=== PATIENT | female | born 1955 | race Caucasian/White ===

== ENCOUNTER 2018-02-07 08:38 | Day surgery (SDC) | payer OTHER ==
--- NOTE | 2018-02-05 13:59 | EKG ---
Test Date: 2018-02-05 Test Time: 09:30:21 Beauty Sales Consultant: HEIDY MEASUREMENT RESULTS: Intervals: Rate: 72 MN: 178 QRSD: 92 QT: 420 QTc: 459 [place]: P: 57 MN: 178 QRS: -2 T: 29 INTERPRETIVE STATEMENTS: Sinus rhythm with marked sinus arrhythmia Otherwise normal ECG Compared to ECG 08/10/2017 23:15:36 Myocardial infarct finding no longer present T-wave abnormality no longer present Possible ischemia no longer present Electronically Signed On 02-05-18 13:59:28 CDT by Rudy Helms
--- OUTSIDE RECORDS SUMMARY | 2018-02-07 08:41 | XMS REPORT | Clinical Summary ---
:1955 Author Organization [facility] Address [address] [place] [address] Phone Care Team Providers Name Role Phone Unavailable Primary Care Provider Unavailable Allergies Active Allergy Reactions Severity Noted Date Comments Antihistamines - Alkylamine 07/10/2017 Morphine 07/10/2017 Current Medications Prescription Sig. Disp. Refills Start End Date Status Date citalopram Take 40 mg by mouth Active (CELEXA) 40 MG daily. tablet LORazepam (ATIVAN) Take 2 mg by mouth Active 1 MG tablet 2 (two) times daily. topiramate Take 100 mg by Active (TOPAMAX) 100 MG mouth 2 (two) times tablet daily. modafinil Take 200 mg by Active (PROVIGIL) 200 MG mouth daily. tablet clopidogrel Take 75 mg by mouth Active (PLAVIX) 75 mg daily. tablet fenofibrate Take 160 mg by Active (TRIGLIDE,LOFIBRA) mouth daily. 160 MG tablet pantoprazole Take 40 mg by mouth Active (PROTONIX) 40 MG daily. tablet traMADol (ULTRAM) Take 50 mg by mouth Active 50 mg tablet every 6 (six) hours as needed for Pain. aspirin 81 MG EC Take 81 mg by mouth Active tablet daily. insulin NPH 100 Inject 10 Units Active unit/mL (3 mL) subcutaneously 2 InPn (two) times daily before meals. metoprolol Take 12.5 mg by 08/05/20 Discontinued (TOPROL-XL) 25 MG mouth daily. 17 24 hr tablet potassium chloride Take 20 mEq by 08/05/20 Discontinued SA mouth every other 17 (K-DUR,KLOR-CON) day. 20 MEQ tablet torsemide Take 20 mg by mouth 08/05/20 Discontinued (DEMADEX) 20 MG every other day. 17 tablet levothyroxine Take 100 mcg by 08/05/20 Discontinued (SYNTHROID, mouth Every morning 17 LEVOTHROID) 100 on an empty MCG tablet stomach. amLODIPine Take 1 tablet (5 mg 30 tablet 0 09/05/19 (NORVASC) 5 MG total) by mouth 7 18 tablet daily for 30 days. levothyroxine Take 1 tablet (112 30 tablet 0 09/05/19 (SYNTHROID, mcg total) by mouth 7 18 LEVOTHROID) 112 Every morning on an MCG tablet empty stomach for 30 days. Active Problems Problem Noted Date Dominique's edema of vocal folds 07/27/2017 Hyperglycemia 07/26/2017 Stridor 07/26/2017 Bacteremia due to methicillin resistant Staphylococcus aureus 07/25/2017 Coffee ground emesis 07/23/2017 Overview: Possibly due to peptic ulcer Self extubation 07/22/2017 Acute respiratory failure (HCC) 07/15/2017 Acute pulmonary edema ([facility]) 07/15/2017 Acute respiratory distress syndrome (ARDS) ([facility]) 07/14/2017 Hypovolemic shock ([facility]) not a complication of surgery 07/13/2017 Postoperative anemia due to acute blood loss 07/13/2017 Respiratory acidosis 07/13/2017 S/P endovascular stent graft for thoracic aortic aneurysm 07/12/2017 Penetrating atherosclerotic ulcer of aorta ([facility]) 07/10/2017 Acute pulmonary insufficiency following nonthoracic surgery ([facility]) 07/10/2017 Acute kidney injury superimposed on chronic kidney disease ([facility]) 07/10/2017 Narcolepsy 07/10/2017 Essential hypertension 07/10/2017 Diabetes ([facility]) 07/10/2017 Atherosclerosis of coronary artery without angina pectoris 07/10/2017 H/O right coronary artery stent placement 07/10/2017 Overview: 2 stents in RCA placed in 2015 Presence of stent in left circumflex coronary artery 07/10/2017 Overview: Placement of stent in circumflex artery in 2014 Tobacco abuse 07/10/2017 Overview: >1 ppd x 40 years Platelet inhibition due to Plavix 07/10/2017 Overview: Last dose of plavix on 07/09/2017 (prior to admission). CAP (community acquired pneumonia) 07/10/2017 Morbid obesity with BMI of 40.0-44.9, adult ([facility]) 07/10/2017 Hypothyroid 07/10/2017 Sleep apnea 07/10/2017 Depression 07/10/2017 Anxiety 07/10/2017 Encounters Date Type Specialty Care Team Description 07/19/2017 Anesthesia Event Intensive Care Fabián Koroma MD 07/12/2017 Anesthesia Event Trell Hogan MD 07/12/2017 Procedure Pass 07/12/2017 Surgery Valdo Cochran REPAIR,TEVAR-THORACIC [place] ENDOVASCULAR ANEURYSM 07/10/2017 - Hospital Encounter Cardiology Valdo Cochran Acute pulmonary 08/05/2017 MD [place] insufficiency;Communit y acquired pneumonia of right lower lobe of lung (HCC);COPD exacerbation (HCC);Acute kidney injury superimposed on chronic kidney disease (HCC);Acute pulmonary insufficiency following nonthoracic surgery (HCC);Bacteremia due to methicillin resistant Staphylococcus aureus;Coagulase negative Staphylococcus bacteremia;H/O endovascular stent graft for abdominal aortic aneurysm 07/10/2017 Orders Only General Internal Medicine after 02/06/2017 Immunizations Name Dates Previously Given Next Due Influenza Three-TIV PF 5+ YR 08/02/2017 Pneumococcal Polysaccharide (Pneumovax) 08/02/2017 Family History Medical History Relation Name Comments Diabetes Brother Cardiomyopathy Father Pancreatic cancer Mother Stroke Sister Relation Name Status Comments Brother Alive Father Mother Sister Alive Social History Tobacco Use Types Packs/Day Years Used Date Current Every Day Smoker Cigarettes 1 40 Smokeless Tobacco: Current User Alcohol Use Drinks/Week oz/Week Comments No Sex Assigned at Date Recorded Not on file Last Filed Vital Signs Vital Sign Reading Time Taken Blood Pressure 146/71 08/05/2017 8:13 AM PAINTER AND DECORATOR Pulse 95 08/05/2017 7:45 PM PAINTER AND DECORATOR Temperature 35.9 C (96.6 F) 08/05/2017 8:13 AM PAINTER AND DECORATOR Respiratory Rate 20 08/05/2017 7:45 PM PAINTER AND DECORATOR Oxygen Saturation 96% 08/05/2017 7:45 PM PAINTER AND DECORATOR Inhaled Oxygen Concentration - - Weight 103.9 kg (229 lb 0.9 oz) 08/05/2017 8:13 AM PAINTER AND DECORATOR Height 157.5 cm (5' 2") 07/10/2017 1:00 AM PAINTER AND DECORATOR Body Mass Index 41.9 08/05/2017 8:13 AM PAINTER AND DECORATOR Plan of Treatment Not on file Implants Implanted Type Area Motor Generator Set Operator Device Expiration Model / Identifier Date Serial / Lot Closure Sys Perclose Progl 6fr [id number] - [id number] Cardiovascular N/A: CAMACHO 04/25/2019 [id number] / Implanted: Qty: 2 on 07/12/2017 by Valdo Cochran MD Groin LAB: [facility] DEV / [id number] Zenith Alpha Thoracicendovascular Graft Other N/A: [employer]ox[employer] 2019 [id number] / Implanted: Qty: 1 on 07/12/2017 by Valdo Cochran MD Aorta / [id number] Procedures Procedure Name Priority Date/Time Associated Diagnosis Comments REPAIR,TEVAR-THORACIC 07/12/2017 7:30 AM ANEURYSM ENDOVASCULAR ANEURYSM PAINTER AND DECORATOR after 02/06/2017 Results RHYTHM STRIP - SCAN (08/16/2017 12:50 PM)Only the most recent of2 resultswithin the time period is included.VASCULAR DIAGRAM -SCAN (08/07/2017 10:00 AM)EKG- SCANNED (08/07/2017 10:00 AM)CTA chest, abdomen & pelvis - for dissection ( 08/05/2017 6:19 PM)Only the most recent of2 resultswithin the time period is included. Specimen Performing Laboratory [employer] Narrative Addendum Begins REPORT STATUS:A Addendum: I agree with the previously described non vascular findings. Signed: Rachna Watson MD Report Verified Date/Time:08/06/2017 10:39:07 Reading Location: [place] [address] Angio Body Reading Room Addendum Ends FINAL REPORT CT angiography of the thoracoabdominal aorta and pelvic arteries, July INDICATION: This is a 61 years old female, with a diagnosis of aortic ulceration presents for assessment. This study is performed in attempt to avoid invasive procedure. TECHNIQUE: Spiral acquisition before and during contrast administration using a Jung multidetector CT scanner. Multiplanar 3-D volume rendering reformation was performed using independent workstation interactively by the dictating physician and the 3-D specialist. The amount of contrast used and method of administration can be found in the scanned Epic document. Note, patient was not following breath-holding, and therefore ECG gating was not utilized as there would be more artefact present with ECG gating and not maintaining breath-holding. This exam was performed according to our departmental dose-optimisation programme, which includes automated exposure control, adjustment of the mA and/or kV according to patient size and/or use of iterative reconstruction technique. Dose modulation, iterative reconstruction, and/or weight based adjustment of the mA/kV was utilized to reduce the radiation dose to as low as reasonably achievable. FINDINGS: VASCULAR: A subclavian central venous catheter is seen, with tip identified in the proximal SVC. The central pulmonary artery is normal in calibre. There is no evidence of central pulmonary artery embolism. The cardiac chamber demonstrate normal atrioventricular and ventriculoarterial concordance, systemic and pulmonary venous return. Status of the heart remains unchanged in the available nondilated data. The left ventricle is normal in size. Left atrial enlargement is identified. Lipomatous hypertrophy of the interatrial septum is seen.Coronary artery origins are normal and coronary artery calcification is seen in the LAD and RCA territories. Status of the ascending thoracic aorta and transverse arch remains unchanged. Calcific and noncalcific atherosclerosis is identified. Once again of note, some noncalcific atherosclerotic plaque is identified at the proximal descending thoracic aorta image 34. There is also predominantly noncalcific atherosclerosis seen in the descending thoracic aorta. Since last examination, a vascular stent is identified, for length of at least 11 cm is well opposed to the aortic wall, extends into the diaphragmatic hiatus. No endoleak is identified. Thereafter, the abdominal aorta appearance is unchanged, with calcific and noncalcific atherosclerosis identified, atelectatic above the aortic bifurcation as described in prior dictation. The common iliac, external iliac, common femoral, and the visualised superficial femoral arteries, bilaterally, widely patent with no obstructive lesion identified. A patent stent is identified in the right common iliac artery, unchanged when compared to prior examination. Status of the arch vessels remains unchanged and they are patent. The left common carotid artery arises from the innominate artery, common variant. Status of the mesenteric and renal arteries are unchanged. The right renal arteries widely patent. There is no extravasation of contrast is identified in the right renal artery. The left renal vein is unremarkable. The right renal vein also appears to be unremarkable. Quantitative dimensions of the thoracoabdominal aorta - not measured. Refer to prior dictation for details. NONVASCULAR: The visualised thyroid gland appears unremarkable. The chest wall and mediastinum has no acute abnormalities identified. As described in prior examination, lumbosacral of lymph nodes identified in the mediastinum, with no significant change. There could be reactive in nature. In the lung windows, no obvious endobronchial lesion is seen and no pleural effusion is identified. Palmar a vascular remains prominent suggesting a degree of cardiac congestion. Dependent changes are seen in the lung bases. Some subsegmental atelectatic changes are seen. Minimal subpleural bleb is identified in the upper lobes. Calcified granuloma is identified in the left lower lobe indicating prior granulomatous disease. In the abdomen, the liver and spleen appears unremarkable. The liver edge is smooth. No abnormal enhancing structure is identified. Note in the AP orientation, the spleen measures 14.6 cm and is considered prominent. Correlate with appropriate aetiology. Patient is post cholecystectomy. The adrenal glands are not enlarged. The pancreas appears unremarkable. Both kidneys have no hydronephrosis identified. Hypodensities are seen in the left kidney no difference to prior examination. However, since prior examination, a large haematoma is identified adjacent to the lateral aspect of the right kidney, representing a subcapsular haematoma. The Hounsfield unit measurement, no enhancement is seen indicating no acute bleeding. Refer to See snapshot for details regarding the dimensions, measure at least 17 cm in length with cross sectional diameter of 10.1 x 8.0 cm. Acuity of this finding cannot be commented upon and this was not present in prior examination. Some stranding is identified inferior to the haematoma, for example in the right pelvis at image 302. Bowel is not well assessed by CT angiography as enteric contrast is not given. No obvious bowel dilation is identified. Scattered diverticular disease is seen in the descending colon with no evidence of acute diverticulitis. In prior examination, small ventral hernia is identified in the midline. Patient is likely post appendectomy. No free air or free fluid seen abdomen and pelvis. The bladder appears grossly unremarkable. The uterus is not identified. No obvious abnormal adnexal masses seen though CT is not optimised in the assessment of pelvic gynaecological structures. No significant retroperitoneal adenopathy is identified. No interval change is seen in the bony structures. CONCLUSIONS: 1. The only new finding in the thoracoabdominal aorta self-examination is a placement of a endostent, for length of at least 11 cm, from the mid descending thoracic aorta extending into the diaphragmatic hiatus, that is well posted aortic wall and no endoleak is identified. Remainder of the thoracoabdominal aorta status is unchanged with the presence of atherosclerosis throughout the aorta for example in the proximal descending thoracic aorta as described above. The pelvic arteries are widely patent. 2.Coronary atherosclerosis. 3.Pulmonary vasculature is prominent suggesting cardiac congestion. There is no evidence of central pulmonary artery embolism. Evidence of prior granulomatous disease. 4.Other findings as described above. Most important finding is haematoma/subcapsular haematoma identified adjacent to the lateral aspect of the right kidney that is a new finding. No increase in Hounsfield unit is seen indicating no acute bleeding is identified. Should future follow-up examination is required during the current examination, only the abdomen and pelvis need to be imaged for assessment of the progression/resolution of the haematoma. Surgical manager of warehouse was paged to inform this finding at the time of dictation. Dr. Dyer was contacted to discuss this finding. 5.An addendum will be dictated by the Physical Science Technician Radiologist regarding the nonvascular findings. Signed: Willis [place] MD Report Verified Date/Time:08/05/2017 19:03:58 Reading Location: [facility] [id number] Cardiology MRI Procedure Note Interface, External Ris In - 08/06/2017 10:41 AM PAINTER AND DECORATOR Addendum Begins REPORT STATUS:A Addendum: I agree with the previously described non vascular findings. Signed: Rachna Watson MD Report Verified Date/Time: 08/06/2017 10:39:07 Reading Location: [place] [id number] Angio Body Reading Room Addendum Ends FINAL REPORT CT angiography of the thoracoabdominal aorta and pelvic arteries, July INDICATION: This is a 61 years old female, with a diagnosis of aortic ulceration presents for assessment. This study is performed in attempt to avoid invasive procedure. TECHNIQUE: Spiral acquisition before and during contrast administration using a Jung multidetector CT scanner. Multiplanar 3-D volume rendering reformation was performed using independent workstation interactively by the dictating physician and the 3-D specialist. The amount of contrast used and method of administration can be found in the scanned Epic document. Note, patient was not following breath-holding, and therefore ECG gating was not utilized as there would be more artefact present with ECG gating and not maintaining breath-holding. This exam was performed according to our departmental dose-optimisation programme, which includes automated exposure control, adjustment of the mA and/or kV according to patient size and/or use of iterative reconstruction technique. Dose modulation, iterative reconstruction, and/or weight based adjustment of the mA/kV was utilized to reduce the radiation dose to as low as reasonably achievable. FINDINGS: VASCULAR: A subclavian central venous catheter is seen, with tip identified in the proximal SVC. The central pulmonary artery is normal in calibre. There is no evidence of central pulmonary artery embolism. The cardiac chamber demonstrate normal atrioventricular and ventriculoarterial concordance, systemic and pulmonary venous return. Status of the heart remains unchanged in the available nondilated data. The left ventricle is normal in size. Left atrial enlargement is identified. Lipomatous hypertrophy of the interatrial septum is seen. Coronary artery origins are normal and coronary artery calcification is seen in the LAD and RCA territories. Status of the ascending thoracic aorta and transverse arch remains unchanged. Calcific and noncalcific atherosclerosis is identified. Once again of note, some noncalcific atherosclerotic plaque is identified at the proximal descending thoracic aorta image 34. There is also predominantly noncalcific atherosclerosis seen in the descending thoracic aorta. Since last examination, a vascular stent is identified, for length of at least 11 cm is well opposed to the aortic wall, extends into the diaphragmatic hiatus. No endoleak is identified. Thereafter, the abdominal aorta appearance is unchanged, with calcific and noncalcific atherosclerosis identified, atelectatic above the aortic bifurcation as described in prior dictation. The common iliac, external iliac, common femoral, and the visualised superficial femoral arteries, bilaterally, widely patent with no obstructive lesion identified. A patent stent is identified in the right common iliac artery, unchanged when compared to prior examination. Status of the arch vessels remains unchanged and they are patent. The left common carotid artery arises from the innominate artery, common variant. Status of the mesenteric and renal arteries are unchanged. The right renal arteries widely patent. There is no extravasation of contrast is identified in the right renal artery. The left renal vein is unremarkable. The right renal vein also appears to be unremarkable. Quantitative dimensions of the thoracoabdominal aorta - not measured. Refer to prior dictation for details. NONVASCULAR: The visualised thyroid gland appears unremarkable. The chest wall and mediastinum has no acute abnormalities identified. As described in prior examination, lumbosacral of lymph nodes identified in the mediastinum, with no significant change. There could be reactive in nature. In the lung windows, no obvious endobronchial lesion is seen and no pleural effusion is identified. Palmar a vascular remains prominent suggesting a degree of cardiac congestion. Dependent changes are seen in the lung bases. Some subsegmental atelectatic changes are seen. Minimal subpleural bleb is identified in the upper lobes. Calcified granuloma is identified in the left lower lobe indicating prior granulomatous disease. In the abdomen, the liver and spleen appears unremarkable. The liver edge is smooth. No abnormal enhancing structure is identified. Note in the AP orientation, the spleen measures 14.6 cm and is considered prominent. Correlate with appropriate aetiology. Patient is post cholecystectomy. The adrenal glands are not enlarged. The pancreas appears unremarkable. Both kidneys have no hydronephrosis identified. Hypodensities are seen in the left kidney no difference to prior examination. However, since prior examination, a large haematoma is identified adjacent to the lateral aspect of the right kidney, representing a subcapsular haematoma. The Hounsfield unit measurement, no enhancement is seen indicating no acute bleeding. Refer to See snapshot for details regarding the dimensions, measure at least 17 cm in length with cross sectional diameter of 10.1 x 8.0 cm. Acuity of this finding cannot be commented upon and this was not present in prior examination. Some stranding is identified inferior to the haematoma, for example in the right pelvis at image 302. Bowel is not well assessed by CT angiography as enteric contrast is not given. No obvious bowel dilation is identified. Scattered diverticular disease is seen in the descending colon with no evidence of acute diverticulitis. In prior examination, small ventral hernia is identified in the midline. Patient is likely post appendectomy. No free air or free fluid seen abdomen and pelvis. The bladder appears grossly unremarkable. The uterus is not identified. No obvious abnormal adnexal masses seen though CT is not optimised in the assessment of pelvic gynaecological structures. No significant retroperitoneal adenopathy is identified. No interval change is seen in the bony structures. CONCLUSIONS: 1. The only new finding in the thoracoabdominal aorta self-examination is a placement of a endostent, for length of at least 11 cm, from the mid descending thoracic aorta extending into the diaphragmatic hiatus, that is well posted aortic wall and no endoleak is identified. Remainder of the thoracoabdominal aorta status is unchanged with the presence of atherosclerosis throughout the aorta for example in the proximal descending thoracic aorta as described above. The pelvic arteries are widely patent. 2. Coronary atherosclerosis. 3. Pulmonary vasculature is prominent suggesting cardiac congestion. There is no evidence of central pulmonary artery embolism. Evidence of prior granulomatous disease. 4. Other findings as described above. Most important finding is haematoma/subcapsular haematoma identified adjacent to the lateral aspect of the right kidney that is a new finding. No increase in Hounsfield unit is seen indicating no acute bleeding is identified. Should future follow-up examination is required during the current examination, only the abdomen and pelvis need to be imaged for assessment of the progression/resolution of the haematoma. Surgical manager of warehouse was paged to inform this finding at the time of dictation. Dr. Dyer was contacted to discuss this finding. 5. An addendum will be dictated by the Physical Science Technician Radiologist regarding the nonvascular findings. Signed: Willis [place] MD Report Verified Date/Time: 08/05/2017 19:03:58 Reading Location: [place] [address] Cardiology MRI -Glucose meter (08/05/2017 1:01 PM)Only the most recent of115 resultswithin the time period is included. Component Value Ref Range POC-Glucose Meter 100Comment: TESTED AT [address] 70 - 110 mg/dL [address] Specimen Performing Laboratory Blood [facility] [address] [address] XR chest 1 view portable / bedside (08/05/2017 8:23 AM)Only the most recent of34 resultswithin the time period is included. Specimen Performing Laboratory [facility] Narrative FINAL REPORT Portable chest 08/05/2017 COMPARISON: 08/04/2017 Right-sided PICC line is seen with its tip at the junction of superior vena cava and right atrium and is unchanged. Mild linear opacities in both lung bases remain consistent with scarring or atelectasis. The remainder of the lungs appear clear. Hardware from prior TEVAR is again noted. The heart remains borderline enlarged. No pleural effusions are seen. Mild arthritic changes again seen in both shoulder joints. CONCLUSION: No significant change. Signed: Gonzalez Trimble MD Report Verified Date/Time:08/05/2017 08:46:21 Reading Location: [facility] Radiology Reading Room Procedure Note Interface, External Ris In - 08/05/2017 9:02 AM PAINTER AND DECORATOR FINAL REPORT Portable chest 08/05/2017 COMPARISON: 08/04/2017 Right-sided PICC line is seen with its tip at the junction of superior vena cava and right atrium and is unchanged. Mild linear opacities in both lung bases remain consistent with scarring or atelectasis. The remainder of the lungs appear clear. Hardware from prior TEVAR is again noted. The heart remains borderline enlarged. No pleural effusions are seen. Mild arthritic changes again seen in both shoulder joints. CONCLUSION: No significant change. Signed: Gonzalez Trimble MD Report Verified Date/Time: 08/05/2017 08:46:21 Reading Location: [facility] Radiology Reading Room aPTT (08/05/2017 5:40 AM)Only the most recent of27 resultswithin the time period is included. Component Value Ref Range PTT 30.7 22.5 - 36.0 seconds Specimen Performing Laboratory Blood [address] [address] Prothrombin time/INR (08/05/2017 5:40 AM)Only the most recent of30 resultswithin the time period is included. Component Value Ref Range Protime 13.2 11.7 - 14.7 seconds INR 1.0 <=5.9 Specimen Performing Laboratory Blood [address] [address] Narrative RECOMMENDED COUMADIN/WARFARIN INR THERAPY RANGES STANDARD DOSE: 2.0 - 3.0 Includes: PROPHYLAXIS for venous thrombosis, systemic embolization; TREATMENT for venous thrombosis and/or pulmonary embolus. HIGH RISK: Target INR is 2.5-3.5 for patients with mechanical heart valves. CBC (Hemogram only) (08/05/2017 5:40 AM)Only the most recent of26 resultswithin the time period is included. Component Value Ref Range WBC 5.5 3.5 - 10.5 K/L RBC 3.13 (L) 3.93 - 5.22 M/L Hemoglobin 9.1 (L) 11.2 - 15.7 GM/DL Hematocrit 30.2 (L) 34.1 - 44.9 % MCV 96.5 (H) 79.4 - 94.8 fL MCH 29.1 25.6 - 32.2 pg MCHC 30.1 (L) 32.2 - 35.5 GM/DL RDW 17.2 (H) 11.7 - 14.4 % Platelets 186 150 - 450 K/CU MM MPV 12.0 9.4 - 12.3 fL nRBC 0 0 - 0 /100 WBC Specimen Performing Laboratory Blood [address] [address] Phosphorus (08/05/2017 5:40 AM)Only the most recent of30 resultswithin the time period is included. Component Value Ref Range Phosphorus 4.1 2.3 - 4.7 mg/dL Specimen Performing Laboratory Blood [address] [address] Magnesium (08/05/2017 5:40 AM)Only the most recent of32 resultswithin the time period is included. Component Value Ref Range Magnesium 1.6 1.6 - 2.6 mg/dL Specimen Performing Laboratory Blood [address] [address] Basic Metabolic Panel (08/05/2017 5:40 AM)Only the most recent of30 resultswithin the time period is included. Component Value Ref Range Sodium 138 136 - 145 meq/L Potassium 4.5 3.5 - 5.1 meq/L Chloride 106 98 - 107 meq/L CO2 23 22 - 29 meq/L BUN 12 7 - 21 mg/dL Creatinine 1.05 0.57 - 1.25 mg/dL Glucose 105 70 - 105 mg/dL Calcium 9.3 8.4 - 10.2 mg/dL EGFR 53Comment: ESTIMATED GFR IS NOT ACCURATE mL/min/1.73 sq m CREATININE CLEARANCE IN PREDICTING GLOMERULAR FILTRATION RATE. ESTIMATED GFR IS NOT APPLICABLE FOR DIALYSIS PATIENTS. Specimen Performing Laboratory Blood [address] [address] Vancomycin level, trough (08/01/2017 7:58 PM)Only the most recent of3 resultswithin the time period is included. Component Value Ref Range Vancomycin Tr 12.2 10.0 - 20.0 ug/mL Specimen Performing Laboratory Blood [address] [address] [place] esoph swallow funct with cine video (07/30/2017 2:17 PM) Specimen Performing Laboratory GE RIS Narrative FINAL REPORT Modified barium swallow with speech pathology History: Aspiration Technique: Modified barium swallow was performed in conjunction with speech pathology. Examination utilized various textures of barium. Fluoroscopic observation was performed during swallowing. Total fluoroscopy time: 1.1 minutes Total number of films: 1 IMPRESSION: There is silent aspiration with nectar and honey thick liquid barium. There is flash penetration with applesauce. Please refer to the speech pathology report for further details. Signed: Rayo Leon MD Report Verified Date/Time:07/30/2017 14:35:49 Reading Location: [address] Ortho Consult Reading Room Procedure Note Interface, External Ris In - 09/11/2017 1:33 PM PAINTER AND DECORATOR FINAL REPORT Modified barium swallow with speech pathology History: Aspiration Technique: Modified barium swallow was performed in conjunction with speech pathology. Examination utilized various textures of barium. Fluoroscopic observation was performed during swallowing. Total fluoroscopy time: 1.1 minutes Total number of films: 1 IMPRESSION: There is silent aspiration with nectar and honey thick liquid barium. There is flash penetration with applesauce. Please refer to the speech pathology report for further details. Signed: Rayo Leon MD Report Verified Date/Time: 07/30/2017 14:35:49 Reading Location: [address] Ortho Consult Reading Room Blood culture (07/29/2017 6:17 PM)Only the most recent of9 resultswithin the time period is included. Component Value Ref Range Result No growth in 5 days Specimen Performing Laboratory Blood - Central Venous Line [address] [address] XR abdomen / KUB 1 view (07/29/2017 8:59 AM)Only the most recent of4 resultswithin the time period is included. Specimen Performing Laboratory GE RIS Narrative FINAL REPORT Abdomen one view Comparison: July 22, 2017 Reason for exam:reposition of NGT Findings: Feeding tube projects over the expected location of distal gastric body. Gas pattern appears nonspecific. Signed: Eleazar Shepard MD Report Verified Date/Time:07/29/2017 09:40:24 Reading Location: [facility] Radiology Reading Room Procedure Note Interface, External Ris In - 07/29/2017 9:42 AM PAINTER AND DECORATOR FINAL REPORT Abdomen one view Comparison: July 22, 2017 Reason for exam: reposition of NGT Findings: Feeding tube projects over the expected location of distal gastric body. Gas pattern appears nonspecific. Signed: Eleazar Shepard MD Report Verified Date/Time: 07/29/2017 09:40:24 Reading Location: [facility] Radiology Reading Room Potassium (07/28/2017 4:11 PM)Only the most recent of5 resultswithin the time period is included. Component Value Ref Range Potassium 4.1 3.5 - 5.1 meq/L Specimen Performing Laboratory Blood [place] [address] Narrative PRN - repeat potassium levels every 1 hour until glucose level is less than 450 mg/dL Vancomycin level, random (07/28/2017 4:10 AM)Only the most recent of2 resultswithin the time period is included. Component Value Ref Range Vancomycin Rm 25.6 ug/mL Specimen Performing Laboratory Blood - Line, Arterial [address] [address] Narrative Reference Range: No Normals Blood gas, arterial (07/28/2017 4:09 AM)Only the most recent of25 resultswithin the time period is included. Component Value Ref Range pH, Arterial 7.37 7.35 - 7.45 pCO2, Arterial 51 (H) 35 - 45 mmHg pO2, Arterial 76 (L) 80 - 90 mmHg O2 Sat, Arterial 95.0 (L) 96.0 - 97.0 % HCO3, Arterial 29 21 - 29 mmol/L Base Excess, Arterial 3.0 -2.0 - 3.0 mmol/L Patient Temperature 36.5 C FIO2 40.0 % Specimen Performing Laboratory Blood, Arterial [address] [address] Narrative Daily ABG with morning labs while patient is intubated. Glucose-STAT (07/26/2017 12:29 AM) Component Value Ref Range Glucose 336 (H) 70 - 105 mg/dL Specimen Performing Laboratory Blood - Line, Arterial [address] [address] Bronchial culture + gram stain (07/24/2017 12:40 PM) Component Value Ref Range Result 1+ Normal respiratory ambreen present Gram Stain Result 1+ WBCs Gram Stain Result No organisms seen Specimen Performing Laboratory BAL - Bronchial Wash [address] [address] Urine culture (07/24/2017 11:37 AM) Component Value Ref Range Result No growth Specimen Performing Laboratory Urine - Urine, Vora [address] [address] BCID (07/24/2017 11:31 AM) Component Value Ref Range Scan Result Specimen Performing Laboratory Blood [address] [address] Narrative Result comments: 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 Other organisms and resistance markers not contained in this PCR panel cannot be excluded and follow-up of traditional culture results is required. This sample was tested at the [facility] Clinical Microbiology Laboratory using the StartMeArray Blood Culture ID Panel. This test is FDA cleared for in vitro diagnostic use and has been verified and approved by the [facility] Clinical [facility]biolog[facility] for clinical use. Reference Range: Not Detected Sputum Culture + Gram Stain (07/24/2017 11:20 AM)Only the most recent of2 resultswithin the time period is included. Component Value Ref Range Result 1+ Normal respiratory ambreen present Gram Stain Result 1+ WBCs Gram Stain Result 0-5 epithelial cells Gram Stain Result No organisms seen Specimen Performing Laboratory Sputum - Suctioned [facility] [address] TSH/Free T4 If Indicated (07/20/2017 3:46 AM)Only the most recent of3 resultswithin the time period is included. Component Value Ref Range TSH 1.13 0.35 - 4.94 uIU/mL Specimen Performing Laboratory Blood - Line, Arterial [address] [address] TRANSFUSION SERVICE REPORT - SCAN (07/17/2017 5:41 PM)Only the most recent of6 resultswithin the time period is included.Comprehensive metabolic panel (2016 11:51 AM) Component Value Ref Range Protein, Total 6.9 6.0 - 8.3 gm/dL Albumin 3.2 (L) 3.5 - 5.0 g/dL Alkaline Phosphatase 47 40 - 150 U/L Total Bilirubin 1.1 0.2 - 1.2 mg/dL Sodium 157 (H) 136 - 145 meq/L Potassium 3.3 (L) 3.5 - 5.1 meq/L Chloride 114 (H) 98 - 107 meq/L CO2 31 (H) 22 - 29 meq/L BUN 32 (H) 7 - 21 mg/dL Creatinine 1.37 (H) 0.57 - 1.25 mg/dL Glucose 107 (H) 70 - 105 mg/dL Calcium 9.7 8.4 - 10.2 mg/dL AST 34 5 - 34 U/L ALT 26 6 - 55 U/L EGFR 39Comment: ESTIMATED GFR IS NOT ACCURATE mL/min/1.73 sq m CREATININE CLEARANCE IN PREDICTING GLOMERULAR FILTRATION RATE. ESTIMATED GFR IS NOT APPLICABLE FOR DIALYSIS PATIENTS. Specimen Performing Laboratory Blood [address] [address] Hepatic function panel (07/17/2017 12:10 AM) Component Value Ref Range Protein, Total 6.6 6.0 - 8.3 gm/dL Albumin 3.1 (L) 3.5 - 5.0 g/dL Total Bilirubin 1.0 0.2 - 1.2 mg/dL Bilirubin, Direct 0.7 (H) 0.1 - 0.5 mg/dL Alkaline Phosphatase 40 40 - 150 U/L AST 22 5 - 34 U/L ALT 22 6 - 55 U/L Specimen Performing Laboratory Blood [facility] [address] [address] CBC with platelet count + automated diff (07/17/2017 12:03 AM)Only the most recent of4 resultswithin the time period is included. Component Value Ref Range WBC 5.9 3.5 - 10.5 K/L RBC 3.20 (L) 3.93 - 5.22 M/L Hemoglobin 9.4 (L) 11.2 - 15.7 GM/DL Hematocrit 29.4 (L) 34.1 - 44.9 % MCV 91.9 79.4 - 94.8 fL MCH 29.4 25.6 - 32.2 pg MCHC 32.0 (L) 32.2 - 35.5 GM/DL RDW 16.4 (H) 11.7 - 14.4 % Platelets 136 (L) 150 - 450 K/CU MM MPV 11.9 9.4 - 12.3 fL nRBC 1 (H) 0 - 0 /100 WBC % Neutros 77 % % Lymphs 9 % % Monos 8 % % Eos 0 % % Baso 0 % # Neutros 4.52 1.56 - 6.13 K/L # Lymphs 0.53 (L) 1.18 - 3.74 K/L # Monos 0.44 (H) 0.24 - 0.36 K/L # Eos 0.01 (L) 0.04 - 0.36 K/L # Baso 0.00 (L) 0.01 - 0.08 K/L Immature Granulocytes-Relative 6 (H) 0 - 1 % Specimen Performing Laboratory Blood [facility] [address] [address] CBC with platelet count + automated diff (07/17/2017 12:03 AM)Only the most recent of4 resultswithin the time period is included. Specimen Performing Laboratory Blood Narrative The following orders were created for panel order CBC with platelet count + automated diff. Procedure Abnormality Status --------- ------ CBC with platelet count ...[[id number]]AbnormalFinal result Manual Differential[[id number]] Please view results for these tests on the individual orders. Prepare Leuko-Red RBC (07/16/2017 11:54 PM)Only the most recent of6 resultswithin the time period is included. Component Value Ref Range CROSSMATCH COMPATIBLE Unit ABO A Pos UNIT NUMBER [id number] Status TRANSFUSED Blood Bank Product RED BLOOD CELLS PRODUCT CODE F0282Y51 CROSSMATCH COMPATIBLE Unit ABO A Pos UNIT NUMBER [id number] Status TRANSFUSED Blood Bank Product RED BLOOD CELLS PRODUCT CODE [id number] Specimen Performing Laboratory Other [employer] [place] Hemoglobin and hematocrit (07/16/2017 2:18 PM)Only the most recent of5 resultswithin the time period is included. Component Value Ref Range Hemoglobin 9.3 (L) 11.2 - 15.7 GM/DL Hematocrit 28.7 (L) 34.1 - 44.9 % Specimen Performing Laboratory Blood [address] [address] Glucose-Stat Lab (07/15/2017 12:25 PM)Only the most recent of6 resultswithin the time period is included. Component Value Ref Range Glucose 90 70 - 110 mg/dL Specimen Performing Laboratory Blood, Arterial - Line, Arterial [address] [address] HGB/HCT (H&H)-Stat Lab (07/15/2017 12:25 PM)Only the most recent of6 resultswithin the time period is included. Component Value Ref Range Hemoglobin 10.2 (L) 12.0 - 15.0 g/dL Hematocrit 30.0 (L) 36.0 - 45.0 % Specimen Performing Laboratory Blood, Arterial - Line, Arterial [address] [address] Transfuse Leuko-Red RBC (07/15/2017 11:31 AM)Only the most recent of11 resultswithin the time period is included.Type and screen, automated (2016 8:42 AM)Only the most recent of2 resultswithin the time period is included. Component Value Ref Range ABO/RH AUTOMATED (BEAKER) A POSITIVE Ab Scrn NEGATIVE Specimen Performing Laboratory Blood [address] [address] ECG 12 lead (07/13/2017 8:53 AM)Only the most recent of2 resultswithin the time period is included. Specimen Performing Laboratory GE MUSE Narrative Ventricular Rate 99 BPM Atrial Rate 99 BPM P-R Interval 138 ms QRS Duration 86 ms Q-T Interval 356 ms QTC Calculation(Bazett) 456 ms P [place] 58 degrees R [place] 13 degrees T [place] 77 degrees Poor data quality, interpretation may be adversely affected Sinus rhythm with Premature atrial complexes Otherwise normal ECG When compared with ECG of 10-JUL-2017 02:13, Premature atrial complexes are now Present Borderline criteria for Anterior infarct are no longer Present Borderline criteria for Anterolateral infarct are no longer Present Nonspecific T wave abnormality no longer evident in Anterior leads QT has shortened Confirmed by MD DEVINE JOSEPH P ([id number]) on 07/15/2017 8:25:38 AM Procedure Note Interface, External Ris In - 07/15/2017 8:25 AM PAINTER AND DECORATOR Ventricular Rate 99 BPM Atrial Rate 99 BPM P-R Interval 138 ms QRS Duration 86 ms Q-T Interval 356 ms QTC Calculation(Bazett) 456 ms P [place] 58 degrees R [place] 13 degrees T [place] 77 degrees Poor data quality, interpretation may be adversely affected Sinus rhythm with Premature atrial complexes Otherwise normal ECG When compared with ECG of 10-JUL-2017 02:13, Premature atrial complexes are now Present Borderline criteria for Anterior infarct are no longer Present Borderline criteria for Anterolateral infarct are no longer Present Nonspecific T wave abnormality no longer evident in Anterior leads QT has shortened Confirmed by MD DEVINE JOSEPH P ([id number]) on 07/15/2017 8:25:38 AM Potassium-Stat Lab (07/13/2017 7:59 AM)Only the most recent of4 resultswithin the time period is included. Component Value Ref Range Potassium 5.2 3.6 - 5.5 meq/L Specimen Performing Laboratory Blood, Arterial - Line, Arterial [address] [address] Calcium, Ionized (07/13/2017 7:59 AM)Only the most recent of5 resultswithin the time period is included. Component Value Ref Range Calcium, Ion 1.24 1.12 - 1.27 mmol/L pH, Blood 7.19 Specimen Performing Laboratory Blood - Line, [address] [address] Fibrinogen (07/13/2017 7:59 AM) Component Value Ref Range Fibrinogen 282 225 - 434 mg/dl Specimen Performing Laboratory Blood - Line, Arterial [address] [address] [facility]RL CRITICAL LABS (ABG,NA,K,H&H,GLUCOSE) (07/12/2017 2:08 PM)Only the most recent of3 resultswithin the time period is included. Specimen Performing Laboratory Blood, Arterial Narrative The following orders were created for panel order [facility]RL CRITICAL LABS (ABG,NA,K,H&H,GLUCOSE). Procedure Abnormality Status --------- ------ Blood gas, arterial[[id number]]AbnormalFinal result Sodium Na-Stat Lab[[id number]] NormalFinal result Potassium-Stat Lab[[id number]] NormalFinal result Glucose-Stat Lab[[id number]] AbnormalFinal result HGB/HCT (H&H)-Stat Lab[[id number]] Abnormal Final result Please view results for these tests on the individual orders. Sodium Na-Stat Lab (07/12/2017 2:08 PM)Only the most recent of3 resultswithin the time period is included. Component Value Ref Range Sodium 135 135 - 148 meq/L Specimen Performing Laboratory Blood, Arterial [address] [address] Platelet Aggregation: Function Screen (07/12/2017 11:25 AM)Only the most recent of2 resultswithin the time period is included. Component Value Ref Range Weak ADP 70 60 - 91 % Plt. Function Screen Interpretation 60-100% indicates normal platelet function Pathologist: Romel Hamilton MD (electronic signature) Platelets 231 150 - 450 K/CU MM Specimen Performing Laboratory Blood [address] [address] Prepare RBC (07/12/2017 11:06 AM) Component Value Ref Range CROSSMATCH COMPATIBLE Unit ABO A Pos UNIT NUMBER [id number] Status RETURNED FROM ISSUE Blood Bank Product RED BLOOD CELLS PRODUCT CODE [id number] CROSSMATCH COMPATIBLE Unit ABO A Pos UNIT NUMBER [id number] Status RETURNED FROM ISSUE Blood Bank Product RED BLOOD CELLS PRODUCT CODE [id number] Specimen Performing Laboratory [employer] [place] POC ACTIVATED CLOTTING TIME (07/12/2017 9:55 AM)Only the most recent of3 resultswithin the time period is included. Component Value Ref Range Activated Clotting Time 164Comment: TESTED AT [address] sec [id number] Specimen Performing Laboratory Blood [address] [address] PT/aPTT (07/12/2017 4:01 AM)Only the most recent of2 resultswithin the time period is included. Component Value Ref Range Protime 13.0 11.7 - 14.7 seconds INR 1.0 <=5.9 PTT 29.2 22.5 - 36.0 seconds Specimen Performing Laboratory Blood - Arm, Right [address] [address] Narrative RECOMMENDED COUMADIN/WARFARIN INR THERAPY RANGES STANDARD DOSE: 2.0 - 3.0 Includes: PROPHYLAXIS for venous thrombosis, systemic embolization; TREATMENT for venous thrombosis and/or pulmonary embolus. HIGH RISK: Target INR is 2.5-3.5 for patients with mechanical heart valves. Urinalysis w/Microscopic + Reflex to Culture (07/10/2017 2:34 PM) Component Value Ref Range Color, UA Yellow Clarity, UA Clear Specific [place], UA 1.049 (H) 1.001 - 1.035 pH, UA 5.5 5.0 - 8.0 Protein, UA 10 mg/dL (A) Negative Glucose, UA Negative Negative Ketones, UA Negative Negative Bilirubin, UA Negative Negative Blood, UA Negative Negative Nitrite, UA Negative Negative Leukocytes, UA Negative Negative Urobilinogen, UA 2.0 (H) 0.2 - 1.0 mg/dL RBC, UA <1 /HPF WBC, UA <1 /HPF Squam Epithel, UA 1 /HPF Specimen Source Specimen Performing Laboratory Urine - Urine, Voided [address] [address] PFA-100 (07/10/2017 11:32 AM) Component Value Ref Range COL/EPI Closure Time >300 (H) 78 - 191 Seconds COL/ADP Closure Time 76 43 - 122 Seconds Platelets 188 150 - 450 K/CU MM Specimen Performing Laboratory Blood [address] [address] ECHOCARDIOGRAM REPORT - SCAN (07/10/2017 9:23 AM)B-type Natriuretic Factor (BNP ) (07/10/2017 8:10 AM)Only the most recent of2 resultswithin the time period is included. Component Value Ref Range BNP 86 0 - 100 pg/mL Specimen Performing Laboratory Blood [facility] [address] [address] 2D Echo W/Doppler(CW/PW/Color) (07/10/2017 3:24 AM) Component Value Ref Range Ejection Fraction Specimen Performing Laboratory SLE ECHO HEARTLAB MKCKESSON CPACS Narrative Transthoracic Echocardiography Report (TTE) Demographics Patient Name APARNA MOTA Date of Study 07/10/2017 LESVIA [id number] Female Visit Number [id number] Room Number 7A07 Number Date of Birth1955Referring Physician Sammie Lyle Age61 year(s)Pharm Tech Ángel Barker, [facility] AnalystAlex Jennifer InterpretingPhysician EMELI Garner Procedure Type of Study TTE procedure:2DECHO W DOPPLER(CW/PW/COLOR) (STAT) Indications:CHF. Clinical History HGB 12.7 HCT 41.7 % DM, HTN Height: 62 inches Weight: 103.42 kg (228 lbs) BSA: 2.02 m^2 BMI: 41.7 kg/m^2 HR: 77 bpm BP: 107/68 mmHg Summary 1. All of the LV segments contract normally. Estimated LVEF by qualitative assessment is normal (55-60%) 2. Moderate aortic stenosis. Estimated peak systolic PA pressure is 35-40 mmHg . 1.3 cm2. Meant gradient 16mmHg. Normal SV index. 3. Estimated peak systolic PA pressure is 35-40 mmHg . Moderate aortic stenosis. Estimated peak systolic PA pressure is 35-40 mmHg . 1.3 cm2. Meant gradient 16mmHg. Normal SV index. Previous Study No prior exam available for comparison. Signature Findings Technical Quality: Technically difficult exam. Left Ventricle The left ventricle is chamber size (by PSLAX dimension) is normal (female - LVIDd 3.8-5.2cm) . Mild concentric LV hypertrophy. All of the LV segments contract normally . Global LV systolic function normal . Estimated LVEF by qualitative assessment is normal (55-60%) . Left AtriumLA size is smyb-ev-rwnhnkxurm enlarged . Right VentricleNormal right ventricle structure and function. Right Atrium Normal right atrium. Aortic Valve Moderate AoV cusp thickening. Moderate AoV cusp calcification. Moderate aortic stenosis. Estimated peak systolic PA pressure is 35-40 mmHg . 1.3 cm2. Meant gradient 16mmHg. Normal SV index. Mitral Valve Mild mitral annular calcification. Tricuspid ValveA trace of tricuspid regurgitation. Estimated peak systolic PA pressure is 35-40 mmHg . Pulmonic Valve Normal PV structure appears normal by available views. AortaAortic root size (SInus of Valsalva diameter) is normal . IVC/SVC/PA/PV/PleuralThe estimated RA pressure by IVC dynamics 5-10mmHg . Chambers/Structures Left Atrium LA Dimension: 4.01 cmLA Area: 25.76 cm^2 LA Volume: 80.93 ml LA Vol. Index: 40 ml/m^2 Left Ventricle LVIDd: 5.35 cm LV Septum Diastolic: 1.13 cm LV PW Diastolic: 1.17 cm LVOT Diameter: 2.15 cm Aorta Ao Root S of Kala.: 3.02 cm Doppler/Quantitative Measurements Aortic Valve Peak Velocity: 2.79 m/sMean Velocity: 1.87 m/s Peak Gradient: 31.08 mmHgMean Gradient: 16.21 mmHg AV Area (continuity): 1.29 cm^2 AV VTI: 65.27 cm AV DVI: 0.35 LVOT Peak Velocity: 1.09 m/s Peak Gradient: 4.74 mmHg Mean Velocity: 0.68 m/s Mean Gradient: 2.26 mmHg LVOT Diameter: 2.15 cmLVOT VTI: 23.14 cm LVOT Area: 3.63 cm^2LVOT SV:83.97 ml LVOT CO: 6.47 l/min LVOT CI: 3.2 l/min/m^2 Procedure Note Interface, External Ris In - 07/10/2017 9:00 AM PAINTER AND DECORATOR Transthoracic Echocardiography Report (TTE) Demographics Patient Name APARNA MOTA Date of Study 07/10/2017 LESVIA Gender Female Visit Number [id number] Race Unknown Room Number 7A07 Number Date of 1955 Referring Physician Sammie Lyle Age 61 year(s) Pharm Tech Ángel Barker, [facility] Efficiency Manager Niraj Rodriguez Interpreting Physician EMELI Garner Procedure Type of Study TTE procedure:2DECHO W DOPPLER(CW/PW/COLOR) (STAT) Indications:CHF. Clinical History HGB 12.7 HCT 41.7 % DM, HTN Height: 62 inches Weight: 103.42 kg (228 lbs) BSA: 2.02 m^2 BMI: 41.7 kg/m^2 HR: 77 bpm BP: 107/68 mmHg Summary 1. All of the LV segments contract normally. Estimated LVEF by qualitative assessment is normal (55-60%) 2. Moderate aortic stenosis. Estimated peak systolic PA pressure is 35-40 mmHg . 1.3 cm2. Meant gradient 16mmHg. Normal SV index. 3. Estimated peak systolic PA pressure is 35-40 mmHg . Moderate aortic stenosis. Estimated peak systolic PA pressure is 35-40 mmHg . 1.3 cm2. Meant gradient 16mmHg. Normal SV index. Previous Study No prior exam available for comparison. Signature Findings Technical Quality: Technically difficult exam. Left Ventricle The left ventricle is chamber size (by PSLAX dimension) is normal (female - LVIDd 3.8-5.2cm) . Mild concentric LV hypertrophy. All of the LV segments contract normally . Global LV systolic function normal . Estimated LVEF by qualitative assessment is normal (55-60%) . Left Atrium LA size is whhe-wu-kfaysicqpy enlarged . Right Ventricle Normal right ventricle structure and function. Right Atrium Normal right atrium. Aortic Valve Moderate AoV cusp thickening. Moderate AoV cusp calcification. Moderate aortic stenosis. Estimated peak systolic PA pressure is 35-40 mmHg . 1.3 cm2. Meant gradient 16mmHg. Normal SV index. Mitral Valve Mild mitral annular calcification. Tricuspid Valve A trace of tricuspid regurgitation. Estimated peak systolic PA pressure is 35-40 mmHg . Pulmonic Valve Normal PV structure appears normal by available views. Aorta Aortic root size (SInus of Valsalva diameter) is normal . IVC/SVC/PA/PV/Pleural The estimated RA pressure by IVC dynamics 5-10mmHg . Chambers/Structures Left Atrium LA Dimension: 4.01 cm LA Area: 25.76 cm^2 LA Volume: 80.93 ml LA Vol. Index: 40 ml/m^2 Left Ventricle LVIDd: 5.35 cm LV Septum Diastolic: 1.13 cm LV PW Diastolic: 1.17 cm LVOT Diameter: 2.15 cm Aorta Ao Root S of Kala.: 3.02 cm Doppler/Quantitative Measurements Aortic Valve Peak Velocity: 2.79 m/s Mean Velocity: 1.87 m/s Peak Gradient: 31.08 mmHg Mean Gradient: 16.21 mmHg AV Area (continuity): 1.29 cm^2 AV VTI: 65.27 cm AV DVI: 0.35 LVOT Peak Velocity: 1.09 m/s Peak Gradient: 4.74 mmHg Mean Velocity: 0.68 m/s Mean Gradient: 2.26 mmHg LVOT Diameter: 2.15 cm LVOT VTI: 23.14 cm LVOT Area: 3.63 cm^2 LVOT SV:83.97 ml LVOT CO: 6.47 l/min LVOT CI: 3.2 l/min/m^2 after 02/06/2017
--- OUTSIDE RECORDS SUMMARY | 2018-02-07 08:45 | XMS REPORT ---
:1955 [facility] [address] [place] [address] [address] Care Team Providers Name Role Phone TYSON JADE Unavailable Unavailable Problems This patient has no known problems. Allergies, Adverse Reactions, Alerts This patient has no known allergies or adverse reactions. Medications This patient has no known medications. Results Test Description Test Time Test Comments Text Results Atomic Results Result Comments CTA, CHEST, 2017-08-06 Reason for Addendum BeginsREPORT ABDOMEN - PELVIS, 10:39:00 exam:->post TEVAR, STATUS:A PATIENT ID: FOR DISSECTION , r/o Endoleak [id number] Addendum: I agree with the previously described non vascular findings. Signed: Rachna Watson MDReport Verified Date/Time: 08/06/2017 10:39:07 Reading Location: [place] [address] Angio Body Reading RoomAddendum EndsFINAL REPORT CT angiography of the thoracoabdominal aorta [...] of the progression/resolution of the haematoma. Surgical warehouse logistics coordinator was paged to inform this finding at the time of dictation. Dr. Dyer was contacted to discuss this finding. 5. An addendum will be dictated by the Management Lead Radiologist regarding the nonvascular findings. Signed: Willis Washington Verified Date/Time: 08/05/2017 19:03:58 Reading Location: [place] [address] Cardiology MRI -GLUCOSE METER 2017-08-05 13:04:00 Test Item Value Reference Range Comments POC-GLUCOSE METER (BEAKER) (test 100 mg/dL 70-110 TESTED AT [facility] [address] [facility] rzdk=5279) [facility] [address] RAD, CHEST, 1 VIEW, NON [id number] 08:46:00Reason for exam:->s/p TEVAR with linesShould this be performed at the bedside?->YesFINAL REPORT Portable chest 08/05/2017 COMPARISON: 08/04/2017 Right-sided [...] CONCLUSION: No significant change. Signed: Gonzalez Trimble Verified Date/Time: 08/05/2017 08:46:21 Reading Location: [facility] Radiology Reading Room Electronically signed by: GONZALEZ TRIMBLE M.D. on 08:46 AMPOCT-GLUCOSE [id number] 08:11:00 Test Item Value Reference Range Comments POC-GLUCOSE METER (BEAKER) 111 mg/dL 70-110 TESTED AT [facility] [address] (test pxbx=0302) [facility] [address] [id number] 07:30:00 Test Item Value Reference Range Comments PHOSPHORUS (BEAKER) (test rryg=054) 4.1 mg/dL 2.3-4.7 [id number] 07:30:00 Test Item Value Reference Range Comments MAGNESIUM (BEAKER) (test cexf=007) 1.6 mg/dL 1.6-2.6 BASIC METABOLIC [id number] 07:30:00 Test Item Value Reference Range Comments SODIUM (BEAKER) (test 138 meq/L 136-145 vfmy=599) POTASSIUM (BEAKER) (test 4.5 meq/L 3.5-5.1 oziw=575) CHLORIDE (BEAKER) (test 106 meq/L 98-107 hyvp=816) CO2 (BEAKER) (test 23 meq/L 22-29 xkmk=058) BLOOD UREA NITROGEN 12 mg/dL 7-21 (BEAKER) (test maav=172) CREATININE (BEAKER) (test 1.05 mg/dL 0.57-1.25 ikmz=081) GLUCOSE RANDOM (BEAKER) 105 mg/dL 70-105 (test ldac=808) CALCIUM (BEAKER) (test 9.3 mg/dL 8.4-10.2 yvfg=381) EGFR (BEAKER) (test 53 mL/min/1.73 sq m ESTIMATED GFR IS NOT edxd=8032) ACCURATE CREATININE CLEARANCE IN PREDICTING GLOMERULAR FILTRATION RATE. ESTIMATED GFR IS NOT APPLICABLE FOR DIALYSIS PATIENTS. [id number] 06:50:00 Test Item Value Reference Range Comments PARTIAL THROMBOPLASTIN TIME (BEAKER) (test 30.7 seconds 22.5-36.0 mgqb=962) PROTHROMBIN TIME/[id number] 06:49:00 Test Item Value Reference Range Comments PROTIME (BEAKER) (test kque=966) 13.2 seconds 11.7-14.7 INR (BEAKER) (test hfjx=669) 1.0 <=5.9 RECOMMENDED COUMADIN/WARFARIN INR THERAPY RANGESSTANDARD DOSE: 2.0 - 3.0 Includes: PROPHYLAXIS forvenous thrombosis, systemic embolization; TREATMENT for venous thrombosis and/or pulmonary embolus.HIGH RISK: Target INR is 2.5-3.5 for patients with mechanical heart valves.CBC (HEMOGRAM ONLY)2017-08-05 06:36:00 Test Item Value Reference Range Comments WHITE BLOOD CELL COUNT (BEAKER) (test iboc=301) 5.5 K/ L 3.5-10.5 RED BLOOD CELL COUNT (BEAKER) (test hnrq=193) 3.13 M/ L 3.93-5.22 HEMOGLOBIN (BEAKER) (test bqgv=476) 9.1 GM/DL 11.2-15.7 HEMATOCRIT (BEAKER) (test kxnq=000) 30.2 % 34.1-44.9 MEAN CORPUSCULAR VOLUME (BEAKER) (test vuoj=667) 96.5 fL 79.4-94.8 MEAN CORPUSCULAR HEMOGLOBIN (BEAKER) (test 29.1 pg 25.6-32.2 gbrc=246) MEAN CORPUSCULAR HEMOGLOBIN CONC (BEAKER) (test 30.1 GM/DL 32.2-35.5 hfkg=096) RED CELL DISTRIBUTION WIDTH (BEAKER) (test 17.2 % 11.7-14.4 vbps=423) PLATELET COUNT (BEAKER) (test ylcy=901) 186 K/CU MM 150-450 MEAN PLATELET VOLUME (BEAKER) (test kmyq=436) 12.0 fL 9.4-12.3 NUCLEATED RED BLOOD CELLS (BEAKER) (test 0 /100 WBC 0-0 sagd=619) POCT-GLUCOSE [id number] 18:25:00 Test Item Value Reference Range Comments POC-GLUCOSE METER (BEAKER) 123 mg/dL 70-110 TESTED AT [facility] [address] [facility] (test cwsu=0401) [facility] [address] POCT-GLUCOSE [id number] 13:07:00 Test Item Value Reference Range Comments POC-GLUCOSE METER (BEAKER) 154 mg/dL 70-110 TESTED AT [place] [id number] [facility] (test olpk=6084) [facility] [address] RAD, CHEST, 1 VIEW, NON [id number] 08:22:00Reason for exam:->s/p TEVAR with linesShould this be performed at the bedside?->YesFINAL REPORT Chest one view compared to August 03 Discussion: Right PICC line and descending thoracic aorta after noted. Lungs clear. Heart size normal. No effusion or pneumothorax. Signed: Tad Frosteport Verified Date/Time: 08/04/2017 08:22:31 Reading Location: [address] Neuro Reading Room POCT- GLUCOSE [id number] 07:54:00 Test Item Value Reference Range Comments POC-GLUCOSE METER (BEAKER) 113 mg/dL 70-110 TESTED AT [facility] [address] [facility] (test hrqa=4531) [facility] [address] [id number] 06:16:00 Test Item Value Reference Range Comments PHOSPHORUS (BEAKER) (test tgin=707) 3.8 mg/dL 2.3-4.7 [id number] 06:16:00 Test Item Value Reference Range Comments MAGNESIUM (BEAKER) (test ekln=756) 1.7 mg/dL 1.6-2.6 BASIC METABOLIC [id number] 06:16:00 Test Item Value Reference Range Comments SODIUM (BEAKER) (test 137 meq/L 136-145 dbel=266) POTASSIUM (BEAKER) (test 4.4 meq/L 3.5-5.1 fgop=038) CHLORIDE (BEAKER) (test 106 meq/L 98-107 rmbv=352) CO2 (BEAKER) (test 23 meq/L 22-29 otvn=918) BLOOD UREA NITROGEN 12 mg/dL 7-21 (BEAKER) (test dmls=874) CREATININE (BEAKER) (test 0.90 mg/dL 0.57-1.25 epxe=150) GLUCOSE RANDOM (BEAKER) 99 mg/dL 70-105 (test cxnu=961) CALCIUM (BEAKER) (test 9.3 mg/dL 8.4-10.2 dnrc=602) EGFR (BEAKER) (test 63 mL/min/1.73 sq m ESTIMATED GFR IS NOT autg=5261) ACCURATE CREATININE CLEARANCE IN PREDICTING GLOMERULAR FILTRATION RATE. ESTIMATED GFR IS NOT APPLICABLE FOR DIALYSIS PATIENTS. [id number] 05:49:00 Test Item Value Reference Range Comments PARTIAL THROMBOPLASTIN TIME (BEAKER) (test 31.2 seconds 22.5-36.0 cxex=725) PROTHROMBIN TIME/[id number] 05:48:00 Test Item Value Reference Range Comments PROTIME (BEAKER) (test ajui=983) 13.8 seconds 11.7-14.7 INR (BEAKER) (test cneo=670) 1.1 <=5.9 RECOMMENDED COUMADIN/WARFARIN INR THERAPY RANGESSTANDARD DOSE: 2.0 - 3.0 Includes: PROPHYLAXIS forvenous thrombosis, systemic embolization; TREATMENT for venous thrombosis and/or pulmonary embolus.HIGH RISK: Target INR is 2.5-3.5 for patients with mechanical heart valves.CBC (HEMOGRAM ONLY)2017-08-04 05:23:00 Test Item Value Reference Range Comments WHITE BLOOD CELL COUNT (BEAKER) (test nzzy=385) 4.7 K/ L 3.5-10.5 RED BLOOD CELL COUNT (BEAKER) (test nlxc=616) 3.05 M/ L 3.93-5.22 HEMOGLOBIN (BEAKER) (test abyd=006) 9.0 GM/DL 11.2-15.7 HEMATOCRIT (BEAKER) (test fcxe=285) 29.2 % 34.1-44.9 MEAN CORPUSCULAR VOLUME (BEAKER) (test lqdd=342) 95.7 fL 79.4-94.8 MEAN CORPUSCULAR HEMOGLOBIN (BEAKER) (test 29.5 pg 25.6-32.2 lkdq=032) MEAN CORPUSCULAR HEMOGLOBIN CONC (BEAKER) (test 30.8 GM/DL 32.2-35.5 vtcm=893) RED CELL DISTRIBUTION WIDTH (BEAKER) (test 16.9 % 11.7-14.4 muns=676) PLATELET COUNT (BEAKER) (test nfwz=093) 182 K/CU MM 150-450 MEAN PLATELET VOLUME (BEAKER) (test uoir=916) 11.9 fL 9.4-12.3 NUCLEATED RED BLOOD CELLS (BEAKER) (test 0 /100 WBC 0-0 jdvn=664) BLOOD [id number] 23:00:00 Test Item Value Reference Range Comments CULTURE (BEAKER) (test zycr=8770) No growth in 5 days BLOOD [id number] 23:00:00 Test Item Value Reference Range Comments CULTURE (BEAKER) (test yfvi=7063) No growth in 5 days POCT-GLUCOSE [id number] 21:48:00 Test Item Value Reference Range Comments POC-GLUCOSE METER (BEAKER) 131 mg/dL 70-110 TESTED AT [address] (test yctz=1998) [facility] [address] POCT-GLUCOSE [id number] 18:12:00 Test Item Value Reference Range Comments POC-GLUCOSE METER (BEAKER) 106 mg/dL 70-110 TESTED AT [address] (test ivid=1784) [facility] [address] BLOOD [id number] 10:00:00 Test Item Value Reference Range Comments CULTURE (BEAKER) (test cvjo=5337) No growth in 5 days RAD, CHEST, 1 VIEW, NON [id number] 08:58:00Reason for exam:->s/p TEVAR with linesShould this be performed at the bedside?->YesFINAL REPORT Chest one view compared to August 02 Discussion: Descending aortic grafts and right-sided PICC line are again noted. Lungs clear. No effusion or pneumothorax. Signed: Tad Frost Verified Date/Time: 04/2017 08:58:38 Reading Location: [address] Reading Room POCT- GLUCOSE [id number] 08:18:00 Test Item Value Reference Range Comments POC-GLUCOSE METER (BEAKER) 144 mg/dL 70-110 TESTED AT [address] (test fvhu=6701) [facility] [address] [id number] 05:30:00 Test Item Value Reference Range Comments PHOSPHORUS (BEAKER) (test zcsc=946) 4.0 mg/dL 2.3-4.7 [id number] 05:30:00 Test Item Value Reference Range Comments MAGNESIUM (BEAKER) (test povr=099) 1.9 mg/dL 1.6-2.6 BASIC METABOLIC [id number] 05:30:00 Test Item Value Reference Range Comments SODIUM (BEAKER) (test 140 meq/L 136-145 qlfy=988) POTASSIUM (BEAKER) (test 4.3 meq/L 3.5-5.1 gdah=019) CHLORIDE (BEAKER) (test 108 meq/L 98-107 sfvl=827) CO2 (BEAKER) (test 23 meq/L 22-29 fhvg=817) BLOOD UREA NITROGEN 13 mg/dL 7-21 (BEAKER) (test tepb=371) CREATININE (BEAKER) (test 0.91 mg/dL 0.57-1.25 pcfc=285) GLUCOSE RANDOM (BEAKER) 117 mg/dL 70-105 (test ctzm=921) CALCIUM (BEAKER) (test 9.4 mg/dL 8.4-10.2 izcs=681) EGFR (BEAKER) (test 63 mL/min/1.73 sq m ESTIMATED GFR IS NOT axiv=7169) ACCURATE CREATININE CLEARANCE IN PREDICTING GLOMERULAR FILTRATION RATE. ESTIMATED GFR IS NOT APPLICABLE FOR DIALYSIS PATIENTS. [id number] 05:02:00 Test Item Value Reference Range Comments PARTIAL THROMBOPLASTIN TIME (BEAKER) (test 32.3 seconds 22.5-36.0 dnsz=340) CBC (HEMOGRAM ONLY)2017-08-03 05:01:00 Test Item Value Reference Range Comments WHITE BLOOD CELL COUNT (BEAKER) (test dakp=022) 5.0 K/ L 3.5-10.5 RED BLOOD CELL COUNT (BEAKER) (test raqd=619) 3.13 M/ L 3.93-5.22 HEMOGLOBIN (BEAKER) (test wctb=193) 9.3 GM/DL 11.2-15.7 HEMATOCRIT (BEAKER) (test dhjb=609) 29.9 % 34.1-44.9 MEAN CORPUSCULAR VOLUME (BEAKER) (test wupv=890) 95.5 fL 79.4-94.8 MEAN CORPUSCULAR HEMOGLOBIN (BEAKER) (test 29.7 pg 25.6-32.2 gfws=550) MEAN CORPUSCULAR HEMOGLOBIN CONC (BEAKER) (test 31.1 GM/DL 32.2-35.5 aoam=480) RED CELL DISTRIBUTION WIDTH (BEAKER) (test 16.8 % 11.7-14.4 puyc=903) PLATELET COUNT (BEAKER) (test yraa=434) 195 K/CU MM 150-450 MEAN PLATELET VOLUME (BEAKER) (test ijdi=552) 12.1 fL 9.4-12.3 NUCLEATED RED BLOOD CELLS (BEAKER) (test 0 /100 WBC 0-0 atsg=577) PROTHROMBIN TIME/[id number] 05:01:00 Test Item Value Reference Range Comments PROTIME (BEAKER) (test vmfn=239) 13.8 seconds 11.7-14.7 INR (BEAKER) (test ifxq=565) 1.1 <=5.9 RECOMMENDED COUMADIN/WARFARIN INR THERAPY RANGESSTANDARD DOSE: 2.0 - 3.0 Includes: PROPHYLAXIS forvenous thrombosis, systemic embolization; TREATMENT for venous thrombosis and/or pulmonary embolus.HIGH RISK: Target INR is 2.5-3.5 for patients with mechanical heart valves.POCT-GLUCOSE [id number] 21:22:00 Test Item Value Reference Range Comments POC-GLUCOSE METER (BEAKER) 138 mg/dL 70-110 TESTED AT [address] (test onpu=6019) [place] [address] POCT-GLUCOSE [id number] 18:28:00 Test Item Value Reference Range Comments POC-GLUCOSE METER (BEAKER) 160 mg/dL 70-110 TESTED AT [address] (test ecqi=7290) [place] [id number] POCT-GLUCOSE [id number] 12:23:00 Test Item Value Reference Range Comments POC-GLUCOSE METER (BEAKER) 141 mg/dL 70-110 TESTED AT [address] (test nazs=6605) [place] [address] RAD, CHEST, 1 VIEW, NON [id number] 11:08:00Reason for exam:->post picc line insertionShould this be performed at the bedside?->YesFINAL REPORT TECHNIQUE: Frontal chest radiograph dated 08/02/2017. CLINICAL HISTORY: Post PICC COMPARISON STUDY: Chest radiograph performed earlier the same day. IMPRESSION:There has been interval placement of a right- sided PICC with the tip in the region of the superior vena cava near the level of the bhavana. Right internal jugular venous catheter is unchanged. Stable linear atelectasis in the lung bases. No pleural effusion or pneumothorax. Cardiomediastinal silhouette is stable in size. An endovascular graft is seen in the descending thoracic aorta. No pulmonary edema. Nofracture. Signed: Tj Simpson MDReport Verified Date/Time: 08/02/2017 11:08:46 Reading Location: [facility] Radiology Reading Room BLOOD [id number] 11:00:00 Test Item Value Reference Range Comments CULTURE (BEAKER) From Anaerobic Bottle Only (test gzoq=6501) Same organism has been isolated from cultures(s) of the same body site within 3 days. Repeat identification and susceptibility testing performed only after consultation with the clinical microbiology laboratory.Refer to previous culture ofCoagulase negative Staphylococcus GRAM STAIN RESULT From anaerobic bottle (BEAKER) (test only: gram positive exjf=9270) cocci in clusters BLOOD [id number] 10:00:00 Test Item Value Reference Range Comments CULTURE (BEAKER) (test kjtu=3176) No growth in 5 days RAD, CHEST, 1 VIEW, NON [id number] 09:02:00Reason for exam:->s/p TEVAR with linesShould this be performed at the bedside?->YesFINAL REPORT Chest one view INDICATION: TEVAR COMPARISON: 08/01/2017 IMPRESSION : A right jugular line is again noted. The cardiomediastinal contours are stable. Aortic stent graftis in place. There is stable pulmonary vascular congestion. Bibasilar opacities suggest atelectasis.Pneumonitis should be excluded clinically. There is stable right costophrenic angle blunting. No pneumothorax is seen. Signed: Mal Avalos MDReport Verified Date/Time: 08/02/2017 09:02:13 Reading Location: [facility] Radiology Reading Room POCT- GLUCOSE [id number] 08:54:00 Test Item Value Reference Range Comments POC-GLUCOSE METER (BEAKER) 129 mg/dL 70-110 TESTED AT [facility] [address] [place] [address] (test pvfz=9373) [facility] [address] [id number] 06:06:00 Test Item Value Reference Range Comments PHOSPHORUS (BEAKER) (test hrib=511) 3.4 mg/dL 2.3-4.7 [id number] 06:06:00 Test Item Value Reference Range Comments MAGNESIUM (BEAKER) (test hohv=195) 1.4 mg/dL 1.6-2.6 BASIC METABOLIC [id number] 06:06:00 Test Item Value Reference Range Comments SODIUM (BEAKER) (test 137 meq/L 136-145 jfmz=797) POTASSIUM (BEAKER) (test 4.2 meq/L 3.5-5.1 lsyy=714) CHLORIDE (BEAKER) (test 106 meq/L 98-107 wiul=985) CO2 (BEAKER) (test 24 meq/L 22-29 eybg=136) BLOOD UREA NITROGEN 17 mg/dL 7-21 (BEAKER) (test tjwm=684) CREATININE (BEAKER) (test 0.91 mg/dL 0.57-1.25 kmgn=075) GLUCOSE RANDOM (BEAKER) 123 mg/dL 70-105 (test waek=184) CALCIUM (BEAKER) (test 9.2 mg/dL 8.4-10.2 ezwt=557) EGFR (BEAKER) (test 63 mL/min/1.73 sq m ESTIMATED GFR IS NOT xqso=9815) ACCURATE CREATININE CLEARANCE IN PREDICTING GLOMERULAR FILTRATION RATE. ESTIMATED GFR IS NOT APPLICABLE FOR DIALYSIS PATIENTS. PROTHROMBIN TIME/[id number] 05:23:00 Test Item Value Reference Range Comments PROTIME (BEAKER) (test awyk=986) 13.2 seconds 11.7-14.7 INR (BEAKER) (test emka=165) 1.0 <=5.9 RECOMMENDED COUMADIN/WARFARIN INR THERAPY RANGESSTANDARD DOSE: 2.0 - 3.0 Includes: PROPHYLAXIS forvenous thrombosis, systemic embolization; TREATMENT for venous thrombosis and/or pulmonary embolus.HIGH RISK: Target INR is 2.5-3.5 for patients with mechanical heart valves.[id number] 05:23:00 Test Item Value Reference Range Comments PARTIAL THROMBOPLASTIN TIME (BEAKER) (test 29.1 seconds 22.5-36.0 divt=032) CBC (HEMOGRAM ONLY)2017-08-02 05:16:00 Test Item Value Reference Range Comments WHITE BLOOD CELL COUNT (BEAKER) (test zhwi=623) 4.8 K/ L 3.5-10.5 RED BLOOD CELL COUNT (BEAKER) (test zzjw=241) 3.22 M/ L 3.93-5.22 HEMOGLOBIN (BEAKER) (test lgkb=691) 9.4 GM/DL 11.2-15.7 HEMATOCRIT (BEAKER) (test eeii=145) 30.6 % 34.1-44.9 MEAN CORPUSCULAR VOLUME (BEAKER) (test xzsl=047) 95.0 fL 79.4-94.8 MEAN CORPUSCULAR HEMOGLOBIN (BEAKER) (test 29.2 pg 25.6-32.2 cjzq=208) MEAN CORPUSCULAR HEMOGLOBIN CONC (BEAKER) (test 30.7 GM/DL 32.2-35.5 yoio=317) RED CELL DISTRIBUTION WIDTH (BEAKER) (test 16.6 % 11.7-14.4 lsus=265) PLATELET COUNT (BEAKER) (test qucg=317) 197 K/CU MM 150-450 MEAN PLATELET VOLUME (BEAKER) (test bqwp=053) 12.1 fL 9.4-12.3 NUCLEATED RED BLOOD CELLS (BEAKER) (test 0 /100 WBC 0-0 dcio=797) POCT-GLUCOSE [id number] 21:07:00 Test Item Value Reference Range Comments POC-GLUCOSE METER (BEAKER) 165 mg/dL 70-110 TESTED AT [address] (test fsfw=6164) [facility] [address] VANCOMYCIN LEVEL, [id number] 20:31:00 Test Item Value Reference Range Comments VANCOMYCIN TROUGH (BEAKER) (test dnpo=007) 12.2 ug/mL 10.0-20.0 POCT-GLUCOSE [id number] 17:41:00 Test Item Value Reference Range Comments POC-GLUCOSE METER (BEAKER) 141 mg/dL 70-110 TESTED AT [address] (test zjsz=3488) [facility] [address] POCT-GLUCOSE [id number] 12:07:00 Test Item Value Reference Range Comments POC-GLUCOSE METER (BEAKER) 217 mg/dL 70-110 TESTED AT [address] (test qkwz=8349) [facility] [address] RAD, CHEST, 1 VIEW, NON [id number] 09:13:00Reason for exam:->s/p TEVAR with linesShould this be performed at the bedside?->YesFINAL REPORT Chest one view INDICATION: TEVAR with lines COMPARISON: 2016 IMPRESSION: A right jugular line is again noted. The cardiac mediastinal contours are stable. Aortic stent graft is in place. There is pulmonary vascular congestion. Stable bibasilar opacities suggestatelectasis. Pneumonitis should be excluded clinically. A small right pleural effusion is suspected.No pneumothorax is seen. Signed: Mal Avalos Verified Date/Time: 08/01/2017 09:13:59 Reading Location: [facility] Radiology Reading Room POCT- GLUCOSE [id number] 08:36:00 Test Item Value Reference Range Comments POC-GLUCOSE METER (BEAKER) 158 mg/dL 70-110 TESTED AT [facility] [address] (test xnnp=9344) [facility] [address] PROTHROMBIN TIME/[id number] 07:04:00 Test Item Value Reference Range Comments PROTIME (BEAKER) (test valj=936) 13.5 seconds 11.7-14.7 INR (BEAKER) (test gifa=683) 1.0 <=5.9 RECOMMENDED COUMADIN/WARFARIN INR THERAPY RANGESSTANDARD DOSE: 2.0 - 3.0 Includes: PROPHYLAXIS forvenous thrombosis, systemic embolization; TREATMENT for venous thrombosis and/or pulmonary embolus.HIGH RISK: Target INR is 2.5-3.5 for patients with mechanical heart valves.[id number] 07:04:00 Test Item Value Reference Range Comments PARTIAL THROMBOPLASTIN TIME (BEAKER) (test 31.3 seconds 22.5-36.0 vsny=656) [id number] 05:38:00 Test Item Value Reference Range Comments PHOSPHORUS (BEAKER) (test hehy=408) 3.2 mg/dL 2.3-4.7 [id number] 05:38:00 Test Item Value Reference Range Comments MAGNESIUM (BEAKER) (test jjhq=291) 1.8 mg/dL 1.6-2.6 BASIC METABOLIC [id number] 05:38:00 Test Item Value Reference Range Comments SODIUM (BEAKER) (test 140 meq/L 136-145 tcbg=493) POTASSIUM (BEAKER) (test 4.0 meq/L 3.5-5.1 zbtj=436) CHLORIDE (BEAKER) (test 106 meq/L 98-107 yaky=681) CO2 (BEAKER) (test 24 meq/L 22-29 jakd=778) BLOOD UREA NITROGEN 21 mg/dL 7-21 (BEAKER) (test ebvn=123) CREATININE (BEAKER) (test 0.95 mg/dL 0.57-1.25 ulrz=957) GLUCOSE RANDOM (BEAKER) 127 mg/dL 70-105 (test ipnh=974) CALCIUM (BEAKER) (test 9.2 mg/dL 8.4-10.2 oqru=609) EGFR (BEAKER) (test 60 mL/min/1.73 sq m ESTIMATED GFR IS NOT pgvu=5617) ACCURATE CREATININE CLEARANCE IN PREDICTING GLOMERULAR FILTRATION RATE. ESTIMATED GFR IS NOT APPLICABLE FOR DIALYSIS PATIENTS. CBC (HEMOGRAM ONLY)2017-08-01 05:02:00 Test Item Value Reference Range Comments WHITE BLOOD CELL COUNT (BEAKER) (test vxds=017) 5.5 K/ L 3.5-10.5 RED BLOOD CELL COUNT (BEAKER) (test exsq=007) 3.37 M/ L 3.93-5.22 HEMOGLOBIN (BEAKER) (test eskn=084) 9.9 GM/DL 11.2-15.7 HEMATOCRIT (BEAKER) (test swzl=776) 31.9 % 34.1-44.9 MEAN CORPUSCULAR VOLUME (BEAKER) (test frzv=434) 94.7 fL 79.4-94.8 MEAN CORPUSCULAR HEMOGLOBIN (BEAKER) (test 29.4 pg 25.6-32.2 uziy=088) MEAN CORPUSCULAR HEMOGLOBIN CONC (BEAKER) (test 31.0 GM/DL 32.2-35.5 jdwu=844) RED CELL DISTRIBUTION WIDTH (BEAKER) (test 16.3 % 11.7-14.4 mchv=130) PLATELET COUNT (BEAKER) (test rlvv=731) 199 K/CU MM 150-450 MEAN PLATELET VOLUME (BEAKER) (test eicn=670) 12.5 fL 9.4-12.3 NUCLEATED RED BLOOD CELLS (BEAKER) (test 0 /100 WBC 0-0 cpxa=884) BLOOD [id number] 23:00:00 Test Item Value Reference Range Comments CULTURE (BEAKER) (test cggh=7453) No growth in 5 days POCT-GLUCOSE [id number] 20:45:00 Test Item Value Reference Range Comments POC-GLUCOSE METER (BEAKER) 160 mg/dL 70-110 TESTED AT [address] (test xjpo=5147) [facility] [address] POCT-GLUCOSE [id number] 17:17:00 Test Item Value Reference Range Comments POC-GLUCOSE METER (BEAKER) 165 mg/dL 70-110 TESTED AT [address] (test hvvx=2989) [place] [address] RAD, CHEST, 1 VIEW, NON [id number] 13:48:00Reason for exam:->s/p TEVAR with linesShould this be performed at the bedside?->YesFINAL REPORT Chest one view. Clinical history: s/p TEVAR with lines Comparison: 07/30/2017 Discussion: A frontal chest is provided. Cardiomediastinal contours are unchanged. Right IJ line is in stable position. Feeding tube has been removed. Again noted is a stent graft in thedistal thoracic aorta. There is mild bibasilar atelectasis. No pneumothorax, or significant effusion. Signed: Eleazar Shepard Verified Date/Time: 2016 13:48:33 Reading Location: [facility] C0W Consult Reading Room POCT-GLUCOSE [id number] 11:51:00 Test Item Value Reference Range Comments POC-GLUCOSE METER (BEAKER) 139 mg/dL 70-110 TESTED AT [place] [id number] (test nxrd=9469) [facility] [address] POCT-GLUCOSE [id number] 09:01:00 Test Item Value Reference Range Comments POC-GLUCOSE METER (BEAKER) 152 mg/dL 70-110 TESTED AT [facility] [address] (test snmj=3643) [facility] [address] [id number] 05:29:00 Test Item Value Reference Range Comments PHOSPHORUS (BEAKER) (test mhpn=431) 3.8 mg/dL 2.3-4.7 [id number] 05:29:00 Test Item Value Reference Range Comments MAGNESIUM (BEAKER) (test pwtc=266) 1.9 mg/dL 1.6-2.6 BASIC METABOLIC [id number] 05:29:00 Test Item Value Reference Range Comments SODIUM (BEAKER) (test 139 meq/L 136-145 loxg=896) POTASSIUM (BEAKER) (test 3.8 meq/L 3.5-5.1 fgip=620) CHLORIDE (BEAKER) (test 107 meq/L 98-107 gwfu=386) CO2 (BEAKER) (test 25 meq/L 22-29 gyub=138) BLOOD UREA NITROGEN 22 mg/dL 7-21 (BEAKER) (test nrfn=430) CREATININE (BEAKER) (test 0.86 mg/dL 0.57-1.25 hfyb=374) GLUCOSE RANDOM (BEAKER) 117 mg/dL 70-105 (test kqiw=369) CALCIUM (BEAKER) (test 9.2 mg/dL 8.4-10.2 rhtq=728) EGFR (BEAKER) (test 67 mL/min/1.73 sq m ESTIMATED GFR IS NOT osyi=4788) ACCURATE CREATININE CLEARANCE IN PREDICTING GLOMERULAR FILTRATION RATE. ESTIMATED GFR IS NOT APPLICABLE FOR DIALYSIS PATIENTS. [id number] 05:18:00 Test Item Value Reference Range Comments PARTIAL THROMBOPLASTIN TIME (BEAKER) (test 29.9 seconds 22.5-36.0 ochw=167) PROTHROMBIN TIME/[id number] 05:17:00 Test Item Value Reference Range Comments PROTIME (BEAKER) (test ance=575) 13.4 seconds 11.7-14.7 INR (BEAKER) (test pyau=772) 1.0 <=5.9 RECOMMENDED COUMADIN/WARFARIN INR THERAPY RANGESSTANDARD DOSE: 2.0 - 3.0 Includes: PROPHYLAXIS forvenous thrombosis, systemic embolization; TREATMENT for venous thrombosis and/or pulmonary embolus.HIGH RISK: Target INR is 2.5-3.5 for patients with mechanical heart valves.CBC (HEMOGRAM ONLY)2017-07-31 05:02:00 Test Item Value Reference Range Comments WHITE BLOOD CELL COUNT (BEAKER) (test ifir=608) 5.5 K/ L 3.5-10.5 RED BLOOD CELL COUNT (BEAKER) (test mabz=164) 3.35 M/ L 3.93-5.22 HEMOGLOBIN (BEAKER) (test lpvy=063) 9.8 GM/DL 11.2-15.7 HEMATOCRIT (BEAKER) (test tnfp=581) 31.7 % 34.1-44.9 MEAN CORPUSCULAR VOLUME (BEAKER) (test mdvr=741) 94.6 fL 79.4-94.8 MEAN CORPUSCULAR HEMOGLOBIN (BEAKER) (test 29.3 pg 25.6-32.2 tvhe=461) MEAN CORPUSCULAR HEMOGLOBIN CONC (BEAKER) (test 30.9 GM/DL 32.2-35.5 yerg=307) RED CELL DISTRIBUTION WIDTH (BEAKER) (test 16.3 % 11.7-14.4 phgs=388) PLATELET COUNT (BEAKER) (test qqno=267) 206 K/CU MM 150-450 MEAN PLATELET VOLUME (BEAKER) (test lxpg=895) 12.3 fL 9.4-12.3 NUCLEATED RED BLOOD CELLS (BEAKER) (test 0 /100 WBC 0-0 tkuo=794) POCT-GLUCOSE [id number] 20:45:00 Test Item Value Reference Range Comments POC-GLUCOSE METER (BEAKER) 110 mg/dL 70-110 TESTED AT [facility] [address] [facility] (test ilax=6612) [facility] [address] POCT-GLUCOSE [id number] 18:38:00 Test Item Value Reference Range Comments POC-GLUCOSE METER (BEAKER) 126 mg/dL 70-110 TESTED AT [facility] [address] [place] [address] (test hbas=7385) [facility] [address] FL, ESOPH, SWALLOW FUNCTION, WITH CINE OR [id number] 14:35:00Reason for exam:->AspirationFINAL REPORT Modified barium swallow with speech pathology [...] pathology report for further details. Signed: Rayo Whitt Verified Date/ Time: 07/30/2017 14:35:49 Reading Location: [address] Ortho Consult Reading Room POCT -GLUCOSE [id number] 12:14:00 Test Item Value Reference Range Comments POC-GLUCOSE METER (BEAKER) 172 mg/dL 70-110 TESTED AT [address] (test feav=4122) [facility] [address] MISCELLANEOUS LAB [id number] 11:23:00 Test Item Value Reference Range Comments SCAN RESULT (test qxjb=[id number]) Result comments: Coagulase Negative Staphylococcus Species (CoNS) [...] required. This sample was tested at the [facility] Clinical Microbiology Laboratory using the [employer] Blood Culture ID Panel. This test is FDA cleared for in vitro diagnostic use and has been verified and approved by the [facility] Clinical Microbiology laboratory for clinical use. Reference Range: Not DetectedRAD, CHEST, 1 VIEW, NON [id number] 05:19:00Reason for exam:->s/p TEVAR with linesShould this be performed at the bedside?->YesFINAL REPORT Comparison exam: 2016 Mild right basilar atelectasis unchanged. No pneumothorax. Normal cardiomediastinal contours. Right IJ line terminates in the right atrium. NG tube extends into the abdomen. Signed: Elliot Beyeport Verified Date /Time: 07/30/2017 05:19:21 Reading Location: [address] Ortho Consult Reading Room 05 :19 [id number] 04:50:00 Test Item Value Reference Range Comments PHOSPHORUS (BEAKER) (test ygwl=631) 3.3 mg/dL 2.3-4.7 [id number] 04:50:00 Test Item Value Reference Range Comments MAGNESIUM (BEAKER) (test ovci=116) 1.9 mg/dL 1.6-2.6 BASIC METABOLIC [id number] 04:50:00 Test Item Value Reference Range Comments SODIUM (BEAKER) (test 140 meq/L 136-145 eopa=006) POTASSIUM (BEAKER) (test 3.9 meq/L 3.5-5.1 xwqw=815) CHLORIDE (BEAKER) (test 106 meq/L 98-107 wrqo=090) CO2 (BEAKER) (test 26 meq/L 22-29 pmfa=184) BLOOD UREA NITROGEN 30 mg/dL 7-21 (BEAKER) (test mbra=119) CREATININE (BEAKER) (test 0.91 mg/dL 0.57-1.25 hock=557) GLUCOSE RANDOM (BEAKER) 150 mg/dL 70-105 (test asjt=783) CALCIUM (BEAKER) (test 9.0 mg/dL 8.4-10.2 glpz=112) EGFR (BEAKER) (test 63 mL/min/1.73 sq m ESTIMATED GFR IS NOT czox=1243) ACCURATE CREATININE CLEARANCE IN PREDICTING GLOMERULAR FILTRATION RATE. ESTIMATED GFR IS NOT APPLICABLE FOR DIALYSIS PATIENTS. [id number] 04:37:00 Test Item Value Reference Range Comments PARTIAL THROMBOPLASTIN TIME (BEAKER) (test 28.1 seconds 22.5-36.0 zqig=059) PROTHROMBIN [id number] 04:36:00 Test Item Value Reference Range Comments PROTIME (BEAKER) (test frvu=296) 13.1 seconds 11.7-14.7 INR (BEAKER) (test scdt=607) 1.0 <=5.9 RECOMMENDED COUMADIN/WARFARIN INR THERAPY RANGESSTANDARD DOSE: 2.0 - 3.0 Includes: PROPHYLAXIS forvenous thrombosis, systemic embolization; TREATMENT for venous thrombosis and/or pulmonary embolus.HIGH RISK: Target INR is 2.5-3.5 for patients with mechanical heart valves.CBC (HEMOGRAM ONLY)2017-07-30 04:29:00 Test Item Value Reference Range Comments WHITE BLOOD CELL COUNT (BEAKER) (test lstq=941) 5.9 K/ L 3.5-10.5 RED BLOOD CELL COUNT (BEAKER) (test ftfm=749) 3.26 M/ L 3.93-5.22 HEMOGLOBIN (BEAKER) (test vyyn=024) 9.5 GM/DL 11.2-15.7 HEMATOCRIT (BEAKER) (test ilxm=068) 30.6 % 34.1-44.9 MEAN CORPUSCULAR VOLUME (BEAKER) (test eays=392) 93.9 fL 79.4-94.8 MEAN CORPUSCULAR HEMOGLOBIN (BEAKER) (test 29.1 pg 25.6-32.2 nalc=190) MEAN CORPUSCULAR HEMOGLOBIN CONC (BEAKER) (test 31.0 GM/DL 32.2-35.5 iiag=639) RED CELL DISTRIBUTION WIDTH (BEAKER) (test 15.9 % 11.7-14.4 qzkm=992) PLATELET COUNT (BEAKER) (test zogm=680) 202 K/CU MM 150-450 MEAN PLATELET VOLUME (BEAKER) (test xxqt=417) 11.8 fL 9.4-12.3 NUCLEATED RED BLOOD CELLS (BEAKER) (test 0 /100 WBC 0-0 tzfq=977) POCT-GLUCOSE [id number] 00:24:00 Test Item Value Reference Range Comments POC-GLUCOSE METER (BEAKER) 151 mg/dL 70-110 TESTED AT [address] (test qtvo=6086) [place] [address] VANCOMYCIN LEVEL, [id number] 21:58:00 Test Item Value Reference Range Comments VANCOMYCIN TROUGH (BEAKER) (test qqjn=164) 19.2 ug/mL 10.0-20.0 Please draw before administering night time vancomycin dosePOCT-GLUCOSE [id number] 18:28:00 Test Item Value Reference Range Comments POC-GLUCOSE METER (BEAKER) 170 mg/dL 70-110 TESTED AT [address] (test dzca=6407) [place] [address] BLOOD [id number] 16:18:00 Test Item Value Reference Range Comments CULTURE (BEAKER) (test rgnl=0475) Clindamycin (test code=10) Erythromycin (test code=4) Levofloxacin (test code=22) Linezolid (test code=40) Oxacillin (test code=14) Rifampin (test code=43) Tetracycline (test code=2) Trimethoprim + Sulfamethoxazole (test code=47) Vancomycin (test code=13) CULTURE (BEAKER) (test From Aerobic And royh=5932) Anaerobic Bottles Coagulase negative Staphylococcus GRAM STAIN RESULT (BEAKER) From aerobic and (test oive=7345) anaerobic bottles: gram positive cocci in clusters 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 Other organisms and resistance markers not contained in this PCR panel cannot be excluded and follow-up of traditional culture results is required. This sample was tested at the [facility] Clinical Microbiology Laboratory using the [employer] Blood Culture ID Panel.This test is FDA cleared for in vitro diagnostic use and has been verified and [facility]. Reference Range: Not DetectedPOCT-GLUCOSE [id number] 13:00:00 Test Item Value Reference Range Comments POC-GLUCOSE METER (BEAKER) 153 mg/dL 70-110 TESTED AT [facility] [address] [facility] (test bynx=2099) [facility] [address] RAD, ABDOMEN/KUB, 1 VIEW [id number] 09:40:00Reason for exam:->reposition of NGTShould this be performed at the bedside?->YesFINAL REPORT Abdomen one view Comparison: July 22, 2017 Reason for exam: reposition of NGT Findings: Feeding tube projects over the expected location of distal gastric body.Gas pattern appears nonspecific. Signed: Eleazar Shepard Verified Date/Time: 07/29/2017 09:40:24 Reading Location: [facility] Radiology Reading Room Electronically signed by: ELEAZAR SHEPARD M.D. on 07/29 09:40 [id number] 05:06:00 Test Item Value Reference Range Comments PHOSPHORUS (BEAKER) (test uurl=372) 3.4 mg/dL 2.3-4.7 [id number] 05:06:00 Test Item Value Reference Range Comments MAGNESIUM (BEAKER) (test vymh=470) 2.1 mg/dL 1.6-2.6 BASIC METABOLIC [id number] 05:06:00 Test Item Value Reference Range Comments SODIUM (BEAKER) (test 143 meq/L 136-145 gubr=356) POTASSIUM (BEAKER) (test 4.0 meq/L 3.5-5.1 xiqu=408) CHLORIDE (BEAKER) (test 109 meq/L 98-107 igyf=129) CO2 (BEAKER) (test 27 meq/L 22-29 pdzi=438) BLOOD UREA NITROGEN 40 mg/dL 7-21 (BEAKER) (test uigy=153) CREATININE (BEAKER) (test 1.10 mg/dL 0.57-1.25 oewg=342) GLUCOSE RANDOM (BEAKER) 164 mg/dL 70-105 (test ohcw=603) CALCIUM (BEAKER) (test 9.2 mg/dL 8.4-10.2 vvrw=369) EGFR (BEAKER) (test 50 mL/min/1.73 sq m ESTIMATED GFR IS NOT jhlx=5328) ACCURATE CREATININE CLEARANCE IN PREDICTING GLOMERULAR FILTRATION RATE. ESTIMATED GFR IS NOT APPLICABLE FOR DIALYSIS PATIENTS. PROTHROMBIN [id number] 04:55:00 Test Item Value Reference Range Comments PROTIME (BEAKER) (test twtr=218) 13.5 seconds 11.7-14.7 INR (BEAKER) (test xvxz=213) 1.0 <=5.9 RECOMMENDED COUMADIN/WARFARIN INR THERAPY RANGESSTANDARD DOSE: 2.0 - 3.0 Includes: PROPHYLAXIS forvenous thrombosis, systemic embolization; TREATMENT for venous thrombosis and/or pulmonary embolus.HIGH RISK: Target INR is 2.5-3.5 for patients with mechanical heart valves.[id number] 04:55:00 Test Item Value Reference Range Comments PARTIAL THROMBOPLASTIN TIME (BEAKER) (test 27.1 seconds 22.5-36.0 jinr=038) RAD, CHEST, 1 VIEW, NON [id number] 04:52:00Reason for exam:->s/p TEVAR with linesShould this be performed at the bedside?->YesFINAL REPORT RAD, CHEST, 1 VIEW, NON DEPT INDICATION: s/p TEVAR with lines COMPARISON: Prior day's exam FINDINGS: Portable frontal view of the chest. IMPRESSION: Support Lines: Right PICC has been removed. Right IJ central venous catheter again terminates over the right atrium. Enteric tube is stable. Lungs and pleura: Unchanged airspace and interstitial opacities. No pneumothorax.Heart and mediastinum: Stable contours. Stable surgical changes.Additional findings: None. Signed: JR Guzman Robert MDReport Verified Date/Time: 07/29/2017 04:52:56 Reading Location: [place] [address]Y CT Body Reading Room CBC (HEMOGRAM ONLY)2017-07-29 04:30:00 Test Item Value Reference Range Comments WHITE BLOOD CELL COUNT (BEAKER) (test wlba=289) 5.3 K/ L 3.5-10.5 RED BLOOD CELL COUNT (BEAKER) (test dslm=105) 3.49 M/ L 3.93-5.22 HEMOGLOBIN (BEAKER) (test hcou=380) 10.1 GM/DL 11.2-15.7 HEMATOCRIT (BEAKER) (test mlta=977) 34.1 % 34.1-44.9 MEAN CORPUSCULAR VOLUME (BEAKER) (test ykin=929) 97.7 fL 79.4-94.8 MEAN CORPUSCULAR HEMOGLOBIN (BEAKER) (test 28.9 pg 25.6-32.2 gcsa=687) MEAN CORPUSCULAR HEMOGLOBIN CONC (BEAKER) (test 29.6 GM/DL 32.2-35.5 frta=636) RED CELL DISTRIBUTION WIDTH (BEAKER) (test 15.9 % 11.7-14.4 jnzo=686) PLATELET COUNT (BEAKER) (test cjvc=892) 219 K/CU MM 150-450 MEAN PLATELET VOLUME (BEAKER) (test uipb=016) 12.2 fL 9.4-12.3 NUCLEATED RED BLOOD CELLS (BEAKER) (test 0 /100 WBC 0-0 uwwk=100) POCT-GLUCOSE [id number] 00:10:00 Test Item Value Reference Range Comments POC-GLUCOSE METER (BEAKER) 170 mg/dL 70-110 TESTED AT [address] (test njne=9383) [place] [address] POCT-GLUCOSE [id number] 18:09:00 Test Item Value Reference Range Comments POC-GLUCOSE METER (BEAKER) 205 mg/dL 70-110 TESTED AT [address] (test aupa=8848) [place] [address] [id number] 16:53:00 Test Item Value Reference Range Comments POTASSIUM (BEAKER) (test jajv=013) 4.1 meq/L 3.5-5.1 PRN - repeat potassium levels every 1 hour until glucose level is less than 450 mg/[id number] 16:53:00 Test Item Value Reference Range Comments MAGNESIUM (BEAKER) (test xikg=266) 2.2 mg/dL 1.6-2.6 PRN - repeat potassium levels every 1 hour until glucose level is less than 450 mg/dLPOCT-GLUCOSE [id number] 15:17:00 Test Item Value Reference Range Comments POC-GLUCOSE METER (BEAKER) 186 mg/dL 70-110 TESTED AT [address] (test ejwa=3705) [place] [address] RAD, CHEST, 1 VIEW, NON [id number] 11:09:00Reason for exam:->s/p central line placementShould this be performed at the bedside?->YesFINAL REPORT CHEST ONE VIEW HISTORY: Status post central line placement COMPARISON: 07/28/2017 at 0528 hours FINDINGS: Single portable AP examination of the chest was performed. Interval placement of a right jugular catheter, with the tip in the region of the right atrium. RightPICC line remains in place, with its tip in the SVC region. Mild bibasilar airspace opacities and faint diffuse interstitial opacities are unchanged since the prior study. No pleural effusion or pneumothorax are identified. 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 Nasogastric tube passesbelow the diaphragm, with the tip not imaged. Signed: Everett Mock Verified Date/ Time: 07/28/2017 11:09:19 Reading Location: [facility] B1 C013X Ortho Consult Reading Room BLOOD [id number] 09:48:00 Test Item Value Reference Range Comments CULTURE (BEAKER) From Aerobic And Anaerobic (test zggn=1419) Bottles Same organism has been isolated from cultures(s) of the same body site and collection date. Repeat identification and susceptibility testing performed only after consultation with the clinical microbiology laboratory.Refer to previous culture ofCoagulase negative Staphylococcus GRAM STAIN RESULT From aerobic and (BEAKER) (test anaerobic bottles: fnxr=8360) gram positive cocci in clusters POCT-GLUCOSE [id number] 06:26:00 Test Item Value Reference Range Comments POC-GLUCOSE METER (BEAKER) 188 mg/dL 70-110 TESTED AT [address] (test vjsp=9547) [facility] [address] RAD, CHEST, 1 VIEW, NON [id number] 06:02:00Reason for exam:->s/p TEVAR with linesShould this be performed at the bedside?->YesFINAL REPORT RAD, CHEST, 1 VIEW, NON DEPT INDICATION: s/p TEVAR with lines COMPARISON: Prior day's exam FINDINGS: Portable frontal view of the chest. IMPRESSION: Support Lines: Stable. Lungs and pleura: Unchanged airspace, interstitial and pleural opacities. No pneumothorax.Heart and mediastinum: Stable contours. Stable surgical changes.Additional findings: None. Signed: JR Guzman Robert MDReport Verified Date/Time: 07/28/2017 06:02:43 Reading Location: [facility] B1 C013Y CT Body Reading Room BLOOD GAS, [id number] 05: 33:00 Test Item Value Reference Range Comments PH ARTERIAL (BEAKER) (test bhdq=596) 7.37 7.35-7.45 PCO2 ARTERIAL (BEAKER) (test qjqy=460) 51 mmHg 35-45 PO2 ARTERIAL (BEAKER) (test uutd=794) 76 mmHg 80-90 O2 SATURATION ARTERIAL (BEAKER) (test nnze=956) 95.0 % 96.0-97.0 HCO3 ARTERIAL (BEAKER) (test hhpm=440) 29 mmol/L 21-29 BASE EXCESS ARTERIAL (BEAKER) (test eyjm=257) 3.0 mmol/L -2.0-3.0 PATIENT TEMPERATURE (BEAKER) (test iiso=5356) 36.5 C FIO2 (BEAKER) (test tinu=0427) 40.0 % Daily ABG with morning labs while patient is intubated.[id number] 05: 15:00 Test Item Value Reference Range Comments PHOSPHORUS (BEAKER) (test kbpi=214) 4.1 mg/dL 2.3-4.7 [id number] 05:15:00 Test Item Value Reference Range Comments MAGNESIUM (BEAKER) (test jgum=404) 2.2 mg/dL 1.6-2.6 BASIC METABOLIC [id number] 05:15:00 Test Item Value Reference Range Comments SODIUM (BEAKER) (test 148 meq/L 136-145 tfyn=897) POTASSIUM (BEAKER) (test 3.7 meq/L 3.5-5.1 pmle=821) CHLORIDE (BEAKER) (test 112 meq/L 98-107 rctv=236) CO2 (BEAKER) (test 27 meq/L 22-29 eorg=340) BLOOD UREA NITROGEN 49 mg/dL 7-21 (BEAKER) (test fpwu=426) CREATININE (BEAKER) (test 1.18 mg/dL 0.57-1.25 wlbu=850) GLUCOSE RANDOM (BEAKER) 154 mg/dL 70-105 (test mpgq=990) CALCIUM (BEAKER) (test 9.5 mg/dL 8.4-10.2 xqvf=826) EGFR (BEAKER) (test 46 mL/min/1.73 sq m ESTIMATED GFR IS NOT sdab=4763) ACCURATE CREATININE CLEARANCE IN PREDICTING GLOMERULAR FILTRATION RATE. ESTIMATED GFR IS NOT APPLICABLE FOR DIALYSIS PATIENTS. VANCOMYCIN LEVEL, [id number] 05:14:00 Test Item Value Reference Range Comments VANCOMYCIN RANDOM (BEAKER) (test dzfe=494) 25.6 ug/mL Reference Range: No NormalsPROTHROMBIN [id number] 05:05:00 Test Item Value Reference Range Comments PROTIME (BEAKER) (test zrfd=612) 14.1 seconds 11.7-14.7 INR (BEAKER) (test gorj=426) 1.1 <=5.9 RECOMMENDED COUMADIN/WARFARIN INR THERAPY RANGESSTANDARD DOSE: 2.0 - 3.0 Includes: PROPHYLAXIS forvenous thrombosis, systemic embolization; TREATMENT for venous thrombosis and/or pulmonary embolus.HIGH RISK: Target INR is 2.5-3.5 for patients with mechanical heart valves.[id number] 05:05:00 Test Item Value Reference Range Comments PARTIAL THROMBOPLASTIN TIME (BEAKER) (test 25.8 seconds 22.5-36.0 xehx=449) CBC (HEMOGRAM ONLY)2017-07-28 05:00:00 Test Item Value Reference Range Comments WHITE BLOOD CELL COUNT (BEAKER) (test zxer=900) 5.1 K/ L 3.5-10.5 RED BLOOD CELL COUNT (BEAKER) (test xkdv=863) 3.43 M/ L 3.93-5.22 HEMOGLOBIN (BEAKER) (test dzke=502) 10.0 GM/DL 11.2-15.7 HEMATOCRIT (BEAKER) (test wrqz=844) 33.5 % 34.1-44.9 MEAN CORPUSCULAR VOLUME (BEAKER) (test oybd=080) 97.7 fL 79.4-94.8 MEAN CORPUSCULAR HEMOGLOBIN (BEAKER) (test 29.2 pg 25.6-32.2 opbf=606) MEAN CORPUSCULAR HEMOGLOBIN CONC (BEAKER) (test 29.9 GM/DL 32.2-35.5 qzzu=741) RED CELL DISTRIBUTION WIDTH (BEAKER) (test 15.9 % 11.7-14.4 gzgr=419) PLATELET COUNT (BEAKER) (test knmm=054) 227 K/CU MM 150-450 MEAN PLATELET VOLUME (BEAKER) (test rons=953) 12.6 fL 9.4-12.3 NUCLEATED RED BLOOD CELLS (BEAKER) (test 0 /100 WBC 0-0 xlbd=513) POCT-GLUCOSE [id number] 00:29:00 Test Item Value Reference Range Comments POC-GLUCOSE METER (BEAKER) 206 mg/dL 70-110 TESTED AT [address] (test hwpw=7975) [place] [id number] BLOOD GAS, [id number] 19:45:00 Test Item Value Reference Range Comments PH ARTERIAL (BEAKER) (test zpuw=059) 7.41 7.35-7.45 PCO2 ARTERIAL (BEAKER) (test vojx=981) 44 mmHg 35-45 PO2 ARTERIAL (BEAKER) (test jscc=730) 81 mmHg 80-90 O2 SATURATION ARTERIAL (BEAKER) (test icyc=943) 96.0 % 96.0-97.0 HCO3 ARTERIAL (BEAKER) (test agbt=332) 27 mmol/L 21-29 BASE EXCESS ARTERIAL (BEAKER) (test bqho=211) 2.0 mmol/L -2.0-3.0 PATIENT TEMPERATURE (BEAKER) (test bscw=2553) 37.0 C FIO2 (BEAKER) (test dokh=4184) 100.0 % POCT-GLUCOSE [id number] 17:59:00 Test Item Value Reference Range Comments POC-GLUCOSE METER (BEAKER) 198 mg/dL 70-110 TESTED AT [address] (test mcpm=5359) [place] [address] POCT-GLUCOSE [id number] 12:02:00 Test Item Value Reference Range Comments POC-GLUCOSE METER (BEAKER) 239 mg/dL 70-110 TESTED AT [address] (test hixc=6884) [place] [id number] BLOOD GAS, [id number] 11:08:00 Test Item Value Reference Range Comments PH ARTERIAL (BEAKER) (test ulos=451) 7.44 7.35-7.45 PCO2 ARTERIAL (BEAKER) (test niwy=630) 42 mmHg 35-45 PO2 ARTERIAL (BEAKER) (test xuhf=897) 111 mmHg 80-90 O2 SATURATION ARTERIAL (BEAKER) (test ehfi=089) 98.3 % 96.0-97.0 HCO3 ARTERIAL (BEAKER) (test gdxa=977) 28 mmol/L 21-29 BASE EXCESS ARTERIAL (BEAKER) (test dvhe=298) 3.6 mmol/L -2.0-3.0 PATIENT TEMPERATURE (BEAKER) (test gbtn=4887) 36.5 C FIO2 (BEAKER) (test cgji=0481) 40.0 % RAD, CHEST, 1 VIEW, NON [id number] 06:50:00Reason for exam:->s/p TEVAR with linesShould this be performed at the bedside?->YesFINAL REPORT RAD, CHEST, 1 VIEW, NON DEPT INDICATION: s/p TEVAR with lines COMPARISON: Prior day's exam FINDINGS: Portable frontal view of the chest. IMPRESSION: Support Lines: Endotracheal tube has been removed. Enteric tube and right PICC are stable. Lungs and pleura: Congestive and atelectatic changes bilaterally again noted with interval improvement compared to the priordate. No effusion. No pneumothorax.Heart and mediastinum: Stable contours. Stable surgical changes.Additional findings: None. Signed: JR Guzman Robert MDReport Verified Date/Time: 07/27/2017 06:50:41 Reading Location: [facility] C013Y CT Body Reading Room POCT-GLUCOSE [id number] 06:24:00 Test Item Value Reference Range Comments POC-GLUCOSE METER (BEAKER) 335 mg/dL 70-110 TESTED AT [facility] [address] [facility] (test jjjq=9658) [facility] [address] [id number] 06:13:00 Test Item Value Reference Range Comments PHOSPHORUS (BEAKER) (test wwgr=767) 4.7 mg/dL 2.3-4.7 [id number] 06:13:00 Test Item Value Reference Range Comments MAGNESIUM (BEAKER) (test dtbc=979) 2.1 mg/dL 1.6-2.6 BASIC METABOLIC [id number] 06:13:00 Test Item Value Reference Range Comments SODIUM (BEAKER) (test 146 meq/L 136-145 dmtm=825) POTASSIUM (BEAKER) (test 4.2 meq/L 3.5-5.1 yxor=529) CHLORIDE (BEAKER) (test 109 meq/L 98-107 amzv=131) CO2 (BEAKER) (test 26 meq/L 22-29 idtm=754) BLOOD UREA NITROGEN 47 mg/dL 7-21 (BEAKER) (test uxvz=872) CREATININE (BEAKER) (test 1.39 mg/dL 0.57-1.25 mtsk=768) GLUCOSE RANDOM (BEAKER) 340 mg/dL 70-105 (test xime=498) CALCIUM (BEAKER) (test 9.6 mg/dL 8.4-10.2 tfjw=773) EGFR (BEAKER) (test 38 mL/min/1.73 sq m ESTIMATED GFR IS NOT sidj=8719) ACCURATE CREATININE CLEARANCE IN PREDICTING GLOMERULAR FILTRATION RATE. ESTIMATED GFR IS NOT APPLICABLE FOR DIALYSIS PATIENTS. VANCOMYCIN LEVEL, [id number] 05:52:00 Test Item Value Reference Range Comments VANCOMYCIN RANDOM (BEAKER) (test gjpq=316) 22.2 ug/mL Reference Range: No [id number] 05:39:00 Test Item Value Reference Range Comments PARTIAL THROMBOPLASTIN TIME (BEAKER) (test < seconds 22.5-36.0 xnqh=575) PROTHROMBIN TIME/[id number] 05:36:00 Test Item Value Reference Range Comments PROTIME (BEAKER) (test biuo=189) 13.5 seconds 11.7-14.7 INR (BEAKER) (test hicy=381) 1.0 <=5.9 RECOMMENDED COUMADIN/WARFARIN INR THERAPY RANGESSTANDARD DOSE: 2.0 - 3.0 Includes: PROPHYLAXIS forvenous thrombosis, systemic embolization; TREATMENT for venous thrombosis and/or pulmonary embolus.HIGH RISK: Target INR is 2.5-3.5 for patients with mechanical heart valves.CBC (HEMOGRAM ONLY)2017-07-27 05:35:00 Test Item Value Reference Range Comments WHITE BLOOD CELL COUNT (BEAKER) (test fffb=977) 5.6 K/ L 3.5-10.5 RED BLOOD CELL COUNT (BEAKER) (test vasa=678) 3.28 M/ L 3.93-5.22 HEMOGLOBIN (BEAKER) (test bavu=643) 9.5 GM/DL 11.2-15.7 HEMATOCRIT (BEAKER) (test haos=583) 31.8 % 34.1-44.9 MEAN CORPUSCULAR VOLUME (BEAKER) (test wewd=708) 97.0 fL 79.4-94.8 MEAN CORPUSCULAR HEMOGLOBIN (BEAKER) (test 29.0 pg 25.6-32.2 gocj=930) MEAN CORPUSCULAR HEMOGLOBIN CONC (BEAKER) (test 29.9 GM/DL 32.2-35.5 nrtn=916) RED CELL DISTRIBUTION WIDTH (BEAKER) (test 15.8 % 11.7-14.4 lzgw=954) PLATELET COUNT (BEAKER) (test errj=974) 236 K/CU MM 150-450 MEAN PLATELET VOLUME (BEAKER) (test kupn=856) 12.7 fL 9.4-12.3 NUCLEATED RED BLOOD CELLS (BEAKER) (test 0 /100 WBC 0-0 cvcd=877) BLOOD GAS, [id number] 05:28:00 Test Item Value Reference Range Comments PH ARTERIAL (BEAKER) (test erjh=749) 7.33 7.35-7.45 PCO2 ARTERIAL (BEAKER) (test fibh=684) 56 mmHg 35-45 PO2 ARTERIAL (BEAKER) (test hdyg=033) 70 mmHg 80-90 O2 SATURATION ARTERIAL (BEAKER) (test cdar=980) 92.5 % 96.0-97.0 HCO3 ARTERIAL (BEAKER) (test qrrv=318) 29 mmol/L 21-29 BASE EXCESS ARTERIAL (BEAKER) (test ztjj=002) 1.8 mmol/L -2.0-3.0 PATIENT TEMPERATURE (BEAKER) (test sucv=2781) 37.0 C FIO2 (BEAKER) (test eniv=5786) 40.0 % Daily ABG with morning labs while patient is intubated.POCT-GLUCOSE [id number] 00:40:00 Test Item Value Reference Range Comments POC-GLUCOSE METER (BEAKER) 388 mg/dL 70-110 TESTED AT [address] (test enno=6057) [place] [id number] VANCOMYCIN LEVEL, [id number] 18:23:00 Test Item Value Reference Range Comments VANCOMYCIN TROUGH (BEAKER) (test zghv=291) 32.4 ug/mL 10.0-20.0 30 minutes prior to 4th dose.POCT-GLUCOSE [id number] 18:11:00 Test Item Value Reference Range Comments POC-GLUCOSE METER (BEAKER) 340 mg/dL 70-110 Verify with Lab draw/TESTED AT (test vddi=4918) [facility] [address] [facility] [address] URINE [id number] 12:22:00 Test Item Value Reference Range Comments CULTURE (BEAKER) (test rkpx=3902) No growth POCT-GLUCOSE [id number] 12:00:00 Test Item Value Reference Range Comments POC-GLUCOSE METER (BEAKER) 299 mg/dL 70-110 TESTED AT [address] (test dsqg=3150) [facility] [address] BRONCHIAL CULTURE + GRAM [id number] 10:03:00 Test Item Value Reference Range Comments CULTURE (BEAKER) (test 1+ Normal respiratory ambreen iwqt=8085) present GRAM STAIN RESULT (BEAKER) 1+ WBCs (test izhp=1539) GRAM STAIN RESULT (BEAKER) No organisms seen (test sitv=13348) SPUTUM CULTURE + GRAM [id number] 10:02:00 Test Item Value Reference Range Comments CULTURE (BEAKER) (test 1+ Normal respiratory ambreen omsh=5919) present GRAM STAIN RESULT (BEAKER) 1+ WBCs (test fdgf=6285) GRAM STAIN RESULT (BEAKER) 0-5 epithelial cells (test volk=35940) GRAM STAIN RESULT (BEAKER) No organisms seen (test qmna=93007) POCT-GLUCOSE [id number] 06:12:00 Test Item Value Reference Range Comments POC-GLUCOSE METER (BEAKER) 279 mg/dL 70-110 TESTED AT [address] (test jepq=9206) [place] [id number] BLOOD GAS, [id number] 05:47:00 Test Item Value Reference Range Comments PH ARTERIAL (BEAKER) (test ggep=145) 7.45 7.35-7.45 PCO2 ARTERIAL (BEAKER) (test lkjn=595) 42 mmHg 35-45 PO2 ARTERIAL (BEAKER) (test ijdo=870) 75 mmHg 80-90 O2 SATURATION ARTERIAL (BEAKER) (test fwjr=198) 95.7 % 96.0-97.0 HCO3 ARTERIAL (BEAKER) (test mwiz=238) 29 mmol/L 21-29 BASE EXCESS ARTERIAL (BEAKER) (test efim=787) 4.3 mmol/L -2.0-3.0 PATIENT TEMPERATURE (BEAKER) (test pqft=3208) 37.0 C FIO2 (BEAKER) (test vzrf=3053) 100.0 % Daily ABG with morning labs while patient is intubated.[id number] 05: 38:00 Test Item Value Reference Range Comments PHOSPHORUS (BEAKER) (test lorh=559) 3.1 mg/dL 2.3-4.7 [id number] 05:38:00 Test Item Value Reference Range Comments MAGNESIUM (BEAKER) (test ykin=795) 2.0 mg/dL 1.6-2.6 BASIC METABOLIC [id number] 05:38:00 Test Item Value Reference Range Comments SODIUM (BEAKER) (test 144 meq/L 136-145 xgpt=552) POTASSIUM (BEAKER) (test 3.9 meq/L 3.5-5.1 wctv=646) CHLORIDE (BEAKER) (test 109 meq/L 98-107 ymru=664) CO2 (BEAKER) (test 25 meq/L 22-29 zvkc=243) BLOOD UREA NITROGEN 47 mg/dL 7-21 (BEAKER) (test tisc=340) CREATININE (BEAKER) (test 1.46 mg/dL 0.57-1.25 jtxf=219) GLUCOSE RANDOM (BEAKER) 332 mg/dL 70-105 (test djsd=066) CALCIUM (BEAKER) (test 8.9 mg/dL 8.4-10.2 unty=494) EGFR (BEAKER) (test 36 mL/min/1.73 sq m ESTIMATED GFR IS NOT mfse=1484) ACCURATE CREATININE CLEARANCE IN PREDICTING GLOMERULAR FILTRATION RATE. ESTIMATED GFR IS NOT APPLICABLE FOR DIALYSIS PATIENTS. POCT-GLUCOSE [id number] 05:24:00 Test Item Value Reference Range Comments POC-GLUCOSE METER (BEAKER) 283 mg/dL 70-110 TESTED AT [facility] [address] [facility] (test wxqd=6378) [facility] [address] PROTHROMBIN TIME/[id number] 05:05:00 Test Item Value Reference Range Comments PROTIME (BEAKER) (test pvld=719) 15.2 seconds 11.7-14.7 INR (BEAKER) (test xzms=356) 1.2 <=5.9 RECOMMENDED COUMADIN/WARFARIN INR THERAPY RANGESSTANDARD DOSE: 2.0 - 3.0 Includes: PROPHYLAXIS forvenous thrombosis, systemic embolization; TREATMENT for venous thrombosis and/or pulmonary embolus.HIGH RISK: Target INR is 2.5-3.5 for patients with mechanical heart valves.[id number] 05:05:00 Test Item Value Reference Range Comments PARTIAL THROMBOPLASTIN TIME (BEAKER) (test 28.2 seconds 22.5-36.0 oqpi=398) CBC (HEMOGRAM ONLY)2017-07-26 04:53:00 Test Item Value Reference Range Comments WHITE BLOOD CELL COUNT (BEAKER) (test kfyl=895) 5.0 K/ L 3.5-10.5 RED BLOOD CELL COUNT (BEAKER) (test ahqf=967) 3.10 M/ L 3.93-5.22 HEMOGLOBIN (BEAKER) (test vgru=199) 8.9 GM/DL 11.2-15.7 HEMATOCRIT (BEAKER) (test epic=236) 29.9 % 34.1-44.9 MEAN CORPUSCULAR VOLUME (BEAKER) (test qqza=061) 96.5 fL 79.4-94.8 MEAN CORPUSCULAR HEMOGLOBIN (BEAKER) (test 28.7 pg 25.6-32.2 xvsp=778) MEAN CORPUSCULAR HEMOGLOBIN CONC (BEAKER) (test 29.8 GM/DL 32.2-35.5 tgzz=520) RED CELL DISTRIBUTION WIDTH (BEAKER) (test 16.2 % 11.7-14.4 hnsi=446) PLATELET COUNT (BEAKER) (test klcg=528) 216 K/CU MM 150-450 MEAN PLATELET VOLUME (BEAKER) (test seqr=232) 12.6 fL 9.4-12.3 NUCLEATED RED BLOOD CELLS (BEAKER) (test 0 /100 WBC 0-0 gdey=035) RAD, CHEST, 1 VIEW, NON [id number] 04:44:00Reason for exam:->s/p TEVAR with linesShould this be performed at the bedside?->YesFINAL REPORT RAD, CHEST, 1 VIEW, NON DEPT INDICATION: s/p TEVAR with lines COMPARISON: Prior day's exam FINDINGS: Portable frontal view of the chest. IMPRESSION: Support Lines: Stable. Lungs and pleura: Improving aeration with decreasing atelectatic change at the right base. No significant effusion. No pneumothorax.Heart and mediastinum: Stable contours. Stable vascular surgical changes.Additional findings: None. Signed: JR Guzman Robert MDReport Verified Date/Time: 07/26/2017 04:44:03 Reading Location: [facility] B1 C013Y CT Body Reading Room POCT-GLUCOSE [id number] 04:06:00 Test Item Value Reference Range Comments POC-GLUCOSE METER (BEAKER) 328 mg/dL 70-110 Notified KIMBERLY SAINZ/TESTED AT [facility] (test iibe=3803) [address] [place] [address] POCT-GLUCOSE [id number] 03:21:00 Test Item Value Reference Range Comments POC-GLUCOSE METER (BEAKER) 298 mg/dL 70-110 TESTED AT [address] (test ulij=3343) [facility] [address] POCT-GLUCOSE [id number] 03:12:00 Test Item Value Reference Range Comments POC-GLUCOSE METER (BEAKER) 311 mg/dL 70-110 TESTED AT [address] (test fjyj=4016) [facility] [address] [id number] 00:53:00 Test Item Value Reference Range Comments POTASSIUM (BEAKER) (test wbxb=676) 3.7 meq/L 3.5-5.1 [id number] 00:53:00 Test Item Value Reference Range Comments GLUCOSE RANDOM (BEAKER) (test hhqy=396) 336 mg/dL 70-105 POCT-GLUCOSE [id number] 00:06:00 Test Item Value Reference Range Comments POC-GLUCOSE METER (BEAKER) 348 mg/dL 70-110 Notified KIMBERLY SAINZ/TESTED AT [facility] (test lblm=6684) [address] [place] [address] POCT-GLUCOSE [id number] 18:51:00 Test Item Value Reference Range Comments POC-GLUCOSE METER (BEAKER) 313 mg/dL 70-110 Notified KIMBERLY SAINZ/TESTED AT [facility] (test tnrn=0591) [address] [place] [address] [id number] 16:55:00 Test Item Value Reference Range Comments MAGNESIUM (BEAKER) (test fkzi=859) 2.2 mg/dL 1.6-2.6 BASIC METABOLIC [id number] 16:55:00 Test Item Value Reference Range Comments SODIUM (BEAKER) (test 145 meq/L 136-145 ggnx=535) POTASSIUM (BEAKER) (test 3.8 meq/L 3.5-5.1 volm=333) CHLORIDE (BEAKER) (test 110 meq/L 98-107 awrg=837) CO2 (BEAKER) (test 27 meq/L 22-29 hzot=391) BLOOD UREA NITROGEN 42 mg/dL 7-21 (BEAKER) (test hhpb=937) CREATININE (BEAKER) (test 1.38 mg/dL 0.57-1.25 vwfw=426) GLUCOSE RANDOM (BEAKER) 270 mg/dL 70-105 (test vtzb=952) CALCIUM (BEAKER) (test 8.7 mg/dL 8.4-10.2 tbnz=774) EGFR (BEAKER) (test 39 mL/min/1.73 sq m ESTIMATED GFR IS NOT gdwk=2809) ACCURATE CREATININE CLEARANCE IN PREDICTING GLOMERULAR FILTRATION RATE. ESTIMATED GFR IS NOT APPLICABLE FOR DIALYSIS PATIENTS. POCT-GLUCOSE [id number] 13:11:00 Test Item Value Reference Range Comments POC-GLUCOSE METER (BEAKER) 284 mg/dL 70-110 TESTED AT [address] (test kkhc=7692) [place] [address] POCT-GLUCOSE [id number] 06:54:00 Test Item Value Reference Range Comments POC-GLUCOSE METER (BEAKER) 275 mg/dL 70-110 TESTED AT [address] (test jbwy=6567) [place] [id number] BLOOD GAS, [id number] 05:07:00 Test Item Value Reference Range Comments PH ARTERIAL (BEAKER) (test kcxq=843) 7.47 7.35-7.45 PCO2 ARTERIAL (BEAKER) (test vgrt=276) 42 mmHg 35-45 PO2 ARTERIAL (BEAKER) (test xhpb=601) 87 mmHg 80-90 O2 SATURATION ARTERIAL (BEAKER) (test xyxe=444) 97.1 % 96.0-97.0 HCO3 ARTERIAL (BEAKER) (test ppwe=979) 29 mmol/L 21-29 BASE EXCESS ARTERIAL (BEAKER) (test vgmt=046) 5.2 mmol/L -2.0-3.0 PATIENT TEMPERATURE (BEAKER) (test ccya=9513) 37.0 C FIO2 (BEAKER) (test hvur=5290) 40.0 % Daily ABG with morning labs while patient is intubated.RAD, CHEST, 1 VIEW, NON [id number] 04:36:00Reason for exam:->s/p TEVAR with linesShould this be performed at the bedside?->YesFINAL REPORT RAD, CHEST , 1 VIEW, NON DEPT INDICATION: s/p TEVAR with lines COMPARISON: Prior day's exam FINDINGS: Portable frontal view of the chest. IMPRESSION: Support Lines : Stable. Lungs and pleura: Unchanged airspace and pleural opacities. No pneumothorax.Heart and mediastinum: Stable contours. Stable surgical changes.Additional findings: None. Signed: JR Guzman Robert MDReport Verified Date/Time: 07/25/2017 04:36:28 Reading Location: [place] [id number] CT Body Reading Room [id number] 04:09:00 Test Item Value Reference Range Comments PHOSPHORUS (BEAKER) (test caqb=079) 2.8 mg/dL 2.3-4.7 [id number] 04:09:00 Test Item Value Reference Range Comments MAGNESIUM (BEAKER) (test emca=705) 2.1 mg/dL 1.6-2.6 BASIC METABOLIC [id number] 04:09:00 Test Item Value Reference Range Comments SODIUM (BEAKER) (test 148 meq/L 136-145 uzbb=882) POTASSIUM (BEAKER) (test 3.7 meq/L 3.5-5.1 avls=391) CHLORIDE (BEAKER) (test 110 meq/L 98-107 sqmz=745) CO2 (BEAKER) (test 30 meq/L 22-29 scry=096) BLOOD UREA NITROGEN 44 mg/dL 7-21 (BEAKER) (test esou=968) CREATININE (BEAKER) (test 1.56 mg/dL 0.57-1.25 zsbf=670) GLUCOSE RANDOM (BEAKER) 223 mg/dL 70-105 (test ukig=575) CALCIUM (BEAKER) (test 8.6 mg/dL 8.4-10.2 shjk=766) EGFR (BEAKER) (test 34 mL/min/1.73 sq m ESTIMATED GFR IS NOT jqbg=0768) ACCURATE CREATININE CLEARANCE IN PREDICTING GLOMERULAR FILTRATION RATE. ESTIMATED GFR IS NOT APPLICABLE FOR DIALYSIS PATIENTS. [id number] 03:52:00 Test Item Value Reference Range Comments PARTIAL THROMBOPLASTIN TIME (BEAKER) (test 30.5 seconds 22.5-36.0 agqm=645) PROTHROMBIN TIME/[id number] 03:51:00 Test Item Value Reference Range Comments PROTIME (BEAKER) (test udqf=995) 14.8 seconds 11.7-14.7 INR (BEAKER) (test yoew=550) 1.2 <=5.9 RECOMMENDED COUMADIN/WARFARIN INR THERAPY RANGESSTANDARD DOSE: 2.0 - 3.0 Includes: PROPHYLAXIS forvenous thrombosis, systemic embolization; TREATMENT for venous thrombosis and/or pulmonary embolus.HIGH RISK: Target INR is 2.5-3.5 for patients with mechanical heart valves.CBC (HEMOGRAM ONLY)2017-07-25 03:34:00 Test Item Value Reference Range Comments WHITE BLOOD CELL COUNT (BEAKER) (test cwud=070) 6.9 K/ L 3.5-10.5 RED BLOOD CELL COUNT (BEAKER) (test rfac=874) 2.96 M/ L 3.93-5.22 HEMOGLOBIN (BEAKER) (test azkc=683) 8.7 GM/DL 11.2-15.7 HEMATOCRIT (BEAKER) (test qqwq=374) 28.5 % 34.1-44.9 MEAN CORPUSCULAR VOLUME (BEAKER) (test hywi=001) 96.3 fL 79.4-94.8 MEAN CORPUSCULAR HEMOGLOBIN (BEAKER) (test 29.4 pg 25.6-32.2 lxrg=294) MEAN CORPUSCULAR HEMOGLOBIN CONC (BEAKER) (test 30.5 GM/DL 32.2-35.5 ljmb=662) RED CELL DISTRIBUTION WIDTH (BEAKER) (test 16.2 % 11.7-14.4 qaui=239) PLATELET COUNT (BEAKER) (test nbob=550) 214 K/CU MM 150-450 MEAN PLATELET VOLUME (BEAKER) (test ekvr=728) 12.5 fL 9.4-12.3 NUCLEATED RED BLOOD CELLS (BEAKER) (test 0 /100 WBC 0-0 njoi=492) POCT-GLUCOSE [id number] 00:12:00 Test Item Value Reference Range Comments POC-GLUCOSE METER (BEAKER) 214 mg/dL 70-110 TESTED AT [address] (test czjb=1274) [facility] [address] POCT-GLUCOSE [id number] 23:28:00 Test Item Value Reference Range Comments POC-GLUCOSE METER (BEAKER) 192 mg/dL 70-110 TESTED AT [address] (test fvap=8381) [facility] [address] POCT-GLUCOSE [id number] 14:19:00 Test Item Value Reference Range Comments POC-GLUCOSE METER (BEAKER) 236 mg/dL 70-110 TESTED AT [address] (test vvhx=5403) [facility] [address] POCT-GLUCOSE [id number] 11:17:00 Test Item Value Reference Range Comments POC-GLUCOSE METER (BEAKER) 110 mg/dL 70-110 TESTED AT [address] (test pdvj=4555) [facility] [address] POCT-GLUCOSE [id number] 05:42:00 Test Item Value Reference Range Comments POC-GLUCOSE METER (BEAKER) 183 mg/dL 70-110 TESTED AT [address] (test fdgq=9917) [facility] [address] RAD, CHEST, 1 VIEW, NON [id number] 05:09:00Reason for exam:->s/p TEVAR with linesShould this be performed at the bedside?->YesFINAL REPORT RAD, CHEST, 1 VIEW, NON DEPT INDICATION: s/p TEVAR with lines COMPARISON: Prior day's exam FINDINGS: Portable frontal view of the chest. IMPRESSION: Support Lines: Stable. Lungs and pleura: Increasing interstitial congestion. Stable small bilateral effusions. Findings concerning for volume load/central edema. No pneumothorax.Heart and mediastinum: Stable contours. Stable surgical changes.Additional findings: None. Signed: JR Guzman Robert MDReport Verified Date/Time: 07/24/2017 05:09:03 Reading Location: [address] Body Reading Room [id number] 03:52:00 Test Item Value Reference Range Comments PARTIAL THROMBOPLASTIN TIME (BEAKER) (test 25.8 seconds 22.5-36.0 kdie=309) PROTHROMBIN TIME/[id number] 03:51:00 Test Item Value Reference Range Comments PROTIME (BEAKER) (test tcjg=568) 13.6 seconds 11.7-14.7 INR (BEAKER) (test ekdo=090) 1.1 <=5.9 RECOMMENDED COUMADIN/WARFARIN INR THERAPY RANGESSTANDARD DOSE: 2.0 - 3.0 Includes: PROPHYLAXIS forvenous thrombosis, systemic embolization; TREATMENT for venous thrombosis and/or pulmonary embolus.HIGH RISK: Target INR is 2.5-3.5 for patients with mechanical heart valves.[id number] 03:42:00 Test Item Value Reference Range Comments PHOSPHORUS (BEAKER) (test bzvh=017) 3.1 mg/dL 2.3-4.7 [id number] 03:42:00 Test Item Value Reference Range Comments MAGNESIUM (BEAKER) (test hwze=590) 1.8 mg/dL 1.6-2.6 BASIC METABOLIC [id number] 03:42:00 Test Item Value Reference Range Comments SODIUM (BEAKER) (test 150 meq/L 136-145 ilvh=082) POTASSIUM (BEAKER) (test 3.4 meq/L 3.5-5.1 yiix=951) CHLORIDE (BEAKER) (test 112 meq/L 98-107 kyyg=962) CO2 (BEAKER) (test 30 meq/L 22-29 yxat=648) BLOOD UREA NITROGEN 41 mg/dL 7-21 (BEAKER) (test aqcj=699) CREATININE (BEAKER) (test 1.42 mg/dL 0.57-1.25 stxo=201) GLUCOSE RANDOM (BEAKER) 222 mg/dL 70-105 (test xpki=728) CALCIUM (BEAKER) (test 8.7 mg/dL 8.4-10.2 zrlr=905) EGFR (BEAKER) (test 37 mL/min/1.73 sq m ESTIMATED GFR IS NOT acus=4715) ACCURATE CREATININE CLEARANCE IN PREDICTING GLOMERULAR FILTRATION RATE. ESTIMATED GFR IS NOT APPLICABLE FOR DIALYSIS PATIENTS. CBC (HEMOGRAM ONLY)2017-07-24 03:24:00 Test Item Value Reference Range Comments WHITE BLOOD CELL COUNT (BEAKER) (test yrso=206) 7.8 K/ L 3.5-10.5 RED BLOOD CELL COUNT (BEAKER) (test favb=145) 3.09 M/ L 3.93-5.22 HEMOGLOBIN (BEAKER) (test upsh=631) 9.0 GM/DL 11.2-15.7 HEMATOCRIT (BEAKER) (test jhnn=042) 29.9 % 34.1-44.9 MEAN CORPUSCULAR VOLUME (BEAKER) (test mjff=792) 96.8 fL 79.4-94.8 MEAN CORPUSCULAR HEMOGLOBIN (BEAKER) (test 29.1 pg 25.6-32.2 gasi=170) MEAN CORPUSCULAR HEMOGLOBIN CONC (BEAKER) (test 30.1 GM/DL 32.2-35.5 vtcu=581) RED CELL DISTRIBUTION WIDTH (BEAKER) (test 16.0 % 11.7-14.4 gzuj=994) PLATELET COUNT (BEAKER) (test ycem=505) 230 K/CU MM 150-450 MEAN PLATELET VOLUME (BEAKER) (test safd=324) 12.6 fL 9.4-12.3 NUCLEATED RED BLOOD CELLS (BEAKER) (test 0 /100 WBC 0-0 ryzy=267) BLOOD GAS, [id number] 03:22:00 Test Item Value Reference Range Comments PH ARTERIAL (BEAKER) (test kcsn=335) 7.48 7.35-7.45 PCO2 ARTERIAL (BEAKER) (test sttd=062) 45 mmHg 35-45 PO2 ARTERIAL (BEAKER) (test qfwn=346) 74 mmHg 80-90 O2 SATURATION ARTERIAL (BEAKER) (test vsxv=268) 95.7 % 96.0-97.0 HCO3 ARTERIAL (BEAKER) (test kpta=628) 33 mmol/L 21-29 BASE EXCESS ARTERIAL (BEAKER) (test bama=062) 8.3 mmol/L -2.0-3.0 PATIENT TEMPERATURE (BEAKER) (test eutf=1903) 37.0 C FIO2 (BEAKER) (test xtbj=3612) 50.0 % Daily ABG with morning labs while patient is intubated.POCT-GLUCOSE [id number] 00:24:00 Test Item Value Reference Range Comments POC-GLUCOSE METER (BEAKER) 155 mg/dL 70-110 TESTED AT [facility] [address] [facility] (test eqki=7106) [facility] [address] POCT-GLUCOSE [id number] 19:04:00 Test Item Value Reference Range Comments POC-GLUCOSE METER (BEAKER) 202 mg/dL 70-110 TESTED AT [facility] [address] [facility] (test vasb=9912) [facility] [address] RAD, CHEST, 1 VIEW, NON [id number] 17:40:00Reason for exam:->check picc placement Should this be performed at the bedside?->YesFINAL REPORT TECHNIQUE: Frontal chest radiograph dated 07/23/2017. CLINICAL HISTORY: Check PICC COMPARISON STUDY: Chest radiograph performed earlier the same day IMPRESSION:There has been interval placement of a right-sided PICC with the tip projected over the right atrial/superior vena cava junction. The NG tube has been removed. Endovascular graft is seen in the descendingdistal thoracic aorta. Stable small bilateral pleural effusions with compressive atelectasis. There is stable pulmonary vascular congestion. Remaining life support tubes and lines are unchanged. No pneumothorax. Cardiomediastinal silhouette is stable in size. Degenerative changes are seen in the spine. Signed : Tj Simpson Verified Date/Time: 07/23/2017 17:40:46 [facility] [id number] 14:48:00 Test Item Value Reference Range Comments POTASSIUM (BEAKER) (test 3.9 meq/L 3.5-5.1 Specimen slightly hemolyzed myho=685) PRN - repeat potassium levels every 1 hour until glucose level is less than 450 mg/dLRAD, CHEST, 1 VIEW, NON [id number] 05:17:00Reason for exam:->s/p TEVAR with linesShould this be performed at the bedside?->YesFINAL REPORT RAD, CHEST, 1 VIEW, NON DEPT INDICATION: s/p TEVAR with lines COMPARISON: Prior day's exam FINDINGS: Portable frontal view of the chest. IMPRESSION: Limited by rotation.Support Lines: Stable. Lungs and pleura : Increasing atelectatic changes at the bases bilaterally, right greater than left. Small bilateral pleural effusions again noted. No pneumothorax.Heart and mediastinum: Discernible contours are stable. Redemonstration of a distal thoracic aortic stent graftmaterial.Additional findings: None. Signed: JR Thomas, Perlita Scruggs Verified Date/Time: 07/23/2017 05:17:05 Reading Location: [address] Transitional Reading Room BLOOD GAS, [id number] 03:59:00 Test Item Value Reference Range Comments PH ARTERIAL (BEAKER) (test quas=373) 7.40 7.35-7.45 PCO2 ARTERIAL (BEAKER) (test jcnx=081) 46 mmHg 35-45 PO2 ARTERIAL (BEAKER) (test syky=827) 83 mmHg 80-90 O2 SATURATION ARTERIAL (BEAKER) (test bghb=277) 96.0 % 96.0-97.0 HCO3 ARTERIAL (BEAKER) (test mjvx=899) 28 mmol/L 21-29 BASE EXCESS ARTERIAL (BEAKER) (test usvn=892) 2.5 mmol/L -2.0-3.0 PATIENT TEMPERATURE (BEAKER) (test aidf=2945) 37.0 C FIO2 (BEAKER) (test gkok=8445) 100.0 % Daily ABG with morning labs while patient is intubated.[id number] 03: 54:00 Test Item Value Reference Range Comments PHOSPHORUS (BEAKER) (test igxc=699) 3.9 mg/dL 2.3-4.7 [id number] 03:54:00 Test Item Value Reference Range Comments MAGNESIUM (BEAKER) (test rtxk=115) 2.3 mg/dL 1.6-2.6 BASIC METABOLIC [id number] 03:54:00 Test Item Value Reference Range Comments SODIUM (BEAKER) (test 152 meq/L 136-145 rary=576) POTASSIUM (BEAKER) (test 3.9 meq/L 3.5-5.1 tric=909) CHLORIDE (BEAKER) (test 114 meq/L 98-107 zxrg=283) CO2 (BEAKER) (test 26 meq/L 22-29 locj=147) BLOOD UREA NITROGEN 42 mg/dL 7-21 (BEAKER) (test rfch=980) CREATININE (BEAKER) (test 1.47 mg/dL 0.57-1.25 xuhb=468) GLUCOSE RANDOM (BEAKER) 182 mg/dL 70-105 (test hdce=961) CALCIUM (BEAKER) (test 8.9 mg/dL 8.4-10.2 ebqy=449) EGFR (BEAKER) (test 36 mL/min/1.73 sq m ESTIMATED GFR IS NOT cmpx=8969) ACCURATE CREATININE CLEARANCE IN PREDICTING GLOMERULAR FILTRATION RATE. ESTIMATED GFR IS NOT APPLICABLE FOR DIALYSIS PATIENTS. PROTHROMBIN TIME/[id number] 03:45:00 Test Item Value Reference Range Comments PROTIME (BEAKER) (test legq=123) 14.4 seconds 11.7-14.7 INR (BEAKER) (test xwwh=605) 1.1 <=5.9 RECOMMENDED COUMADIN/WARFARIN INR THERAPY RANGESSTANDARD DOSE: 2.0 - 3.0 Includes: PROPHYLAXIS forvenous thrombosis, systemic embolization; TREATMENT for venous thrombosis and/or pulmonary embolus.HIGH RISK: Target INR is 2.5-3.5 for patients with mechanical heart valves.[id number] 03:45:00 Test Item Value Reference Range Comments PARTIAL THROMBOPLASTIN TIME (BEAKER) (test 25.3 seconds 22.5-36.0 rxss=419) CBC (HEMOGRAM ONLY)2017-07-23 03:38:00 Test Item Value Reference Range Comments WHITE BLOOD CELL COUNT (BEAKER) (test hviy=573) 8.2 K/ L 3.5-10.5 RED BLOOD CELL COUNT (BEAKER) (test wybe=577) 3.13 M/ L 3.93-5.22 HEMOGLOBIN (BEAKER) (test tgda=575) 9.1 GM/DL 11.2-15.7 HEMATOCRIT (BEAKER) (test zycs=393) 30.8 % 34.1-44.9 MEAN CORPUSCULAR VOLUME (BEAKER) (test hnrm=365) 98.4 fL 79.4-94.8 MEAN CORPUSCULAR HEMOGLOBIN (BEAKER) (test 29.1 pg 25.6-32.2 hmgk=127) MEAN CORPUSCULAR HEMOGLOBIN CONC (BEAKER) (test 29.5 GM/DL 32.2-35.5 olys=697) RED CELL DISTRIBUTION WIDTH (BEAKER) (test 16.2 % 11.7-14.4 ijpz=785) PLATELET COUNT (BEAKER) (test donr=907) 222 K/CU MM 150-450 MEAN PLATELET VOLUME (BEAKER) (test cuae=277) 12.8 fL 9.4-12.3 NUCLEATED RED BLOOD CELLS (BEAKER) (test 0 /100 WBC 0-0 wrdm=525) RAD, ABDOMEN/KUB, 1 VIEW [id number] 22:33:00Reason for exam:->New NG tube Should this be performed at the bedside?->YesFINAL REPORT RAD, ABDOMEN/KUB, 1 VIEW AP COMPARISON: 18 hours prior INDICATION: New NG tube IMPRESSION:A nasogastric tube has been placed. The distal tip projects in the region of the proximal gastric body. The side-port is just beyond the GE junction. Advancement may be required for optimal functioning. The visible bowel gas pattern is unremarkable. Signed: JR Guzman Robert MDReport Verified Date/Time: 07/22/2017 22:33:01 Reading Location: [address] Transitional Reading Room POCT-GLUCOSE [id number] 12:25:00 Test Item Value Reference Range Comments POC-GLUCOSE METER (BEAKER) 155 mg/dL 70-110 TESTED AT [address] (test lqeo=9099) [facility] [id number] 06:41:00 Test Item Value Reference Range Comments PHOSPHORUS (BEAKER) (test gcwp=665) 3.8 mg/dL 2.3-4.7 [id number] 06:41:00 Test Item Value Reference Range Comments MAGNESIUM (BEAKER) (test yxyq=377) 2.2 mg/dL 1.6-2.6 BASIC METABOLIC [id number] 06:41:00 Test Item Value Reference Range Comments SODIUM (BEAKER) (test 154 meq/L 136-145 oaui=873) POTASSIUM (BEAKER) (test 3.6 meq/L 3.5-5.1 oiqy=341) CHLORIDE (BEAKER) (test 115 meq/L 98-107 drgk=203) CO2 (BEAKER) (test 28 meq/L 22-29 ffid=744) BLOOD UREA NITROGEN 41 mg/dL 7-21 (BEAKER) (test rbdj=898) CREATININE (BEAKER) (test 1.41 mg/dL 0.57-1.25 jpdq=047) GLUCOSE RANDOM (BEAKER) 146 mg/dL 70-105 (test tekg=898) CALCIUM (BEAKER) (test 8.8 mg/dL 8.4-10.2 plfe=103) EGFR (BEAKER) (test 38 mL/min/1.73 sq m ESTIMATED GFR IS NOT fwer=5067) ACCURATE CREATININE CLEARANCE IN PREDICTING GLOMERULAR FILTRATION RATE. ESTIMATED GFR IS NOT APPLICABLE FOR DIALYSIS PATIENTS. [id number] 06:32:00 Test Item Value Reference Range Comments PARTIAL THROMBOPLASTIN TIME (BEAKER) (test 28.1 seconds 22.5-36.0 ypmc=868) PROTHROMBIN TIME/[id number] 06:29:00 Test Item Value Reference Range Comments PROTIME (BEAKER) (test gbuc=396) 13.8 seconds 11.7-14.7 INR (BEAKER) (test klfe=515) 1.1 <=5.9 RECOMMENDED COUMADIN/WARFARIN INR THERAPY RANGESSTANDARD DOSE: 2.0 - 3.0 Includes: PROPHYLAXIS forvenous thrombosis, systemic embolization; TREATMENT for venous thrombosis and/or pulmonary embolus.HIGH RISK: Target INR is 2.5-3.5 for patients with mechanical heart valves.CBC (HEMOGRAM ONLY)2017-07-22 06:09:00 Test Item Value Reference Range Comments WHITE BLOOD CELL COUNT (BEAKER) (test dufu=612) 7.9 K/ L 3.5-10.5 RED BLOOD CELL COUNT (BEAKER) (test pqrx=494) 3.18 M/ L 3.93-5.22 HEMOGLOBIN (BEAKER) (test bbbq=020) 9.2 GM/DL 11.2-15.7 HEMATOCRIT (BEAKER) (test nnzg=091) 31.2 % 34.1-44.9 MEAN CORPUSCULAR VOLUME (BEAKER) (test ttvq=208) 98.1 fL 79.4-94.8 MEAN CORPUSCULAR HEMOGLOBIN (BEAKER) (test 28.9 pg 25.6-32.2 dsbx=319) MEAN CORPUSCULAR HEMOGLOBIN CONC (BEAKER) (test 29.5 GM/DL 32.2-35.5 tnrf=396) RED CELL DISTRIBUTION WIDTH (BEAKER) (test 16.2 % 11.7-14.4 ilas=030) PLATELET COUNT (BEAKER) (test ykde=490) 212 K/CU MM 150-450 MEAN PLATELET VOLUME (BEAKER) (test qohl=668) 12.7 fL 9.4-12.3 NUCLEATED RED BLOOD CELLS (BEAKER) (test 0 /100 WBC 0-0 xfme=363) BLOOD GAS, [id number] 06:08:00 Test Item Value Reference Range Comments PH ARTERIAL (BEAKER) (test mvsd=527) 7.42 7.35-7.45 PCO2 ARTERIAL (BEAKER) (test rwpz=166) 47 mmHg 35-45 PO2 ARTERIAL (BEAKER) (test lofj=092) 138 mmHg 80-90 O2 SATURATION ARTERIAL (BEAKER) (test fcti=875) 98.8 % 96.0-97.0 HCO3 ARTERIAL (BEAKER) (test ynor=523) 30 mmol/L 21-29 BASE EXCESS ARTERIAL (BEAKER) (test jkfi=975) 4.6 mmol/L -2.0-3.0 PATIENT TEMPERATURE (BEAKER) (test zwnf=0827) 36.8 C FIO2 (BEAKER) (test fkqc=5220) 100.0 % Daily ABG with morning labs while patient is intubated.RAD, ABDOMEN/KUB, 1 VIEW [id number] 04:48:00Reason for exam:->NG tube placment Should this be performed at the bedside?->YesFINAL REPORT EXAMINATION : SUPINE ABDOMEN CLINICAL INDICATION: Nasogastric tube placement IMPRESSION: Compared with 07/19/2017. Tip of the nasogastric tube now projects over the left upper abdomen in the region of the stomach. The visualized bowel gas pattern is nonspecific with gaseous distention of the stomach and visualized loops of bowel. Ileus would be a consideration. Distal bowel obstruction cannot be excluded on today's limited study. Dedicated abdominal imaging could be performed for further evaluation if clinically warranted. Signed: Lauren Royal Verified Date/Time: 07/22/2017 04:48:05 Reading Location: [facility]013[facility] Consult Reading Room RAD, CHEST, 1 VIEW, NON [id number] 04:47: 00Reason for exam:->s/p TEVAR with linesShould this be performed at the bedside?->YesFINAL REPORT CLINICAL INDICATION: Postop Comparison: 07/21/2017 The cardiomediastinal contours are stable. Central pulmonary vascular congestion and bilateral parenchymal opacities are unchanged. There is no pneumothorax. Support lines are stable. Signed: Sarmad StevensonVerified Date/Time: 07/22/2017 04:47:13 Reading Location: [address] Reading Room POCT-GLUCOSE [id number] 01:30:00 Test Item Value Reference Range Comments POC-GLUCOSE METER (BEAKER) 203 mg/dL 70-110 TESTED AT [address] (test kocg=1343) [facility] [address] RAD, CHEST, 1 VIEW, NON [id number] 21:13:00Reason for exam:-> intubationShould this be performed at the bedside?->YesFINAL REPORT CLINICAL INDICATION: Intubation Comparison: Same dated at 1947 hours The tip of an endotracheal tube overlies trachea at the inferior margin of the clavicles. The cardiomediastinal contours are stable. Central pulmonary vascular congestion and bilateral parenchymalopacities are unchanged. There is no pneumothorax. Support lines are otherwise stable. The stomach is distended with gas despite the presence of an enteric tube. Signed: Sarmad Stevenson VerifiedDate/Time: 07/21/2017 21:13:02 Reading Location: [address] Reading Room RAD, CHEST, 1 VIEW, NON [id number] 20:08:00Reason for exam:->endotracheal tube malpositionShould this be performed at the bedside?- >YesFINAL REPORT CLINICAL INDICATION: Endotracheal tube position Comparison: Same date at 0410 hours The patient is rotated to the right. The tip of an endotracheal tube overlies the trachea above the bhavana at the level of the proximal to mid clavicular heads. The cardiomediastinal contours are stable. Central pulmonary vascular congestion has worsened, as has diffuse interstitial opacities and patchy bibasilar airspace opacification, an appearance which could reflect some combination of atelectasis and edema. Pneumonitis should be excluded clinically. There is no pneumothorax.Support lines are otherwise stable. Signed: Sarmad Stevenson MDReport Verified Date/Time: 07/21/2017 20:08:49 Reading Location: [address] Reading Room [id number] 05:34:00 Test Item Value Reference Range Comments PHOSPHORUS (BEAKER) (test erht=498) 3.3 mg/dL 2.3-4.7 [id number] 05:34:00 Test Item Value Reference Range Comments MAGNESIUM (BEAKER) (test zagf=714) 2.4 mg/dL 1.6-2.6 BASIC METABOLIC [id number] 05:34:00 Test Item Value Reference Range Comments SODIUM (BEAKER) (test 150 meq/L 136-145 fqrl=803) POTASSIUM (BEAKER) (test 3.6 meq/L 3.5-5.1 cfkb=728) CHLORIDE (BEAKER) (test 113 meq/L 98-107 mghd=632) CO2 (BEAKER) (test 28 meq/L 22-29 weev=638) BLOOD UREA NITROGEN 37 mg/dL 7-21 (BEAKER) (test xqzd=012) CREATININE (BEAKER) (test 1.42 mg/dL 0.57-1.25 wvlx=481) GLUCOSE RANDOM (BEAKER) 204 mg/dL 70-105 (test rosp=082) CALCIUM (BEAKER) (test 8.9 mg/dL 8.4-10.2 euyy=555) EGFR (BEAKER) (test 37 mL/min/1.73 sq m ESTIMATED GFR IS NOT mcil=1489) ACCURATE CREATININE CLEARANCE IN PREDICTING GLOMERULAR FILTRATION RATE. ESTIMATED GFR IS NOT APPLICABLE FOR DIALYSIS PATIENTS. [id number] 05:08:00 Test Item Value Reference Range Comments PARTIAL THROMBOPLASTIN TIME (BEAKER) (test 25.0 seconds 22.5-36.0 pbvr=736) PROTHROMBIN [id number] 05:07:00 Test Item Value Reference Range Comments PROTIME (BEAKER) (test vaor=598) 14.3 seconds 11.7-14.7 INR (BEAKER) (test pnyk=478) 1.1 <=5.9 RECOMMENDED COUMADIN/WARFARIN INR THERAPY RANGESSTANDARD DOSE: 2.0 - 3.0 Includes: PROPHYLAXIS forvenous thrombosis, systemic embolization; TREATMENT for venous thrombosis and/or pulmonary embolus.HIGH RISK: Target INR is 2.5-3.5 for patients with mechanical heart valves.BLOOD GAS, [id number] 05:06:00 Test Item Value Reference Range Comments PH ARTERIAL (BEAKER) (test thcp=889) 7.46 7.35-7.45 PCO2 ARTERIAL (BEAKER) (test ulry=241) 45 mmHg 35-45 PO2 ARTERIAL (BEAKER) (test vaks=759) 67 mmHg 80-90 O2 SATURATION ARTERIAL (BEAKER) (test wyvv=023) 93.7 % 96.0-97.0 HCO3 ARTERIAL (BEAKER) (test vpui=595) 31 mmol/L 21-29 BASE EXCESS ARTERIAL (BEAKER) (test jipb=663) 6.5 mmol/L -2.0-3.0 PATIENT TEMPERATURE (BEAKER) (test trmk=2257) 37.3 C FIO2 (BEAKER) (test hjml=2414) 50.0 % Daily ABG with morning labs while patient is intubated.CBC (HEMOGRAM ONLY)07-21 04:49:00 Test Item Value Reference Range Comments WHITE BLOOD CELL COUNT (BEAKER) (test tdxv=932) 8.0 K/ L 3.5-10.5 RED BLOOD CELL COUNT (BEAKER) (test gnpz=655) 3.38 M/ L 3.93-5.22 HEMOGLOBIN (BEAKER) (test aoij=318) 9.8 GM/DL 11.2-15.7 HEMATOCRIT (BEAKER) (test ndfj=743) 32.8 % 34.1-44.9 MEAN CORPUSCULAR VOLUME (BEAKER) (test djef=161) 97.0 fL 79.4-94.8 MEAN CORPUSCULAR HEMOGLOBIN (BEAKER) (test 29.0 pg 25.6-32.2 mjsd=842) MEAN CORPUSCULAR HEMOGLOBIN CONC (BEAKER) (test 29.9 GM/DL 32.2-35.5 zjod=251) RED CELL DISTRIBUTION WIDTH (BEAKER) (test 16.0 % 11.7-14.4 ymsf=175) PLATELET COUNT (BEAKER) (test ssce=503) 185 K/CU MM 150-450 MEAN PLATELET VOLUME (BEAKER) (test xkta=234) 13.0 fL 9.4-12.3 NUCLEATED RED BLOOD CELLS (BEAKER) (test 0 /100 WBC 0-0 nsvq=799) RAD, CHEST, 1 VIEW, NON [id number] 04:30:00Reason for exam:->s/p TEVAR with linesShould this be performed at the bedside?->YesFINAL REPORT CLINICAL INDICATION: Postop Comparison: 07/20/2017 The cardiomediastinal contours are stable. Bilateral parenchymal opacities are similar within variation of acquisition technique. There is no pneumothorax. Support lines are stable. Signed: Sarmad Stevenson Verified Date/Time: 07/21/2017 04:30:10 Reading Location: [address] Reading Room POCT- GLUCOSE [id number] 18:53:00 Test Item Value Reference Range Comments POC-GLUCOSE METER (BEAKER) 159 mg/dL 70-110 TESTED AT [address] (test jirj=4336) [facility] [address] POCT-GLUCOSE [id number] 14:00:00 Test Item Value Reference Range Comments POC-GLUCOSE METER (BEAKER) 165 mg/dL 70-110 TESTED AT [facility] [address] [facility] (test xtzs=8731) [facility] [address] TSH/FREE T4 IF [id number] 06:13:00 Test Item Value Reference Range Comments THYROID STIMULATING HORMONE (BEAKER) (test 1.13 uIU/mL 0.35-4.94 kpkc=571) BLOOD GAS, [id number] 05:09:00 Test Item Value Reference Range Comments PH ARTERIAL (BEAKER) (test camr=318) 7.48 7.35-7.45 PCO2 ARTERIAL (BEAKER) (test vzvz=873) 44 mmHg 35-45 PO2 ARTERIAL (BEAKER) (test wwoe=294) 72 mmHg 80-90 O2 SATURATION ARTERIAL (BEAKER) (test gfsv=966) 95.1 % 96.0-97.0 HCO3 ARTERIAL (BEAKER) (test zafz=829) 32 mmol/L 21-29 BASE EXCESS ARTERIAL (BEAKER) (test kvvt=600) 7.7 mmol/L -2.0-3.0 PATIENT TEMPERATURE (BEAKER) (test oiyh=3335) 37.5 C FIO2 (BEAKER) (test nqly=6104) 50.0 % Daily ABG with morning labs while patient is intubated.RAD, CHEST, 1 VIEW, NON [id number] 04:59:00Reason for exam:->s/p TEVAR with linesShould this be performed at the bedside?->YesFINAL REPORT CLINICAL INDICATION: Postop Comparison: 07/19/2017 The patient is rotated to the right. The cardiomediastinal contours are stable. Central pulmonary vascular congestion and right greater than left parenchymal opacities are similar within variation of acquisition technique. There is no pneumothorax. Support lines are stable. Signed: Sarmad Stevenson MDReport Verified Date/Time: 07/20/2017 04:59:27 Reading Location: [address] Reading Room [id number] 04:41 :00 Test Item Value Reference Range Comments PHOSPHORUS (BEAKER) (test gjzq=191) 2.8 mg/dL 2.3-4.7 [id number] 04:41:00 Test Item Value Reference Range Comments MAGNESIUM (BEAKER) (test mcge=171) 2.3 mg/dL 1.6-2.6 BASIC METABOLIC [id number] 04:41:00 Test Item Value Reference Range Comments SODIUM (BEAKER) (test 152 meq/L 136-145 tazj=858) POTASSIUM (BEAKER) (test 3.3 meq/L 3.5-5.1 mcwm=977) CHLORIDE (BEAKER) (test 113 meq/L 98-107 oafg=065) CO2 (BEAKER) (test 30 meq/L 22-29 uhin=383) BLOOD UREA NITROGEN 35 mg/dL 7-21 (BEAKER) (test bdij=728) CREATININE (BEAKER) (test 1.37 mg/dL 0.57-1.25 jgmz=168) GLUCOSE RANDOM (BEAKER) 154 mg/dL 70-105 (test hpre=528) CALCIUM (BEAKER) (test 9.1 mg/dL 8.4-10.2 wksl=253) EGFR (BEAKER) (test 39 mL/min/1.73 sq m ESTIMATED GFR IS NOT tcwg=2020) ACCURATE CREATININE CLEARANCE IN PREDICTING GLOMERULAR FILTRATION RATE. ESTIMATED GFR IS NOT APPLICABLE FOR DIALYSIS PATIENTS. [id number] 04:21:00 Test Item Value Reference Range Comments PARTIAL THROMBOPLASTIN TIME (BEAKER) (test 25.5 seconds 22.5-36.0 icze=098) PROTHROMBIN [id number] 04:20:00 Test Item Value Reference Range Comments PROTIME (BEAKER) (test sspy=832) 14.5 seconds 11.7-14.7 INR (BEAKER) (test nwkb=136) 1.1 <=5.9 RECOMMENDED COUMADIN/WARFARIN INR THERAPY RANGESSTANDARD DOSE: 2.0 - 3.0 Includes: PROPHYLAXIS forvenous thrombosis, systemic embolization; TREATMENT for venous thrombosis and/or pulmonary embolus.HIGH RISK: Target INR is 2.5-3.5 for patients with mechanical heart valves.CBC (HEMOGRAM ONLY)2017-07-20 04:13:00 Test Item Value Reference Range Comments WHITE BLOOD CELL COUNT (BEAKER) (test arwk=517) 9.4 K/ L 3.5-10.5 RED BLOOD CELL COUNT (BEAKER) (test sljz=404) 3.56 M/ L 3.93-5.22 HEMOGLOBIN (BEAKER) (test fhap=954) 10.1 GM/DL 11.2-15.7 HEMATOCRIT (BEAKER) (test qacr=790) 34.2 % 34.1-44.9 MEAN CORPUSCULAR VOLUME (BEAKER) (test bsar=935) 96.1 fL 79.4-94.8 MEAN CORPUSCULAR HEMOGLOBIN (BEAKER) (test 28.4 pg 25.6-32.2 ddis=270) MEAN CORPUSCULAR HEMOGLOBIN CONC (BEAKER) (test 29.5 GM/DL 32.2-35.5 egpt=608) RED CELL DISTRIBUTION WIDTH (BEAKER) (test 16.0 % 11.7-14.4 objl=870) PLATELET COUNT (BEAKER) (test twmw=946) 180 K/CU MM 150-450 MEAN PLATELET VOLUME (BEAKER) (test ayni=456) 12.0 fL 9.4-12.3 NUCLEATED RED BLOOD CELLS (BEAKER) (test 0 /100 WBC 0-0 karb=081) POCT-GLUCOSE [id number] 17:18:00 Test Item Value Reference Range Comments POC-GLUCOSE METER (BEAKER) 171 mg/dL 70-110 TESTED AT [address] (test tvpp=8037) [facility] [address] BLOOD GAS, [id number] 12:49:00 Test Item Value Reference Range Comments PH ARTERIAL (BEAKER) (test ywpx=076) 7.47 7.35-7.45 PCO2 ARTERIAL (BEAKER) (test urbr=795) 45 mmHg 35-45 PO2 ARTERIAL (BEAKER) (test qelt=578) 75 mmHg 80-90 O2 SATURATION ARTERIAL (BEAKER) (test ayjk=892) 95.8 % 96.0-97.0 HCO3 ARTERIAL (BEAKER) (test yjlz=179) 32 mmol/L 21-29 BASE EXCESS ARTERIAL (BEAKER) (test wllt=975) 7.9 mmol/L -2.0-3.0 PATIENT TEMPERATURE (BEAKER) (test gonh=3063) 37.1 C FIO2 (BEAKER) (test ylvi=8200) 50.0 % RAD, ABDOMEN/KUB, 1 VIEW [id number] 09:23:00Reason for exam:->NG tubeFINAL REPORT Abdomen four views supine 07/19/2017 9:22 AM CLINICAL INDICATION: NG tube COMPARISON: None available IMPRESSION: An enteric tube loops in the peripyloric region, with the side port projecting over the pylorus. There is no radiographic evidence of bowel obstruction. Subsegmental opacity in the right lung base may reflect atelectasis or pneumonia. There are no acute-appearing skeletal abnormalities. The descending thoracic aortic stent is present. Signed: Quinn Wiley Verified Date/Time: 07/19/2017 09: 23:13 Reading Location: [address] Consult Reading Room RAD, CHEST, 1 VIEW, NON [id number] 09:13:00Reason for exam:->s/p intubationFINAL REPORT Chest one view AP 07/19/2017 9:13 AM CLINICAL INDICATION: s/p intubation COMPARISON: 07/19/2017 at 0402 IMPRESSION: Support hardware is in satisfactory radiographic position. Cardiomediastinal contours are stable. There is mild pulmonary edema. Opacity in the right lower lobe is concerning for pneumonia. There is bibasilar atelectasis. Signed: Quinn Wiley Verified Date/Time: 07/19/2017 09:13:36 Reading Location: [facility] Consult Reading Room [id number] 04:27:00 Test Item Value Reference Range Comments PHOSPHORUS (BEAKER) (test mprp=262) 2.3 mg/dL 2.3-4.7 [id number] 04:27:00 Test Item Value Reference Range Comments MAGNESIUM (BEAKER) (test klxz=099) 2.1 mg/dL 1.6-2.6 BASIC METABOLIC [id number] 04:27:00 Test Item Value Reference Range Comments SODIUM (BEAKER) (test 151 meq/L 136-145 byrq=283) POTASSIUM (BEAKER) (test 3.7 meq/L 3.5-5.1 mfzz=061) CHLORIDE (BEAKER) (test 112 meq/L 98-107 crhb=773) CO2 (BEAKER) (test 29 meq/L 22-29 ghss=704) BLOOD UREA NITROGEN 30 mg/dL 7-21 (BEAKER) (test eojh=957) CREATININE (BEAKER) (test 1.28 mg/dL 0.57-1.25 pqat=717) GLUCOSE RANDOM (BEAKER) 170 mg/dL 70-105 (test wtmw=252) CALCIUM (BEAKER) (test 9.2 mg/dL 8.4-10.2 sbmq=500) EGFR (BEAKER) (test 42 mL/min/1.73 sq m ESTIMATED GFR IS NOT rwwf=4212) ACCURATE CREATININE CLEARANCE IN PREDICTING GLOMERULAR FILTRATION RATE. ESTIMATED GFR IS NOT APPLICABLE FOR DIALYSIS PATIENTS. [id number] 04:25:00 Test Item Value Reference Range Comments PARTIAL THROMBOPLASTIN TIME (BEAKER) (test 25.2 seconds 22.5-36.0 iffz=494) PROTHROMBIN [id number] 04:24:00 Test Item Value Reference Range Comments PROTIME (BEAKER) (test fmqu=949) 14.7 seconds 11.7-14.7 INR (BEAKER) (test igbd=380) 1.2 <=5.9 RECOMMENDED COUMADIN/WARFARIN INR THERAPY RANGESSTANDARD DOSE: 2.0 - 3.0 Includes: PROPHYLAXIS forvenous thrombosis, systemic embolization; TREATMENT for venous thrombosis and/or pulmonary embolus.HIGH RISK: Target INR is 2.5-3.5 for patients with mechanical heart valves.RAD, CHEST, 1 VIEW, NON [id number] 04:20:00Reason for exam:->s/p TEVAR with linesShould this be performed at the bedside?->YesFINAL REPORT CLINICAL INDICATION: Postop Comparison: 07/18/2017 The cardiomediastinal contours are stable. Central pulmonary vascular congestion and bilateral parenchymal opacities are similar within variation of acquisition technique. There is no pneumothorax. Support lines are stable. Signed: Sarmad Stevensonepjasbir Verified Date/Time: 04:20:17 Reading Location: [address] Reading Room 04:20 AMBLOOD GAS, [id number] 04:07:00 Test Item Value Reference Range Comments PH ARTERIAL (BEAKER) (test zroi=986) 7.52 7.35-7.45 PCO2 ARTERIAL (BEAKER) (test ytis=939) 40 mmHg 35-45 PO2 ARTERIAL (BEAKER) (test ukjm=457) 79 mmHg 80-90 O2 SATURATION ARTERIAL (BEAKER) (test dhmk=012) 96.6 % 96.0-97.0 HCO3 ARTERIAL (BEAKER) (test ugth=642) 32 mmol/L 21-29 BASE EXCESS ARTERIAL (BEAKER) (test abmx=265) 8.6 mmol/L -2.0-3.0 PATIENT TEMPERATURE (BEAKER) (test eyar=3161) 37.2 C FIO2 (BEAKER) (test wgqv=5431) 40.0 % Daily ABG with morning labs while patient is intubated.CBC (HEMOGRAM ONLY)07-19 04:02:00 Test Item Value Reference Range Comments WHITE BLOOD CELL COUNT (BEAKER) (test ykpj=178) 10.1 K/ L 3.5-10.5 RED BLOOD CELL COUNT (BEAKER) (test spav=666) 3.60 M/ L 3.93-5.22 HEMOGLOBIN (BEAKER) (test chbf=958) 10.4 GM/DL 11.2-15.7 HEMATOCRIT (BEAKER) (test lmui=967) 34.2 % 34.1-44.9 MEAN CORPUSCULAR VOLUME (BEAKER) (test nfkw=158) 95.0 fL 79.4-94.8 MEAN CORPUSCULAR HEMOGLOBIN (BEAKER) (test 28.9 pg 25.6-32.2 eslo=488) MEAN CORPUSCULAR HEMOGLOBIN CONC (BEAKER) (test 30.4 GM/DL 32.2-35.5 hgce=197) RED CELL DISTRIBUTION WIDTH (BEAKER) (test 16.1 % 11.7-14.4 ukua=798) PLATELET COUNT (BEAKER) (test kcmm=751) 182 K/CU MM 150-450 MEAN PLATELET VOLUME (BEAKER) (test qtky=406) 12.0 fL 9.4-12.3 NUCLEATED RED BLOOD CELLS (BEAKER) (test 0 /100 WBC 0-0 hujv=762) RAD, CHEST, 1 VIEW, NON [id number] 07:36:00Reason for exam:->s/p TEVAR with linesShould this be performed at the bedside?->YesFINAL REPORT Chest dated 07/18/2017 COMPARISON: July 17, 2017 Clinical Information: s/p TEVAR with lines Comment: Heart is enlarged. Pulmonary vasculature is indistinct. Interstitial disease is seen bilaterally suggestive of vascular congestion or pulmonary edema some pointimproved. No pleural effusion or pneumothorax is seen. Endotracheal tube, nasogastric tube, and right IJ central venous catheter remain in place. Impression: Interval improvement of interstitial pulmonary disease. Signed: Shailesh Cheema MDReport Verified Date/Time: 07/18/2017 07:36:42 Reading Location: [facility] C013Y CT Body Reading Room 07: 36 AMBLOOD GAS, [id number] 04:19:00 Test Item Value Reference Range Comments PH ARTERIAL (BEAKER) (test toll=305) 7.47 7.35-7.45 PCO2 ARTERIAL (BEAKER) (test ikoi=765) 49 mmHg 35-45 PO2 ARTERIAL (BEAKER) (test wnpk=855) 60 mmHg 80-90 O2 SATURATION ARTERIAL (BEAKER) (test qzke=567) 91.5 % 96.0-97.0 HCO3 ARTERIAL (BEAKER) (test yoba=812) 35 mmol/L 21-29 BASE EXCESS ARTERIAL (BEAKER) (test atok=240) 9.7 mmol/L -2.0-3.0 PATIENT TEMPERATURE (BEAKER) (test vire=3346) 37.5 C FIO2 (BEAKER) (test tpqj=4017) 40.0 % Daily ABG with morning labs while patient is intubated.[id number] 04: 13:00 Test Item Value Reference Range Comments PHOSPHORUS (BEAKER) (test iyaw=110) 2.2 mg/dL 2.3-4.7 [id number] 04:13:00 Test Item Value Reference Range Comments MAGNESIUM (BEAKER) (test smbe=475) 2.4 mg/dL 1.6-2.6 BASIC METABOLIC [id number] 04:13:00 Test Item Value Reference Range Comments SODIUM (BEAKER) (test 157 meq/L 136-145 nztp=158) POTASSIUM (BEAKER) (test 3.6 meq/L 3.5-5.1 cnlz=850) CHLORIDE (BEAKER) (test 116 meq/L 98-107 wbrg=350) CO2 (BEAKER) (test 31 meq/L 22-29 ewmx=610) BLOOD UREA NITROGEN 32 mg/dL 7-21 (BEAKER) (test zcys=407) CREATININE (BEAKER) (test 1.30 mg/dL 0.57-1.25 amzj=424) GLUCOSE RANDOM (BEAKER) 142 mg/dL 70-105 (test xxxi=558) CALCIUM (BEAKER) (test 9.3 mg/dL 8.4-10.2 czbc=110) EGFR (BEAKER) (test 42 mL/min/1.73 sq m ESTIMATED GFR IS NOT ixlk=4647) ACCURATE CREATININE CLEARANCE IN PREDICTING GLOMERULAR FILTRATION RATE. ESTIMATED GFR IS NOT APPLICABLE FOR DIALYSIS PATIENTS. [id number] 04:11:00 Test Item Value Reference Range Comments PARTIAL THROMBOPLASTIN TIME (BEAKER) (test 25.6 seconds 22.5-36.0 dcnf=659) PROTHROMBIN [id number] 04:10:00 Test Item Value Reference Range Comments PROTIME (BEAKER) (test odlv=595) 16.2 seconds 11.7-14.7 INR (BEAKER) (test feni=262) 1.3 <=5.9 RECOMMENDED COUMADIN/WARFARIN INR THERAPY RANGESSTANDARD DOSE: 2.0 - 3.0 Includes: PROPHYLAXIS forvenous thrombosis, systemic embolization; TREATMENT for venous thrombosis and/or pulmonary embolus.HIGH RISK: Target INR is 2.5-3.5 for patients with mechanical heart valves.CBC (HEMOGRAM ONLY)2017-07-18 03:59:00 Test Item Value Reference Range Comments WHITE BLOOD CELL COUNT (BEAKER) (test eqol=279) 7.7 K/ L 3.5-10.5 RED BLOOD CELL COUNT (BEAKER) (test xohu=509) 3.38 M/ L 3.93-5.22 HEMOGLOBIN (BEAKER) (test znzd=282) 9.9 GM/DL 11.2-15.7 HEMATOCRIT (BEAKER) (test rzwn=650) 32.2 % 34.1-44.9 MEAN CORPUSCULAR VOLUME (BEAKER) (test haib=974) 95.3 fL 79.4-94.8 MEAN CORPUSCULAR HEMOGLOBIN (BEAKER) (test 29.3 pg 25.6-32.2 pubi=324) MEAN CORPUSCULAR HEMOGLOBIN CONC (BEAKER) (test 30.7 GM/DL 32.2-35.5 vbql=304) RED CELL DISTRIBUTION WIDTH (BEAKER) (test 16.5 % 11.7-14.4 yfog=384) PLATELET COUNT (BEAKER) (test mosp=700) 154 K/CU MM 150-450 MEAN PLATELET VOLUME (BEAKER) (test fjhm=447) 11.6 fL 9.4-12.3 NUCLEATED RED BLOOD CELLS (BEAKER) (test 0 /100 WBC 0-0 fqbl=866) [id number] 19:40:00 Test Item Value Reference Range Comments POTASSIUM (BEAKER) (test muxy=178) 3.5 meq/L 3.5-5.1 POCT-GLUCOSE [id number] 18:35:00 Test Item Value Reference Range Comments POC-GLUCOSE METER (BEAKER) 95 mg/dL 70-110 TESTED AT [facility] [address] [facility] (test dgvs=5827) [facility] [address] [id number] 13:27:00 Test Item Value Reference Range Comments PHOSPHORUS (BEAKER) (test cyva=003) 2.8 mg/dL 2.3-4.7 [id number] 13:27:00 Test Item Value Reference Range Comments MAGNESIUM (BEAKER) (test eazs=097) 2.5 mg/dL 1.6-2.6 COMPREHENSIVE METABOLIC [id number] 13:27:00 Test Item Value Reference Range Comments TOTAL PROTEIN (BEAKER) 6.9 gm/dL 6.0-8.3 (test aurq=931) ALBUMIN (BEAKER) (test 3.2 g/dL 3.5-5.0 ayrx=5961) ALKALINE PHOSPHATASE 47 U/L 40-150 (BEAKER) (test fzww=506) BILIRUBIN TOTAL (BEAKER) 1.1 mg/dL 0.2-1.2 (test jgnj=586) SODIUM (BEAKER) (test 157 meq/L 136-145 edcw=947) POTASSIUM (BEAKER) (test 3.3 meq/L 3.5-5.1 look=745) CHLORIDE (BEAKER) (test 114 meq/L 98-107 kkss=097) CO2 (BEAKER) (test 31 meq/L 22-29 coeo=357) BLOOD UREA NITROGEN 32 mg/dL 7-21 (BEAKER) (test pfug=260) CREATININE (BEAKER) (test 1.37 mg/dL 0.57-1.25 utbn=742) GLUCOSE RANDOM (BEAKER) 107 mg/dL 70-105 (test gnht=861) CALCIUM (BEAKER) (test 9.7 mg/dL 8.4-10.2 uibj=297) AST (SGOT) (BEAKER) (test 34 U/L 5-34 qkxl=114) ALT (SGPT) (BEAKER) (test 26 U/L 6-55 welu=704) EGFR (BEAKER) (test 39 mL/min/1.73 sq m ESTIMATED GFR IS NOT topy=0128) ACCURATE CREATININE CLEARANCE IN PREDICTING GLOMERULAR FILTRATION RATE. ESTIMATED GFR IS NOT APPLICABLE FOR DIALYSIS PATIENTS. RAD, CHEST, 1 VIEW, NON [id number] 07:13:00Reason for exam:->s/p TEVAR with linesShould this be performed at the bedside?->YesFINAL REPORT Chest one view AP 07/17/2017 7:13 AM CLINICAL INDICATION: s/p TEVAR with lines COMPARISON: 07/16/2017 IMPRESSION: Support hardware is unchanged in position. Cardiomediastinal contours are stable. There is mild pulmonary edema. Bibasilar opacities suggest atelectasis. Pneumonia should be excluded clinically. Signed: Quinn Wiley Verified Date/Time: 07/17 07:13:59 Reading Location: [facility] Radiology Reading Room [id number] 03:55:00 Test Item Value Reference Range Comments PHOSPHORUS (BEAKER) (test zost=304) 2.5 mg/dL 2.3-4.7 [id number] 03:55:00 Test Item Value Reference Range Comments MAGNESIUM (BEAKER) (test akqa=993) 2.2 mg/dL 1.6-2.6 BASIC METABOLIC [id number] 03:55:00 Test Item Value Reference Range Comments SODIUM (BEAKER) (test 155 meq/L 136-145 rlvr=474) POTASSIUM (BEAKER) (test 3.0 meq/L 3.5-5.1 gucx=389) CHLORIDE (BEAKER) (test 113 meq/L 98-107 zdyg=119) CO2 (BEAKER) (test 30 meq/L 22-29 jnkh=168) BLOOD UREA NITROGEN 32 mg/dL 7-21 (BEAKER) (test nymk=405) CREATININE (BEAKER) (test 1.38 mg/dL 0.57-1.25 lxqj=453) GLUCOSE RANDOM (BEAKER) 105 mg/dL 70-105 (test cqcq=101) CALCIUM (BEAKER) (test 9.6 mg/dL 8.4-10.2 znpz=376) EGFR (BEAKER) (test 39 mL/min/1.73 sq m ESTIMATED GFR IS NOT zhcm=7025) ACCURATE CREATININE CLEARANCE IN PREDICTING GLOMERULAR FILTRATION RATE. ESTIMATED GFR IS NOT APPLICABLE FOR DIALYSIS PATIENTS. CBC (HEMOGRAM ONLY)2017-07-17 03:51:00 Test Item Value Reference Range Comments WHITE BLOOD CELL COUNT (BEAKER) (test gkbu=549) 5.5 K/ L 3.5-10.5 RED BLOOD CELL COUNT (BEAKER) (test keun=154) 3.21 M/ L 3.93-5.22 HEMOGLOBIN (BEAKER) (test zxjp=602) 9.3 GM/DL 11.2-15.7 HEMATOCRIT (BEAKER) (test bcse=922) 29.4 % 34.1-44.9 MEAN CORPUSCULAR VOLUME (BEAKER) (test acdi=296) 91.6 fL 79.4-94.8 MEAN CORPUSCULAR HEMOGLOBIN (BEAKER) (test 29.0 pg 25.6-32.2 hexj=678) MEAN CORPUSCULAR HEMOGLOBIN CONC (BEAKER) (test 31.6 GM/DL 32.2-35.5 ncxg=931) RED CELL DISTRIBUTION WIDTH (BEAKER) (test 16.6 % 11.7-14.4 gxrw=988) PLATELET COUNT (BEAKER) (test bltx=635) 142 K/CU MM 150-450 MEAN PLATELET VOLUME (BEAKER) (test hoak=245) 11.5 fL 9.4-12.3 NUCLEATED RED BLOOD CELLS (BEAKER) (test 1 /100 WBC 0-0 uqgw=759) [id number] 03:49:00 Test Item Value Reference Range Comments PARTIAL THROMBOPLASTIN TIME (BEAKER) (test 28.5 seconds 22.5-36.0 ujtx=144) PROTHROMBIN TIME/[id number] 03:48:00 Test Item Value Reference Range Comments PROTIME (BEAKER) (test zwbr=290) 14.7 seconds 11.7-14.7 INR (BEAKER) (test aair=790) 1.2 <=5.9 RECOMMENDED COUMADIN/WARFARIN INR THERAPY RANGESSTANDARD DOSE: 2.0 - 3.0 Includes: PROPHYLAXIS forvenous thrombosis, systemic embolization; TREATMENT for venous thrombosis and/or pulmonary embolus.HIGH RISK: Target INR is 2.5-3.5 for patients with mechanical heart valves.BLOOD GAS, [id number] 03:28:00 Test Item Value Reference Range Comments PH ARTERIAL (BEAKER) (test liam=008) 7.49 7.35-7.45 PCO2 ARTERIAL (BEAKER) (test lsku=643) 43 mmHg 35-45 PO2 ARTERIAL (BEAKER) (test vdiq=905) 62 mmHg 80-90 O2 SATURATION ARTERIAL (BEAKER) (test gplt=957) 92.7 % 96.0-97.0 HCO3 ARTERIAL (BEAKER) (test zmtg=122) 32 mmol/L 21-29 BASE EXCESS ARTERIAL (BEAKER) (test fjnc=202) 8.2 mmol/L -2.0-3.0 PATIENT TEMPERATURE (BEAKER) (test krob=6376) 37.7 C FIO2 (BEAKER) (test qdau=1958) 40.0 % Daily ABG with morning labs while patient is intubated.HEPATIC FUNCTION [id number] 00:47:00 Test Item Value Reference Range Comments TOTAL PROTEIN (BEAKER) (test lenq=952) 6.6 gm/dL 6.0-8.3 ALBUMIN (BEAKER) (test gxxa=7600) 3.1 g/dL 3.5-5.0 BILIRUBIN TOTAL (BEAKER) (test ojzs=526) 1.0 mg/dL 0.2-1.2 BILIRUBIN DIRECT (BEAKER) (test ybbz=707) 0.7 mg/dL 0.1-0.5 ALKALINE PHOSPHATASE (BEAKER) (test naxj=736) 40 U/L 40-150 AST (SGOT) (BEAKER) (test fycx=909) 22 U/L 5-34 ALT (SGPT) (BEAKER) (test mgun=845) 22 U/L 6-55 PROTHROMBIN TIME/[id number] 00:35:00 Test Item Value Reference Range Comments PROTIME (BEAKER) (test koqb=461) 14.5 seconds 11.7-14.7 INR (BEAKER) (test gqyg=918) 1.1 <=5.9 RECOMMENDED COUMADIN/WARFARIN INR THERAPY RANGESSTANDARD DOSE: 2.0 - 3.0 Includes: PROPHYLAXIS forvenous thrombosis, systemic embolization; TREATMENT for venous thrombosis and/or pulmonary embolus.HIGH RISK: Target INR is 2.5-3.5 for patients with mechanical heart valves.CBC W/PLT COUNT & AUTO [id number] 00:33:00 Test Item Value Reference Range Comments WHITE BLOOD CELL COUNT (BEAKER) (test zpxz=306) 5.9 K/ L 3.5-10.5 RED BLOOD CELL COUNT (BEAKER) (test lpfh=971) 3.20 M/ L 3.93-5.22 HEMOGLOBIN (BEAKER) (test ejxz=351) 9.4 GM/DL 11.2-15.7 HEMATOCRIT (BEAKER) (test zhpm=780) 29.4 % 34.1-44.9 MEAN CORPUSCULAR VOLUME (BEAKER) (test zuxw=667) 91.9 fL 79.4-94.8 MEAN CORPUSCULAR HEMOGLOBIN (BEAKER) (test 29.4 pg 25.6-32.2 fghv=299) MEAN CORPUSCULAR HEMOGLOBIN CONC (BEAKER) (test 32.0 GM/DL 32.2-35.5 lpbw=519) RED CELL DISTRIBUTION WIDTH (BEAKER) (test 16.4 % 11.7-14.4 okkw=086) PLATELET COUNT (BEAKER) (test iytu=048) 136 K/CU MM 150-450 MEAN PLATELET VOLUME (BEAKER) (test blyv=745) 11.9 fL 9.4-12.3 NUCLEATED RED BLOOD CELLS (BEAKER) (test 1 /100 WBC 0-0 qyat=275) NEUTROPHILS RELATIVE PERCENT (BEAKER) (test 77 % elsn=715) LYMPHOCYTES RELATIVE PERCENT (BEAKER) (test 9 % sphu=091) MONOCYTES RELATIVE PERCENT (BEAKER) (test 8 % tirq=289) EOSINOPHILS RELATIVE PERCENT (BEAKER) (test 0 % weni=377) BASOPHILS RELATIVE PERCENT (BEAKER) (test 0 % hakh=527) NEUTROPHILS ABSOLUTE COUNT (BEAKER) (test 4.52 K/ L 1.56-6.13 tibf=052) LYMPHOCYTES ABSOLUTE COUNT (BEAKER) (test 0.53 K/ L 1.18-3.74 ugdw=344) MONOCYTES ABSOLUTE COUNT (BEAKER) (test 0.44 K/ L 0.24-0.36 xhkw=673) EOSINOPHILS ABSOLUTE COUNT (BEAKER) (test 0.01 K/ L 0.04-0.36 scxn=819) BASOPHILS ABSOLUTE COUNT (BEAKER) (test 0.00 K/ L 0.01-0.08 htqt=394) IMMATURE GRANULOCYTES-RELATIVE PERCENT (BEAKER) 6 % 0-1 (test gnrq=9536) POCT-GLUCOSE [id number] 16:59:00 Test Item Value Reference Range Comments POC-GLUCOSE METER (BEAKER) 103 mg/dL 70-110 TESTED AT [address] (test lhda=6996) [facility] [address] HEMOGLOBIN AND [id number] 14:35:00 Test Item Value Reference Range Comments HEMOGLOBIN (BEAKER) (test ssui=039) 9.3 GM/DL 11.2-15.7 HEMATOCRIT (BEAKER) (test acnt=826) 28.7 % 34.1-44.9 RAD, CHEST, 1 VIEW, NON [id number] 05:46:00Reason for exam:->s/p TEVAR with linesShould this be performed at the bedside?->YesFINAL REPORT EXAMINATION: AP PORTABLE CHEST RADIOGRAPH CLINICAL INDICATION: Intubated IMPRESSION: Compared with 07/15/2017 Support tube and catheter positions are unchanged. 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 The heart is enlarged but stable. Reticulonodular and streaky opacities are again noted in both lungs, grossly similar to the prior study allowing for differences in technique and positioning. No definite evidence of new lung consolidation or pneumothorax. In summary, no significant interval change. Signed: Lauren Royal MDReport Verified Date/Time: 07/16/2017 05:46:18 Reading Location: [address] Reading Room 05 :46 [id number] 04:34:00 Test Item Value Reference Range Comments PHOSPHORUS (BEAKER) (test uted=357) 2.0 mg/dL 2.3-4.7 [id number] 04:34:00 Test Item Value Reference Range Comments MAGNESIUM (BEAKER) (test nguj=080) 2.2 mg/dL 1.6-2.6 BASIC METABOLIC [id number] 04:34:00 Test Item Value Reference Range Comments SODIUM (BEAKER) (test 150 meq/L 136-145 gqfd=156) POTASSIUM (BEAKER) (test 3.5 meq/L 3.5-5.1 avxx=524) CHLORIDE (BEAKER) (test 113 meq/L 98-107 akel=350) CO2 (BEAKER) (test 29 meq/L 22-29 ceqv=372) BLOOD UREA NITROGEN 31 mg/dL 7-21 (BEAKER) (test wita=708) CREATININE (BEAKER) (test 1.53 mg/dL 0.57-1.25 razv=631) GLUCOSE RANDOM (BEAKER) 100 mg/dL 70-105 (test qcvt=686) CALCIUM (BEAKER) (test 9.3 mg/dL 8.4-10.2 qbla=624) EGFR (BEAKER) (test 34 mL/min/1.73 sq m ESTIMATED GFR IS NOT mmls=6910) ACCURATE CREATININE CLEARANCE IN PREDICTING GLOMERULAR FILTRATION RATE. ESTIMATED GFR IS NOT APPLICABLE FOR DIALYSIS PATIENTS. PROTHROMBIN [id number] 04:21:00 Test Item Value Reference Range Comments PROTIME (BEAKER) (test jzke=391) 15.4 seconds 11.7-14.7 INR (BEAKER) (test vjzw=510) 1.2 <=5.9 RECOMMENDED COUMADIN/WARFARIN INR THERAPY RANGESSTANDARD DOSE: 2.0 - 3.0 Includes: PROPHYLAXIS forvenous thrombosis, systemic embolization; TREATMENT for venous thrombosis and/or pulmonary embolus.HIGH RISK: Target INR is 2.5-3.5 for patients with mechanical heart valves.[id number] 04:21:00 Test Item Value Reference Range Comments PARTIAL THROMBOPLASTIN TIME (BEAKER) (test 30.1 seconds 22.5-36.0 efrp=332) CBC (HEMOGRAM ONLY)2017-07-16 04:19:00 Test Item Value Reference Range Comments WHITE BLOOD CELL COUNT (BEAKER) (test gldy=555) 5.3 K/ L 3.5-10.5 RED BLOOD CELL COUNT (BEAKER) (test uruq=431) 2.98 M/ L 3.93-5.22 HEMOGLOBIN (BEAKER) (test msvr=296) 8.8 GM/DL 11.2-15.7 HEMATOCRIT (BEAKER) (test viyw=527) 27.0 % 34.1-44.9 MEAN CORPUSCULAR VOLUME (BEAKER) (test rkfi=944) 90.6 fL 79.4-94.8 MEAN CORPUSCULAR HEMOGLOBIN (BEAKER) (test 29.5 pg 25.6-32.2 szse=528) MEAN CORPUSCULAR HEMOGLOBIN CONC (BEAKER) (test 32.6 GM/DL 32.2-35.5 vzla=078) RED CELL DISTRIBUTION WIDTH (BEAKER) (test 16.4 % 11.7-14.4 vibd=823) PLATELET COUNT (BEAKER) (test utkw=609) 125 K/CU MM 150-450 MEAN PLATELET VOLUME (BEAKER) (test hodg=141) 11.5 fL 9.4-12.3 NUCLEATED RED BLOOD CELLS (BEAKER) (test 1 /100 WBC 0-0 swlc=689) BLOOD GAS, [id number] 04:10:00 Test Item Value Reference Range Comments PH ARTERIAL (BEAKER) (test szup=366) 7.44 7.35-7.45 PCO2 ARTERIAL (BEAKER) (test cshh=058) 45 mmHg 35-45 PO2 ARTERIAL (BEAKER) (test yphz=280) 67 mmHg 80-90 O2 SATURATION ARTERIAL (BEAKER) (test afqo=951) 93.2 % 96.0-97.0 HCO3 ARTERIAL (BEAKER) (test ctfq=890) 30 mmol/L 21-29 BASE EXCESS ARTERIAL (BEAKER) (test nadw=240) 5.0 mmol/L -2.0-3.0 PATIENT TEMPERATURE (BEAKER) (test huvi=6363) 37.7 C FIO2 (BEAKER) (test dsms=0726) 55.0 % Daily ABG with morning labs while patient is intubated.POCT-GLUCOSE [id number] 04:09:00 Test Item Value Reference Range Comments POC-GLUCOSE METER (BEAKER) 105 mg/dL 70-110 TESTED AT [address] (test xhyu=3388) [facility] [address] POCT-GLUCOSE [id number] 04:09:00 Test Item Value Reference Range Comments POC-GLUCOSE METER (BEAKER) 98 mg/dL 70-110 TESTED AT [address] (test liqd=6352) [facility] [address] POCT-GLUCOSE [id number] 00:21:00 Test Item Value Reference Range Comments POC-GLUCOSE METER (BEAKER) 111 mg/dL 70-110 TESTED AT [address] (test myrh=4482) [facility] [address] POCT-GLUCOSE [id number] 20:18:00 Test Item Value Reference Range Comments POC-GLUCOSE METER (BEAKER) 84 mg/dL 70-110 TESTED AT [address] (test ekhd=1551) [facility] [address] POCT-GLUCOSE [id number] 18:31:00 Test Item Value Reference Range Comments POC-GLUCOSE METER (BEAKER) 83 mg/dL 70-110 TESTED AT [address] (test dcvy=6999) [facility] [address] POCT-GLUCOSE [id number] 15:52:00 Test Item Value Reference Range Comments POC-GLUCOSE METER (BEAKER) 97 mg/dL 70-110 TESTED AT [address] (test usjv=4708) [facility] [address] POCT-GLUCOSE [id number] 15:52:00 Test Item Value Reference Range Comments POC-GLUCOSE METER (BEAKER) 108 mg/dL 70-110 TESTED AT [address] (test wdlc=0503) [facility] [address] GLUCOSE-STAT [id number] 12:32:00 Test Item Value Reference Range Comments GLUCOSE RANDOM (BEAKER) (test fnsl=149) 90 mg/dL 70-110 HGB/HCT (H&H) - STAT [id number] 12:32:00 Test Item Value Reference Range Comments HEMOGLOBIN (BEAKER) (test tued=396) 10.2 g/dL 12.0-15.0 HEMATOCRIT (BEAKER) (test iazi=802) 30.0 % 36.0-45.0 POCT-GLUCOSE [id number] 11:08:00 Test Item Value Reference Range Comments POC-GLUCOSE METER (BEAKER) 109 mg/dL 70-110 TESTED AT [address] (test bies=1800) [place] [address] POCT-GLUCOSE [id number] 06:02:00 Test Item Value Reference Range Comments POC-GLUCOSE METER (BEAKER) 122 mg/dL 70-110 TESTED AT [address] (test guyg=8217) [place] [id number] BLOOD [id number] 05:01:00 Test Item Value Reference Range Comments CULTURE (BEAKER) (test urwv=5195) No growth in 5 days BASIC METABOLIC [id number] 04:44:00 Test Item Value Reference Range Comments SODIUM (BEAKER) (test 145 meq/L 136-145 jqvv=023) POTASSIUM (BEAKER) (test 3.9 meq/L 3.5-5.1 abne=491) CHLORIDE (BEAKER) (test 113 meq/L 98-107 fcjp=666) CO2 (BEAKER) (test 25 meq/L 22-29 clcy=078) BLOOD UREA NITROGEN 34 mg/dL 7-21 (BEAKER) (test rrjy=348) CREATININE (BEAKER) (test 1.82 mg/dL 0.57-1.25 wckg=602) GLUCOSE RANDOM (BEAKER) 113 mg/dL 70-105 (test toqv=634) CALCIUM (BEAKER) (test 8.9 mg/dL 8.4-10.2 kcjl=472) EGFR (BEAKER) (test 28 mL/min/1.73 sq m ESTIMATED GFR IS NOT jggq=5452) ACCURATE CREATININE CLEARANCE IN PREDICTING GLOMERULAR FILTRATION RATE. ESTIMATED GFR IS NOT APPLICABLE FOR DIALYSIS PATIENTS. POCT-GLUCOSE [id number] 04:44:00 Test Item Value Reference Range Comments POC-GLUCOSE METER (BEAKER) 123 mg/dL 70-110 TESTED AT [facility] [address] (test uful=1998) [place] [address] [id number] 04:43:00 Test Item Value Reference Range Comments PHOSPHORUS (BEAKER) (test qrat=802) 2.8 mg/dL 2.3-4.7 [id number] 04:43:00 Test Item Value Reference Range Comments MAGNESIUM (BEAKER) (test nssj=021) 2.0 mg/dL 1.6-2.6 [id number] 04:27:00 Test Item Value Reference Range Comments PARTIAL THROMBOPLASTIN TIME (BEAKER) (test 28.6 seconds 22.5-36.0 xuin=835) PROTHROMBIN [id number] 04:26:00 Test Item Value Reference Range Comments PROTIME (BEAKER) (test suml=236) 15.8 seconds 11.7-14.7 INR (BEAKER) (test lihp=106) 1.3 <=5.9 RECOMMENDED COUMADIN/WARFARIN INR THERAPY RANGESSTANDARD DOSE: 2.0 - 3.0 Includes: PROPHYLAXIS forvenous thrombosis, systemic embolization; TREATMENT for venous thrombosis and/or pulmonary embolus.HIGH RISK: Target INR is 2.5-3.5 for patients with mechanical heart valves.BLOOD GAS, [id number] 04:12:00 Test Item Value Reference Range Comments PH ARTERIAL (BEAKER) (test mqjj=647) 7.34 7.35-7.45 PCO2 ARTERIAL (BEAKER) (test fevh=135) 52 mmHg 35-45 PO2 ARTERIAL (BEAKER) (test gpnc=765) 79 mmHg 80-90 O2 SATURATION ARTERIAL (BEAKER) (test nlkt=148) 94.3 % 96.0-97.0 HCO3 ARTERIAL (BEAKER) (test jyab=960) 27 mmol/L 21-29 BASE EXCESS ARTERIAL (BEAKER) (test griq=800) 1.2 mmol/L -2.0-3.0 PATIENT TEMPERATURE (BEAKER) (test gzwx=1324) 37.6 C FIO2 (BEAKER) (test zwbo=5051) 90.0 % Daily ABG with morning labs while patient is intubated.CBC (HEMOGRAM ONLY)07-15 04:12:00 Test Item Value Reference Range Comments WHITE BLOOD CELL COUNT (BEAKER) (test yaum=965) 7.7 K/ L 3.5-10.5 RED BLOOD CELL COUNT (BEAKER) (test lvwf=561) 2.70 M/ L 3.93-5.22 HEMOGLOBIN (BEAKER) (test ddlk=446) 8.0 GM/DL 11.2-15.7 HEMATOCRIT (BEAKER) (test mhee=545) 25.0 % 34.1-44.9 MEAN CORPUSCULAR VOLUME (BEAKER) (test hzzl=657) 92.6 fL 79.4-94.8 MEAN CORPUSCULAR HEMOGLOBIN (BEAKER) (test 29.6 pg 25.6-32.2 pjtj=876) MEAN CORPUSCULAR HEMOGLOBIN CONC (BEAKER) (test 32.0 GM/DL 32.2-35.5 ugtk=531) RED CELL DISTRIBUTION WIDTH (BEAKER) (test 15.9 % 11.7-14.4 eopn=851) PLATELET COUNT (BEAKER) (test pyfp=372) 132 K/CU MM 150-450 MEAN PLATELET VOLUME (BEAKER) (test glzf=719) 11.1 fL 9.4-12.3 NUCLEATED RED BLOOD CELLS (BEAKER) (test 1 /100 WBC 0-0 qoll=098) RAD, CHEST, 1 VIEW, NON [id number] 03:29:00Reason for exam:->s/p TEVAR with linesShould this be performed at the bedside?->YesFINAL REPORT RAD, CHEST, 1 VIEW, NON DEPT INDICATION: s/p TEVAR with lines COMPARISON: Prior day's exam FINDINGS: Portable frontal view of the chest. IMPRESSION: Support Lines: Stable. Lungs and pleura: Increasing interstitial and alveolar edema. No significant effusion. No pneumothorax.Heart and mediastinum: Stable contours. Stable surgical changes.Additional findings: None. Signed: JR Guzman Robert MDReport Verified Date/Time: 07/15/2017 03:29:41 Reading Location: [address] Reading Room POCT- GLUCOSE [id number] 02:23:00 Test Item Value Reference Range Comments POC-GLUCOSE METER (BEAKER) 142 mg/dL 70-110 TESTED AT [address] (test wgjm=2125) [place] [id number] POCT-GLUCOSE [id number] 23:51:00 Test Item Value Reference Range Comments POC-GLUCOSE METER (BEAKER) 141 mg/dL 70-110 TESTED AT [address] (test rdtl=4022) [place] [id number] POCT-GLUCOSE [id number] 21:59:00 Test Item Value Reference Range Comments POC-GLUCOSE METER (BEAKER) 133 mg/dL 70-110 TESTED AT [address] (test hpjr=7657) [place] [address] POCT-GLUCOSE [id number] 19:55:00 Test Item Value Reference Range Comments POC-GLUCOSE METER (BEAKER) 138 mg/dL 70-110 TESTED AT [address] (test fbix=7643) [place] [address] HEMOGLOBIN AND [id number] 18:42:00 Test Item Value Reference Range Comments HEMOGLOBIN (BEAKER) (test fpuj=011) 8.3 GM/DL 11.2-15.7 HEMATOCRIT (BEAKER) (test zmjr=507) 25.8 % 34.1-44.9 POCT-GLUCOSE [id number] 18:23:00 Test Item Value Reference Range Comments POC-GLUCOSE METER (BEAKER) 143 mg/dL 70-110 TESTED AT [address] (test hiid=1963) [place] [id number] POCT-GLUCOSE [id number] 16:11:00 Test Item Value Reference Range Comments POC-GLUCOSE METER (BEAKER) 141 mg/dL 70-110 TESTED AT [address] (test ueif=0963) [place] [address] POCT-GLUCOSE [id number] 14:10:00 Test Item Value Reference Range Comments POC-GLUCOSE METER (BEAKER) 118 mg/dL 70-110 TESTED AT [address] (test nepl=0061) [place] [address] HEMOGLOBIN AND [id number] 13:16:00 Test Item Value Reference Range Comments HEMOGLOBIN (BEAKER) (test cqbo=301) 8.9 GM/DL 11.2-15.7 HEMATOCRIT (BEAKER) (test dmyv=954) 28.4 % 34.1-44.9 POCT-GLUCOSE [id number] 13:04:00 Test Item Value Reference Range Comments POC-GLUCOSE METER (BEAKER) 139 mg/dL 70-110 TESTED AT [address] (test hfkg=3633) [place] [address] SPUTUM CULTURE + GRAM [id number] 12:21:00 Test Item Value Reference Range Comments CULTURE (BEAKER) (test 3+ Normal respiratory ambreen iibt=5087) present GRAM STAIN RESULT (BEAKER) 1+ WBCs (test yonz=7090) GRAM STAIN RESULT (BEAKER) 0-5 epithelial cells (test brnv=28905) GRAM STAIN RESULT (BEAKER) <1+ gram positive rods (test gjom=97021) GRAM STAIN RESULT (BEAKER) <1+ gram positive cocci in pairs (test vlqh=757448) POCT-GLUCOSE [id number] 12:05:00 Test Item Value Reference Range Comments POC-GLUCOSE METER (BEAKER) 98 mg/dL 70-110 TESTED AT [address] (test oqxu=9244) [place] [address] POCT-GLUCOSE [id number] 10:14:00 Test Item Value Reference Range Comments POC-GLUCOSE METER (BEAKER) 108 mg/dL 70-110 TESTED AT [address] (test zrdn=6170) [place] [address] POCT-GLUCOSE [id number] 08:06:00 Test Item Value Reference Range Comments POC-GLUCOSE METER (BEAKER) 115 mg/dL 70-110 TESTED AT [address] (test pnnr=4369) [place] [address] RAD, CHEST, 1 VIEW, NON [id number] 07:45:00Reason for exam:->s/p TEVAR with linesShould this be performed at the bedside?->YesFINAL REPORT Chest, 1 view Clinical history: s/p TEVAR with lines Comparison: 07/13/2017 Discussion: The support hardware appears in appropriate positions. There is no pneumothorax or significant pleural effusion. Worsening bilateral parenchymal opacities may represent wires main pulmonary edema or pneumonia. The cardiac silhouette is enlarged with aneurysmal dilatation of thethoracic aorta and postsurgical change. Signed: Rayo Whitt MDReport Verified Date/Time: 07/14/2017 07:45:16 Reading Location: [facility] [id number] Ortho Consult Reading Room POCT- GLUCOSE [id number] 06:00:00 Test Item Value Reference Range Comments POC-GLUCOSE METER (BEAKER) 132 mg/dL 70-110 TESTED AT [facility] [address] [facility] (test jmlw=8120) [facility] [address] CBC (HEMOGRAM ONLY)2017-07-14 05:27:00 Test Item Value Reference Range Comments WHITE BLOOD CELL COUNT (BEAKER) (test rmyy=172) 11.5 K/ L 3.5-10.5 RED BLOOD CELL COUNT (BEAKER) (test oajy=034) 2.92 M/ L 3.93-5.22 HEMOGLOBIN (BEAKER) (test jcbf=669) 8.6 GM/DL 11.2-15.7 HEMATOCRIT (BEAKER) (test httx=795) 27.0 % 34.1-44.9 MEAN CORPUSCULAR VOLUME (BEAKER) (test tijh=225) 92.5 fL 79.4-94.8 MEAN CORPUSCULAR HEMOGLOBIN (BEAKER) (test 29.5 pg 25.6-32.2 gwvw=721) MEAN CORPUSCULAR HEMOGLOBIN CONC (BEAKER) (test 31.9 GM/DL 32.2-35.5 zmpr=861) RED CELL DISTRIBUTION WIDTH (BEAKER) (test 15.9 % 11.7-14.4 aags=424) PLATELET COUNT (BEAKER) (test vzbn=599) 177 K/CU MM 150-450 MEAN PLATELET VOLUME (BEAKER) (test qahb=406) 11.3 fL 9.4-12.3 NUCLEATED RED BLOOD CELLS (BEAKER) (test 0 /100 WBC 0-0 jnsi=845) BASIC METABOLIC [id number] 04:59:00 Test Item Value Reference Range Comments SODIUM (BEAKER) (test 147 meq/L 136-145 ngqk=272) POTASSIUM (BEAKER) (test 4.6 meq/L 3.5-5.1 lyog=987) CHLORIDE (BEAKER) (test 116 meq/L 98-107 oqcc=485) CO2 (BEAKER) (test 25 meq/L 22-29 pyed=173) BLOOD UREA NITROGEN 36 mg/dL 7-21 (BEAKER) (test fwon=586) CREATININE (BEAKER) (test 2.11 mg/dL 0.57-1.25 qulw=484) GLUCOSE RANDOM (BEAKER) 121 mg/dL 70-105 (test ibjv=340) CALCIUM (BEAKER) (test 8.5 mg/dL 8.4-10.2 hpal=290) EGFR (BEAKER) (test 24 mL/min/1.73 sq m ESTIMATED GFR IS NOT eavx=3052) ACCURATE CREATININE CLEARANCE IN PREDICTING GLOMERULAR FILTRATION RATE. ESTIMATED GFR IS NOT APPLICABLE FOR DIALYSIS PATIENTS. BLOOD GAS, [id number] 04:43:00 Test Item Value Reference Range Comments PH ARTERIAL (BEAKER) (test zrjp=271) 7.25 7.35-7.45 PCO2 ARTERIAL (BEAKER) (test idgj=904) 57 mmHg 35-45 PO2 ARTERIAL (BEAKER) (test fftl=616) 63 mmHg 80-90 O2 SATURATION ARTERIAL (BEAKER) (test wdtl=912) 86.8 % 96.0-97.0 HCO3 ARTERIAL (BEAKER) (test vbpx=468) 24 mmol/L 21-29 BASE EXCESS ARTERIAL (BEAKER) (test qmtt=467) -3.4 mmol/L -2.0-3.0 PATIENT TEMPERATURE (BEAKER) (test njbd=7900) 37.6 C FIO2 (BEAKER) (test uwih=6489) 100.0 % Daily ABG with morning labs while patient is intubated.[id number] 04:38:00 Test Item Value Reference Range Comments PARTIAL THROMBOPLASTIN TIME (BEAKER) (test 28.6 seconds 22.5-36.0 qibr=556) PROTHROMBIN TIME/[id number] 04:37:00 Test Item Value Reference Range Comments PROTIME (BEAKER) (test yszv=413) 15.3 seconds 11.7-14.7 INR (BEAKER) (test whgx=808) 1.2 <=5.9 RECOMMENDED COUMADIN/WARFARIN INR THERAPY RANGESSTANDARD DOSE: 2.0 - 3.0 Includes: PROPHYLAXIS forvenous thrombosis, systemic embolization; TREATMENT for venous thrombosis and/or pulmonary embolus.HIGH RISK: Target INR is 2.5-3.5 for patients with mechanical heart valves.[id number] 04:36:00 Test Item Value Reference Range Comments PHOSPHORUS (BEAKER) (test mtyp=386) 3.5 mg/dL 2.3-4.7 [id number] 04:36:00 Test Item Value Reference Range Comments MAGNESIUM (BEAKER) (test kawv=468) 1.7 mg/dL 1.6-2.6 POCT-GLUCOSE [id number] 04:11:00 Test Item Value Reference Range Comments POC-GLUCOSE METER (BEAKER) 136 mg/dL 70-110 TESTED AT [address] (test pogo=9958) [facility] [address] POCT-GLUCOSE [id number] 04:10:00 Test Item Value Reference Range Comments POC-GLUCOSE METER (BEAKER) 132 mg/dL 70-110 TESTED AT [address] (test henf=2913) [facility] [address] POCT-GLUCOSE [id number] 23:58:00 Test Item Value Reference Range Comments POC-GLUCOSE METER (BEAKER) 143 mg/dL 70-110 TESTED AT [address] (test odgd=8292) [facility] [address] POCT-GLUCOSE [id number] 23:29:00 Test Item Value Reference Range Comments POC-GLUCOSE METER (BEAKER) 137 mg/dL 70-110 TESTED AT [address] (test zhxh=3282) [facility] [address] POCT-GLUCOSE [id number] 22:04:00 Test Item Value Reference Range Comments POC-GLUCOSE METER (BEAKER) 144 mg/dL 70-110 TESTED AT [address] (test bbsk=2926) [facility] [address] POCT-GLUCOSE [id number] 22:04:00 Test Item Value Reference Range Comments POC-GLUCOSE METER (BEAKER) 135 mg/dL 70-110 TESTED AT [address] (test xphg=9452) [facility] [address] POCT-GLUCOSE [id number] 20:31:00 Test Item Value Reference Range Comments POC-GLUCOSE METER (BEAKER) 151 mg/dL 70-110 TESTED AT [address] (test tupe=8236) [facility] [address] POCT-GLUCOSE [id number] 19:10:00 Test Item Value Reference Range Comments POC-GLUCOSE METER (BEAKER) 128 mg/dL 70-110 TESTED AT [address] (test fhyu=2120) [place] [address] [id number] 18:46:00 Test Item Value Reference Range Comments POTASSIUM (BEAKER) (test yael=347) 4.8 meq/L 3.5-5.1 HEMOGLOBIN AND [id number] 18:19:00 Test Item Value Reference Range Comments HEMOGLOBIN (BEAKER) (test pyom=323) 9.8 GM/DL 11.2-15.7 HEMATOCRIT (BEAKER) (test udxj=106) 30.1 % 34.1-44.9 POCT-GLUCOSE [id number] 18:14:00 Test Item Value Reference Range Comments POC-GLUCOSE METER (BEAKER) 139 mg/dL 70-110 TESTED AT [address] (test rgcb=4423) [place] [id number] POCT-GLUCOSE [id number] 18:14:00 Test Item Value Reference Range Comments POC-GLUCOSE METER (BEAKER) 127 mg/dL 70-110 TESTED AT [address] (test wwvr=5930) [place] [id number] POCT-GLUCOSE [id number] 16:14:00 Test Item Value Reference Range Comments POC-GLUCOSE METER (BEAKER) 82 mg/dL 70-110 TESTED AT [address] (test fsqj=3092) [place] [id number] BLOOD GAS, [id number] 14:20:00 Test Item Value Reference Range Comments PH ARTERIAL (BEAKER) (test sslr=152) 7.24 7.35-7.45 PCO2 ARTERIAL (BEAKER) (test yhly=358) 57 mmHg 35-45 PO2 ARTERIAL (BEAKER) (test pqwi=110) 58 mmHg 80-90 O2 SATURATION ARTERIAL (BEAKER) (test wsda=181) 86.6 % 96.0-97.0 HCO3 ARTERIAL (BEAKER) (test fsyd=500) 24 mmol/L 21-29 BASE EXCESS ARTERIAL (BEAKER) (test knfi=188) -4.1 mmol/L -2.0-3.0 PATIENT TEMPERATURE (BEAKER) (test isbg=3358) 36.1 C FIO2 (BEAKER) (test owep=3921) 100.0 % POCT-GLUCOSE [id number] 14:18:00 Test Item Value Reference Range Comments POC-GLUCOSE METER (BEAKER) 107 mg/dL 70-110 TESTED AT [address] (test ddya=6895) [place] [address] POCT-GLUCOSE [id number] 13:22:00 Test Item Value Reference Range Comments POC-GLUCOSE METER (BEAKER) 110 mg/dL 70-110 TESTED AT [address] (test mavg=2118) [place] [id number] BLOOD GAS, [id number] 12:11:00 Test Item Value Reference Range Comments PH ARTERIAL (BEAKER) (test oqhz=411) 7.23 7.35-7.45 PCO2 ARTERIAL (BEAKER) (test rdux=953) 57 mmHg 35-45 PO2 ARTERIAL (BEAKER) (test djcs=090) 57 mmHg 80-90 O2 SATURATION ARTERIAL (BEAKER) (test trrj=206) 84.5 % 96.0-97.0 HCO3 ARTERIAL (BEAKER) (test vzby=977) 24 mmol/L 21-29 BASE EXCESS ARTERIAL (BEAKER) (test bhec=437) -4.4 mmol/L -2.0-3.0 PATIENT TEMPERATURE (BEAKER) (test hhyq=1636) 36.7 C FIO2 (BEAKER) (test majb=8615) 90.0 % HEMOGLOBIN AND [id number] 12:07:00 Test Item Value Reference Range Comments HEMOGLOBIN (BEAKER) (test tzlg=040) 9.1 GM/DL 11.2-15.7 HEMATOCRIT (BEAKER) (test ujoy=704) 28.9 % 34.1-44.9 POCT-GLUCOSE [id number] 12:05:00 Test Item Value Reference Range Comments POC-GLUCOSE METER (BEAKER) 144 mg/dL 70-110 TESTED AT [address] (test dbps=7426) [place] [address] POCT-GLUCOSE [id number] 11:41:00 Test Item Value Reference Range Comments POC-GLUCOSE METER (BEAKER) 134 mg/dL 70-110 TESTED AT [address] (test ivts=3153) [place] [address] POCT-GLUCOSE [id number] 10:36:00 Test Item Value Reference Range Comments POC-GLUCOSE METER (BEAKER) 179 mg/dL 70-110 TESTED AT [address] (test ubnz=3731) [facility] [address] [id number] 10:25:00 Test Item Value Reference Range Comments MAGNESIUM (BEAKER) (test 1.8 mg/dL 1.6-2.6 Specimen slightly hemolyzed tygy=821) [id number] 10:25:00 Test Item Value Reference Range Comments PHOSPHORUS (BEAKER) (test 3.6 mg/dL 2.3-4.7 Specimen slightly hemolyzed oxzn=495) BASIC METABOLIC [id number] 10:25:00 Test Item Value Reference Range Comments SODIUM (BEAKER) (test 140 meq/L 136-145 mnhg=435) POTASSIUM (BEAKER) (test 5.4 meq/L 3.5-5.1 Specimen slightly bcuy=736) hemolyzed CHLORIDE (BEAKER) (test 113 meq/L 98-107 xlhq=033) CO2 (BEAKER) (test 16 meq/L 22-29 oyen=819) BLOOD UREA NITROGEN 31 mg/dL 7-21 (BEAKER) (test jowv=773) CREATININE (BEAKER) (test 1.73 mg/dL 0.57-1.25 Specimen slightly tthi=640) hemolyzed GLUCOSE RANDOM (BEAKER) 97 mg/dL 70-105 (test hqnp=694) CALCIUM (BEAKER) (test 8.8 mg/dL 8.4-10.2 pcex=864) EGFR (BEAKER) (test 30 mL/min/1.73 sq m ESTIMATED GFR IS NOT lppc=6408) ACCURATE CREATININE CLEARANCE IN PREDICTING GLOMERULAR FILTRATION RATE. ESTIMATED GFR IS NOT APPLICABLE FOR DIALYSIS PATIENTS. POCT-GLUCOSE [id number] 10:01:00 Test Item Value Reference Range Comments POC-GLUCOSE METER (BEAKER) 177 mg/dL 70-110 TESTED AT [place] [id number] [facility] (test logi=1008) [facility] [address] PROTHROMBIN [id number] 09:48:00 Test Item Value Reference Range Comments PROTIME (BEAKER) (test jzls=561) 14.0 seconds 11.7-14.7 INR (BEAKER) (test nynr=719) 1.1 <=5.9 RECOMMENDED COUMADIN/WARFARIN INR THERAPY RANGESSTANDARD DOSE: 2.0 - 3.0 Includes: PROPHYLAXIS forvenous thrombosis, systemic embolization; TREATMENT for venous thrombosis and/or pulmonary embolus.HIGH RISK: Target INR is 2.5-3.5 for patients with mechanical heart valves.[id number] 09:48:00 Test Item Value Reference Range Comments PARTIAL THROMBOPLASTIN TIME (BEAKER) (test 26.0 seconds 22.5-36.0 ckvp=934) CBC (HEMOGRAM ONLY)2017-07-13 09:42:00 Test Item Value Reference Range Comments WHITE BLOOD CELL COUNT (BEAKER) (test kddi=490) 18.5 K/ L 3.5-10.5 RED BLOOD CELL COUNT (BEAKER) (test qzsq=163) 3.15 M/ L 3.93-5.22 HEMOGLOBIN (BEAKER) (test wtba=532) 9.2 GM/DL 11.2-15.7 HEMATOCRIT (BEAKER) (test mkxg=608) 30.9 % 34.1-44.9 MEAN CORPUSCULAR VOLUME (BEAKER) (test wequ=932) 98.1 fL 79.4-94.8 MEAN CORPUSCULAR HEMOGLOBIN (BEAKER) (test 29.2 pg 25.6-32.2 sssa=503) MEAN CORPUSCULAR HEMOGLOBIN CONC (BEAKER) (test 29.8 GM/DL 32.2-35.5 ltio=295) RED CELL DISTRIBUTION WIDTH (BEAKER) (test 15.2 % 11.7-14.4 bzgs=362) PLATELET COUNT (BEAKER) (test aliq=335) 297 K/CU MM 150-450 MEAN PLATELET VOLUME (BEAKER) (test ziay=372) 12.0 fL 9.4-12.3 NUCLEATED RED BLOOD CELLS (BEAKER) (test 0 /100 WBC 0-0 wedh=397) TSH/FREE T4 IF [id number] 09:16:00 Test Item Value Reference Range Comments THYROID STIMULATING HORMONE (BEAKER) (test 2.18 uIU/mL 0.35-4.94 kluv=372) POCT-GLUCOSE [id number] 09:16:00 Test Item Value Reference Range Comments POC-GLUCOSE METER (BEAKER) 168 mg/dL 70-110 TESTED AT [facility] [address] [facility] (test vsid=2416) [facility] [address] POCT-GLUCOSE [id number] 09:16:00 Test Item Value Reference Range Comments POC-GLUCOSE METER (BEAKER) 159 mg/dL 70-110 TESTED AT [facility] [address] [facility] (test ycgg=8251) [facility] [address] CBC W/PLT COUNT & AUTO [id number] 09:03:00 Test Item Value Reference Range Comments WHITE BLOOD CELL COUNT (BEAKER) (test hlch=558) 17.3 K/ L 3.5-10.5 RED BLOOD CELL COUNT (BEAKER) (test unle=606) 2.91 M/ L 3.93-5.22 HEMOGLOBIN (BEAKER) (test mioe=205) 8.6 GM/DL 11.2-15.7 HEMATOCRIT (BEAKER) (test dmzg=303) 28.2 % 34.1-44.9 MEAN CORPUSCULAR VOLUME (BEAKER) (test dsrl=846) 96.9 fL 79.4-94.8 MEAN CORPUSCULAR HEMOGLOBIN (BEAKER) (test 29.6 pg 25.6-32.2 jfpc=582) MEAN CORPUSCULAR HEMOGLOBIN CONC (BEAKER) (test 30.5 GM/DL 32.2-35.5 ivua=181) RED CELL DISTRIBUTION WIDTH (BEAKER) (test 15.3 % 11.7-14.4 soyj=698) PLATELET COUNT (BEAKER) (test ybvm=609) 253 K/CU MM 150-450 MEAN PLATELET VOLUME (BEAKER) (test pqgk=570) 11.5 fL 9.4-12.3 NUCLEATED RED BLOOD CELLS (BEAKER) (test 0 /100 WBC 0-0 ggap=253) NEUTROPHILS RELATIVE PERCENT (BEAKER) (test 80 % klgp=822) LYMPHOCYTES RELATIVE PERCENT (BEAKER) (test 8 % edtp=054) MONOCYTES RELATIVE PERCENT (BEAKER) (test 10 % raam=762) EOSINOPHILS RELATIVE PERCENT (BEAKER) (test 0 % zhxz=355) BASOPHILS RELATIVE PERCENT (BEAKER) (test 0 % fdxc=712) NEUTROPHILS ABSOLUTE COUNT (BEAKER) (test 13.90 K/ L 1.56-6.13 jqvf=386) LYMPHOCYTES ABSOLUTE COUNT (BEAKER) (test 1.38 K/ L 1.18-3.74 mchn=982) MONOCYTES ABSOLUTE COUNT (BEAKER) (test 1.69 K/ L 0.24-0.36 smcl=855) EOSINOPHILS ABSOLUTE COUNT (BEAKER) (test 0.00 K/ L 0.04-0.36 lqxn=050) BASOPHILS ABSOLUTE COUNT (BEAKER) (test 0.02 K/ L 0.01-0.08 nmly=602) IMMATURE GRANULOCYTES-RELATIVE PERCENT (BEAKER) 2 % 0-1 (test fjxs=4504) BASIC METABOLIC [id number] 09:02:00 Test Item Value Reference Range Comments SODIUM (BEAKER) (test 139 meq/L 136-145 xcyp=987) POTASSIUM (BEAKER) (test 5.4 meq/L 3.5-5.1 lydp=805) CHLORIDE (BEAKER) (test 114 meq/L 98-107 auvz=610) CO2 (BEAKER) (test 16 meq/L 22-29 pyab=185) BLOOD UREA NITROGEN 33 mg/dL 7-21 (BEAKER) (test pxzm=778) CREATININE (BEAKER) (test 1.91 mg/dL 0.57-1.25 bvmg=795) GLUCOSE RANDOM (BEAKER) 177 mg/dL 70-105 (test bbml=585) CALCIUM (BEAKER) (test 8.5 mg/dL 8.4-10.2 urme=296) EGFR (BEAKER) (test 27 mL/min/1.73 sq m ESTIMATED GFR IS NOT mgiq=6298) ACCURATE CREATININE CLEARANCE IN PREDICTING GLOMERULAR FILTRATION RATE. ESTIMATED GFR IS NOT APPLICABLE FOR DIALYSIS PATIENTS. [id number] 08:32:00 Test Item Value Reference Range Comments PARTIAL THROMBOPLASTIN TIME (BEAKER) (test 27.6 seconds 22.5-36.0 jbyt=390) [id number] 08:32:00 Test Item Value Reference Range Comments FIBRINOGEN LEVEL (BEAKER) (test igfq=029) 282 mg/dl 225-434 PROTHROMBIN [id number] 08:31:00 Test Item Value Reference Range Comments PROTIME (BEAKER) (test dglj=706) 14.7 seconds 11.7-14.7 INR (BEAKER) (test bgqw=466) 1.2 <=5.9 RECOMMENDED COUMADIN/WARFARIN INR THERAPY RANGESSTANDARD DOSE: 2.0 - 3.0 Includes: PROPHYLAXIS forvenous thrombosis, systemic embolization; TREATMENT for venous thrombosis and/or pulmonary embolus.HIGH RISK: Target INR is 2.5-3.5 for patients with mechanical heart valves.[id number] 08:30:00 Test Item Value Reference Range Comments PHOSPHORUS (BEAKER) (test acxl=597) 4.6 mg/dL 2.3-4.7 [id number] 08:30:00 Test Item Value Reference Range Comments MAGNESIUM (BEAKER) (test paaj=207) 1.7 mg/dL 1.6-2.6 BLOOD GAS, [id number] 08:25:00 Test Item Value Reference Range Comments PH ARTERIAL (BEAKER) (test ggok=981) 7.19 7.35-7.45 PCO2 ARTERIAL (BEAKER) (test rexr=617) 56 mmHg 35-45 PO2 ARTERIAL (BEAKER) (test bztc=943) 63 mmHg 80-90 O2 SATURATION ARTERIAL (BEAKER) (test omfh=219) 85.9 % 96.0-97.0 HCO3 ARTERIAL (BEAKER) (test osia=067) 21 mmol/L 21-29 BASE EXCESS ARTERIAL (BEAKER) (test kojv=809) -7.2 mmol/L -2.0-3.0 PATIENT TEMPERATURE (BEAKER) (test klbg=2620) 37.2 C FIO2 (BEAKER) (test gikd=2538) 70.0 % GLUCOSE-STAT [id number] 08:22:00 Test Item Value Reference Range Comments GLUCOSE RANDOM (BEAKER) (test tcxj=615) 176 mg/dL 70-110 HGB/HCT (H&H) - STAT [id number] 08:22:00 Test Item Value Reference Range Comments HEMOGLOBIN (BEAKER) (test pewq=205) 9.7 g/dL 12.0-15.0 HEMATOCRIT (BEAKER) (test mshd=233) 29.0 % 36.0-45.0 CALCIUM, [id number] 08:22:00 Test Item Value Reference Range Comments CALCIUM IONIZED (BEAKER) (test kyqy=910) 1.24 mmol/L 1.12-1.27 PH, BLOOD (BEAKER) (test wxgs=2711) 7.19 POTASSIUM-STAT [id number] 08:21:00 Test Item Value Reference Range Comments POTASSIUM (BEAKER) (test pafn=966) 5.2 meq/L 3.6-5.5 RAD, CHEST, 1 VIEW, NON [id number] 07:28:00Reason for exam:->s/p TEVAR with linesShould this be performed at the bedside?->YesFINAL REPORT TECHNIQUE: Single view of the chest. COMPARISON: 07/12/2017 11: 30 FINDINGS: Bilateral patchy interstitial and airspace opacities are stable. There are no large pleural effusions. No gross pneumothorax.No gross new lung parenchymal changes. Support lines and tubes are stable. IMPRESSION: 1. No significant interval change. Signed: Avinash Laceyeport Verified Date/Time: 07/13/2017 07:28:03 Reading Location: [address] Transitional Reading Room POCT- GLUCOSE [id number] 06:19:00 Test Item Value Reference Range Comments POC-GLUCOSE METER (BEAKER) 111 mg/dL 70-110 TESTED AT [address] (test rzax=2264) [facility] [address] BLOOD GAS, [id number] 04:09:00 Test Item Value Reference Range Comments PH ARTERIAL (BEAKER) (test eesy=764) 7.20 7.35-7.45 PCO2 ARTERIAL (BEAKER) (test qiep=862) 54 mmHg 35-45 PO2 ARTERIAL (BEAKER) (test loau=549) 76 mmHg 80-90 O2 SATURATION ARTERIAL (BEAKER) (test pxxi=837) 92.2 % 96.0-97.0 HCO3 ARTERIAL (BEAKER) (test vppa=404) 21 mmol/L 21-29 BASE EXCESS ARTERIAL (BEAKER) (test btrb=364) -7.3 mmol/L -2.0-3.0 PATIENT TEMPERATURE (BEAKER) (test racm=1773) 36.8 C FIO2 (BEAKER) (test fncw=6493) 60.0 % Daily ABG with morning labs while patient is intubated.POCT-GLUCOSE [id number] 04:03:00 Test Item Value Reference Range Comments POC-GLUCOSE METER (BEAKER) 133 mg/dL 70-110 TESTED AT [address] (test ekdm=2784) [facility] [address] POCT-GLUCOSE [id number] 04:03:00 Test Item Value Reference Range Comments POC-GLUCOSE METER (BEAKER) 160 mg/dL 70-110 TESTED AT [address] (test qlwx=5333) [facility] [address] POCT-GLUCOSE [id number] 21:12:00 Test Item Value Reference Range Comments POC-GLUCOSE METER (BEAKER) 211 mg/dL 70-110 TESTED AT [address] (test baey=0151) [facility] [address] POCT-GLUCOSE [id number] 21:12:00 Test Item Value Reference Range Comments POC-GLUCOSE METER (BEAKER) 247 mg/dL 70-110 TESTED AT [address] (test iaqu=4412) [facility] [address] GLUCOSE-STAT [id number] 18:39:00 Test Item Value Reference Range Comments GLUCOSE RANDOM (BEAKER) (test lvnf=747) 194 mg/dL 70-110 HGB/HCT (H&H) - STAT [id number] 18:39:00 Test Item Value Reference Range Comments HEMOGLOBIN (BEAKER) (test reir=256) 10.0 g/dL 12.0-15.0 HEMATOCRIT (BEAKER) (test ufqk=056) 29.0 % 36.0-45.0 PLATELET AGGREGATION: FUNCTION [id number] 17:10:00 Test Item Value Reference Range Comments WEAK ADP RESULT(BEAKER) (test 70 % 60-91 vuif=2745) PLATELET FUNCTION SCREEN 60-100% indicates normal INTERP (BEAKER) (test platelet function iixv=6872) [id number] (BEAKER) Romel Hamilton MD (electronic (test bsco=7482) signature) PLATELET COUNT AGG (BEAKER) 231 K/CU MM 150-450 (test sjuo=5721) BLOOD GAS, [id number] 14:20:00 Test Item Value Reference Range Comments PH ARTERIAL (BEAKER) (test dijz=238) 7.25 7.35-7.45 PCO2 ARTERIAL (BEAKER) (test dpkk=473) 55 mmHg 35-45 PO2 ARTERIAL (BEAKER) (test tnqs=039) 108 mmHg 80-90 O2 SATURATION ARTERIAL (BEAKER) (test anez=553) 97.2 % 96.0-97.0 HCO3 ARTERIAL (BEAKER) (test vxiw=714) 24 mmol/L 21-29 BASE EXCESS ARTERIAL (BEAKER) (test pzip=432) -4.1 mmol/L -2.0-3.0 PATIENT TEMPERATURE (BEAKER) (test rwqg=5838) 36.3 C FIO2 (BEAKER) (test ophr=7039) 60.0 % GLUCOSE-STAT [id number] 14:20:00 Test Item Value Reference Range Comments GLUCOSE RANDOM (BEAKER) (test svpr=945) 257 mg/dL 70-110 HGB/HCT (H&H) - STAT [id number] 14:20:00 Test Item Value Reference Range Comments HEMOGLOBIN (BEAKER) (test eauv=228) 9.5 g/dL 12.0-15.0 HEMATOCRIT (BEAKER) (test ksmj=440) 28.0 % 36.0-45.0 SODIUM NA-STAT [id number] 14:19:00 Test Item Value Reference Range Comments SODIUM (BEAKER) (test pgae=840) 135 meq/L 135-148 POTASSIUM-STAT [id number] 14:19:00 Test Item Value Reference Range Comments POTASSIUM (BEAKER) (test bajm=441) 4.7 meq/L 3.6-5.5 [id number] 12:29:00 Test Item Value Reference Range Comments PHOSPHORUS (BEAKER) (test baxn=811) 2.5 mg/dL 2.3-4.7 [id number] 12:29:00 Test Item Value Reference Range Comments MAGNESIUM (BEAKER) (test wcoh=080) 1.9 mg/dL 1.6-2.6 BASIC METABOLIC [id number] 12:29:00 Test Item Value Reference Range Comments SODIUM (BEAKER) (test 140 meq/L 136-145 fkpy=301) POTASSIUM (BEAKER) (test 4.6 meq/L 3.5-5.1 krrt=623) CHLORIDE (BEAKER) (test 110 meq/L 98-107 tetf=111) CO2 (BEAKER) (test 22 meq/L 22-29 ikqr=431) BLOOD UREA NITROGEN 26 mg/dL 7-21 (BEAKER) (test chzh=324) CREATININE (BEAKER) (test 1.22 mg/dL 0.57-1.25 ollh=067) GLUCOSE RANDOM (BEAKER) 207 mg/dL 70-105 (test wpzd=927) CALCIUM (BEAKER) (test 9.1 mg/dL 8.4-10.2 kpla=441) EGFR (BEAKER) (test 45 mL/min/1.73 sq m ESTIMATED GFR IS NOT yijx=7629) ACCURATE CREATININE CLEARANCE IN PREDICTING GLOMERULAR FILTRATION RATE. ESTIMATED GFR IS NOT APPLICABLE FOR DIALYSIS PATIENTS. [id number] 11:59:00 Test Item Value Reference Range Comments PARTIAL THROMBOPLASTIN TIME (BEAKER) (test 28.0 seconds 22.5-36.0 qymw=007) PROTHROMBIN [id number] 11:58:00 Test Item Value Reference Range Comments PROTIME (BEAKER) (test izyg=986) 14.9 seconds 11.7-14.7 INR (BEAKER) (test epvn=061) 1.2 <=5.9 RECOMMENDED COUMADIN/WARFARIN INR THERAPY RANGESSTANDARD DOSE: 2.0 - 3.0 Includes: PROPHYLAXIS forvenous thrombosis, systemic embolization; TREATMENT for venous thrombosis and/or pulmonary embolus.HIGH RISK: Target INR is 2.5-3.5 for patients with mechanical heart valves.CBC W/PLT COUNT & AUTO [id number] 11:42:00 Test Item Value Reference Range Comments WHITE BLOOD CELL COUNT (BEAKER) (test ecih=851) 8.3 K/ L 3.5-10.5 RED BLOOD CELL COUNT (BEAKER) (test hgbp=571) 3.51 M/ L 3.93-5.22 HEMOGLOBIN (BEAKER) (test fycu=415) 10.4 GM/DL 11.2-15.7 HEMATOCRIT (BEAKER) (test lnen=825) 34.1 % 34.1-44.9 MEAN CORPUSCULAR VOLUME (BEAKER) (test jekh=740) 97.2 fL 79.4-94.8 MEAN CORPUSCULAR HEMOGLOBIN (BEAKER) (test 29.6 pg 25.6-32.2 xkor=442) MEAN CORPUSCULAR HEMOGLOBIN CONC (BEAKER) (test 30.5 GM/DL 32.2-35.5 djhe=356) RED CELL DISTRIBUTION WIDTH (BEAKER) (test 14.8 % 11.7-14.4 omeq=006) PLATELET COUNT (BEAKER) (test yypq=376) 232 K/CU MM 150-450 MEAN PLATELET VOLUME (BEAKER) (test gscz=978) 11.4 fL 9.4-12.3 NUCLEATED RED BLOOD CELLS (BEAKER) (test 0 /100 WBC 0-0 hzfa=913) NEUTROPHILS RELATIVE PERCENT (BEAKER) (test 75 % ajmo=056) LYMPHOCYTES RELATIVE PERCENT (BEAKER) (test 16 % fwgl=900) MONOCYTES RELATIVE PERCENT (BEAKER) (test 6 % xoee=441) EOSINOPHILS RELATIVE PERCENT (BEAKER) (test 1 % kwcq=464) BASOPHILS RELATIVE PERCENT (BEAKER) (test 0 % krum=253) NEUTROPHILS ABSOLUTE COUNT (BEAKER) (test 6.26 K/ L 1.56-6.13 zowb=874) LYMPHOCYTES ABSOLUTE COUNT (BEAKER) (test 1.37 K/ L 1.18-3.74 vwud=225) MONOCYTES ABSOLUTE COUNT (BEAKER) (test 0.47 K/ L 0.24-0.36 tius=080) EOSINOPHILS ABSOLUTE COUNT (BEAKER) (test 0.09 K/ L 0.04-0.36 najc=367) BASOPHILS ABSOLUTE COUNT (BEAKER) (test 0.02 K/ L 0.01-0.08 bocb=213) IMMATURE GRANULOCYTES-RELATIVE PERCENT (BEAKER) 1 % 0-1 (test mpfi=9844) RAD, CHEST, 1 VIEW, NON [id number] 11:40:00Reason for exam:->Post- opShould this be performed at the bedside?->YesFINAL REPORT Chest one view. Clinical history: Post-op Comparison: July 12, 2017 Discussion: A frontal chest is provided. Cardiomediastinal contours are unchanged. ET is 4cm above the bhavana. A right IJ line projects over the SVC. Feeding tube tip projects over the gastric body. Another catheter projects over the right paraspinal region. A new vascular stent projects over the distal thoracic aorta. There is mild interstitial prominence, and subsegmental bibasilar atelectasis. No new consolidation identified. No pneumothorax, or significant effusion. Signed: Eleazar Shepardeport Verified Date/Time: 07/12/2017 11:40:25 Reading Location: [facility] Radiology Reading Room CALCIUM, [id number] 11:35:00 Test Item Value Reference Range Comments CALCIUM IONIZED (BEAKER) (test lqis=625) 1.28 mmol/L 1.12-1.27 PH, BLOOD (BEAKER) (test zxns=7454) 7.30 BLOOD GAS, [id number] 11:34:00 Test Item Value Reference Range Comments PH ARTERIAL (BEAKER) (test ixcr=700) 7.35 7.35-7.45 PCO2 ARTERIAL (BEAKER) (test utlt=251) 48 mmHg 35-45 PO2 ARTERIAL (BEAKER) (test zpvr=437) 54 mmHg 80-90 O2 SATURATION ARTERIAL (BEAKER) (test dsmq=679) 91.1 % 96.0-97.0 HCO3 ARTERIAL (BEAKER) (test ruks=622) 27 mmol/L 21-29 BASE EXCESS ARTERIAL (BEAKER) (test wwac=818) -0.5 mmol/L -2.0-3.0 PATIENT TEMPERATURE (BEAKER) (test ezgk=1856) 33.9 C FIO2 (BEAKER) (test esrh=4271) 60.0 % GLUCOSE-STAT [id number] 11:34:00 Test Item Value Reference Range Comments GLUCOSE RANDOM (BEAKER) (test nplr=620) 203 mg/dL 70-110 HGB/HCT (H&H) - STAT [id number] 11:34:00 Test Item Value Reference Range Comments HEMOGLOBIN (BEAKER) (test egdx=542) 11.1 g/dL 12.0-15.0 HEMATOCRIT (BEAKER) (test nibt=430) 33.0 % 36.0-45.0 SODIUM NA-STAT [id number] 11:33:00 Test Item Value Reference Range Comments SODIUM (BEAKER) (test hshv=520) 137 meq/L 135-148 POTASSIUM-STAT [id number] 11:33:00 Test Item Value Reference Range Comments POTASSIUM (BEAKER) (test trfj=929) 4.4 meq/L 3.6-5.5 [id number] 10:07:00 Test Item Value Reference Range Comments ACTIVATED CLOTTING TIME 164 sec TESTED AT [facility] [address] (BEAKER) (test zrok=846) [place] [address] [id number] 10:07:00 Test Item Value Reference Range Comments ACTIVATED CLOTTING TIME 345 sec TESTED AT [place] [address] [address] (BEAKER) (test khhx=731) [place] [address] [id number] 10:06:00 Test Item Value Reference Range Comments ACTIVATED CLOTTING TIME 230 sec TESTED AT [place] [address] [address] (BEAKER) (test nygu=800) [place] [address] GLUCOSE-STAT [id number] 08:53:00 Test Item Value Reference Range Comments GLUCOSE RANDOM (BEAKER) (test kchy=751) 99 mg/dL 70-110 SODIUM NA-STAT [id number] 08:53:00 Test Item Value Reference Range Comments SODIUM (BEAKER) (test vfsl=158) 140 meq/L 135-148 POTASSIUM-STAT [id number] 08:53:00 Test Item Value Reference Range Comments POTASSIUM (BEAKER) (test ssba=627) 4.7 meq/L 3.6-5.5 HGB/HCT (H&H) - STAT [id number] 08:53:00 Test Item Value Reference Range Comments HEMOGLOBIN (BEAKER) (test ktbg=423) 12.1 g/dL 12.0-15.0 HEMATOCRIT (BEAKER) (test pvtj=334) 36.0 % 36.0-45.0 BLOOD GAS, [id number] 08:53:00 Test Item Value Reference Range Comments PH ARTERIAL (BEAKER) (test clii=351) 7.36 7.35-7.45 PCO2 ARTERIAL (BEAKER) (test soxe=249) 51 mmHg 35-45 PO2 ARTERIAL (BEAKER) (test pdzv=052) 110 mmHg 80-90 O2 SATURATION ARTERIAL (BEAKER) (test eoxv=747) 98.0 % 96.0-97.0 HCO3 ARTERIAL (BEAKER) (test audo=704) 29 mmol/L 21-29 BASE EXCESS ARTERIAL (BEAKER) (test zvzg=048) 1.9 mmol/L -2.0-3.0 PATIENT TEMPERATURE (BEAKER) (test dztp=5623) 35.5 C FIO2 (BEAKER) (test hlzr=4816) 70.0 % CALCIUM, [id number] 08:53:00 Test Item Value Reference Range Comments CALCIUM IONIZED (BEAKER) (test lbpp=991) 1.20 mmol/L 1.12-1.27 PH, BLOOD (BEAKER) (test kgnb=6552) 7.34 [id number] 05:20:00 Test Item Value Reference Range Comments PHOSPHORUS (BEAKER) (test qjah=862) 2.7 mg/dL 2.3-4.7 [id number] 05:20:00 Test Item Value Reference Range Comments MAGNESIUM (BEAKER) (test yonl=170) 2.2 mg/dL 1.6-2.6 BASIC METABOLIC [id number] 05:20:00 Test Item Value Reference Range Comments SODIUM (BEAKER) (test 140 meq/L 136-145 csnm=015) POTASSIUM (BEAKER) (test 4.9 meq/L 3.5-5.1 zlgn=554) CHLORIDE (BEAKER) (test 103 meq/L 98-107 szgq=200) CO2 (BEAKER) (test 29 meq/L 22-29 deta=209) BLOOD UREA NITROGEN 25 mg/dL 7-21 (BEAKER) (test hpbj=817) CREATININE (BEAKER) (test 1.32 mg/dL 0.57-1.25 xuiy=736) GLUCOSE RANDOM (BEAKER) 155 mg/dL 70-105 (test xpkc=229) CALCIUM (BEAKER) (test 9.7 mg/dL 8.4-10.2 svsi=851) EGFR (BEAKER) (test 41 mL/min/1.73 sq m ESTIMATED GFR IS NOT bcmm=1628) ACCURATE CREATININE CLEARANCE IN PREDICTING GLOMERULAR FILTRATION RATE. ESTIMATED GFR IS NOT APPLICABLE FOR DIALYSIS PATIENTS. CALCIUM, [id number] 04:45:00 Test Item Value Reference Range Comments CALCIUM IONIZED (BEAKER) (test uapz=327) 1.24 mmol/L 1.12-1.27 PH, BLOOD (BEAKER) (test kaka=9697) 7.27 [id number] 04:42:00 Test Item Value Reference Range Comments PROTIME (BEAKER) (test vfrh=621) 13.0 seconds 11.7-14.7 INR (BEAKER) (test xybl=275) 1.0 <=5.9 PARTIAL THROMBOPLASTIN TIME (BEAKER) (test 29.2 seconds 22.5-36.0 oixl=316) RECOMMENDED COUMADIN/WARFARIN INR THERAPY RANGESSTANDARD DOSE: 2.0 - 3.0 Includes: PROPHYLAXIS forvenous thrombosis, systemic embolization; TREATMENT for venous thrombosis and/or pulmonary embolus.HIGH RISK: Target INR is 2.5-3.5 for patients with mechanical heart valves.PROTHROMBIN [id number] 04:41: 00 Test Item Value Reference Range Comments PROTIME (BEAKER) (test kogh=520) 13.0 seconds 11.7-14.7 INR (BEAKER) (test nfer=198) 1.0 <=5.9 RECOMMENDED COUMADIN/WARFARIN INR THERAPY RANGESSTANDARD DOSE: 2.0 - 3.0 Includes: PROPHYLAXIS forvenous thrombosis, systemic embolization; TREATMENT for venous thrombosis and/or pulmonary embolus.HIGH RISK: Target INR is 2.5-3.5 for patients with mechanical heart valves.RAD, CHEST, 1 VIEW, NON [id number] 04:20:00Reason for exam:->pneumonia, copdShould this be performed at the bedside?->YesFINAL REPORT RAD, CHEST, 1 VIEW, NON DEPT INDICATION: pneumonia, copd COMPARISON: Prior day's exam FINDINGS: Portable frontal view of the chest. IMPRESSION: Support Lines: None. Lungs and pleura: No focal airspace disease, effusion or pneumothorax.Heart and mediastinum: Stable contours.Additional findings: None. Signed: JR Guzman Robert MDReport Verified Date/Time: 07/12/2017 04:20:18 Reading Location: [address] Reading Room [facility] (HEMOGRAM ONLY)2017-07-12 04:14:00 Test Item Value Reference Range Comments WHITE BLOOD CELL COUNT (BEAKER) (test oyhx=964) 5.5 K/ L 3.5-10.5 RED BLOOD CELL COUNT (BEAKER) (test dzwv=553) 4.28 M/ L 3.93-5.22 HEMOGLOBIN (BEAKER) (test jref=063) 12.6 GM/DL 11.2-15.7 HEMATOCRIT (BEAKER) (test nqel=235) 41.2 % 34.1-44.9 MEAN CORPUSCULAR VOLUME (BEAKER) (test okxv=494) 96.3 fL 79.4-94.8 MEAN CORPUSCULAR HEMOGLOBIN (BEAKER) (test 29.4 pg 25.6-32.2 hbak=974) MEAN CORPUSCULAR HEMOGLOBIN CONC (BEAKER) (test 30.6 GM/DL 32.2-35.5 jhqe=024) RED CELL DISTRIBUTION WIDTH (BEAKER) (test 14.6 % 11.7-14.4 xydo=588) PLATELET COUNT (BEAKER) (test hztl=636) 210 K/CU MM 150-450 MEAN PLATELET VOLUME (BEAKER) (test ljyd=264) 11.2 fL 9.4-12.3 NUCLEATED RED BLOOD CELLS (BEAKER) (test 0 /100 WBC 0-0 jkuv=563) POCT-GLUCOSE [id number] 22:43:00 Test Item Value Reference Range Comments POC-GLUCOSE METER (BEAKER) 125 mg/dL 70-110 TESTED AT [address] (test wsmk=7248) [place] [id number] POCT-GLUCOSE [id number] 18:20:00 Test Item Value Reference Range Comments POC-GLUCOSE METER (BEAKER) 118 mg/dL 70-110 TESTED AT [address] (test nhax=3120) [place] [id number] POCT-GLUCOSE [id number] 13:23:00 Test Item Value Reference Range Comments POC-GLUCOSE METER (BEAKER) 143 mg/dL 70-110 TESTED AT [address] (test rbcs=5991) [place] [id number] PLATELET AGGREGATION: FUNCTION [id number] 09:18:00 Test Item Value Reference Range Comments WEAK ADP RESULT(BEAKER) (test 52 % 60-91 rpkq=6988) PLATELET FUNCTION SCREEN 50-59% indicates mild platelet INTERP (BEAKER) (test dysfunction ddxw=2083) [id number] Romel Hamilton MD (electronic (BEAKER) (test guab=8222) signature) PLATELET COUNT AGG (BEAKER) 197 K/CU MM 150-450 (test tgyx=4604) RAD, CHEST, 1 VIEW, NON [id number] 07:41:00Reason for exam:->pneumonia, copdShould this be performed at the bedside?->YesFINAL REPORT CLINICAL HISTORY: pneumonia, copd TECHNIQUE: 1 view of the chest. COMPARISON: 07/10/2017 IMPRESSION: Prominent bilateral interstitial lung opacities are unchanged. There is no increasing pleural fluid. The cardiomediastinal silhouette is magnified by technique. Signed: Trell Guillen Verified Date/Time: 07/11/2017 07:41:01 Reading Location: [facility] Radiology Reading Room [id number] 05:55:00 Test Item Value Reference Range Comments PHOSPHORUS (BEAKER) (test ebwi=292) 2.8 mg/dL 2.3-4.7 [id number] 05:55:00 Test Item Value Reference Range Comments MAGNESIUM (BEAKER) (test sgoc=840) 2.1 mg/dL 1.6-2.6 BASIC METABOLIC [id number] 05:55:00 Test Item Value Reference Range Comments SODIUM (BEAKER) (test 141 meq/L 136-145 cqwb=044) POTASSIUM (BEAKER) (test 4.3 meq/L 3.5-5.1 uwws=895) CHLORIDE (BEAKER) (test 105 meq/L 98-107 zcpe=253) CO2 (BEAKER) (test 28 meq/L 22-29 zvan=638) BLOOD UREA NITROGEN 27 mg/dL 7-21 (BEAKER) (test acfy=431) CREATININE (BEAKER) (test 1.37 mg/dL 0.57-1.25 avpt=099) GLUCOSE RANDOM (BEAKER) 150 mg/dL 70-105 (test cdag=883) CALCIUM (BEAKER) (test 9.4 mg/dL 8.4-10.2 vvjc=806) EGFR (BEAKER) (test 39 mL/min/1.73 sq m ESTIMATED GFR IS NOT pdae=3227) ACCURATE CREATININE CLEARANCE IN PREDICTING GLOMERULAR FILTRATION RATE. ESTIMATED GFR IS NOT APPLICABLE FOR DIALYSIS PATIENTS. [id number] 05:37:00 Test Item Value Reference Range Comments PROTIME (BEAKER) (test fzdj=307) 15.1 seconds 11.7-14.7 INR (BEAKER) (test tsxf=173) 1.2 <=5.9 PARTIAL THROMBOPLASTIN TIME (BEAKER) (test 31.2 seconds 22.5-36.0 jpfu=241) RECOMMENDED COUMADIN/WARFARIN INR THERAPY RANGESSTANDARD DOSE: 2.0 - 3.0 Includes: PROPHYLAXIS forvenous thrombosis, systemic embolization; TREATMENT for venous thrombosis and/or pulmonary embolus.HIGH RISK: Target INR is 2.5-3.5 for patients with mechanical heart valves.PROTHROMBIN [id number] 05:36: 00 Test Item Value Reference Range Comments PROTIME (BEAKER) (test bbao=926) 15.1 seconds 11.7-14.7 INR (BEAKER) (test btqn=543) 1.2 <=5.9 RECOMMENDED COUMADIN/WARFARIN INR THERAPY RANGESSTANDARD DOSE: 2.0 - 3.0 Includes: PROPHYLAXIS forvenous thrombosis, systemic embolization; TREATMENT for venous thrombosis and/or pulmonary embolus.HIGH RISK: Target INR is 2.5-3.5 for patients with mechanical heart valves.CBC (HEMOGRAM ONLY)2017-07-11 05:35:00 Test Item Value Reference Range Comments WHITE BLOOD CELL COUNT (BEAKER) (test tvbg=531) 5.1 K/ L 3.5-10.5 RED BLOOD CELL COUNT (BEAKER) (test kabi=338) 4.17 M/ L 3.93-5.22 HEMOGLOBIN (BEAKER) (test bwgr=877) 12.2 GM/DL 11.2-15.7 HEMATOCRIT (BEAKER) (test rshr=718) 40.5 % 34.1-44.9 MEAN CORPUSCULAR VOLUME (BEAKER) (test yeyo=478) 97.1 fL 79.4-94.8 MEAN CORPUSCULAR HEMOGLOBIN (BEAKER) (test 29.3 pg 25.6-32.2 vnro=278) MEAN CORPUSCULAR HEMOGLOBIN CONC (BEAKER) (test 30.1 GM/DL 32.2-35.5 atmc=633) RED CELL DISTRIBUTION WIDTH (BEAKER) (test 14.7 % 11.7-14.4 uiln=014) PLATELET COUNT (BEAKER) (test gkcd=361) 185 K/CU MM 150-450 MEAN PLATELET VOLUME (BEAKER) (test zjlo=379) 11.4 fL 9.4-12.3 NUCLEATED RED BLOOD CELLS (BEAKER) (test 0 /100 WBC 0-0 slwe=191) CALCIUM, [id number] 05:35:00 Test Item Value Reference Range Comments CALCIUM IONIZED (BEAKER) (test fvlo=029) 1.29 mmol/L 1.12-1.27 PH, BLOOD (BEAKER) (test heux=4995) 7.29 POCT-GLUCOSE [id number] 01:32:00 Test Item Value Reference Range Comments POC-GLUCOSE METER (BEAKER) 166 mg/dL 70-110 TESTED AT [address] (test svod=6103) [place] [address] POCT-GLUCOSE [id number] 22:19:00 Test Item Value Reference Range Comments POC-GLUCOSE METER (BEAKER) 138 mg/dL 70-110 TESTED AT [address] (test thfw=3714) [place] [address] POCT-GLUCOSE [id number] 18:47:00 Test Item Value Reference Range Comments POC-GLUCOSE METER (BEAKER) 93 mg/dL 70-110 TESTED AT [address] (test bews=3406) [place] [address] POCT-GLUCOSE [id number] 18:39:00 Test Item Value Reference Range Comments POC-GLUCOSE METER (BEAKER) 95 mg/dL 70-110 TESTED AT [address] (test uojz=2211) [place] [id number] CTA, CHEST, ABDOMEN - PELVIS, FOR [id number] 17:03:00Reason for exam:- >aortic ulcersAddendum BeginsREPORT STATUS:A Addendum : I agree with the previously described non vascular findings. Signed: García Hawkins MDReport Verified Date/Time: 07/10/2017 17:03:39 Reading Location: [place] [id number] Angio Body Reading RoomAddendum EndsFINAL REPORT CT angiography of the thoracoabdominal aorta and pelvic arteries, 10 July 2017 INDICATION: This is a 61 years old female, with a diagnosis of aortic ulceration presents for assessment. This study is performed in attempt to avoid invasive procedure. TECHNIQUE: Spiral acquisition before and during contrast administration using a Jung multidetector CT scanner. Multiplanar 3-D volume rendering reformation was performed using independent workstation interactively by the dictating physician and the3-D specialist. The amount of contrast used and method of administration can be found in the scannedEpic document. Note, patient was not following breath-holding, and therefore ECG gating was not utilized as there would be more artefact present with ECG gating and not maintaining breath-holding. Thisexam was performed according to our departmental dose-optimisation programme, which includes automated exposure control, adjustment of the mA and/or kV according to patient size and/or use of iterativereconstruction technique. Dose modulation, iterative reconstruction, and/or weight based adjustment of the mA/kV was utilized to reduce the radiation dose to as low as reasonably achievable. FINDINGS: VASCULAR: The central pulmonary artery is normal in calibre. The cardiac chamber demonstrate normal atrioventricular and ventriculoarterial concordance, systemic and pulmonary venous return. The left ventricle is normal in size. Left atrial enlargement is identified. Lipomatous hypertrophy of the interatrial septum is seen. Coronary artery origins are normal and coronary artery calcification is seenin the LAD and RCA territories. Regarding the aorta, mild calcification seen in the ascending thoracic aorta. No acute dissection is seen in the ascending thoracic aorta. However, just before the takeoff of the innominate artery, some noncalcific and calcific atheroma identified for example image 54. Similar finding is seen in the transverse arch and descending thoracic aorta, in particular, at image37, some hanging atherosclerosis is identified, best seen in the sagittal orientation, and the length is approximately 10 mm. See snapshot for details. In addition, in the mid/distal descending thoracic aorta , the amount of atheroma increased, for example at the distal descending thoracic aorta , the thickness of the atheroma is approximately 8 to 9 mm. Most importantly, just above the diaphragmatic hiatus, at image 136, penetrating atherosclerotic ulcer is seen, protruding rightward. See snapshot for details. In the abdominal aorta, both calcific and noncalcific atherosclerosis is seen.The minimum diameter inferior to the takeoff of the JERAMY , image 245 is approximately 9.8 x 8.4 mm with circumferential calcific atherosclerosis identified. The left common iliac, left external iliac, and the left common femoral arteries have eccentric nonobstructive calcific atherosclerosis identified.Minimum diameter is located at the takeoff of the left external iliac artery, which measures 4.9 x 7.7 mm. Moderate tortuosity is seen at this level. See snapshot for details. Remainder of the left pelvic artery calibre is unremarkable. The left SFA is unremarkable. In the right, a vascular stent is identified in the right common iliac artery that is widely patent and the inner aptp-zz-gyef diameteris at least 7 to 8 mm. Remainder of the right common iliac, right external iliac, and the right common femoral arteries are widely patent with only minimal atherosclerosis identified. Minimum diameter of the right external iliac artery is at least 6 to 7 mm in diameter. The right SFA is also unremarkable. The coeliac axis, hepatic and splenic arteries are widely patent. The SMA is widely patent. The JERAMY is widely patent. There are in total single left and two right renal arteries that are also patent with no obstructive lesion identified with some mild atherosclerosis seen. Single left and right renal veins are seen draining normally into the IVC. Quantitative dimensions of the aorta are as follows: 3.1 cm at the aortic root; 2.8 cm at the proximal ascending thoracic aorta; 3.1 cm at the mid ascending thoracic aorta; 2.9 cm at the distal ascending thoracic aorta; 2.5 cm at the mid transverse arch; 2.6 cm at the proximal descending thoracic aorta; 2.3 cm at the mid descending thoracic aorta. Using the coeliac axis as landmark, at approximately 1.6 cm above the takeoff of the coeliac axis , the aorta near the diaphragmatic hiatus measures approximately 2.7 x 2.4 cm. At approximately 1.5 cm abovethe atherosclerotic ulceration, the distal descending thoracic aorta measures approximately 2.6 x 2.3 cm. In other words, a stent length of approximately 6.5 cm that starts approximately 1.5 cm above the atherosclerotic ulceration and ends approximately 1.6 cm above the takeoff of the coeliac axis will, cover the ulceration. In the abdomen, the aorta measures 2.0 cm at the mesenteric level; 1.8 cm atthe renal level; and approximately 1.4 cm at the aortic bifurcation. NONVASCULAR: The visualised thyroid gland appears unremarkable. The chest wall and mediastinum has no acute abnormalities identified. There are number of small lymph nodes identified in the mediastinum, the largest one in the prevascular area image 50 with diameter of approximately 9 to 10 mm still considered nonspecific/reactive innature. Other lymph nodes are also seen in the right hilum. In the lung windows, no obvious endobronchial lesion is seen and no pleural effusion is identified. Dependent changes are seen in the lung bases. Some subsegmental atelectatic changes are seen. There could be patchy opacity/scarring identified in the posterior aspect of the right lung, image 75. In addition, pulmonary vasculature is somewhatprominent suggesting a degree of cardiac congestion. No pneumothorax is identified. Calcified granuloma is identified in the left lower lobe at image 121. In the abdomen, the liver and spleen appears unremarkable. Fatty infiltration of the liver is identified. The liver edge is smooth. No abnormal enhancing structure is identified. Fatty infiltration of the liver is identified. Patient is post cholecystectomy. The adrenal glands are not enlarged. The pancreas appears unremarkable. No acute renal pathology is seen and no hydronephrosis or perirenal fluid collections identified. Some cortical scarring is seen. Subcentimeter hypodensities are seen in both kidneys, too small to characterize. Bowel isnot well assessed by CT angiography as enteric contrast is not given. No obvious bowel dilation is identified. Scattered diverticular disease is seen in the descending colon with no evidence of acute diverticulitis. Small ventral hernia is identified, at image 282, with small loops of bowel present inthe neck measures approximately 2.3 cm with no incarceration or strangulation seen. Patient is likely post appendectomy. No free air or free fluid seen abdomen and pelvis. The bladder is full of contrast indicating recent contrast exposure. The uterus is not identified. No obvious abnormal adnexal masses seen though CT is not optimised in the assessment of pelvic gynaecological structures. No significant retroperitoneal adenopathy is identified. In the bony windows, no acute bony pathology is seen. CONCLUSIONS: 1. Relatively unremarkable ascending thoracic aorta. There is hanging atherosclerosis identified in the proximal descending thoracic aorta, for example at image 36. In the descending thoracic aorta, both calcific and noncalcific atherosclerosis identified with protruding atheroma for example image 138. Most importantly, above the diaphragmatic hiatus, in the right lateral aspect, penetrating atherosclerotic ulceration is identified, at image 136. Various measurement are as described above. No extravasation of contrast is identified. No stranding is seen in the surrounding soft tissue structure. In the infrarenal abdominal aorta, atherosclerosis identified and in particular , circumferential calcification seen near the very distal infrarenal abdominal aorta above the aortic bifurcation, with minimal luminal diameter of approximately 9.8 x 8.4 mm. Quantitative dimensions of the thoracoabdominal aorta are as described above. 2. Moderate tortuosity is identified in the left common iliac/left external iliac artery, with minimum luminal diameter at image 277 of approximately 7.7 x 4.9 mm. A stent is seen in the right common iliac artery with no in-stent stenosis identified. The right pelvic approach may be the more optimal approach for consideration of pelvic venous intervention.3. Coronary atherosclerosis. 4. Pulmonary vasculature is prominent suggesting cardiac congestion. Evidence of prior granulomatous disease. 5. Other findings as described above. Hepatic steatosis. 6. An addendum will be dictated by the Management Lead Radiologist regarding the nonvascular findings. Signed: Willis W[place] Verified Date/Time: 07/10/2017 11:12:02 Reading Location: [place] [id number] MRI URINALYSIS W/ REFLEX URINE [id number] 16:27:00 Test Item Value Reference Range Comments COLOR (BEAKER) (test uimt=091) Yellow CLARITY (BEAKER) (test cwff=630) Clear SPECIFIC GRAVITY UA (BEAKER) (test qwga=458) 1.049 1.001-1.035 PH UA (BEAKER) (test ntgl=902) 5.5 5.0-8.0 PROTEIN UA (BEAKER) (test erlj=897) 10 mg/dL Negative GLUCOSE UA (BEAKER) (test dyez=847) Negative Negative KETONES UA (BEAKER) (test hmem=626) Negative Negative BILIRUBIN UA (BEAKER) (test hzdm=419) Negative Negative BLOOD UA (BEAKER) (test sbon=512) Negative Negative NITRITE UA (BEAKER) (test bzog=647) Negative Negative LEUKOCYTE ESTERASE UA (BEAKER) (test sciz=244) Negative Negative UROBILINOGEN UA (BEAKER) (test wmtl=174) 2.0 mg/dL 0.2-1.0 RBC UA (BEAKER) (test nmqw=409) < /HPF WBC UA (BEAKER) (test tgzs=194) < /HPF SQUAMOUS EPITHELIAL (BEAKER) (test akzn=757) 1 /HPF SOURCE(BEAKER) (test dtks=5039) [id number] 13:13:00 Test Item Value Reference Range Comments COL/EPI CLOSURE TIME (BEAKER) (test gazt=5966) > Seconds 78-191 COL/ADP CLOSURE TIME (BEAKER) (test bmlq=6079) 76 Seconds 43-122 PLATELET COUNT AGG (BEAKER) (test bcqj=1049) 188 K/CU MM 150-450 POCT-GLUCOSE [id number] 12:41:00 Test Item Value Reference Range Comments POC-GLUCOSE METER (BEAKER) 70 mg/dL 70-110 TESTED AT [address] (test evhq=7675) [place] [id number] POCT-GLUCOSE [id number] 10:45:00 Test Item Value Reference Range Comments POC-GLUCOSE METER (BEAKER) 87 mg/dL 70-110 TESTED AT [address] (test imkt=0402) [place] [id number] TSH/FREE T4 IF [id number] 09:07:00 Test Item Value Reference Range Comments THYROID STIMULATING HORMONE (BEAKER) (test 1.07 uIU/mL 0.35-4.94 kltg=509) B-TYPE NATRIURETIC FACTOR (BNP)2017-07-10 09:03:00 Test Item Value Reference Range Comments B-TYPE NATRIURETIC PEPTIDE (BEAKER) (test jdhc=094) 86 pg/mL 0-100 B-TYPE NATRIURETIC FACTOR (BNP)2017-07-10 05:25:00 Test Item Value Reference Range Comments B-TYPE NATRIURETIC PEPTIDE (BEAKER) (test cdcq=702) 76 pg/mL 0-100 [id number] 02:31:00 Test Item Value Reference Range Comments PARTIAL THROMBOPLASTIN TIME (BEAKER) (test 33.4 seconds 22.5-36.0 aprw=102) [id number] 02:31:00 Test Item Value Reference Range Comments PHOSPHORUS (BEAKER) (test pmpl=754) 4.2 mg/dL 2.3-4.7 [id number] 02:31:00 Test Item Value Reference Range Comments MAGNESIUM (BEAKER) (test xjor=946) 1.9 mg/dL 1.6-2.6 BASIC METABOLIC [id number] 02:31:00 Test Item Value Reference Range Comments SODIUM (BEAKER) (test 143 meq/L 136-145 yiyr=065) POTASSIUM (BEAKER) (test 4.2 meq/L 3.5-5.1 gbpw=173) CHLORIDE (BEAKER) (test 105 meq/L 98-107 lolv=944) CO2 (BEAKER) (test 29 meq/L 22-29 wydd=885) BLOOD UREA NITROGEN 23 mg/dL 7-21 (BEAKER) (test krtl=279) CREATININE (BEAKER) (test 1.47 mg/dL 0.57-1.25 vqht=030) GLUCOSE RANDOM (BEAKER) 89 mg/dL 70-105 (test bsfv=255) CALCIUM (BEAKER) (test 9.0 mg/dL 8.4-10.2 yiaz=229) EGFR (BEAKER) (test 36 mL/min/1.73 sq m ESTIMATED GFR IS NOT ffxd=0680) ACCURATE CREATININE CLEARANCE IN PREDICTING GLOMERULAR FILTRATION RATE. ESTIMATED GFR IS NOT APPLICABLE FOR DIALYSIS PATIENTS. PROTHROMBIN [id number] 02:30:00 Test Item Value Reference Range Comments PROTIME (BEAKER) (test djqb=336) 13.7 seconds 11.7-14.7 INR (BEAKER) (test xnpc=950) 1.1 <=5.9 RECOMMENDED COUMADIN/WARFARIN INR THERAPY RANGESSTANDARD DOSE: 2.0 - 3.0 Includes: PROPHYLAXIS forvenous thrombosis, systemic embolization; TREATMENT for venous thrombosis and/or pulmonary embolus.HIGH RISK: Target INR is 2.5-3.5 for patients with mechanical heart valves.CBC W/PLT COUNT & AUTO [id number] 02:17:00 Test Item Value Reference Range Comments WHITE BLOOD CELL COUNT (BEAKER) (test vnyd=379) 6.5 K/ L 3.5-10.5 RED BLOOD CELL COUNT (BEAKER) (test hwac=984) 4.31 M/ L 3.93-5.22 HEMOGLOBIN (BEAKER) (test rjza=786) 12.7 GM/DL 11.2-15.7 HEMATOCRIT (BEAKER) (test wkde=885) 41.7 % 34.1-44.9 MEAN CORPUSCULAR VOLUME (BEAKER) (test woav=123) 96.8 fL 79.4-94.8 MEAN CORPUSCULAR HEMOGLOBIN (BEAKER) (test 29.5 pg 25.6-32.2 ujlw=812) MEAN CORPUSCULAR HEMOGLOBIN CONC (BEAKER) (test 30.5 GM/DL 32.2-35.5 ucjt=132) RED CELL DISTRIBUTION WIDTH (BEAKER) (test 14.6 % 11.7-14.4 aqtc=030) PLATELET COUNT (BEAKER) (test pgmu=371) 182 K/CU MM 150-450 MEAN PLATELET VOLUME (BEAKER) (test jfmd=104) 11.0 fL 9.4-12.3 NUCLEATED RED BLOOD CELLS (BEAKER) (test 0 /100 WBC 0-0 ifrd=895) NEUTROPHILS RELATIVE PERCENT (BEAKER) (test 73 % ykri=253) LYMPHOCYTES RELATIVE PERCENT (BEAKER) (test 16 % gxqc=085) MONOCYTES RELATIVE PERCENT (BEAKER) (test 10 % moin=339) EOSINOPHILS RELATIVE PERCENT (BEAKER) (test 1 % buor=730) BASOPHILS RELATIVE PERCENT (BEAKER) (test 0 % ormd=280) NEUTROPHILS ABSOLUTE COUNT (BEAKER) (test 4.78 K/ L 1.56-6.13 iwej=204) LYMPHOCYTES ABSOLUTE COUNT (BEAKER) (test 1.02 K/ L 1.18-3.74 gpts=677) MONOCYTES ABSOLUTE COUNT (BEAKER) (test 0.64 K/ L 0.24-0.36 cbdc=405) EOSINOPHILS ABSOLUTE COUNT (BEAKER) (test 0.05 K/ L 0.04-0.36 omfw=505) BASOPHILS ABSOLUTE COUNT (BEAKER) (test 0.02 K/ L 0.01-0.08 jcbp=830) IMMATURE GRANULOCYTES-RELATIVE PERCENT (BEAKER) 0 % 0-1 (test jjne=3791) RAD, CHEST, 1 VIEW, NON [id number] 01:59:00Reason for exam:->acute O2 desat, ?COPD, ?pneumoniaShould this be performed at the bedside?->YesFINAL REPORT RAD, CHEST, 1 VIEW, NON DEPT INDICATION: acute O2 desat, ?COPD, ?pneumonia COMPARISON: None FINDINGS: Portable frontal view of the chest. IMPRESSION: Support Lines: None Lungs and pleura: Dense interstitial congestion bilaterally. No effusion. No pneumothorax.Heart and mediastinum: Prominent cardiac silhouette. Additional findings: None. Signed: JR Guzman Robert MDReport Verified Date/Time: 07/10/2017 01:59:30 Reading Location: [address]
[2018-02-07] MEDS ORDERED: NA CHLORIDE 0.9% 1,000 ML ONE (08:46)
[2018-02-07] MEDS ORDERED: LIDOCAINE 1% W/EPI 1:100,000 MDV 50 ML VIAL ONE (09:06)
[2018-02-07] MEDS ORDERED: LIDOCAINE 1% MPF 5 ML VIAL ONE (09:26)
[2018-02-07] MEDS ORDERED: PROPOFOL 200 MG/20 ML VIAL IV ONE ×2 (09:26→09:47)
[2018-02-07] MEDS ORDERED: ROCURONIUM 50 MG/5 ML VIAL IV ONE (09:26)
[2018-02-07] MEDS ORDERED: SUCCINYLCHOLINE 20 MG/ML (10 ML) IV ONE (09:27)
[2018-02-07] MEDS ORDERED: EPINEPHRINE/PF 1 MG/ML AMP ONE (09:51)
[2018-02-07] MEDS ORDERED: DEXAMETHASONE 10 MG/ML VIAL ONE (09:52)
--- NOTE | 2018-02-07 09:57 | P.BOP ---
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
[2018-02-07 12:03] VITALS: BP 125/61; TEMP 97.5; O2SAT 97
--- NOTE | 2018-02-07 17:29 | OP ---
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 Procedure: Direct laryngoscopy with telescope and biopsy. Indication For Procedure: Ms. Castaneda is a 62-year-old with a long history of smoking, who presented with chronic sore throat and a palpable neck mass. An office laryngoscopy showed enlargement with si gnificant thickening of the tip of the epiglottis and ulceration of the laryngeal surface of the epig lottis. The risks, benefits, alternatives to the procedure were discussed with the patient, who agre ed to proceed. Procedure In Detail: After successful intubation, the patient's mouth was inspected. There was a sm all laceration on the right upper lip as a result of intubation, but bleeding from the site was minim al. There was no obvious lesions of the lips, gingiva, floor of mouth, tongue. No palpable masses o f the base of tongue. A tooth guard was placed and a Santy laryngoscope was used to perform a dir ect laryngoscopy. The tip of the scope was placed in the vallecula and used to elevate the base of t ongue with good demonstration of the epiglottis. Photo documentation with the telescope was taken. A bulky firm indurated area on the laryngeal surface was biopsied. Four individual bites from the sa me area were collected. A pledget was applied to the biopsy surface. An epinephrine-soaked pledget was then applied for several minutes and then removed. The biopsy site appeared hemostatic. A small amount of blood was suctioned off the posterior pharyngeal wall, and the scope was slowly withdrawn. The tooth guard was removed and the patient was returned to care of Anesthesia for awakening and ex tubation in the operating room, which proceeded without difficulty. Complications: None. Disposition: The patient will be discharged home later today and a referral is initiated for Radiati on Oncology and Medical Oncology evaluation as primary treatment in this case. LATISHA/LIBERTAD Voice ID: [id number] Report ID: [id number]
== END 2018-02-07 11:58 | disposition home or self-care (01) ==
LOC: OR 08:38
PROVIDERS: ATTEND Otolaryngology
PROC: 0CBR8ZX Excision of Epiglottis, Via Natural or Artificial Opening Endoscopic, Diagnostic (ICD-10-PCS; principal; 2018-02-07 10:15)
DX: C32.1 Malignant neoplasm of supraglottis (principal); F17.200 Nicotine dependence, unspecified, uncomplicated; I10 Essential (primary) hypertension; E78.00 Pure hypercholesterolemia, unspecified; G47.30 Sleep apnea, unspecified; E66.2 Morbid (severe) obesity with alveolar hypoventilation; I25.10 Atherosclerotic heart disease of native coronary artery without angina pectoris; Z95.5 Presence of coronary angioplasty implant and graft; Z88.6 Allergy status to analgesic agent; Z88.8 Allergy status to other drugs, medicaments and biological substances; Z80.9 Family history of malignant neoplasm, unspecified; Z83.3 Family history of diabetes mellitus; Z82.49 Family history of ischemic heart disease and other diseases of the circulatory system
CPT/HCPCS: 31536; 82962 ×2; 88305; 93005; J0171; J0330; J1100; J7030

== ENCOUNTER 2018-04-04 13:06 | Inpatient (IN) | payer OTHER ==
--- OUTSIDE RECORDS SUMMARY | 2018-04-04 13:09 | XMS REPORT | Clinical Summary ---
:1955 Author Organization [facility] Address [address] [place] [address] Phone Care Team Providers Name Role Phone [...] respiratory failure (HCC) 07/15/2017 Acute pulmonary edema ([facility]) 07/15/2017 Acute respiratory distress syndrome (ARDS) ([facility]) 07/14/2017 Hypovolemic shock ([facility]) not a complication of surgery 07/13/2017 Postoperative anemia due to acute blood loss 07/13/2017 Respiratory acidosis 07/13/2017 S/P endovascular stent graft for thoracic aortic aneurysm 07/12/2017 Penetrating atherosclerotic ulcer of aorta ([facility]) 07/10/2017 Acute pulmonary insufficiency following nonthoracic surgery ([facility]) 07/10/2017 Acute kidney injury superimposed on chronic kidney disease ([facility]) 07/10/2017 Narcolepsy 07/10/2017 Essential hypertension 07/10/2017 Diabetes ([facility]) 07/10/2017 Atherosclerosis of coronary artery without angina [...] Morbid obesity with BMI of 40.0-44.9, adult ([facility]) 07/10/2017 Hypothyroid 07/10/2017 Sleep apnea 07/10/2017 Depression [...] 07/10/2017 Orders Only General Internal Medicine after 04/03/2017 Immunizations Name Dates Previously Given Next Due [...] Taken Blood Pressure 146/71 08/05/2017 8:13 AM GROUP CARE WORKER Pulse 95 08/05/2017 7:45 PM GROUP CARE WORKER Temperature 35.9 C (96.6 F) 08/05/2017 8:13 AM GROUP CARE WORKER Respiratory Rate 20 08/05/2017 7:45 PM GROUP CARE WORKER Oxygen Saturation 96% 08/05/2017 7:45 PM GROUP CARE WORKER Inhaled Oxygen Concentration - - Weight 103.9 kg (229 lb 0.9 oz) 08/05/2017 8:13 AM GROUP CARE WORKER Height 157.5 cm (5' 2") 07/10/2017 1:00 AM GROUP CARE WORKER Body Mass Index 41.9 08/05/2017 8:13 AM GROUP CARE WORKER Plan of Treatment Not on file Implants Implanted Type Area General Scrap Worker Device Expiration Model / Identifier Date Serial / Lot Closure Sys Perclose Progl 6fr 30184-09 - [id number] Cardiovascular N/A: CAMACHO 04/25/2019 [id number] / Implanted: Qty: 2 on 07/12/2017 by Valdo Cochran MD Groin LAB: [facility] DEV / [id number] Zenith Alpha Thoracicendovascular Graft Other N/A: [employer] 2019 [id number] / Implanted: Qty: 1 on 07/12/2017 by Valdo Cochran MD Aorta / [id number] Procedures Procedure Name Priority Date/Time Associated Diagnosis Comments REPAIR,TEVAR-THORACIC 07/12/2017 7:30 AM ANEURYSM ENDOVASCULAR ANEURYSM GROUP CARE WORKER after 04/03/2017 Results RHYTHM STRIP - SCAN (08/16/2017 12:50 PM)Only the most recent of2 resultswithin the time period is included.VASCULAR DIAGRAM -SCAN (08/07/2017 10:00 AM)EKG- SCANNED (08/07/2017 10:00 AM)CTA chest, abdomen & pelvis - for dissection ( 08/05/2017 6:19 PM)Only the most recent of2 resultswithin the time period is included. Specimen Performing Laboratory [employer] Narrative Addendum Begins REPORT STATUS:A Addendum: I agree with the previously described non vascular findings. Signed: Rachna Watson MD Report Verified Date/Time:08/06/2017 10:39:07 Reading Location: [place] [address] Angio Body Reading Room Addendum Ends FINAL [...] the progression/resolution of the haematoma. Surgical warehouse incentive selector was paged to inform this finding at the time of dictation. Dr. Dyer was contacted to discuss this finding. 5.An addendum will be dictated by the [employer] Radiologist regarding the nonvascular findings. Signed: Willis Washington MD Report Verified Date/Time:08/05/2017 19:03:58 Reading Location: [facility] P047 Cardiology MRI Procedure Note Interface, External Ris In - 08/06/2017 10:41 AM GROUP CARE WORKER Addendum Begins REPORT STATUS:A Addendum: I agree with the previously described non vascular findings. Signed: Rachna Watson MD Report Verified Date/Time: 08/06/2017 10:39:07 Reading Location: [place] [id number] Angio Body Reading Room Addendum Ends FINAL [...] the progression/resolution of the haematoma. Surgical warehouse incentive selector was paged to inform this finding at the time of dictation. Dr. Dyer was contacted to discuss this finding. 5. An addendum will be dictated by the [employer] Radiologist regarding the nonvascular findings. Signed: Willis Washington MD Report Verified Date/Time: 08/05/2017 19:03:58 Reading Location: [place] [address] Cardiology MRI -Glucose meter (08/05/2017 1:01 PM)Only the most recent of115 resultswithin the time period is included. Component Value Ref Range POC-Glucose Meter 100Comment: TESTED AT [address] 70 - 110 mg/dL [address] Specimen Performing Laboratory Blood [facility] [address] [address] XR chest 1 view portable / bedside [...] MD Report Verified Date/Time:08/05/2017 08:46:21 Reading Location: [facility] Radiology Reading Room Procedure Note Interface, External Ris In - 08/05/2017 9:02 AM GROUP CARE WORKER FINAL REPORT Portable chest 08/05/2017 COMPARISON: 08/04/2017 [...] Report Verified Date/Time: 08/05/2017 08:46:21 Reading Location: [facility] Radiology Reading Room aPTT (08/05/2017 5:40 AM)Only the most recent of27 resultswithin the time period is included. Component Value Ref Range PTT 30.7 22.5 - 36.0 seconds Specimen Performing Laboratory Blood [address] [address] Prothrombin time/INR (08/05/2017 5:40 AM)Only the most recent of30 resultswithin the time period is included. Component Value Ref Range Protime 13.2 11.7 - 14.7 seconds INR 1.0 <=5.9 Specimen Performing Laboratory Blood [address] [address] Narrative RECOMMENDED COUMADIN/WARFARIN INR THERAPY RANGES STANDARD [...] 0 /100 WBC Specimen Performing Laboratory Blood [address] [address] Phosphorus (08/05/2017 5:40 AM)Only the most recent of30 resultswithin the time period is included. Component Value Ref Range Phosphorus 4.1 2.3 - 4.7 mg/dL Specimen Performing Laboratory Blood [address] [address] Magnesium (08/05/2017 5:40 AM)Only the most recent of32 resultswithin the time period is included. Component Value Ref Range Magnesium 1.6 1.6 - 2.6 mg/dL Specimen Performing Laboratory Blood [address] [address] Basic Metabolic Panel (08/05/2017 5:40 AM)Only the [...] FOR DIALYSIS PATIENTS. Specimen Performing Laboratory Blood [address] [address] Vancomycin level, trough (08/01/2017 7:58 PM)Only the most recent of3 resultswithin the time period is included. Component Value Ref Range Vancomycin Tr 12.2 10.0 - 20.0 ug/mL Specimen Performing Laboratory Blood [address] [address] [place] esoph swallow funct with cine video [...] MD Report Verified Date/Time:07/30/2017 14:35:49 Reading Location: [address] Ortho Consult Reading Room Procedure Note Interface, External Ris In - 09/11/2017 1:33 PM GROUP CARE WORKER FINAL REPORT Modified barium swallow with speech [...] Report Verified Date/Time: 07/30/2017 14:35:49 Reading Location: [address] Ortho Consult Reading Room Blood culture (07/29/2017 6:17 PM)Only the most recent of9 resultswithin the time period is included. Component Value Ref Range Result No growth in 5 days Specimen Performing Laboratory Blood - Central Venous Line [address] [address] XR abdomen / KUB 1 view (07/29/2017 [...] MD Report Verified Date/Time:07/29/2017 09:40:24 Reading Location: [facility] Radiology Reading Room Procedure Note Interface, External Ris In - 07/29/2017 9:42 AM GROUP CARE WORKER FINAL REPORT Abdomen one view Comparison: July 22, 2017 Reason for exam: reposition of NGT Findings: Feeding tube projects over the expected location of distal gastric body. Gas pattern appears nonspecific. Signed: Eleazar Shepard MD Report Verified Date/Time: 07/29/2017 09:40:24 Reading Location: [facility] Radiology Reading Room Potassium (07/28/2017 4:11 PM)Only the most recent of5 resultswithin the time period is included. Component Value Ref Range Potassium 4.1 3.5 - 5.1 meq/L Specimen Performing Laboratory Blood [place] [address] Narrative PRN - repeat potassium levels every 1 hour until glucose level is less than 450 mg/dL Vancomycin level, random (07/28/2017 4:10 AM)Only the most recent of2 resultswithin the time period is included. Component Value Ref Range Vancomycin Rm 25.6 ug/mL Specimen Performing Laboratory Blood - Line, Arterial [address] [address] Narrative Reference Range: No Normals Blood gas, [...] 40.0 % Specimen Performing Laboratory Blood, Arterial [address] [address] Narrative Daily ABG with morning labs while patient is intubated. Glucose-STAT (07/26/2017 12:29 AM) Component Value Ref Range Glucose 336 (H) 70 - 105 mg/dL Specimen Performing Laboratory Blood - Line, Arterial [address] [address] Bronchial culture + gram stain (07/24/2017 12:40 PM) Component Value Ref Range Result 1+ Normal respiratory ambreen present Gram Stain Result 1+ WBCs Gram Stain Result No organisms seen Specimen Performing Laboratory BAL - Bronchial Wash [address] [address] Urine culture (07/24/2017 11:37 AM) Component Value Ref Range Result No growth Specimen Performing Laboratory Urine - Urine, Vora [address] [address] BCID (07/24/2017 11:31 AM) Component Value Ref Range Scan Result Specimen Performing Laboratory Blood [address] [address] Narrative Result comments: Coagulase Negative Staphylococcus Species [...] required. This sample was tested at the [facility] Clinical Microbiology Laboratory using the FlexiantArray Blood Culture ID Panel. This test is FDA cleared for in vitro diagnostic use and has been verified and approved by the [facility] Clinical Microbiologylaboratory for clinical use. Reference Range: Not Detected Sputum Culture + Gram Stain (07/24/2017 11:20 AM)Only the most recent of2 resultswithin the time period is included. Component Value Ref Range Result 1+ Normal respiratory ambreen present Gram Stain Result 1+ WBCs Gram Stain Result 0-5 epithelial cells Gram Stain Result No organisms seen Specimen Performing Laboratory Sputum - Suctioned [facility] [address] TSH/Free T4 If Indicated (07/20/2017 3:46 AM)Only the most recent of3 resultswithin the time period is included. Component Value Ref Range TSH 1.13 0.35 - 4.94 uIU/mL Specimen Performing Laboratory Blood - Line, Arterial [address] [address] TRANSFUSION SERVICE REPORT - SCAN (07/17/2017 5:41 [...] FOR DIALYSIS PATIENTS. Specimen Performing Laboratory Blood [address] [address] Hepatic function panel (07/17/2017 12:10 AM) Component [...] U/L Specimen Performing Laboratory [facility] [address] [address] CBC with platelet count + automated diff [...] 1 % Specimen Performing Laboratory Blood [facility] [address] [address] CBC with platelet count + automated diff (07/17/2017 12:03 AM)Only the most recent of4 resultswithin the time period is included. Specimen Performing Laboratory Blood Narrative The following orders were created for panel order CBC with platelet count + automated diff. Procedure Abnormality Status --------- ------ CBC with platelet count ...[[id number]]AbnormalFinal result Manual Differential[[id number]] Please view results for these tests on the individual orders. Prepare Leuko-Red RBC (07/16/2017 11:54 PM)Only the most recent of6 resultswithin the time period is included. Component Value Ref Range CROSSMATCH COMPATIBLE Unit ABO A Pos UNIT NUMBER [id number] Status TRANSFUSED Blood Bank Product RED BLOOD CELLS PRODUCT CODE D4647H88 CROSSMATCH COMPATIBLE Unit ABO A Pos UNIT NUMBER [id number] Status TRANSFUSED Blood Bank Product RED BLOOD CELLS PRODUCT CODE [id number] Specimen Performing Laboratory Other [employer] [place] Hemoglobin and hematocrit (07/16/2017 2:18 PM)Only the most recent of5 resultswithin the time period is included. Component Value Ref Range Hemoglobin 9.3 (L) 11.2 - 15.7 GM/DL Hematocrit 28.7 (L) 34.1 - 44.9 % Specimen Performing Laboratory Blood [address] [address] Glucose-Stat Lab (07/15/2017 12:25 PM)Only the most recent of6 resultswithin the time period is included. Component Value Ref Range Glucose 90 70 - 110 mg/dL Specimen Performing Laboratory Blood, Arterial - Line, Arterial [address] [address] HGB/HCT (H&H)-Stat Lab (07/15/2017 12:25 PM)Only the most recent of6 resultswithin the time period is included. Component Value Ref Range Hemoglobin 10.2 (L) 12.0 - 15.0 g/dL Hematocrit 30.0 (L) 36.0 - 45.0 % Specimen Performing Laboratory Blood, Arterial - Line, Arterial [address] [address] Transfuse Leuko-Red RBC (07/15/2017 11:31 AM)Only the most recent of11 resultswithin the time period is included.Type and screen, automated (2016 8:42 AM)Only the most recent of2 resultswithin the time period is included. Component Value Ref Range ABO/RH AUTOMATED (BEAKER) A POSITIVE Ab Scrn NEGATIVE Specimen Performing Laboratory Blood [address] [address] ECG 12 lead (07/13/2017 8:53 AM)Only the most recent of2 resultswithin the time period is included. Specimen Performing Laboratory GE MUSE Narrative Ventricular Rate 99 BPM Atrial Rate 99 BPM P-R Interval 138 ms QRS Duration 86 ms Q-T Interval 356 ms QTC Calculation(Bazett) 456 ms P [place] 58 degrees R [place] 13 degrees T [place] 77 degrees Poor data quality, interpretation may [...] External Ris In - 07/15/2017 8:25 AM GROUP CARE WORKER Ventricular Rate 99 BPM Atrial Rate 99 BPM P-R Interval 138 ms QRS Duration 86 ms Q-T Interval 356 ms QTC Calculation(Bazett) 456 ms P [place] 58 degrees R [place] 13 degrees T [place] 77 degrees Poor data quality, interpretation may [...] shortened Confirmed by MD DEVINE JOSEPH P ([id number]) on 07/15/2017 8:25:38 AM Potassium-Stat Lab (07/13/2017 7:59 AM)Only the most recent of4 resultswithin the time period is included. Component Value Ref Range Potassium 5.2 3.6 - 5.5 meq/L Specimen Performing Laboratory Blood, Arterial - Line, Arterial [address] [address] Calcium, Ionized (07/13/2017 7:59 AM)Only the most recent of5 resultswithin the time period is included. Component Value Ref Range Calcium, Ion 1.24 1.12 - 1.27 mmol/L pH, Blood 7.19 Specimen Performing Laboratory Blood - Line, [address] [address] Fibrinogen (07/13/2017 7:59 AM) Component Value Ref Range Fibrinogen 282 225 - 434 mg/dl Specimen Performing Laboratory Blood - Line, Arterial [address] [address] [facility] CRITICAL LABS (ABG,NA,K,H&H,GLUCOSE) (07/12/2017 2:08 PM)Only the most recent of3 resultswithin the time period is included. Specimen Performing Laboratory Blood, Arterial Narrative The following orders were created for panel order [facility] CRITICAL LABS (ABG,NA,K,H&H,GLUCOSE). Procedure Abnormality Status --------- ------ Blood gas, arterial[[id number]]AbnormalFinal result Sodium Na-Stat Lab[[id number]] NormalFinal result Potassium-Stat Lab[[id number]] NormalFinal result Glucose-Stat Lab[[id number]] AbnormalFinal result HGB/HCT (H&H)-Stat Lab[[id number]] Abnormal Final result Please view results for these tests on the individual orders. Sodium Na-Stat Lab (07/12/2017 2:08 PM)Only the most recent of3 resultswithin the time period is included. Component Value Ref Range Sodium 135 135 - 148 meq/L Specimen Performing Laboratory Blood, Arterial [address] [address] Platelet Aggregation: Function Screen (07/12/2017 11:25 AM)Only the most recent of2 resultswithin the time period is included. Component Value Ref Range Weak ADP 70 60 - 91 % Plt. Function Screen Interpretation 60-100% indicates normal platelet function Pathologist: Romel Hamilton MD (electronic signature) Platelets 231 150 - 450 K/CU MM Specimen Performing Laboratory Blood [address] [address] Prepare RBC (07/12/2017 11:06 AM) Component Value Ref Range CROSSMATCH COMPATIBLE Unit ABO A Pos UNIT NUMBER [id number] Status RETURNED FROM ISSUE Blood Bank Product RED BLOOD CELLS PRODUCT CODE [id number] CROSSMATCH COMPATIBLE Unit ABO A Pos UNIT NUMBER [id number] Status RETURNED FROM ISSUE Blood Bank Product RED BLOOD CELLS PRODUCT CODE [id number] Specimen Performing Laboratory [employer] [place] POC ACTIVATED CLOTTING TIME (07/12/2017 9:55 AM)Only the most recent of3 resultswithin the time period is included. Component Value Ref Range Activated Clotting Time 164Comment: TESTED AT [address] sec [address] Specimen Performing Laboratory Blood [address] [address] PT/aPTT (07/12/2017 4:01 AM)Only the most recent of2 resultswithin the time period is included. Component Value Ref Range Protime 13.0 11.7 - 14.7 seconds INR 1.0 <=5.9 PTT 29.2 22.5 - 36.0 seconds Specimen Performing Laboratory Blood - Arm, Right [address] [address] Narrative RECOMMENDED COUMADIN/WARFARIN INR THERAPY RANGES STANDARD DOSE: 2.0 - 3.0 Includes: PROPHYLAXIS for venous thrombosis, systemic embolization; TREATMENT for venous thrombosis and/or pulmonary embolus. HIGH RISK: Target INR is 2.5-3.5 for patients with mechanical heart valves. Urinalysis w/Microscopic + Reflex to Culture (07/10/2017 2:34 PM) Component Value Ref Range Color, UA Yellow Clarity, UA Clear Specific Rector, UA 1.049 (H) 1.001 - 1.035 pH, [...] Specimen Performing Laboratory Urine - Urine, Voided [address] [address] PFA-100 (07/10/2017 11:32 AM) Component Value Ref Range COL/EPI Closure Time >300 (H) 78 - 191 Seconds COL/ADP Closure Time 76 43 - 122 Seconds Platelets 188 150 - 450 K/CU MM Specimen Performing Laboratory Blood [address] [address] ECHOCARDIOGRAM REPORT - SCAN (07/10/2017 9:23 AM)B-type Natriuretic Factor (BNP ) (07/10/2017 8:10 AM)Only the most recent of2 resultswithin the time period is included. Component Value Ref Range BNP 86 0 - 100 pg/mL Specimen Performing Laboratory Blood [facility] [address] [address] 2D Echo W/Doppler(CW/PW/Color) (07/10/2017 3:24 AM) Component Value Ref Range Ejection Fraction Specimen Performing Laboratory SLE ECHO HEARTLAB MKCKESSON CPACS Narrative Transthoracic Echocardiography Report (TTE) Demographics Patient Name APARNA MOTA Date of Study 07/10/2017 LESVIA [id number] Female Visit Number [id number] Room Number 7A07 Number Date of Birth1955Referring Physician Sammie Lyle Age61 year(s)Community Health Advocate Ángel Barker, [facility] AnalystAlex Jennifer InterpretingPhysician EMELI Garner Procedure [...] normal (55-60%) . Left AtriumLA size is dpdw-lf-rxznfimalw enlarged . Right VentricleNormal right ventricle structure [...] External Ris In - 07/10/2017 9:00 AM GROUP CARE WORKER Transthoracic Echocardiography Report (TTE) Demographics Patient Name APARNA MOTA Date of Study 07/10/2017 LESVIA Gender Female Visit Number [id number] Race Unknown Room Number 7A07 Number Date of 1955 Referring Physician Sammie Lyle Age 61 year(s) Community Health Advocate Ángel Barker, [facility] Fisheries Technical Officer Niraj Rodriguez Interpreting Physician EMELI Garner Procedure [...] (55-60%) . Left Atrium LA size is drvo-iu-kcejjtebce enlarged . Right Ventricle Normal right ventricle [...] 6.47 l/min LVOT CI: 3.2 l/min/m^2 after 04/03/2017
--- OUTSIDE RECORDS SUMMARY | 2018-04-04 13:15 | XMS REPORT ---
:1955 Author Organization [facility] Address [address] [place] [address] [address] Care Team Providers Name Role Phone TYSON [...] PATIENT ID: FOR DISSECTION , r/o Endoleak [id number] Addendum: I agree with the previously described non vascular findings. Signed: Rachna Watson MDReport Verified Date/Time: 08/06/2017 10:39:07 Reading Location: [place] [address] Angio Body Reading RoomAddendum EndsFINAL REPORT CT [...] of the progression/resolution of the haematoma. Surgical clay house worker was paged to inform this finding at the time of dictation. Dr. Dyer was contacted to discuss this finding. 5. An addendum will be dictated by the Road Oiling Truck Driver Radiologist regarding the nonvascular findings. Signed: Willis Washington Verified Date/Time: 08/05/2017 19:03:58 Reading Location: [place] [address] Cardiology MRI -GLUCOSE METER 2017-08-05 13:04:00 Test Item Value Reference Range Comments POC-GLUCOSE METER (BEAKER) (test 100 mg/dL 70-110 TESTED AT [facility] [address] [facility] bidh=9697) [facility] [address] RAD, CHEST, 1 VIEW, NON [id number] 08:46:00Reason for exam:->s/p TEVAR with linesShould this [...] Trimble Verified Date/Time: 08/05/2017 08:46:21 Reading Location: [facility] Radiology Reading Room Electronically signed by: GONZALEZ TRIMBLE M.D. on 08:46 AMPOCT-GLUCOSE [id number] 08:11:00 Test Item Value Reference Range Comments POC-GLUCOSE METER (BEAKER) 111 mg/dL 70-110 TESTED AT [facility] [address] (test cggo=8454) [facility] [address] [id number] 07:30:00 Test Item Value Reference Range Comments PHOSPHORUS (BEAKER) (test obuv=085) 4.1 mg/dL 2.3-4.7 [id number] 07:30:00 Test Item Value Reference Range Comments MAGNESIUM (BEAKER) (test lzft=342) 1.6 mg/dL 1.6-2.6 BASIC METABOLIC [id number] 07:30:00 Test Item Value Reference Range Comments SODIUM (BEAKER) (test 138 meq/L 136-145 qxmb=937) POTASSIUM (BEAKER) (test 4.5 meq/L 3.5-5.1 vale=791) CHLORIDE (BEAKER) (test 106 meq/L 98-107 nlit=370) CO2 (BEAKER) (test 23 meq/L 22-29 ihie=468) BLOOD UREA NITROGEN 12 mg/dL 7-21 (BEAKER) (test oyur=988) CREATININE (BEAKER) (test 1.05 mg/dL 0.57-1.25 zfgy=128) GLUCOSE RANDOM (BEAKER) 105 mg/dL 70-105 (test minv=848) CALCIUM (BEAKER) (test 9.3 mg/dL 8.4-10.2 npkp=833) EGFR (BEAKER) (test 53 mL/min/1.73 sq m ESTIMATED GFR IS NOT aoik=9538) ACCURATE CREATININE CLEARANCE IN PREDICTING GLOMERULAR FILTRATION RATE. ESTIMATED GFR IS NOT APPLICABLE FOR DIALYSIS PATIENTS. [id number] 06:50:00 Test Item Value Reference Range Comments PARTIAL THROMBOPLASTIN TIME (BEAKER) (test 30.7 seconds 22.5-36.0 vste=287) PROTHROMBIN [id number] 06:49:00 Test Item Value Reference Range Comments PROTIME (BEAKER) (test svai=730) 13.2 seconds 11.7-14.7 INR (BEAKER) (test ufof=909) 1.0 <=5.9 RECOMMENDED COUMADIN/WARFARIN INR THERAPY RANGESSTANDARD DOSE: 2.0 - 3.0 Includes: PROPHYLAXIS forvenous thrombosis, systemic embolization; TREATMENT for venous thrombosis and/or pulmonary embolus.HIGH RISK: Target INR is 2.5-3.5 for patients with mechanical heart valves.CBC (HEMOGRAM ONLY)2017-08-05 06:36:00 Test Item Value Reference Range Comments WHITE BLOOD CELL COUNT (BEAKER) (test ljgm=289) 5.5 K/ L 3.5-10.5 RED BLOOD CELL COUNT (BEAKER) (test ragw=121) 3.13 M/ L 3.93-5.22 HEMOGLOBIN (BEAKER) (test powl=226) 9.1 GM/DL 11.2-15.7 HEMATOCRIT (BEAKER) (test zrcr=753) 30.2 % 34.1-44.9 MEAN CORPUSCULAR VOLUME (BEAKER) (test pefi=742) 96.5 fL 79.4-94.8 MEAN CORPUSCULAR HEMOGLOBIN (BEAKER) (test 29.1 pg 25.6-32.2 dawa=811) MEAN CORPUSCULAR HEMOGLOBIN CONC (BEAKER) (test 30.1 GM/DL 32.2-35.5 gbcv=916) RED CELL DISTRIBUTION WIDTH (BEAKER) (test 17.2 % 11.7-14.4 rwxn=308) PLATELET COUNT (BEAKER) (test cruv=719) 186 K/CU MM 150-450 MEAN PLATELET VOLUME (BEAKER) (test ohuq=338) 12.0 fL 9.4-12.3 NUCLEATED RED BLOOD CELLS (BEAKER) (test 0 /100 WBC 0-0 snua=927) POCT-GLUCOSE [id number] 18:25:00 Test Item Value Reference Range Comments POC-GLUCOSE METER (BEAKER) 123 mg/dL 70-110 TESTED AT [facility] [address] [facility] (test vuey=7483) [facility] [address] POCT-GLUCOSE [id number] 13:07:00 Test Item Value Reference Range Comments POC-GLUCOSE METER (BEAKER) 154 mg/dL 70-110 TESTED AT [place] [id number] [facility] (test kaur=1649) [facility] [address] RAD, CHEST, 1 VIEW, NON [id number] 08:22:00Reason for exam:->s/p TEVAR with linesShould this be performed at the bedside?->YesFINAL REPORT Chest one view compared to August 03 Discussion: Right PICC line and descending thoracic aorta after noted. Lungs clear. Heart size normal. No effusion or pneumothorax. Signed: Tad Frosteport Verified Date/Time: 08/04/2017 08:22:31 Reading Location: [address] Neuro Reading Room POCT- GLUCOSE [id number] 07:54:00 Test Item Value Reference Range Comments POC-GLUCOSE METER (BEAKER) 113 mg/dL 70-110 TESTED AT [facility] [address] [facility] (test xsbt=7073) [facility] [address] [id number] 06:16:00 Test Item Value Reference Range Comments PHOSPHORUS (BEAKER) (test wtdq=766) 3.8 mg/dL 2.3-4.7 [id number] 06:16:00 Test Item Value Reference Range Comments MAGNESIUM (BEAKER) (test dfhg=259) 1.7 mg/dL 1.6-2.6 BASIC METABOLIC [id number] 06:16:00 Test Item Value Reference Range Comments SODIUM (BEAKER) (test 137 meq/L 136-145 hyae=818) POTASSIUM (BEAKER) (test 4.4 meq/L 3.5-5.1 fjzr=089) CHLORIDE (BEAKER) (test 106 meq/L 98-107 andn=772) CO2 (BEAKER) (test 23 meq/L 22-29 pjrl=120) BLOOD UREA NITROGEN 12 mg/dL 7-21 (BEAKER) (test pfce=661) CREATININE (BEAKER) (test 0.90 mg/dL 0.57-1.25 xxme=722) GLUCOSE RANDOM (BEAKER) 99 mg/dL 70-105 (test kgfp=437) CALCIUM (BEAKER) (test 9.3 mg/dL 8.4-10.2 innq=912) EGFR (BEAKER) (test 63 mL/min/1.73 sq m ESTIMATED GFR IS NOT cnwf=9105) ACCURATE CREATININE CLEARANCE IN PREDICTING GLOMERULAR FILTRATION RATE. ESTIMATED GFR IS NOT APPLICABLE FOR DIALYSIS PATIENTS. [id number] 05:49:00 Test Item Value Reference Range Comments PARTIAL THROMBOPLASTIN TIME (BEAKER) (test 31.2 seconds 22.5-36.0 sepq=191) PROTHROMBIN [id number] 05:48:00 Test Item Value Reference Range Comments PROTIME (BEAKER) (test egrw=611) 13.8 seconds 11.7-14.7 INR (BEAKER) (test nzwd=888) 1.1 <=5.9 RECOMMENDED COUMADIN/WARFARIN INR THERAPY RANGESSTANDARD DOSE: 2.0 - 3.0 Includes: PROPHYLAXIS forvenous thrombosis, systemic embolization; TREATMENT for venous thrombosis and/or pulmonary embolus.HIGH RISK: Target INR is 2.5-3.5 for patients with mechanical heart valves.CBC (HEMOGRAM ONLY)2017-08-04 05:23:00 Test Item Value Reference Range Comments WHITE BLOOD CELL COUNT (BEAKER) (test mbax=456) 4.7 K/ L 3.5-10.5 RED BLOOD CELL COUNT (BEAKER) (test diws=554) 3.05 M/ L 3.93-5.22 HEMOGLOBIN (BEAKER) (test benq=376) 9.0 GM/DL 11.2-15.7 HEMATOCRIT (BEAKER) (test swmw=204) 29.2 % 34.1-44.9 MEAN CORPUSCULAR VOLUME (BEAKER) (test sqpn=317) 95.7 fL 79.4-94.8 MEAN CORPUSCULAR HEMOGLOBIN (BEAKER) (test 29.5 pg 25.6-32.2 rzib=738) MEAN CORPUSCULAR HEMOGLOBIN CONC (BEAKER) (test 30.8 GM/DL 32.2-35.5 rxff=015) RED CELL DISTRIBUTION WIDTH (BEAKER) (test 16.9 % 11.7-14.4 tfqf=914) PLATELET COUNT (BEAKER) (test slww=517) 182 K/CU MM 150-450 MEAN PLATELET VOLUME (BEAKER) (test ejkh=849) 11.9 fL 9.4-12.3 NUCLEATED RED BLOOD CELLS (BEAKER) (test 0 /100 WBC 0-0 ieca=364) BLOOD [id number] 23:00:00 Test Item Value Reference Range Comments CULTURE (BEAKER) (test nfiw=2858) No growth in 5 days BLOOD [id number] 23:00:00 Test Item Value Reference Range Comments CULTURE (BEAKER) (test nmuk=5179) No growth in 5 days POCT-GLUCOSE [id number] 21:48:00 Test Item Value Reference Range Comments POC-GLUCOSE METER (BEAKER) 131 mg/dL 70-110 TESTED AT [address] (test bbmm=2117) [facility] [address] POCT-GLUCOSE [id number] 18:12:00 Test Item Value Reference Range Comments POC-GLUCOSE METER (BEAKER) 106 mg/dL 70-110 TESTED AT [address] (test bmtt=1051) [facility] [address] BLOOD [id number] 10:00:00 Test Item Value Reference Range Comments CULTURE (BEAKER) (test cxlc=7481) No growth in 5 days RAD, CHEST, 1 VIEW, NON [id number] 08:58:00Reason for exam:->s/p TEVAR with linesShould this be performed at the bedside?->YesFINAL REPORT Chest one view compared to August 02 Discussion: Descending aortic grafts and right-sided PICC line are again noted. Lungs clear. No effusion or pneumothorax. Signed: Tad Frost Verified Date/Time: 04/2017 08:58:38 Reading Location: [address] Reading Room POCT- GLUCOSE [id number] 08:18:00 Test Item Value Reference Range Comments POC-GLUCOSE METER (BEAKER) 144 mg/dL 70-110 TESTED AT [address] (test jycz=8073) [facility] [address] [id number] 05:30:00 Test Item Value Reference Range Comments PHOSPHORUS (BEAKER) (test mvdn=220) 4.0 mg/dL 2.3-4.7 [id number] 05:30:00 Test Item Value Reference Range Comments MAGNESIUM (BEAKER) (test avzn=099) 1.9 mg/dL 1.6-2.6 BASIC METABOLIC [id number] 05:30:00 Test Item Value Reference Range Comments SODIUM (BEAKER) (test 140 meq/L 136-145 hxdy=023) POTASSIUM (BEAKER) (test 4.3 meq/L 3.5-5.1 okpv=280) CHLORIDE (BEAKER) (test 108 meq/L 98-107 imyq=652) CO2 (BEAKER) (test 23 meq/L 22-29 kgpy=698) BLOOD UREA NITROGEN 13 mg/dL 7-21 (BEAKER) (test vbit=832) CREATININE (BEAKER) (test 0.91 mg/dL 0.57-1.25 plfg=625) GLUCOSE RANDOM (BEAKER) 117 mg/dL 70-105 (test riab=028) CALCIUM (BEAKER) (test 9.4 mg/dL 8.4-10.2 llxk=628) EGFR (BEAKER) (test 63 mL/min/1.73 sq m ESTIMATED GFR IS NOT fqon=6226) ACCURATE CREATININE CLEARANCE IN PREDICTING GLOMERULAR FILTRATION RATE. ESTIMATED GFR IS NOT APPLICABLE FOR DIALYSIS PATIENTS. [id number] 05:02:00 Test Item Value Reference Range Comments PARTIAL THROMBOPLASTIN TIME (BEAKER) (test 32.3 seconds 22.5-36.0 wsxj=186) CBC (HEMOGRAM ONLY)2017-08-03 05:01:00 Test Item Value Reference Range Comments WHITE BLOOD CELL COUNT (BEAKER) (test jxhi=617) 5.0 K/ L 3.5-10.5 RED BLOOD CELL COUNT (BEAKER) (test xsqu=796) 3.13 M/ L 3.93-5.22 HEMOGLOBIN (BEAKER) (test dsdz=625) 9.3 GM/DL 11.2-15.7 HEMATOCRIT (BEAKER) (test dlse=449) 29.9 % 34.1-44.9 MEAN CORPUSCULAR VOLUME (BEAKER) (test tjxy=175) 95.5 fL 79.4-94.8 MEAN CORPUSCULAR HEMOGLOBIN (BEAKER) (test 29.7 pg 25.6-32.2 sios=413) MEAN CORPUSCULAR HEMOGLOBIN CONC (BEAKER) (test 31.1 GM/DL 32.2-35.5 vubf=772) RED CELL DISTRIBUTION WIDTH (BEAKER) (test 16.8 % 11.7-14.4 xebp=357) PLATELET COUNT (BEAKER) (test ffqk=612) 195 K/CU MM 150-450 MEAN PLATELET VOLUME (BEAKER) (test nagp=552) 12.1 fL 9.4-12.3 NUCLEATED RED BLOOD CELLS (BEAKER) (test 0 /100 WBC 0-0 ggta=559) PROTHROMBIN [id number] 05:01:00 Test Item Value Reference Range Comments PROTIME (BEAKER) (test vddt=315) 13.8 seconds 11.7-14.7 INR (BEAKER) (test kcgv=348) 1.1 <=5.9 RECOMMENDED COUMADIN/WARFARIN INR THERAPY RANGESSTANDARD DOSE: 2.0 - 3.0 Includes: PROPHYLAXIS forvenous thrombosis, systemic embolization; TREATMENT for venous thrombosis and/or pulmonary embolus.HIGH RISK: Target INR is 2.5-3.5 for patients with mechanical heart valves.POCT-GLUCOSE [id number] 21:22:00 Test Item Value Reference Range Comments POC-GLUCOSE METER (BEAKER) 138 mg/dL 70-110 TESTED AT [address] (test vyxt=3835) [place] [address] POCT-GLUCOSE [id number] 18:28:00 Test Item Value Reference Range Comments POC-GLUCOSE METER (BEAKER) 160 mg/dL 70-110 TESTED AT [address] (test bpjv=1982) [place] [id number] POCT-GLUCOSE [id number] 12:23:00 Test Item Value Reference Range Comments POC-GLUCOSE METER (BEAKER) 141 mg/dL 70-110 TESTED AT [address] (test wpbh=6381) [place] [address] RAD, CHEST, 1 VIEW, NON [id number] 11:08:00Reason for exam:->post picc line insertionShould this [...] MDReport Verified Date/Time: 08/02/2017 11:08:46 Reading Location: [facility] Radiology Reading Room BLOOD [id number] 11:00:00 Test Item Value Reference Range Comments CULTURE (BEAKER) From Anaerobic Bottle Only (test hemn=2862) Same organism has been isolated from cultures(s) of the same body site within 3 days. Repeat identification and susceptibility testing performed only after consultation with the clinical microbiology laboratory.Refer to previous culture ofCoagulase negative Staphylococcus GRAM STAIN RESULT From anaerobic bottle (BEAKER) (test only: gram positive vkww=6382) cocci in clusters BLOOD [id number] 10:00:00 Test Item Value Reference Range Comments CULTURE (BEAKER) (test epad=6517) No growth in 5 days RAD, CHEST, 1 VIEW, NON [id number] 09:02:00Reason for exam:->s/p TEVAR with linesShould this [...] TEDDY Parson Radiology Reading Room POCT- GLUCOSE [id number] 08:54:00 Test Item Value Reference Range Comments POC-GLUCOSE METER (BEAKER) 129 mg/dL 70-110 TESTED AT [facility] [address] [place] [address] (test lkjo=2674) [facility] [address] [id number] 06:06:00 Test Item Value Reference Range Comments PHOSPHORUS (BEAKER) (test cxoe=815) 3.4 mg/dL 2.3-4.7 [id number] 06:06:00 Test Item Value Reference Range Comments MAGNESIUM (BEAKER) (test wwyn=590) 1.4 mg/dL 1.6-2.6 BASIC METABOLIC [id number] 06:06:00 Test Item Value Reference Range Comments SODIUM (BEAKER) (test 137 meq/L 136-145 mwiy=354) POTASSIUM (BEAKER) (test 4.2 meq/L 3.5-5.1 xjey=039) CHLORIDE (BEAKER) (test 106 meq/L 98-107 zowq=482) CO2 (BEAKER) (test 24 meq/L 22-29 obsi=372) BLOOD UREA NITROGEN 17 mg/dL 7-21 (BEAKER) (test vulm=790) CREATININE (BEAKER) (test 0.91 mg/dL 0.57-1.25 ikvr=106) GLUCOSE RANDOM (BEAKER) 123 mg/dL 70-105 (test qlad=462) CALCIUM (BEAKER) (test 9.2 mg/dL 8.4-10.2 pegr=716) EGFR (BEAKER) (test 63 mL/min/1.73 sq m ESTIMATED GFR IS NOT uxnv=4810) ACCURATE CREATININE CLEARANCE IN PREDICTING GLOMERULAR FILTRATION RATE. ESTIMATED GFR IS NOT APPLICABLE FOR DIALYSIS PATIENTS. PROTHROMBIN TIME/[id number] 05:23:00 Test Item Value Reference Range Comments PROTIME (BEAKER) (test bcgs=940) 13.2 seconds 11.7-14.7 INR (BEAKER) (test kbkd=571) 1.0 <=5.9 RECOMMENDED COUMADIN/WARFARIN INR THERAPY RANGESSTANDARD DOSE: 2.0 - 3.0 Includes: PROPHYLAXIS forvenous thrombosis, systemic embolization; TREATMENT for venous thrombosis and/or pulmonary embolus.HIGH RISK: Target INR is 2.5-3.5 for patients with mechanical heart valves.[id number] 05:23:00 Test Item Value Reference Range Comments PARTIAL THROMBOPLASTIN TIME (BEAKER) (test 29.1 seconds 22.5-36.0 cvkd=314) CBC (HEMOGRAM ONLY)2017-08-02 05:16:00 Test Item Value Reference Range Comments WHITE BLOOD CELL COUNT (BEAKER) (test gapr=081) 4.8 K/ L 3.5-10.5 RED BLOOD CELL COUNT (BEAKER) (test feei=263) 3.22 M/ L 3.93-5.22 HEMOGLOBIN (BEAKER) (test avqm=227) 9.4 GM/DL 11.2-15.7 HEMATOCRIT (BEAKER) (test uhyy=198) 30.6 % 34.1-44.9 MEAN CORPUSCULAR VOLUME (BEAKER) (test xowz=581) 95.0 fL 79.4-94.8 MEAN CORPUSCULAR HEMOGLOBIN (BEAKER) (test 29.2 pg 25.6-32.2 nhel=616) MEAN CORPUSCULAR HEMOGLOBIN CONC (BEAKER) (test 30.7 GM/DL 32.2-35.5 hggj=510) RED CELL DISTRIBUTION WIDTH (BEAKER) (test 16.6 % 11.7-14.4 orrx=304) PLATELET COUNT (BEAKER) (test apmw=225) 197 K/CU MM 150-450 MEAN PLATELET VOLUME (BEAKER) (test ojas=487) 12.1 fL 9.4-12.3 NUCLEATED RED BLOOD CELLS (BEAKER) (test 0 /100 WBC 0-0 hydx=433) POCT-GLUCOSE [id number] 21:07:00 Test Item Value Reference Range Comments POC-GLUCOSE METER (BEAKER) 165 mg/dL 70-110 TESTED AT [address] (test enol=3618) [facility] [address] VANCOMYCIN LEVEL, [id number] 20:31:00 Test Item Value Reference Range Comments VANCOMYCIN TROUGH (BEAKER) (test lpyn=277) 12.2 ug/mL 10.0-20.0 POCT-GLUCOSE [id number] 17:41:00 Test Item Value Reference Range Comments POC-GLUCOSE METER (BEAKER) 141 mg/dL 70-110 TESTED AT [address] (test drqh=2731) [facility] [address] POCT-GLUCOSE [id number] 12:07:00 Test Item Value Reference Range Comments POC-GLUCOSE METER (BEAKER) 217 mg/dL 70-110 TESTED AT [address] (test bxgh=1868) [facility] [address] RAD, CHEST, 1 VIEW, NON [id number] 09:13:00Reason for exam:->s/p TEVAR with linesShould this [...] Avalos Verified Date/Time: 08/01/2017 09:13:59 Reading Location: [facility] Radiology Reading Room POCT- GLUCOSE [id number] 08:36:00 Test Item Value Reference Range Comments POC-GLUCOSE METER (BEAKER) 158 mg/dL 70-110 TESTED AT [facility] [address] (test bfhn=7871) [facility] [address] PROTHROMBIN [id number] 07:04:00 Test Item Value Reference Range Comments PROTIME (BEAKER) (test xqzd=838) 13.5 seconds 11.7-14.7 INR (BEAKER) (test rwij=371) 1.0 <=5.9 RECOMMENDED COUMADIN/WARFARIN INR THERAPY RANGESSTANDARD DOSE: 2.0 - 3.0 Includes: PROPHYLAXIS forvenous thrombosis, systemic embolization; TREATMENT for venous thrombosis and/or pulmonary embolus.HIGH RISK: Target INR is 2.5-3.5 for patients with mechanical heart valves.[id number] 07:04:00 Test Item Value Reference Range Comments PARTIAL THROMBOPLASTIN TIME (BEAKER) (test 31.3 seconds 22.5-36.0 yhbc=670) [id number] 05:38:00 Test Item Value Reference Range Comments PHOSPHORUS (BEAKER) (test gcds=078) 3.2 mg/dL 2.3-4.7 [id number] 05:38:00 Test Item Value Reference Range Comments MAGNESIUM (BEAKER) (test hjeb=809) 1.8 mg/dL 1.6-2.6 BASIC METABOLIC [id number] 05:38:00 Test Item Value Reference Range Comments SODIUM (BEAKER) (test 140 meq/L 136-145 tjwy=897) POTASSIUM (BEAKER) (test 4.0 meq/L 3.5-5.1 gfcz=861) CHLORIDE (BEAKER) (test 106 meq/L 98-107 dhzv=361) CO2 (BEAKER) (test 24 meq/L 22-29 stot=719) BLOOD UREA NITROGEN 21 mg/dL 7-21 (BEAKER) (test ukjz=694) CREATININE (BEAKER) (test 0.95 mg/dL 0.57-1.25 zrva=238) GLUCOSE RANDOM (BEAKER) 127 mg/dL 70-105 (test skqx=235) CALCIUM (BEAKER) (test 9.2 mg/dL 8.4-10.2 zhkv=170) EGFR (BEAKER) (test 60 mL/min/1.73 sq m ESTIMATED GFR IS NOT hyrs=4334) ACCURATE CREATININE CLEARANCE IN PREDICTING GLOMERULAR FILTRATION RATE. ESTIMATED GFR IS NOT APPLICABLE FOR DIALYSIS PATIENTS. CBC (HEMOGRAM ONLY)2017-08-01 05:02:00 Test Item Value Reference Range Comments WHITE BLOOD CELL COUNT (BEAKER) (test ouqs=144) 5.5 K/ L 3.5-10.5 RED BLOOD CELL COUNT (BEAKER) (test oylc=772) 3.37 M/ L 3.93-5.22 HEMOGLOBIN (BEAKER) (test rqug=960) 9.9 GM/DL 11.2-15.7 HEMATOCRIT (BEAKER) (test odpp=824) 31.9 % 34.1-44.9 MEAN CORPUSCULAR VOLUME (BEAKER) (test samv=253) 94.7 fL 79.4-94.8 MEAN CORPUSCULAR HEMOGLOBIN (BEAKER) (test 29.4 pg 25.6-32.2 xybj=046) MEAN CORPUSCULAR HEMOGLOBIN CONC (BEAKER) (test 31.0 GM/DL 32.2-35.5 sngv=532) RED CELL DISTRIBUTION WIDTH (BEAKER) (test 16.3 % 11.7-14.4 mzpc=451) PLATELET COUNT (BEAKER) (test vthp=176) 199 K/CU MM 150-450 MEAN PLATELET VOLUME (BEAKER) (test bcct=349) 12.5 fL 9.4-12.3 NUCLEATED RED BLOOD CELLS (BEAKER) (test 0 /100 WBC 0-0 sylb=670) BLOOD [id number] 23:00:00 Test Item Value Reference Range Comments CULTURE (BEAKER) (test xfja=7419) No growth in 5 days POCT-GLUCOSE [id number] 20:45:00 Test Item Value Reference Range Comments POC-GLUCOSE METER (BEAKER) 160 mg/dL 70-110 TESTED AT [address] (test iugp=0643) [facility] [address] POCT-GLUCOSE [id number] 17:17:00 Test Item Value Reference Range Comments POC-GLUCOSE METER (BEAKER) 165 mg/dL 70-110 TESTED AT [address] (test vhpb=2324) [place] [address] RAD, CHEST, 1 VIEW, NON [id number] 13:48:00Reason for exam:->s/p TEVAR with linesShould this [...] Shepard Verified Date/Time: 2016 13:48:33 Reading Location: [facility] C0W Consult Reading Room POCT-GLUCOSE [id number] 11:51:00 Test Item Value Reference Range Comments POC-GLUCOSE METER (BEAKER) 139 mg/dL 70-110 TESTED AT [place] [id number] [facility] (test smgg=8710) [facility] [address] POCT-GLUCOSE [id number] 09:01:00 Test Item Value Reference Range Comments POC-GLUCOSE METER (BEAKER) 152 mg/dL 70-110 TESTED AT [facility] [address] (test qtkc=5315) [facility] [address] [id number] 05:29:00 Test Item Value Reference Range Comments PHOSPHORUS (BEAKER) (test myod=555) 3.8 mg/dL 2.3-4.7 [id number] 05:29:00 Test Item Value Reference Range Comments MAGNESIUM (BEAKER) (test ywod=184) 1.9 mg/dL 1.6-2.6 BASIC METABOLIC [id number] 05:29:00 Test Item Value Reference Range Comments SODIUM (BEAKER) (test 139 meq/L 136-145 ciiz=501) POTASSIUM (BEAKER) (test 3.8 meq/L 3.5-5.1 fsbc=992) CHLORIDE (BEAKER) (test 107 meq/L 98-107 ukdr=274) CO2 (BEAKER) (test 25 meq/L 22-29 ibnb=815) BLOOD UREA NITROGEN 22 mg/dL 7-21 (BEAKER) (test fpmr=691) CREATININE (BEAKER) (test 0.86 mg/dL 0.57-1.25 fcew=379) GLUCOSE RANDOM (BEAKER) 117 mg/dL 70-105 (test kqrn=371) CALCIUM (BEAKER) (test 9.2 mg/dL 8.4-10.2 zcqa=070) EGFR (BEAKER) (test 67 mL/min/1.73 sq m ESTIMATED GFR IS NOT nfji=6348) ACCURATE CREATININE CLEARANCE IN PREDICTING GLOMERULAR FILTRATION RATE. ESTIMATED GFR IS NOT APPLICABLE FOR DIALYSIS PATIENTS. [id number] 05:18:00 Test Item Value Reference Range Comments PARTIAL THROMBOPLASTIN TIME (BEAKER) (test 29.9 seconds 22.5-36.0 eopo=556) PROTHROMBIN TIME/[id number] 05:17:00 Test Item Value Reference Range Comments PROTIME (BEAKER) (test avrs=977) 13.4 seconds 11.7-14.7 INR (BEAKER) (test apqc=432) 1.0 <=5.9 RECOMMENDED COUMADIN/WARFARIN INR THERAPY RANGESSTANDARD DOSE: 2.0 - 3.0 Includes: PROPHYLAXIS forvenous thrombosis, systemic embolization; TREATMENT for venous thrombosis and/or pulmonary embolus.HIGH RISK: Target INR is 2.5-3.5 for patients with mechanical heart valves.CBC (HEMOGRAM ONLY)2017-07-31 05:02:00 Test Item Value Reference Range Comments WHITE BLOOD CELL COUNT (BEAKER) (test pxmr=734) 5.5 K/ L 3.5-10.5 RED BLOOD CELL COUNT (BEAKER) (test wmsa=350) 3.35 M/ L 3.93-5.22 HEMOGLOBIN (BEAKER) (test evhf=299) 9.8 GM/DL 11.2-15.7 HEMATOCRIT (BEAKER) (test nwmf=417) 31.7 % 34.1-44.9 MEAN CORPUSCULAR VOLUME (BEAKER) (test nsqh=438) 94.6 fL 79.4-94.8 MEAN CORPUSCULAR HEMOGLOBIN (BEAKER) (test 29.3 pg 25.6-32.2 gfuw=819) MEAN CORPUSCULAR HEMOGLOBIN CONC (BEAKER) (test 30.9 GM/DL 32.2-35.5 hhiq=797) RED CELL DISTRIBUTION WIDTH (BEAKER) (test 16.3 % 11.7-14.4 zcac=317) PLATELET COUNT (BEAKER) (test mfmg=848) 206 K/CU MM 150-450 MEAN PLATELET VOLUME (BEAKER) (test obvs=691) 12.3 fL 9.4-12.3 NUCLEATED RED BLOOD CELLS (BEAKER) (test 0 /100 WBC 0-0 tvum=820) POCT-GLUCOSE [id number] 20:45:00 Test Item Value Reference Range Comments POC-GLUCOSE METER (BEAKER) 110 mg/dL 70-110 TESTED AT [facility] [address] [facility] (test bmto=4653) [facility] [address] POCT-GLUCOSE [id number] 18:38:00 Test Item Value Reference Range Comments POC-GLUCOSE METER (BEAKER) 126 mg/dL 70-110 TESTED AT [facility] [address] [place] [address] (test fdgg=1339) [facility] [address] FL, ESOPH, SWALLOW FUNCTION, WITH CINE OR [id number] 14:35:00Reason for exam:->AspirationFINAL REPORT Modified barium swallow [...] Verified Date/ Time: 07/30/2017 14:35:49 Reading Location: [address] Ortho Consult Reading Room POCT -GLUCOSE [id number] 12:14:00 Test Item Value Reference Range Comments POC-GLUCOSE METER (BEAKER) 172 mg/dL 70-110 TESTED AT [address] (test jjlz=0032) [facility] [address] MISCELLANEOUS LAB [id number] 11:23:00 Test Item Value Reference Range Comments SCAN RESULT (test beft=[id number]) Result comments: Coagulase Negative Staphylococcus Species (CoNS) [...] required. This sample was tested at the [facility] Clinical Microbiology Laboratory using the [employer] Blood Culture ID Panel. This test is FDA cleared for in vitro diagnostic use and has been verified and approved by the [facility] Clinical Microbiology laboratory for clinical use. Reference Range: Not DetectedRAD, CHEST, 1 VIEW, NON [id number] 05:19:00Reason for exam:->s/p TEVAR with linesShould this be performed at the bedside?->YesFINAL REPORT Comparison exam: 2016 Mild right basilar atelectasis unchanged. No pneumothorax. Normal cardiomediastinal contours. Right IJ line terminates in the right atrium. NG tube extends into the abdomen. Signed: Elliot [place] Verified Date /Time: 07/30/2017 05:19:21 Reading Location: [address] Ortho Consult Reading Room 05 :19 [id number] 04:50:00 Test Item Value Reference Range Comments PHOSPHORUS (BEAKER) (test awmc=419) 3.3 mg/dL 2.3-4.7 [id number] 04:50:00 Test Item Value Reference Range Comments MAGNESIUM (BEAKER) (test qzpm=346) 1.9 mg/dL 1.6-2.6 BASIC METABOLIC [id number] 04:50:00 Test Item Value Reference Range Comments SODIUM (BEAKER) (test 140 meq/L 136-145 lmkh=848) POTASSIUM (BEAKER) (test 3.9 meq/L 3.5-5.1 ygsz=759) CHLORIDE (BEAKER) (test 106 meq/L 98-107 wiea=100) CO2 (BEAKER) (test 26 meq/L 22-29 jsne=353) BLOOD UREA NITROGEN 30 mg/dL 7-21 (BEAKER) (test zhck=834) CREATININE (BEAKER) (test 0.91 mg/dL 0.57-1.25 hotm=806) GLUCOSE RANDOM (BEAKER) 150 mg/dL 70-105 (test rczg=381) CALCIUM (BEAKER) (test 9.0 mg/dL 8.4-10.2 bqzz=677) EGFR (BEAKER) (test 63 mL/min/1.73 sq m ESTIMATED GFR IS NOT ngbv=8691) ACCURATE CREATININE CLEARANCE IN PREDICTING GLOMERULAR FILTRATION RATE. ESTIMATED GFR IS NOT APPLICABLE FOR DIALYSIS PATIENTS. [id number] 04:37:00 Test Item Value Reference Range Comments PARTIAL THROMBOPLASTIN TIME (BEAKER) (test 28.1 seconds 22.5-36.0 bobi=812) PROTHROMBIN [id number] 04:36:00 Test Item Value Reference Range Comments PROTIME (BEAKER) (test ahml=438) 13.1 seconds 11.7-14.7 INR (BEAKER) (test cyuv=880) 1.0 <=5.9 RECOMMENDED COUMADIN/WARFARIN INR THERAPY RANGESSTANDARD DOSE: 2.0 - 3.0 Includes: PROPHYLAXIS forvenous thrombosis, systemic embolization; TREATMENT for venous thrombosis and/or pulmonary embolus.HIGH RISK: Target INR is 2.5-3.5 for patients with mechanical heart valves.CBC (HEMOGRAM ONLY)2017-07-30 04:29:00 Test Item Value Reference Range Comments WHITE BLOOD CELL COUNT (BEAKER) (test ctzg=045) 5.9 K/ L 3.5-10.5 RED BLOOD CELL COUNT (BEAKER) (test nsgt=660) 3.26 M/ L 3.93-5.22 HEMOGLOBIN (BEAKER) (test brha=253) 9.5 GM/DL 11.2-15.7 HEMATOCRIT (BEAKER) (test dzcc=326) 30.6 % 34.1-44.9 MEAN CORPUSCULAR VOLUME (BEAKER) (test ndiq=111) 93.9 fL 79.4-94.8 MEAN CORPUSCULAR HEMOGLOBIN (BEAKER) (test 29.1 pg 25.6-32.2 uxna=176) MEAN CORPUSCULAR HEMOGLOBIN CONC (BEAKER) (test 31.0 GM/DL 32.2-35.5 jpth=354) RED CELL DISTRIBUTION WIDTH (BEAKER) (test 15.9 % 11.7-14.4 rhqa=813) PLATELET COUNT (BEAKER) (test taab=479) 202 K/CU MM 150-450 MEAN PLATELET VOLUME (BEAKER) (test eixa=010) 11.8 fL 9.4-12.3 NUCLEATED RED BLOOD CELLS (BEAKER) (test 0 /100 WBC 0-0 ugog=130) POCT-GLUCOSE [id number] 00:24:00 Test Item Value Reference Range Comments POC-GLUCOSE METER (BEAKER) 151 mg/dL 70-110 TESTED AT [address] (test mkya=3554) [place] [address] VANCOMYCIN LEVEL, [id number] 21:58:00 Test Item Value Reference Range Comments VANCOMYCIN TROUGH (BEAKER) (test beoi=614) 19.2 ug/mL 10.0-20.0 Please draw before administering night time vancomycin dosePOCT-GLUCOSE [id number] 18:28:00 Test Item Value Reference Range Comments POC-GLUCOSE METER (BEAKER) 170 mg/dL 70-110 TESTED AT [address] (test kweo=8478) [place] [address] BLOOD [id number] 16:18:00 Test Item Value Reference Range Comments CULTURE (BEAKER) (test isbv=6345) Clindamycin (test code=10) Erythromycin (test code=4) Levofloxacin (test code=22) Linezolid (test code=40) Oxacillin (test code=14) Rifampin (test code=43) Tetracycline (test code=2) Trimethoprim + Sulfamethoxazole (test code=47) Vancomycin (test code=13) CULTURE (BEAKER) (test From Aerobic And ehsq=8516) Anaerobic Bottles Coagulase negative Staphylococcus GRAM STAIN RESULT (BEAKER) From aerobic and (test dzmf=2705) anaerobic bottles: gram positive cocci in clusters [...] required. This sample was tested at the [facility] Clinical Microbiology Laboratory using the [employer] - is now [employer] Blood Culture ID Panel.This test is FDA cleared for in vitro diagnostic use and has been verified and approved by [facility] for [facility]. Reference Range: Not DetectedPOCT-GLUCOSE [id number] 13:00:00 Test Item Value Reference Range Comments POC-GLUCOSE METER (BEAKER) 153 mg/dL 70-110 [facility]ED [facility] [address] [facility] (test rbur=9694) [facility] [address] RAD, ABDOMEN/KUB, 1 VIEW [id number] 09:40:00Reason for exam:->reposition of NGTShould this be performed at the bedside?->YesFINAL REPORT Abdomen one view Comparison: July 22, 2017 Reason for exam: reposition of NGT Findings: Feeding tube projects over the expected location of distal gastric body.Gas pattern appears nonspecific. Signed: Eleazar Shepard Verified Date/Time: 07/29/2017 09:40:24 Reading Location: [facility] Radiology Reading Room Electronically signed by: ELEAZAR SHEPARD M.D. on 07/29 09:40 [id number] 05:06:00 Test Item Value Reference Range Comments PHOSPHORUS (BEAKER) (test iipf=960) 3.4 mg/dL 2.3-4.7 [id number] 05:06:00 Test Item Value Reference Range Comments MAGNESIUM (BEAKER) (test qnbh=865) 2.1 mg/dL 1.6-2.6 BASIC METABOLIC [id number] 05:06:00 Test Item Value Reference Range Comments SODIUM (BEAKER) (test 143 meq/L 136-145 ttff=307) POTASSIUM (BEAKER) (test 4.0 meq/L 3.5-5.1 awby=340) CHLORIDE (BEAKER) (test 109 meq/L 98-107 zrhq=558) CO2 (BEAKER) (test 27 meq/L 22-29 pvdj=728) BLOOD UREA NITROGEN 40 mg/dL 7-21 (BEAKER) (test fsag=448) CREATININE (BEAKER) (test 1.10 mg/dL 0.57-1.25 aiwv=473) GLUCOSE RANDOM (BEAKER) 164 mg/dL 70-105 (test krob=809) CALCIUM (BEAKER) (test 9.2 mg/dL 8.4-10.2 vokm=964) EGFR (BEAKER) (test 50 mL/min/1.73 sq m ESTIMATED GFR IS NOT uxsg=9779) ACCURATE CREATININE CLEARANCE IN PREDICTING GLOMERULAR FILTRATION RATE. ESTIMATED GFR IS NOT APPLICABLE FOR DIALYSIS PATIENTS. PROTHROMBIN [id number] 04:55:00 Test Item Value Reference Range Comments PROTIME (BEAKER) (test adet=133) 13.5 seconds 11.7-14.7 INR (BEAKER) (test lsau=192) 1.0 <=5.9 RECOMMENDED COUMADIN/WARFARIN INR THERAPY RANGESSTANDARD DOSE: 2.0 - 3.0 Includes: PROPHYLAXIS forvenous thrombosis, systemic embolization; TREATMENT for venous thrombosis and/or pulmonary embolus.HIGH RISK: Target INR is 2.5-3.5 for patients with mechanical heart valves.[id number] 04:55:00 Test Item Value Reference Range Comments PARTIAL THROMBOPLASTIN TIME (BEAKER) (test 27.1 seconds 22.5-36.0 vaqu=162) RAD, CHEST, 1 VIEW, NON [id number] 04:52:00Reason for exam:->s/p TEVAR with linesShould this [...] MDReport Verified Date/Time: 07/29/2017 04:52:56 Reading Location: [place] [id number] CT Body Reading Room CBC (HEMOGRAM ONLY)2017-07-29 04:30:00 Test Item Value Reference Range Comments WHITE BLOOD CELL COUNT (BEAKER) (test dysx=901) 5.3 K/ L 3.5-10.5 RED BLOOD CELL COUNT (BEAKER) (test gefk=966) 3.49 M/ L 3.93-5.22 HEMOGLOBIN (BEAKER) (test wwpz=428) 10.1 GM/DL 11.2-15.7 HEMATOCRIT (BEAKER) (test ebif=941) 34.1 % 34.1-44.9 MEAN CORPUSCULAR VOLUME (BEAKER) (test lpgs=599) 97.7 fL 79.4-94.8 MEAN CORPUSCULAR HEMOGLOBIN (BEAKER) (test 28.9 pg 25.6-32.2 rwbs=324) MEAN CORPUSCULAR HEMOGLOBIN CONC (BEAKER) (test 29.6 GM/DL 32.2-35.5 xxyo=069) RED CELL DISTRIBUTION WIDTH (BEAKER) (test 15.9 % 11.7-14.4 ylin=231) PLATELET COUNT (BEAKER) (test xxpg=652) 219 K/CU MM 150-450 MEAN PLATELET VOLUME (BEAKER) (test ppbp=164) 12.2 fL 9.4-12.3 NUCLEATED RED BLOOD CELLS (BEAKER) (test 0 /100 WBC 0-0 venf=808) POCT-GLUCOSE [id number] 00:10:00 Test Item Value Reference Range Comments POC-GLUCOSE METER (BEAKER) 170 mg/dL 70-110 TESTED AT [address] (test rrkd=5590) [place] [address] POCT-GLUCOSE [id number] 18:09:00 Test Item Value Reference Range Comments POC-GLUCOSE METER (BEAKER) 205 mg/dL 70-110 TESTED AT [address] (test veaj=7032) [place] [address] [id number] 16:53:00 Test Item Value Reference Range Comments POTASSIUM (BEAKER) (test cpwx=748) 4.1 meq/L 3.5-5.1 PRN - repeat potassium levels every 1 hour until glucose level is less than 450 mg/[id number] 16:53:00 Test Item Value Reference Range Comments MAGNESIUM (BEAKER) (test zanx=124) 2.2 mg/dL 1.6-2.6 PRN - repeat potassium levels every 1 hour until glucose level is less than 450 mg/dLPOCT-GLUCOSE [id number] 15:17:00 Test Item Value Reference Range Comments POC-GLUCOSE METER (BEAKER) 186 mg/dL 70-110 TESTED AT [address] (test maex=5930) [place] [address] RAD, CHEST, 1 VIEW, NON [id number] 11:09:00Reason for exam:->s/p central line placementShould this [...] Verified Date/ Time: 07/28/2017 11:09:19 Reading Location: [facility] B1 C013X Ortho Consult Reading Room BLOOD [id number] 09:48:00 Test Item Value Reference Range Comments CULTURE (BEAKER) From Aerobic And Anaerobic (test nxub=1576) Bottles Same organism has been isolated from cultures(s) of the same body site and collection date. Repeat identification and susceptibility testing performed only after consultation with the clinical microbiology laboratory.Refer to previous culture ofCoagulase negative Staphylococcus GRAM STAIN RESULT From aerobic and (BEAKER) (test anaerobic bottles: qadj=9176) gram positive cocci in clusters POCT-GLUCOSE [id number] 06:26:00 Test Item Value Reference Range Comments POC-GLUCOSE METER (BEAKER) 188 mg/dL 70-110 TESTED AT [address] (test novq=1151) [facility] [address] RAD, CHEST, 1 VIEW, NON [id number] 06:02:00Reason for exam:->s/p TEVAR with linesShould this [...] MDReport Verified Date/Time: 07/28/2017 06:02:43 Reading Location: [facility] B1 C013Y CT Body Reading Room BLOOD GAS, [id number] 05: 33:00 Test Item Value Reference Range Comments PH ARTERIAL (BEAKER) (test uivn=975) 7.37 7.35-7.45 PCO2 ARTERIAL (BEAKER) (test qqbm=410) 51 mmHg 35-45 PO2 ARTERIAL (BEAKER) (test vzhi=122) 76 mmHg 80-90 O2 SATURATION ARTERIAL (BEAKER) (test jkpd=117) 95.0 % 96.0-97.0 HCO3 ARTERIAL (BEAKER) (test iztk=832) 29 mmol/L 21-29 BASE EXCESS ARTERIAL (BEAKER) (test oxak=655) 3.0 mmol/L -2.0-3.0 PATIENT TEMPERATURE (BEAKER) (test pipv=2161) 36.5 C FIO2 (BEAKER) (test agte=6280) 40.0 % Daily ABG with morning labs while patient is intubated.[id number] 05: 15:00 Test Item Value Reference Range Comments PHOSPHORUS (BEAKER) (test tnjm=637) 4.1 mg/dL 2.3-4.7 [id number] 05:15:00 Test Item Value Reference Range Comments MAGNESIUM (BEAKER) (test rwsd=607) 2.2 mg/dL 1.6-2.6 BASIC METABOLIC [id number] 05:15:00 Test Item Value Reference Range Comments SODIUM (BEAKER) (test 148 meq/L 136-145 mnrp=057) POTASSIUM (BEAKER) (test 3.7 meq/L 3.5-5.1 wtqz=625) CHLORIDE (BEAKER) (test 112 meq/L 98-107 muzw=845) CO2 (BEAKER) (test 27 meq/L 22-29 cdik=194) BLOOD UREA NITROGEN 49 mg/dL 7-21 (BEAKER) (test qupd=392) CREATININE (BEAKER) (test 1.18 mg/dL 0.57-1.25 bxed=334) GLUCOSE RANDOM (BEAKER) 154 mg/dL 70-105 (test rbow=501) CALCIUM (BEAKER) (test 9.5 mg/dL 8.4-10.2 szjg=047) EGFR (BEAKER) (test 46 mL/min/1.73 sq m ESTIMATED GFR IS NOT jalu=4291) ACCURATE CREATININE CLEARANCE IN PREDICTING GLOMERULAR FILTRATION RATE. ESTIMATED GFR IS NOT APPLICABLE FOR DIALYSIS PATIENTS. VANCOMYCIN LEVEL, [id number] 05:14:00 Test Item Value Reference Range Comments VANCOMYCIN RANDOM (BEAKER) (test djdk=737) 25.6 ug/mL Reference Range: No NormalsPROTHROMBIN [id number] 05:05:00 Test Item Value Reference Range Comments PROTIME (BEAKER) (test rlar=590) 14.1 seconds 11.7-14.7 INR (BEAKER) (test ltwk=932) 1.1 <=5.9 RECOMMENDED COUMADIN/WARFARIN INR THERAPY RANGESSTANDARD DOSE: 2.0 - 3.0 Includes: PROPHYLAXIS forvenous thrombosis, systemic embolization; TREATMENT for venous thrombosis and/or pulmonary embolus.HIGH RISK: Target INR is 2.5-3.5 for patients with mechanical heart valves.[id number] 05:05:00 Test Item Value Reference Range Comments PARTIAL THROMBOPLASTIN TIME (BEAKER) (test 25.8 seconds 22.5-36.0 uikt=339) CBC (HEMOGRAM ONLY)2017-07-28 05:00:00 Test Item Value Reference Range Comments WHITE BLOOD CELL COUNT (BEAKER) (test wmak=278) 5.1 K/ L 3.5-10.5 RED BLOOD CELL COUNT (BEAKER) (test yash=949) 3.43 M/ L 3.93-5.22 HEMOGLOBIN (BEAKER) (test iekn=636) 10.0 GM/DL 11.2-15.7 HEMATOCRIT (BEAKER) (test jbal=736) 33.5 % 34.1-44.9 MEAN CORPUSCULAR VOLUME (BEAKER) (test xtph=114) 97.7 fL 79.4-94.8 MEAN CORPUSCULAR HEMOGLOBIN (BEAKER) (test 29.2 pg 25.6-32.2 kfzu=052) MEAN CORPUSCULAR HEMOGLOBIN CONC (BEAKER) (test 29.9 GM/DL 32.2-35.5 akos=249) RED CELL DISTRIBUTION WIDTH (BEAKER) (test 15.9 % 11.7-14.4 fxfd=950) PLATELET COUNT (BEAKER) (test emdn=638) 227 K/CU MM 150-450 MEAN PLATELET VOLUME (BEAKER) (test emtn=467) 12.6 fL 9.4-12.3 NUCLEATED RED BLOOD CELLS (BEAKER) (test 0 /100 WBC 0-0 xydq=742) POCT-GLUCOSE [id number] 00:29:00 Test Item Value Reference Range Comments POC-GLUCOSE METER (BEAKER) 206 mg/dL 70-110 TESTED AT [address] (test styl=3577) [place] [id number] BLOOD GAS, [id number] 19:45:00 Test Item Value Reference Range Comments PH ARTERIAL (BEAKER) (test ydib=911) 7.41 7.35-7.45 PCO2 ARTERIAL (BEAKER) (test axac=067) 44 mmHg 35-45 PO2 ARTERIAL (BEAKER) (test msop=997) 81 mmHg 80-90 O2 SATURATION ARTERIAL (BEAKER) (test bqcf=960) 96.0 % 96.0-97.0 HCO3 ARTERIAL (BEAKER) (test ammd=148) 27 mmol/L 21-29 BASE EXCESS ARTERIAL (BEAKER) (test jelu=780) 2.0 mmol/L -2.0-3.0 PATIENT TEMPERATURE (BEAKER) (test ifym=2562) 37.0 C FIO2 (BEAKER) (test nipm=8051) 100.0 % POCT-GLUCOSE [id number] 17:59:00 Test Item Value Reference Range Comments POC-GLUCOSE METER (BEAKER) 198 mg/dL 70-110 TESTED AT [address] (test enlq=7843) [place] [address] POCT-GLUCOSE [id number] 12:02:00 Test Item Value Reference Range Comments POC-GLUCOSE METER (BEAKER) 239 mg/dL 70-110 TESTED AT [address] (test cxbf=5757) [place] [address] BLOOD GAS, [id number] 11:08:00 Test Item Value Reference Range Comments PH ARTERIAL (BEAKER) (test dxyk=792) 7.44 7.35-7.45 PCO2 ARTERIAL (BEAKER) (test myrq=515) 42 mmHg 35-45 PO2 ARTERIAL (BEAKER) (test imqu=348) 111 mmHg 80-90 O2 SATURATION ARTERIAL (BEAKER) (test lahk=747) 98.3 % 96.0-97.0 HCO3 ARTERIAL (BEAKER) (test ennk=779) 28 mmol/L 21-29 BASE EXCESS ARTERIAL (BEAKER) (test tayw=415) 3.6 mmol/L -2.0-3.0 PATIENT TEMPERATURE (BEAKER) (test ssfp=6784) 36.5 C FIO2 (BEAKER) (test ehks=9814) 40.0 % RAD, CHEST, 1 VIEW, NON [id number] 06:50:00Reason for exam:->s/p TEVAR with linesShould this [...] MDReport Verified Date/Time: 07/27/2017 06:50:41 Reading Location: [facility] C013Y CT Body Reading Room POCT-GLUCOSE [id number] 06:24:00 Test Item Value Reference Range Comments POC-GLUCOSE METER (BEAKER) 335 mg/dL 70-110 TESTED AT [facility] [address] [facility] (test mvku=3309) [facility] [address] [id number] 06:13:00 Test Item Value Reference Range Comments PHOSPHORUS (BEAKER) (test kknm=480) 4.7 mg/dL 2.3-4.7 [id number] 06:13:00 Test Item Value Reference Range Comments MAGNESIUM (BEAKER) (test tyqp=628) 2.1 mg/dL 1.6-2.6 BASIC METABOLIC [id number] 06:13:00 Test Item Value Reference Range Comments SODIUM (BEAKER) (test 146 meq/L 136-145 akul=224) POTASSIUM (BEAKER) (test 4.2 meq/L 3.5-5.1 gnph=768) CHLORIDE (BEAKER) (test 109 meq/L 98-107 iifu=546) CO2 (BEAKER) (test 26 meq/L 22-29 znrh=136) BLOOD UREA NITROGEN 47 mg/dL 7-21 (BEAKER) (test wllj=404) CREATININE (BEAKER) (test 1.39 mg/dL 0.57-1.25 yakq=761) GLUCOSE RANDOM (BEAKER) 340 mg/dL 70-105 (test bfyf=702) CALCIUM (BEAKER) (test 9.6 mg/dL 8.4-10.2 ekfe=277) EGFR (BEAKER) (test 38 mL/min/1.73 sq m ESTIMATED GFR IS NOT bwwu=7951) ACCURATE CREATININE CLEARANCE IN PREDICTING GLOMERULAR FILTRATION RATE. ESTIMATED GFR IS NOT APPLICABLE FOR DIALYSIS PATIENTS. VANCOMYCIN LEVEL, [id number] 05:52:00 Test Item Value Reference Range Comments VANCOMYCIN RANDOM (BEAKER) (test ogzm=268) 22.2 ug/mL Reference Range: No [id number] 05:39:00 Test Item Value Reference Range Comments PARTIAL THROMBOPLASTIN TIME (BEAKER) (test < seconds 22.5-36.0 iooe=213) PROTHROMBIN [id number] 05:36:00 Test Item Value Reference Range Comments PROTIME (BEAKER) (test dxoj=291) 13.5 seconds 11.7-14.7 INR (BEAKER) (test zdtp=626) 1.0 <=5.9 RECOMMENDED COUMADIN/WARFARIN INR THERAPY RANGESSTANDARD DOSE: 2.0 - 3.0 Includes: PROPHYLAXIS forvenous thrombosis, systemic embolization; TREATMENT for venous thrombosis and/or pulmonary embolus.HIGH RISK: Target INR is 2.5-3.5 for patients with mechanical heart valves.CBC (HEMOGRAM ONLY)2017-07-27 05:35:00 Test Item Value Reference Range Comments WHITE BLOOD CELL COUNT (BEAKER) (test eewa=758) 5.6 K/ L 3.5-10.5 RED BLOOD CELL COUNT (BEAKER) (test vxiq=182) 3.28 M/ L 3.93-5.22 HEMOGLOBIN (BEAKER) (test xijq=808) 9.5 GM/DL 11.2-15.7 HEMATOCRIT (BEAKER) (test mqpm=570) 31.8 % 34.1-44.9 MEAN CORPUSCULAR VOLUME (BEAKER) (test ptjx=762) 97.0 fL 79.4-94.8 MEAN CORPUSCULAR HEMOGLOBIN (BEAKER) (test 29.0 pg 25.6-32.2 lvec=915) MEAN CORPUSCULAR HEMOGLOBIN CONC (BEAKER) (test 29.9 GM/DL 32.2-35.5 rwgd=052) RED CELL DISTRIBUTION WIDTH (BEAKER) (test 15.8 % 11.7-14.4 hpft=749) PLATELET COUNT (BEAKER) (test gbde=742) 236 K/CU MM 150-450 MEAN PLATELET VOLUME (BEAKER) (test ohuh=972) 12.7 fL 9.4-12.3 NUCLEATED RED BLOOD CELLS (BEAKER) (test 0 /100 WBC 0-0 ohzw=104) BLOOD GAS, [id number] 05:28:00 Test Item Value Reference Range Comments PH ARTERIAL (BEAKER) (test kjce=755) 7.33 7.35-7.45 PCO2 ARTERIAL (BEAKER) (test cnfs=811) 56 mmHg 35-45 PO2 ARTERIAL (BEAKER) (test jxqr=945) 70 mmHg 80-90 O2 SATURATION ARTERIAL (BEAKER) (test qset=520) 92.5 % 96.0-97.0 HCO3 ARTERIAL (BEAKER) (test aleu=079) 29 mmol/L 21-29 BASE EXCESS ARTERIAL (BEAKER) (test mhvg=890) 1.8 mmol/L -2.0-3.0 PATIENT TEMPERATURE (BEAKER) (test arls=1175) 37.0 C FIO2 (BEAKER) (test cfcq=3341) 40.0 % Daily ABG with morning labs while patient is intubated.POCT-GLUCOSE [id number] 00:40:00 Test Item Value Reference Range Comments POC-GLUCOSE METER (BEAKER) 388 mg/dL 70-110 TESTED AT [address] (test spcr=0777) [place] [id number] VANCOMYCIN LEVEL, [id number] 18:23:00 Test Item Value Reference Range Comments VANCOMYCIN TROUGH (BEAKER) (test hzbn=998) 32.4 ug/mL 10.0-20.0 30 minutes prior to 4th dose.POCT-GLUCOSE [id number] 18:11:00 Test Item Value Reference Range Comments POC-GLUCOSE METER (BEAKER) 340 mg/dL 70-110 Verify with Lab draw/TESTED AT (test pbmn=9021) [facility] [address] [facility] [address] URINE [id number] 12:22:00 Test Item Value Reference Range Comments CULTURE (BEAKER) (test lqjm=4560) No growth POCT-GLUCOSE [id number] 12:00:00 Test Item Value Reference Range Comments POC-GLUCOSE METER (BEAKER) 299 mg/dL 70-110 TESTED AT [address] (test thft=1393) [facility] [address] BRONCHIAL CULTURE + GRAM [id number] 10:03:00 Test Item Value Reference Range Comments CULTURE (BEAKER) (test 1+ Normal respiratory ambreen ajxe=7374) present GRAM STAIN RESULT (BEAKER) 1+ WBCs (test ydip=3362) GRAM STAIN RESULT (BEAKER) No organisms seen (test uzyk=16152) SPUTUM CULTURE + GRAM [id number] 10:02:00 Test Item Value Reference Range Comments CULTURE (BEAKER) (test 1+ Normal respiratory ambreen yjpe=2199) present GRAM STAIN RESULT (BEAKER) 1+ WBCs (test txgy=4357) GRAM STAIN RESULT (BEAKER) 0-5 epithelial cells (test pllz=63940) GRAM STAIN RESULT (BEAKER) No organisms seen (test ozab=32661) POCT-GLUCOSE [id number] 06:12:00 Test Item Value Reference Range Comments POC-GLUCOSE METER (BEAKER) 279 mg/dL 70-110 TESTED AT [address] (test ckqn=8501) [place] [id number] BLOOD GAS, [id number] 05:47:00 Test Item Value Reference Range Comments PH ARTERIAL (BEAKER) (test wxsl=214) 7.45 7.35-7.45 PCO2 ARTERIAL (BEAKER) (test skcz=666) 42 mmHg 35-45 PO2 ARTERIAL (BEAKER) (test vcda=135) 75 mmHg 80-90 O2 SATURATION ARTERIAL (BEAKER) (test lfzh=915) 95.7 % 96.0-97.0 HCO3 ARTERIAL (BEAKER) (test dybw=812) 29 mmol/L 21-29 BASE EXCESS ARTERIAL (BEAKER) (test mffa=455) 4.3 mmol/L -2.0-3.0 PATIENT TEMPERATURE (BEAKER) (test cgko=8606) 37.0 C FIO2 (BEAKER) (test xcie=0163) 100.0 % Daily ABG with morning labs while patient is intubated.[id number] 05: 38:00 Test Item Value Reference Range Comments PHOSPHORUS (BEAKER) (test fkry=478) 3.1 mg/dL 2.3-4.7 [id number] 05:38:00 Test Item Value Reference Range Comments MAGNESIUM (BEAKER) (test visf=478) 2.0 mg/dL 1.6-2.6 BASIC METABOLIC [id number] 05:38:00 Test Item Value Reference Range Comments SODIUM (BEAKER) (test 144 meq/L 136-145 vsae=539) POTASSIUM (BEAKER) (test 3.9 meq/L 3.5-5.1 dvqr=616) CHLORIDE (BEAKER) (test 109 meq/L 98-107 axmc=216) CO2 (BEAKER) (test 25 meq/L 22-29 gqlz=535) BLOOD UREA NITROGEN 47 mg/dL 7-21 (BEAKER) (test vgld=717) CREATININE (BEAKER) (test 1.46 mg/dL 0.57-1.25 yzue=931) GLUCOSE RANDOM (BEAKER) 332 mg/dL 70-105 (test nvce=518) CALCIUM (BEAKER) (test 8.9 mg/dL 8.4-10.2 kluv=940) EGFR (BEAKER) (test 36 mL/min/1.73 sq m ESTIMATED GFR IS NOT pttf=5634) ACCURATE CREATININE CLEARANCE IN PREDICTING GLOMERULAR FILTRATION RATE. ESTIMATED GFR IS NOT APPLICABLE FOR DIALYSIS PATIENTS. POCT-GLUCOSE [id number] 05:24:00 Test Item Value Reference Range Comments POC-GLUCOSE METER (BEAKER) 283 mg/dL 70-110 TESTED AT [facility] [address] [facility] (test vsub=7911) [facility] [address] PROTHROMBIN [id number] 05:05:00 Test Item Value Reference Range Comments PROTIME (BEAKER) (test yheq=540) 15.2 seconds 11.7-14.7 INR (BEAKER) (test wqwq=955) 1.2 <=5.9 RECOMMENDED COUMADIN/WARFARIN INR THERAPY RANGESSTANDARD DOSE: 2.0 - 3.0 Includes: PROPHYLAXIS forvenous thrombosis, systemic embolization; TREATMENT for venous thrombosis and/or pulmonary embolus.HIGH RISK: Target INR is 2.5-3.5 for patients with mechanical heart valves.[id number] 05:05:00 Test Item Value Reference Range Comments PARTIAL THROMBOPLASTIN TIME (BEAKER) (test 28.2 seconds 22.5-36.0 azwh=317) CBC (HEMOGRAM ONLY)2017-07-26 04:53:00 Test Item Value Reference Range Comments WHITE BLOOD CELL COUNT (BEAKER) (test oxpo=316) 5.0 K/ L 3.5-10.5 RED BLOOD CELL COUNT (BEAKER) (test ylgg=459) 3.10 M/ L 3.93-5.22 HEMOGLOBIN (BEAKER) (test cown=888) 8.9 GM/DL 11.2-15.7 HEMATOCRIT (BEAKER) (test fzix=836) 29.9 % 34.1-44.9 MEAN CORPUSCULAR VOLUME (BEAKER) (test filf=976) 96.5 fL 79.4-94.8 MEAN CORPUSCULAR HEMOGLOBIN (BEAKER) (test 28.7 pg 25.6-32.2 sxyf=976) MEAN CORPUSCULAR HEMOGLOBIN CONC (BEAKER) (test 29.8 GM/DL 32.2-35.5 ovlk=133) RED CELL DISTRIBUTION WIDTH (BEAKER) (test 16.2 % 11.7-14.4 vyzi=838) PLATELET COUNT (BEAKER) (test gjja=023) 216 K/CU MM 150-450 MEAN PLATELET VOLUME (BEAKER) (test ygjk=135) 12.6 fL 9.4-12.3 NUCLEATED RED BLOOD CELLS (BEAKER) (test 0 /100 WBC 0-0 aqxa=652) RAD, CHEST, 1 VIEW, NON [id number] 04:44:00Reason for exam:->s/p TEVAR with linesShould this [...] MDReport Verified Date/Time: 07/26/2017 04:44:03 Reading Location: [facility] B1 C013Y CT Body Reading Room POCT-GLUCOSE [id number] 04:06:00 Test Item Value Reference Range Comments POC-GLUCOSE METER (BEAKER) 328 mg/dL 70-110 Notified KIMBERLY SAINZ/TESTED AT [facility] (test hzkk=2890) [address] [place] [address] POCT-GLUCOSE [id number] 03:21:00 Test Item Value Reference Range Comments POC-GLUCOSE METER (BEAKER) 298 mg/dL 70-110 TESTED AT [address] (test htnq=5991) [facility] [address] POCT-GLUCOSE [id number] 03:12:00 Test Item Value Reference Range Comments POC-GLUCOSE METER (BEAKER) 311 mg/dL 70-110 TESTED AT [address] (test szje=8614) [facility] [address] [id number] 00:53:00 Test Item Value Reference Range Comments POTASSIUM (BEAKER) (test kijw=903) 3.7 meq/L 3.5-5.1 [id number] 00:53:00 Test Item Value Reference Range Comments GLUCOSE RANDOM (BEAKER) (test ramm=417) 336 mg/dL 70-105 POCT-GLUCOSE [id number] 00:06:00 Test Item Value Reference Range Comments POC-GLUCOSE METER (BEAKER) 348 mg/dL 70-110 Notified KIMBERLY SAINZ/TESTED AT [facility] (test pwmo=0890) [address] [place] [address] POCT-GLUCOSE [id number] 18:51:00 Test Item Value Reference Range Comments POC-GLUCOSE METER (BEAKER) 313 mg/dL 70-110 Notified KIMBERLY SAINZ/[facility]ED [facility] [facility] (test jrig=4995) [address] [place] [id number] [id number] 16:55:00 Test Item Value Reference Range Comments MAGNESIUM (BEAKER) (test mesc=034) 2.2 mg/dL 1.6-2.6 BASIC METABOLIC [id number] 16:55:00 Test Item Value Reference Range Comments SODIUM (BEAKER) (test 145 meq/L 136-145 ggdr=901) POTASSIUM (BEAKER) (test 3.8 meq/L 3.5-5.1 xxah=702) CHLORIDE (BEAKER) (test 110 meq/L 98-107 ffwv=625) CO2 (BEAKER) (test 27 meq/L 22-29 isug=888) BLOOD UREA NITROGEN 42 mg/dL 7-21 (BEAKER) (test jsgw=444) CREATININE (BEAKER) (test 1.38 mg/dL 0.57-1.25 jnlo=352) GLUCOSE RANDOM (BEAKER) 270 mg/dL 70-105 (test bwlm=134) CALCIUM (BEAKER) (test 8.7 mg/dL 8.4-10.2 xwdg=770) EGFR (BEAKER) (test 39 mL/min/1.73 sq m ESTIMATED GFR IS NOT komq=8326) ACCURATE CREATININE CLEARANCE IN PREDICTING GLOMERULAR FILTRATION RATE. ESTIMATED GFR IS NOT APPLICABLE FOR DIALYSIS PATIENTS. POCT-GLUCOSE [id number] 13:11:00 Test Item Value Reference Range Comments POC-GLUCOSE METER (BEAKER) 284 mg/dL 70-110 TESTED AT [address] (test wnbt=7506) [place] [address] POCT-GLUCOSE [id number] 06:54:00 Test Item Value Reference Range Comments POC-GLUCOSE METER (BEAKER) 275 mg/dL 70-110 TESTED AT [address] (test ynya=7545) [place] [id number] BLOOD GAS, [id number] 05:07:00 Test Item Value Reference Range Comments PH ARTERIAL (BEAKER) (test fbac=525) 7.47 7.35-7.45 PCO2 ARTERIAL (BEAKER) (test bvac=282) 42 mmHg 35-45 PO2 ARTERIAL (BEAKER) (test jums=404) 87 mmHg 80-90 O2 SATURATION ARTERIAL (BEAKER) (test ljnr=338) 97.1 % 96.0-97.0 HCO3 ARTERIAL (BEAKER) (test kpud=604) 29 mmol/L 21-29 BASE EXCESS ARTERIAL (BEAKER) (test npkj=630) 5.2 mmol/L -2.0-3.0 PATIENT TEMPERATURE (BEAKER) (test wkyp=5843) 37.0 C FIO2 (BEAKER) (test brsm=9648) 40.0 % Daily ABG with morning labs while patient is intubated.RAD, CHEST, 1 VIEW, NON [id number] 04:36:00Reason for exam:->s/p TEVAR with linesShould this [...] MDReport Verified Date/Time: 07/25/2017 04:36:28 Reading Location: [place] [id number] CT Body Reading Room [id number] 04:09:00 Test Item Value Reference Range Comments PHOSPHORUS (BEAKER) (test lyyv=544) 2.8 mg/dL 2.3-4.7 [id number] 04:09:00 Test Item Value Reference Range Comments MAGNESIUM (BEAKER) (test vbrc=194) 2.1 mg/dL 1.6-2.6 BASIC METABOLIC [id number] 04:09:00 Test Item Value Reference Range Comments SODIUM (BEAKER) (test 148 meq/L 136-145 ewhp=258) POTASSIUM (BEAKER) (test 3.7 meq/L 3.5-5.1 vwvn=336) CHLORIDE (BEAKER) (test 110 meq/L 98-107 hfrg=754) CO2 (BEAKER) (test 30 meq/L 22-29 gahr=139) BLOOD UREA NITROGEN 44 mg/dL 7-21 (BEAKER) (test taal=719) CREATININE (BEAKER) (test 1.56 mg/dL 0.57-1.25 scow=916) GLUCOSE RANDOM (BEAKER) 223 mg/dL 70-105 (test kpav=156) CALCIUM (BEAKER) (test 8.6 mg/dL 8.4-10.2 wyyy=598) EGFR (BEAKER) (test 34 mL/min/1.73 sq m ESTIMATED GFR IS NOT wqrj=5543) ACCURATE CREATININE CLEARANCE IN PREDICTING GLOMERULAR FILTRATION RATE. ESTIMATED GFR IS NOT APPLICABLE FOR DIALYSIS PATIENTS. [id number] 03:52:00 Test Item Value Reference Range Comments PARTIAL THROMBOPLASTIN TIME (BEAKER) (test 30.5 seconds 22.5-36.0 elgj=316) PROTHROMBIN [id number] 03:51:00 Test Item Value Reference Range Comments PROTIME (BEAKER) (test uyng=812) 14.8 seconds 11.7-14.7 INR (BEAKER) (test khfp=233) 1.2 <=5.9 RECOMMENDED COUMADIN/WARFARIN INR THERAPY RANGESSTANDARD DOSE: 2.0 - 3.0 Includes: PROPHYLAXIS forvenous thrombosis, systemic embolization; TREATMENT for venous thrombosis and/or pulmonary embolus.HIGH RISK: Target INR is 2.5-3.5 for patients with mechanical heart valves.CBC (HEMOGRAM ONLY)2017-07-25 03:34:00 Test Item Value Reference Range Comments WHITE BLOOD CELL COUNT (BEAKER) (test esqm=015) 6.9 K/ L 3.5-10.5 RED BLOOD CELL COUNT (BEAKER) (test yrff=834) 2.96 M/ L 3.93-5.22 HEMOGLOBIN (BEAKER) (test icdj=381) 8.7 GM/DL 11.2-15.7 HEMATOCRIT (BEAKER) (test jtlf=722) 28.5 % 34.1-44.9 MEAN CORPUSCULAR VOLUME (BEAKER) (test nyhq=842) 96.3 fL 79.4-94.8 MEAN CORPUSCULAR HEMOGLOBIN (BEAKER) (test 29.4 pg 25.6-32.2 vtap=757) MEAN CORPUSCULAR HEMOGLOBIN CONC (BEAKER) (test 30.5 GM/DL 32.2-35.5 xzgj=407) RED CELL DISTRIBUTION WIDTH (BEAKER) (test 16.2 % 11.7-14.4 gssw=270) PLATELET COUNT (BEAKER) (test vyvw=406) 214 K/CU MM 150-450 MEAN PLATELET VOLUME (BEAKER) (test kkju=746) 12.5 fL 9.4-12.3 NUCLEATED RED BLOOD CELLS (BEAKER) (test 0 /100 WBC 0-0 tkwc=279) POCT-GLUCOSE [id number] 00:12:00 Test Item Value Reference Range Comments POC-GLUCOSE METER (BEAKER) 214 mg/dL 70-110 TESTED AT [address] (test owxi=0116) [facility] [address] POCT-GLUCOSE [id number] 23:28:00 Test Item Value Reference Range Comments POC-GLUCOSE METER (BEAKER) 192 mg/dL 70-110 TESTED AT [address] (test posa=1404) [facility] [address] POCT-GLUCOSE [id number] 14:19:00 Test Item Value Reference Range Comments POC-GLUCOSE METER (BEAKER) 236 mg/dL 70-110 TESTED AT [address] (test kyrq=4915) [facility] [address] POCT-GLUCOSE [id number] 11:17:00 Test Item Value Reference Range Comments POC-GLUCOSE METER (BEAKER) 110 mg/dL 70-110 TESTED AT [address] (test muxh=3929) [facility] [address] POCT-GLUCOSE [id number] 05:42:00 Test Item Value Reference Range Comments POC-GLUCOSE METER (BEAKER) 183 mg/dL 70-110 TESTED AT [address] (test puju=3559) [facility] [address] RAD, CHEST, 1 VIEW, NON [id number] 05:09:00Reason for exam:->s/p TEVAR with linesShould this [...] MDReport Verified Date/Time: 07/24/2017 05:09:03 Reading Location: [address] Body Reading Room [id number] 03:52:00 Test Item Value Reference Range Comments PARTIAL THROMBOPLASTIN TIME (BEAKER) (test 25.8 seconds 22.5-36.0 plmx=964) PROTHROMBIN [id number] 03:51:00 Test Item Value Reference Range Comments PROTIME (BEAKER) (test ajkb=667) 13.6 seconds 11.7-14.7 INR (BEAKER) (test qvca=543) 1.1 <=5.9 RECOMMENDED COUMADIN/WARFARIN INR THERAPY RANGESSTANDARD DOSE: 2.0 - 3.0 Includes: PROPHYLAXIS forvenous thrombosis, systemic embolization; TREATMENT for venous thrombosis and/or pulmonary embolus.HIGH RISK: Target INR is 2.5-3.5 for patients with mechanical heart valves.[id number] 03:42:00 Test Item Value Reference Range Comments PHOSPHORUS (BEAKER) (test rwcr=768) 3.1 mg/dL 2.3-4.7 [id number] 03:42:00 Test Item Value Reference Range Comments MAGNESIUM (BEAKER) (test fqwo=679) 1.8 mg/dL 1.6-2.6 BASIC METABOLIC [id number] 03:42:00 Test Item Value Reference Range Comments SODIUM (BEAKER) (test 150 meq/L 136-145 cepb=859) POTASSIUM (BEAKER) (test 3.4 meq/L 3.5-5.1 anjj=667) CHLORIDE (BEAKER) (test 112 meq/L 98-107 zwzy=800) CO2 (BEAKER) (test 30 meq/L 22-29 rmau=042) BLOOD UREA NITROGEN 41 mg/dL 7-21 (BEAKER) (test hzhk=642) CREATININE (BEAKER) (test 1.42 mg/dL 0.57-1.25 rvdf=274) GLUCOSE RANDOM (BEAKER) 222 mg/dL 70-105 (test ewzf=180) CALCIUM (BEAKER) (test 8.7 mg/dL 8.4-10.2 keps=725) EGFR (BEAKER) (test 37 mL/min/1.73 sq m ESTIMATED GFR IS NOT oirt=5627) ACCURATE CREATININE CLEARANCE IN PREDICTING GLOMERULAR FILTRATION RATE. ESTIMATED GFR IS NOT APPLICABLE FOR DIALYSIS PATIENTS. CBC (HEMOGRAM ONLY)2017-07-24 03:24:00 Test Item Value Reference Range Comments WHITE BLOOD CELL COUNT (BEAKER) (test poha=602) 7.8 K/ L 3.5-10.5 RED BLOOD CELL COUNT (BEAKER) (test msdw=304) 3.09 M/ L 3.93-5.22 HEMOGLOBIN (BEAKER) (test zkzl=846) 9.0 GM/DL 11.2-15.7 HEMATOCRIT (BEAKER) (test dege=045) 29.9 % 34.1-44.9 MEAN CORPUSCULAR VOLUME (BEAKER) (test hzoy=597) 96.8 fL 79.4-94.8 MEAN CORPUSCULAR HEMOGLOBIN (BEAKER) (test 29.1 pg 25.6-32.2 irfg=795) MEAN CORPUSCULAR HEMOGLOBIN CONC (BEAKER) (test 30.1 GM/DL 32.2-35.5 jdma=028) RED CELL DISTRIBUTION WIDTH (BEAKER) (test 16.0 % 11.7-14.4 vkjg=643) PLATELET COUNT (BEAKER) (test hhaq=941) 230 K/CU MM 150-450 MEAN PLATELET VOLUME (BEAKER) (test wwie=307) 12.6 fL 9.4-12.3 NUCLEATED RED BLOOD CELLS (BEAKER) (test 0 /100 WBC 0-0 nmtt=095) BLOOD GAS, [id number] 03:22:00 Test Item Value Reference Range Comments PH ARTERIAL (BEAKER) (test nxzn=610) 7.48 7.35-7.45 PCO2 ARTERIAL (BEAKER) (test yxpm=437) 45 mmHg 35-45 PO2 ARTERIAL (BEAKER) (test mlqh=315) 74 mmHg 80-90 O2 SATURATION ARTERIAL (BEAKER) (test tfgo=305) 95.7 % 96.0-97.0 HCO3 ARTERIAL (BEAKER) (test mara=860) 33 mmol/L 21-29 BASE EXCESS ARTERIAL (BEAKER) (test rizm=600) 8.3 mmol/L -2.0-3.0 PATIENT TEMPERATURE (BEAKER) (test macm=6221) 37.0 C FIO2 (BEAKER) (test nsbm=9976) 50.0 % Daily ABG with morning labs while patient is intubated.POCT-GLUCOSE [id number] 00:24:00 Test Item Value Reference Range Comments POC-GLUCOSE METER (BEAKER) 155 mg/dL 70-110 TESTED AT [facility] [address] [facility] (test nqko=5236) [facility] [address] POCT-GLUCOSE [id number] 19:04:00 Test Item Value Reference Range Comments POC-GLUCOSE METER (BEAKER) 202 mg/dL 70-110 TESTED AT [facility] [address] [facility] (test pkaq=7846) [facility] [address] RAD, CHEST, 1 VIEW, NON [id number] 17:40:00Reason for exam:->check picc placement Should this [...] Simpson Verified Date/Time: 07/23/2017 17:40:46 [facility] [id number] 14:48:00 Test Item Value Reference Range Comments POTASSIUM (BEAKER) (test 3.9 meq/L 3.5-5.1 Specimen slightly hemolyzed afdc=909) PRN - repeat potassium levels every 1 hour until glucose level is less than 450 mg/dLRAD, CHEST, 1 VIEW, NON [id number] 05:17:00Reason for exam:->s/p TEVAR with linesShould this [...] Scruggs Verified Date/Time: 07/23/2017 05:17:05 Reading Location: [address] Transitional Reading Room BLOOD GAS, [id number] 03:59:00 Test Item Value Reference Range Comments PH ARTERIAL (BEAKER) (test gzoa=120) 7.40 7.35-7.45 PCO2 ARTERIAL (BEAKER) (test pxwt=313) 46 mmHg 35-45 PO2 ARTERIAL (BEAKER) (test ynij=082) 83 mmHg 80-90 O2 SATURATION ARTERIAL (BEAKER) (test mcvf=625) 96.0 % 96.0-97.0 HCO3 ARTERIAL (BEAKER) (test rcel=912) 28 mmol/L 21-29 BASE EXCESS ARTERIAL (BEAKER) (test gpcw=073) 2.5 mmol/L -2.0-3.0 PATIENT TEMPERATURE (BEAKER) (test oxri=1438) 37.0 C FIO2 (BEAKER) (test umxv=2280) 100.0 % Daily ABG with morning labs while patient is intubated.[id number] 03: 54:00 Test Item Value Reference Range Comments PHOSPHORUS (BEAKER) (test twvc=214) 3.9 mg/dL 2.3-4.7 [id number] 03:54:00 Test Item Value Reference Range Comments MAGNESIUM (BEAKER) (test fbff=317) 2.3 mg/dL 1.6-2.6 BASIC METABOLIC [id number] 03:54:00 Test Item Value Reference Range Comments SODIUM (BEAKER) (test 152 meq/L 136-145 fizc=361) POTASSIUM (BEAKER) (test 3.9 meq/L 3.5-5.1 vlxu=368) CHLORIDE (BEAKER) (test 114 meq/L 98-107 kurm=254) CO2 (BEAKER) (test 26 meq/L 22-29 egyu=818) BLOOD UREA NITROGEN 42 mg/dL 7-21 (BEAKER) (test gqdd=479) CREATININE (BEAKER) (test 1.47 mg/dL 0.57-1.25 ebip=134) GLUCOSE RANDOM (BEAKER) 182 mg/dL 70-105 (test jjyp=373) CALCIUM (BEAKER) (test 8.9 mg/dL 8.4-10.2 bkut=010) EGFR (BEAKER) (test 36 mL/min/1.73 sq m ESTIMATED GFR IS NOT jria=8209) ACCURATE CREATININE CLEARANCE IN PREDICTING GLOMERULAR FILTRATION RATE. ESTIMATED GFR IS NOT APPLICABLE FOR DIALYSIS PATIENTS. PROTHROMBIN TIME/[id number] 03:45:00 Test Item Value Reference Range Comments PROTIME (BEAKER) (test ldcy=742) 14.4 seconds 11.7-14.7 INR (BEAKER) (test ilwd=100) 1.1 <=5.9 RECOMMENDED COUMADIN/WARFARIN INR THERAPY RANGESSTANDARD DOSE: 2.0 - 3.0 Includes: PROPHYLAXIS forvenous thrombosis, systemic embolization; TREATMENT for venous thrombosis and/or pulmonary embolus.HIGH RISK: Target INR is 2.5-3.5 for patients with mechanical heart valves.[id number] 03:45:00 Test Item Value Reference Range Comments PARTIAL THROMBOPLASTIN TIME (BEAKER) (test 25.3 seconds 22.5-36.0 yfea=896) CBC (HEMOGRAM ONLY)2017-07-23 03:38:00 Test Item Value Reference Range Comments WHITE BLOOD CELL COUNT (BEAKER) (test fzeg=057) 8.2 K/ L 3.5-10.5 RED BLOOD CELL COUNT (BEAKER) (test yxlw=542) 3.13 M/ L 3.93-5.22 HEMOGLOBIN (BEAKER) (test lqnp=466) 9.1 GM/DL 11.2-15.7 HEMATOCRIT (BEAKER) (test aimy=052) 30.8 % 34.1-44.9 MEAN CORPUSCULAR VOLUME (BEAKER) (test jugp=767) 98.4 fL 79.4-94.8 MEAN CORPUSCULAR HEMOGLOBIN (BEAKER) (test 29.1 pg 25.6-32.2 xwhq=189) MEAN CORPUSCULAR HEMOGLOBIN CONC (BEAKER) (test 29.5 GM/DL 32.2-35.5 jmor=311) RED CELL DISTRIBUTION WIDTH (BEAKER) (test 16.2 % 11.7-14.4 gkoc=791) PLATELET COUNT (BEAKER) (test ljva=598) 222 K/CU MM 150-450 MEAN PLATELET VOLUME (BEAKER) (test plyf=560) 12.8 fL 9.4-12.3 NUCLEATED RED BLOOD CELLS (BEAKER) (test 0 /100 WBC 0-0 sybq=287) RAD, ABDOMEN/KUB, 1 VIEW [id number] 22:33:00Reason for exam:->New NG tube Should this [...] MDReport Verified Date/Time: 07/22/2017 22:33:01 Reading Location: [address] Transitional Reading Room POCT-GLUCOSE [id number] 12:25:00 Test Item Value Reference Range Comments POC-GLUCOSE METER (BEAKER) 155 mg/dL 70-110 TESTED AT [address] (test bmio=4208) [facility] [address] [id number] 06:41:00 Test Item Value Reference Range Comments PHOSPHORUS (BEAKER) (test bjbu=814) 3.8 mg/dL 2.3-4.7 [id number] 06:41:00 Test Item Value Reference Range Comments MAGNESIUM (BEAKER) (test dhiv=388) 2.2 mg/dL 1.6-2.6 BASIC METABOLIC [id number] 06:41:00 Test Item Value Reference Range Comments SODIUM (BEAKER) (test 154 meq/L 136-145 rfdy=087) POTASSIUM (BEAKER) (test 3.6 meq/L 3.5-5.1 gjly=267) CHLORIDE (BEAKER) (test 115 meq/L 98-107 qjef=887) CO2 (BEAKER) (test 28 meq/L 22-29 xqof=888) BLOOD UREA NITROGEN 41 mg/dL 7-21 (BEAKER) (test ttiz=177) CREATININE (BEAKER) (test 1.41 mg/dL 0.57-1.25 ybed=375) GLUCOSE RANDOM (BEAKER) 146 mg/dL 70-105 (test iemp=624) CALCIUM (BEAKER) (test 8.8 mg/dL 8.4-10.2 dcxl=415) EGFR (BEAKER) (test 38 mL/min/1.73 sq m ESTIMATED GFR IS NOT xkek=7141) ACCURATE CREATININE CLEARANCE IN PREDICTING GLOMERULAR FILTRATION RATE. ESTIMATED GFR IS NOT APPLICABLE FOR DIALYSIS PATIENTS. [id number] 06:32:00 Test Item Value Reference Range Comments PARTIAL THROMBOPLASTIN TIME (BEAKER) (test 28.1 seconds 22.5-36.0 jpdc=434) PROTHROMBIN [id number] 06:29:00 Test Item Value Reference Range Comments PROTIME (BEAKER) (test qdjv=143) 13.8 seconds 11.7-14.7 INR (BEAKER) (test uzsj=185) 1.1 <=5.9 RECOMMENDED COUMADIN/WARFARIN INR THERAPY RANGESSTANDARD DOSE: 2.0 - 3.0 Includes: PROPHYLAXIS forvenous thrombosis, systemic embolization; TREATMENT for venous thrombosis and/or pulmonary embolus.HIGH RISK: Target INR is 2.5-3.5 for patients with mechanical heart valves.CBC (HEMOGRAM ONLY)2017-07-22 06:09:00 Test Item Value Reference Range Comments WHITE BLOOD CELL COUNT (BEAKER) (test uslj=947) 7.9 K/ L 3.5-10.5 RED BLOOD CELL COUNT (BEAKER) (test nfbv=478) 3.18 M/ L 3.93-5.22 HEMOGLOBIN (BEAKER) (test oawn=108) 9.2 GM/DL 11.2-15.7 HEMATOCRIT (BEAKER) (test ymis=859) 31.2 % 34.1-44.9 MEAN CORPUSCULAR VOLUME (BEAKER) (test ojbi=731) 98.1 fL 79.4-94.8 MEAN CORPUSCULAR HEMOGLOBIN (BEAKER) (test 28.9 pg 25.6-32.2 laly=459) MEAN CORPUSCULAR HEMOGLOBIN CONC (BEAKER) (test 29.5 GM/DL 32.2-35.5 gjgt=765) RED CELL DISTRIBUTION WIDTH (BEAKER) (test 16.2 % 11.7-14.4 gysu=213) PLATELET COUNT (BEAKER) (test ascf=448) 212 K/CU MM 150-450 MEAN PLATELET VOLUME (BEAKER) (test ebjt=389) 12.7 fL 9.4-12.3 NUCLEATED RED BLOOD CELLS (BEAKER) (test 0 /100 WBC 0-0 femg=513) BLOOD GAS, [id number] 06:08:00 Test Item Value Reference Range Comments PH ARTERIAL (BEAKER) (test oxhw=051) 7.42 7.35-7.45 PCO2 ARTERIAL (BEAKER) (test lavf=703) 47 mmHg 35-45 PO2 ARTERIAL (BEAKER) (test mqlm=377) 138 mmHg 80-90 O2 SATURATION ARTERIAL (BEAKER) (test sclj=423) 98.8 % 96.0-97.0 HCO3 ARTERIAL (BEAKER) (test plri=937) 30 mmol/L 21-29 BASE EXCESS ARTERIAL (BEAKER) (test iepq=735) 4.6 mmol/L -2.0-3.0 PATIENT TEMPERATURE (BEAKER) (test aymw=9539) 36.8 C FIO2 (BEAKER) (test xnsg=8948) 100.0 % Daily ABG with morning labs while patient is intubated.RAD, ABDOMEN/KUB, 1 VIEW [id number] 04:48:00Reason for exam:->NG tube placment Should this [...] Royal Verified Date/Time: 07/22/2017 04:48:05 Reading Location: [facility] [id number] Ortho Consult Reading Room RAD, CHEST, 1 VIEW, NON [id number] 04:47: 00Reason for exam:->s/p TEVAR with linesShould this be performed at the bedside?->YesFINAL REPORT CLINICAL INDICATION: Postop Comparison: 07/21/2017 The cardiomediastinal contours are stable. Central pulmonary vascular congestion and bilateral parenchymal opacities are unchanged. There is no pneumothorax. Support lines are stable. Signed: Sarmad StevensonVerified Date/Time: 07/22/2017 04:47:13 Reading Location: [address] Reading Room POCT-GLUCOSE [id number] 01:30:00 Test Item Value Reference Range Comments POC-GLUCOSE METER (BEAKER) 203 mg/dL 70-110 TESTED AT [address] (test awgm=0277) [facility] [address] RAD, CHEST, 1 VIEW, NON [id number] 21:13:00Reason for exam:-> intubationShould this be performed [...] Sarmad Stevenson VerifiedDate/Time: 07/21/2017 21:13:02 Reading Location: [address] Reading Room RAD, CHEST, 1 VIEW, NON [id number] 20:08:00Reason for exam:->endotracheal tube malpositionShould this be [...] MDReport Verified Date/Time: 07/21/2017 20:08:49 Reading Location: [address] Reading Room [id number] 05:34:00 Test Item Value Reference Range Comments PHOSPHORUS (BEAKER) (test pdex=618) 3.3 mg/dL 2.3-4.7 [id number] 05:34:00 Test Item Value Reference Range Comments MAGNESIUM (BEAKER) (test ltns=833) 2.4 mg/dL 1.6-2.6 BASIC METABOLIC [id number] 05:34:00 Test Item Value Reference Range Comments SODIUM (BEAKER) (test 150 meq/L 136-145 sgtn=884) POTASSIUM (BEAKER) (test 3.6 meq/L 3.5-5.1 lpdv=464) CHLORIDE (BEAKER) (test 113 meq/L 98-107 ucky=711) CO2 (BEAKER) (test 28 meq/L 22-29 tkhj=772) BLOOD UREA NITROGEN 37 mg/dL 7-21 (BEAKER) (test jpco=927) CREATININE (BEAKER) (test 1.42 mg/dL 0.57-1.25 btde=513) GLUCOSE RANDOM (BEAKER) 204 mg/dL 70-105 (test tsrg=452) CALCIUM (BEAKER) (test 8.9 mg/dL 8.4-10.2 vcus=071) EGFR (BEAKER) (test 37 mL/min/1.73 sq m ESTIMATED GFR IS NOT lsio=5141) ACCURATE CREATININE CLEARANCE IN PREDICTING GLOMERULAR FILTRATION RATE. ESTIMATED GFR IS NOT APPLICABLE FOR DIALYSIS PATIENTS. [id number] 05:08:00 Test Item Value Reference Range Comments PARTIAL THROMBOPLASTIN TIME (BEAKER) (test 25.0 seconds 22.5-36.0 mmzz=195) PROTHROMBIN [id number] 05:07:00 Test Item Value Reference Range Comments PROTIME (BEAKER) (test sygt=418) 14.3 seconds 11.7-14.7 INR (BEAKER) (test wuqg=366) 1.1 <=5.9 RECOMMENDED COUMADIN/WARFARIN INR THERAPY RANGESSTANDARD DOSE: 2.0 - 3.0 Includes: PROPHYLAXIS forvenous thrombosis, systemic embolization; TREATMENT for venous thrombosis and/or pulmonary embolus.HIGH RISK: Target INR is 2.5-3.5 for patients with mechanical heart valves.BLOOD GAS, [id number] 05:06:00 Test Item Value Reference Range Comments PH ARTERIAL (BEAKER) (test sorz=321) 7.46 7.35-7.45 PCO2 ARTERIAL (BEAKER) (test ejdj=587) 45 mmHg 35-45 PO2 ARTERIAL (BEAKER) (test jxml=754) 67 mmHg 80-90 O2 SATURATION ARTERIAL (BEAKER) (test fret=141) 93.7 % 96.0-97.0 HCO3 ARTERIAL (BEAKER) (test nbog=042) 31 mmol/L 21-29 BASE EXCESS ARTERIAL (BEAKER) (test hakj=282) 6.5 mmol/L -2.0-3.0 PATIENT TEMPERATURE (BEAKER) (test wjde=6194) 37.3 C FIO2 (BEAKER) (test yrin=3478) 50.0 % Daily ABG with morning labs while patient is intubated.CBC (HEMOGRAM ONLY)07-21 04:49:00 Test Item Value Reference Range Comments WHITE BLOOD CELL COUNT (BEAKER) (test lvrg=809) 8.0 K/ L 3.5-10.5 RED BLOOD CELL COUNT (BEAKER) (test hphf=109) 3.38 M/ L 3.93-5.22 HEMOGLOBIN (BEAKER) (test tqru=733) 9.8 GM/DL 11.2-15.7 HEMATOCRIT (BEAKER) (test hzfi=708) 32.8 % 34.1-44.9 MEAN CORPUSCULAR VOLUME (BEAKER) (test cpav=082) 97.0 fL 79.4-94.8 MEAN CORPUSCULAR HEMOGLOBIN (BEAKER) (test 29.0 pg 25.6-32.2 npjw=091) MEAN CORPUSCULAR HEMOGLOBIN CONC (BEAKER) (test 29.9 GM/DL 32.2-35.5 cfeu=611) RED CELL DISTRIBUTION WIDTH (BEAKER) (test 16.0 % 11.7-14.4 emvv=714) PLATELET COUNT (BEAKER) (test txsu=819) 185 K/CU MM 150-450 MEAN PLATELET VOLUME (BEAKER) (test ffug=928) 13.0 fL 9.4-12.3 NUCLEATED RED BLOOD CELLS (BEAKER) (test 0 /100 WBC 0-0 wjyi=971) RAD, CHEST, 1 VIEW, NON [id number] 04:30:00Reason for exam:->s/p TEVAR with linesShould this be performed at the bedside?->YesFINAL REPORT CLINICAL INDICATION: Postop Comparison: 07/20/2017 The cardiomediastinal contours are stable. Bilateral parenchymal opacities are similar within variation of acquisition technique. There is no pneumothorax. Support lines are stable. Signed: Sarmad Stevenson Verified Date/Time: 07/21/2017 04:30:10 Reading Location: [address] Reading Room POCT- GLUCOSE [id number] 18:53:00 Test Item Value Reference Range Comments POC-GLUCOSE METER (BEAKER) 159 mg/dL 70-110 TESTED AT [address] (test guhv=7976) [facility] [address] POCT-GLUCOSE [id number] 14:00:00 Test Item Value Reference Range Comments POC-GLUCOSE METER (BEAKER) 165 mg/dL 70-110 TESTED AT [facility] [address] [facility] (test dkne=1847) [facility] [address] TSH/FREE T4 IF [id number] 06:13:00 Test Item Value Reference Range Comments THYROID STIMULATING HORMONE (BEAKER) (test 1.13 uIU/mL 0.35-4.94 orut=386) BLOOD GAS, [id number] 05:09:00 Test Item Value Reference Range Comments PH ARTERIAL (BEAKER) (test lfsa=971) 7.48 7.35-7.45 PCO2 ARTERIAL (BEAKER) (test afan=644) 44 mmHg 35-45 PO2 ARTERIAL (BEAKER) (test mpbs=649) 72 mmHg 80-90 O2 SATURATION ARTERIAL (BEAKER) (test yfet=819) 95.1 % 96.0-97.0 HCO3 ARTERIAL (BEAKER) (test cmcu=435) 32 mmol/L 21-29 BASE EXCESS ARTERIAL (BEAKER) (test kjqd=362) 7.7 mmol/L -2.0-3.0 PATIENT TEMPERATURE (BEAKER) (test vwpz=5596) 37.5 C FIO2 (BEAKER) (test bqfe=0670) 50.0 % Daily ABG with morning labs while patient is intubated.RAD, CHEST, 1 VIEW, NON [id number] 04:59:00Reason for exam:->s/p TEVAR with linesShould this [...] MDReport Verified Date/Time: 07/20/2017 04:59:27 Reading Location: [address] Reading Room [id number] 04:41 :00 Test Item Value Reference Range Comments PHOSPHORUS (BEAKER) (test bvoa=425) 2.8 mg/dL 2.3-4.7 [id number] 04:41:00 Test Item Value Reference Range Comments MAGNESIUM (BEAKER) (test kxpn=024) 2.3 mg/dL 1.6-2.6 BASIC METABOLIC [id number] 04:41:00 Test Item Value Reference Range Comments SODIUM (BEAKER) (test 152 meq/L 136-145 izir=392) POTASSIUM (BEAKER) (test 3.3 meq/L 3.5-5.1 dyks=435) CHLORIDE (BEAKER) (test 113 meq/L 98-107 jhsl=537) CO2 (BEAKER) (test 30 meq/L 22-29 yyfe=839) BLOOD UREA NITROGEN 35 mg/dL 7-21 (BEAKER) (test wure=235) CREATININE (BEAKER) (test 1.37 mg/dL 0.57-1.25 pkdc=060) GLUCOSE RANDOM (BEAKER) 154 mg/dL 70-105 (test twal=914) CALCIUM (BEAKER) (test 9.1 mg/dL 8.4-10.2 swbc=433) EGFR (BEAKER) (test 39 mL/min/1.73 sq m ESTIMATED GFR IS NOT hoxe=5796) ACCURATE CREATININE CLEARANCE IN PREDICTING GLOMERULAR FILTRATION RATE. ESTIMATED GFR IS NOT APPLICABLE FOR DIALYSIS PATIENTS. [id number] 04:21:00 Test Item Value Reference Range Comments PARTIAL THROMBOPLASTIN TIME (BEAKER) (test 25.5 seconds 22.5-36.0 yfvk=908) PROTHROMBIN TIME/[id number] 04:20:00 Test Item Value Reference Range Comments PROTIME (BEAKER) (test eizh=010) 14.5 seconds 11.7-14.7 INR (BEAKER) (test hvyw=445) 1.1 <=5.9 RECOMMENDED COUMADIN/WARFARIN INR THERAPY RANGESSTANDARD DOSE: 2.0 - 3.0 Includes: PROPHYLAXIS forvenous thrombosis, systemic embolization; TREATMENT for venous thrombosis and/or pulmonary embolus.HIGH RISK: Target INR is 2.5-3.5 for patients with mechanical heart valves.CBC (HEMOGRAM ONLY)2017-07-20 04:13:00 Test Item Value Reference Range Comments WHITE BLOOD CELL COUNT (BEAKER) (test voem=939) 9.4 K/ L 3.5-10.5 RED BLOOD CELL COUNT (BEAKER) (test szbb=937) 3.56 M/ L 3.93-5.22 HEMOGLOBIN (BEAKER) (test patl=167) 10.1 GM/DL 11.2-15.7 HEMATOCRIT (BEAKER) (test yqjc=829) 34.2 % 34.1-44.9 MEAN CORPUSCULAR VOLUME (BEAKER) (test xfer=716) 96.1 fL 79.4-94.8 MEAN CORPUSCULAR HEMOGLOBIN (BEAKER) (test 28.4 pg 25.6-32.2 puqn=402) MEAN CORPUSCULAR HEMOGLOBIN CONC (BEAKER) (test 29.5 GM/DL 32.2-35.5 tfnj=526) RED CELL DISTRIBUTION WIDTH (BEAKER) (test 16.0 % 11.7-14.4 ithp=459) PLATELET COUNT (BEAKER) (test uwws=744) 180 K/CU MM 150-450 MEAN PLATELET VOLUME (BEAKER) (test thug=084) 12.0 fL 9.4-12.3 NUCLEATED RED BLOOD CELLS (BEAKER) (test 0 /100 WBC 0-0 zbdx=514) POCT-GLUCOSE [id number] 17:18:00 Test Item Value Reference Range Comments POC-GLUCOSE METER (BEAKER) 171 mg/dL 70-110 TESTED AT [address] (test tvsr=4310) [facility] [address] BLOOD GAS, [id number] 12:49:00 Test Item Value Reference Range Comments PH ARTERIAL (BEAKER) (test ubhb=373) 7.47 7.35-7.45 PCO2 ARTERIAL (BEAKER) (test khki=391) 45 mmHg 35-45 PO2 ARTERIAL (BEAKER) (test maby=165) 75 mmHg 80-90 O2 SATURATION ARTERIAL (BEAKER) (test ufaf=061) 95.8 % 96.0-97.0 HCO3 ARTERIAL (BEAKER) (test ephm=486) 32 mmol/L 21-29 BASE EXCESS ARTERIAL (BEAKER) (test ipbx=875) 7.9 mmol/L -2.0-3.0 PATIENT TEMPERATURE (BEAKER) (test oppb=6890) 37.1 C FIO2 (BEAKER) (test snlm=1463) 50.0 % RAD, ABDOMEN/KUB, 1 VIEW [id number] 09:23:00Reason for exam:->NG tubeFINAL REPORT Abdomen four [...] Verified Date/Time: 07/19/2017 09: 23:13 Reading Location: [address] Consult Reading Room RAD, CHEST, 1 VIEW, NON [id number] 09:13:00Reason for exam:->s/p intubationFINAL REPORT Chest one view AP 07/19/2017 9:13 AM CLINICAL INDICATION: s/p intubation COMPARISON: 07/19/2017 at 0402 IMPRESSION: Support hardware is in satisfactory radiographic position. Cardiomediastinal contours are stable. There is mild pulmonary edema. Opacity in the right lower lobe is concerning for pneumonia. There is bibasilar atelectasis. Signed: Quinn Wiley Verified Date/Time: 07/19/2017 09:13:36 Reading Location: [facility] C0[facility] Consult Reading Room [id number] 04:27:00 Test Item Value Reference Range Comments PHOSPHORUS (BEAKER) (test lubx=392) 2.3 mg/dL 2.3-4.7 [id number] 04:27:00 Test Item Value Reference Range Comments MAGNESIUM (BEAKER) (test njoc=955) 2.1 mg/dL 1.6-2.6 BASIC METABOLIC [id number] 04:27:00 Test Item Value Reference Range Comments SODIUM (BEAKER) (test 151 meq/L 136-145 loib=736) POTASSIUM (BEAKER) (test 3.7 meq/L 3.5-5.1 uhpl=674) CHLORIDE (BEAKER) (test 112 meq/L 98-107 tklm=172) CO2 (BEAKER) (test 29 meq/L 22-29 dcil=484) BLOOD UREA NITROGEN 30 mg/dL 7-21 (BEAKER) (test mebz=863) CREATININE (BEAKER) (test 1.28 mg/dL 0.57-1.25 qyob=195) GLUCOSE RANDOM (BEAKER) 170 mg/dL 70-105 (test buwi=450) CALCIUM (BEAKER) (test 9.2 mg/dL 8.4-10.2 nvdl=353) EGFR (BEAKER) (test 42 mL/min/1.73 sq m ESTIMATED GFR IS NOT azfq=0161) ACCURATE CREATININE CLEARANCE IN PREDICTING GLOMERULAR FILTRATION RATE. ESTIMATED GFR IS NOT APPLICABLE FOR DIALYSIS PATIENTS. [id number] 04:25:00 Test Item Value Reference Range Comments PARTIAL THROMBOPLASTIN TIME (BEAKER) (test 25.2 seconds 22.5-36.0 rqck=184) PROTHROMBIN TIME/[id number] 04:24:00 Test Item Value Reference Range Comments PROTIME (BEAKER) (test oqbp=583) 14.7 seconds 11.7-14.7 INR (BEAKER) (test skkq=542) 1.2 <=5.9 RECOMMENDED COUMADIN/WARFARIN INR THERAPY RANGESSTANDARD DOSE: 2.0 - 3.0 Includes: PROPHYLAXIS forvenous thrombosis, systemic embolization; TREATMENT for venous thrombosis and/or pulmonary embolus.HIGH RISK: Target INR is 2.5-3.5 for patients with mechanical heart valves.RAD, CHEST, 1 VIEW, NON [id number] 04:20:00Reason for exam:->s/p TEVAR with linesShould this be performed at the bedside?->YesFINAL REPORT CLINICAL INDICATION: Postop Comparison: 07/18/2017 The cardiomediastinal contours are stable. Central pulmonary vascular congestion and bilateral parenchymal opacities are similar within variation of acquisition technique. There is no pneumothorax. Support lines are stable. Signed: Sarmad Stevensonepjasbir Verified Date/Time: 04:20:17 Reading Location: [address] Reading Room 04:20 AMBLOOD GAS, [id number] 04:07:00 Test Item Value Reference Range Comments PH ARTERIAL (BEAKER) (test dlts=615) 7.52 7.35-7.45 PCO2 ARTERIAL (BEAKER) (test qtuq=030) 40 mmHg 35-45 PO2 ARTERIAL (BEAKER) (test ecdu=688) 79 mmHg 80-90 O2 SATURATION ARTERIAL (BEAKER) (test fdwl=906) 96.6 % 96.0-97.0 HCO3 ARTERIAL (BEAKER) (test yxks=551) 32 mmol/L 21-29 BASE EXCESS ARTERIAL (BEAKER) (test ugge=738) 8.6 mmol/L -2.0-3.0 PATIENT TEMPERATURE (BEAKER) (test gema=1789) 37.2 C FIO2 (BEAKER) (test tmnm=8190) 40.0 % Daily ABG with morning labs while patient is intubated.CBC (HEMOGRAM ONLY)07-19 04:02:00 Test Item Value Reference Range Comments WHITE BLOOD CELL COUNT (BEAKER) (test apyw=764) 10.1 K/ L 3.5-10.5 RED BLOOD CELL COUNT (BEAKER) (test julj=732) 3.60 M/ L 3.93-5.22 HEMOGLOBIN (BEAKER) (test gzhe=798) 10.4 GM/DL 11.2-15.7 HEMATOCRIT (BEAKER) (test bqik=377) 34.2 % 34.1-44.9 MEAN CORPUSCULAR VOLUME (BEAKER) (test phna=242) 95.0 fL 79.4-94.8 MEAN CORPUSCULAR HEMOGLOBIN (BEAKER) (test 28.9 pg 25.6-32.2 uwsg=114) MEAN CORPUSCULAR HEMOGLOBIN CONC (BEAKER) (test 30.4 GM/DL 32.2-35.5 bizn=973) RED CELL DISTRIBUTION WIDTH (BEAKER) (test 16.1 % 11.7-14.4 qtrk=272) PLATELET COUNT (BEAKER) (test sjvw=609) 182 K/CU MM 150-450 MEAN PLATELET VOLUME (BEAKER) (test uusj=399) 12.0 fL 9.4-12.3 NUCLEATED RED BLOOD CELLS (BEAKER) (test 0 /100 WBC 0-0 gffw=261) RAD, CHEST, 1 VIEW, NON [id number] 07:36:00Reason for exam:->s/p TEVAR with linesShould this [...] MDReport Verified Date/Time: 07/18/2017 07:36:42 Reading Location: [facility] C013Y CT Body Reading Room 07: 36 AMBLOOD GAS, [id number] 04:19:00 Test Item Value Reference Range Comments PH ARTERIAL (BEAKER) (test tgni=765) 7.47 7.35-7.45 PCO2 ARTERIAL (BEAKER) (test jika=552) 49 mmHg 35-45 PO2 ARTERIAL (BEAKER) (test omyw=967) 60 mmHg 80-90 O2 SATURATION ARTERIAL (BEAKER) (test xsrz=858) 91.5 % 96.0-97.0 HCO3 ARTERIAL (BEAKER) (test deth=680) 35 mmol/L 21-29 BASE EXCESS ARTERIAL (BEAKER) (test sbke=748) 9.7 mmol/L -2.0-3.0 PATIENT TEMPERATURE (BEAKER) (test cnif=4910) 37.5 C FIO2 (BEAKER) (test npgj=9944) 40.0 % Daily ABG with morning labs while patient is intubated.[id number] 04: 13:00 Test Item Value Reference Range Comments PHOSPHORUS (BEAKER) (test nsgi=981) 2.2 mg/dL 2.3-4.7 [id number] 04:13:00 Test Item Value Reference Range Comments MAGNESIUM (BEAKER) (test qwcl=113) 2.4 mg/dL 1.6-2.6 BASIC METABOLIC [id number] 04:13:00 Test Item Value Reference Range Comments SODIUM (BEAKER) (test 157 meq/L 136-145 jiff=805) POTASSIUM (BEAKER) (test 3.6 meq/L 3.5-5.1 nzhz=169) CHLORIDE (BEAKER) (test 116 meq/L 98-107 wxwj=320) CO2 (BEAKER) (test 31 meq/L 22-29 kvzx=254) BLOOD UREA NITROGEN 32 mg/dL 7-21 (BEAKER) (test lmky=898) CREATININE (BEAKER) (test 1.30 mg/dL 0.57-1.25 oegs=775) GLUCOSE RANDOM (BEAKER) 142 mg/dL 70-105 (test zyeq=652) CALCIUM (BEAKER) (test 9.3 mg/dL 8.4-10.2 mdul=033) EGFR (BEAKER) (test 42 mL/min/1.73 sq m ESTIMATED GFR IS NOT iyvk=7153) ACCURATE CREATININE CLEARANCE IN PREDICTING GLOMERULAR FILTRATION RATE. ESTIMATED GFR IS NOT APPLICABLE FOR DIALYSIS PATIENTS. [id number] 04:11:00 Test Item Value Reference Range Comments PARTIAL THROMBOPLASTIN TIME (BEAKER) (test 25.6 seconds 22.5-36.0 sqle=108) PROTHROMBIN TIME/[id number] 04:10:00 Test Item Value Reference Range Comments PROTIME (BEAKER) (test mqmc=493) 16.2 seconds 11.7-14.7 INR (BEAKER) (test egap=830) 1.3 <=5.9 RECOMMENDED COUMADIN/WARFARIN INR THERAPY RANGESSTANDARD DOSE: 2.0 - 3.0 Includes: PROPHYLAXIS forvenous thrombosis, systemic embolization; TREATMENT for venous thrombosis and/or pulmonary embolus.HIGH RISK: Target INR is 2.5-3.5 for patients with mechanical heart valves.CBC (HEMOGRAM ONLY)2017-07-18 03:59:00 Test Item Value Reference Range Comments WHITE BLOOD CELL COUNT (BEAKER) (test juze=190) 7.7 K/ L 3.5-10.5 RED BLOOD CELL COUNT (BEAKER) (test ebvu=352) 3.38 M/ L 3.93-5.22 HEMOGLOBIN (BEAKER) (test iyay=854) 9.9 GM/DL 11.2-15.7 HEMATOCRIT (BEAKER) (test mmdg=160) 32.2 % 34.1-44.9 MEAN CORPUSCULAR VOLUME (BEAKER) (test pfxo=542) 95.3 fL 79.4-94.8 MEAN CORPUSCULAR HEMOGLOBIN (BEAKER) (test 29.3 pg 25.6-32.2 hsdr=541) MEAN CORPUSCULAR HEMOGLOBIN CONC (BEAKER) (test 30.7 GM/DL 32.2-35.5 coad=787) RED CELL DISTRIBUTION WIDTH (BEAKER) (test 16.5 % 11.7-14.4 tjbe=106) PLATELET COUNT (BEAKER) (test cieh=840) 154 K/CU MM 150-450 MEAN PLATELET VOLUME (BEAKER) (test ebzh=387) 11.6 fL 9.4-12.3 NUCLEATED RED BLOOD CELLS (BEAKER) (test 0 /100 WBC 0-0 mafl=043) [id number] 19:40:00 Test Item Value Reference Range Comments POTASSIUM (BEAKER) (test ffwq=819) 3.5 meq/L 3.5-5.1 POCT-GLUCOSE [id number] 18:35:00 Test Item Value Reference Range Comments POC-GLUCOSE METER (BEAKER) 95 mg/dL 70-110 TESTED AT [facility] [address] [facility] (test iucj=0518) [facility] [address] [id number] 13:27:00 Test Item Value Reference Range Comments PHOSPHORUS (BEAKER) (test puiw=864) 2.8 mg/dL 2.3-4.7 [id number] 13:27:00 Test Item Value Reference Range Comments MAGNESIUM (BEAKER) (test ddjh=022) 2.5 mg/dL 1.6-2.6 COMPREHENSIVE METABOLIC [id number] 13:27:00 Test Item Value Reference Range Comments TOTAL PROTEIN (BEAKER) 6.9 gm/dL 6.0-8.3 (test gerf=892) ALBUMIN (BEAKER) (test 3.2 g/dL 3.5-5.0 dvtx=2101) ALKALINE PHOSPHATASE 47 U/L 40-150 (BEAKER) (test thpi=058) BILIRUBIN TOTAL (BEAKER) 1.1 mg/dL 0.2-1.2 (test qppz=529) SODIUM (BEAKER) (test 157 meq/L 136-145 pgtj=073) POTASSIUM (BEAKER) (test 3.3 meq/L 3.5-5.1 vler=906) CHLORIDE (BEAKER) (test 114 meq/L 98-107 hwfd=969) CO2 (BEAKER) (test 31 meq/L 22-29 ysko=385) BLOOD UREA NITROGEN 32 mg/dL 7-21 (BEAKER) (test xuvx=015) CREATININE (BEAKER) (test 1.37 mg/dL 0.57-1.25 tlwo=681) GLUCOSE RANDOM (BEAKER) 107 mg/dL 70-105 (test dvgk=435) CALCIUM (BEAKER) (test 9.7 mg/dL 8.4-10.2 acvr=401) AST (SGOT) (BEAKER) (test 34 U/L 5-34 qfcn=723) ALT (SGPT) (BEAKER) (test 26 U/L 6-55 tuqe=334) EGFR (BEAKER) (test 39 mL/min/1.73 sq m ESTIMATED GFR IS NOT fyzq=5219) ACCURATE CREATININE CLEARANCE IN PREDICTING GLOMERULAR FILTRATION RATE. ESTIMATED GFR IS NOT APPLICABLE FOR DIALYSIS PATIENTS. RAD, CHEST, 1 VIEW, NON [id number] 07:13:00Reason for exam:->s/p TEVAR with linesShould this be performed at the bedside?->YesFINAL REPORT Chest one view AP 07/17/2017 7:13 AM CLINICAL INDICATION: s/p TEVAR with lines COMPARISON: 07/16/2017 IMPRESSION: Support hardware is unchanged in position. Cardiomediastinal contours are stable. There is mild pulmonary edema. Bibasilar opacities suggest atelectasis. Pneumonia should be excluded clinically. Signed: Quinn Wiley Verified Date/Time: 07/17 07:13:59 Reading Location: [facility] Radiology Reading Room [id number] 03:55:00 Test Item Value Reference Range Comments PHOSPHORUS (BEAKER) (test oumh=564) 2.5 mg/dL 2.3-4.7 [id number] 03:55:00 Test Item Value Reference Range Comments MAGNESIUM (BEAKER) (test tyyt=116) 2.2 mg/dL 1.6-2.6 BASIC METABOLIC [id number] 03:55:00 Test Item Value Reference Range Comments SODIUM (BEAKER) (test 155 meq/L 136-145 vekc=493) POTASSIUM (BEAKER) (test 3.0 meq/L 3.5-5.1 lkgj=223) CHLORIDE (BEAKER) (test 113 meq/L 98-107 klbq=542) CO2 (BEAKER) (test 30 meq/L 22-29 uqxa=375) BLOOD UREA NITROGEN 32 mg/dL 7-21 (BEAKER) (test svwj=375) CREATININE (BEAKER) (test 1.38 mg/dL 0.57-1.25 lqxu=488) GLUCOSE RANDOM (BEAKER) 105 mg/dL 70-105 (test ymxy=647) CALCIUM (BEAKER) (test 9.6 mg/dL 8.4-10.2 hcmv=178) EGFR (BEAKER) (test 39 mL/min/1.73 sq m ESTIMATED GFR IS NOT fcco=7202) ACCURATE CREATININE CLEARANCE IN PREDICTING GLOMERULAR FILTRATION RATE. ESTIMATED GFR IS NOT APPLICABLE FOR DIALYSIS PATIENTS. CBC (HEMOGRAM ONLY)2017-07-17 03:51:00 Test Item Value Reference Range Comments WHITE BLOOD CELL COUNT (BEAKER) (test wfzk=590) 5.5 K/ L 3.5-10.5 RED BLOOD CELL COUNT (BEAKER) (test hacn=831) 3.21 M/ L 3.93-5.22 HEMOGLOBIN (BEAKER) (test hcvy=217) 9.3 GM/DL 11.2-15.7 HEMATOCRIT (BEAKER) (test rjjo=275) 29.4 % 34.1-44.9 MEAN CORPUSCULAR VOLUME (BEAKER) (test qqvn=226) 91.6 fL 79.4-94.8 MEAN CORPUSCULAR HEMOGLOBIN (BEAKER) (test 29.0 pg 25.6-32.2 xfjj=186) MEAN CORPUSCULAR HEMOGLOBIN CONC (BEAKER) (test 31.6 GM/DL 32.2-35.5 vbil=699) RED CELL DISTRIBUTION WIDTH (BEAKER) (test 16.6 % 11.7-14.4 vzab=983) PLATELET COUNT (BEAKER) (test rxbv=021) 142 K/CU MM 150-450 MEAN PLATELET VOLUME (BEAKER) (test lvsv=224) 11.5 fL 9.4-12.3 NUCLEATED RED BLOOD CELLS (BEAKER) (test 1 /100 WBC 0-0 dctt=595) [id number] 03:49:00 Test Item Value Reference Range Comments PARTIAL THROMBOPLASTIN TIME (BEAKER) (test 28.5 seconds 22.5-36.0 zhgr=348) PROTHROMBIN TIME/[id number] 03:48:00 Test Item Value Reference Range Comments PROTIME (BEAKER) (test rqfw=363) 14.7 seconds 11.7-14.7 INR (BEAKER) (test wtho=200) 1.2 <=5.9 RECOMMENDED COUMADIN/WARFARIN INR THERAPY RANGESSTANDARD DOSE: 2.0 - 3.0 Includes: PROPHYLAXIS forvenous thrombosis, systemic embolization; TREATMENT for venous thrombosis and/or pulmonary embolus.HIGH RISK: Target INR is 2.5-3.5 for patients with mechanical heart valves.BLOOD GAS, [id number] 03:28:00 Test Item Value Reference Range Comments PH ARTERIAL (BEAKER) (test fqoe=262) 7.49 7.35-7.45 PCO2 ARTERIAL (BEAKER) (test ymgp=285) 43 mmHg 35-45 PO2 ARTERIAL (BEAKER) (test dfyh=234) 62 mmHg 80-90 O2 SATURATION ARTERIAL (BEAKER) (test ahdn=718) 92.7 % 96.0-97.0 HCO3 ARTERIAL (BEAKER) (test wfxw=004) 32 mmol/L 21-29 BASE EXCESS ARTERIAL (BEAKER) (test klgt=014) 8.2 mmol/L -2.0-3.0 PATIENT TEMPERATURE (BEAKER) (test vzme=2968) 37.7 C FIO2 (BEAKER) (test apnq=2654) 40.0 % Daily ABG with morning labs while patient is intubated.HEPATIC FUNCTION [id number] 00:47:00 Test Item Value Reference Range Comments TOTAL PROTEIN (BEAKER) (test lxec=963) 6.6 gm/dL 6.0-8.3 ALBUMIN (BEAKER) (test vgwx=8596) 3.1 g/dL 3.5-5.0 BILIRUBIN TOTAL (BEAKER) (test oabi=854) 1.0 mg/dL 0.2-1.2 BILIRUBIN DIRECT (BEAKER) (test oxzp=214) 0.7 mg/dL 0.1-0.5 ALKALINE PHOSPHATASE (BEAKER) (test bpsi=743) 40 U/L 40-150 AST (SGOT) (BEAKER) (test sjif=917) 22 U/L 5-34 ALT (SGPT) (BEAKER) (test lwbo=157) 22 U/L 6-55 PROTHROMBIN TIME/[id number] 00:35:00 Test Item Value Reference Range Comments PROTIME (BEAKER) (test zedh=941) 14.5 seconds 11.7-14.7 INR (BEAKER) (test pqxa=876) 1.1 <=5.9 RECOMMENDED COUMADIN/WARFARIN INR THERAPY RANGESSTANDARD DOSE: 2.0 - 3.0 Includes: PROPHYLAXIS forvenous thrombosis, systemic embolization; TREATMENT for venous thrombosis and/or pulmonary embolus.HIGH RISK: Target INR is 2.5-3.5 for patients with mechanical heart valves.CBC W/PLT COUNT & AUTO [id number] 00:33:00 Test Item Value Reference Range Comments WHITE BLOOD CELL COUNT (BEAKER) (test smkn=271) 5.9 K/ L 3.5-10.5 RED BLOOD CELL COUNT (BEAKER) (test sjkk=444) 3.20 M/ L 3.93-5.22 HEMOGLOBIN (BEAKER) (test tzkv=053) 9.4 GM/DL 11.2-15.7 HEMATOCRIT (BEAKER) (test dgrh=546) 29.4 % 34.1-44.9 MEAN CORPUSCULAR VOLUME (BEAKER) (test efvz=647) 91.9 fL 79.4-94.8 MEAN CORPUSCULAR HEMOGLOBIN (BEAKER) (test 29.4 pg 25.6-32.2 llvi=185) MEAN CORPUSCULAR HEMOGLOBIN CONC (BEAKER) (test 32.0 GM/DL 32.2-35.5 vqng=858) RED CELL DISTRIBUTION WIDTH (BEAKER) (test 16.4 % 11.7-14.4 stad=582) PLATELET COUNT (BEAKER) (test ebai=530) 136 K/CU MM 150-450 MEAN PLATELET VOLUME (BEAKER) (test spyq=426) 11.9 fL 9.4-12.3 NUCLEATED RED BLOOD CELLS (BEAKER) (test 1 /100 WBC 0-0 eciv=136) NEUTROPHILS RELATIVE PERCENT (BEAKER) (test 77 % huyf=935) LYMPHOCYTES RELATIVE PERCENT (BEAKER) (test 9 % exzc=689) MONOCYTES RELATIVE PERCENT (BEAKER) (test 8 % zknv=782) EOSINOPHILS RELATIVE PERCENT (BEAKER) (test 0 % mkhs=880) BASOPHILS RELATIVE PERCENT (BEAKER) (test 0 % imgh=901) NEUTROPHILS ABSOLUTE COUNT (BEAKER) (test 4.52 K/ L 1.56-6.13 kcwh=266) LYMPHOCYTES ABSOLUTE COUNT (BEAKER) (test 0.53 K/ L 1.18-3.74 srnu=077) MONOCYTES ABSOLUTE COUNT (BEAKER) (test 0.44 K/ L 0.24-0.36 humh=630) EOSINOPHILS ABSOLUTE COUNT (BEAKER) (test 0.01 K/ L 0.04-0.36 xbvg=321) BASOPHILS ABSOLUTE COUNT (BEAKER) (test 0.00 K/ L 0.01-0.08 tyfz=010) IMMATURE GRANULOCYTES-RELATIVE PERCENT (BEAKER) 6 % 0-1 (test lmmv=9411) POCT-GLUCOSE [id number] 16:59:00 Test Item Value Reference Range Comments POC-GLUCOSE METER (BEAKER) 103 mg/dL 70-110 TESTED AT [address] (test tzal=1538) [facility] [address] HEMOGLOBIN AND [id number] 14:35:00 Test Item Value Reference Range Comments HEMOGLOBIN (BEAKER) (test kiiu=890) 9.3 GM/DL 11.2-15.7 HEMATOCRIT (BEAKER) (test yqas=108) 28.7 % 34.1-44.9 RAD, CHEST, 1 VIEW, NON [id number] 05:46:00Reason for exam:->s/p TEVAR with linesShould this [...] MDReport Verified Date/Time: 07/16/2017 05:46:18 Reading Location: [address] Reading Room 05 :46 [id number] 04:34:00 Test Item Value Reference Range Comments PHOSPHORUS (BEAKER) (test quzv=365) 2.0 mg/dL 2.3-4.7 [id number] 04:34:00 Test Item Value Reference Range Comments MAGNESIUM (BEAKER) (test vxcl=282) 2.2 mg/dL 1.6-2.6 BASIC METABOLIC [id number] 04:34:00 Test Item Value Reference Range Comments SODIUM (BEAKER) (test 150 meq/L 136-145 snpw=329) POTASSIUM (BEAKER) (test 3.5 meq/L 3.5-5.1 rqej=476) CHLORIDE (BEAKER) (test 113 meq/L 98-107 hatb=281) CO2 (BEAKER) (test 29 meq/L 22-29 gwnz=753) BLOOD UREA NITROGEN 31 mg/dL 7-21 (BEAKER) (test cltr=696) CREATININE (BEAKER) (test 1.53 mg/dL 0.57-1.25 ubbr=286) GLUCOSE RANDOM (BEAKER) 100 mg/dL 70-105 (test lwfx=058) CALCIUM (BEAKER) (test 9.3 mg/dL 8.4-10.2 imjy=573) EGFR (BEAKER) (test 34 mL/min/1.73 sq m ESTIMATED GFR IS NOT fhfo=8659) ACCURATE CREATININE CLEARANCE IN PREDICTING GLOMERULAR FILTRATION RATE. ESTIMATED GFR IS NOT APPLICABLE FOR DIALYSIS PATIENTS. PROTHROMBIN TIME/[id number] 04:21:00 Test Item Value Reference Range Comments PROTIME (BEAKER) (test vrgt=951) 15.4 seconds 11.7-14.7 INR (BEAKER) (test icsg=084) 1.2 <=5.9 RECOMMENDED COUMADIN/WARFARIN INR THERAPY RANGESSTANDARD DOSE: 2.0 - 3.0 Includes: PROPHYLAXIS forvenous thrombosis, systemic embolization; TREATMENT for venous thrombosis and/or pulmonary embolus.HIGH RISK: Target INR is 2.5-3.5 for patients with mechanical heart valves.[id number] 04:21:00 Test Item Value Reference Range Comments PARTIAL THROMBOPLASTIN TIME (BEAKER) (test 30.1 seconds 22.5-36.0 rktj=238) CBC (HEMOGRAM ONLY)2017-07-16 04:19:00 Test Item Value Reference Range Comments WHITE BLOOD CELL COUNT (BEAKER) (test wsmm=202) 5.3 K/ L 3.5-10.5 RED BLOOD CELL COUNT (BEAKER) (test fuij=409) 2.98 M/ L 3.93-5.22 HEMOGLOBIN (BEAKER) (test xslq=872) 8.8 GM/DL 11.2-15.7 HEMATOCRIT (BEAKER) (test niez=814) 27.0 % 34.1-44.9 MEAN CORPUSCULAR VOLUME (BEAKER) (test mvbx=102) 90.6 fL 79.4-94.8 MEAN CORPUSCULAR HEMOGLOBIN (BEAKER) (test 29.5 pg 25.6-32.2 xoxu=388) MEAN CORPUSCULAR HEMOGLOBIN CONC (BEAKER) (test 32.6 GM/DL 32.2-35.5 kzmy=333) RED CELL DISTRIBUTION WIDTH (BEAKER) (test 16.4 % 11.7-14.4 hfty=116) PLATELET COUNT (BEAKER) (test xfda=950) 125 K/CU MM 150-450 MEAN PLATELET VOLUME (BEAKER) (test gbyy=214) 11.5 fL 9.4-12.3 NUCLEATED RED BLOOD CELLS (BEAKER) (test 1 /100 WBC 0-0 xyeu=065) BLOOD GAS, [id number] 04:10:00 Test Item Value Reference Range Comments PH ARTERIAL (BEAKER) (test gxwt=679) 7.44 7.35-7.45 PCO2 ARTERIAL (BEAKER) (test wwqb=189) 45 mmHg 35-45 PO2 ARTERIAL (BEAKER) (test hawp=027) 67 mmHg 80-90 O2 SATURATION ARTERIAL (BEAKER) (test pmvd=376) 93.2 % 96.0-97.0 HCO3 ARTERIAL (BEAKER) (test vzwv=490) 30 mmol/L 21-29 BASE EXCESS ARTERIAL (BEAKER) (test gubc=649) 5.0 mmol/L -2.0-3.0 PATIENT TEMPERATURE (BEAKER) (test scxt=4221) 37.7 C FIO2 (BEAKER) (test lrrd=3201) 55.0 % Daily ABG with morning labs while patient is intubated.POCT-GLUCOSE [id number] 04:09:00 Test Item Value Reference Range Comments POC-GLUCOSE METER (BEAKER) 105 mg/dL 70-110 TESTED AT [address] (test cddc=7430) [facility] [address] POCT-GLUCOSE [id number] 04:09:00 Test Item Value Reference Range Comments POC-GLUCOSE METER (BEAKER) 98 mg/dL 70-110 TESTED AT [address] (test conw=0249) [facility] [address] POCT-GLUCOSE [id number] 00:21:00 Test Item Value Reference Range Comments POC-GLUCOSE METER (BEAKER) 111 mg/dL 70-110 TESTED AT [address] (test jnoo=8048) [facility] [address] POCT-GLUCOSE [id number] 20:18:00 Test Item Value Reference Range Comments POC-GLUCOSE METER (BEAKER) 84 mg/dL 70-110 TESTED AT [address] (test onaj=5767) [facility] [address] POCT-GLUCOSE [id number] 18:31:00 Test Item Value Reference Range Comments POC-GLUCOSE METER (BEAKER) 83 mg/dL 70-110 TESTED AT [address] (test ixdc=5167) [facility] [address] POCT-GLUCOSE [id number] 15:52:00 Test Item Value Reference Range Comments POC-GLUCOSE METER (BEAKER) 97 mg/dL 70-110 TESTED AT [address] (test nzot=2792) [facility] [address] POCT-GLUCOSE [id number] 15:52:00 Test Item Value Reference Range Comments POC-GLUCOSE METER (BEAKER) 108 mg/dL 70-110 TESTED AT [address] (test cifs=5486) [facility] [address] GLUCOSE-STAT [id number] 12:32:00 Test Item Value Reference Range Comments GLUCOSE RANDOM (BEAKER) (test phqt=071) 90 mg/dL 70-110 HGB/HCT (H&H) - STAT [id number] 12:32:00 Test Item Value Reference Range Comments HEMOGLOBIN (BEAKER) (test fpps=755) 10.2 g/dL 12.0-15.0 HEMATOCRIT (BEAKER) (test ufvd=903) 30.0 % 36.0-45.0 POCT-GLUCOSE [id number] 11:08:00 Test Item Value Reference Range Comments POC-GLUCOSE METER (BEAKER) 109 mg/dL 70-110 TESTED AT [address] (test lyiy=4225) [place] [address] POCT-GLUCOSE [id number] 06:02:00 Test Item Value Reference Range Comments POC-GLUCOSE METER (BEAKER) 122 mg/dL 70-110 TESTED AT [address] (test krjk=6168) [place] [id number] BLOOD [id number] 05:01:00 Test Item Value Reference Range Comments CULTURE (BEAKER) (test qeto=4904) No growth in 5 days BASIC METABOLIC [id number] 04:44:00 Test Item Value Reference Range Comments SODIUM (BEAKER) (test 145 meq/L 136-145 qjwn=970) POTASSIUM (BEAKER) (test 3.9 meq/L 3.5-5.1 cokp=588) CHLORIDE (BEAKER) (test 113 meq/L 98-107 pvuh=560) CO2 (BEAKER) (test 25 meq/L 22-29 ohgw=407) BLOOD UREA NITROGEN 34 mg/dL 7-21 (BEAKER) (test dzvd=258) CREATININE (BEAKER) (test 1.82 mg/dL 0.57-1.25 rdba=872) GLUCOSE RANDOM (BEAKER) 113 mg/dL 70-105 (test yziv=844) CALCIUM (BEAKER) (test 8.9 mg/dL 8.4-10.2 tgzq=842) EGFR (BEAKER) (test 28 mL/min/1.73 sq m ESTIMATED GFR IS NOT wtjx=3829) ACCURATE CREATININE CLEARANCE IN PREDICTING GLOMERULAR FILTRATION RATE. ESTIMATED GFR IS NOT APPLICABLE FOR DIALYSIS PATIENTS. POCT-GLUCOSE [id number] 04:44:00 Test Item Value Reference Range Comments POC-GLUCOSE METER (BEAKER) 123 mg/dL 70-110 TESTED AT [facility] [address] (test xyom=2855) [place] [address] [id number] 04:43:00 Test Item Value Reference Range Comments PHOSPHORUS (BEAKER) (test edqp=903) 2.8 mg/dL 2.3-4.7 [id number] 04:43:00 Test Item Value Reference Range Comments MAGNESIUM (BEAKER) (test ajzm=967) 2.0 mg/dL 1.6-2.6 [id number] 04:27:00 Test Item Value Reference Range Comments PARTIAL THROMBOPLASTIN TIME (BEAKER) (test 28.6 seconds 22.5-36.0 lrpv=192) PROTHROMBIN TIME/[id number] 04:26:00 Test Item Value Reference Range Comments PROTIME (BEAKER) (test rztw=729) 15.8 seconds 11.7-14.7 INR (BEAKER) (test pjvg=976) 1.3 <=5.9 RECOMMENDED COUMADIN/WARFARIN INR THERAPY RANGESSTANDARD DOSE: 2.0 - 3.0 Includes: PROPHYLAXIS forvenous thrombosis, systemic embolization; TREATMENT for venous thrombosis and/or pulmonary embolus.HIGH RISK: Target INR is 2.5-3.5 for patients with mechanical heart valves.BLOOD GAS, [id number] 04:12:00 Test Item Value Reference Range Comments PH ARTERIAL (BEAKER) (test edbf=936) 7.34 7.35-7.45 PCO2 ARTERIAL (BEAKER) (test rlwi=675) 52 mmHg 35-45 PO2 ARTERIAL (BEAKER) (test cryp=868) 79 mmHg 80-90 O2 SATURATION ARTERIAL (BEAKER) (test qchn=197) 94.3 % 96.0-97.0 HCO3 ARTERIAL (BEAKER) (test ergj=226) 27 mmol/L 21-29 BASE EXCESS ARTERIAL (BEAKER) (test ipou=347) 1.2 mmol/L -2.0-3.0 PATIENT TEMPERATURE (BEAKER) (test fqcz=5420) 37.6 C FIO2 (BEAKER) (test nchi=8401) 90.0 % Daily ABG with morning labs while patient is intubated.CBC (HEMOGRAM ONLY)07-15 04:12:00 Test Item Value Reference Range Comments WHITE BLOOD CELL COUNT (BEAKER) (test slnz=520) 7.7 K/ L 3.5-10.5 RED BLOOD CELL COUNT (BEAKER) (test bxil=906) 2.70 M/ L 3.93-5.22 HEMOGLOBIN (BEAKER) (test nvje=404) 8.0 GM/DL 11.2-15.7 HEMATOCRIT (BEAKER) (test iqze=179) 25.0 % 34.1-44.9 MEAN CORPUSCULAR VOLUME (BEAKER) (test npoj=954) 92.6 fL 79.4-94.8 MEAN CORPUSCULAR HEMOGLOBIN (BEAKER) (test 29.6 pg 25.6-32.2 oaqh=958) MEAN CORPUSCULAR HEMOGLOBIN CONC (BEAKER) (test 32.0 GM/DL 32.2-35.5 cecl=836) RED CELL DISTRIBUTION WIDTH (BEAKER) (test 15.9 % 11.7-14.4 icbb=609) PLATELET COUNT (BEAKER) (test xyph=373) 132 K/CU MM 150-450 MEAN PLATELET VOLUME (BEAKER) (test ouje=551) 11.1 fL 9.4-12.3 NUCLEATED RED BLOOD CELLS (BEAKER) (test 1 /100 WBC 0-0 ovpn=595) RAD, CHEST, 1 VIEW, NON [id number] 03:29:00Reason for exam:->s/p TEVAR with linesShould this [...] MDReport Verified Date/Time: 07/15/2017 03:29:41 Reading Location: [address] Reading Room POCT- GLUCOSE [id number] 02:23:00 Test Item Value Reference Range Comments POC-GLUCOSE METER (BEAKER) 142 mg/dL 70-110 TESTED AT [address] (test aoff=2045) [place] [id number] POCT-GLUCOSE [id number] 23:51:00 Test Item Value Reference Range Comments POC-GLUCOSE METER (BEAKER) 141 mg/dL 70-110 TESTED AT [address] (test fqih=5931) [place] [id number] POCT-GLUCOSE [id number] 21:59:00 Test Item Value Reference Range Comments POC-GLUCOSE METER (BEAKER) 133 mg/dL 70-110 TESTED AT [address] (test sshd=7771) [place] [address] POCT-GLUCOSE [id number] 19:55:00 Test Item Value Reference Range Comments POC-GLUCOSE METER (BEAKER) 138 mg/dL 70-110 TESTED AT [address] (test vlqs=1536) [place] [address] HEMOGLOBIN AND [id number] 18:42:00 Test Item Value Reference Range Comments HEMOGLOBIN (BEAKER) (test ptot=777) 8.3 GM/DL 11.2-15.7 HEMATOCRIT (BEAKER) (test wkuc=009) 25.8 % 34.1-44.9 POCT-GLUCOSE [id number] 18:23:00 Test Item Value Reference Range Comments POC-GLUCOSE METER (BEAKER) 143 mg/dL 70-110 TESTED AT [address] (test tjxu=3505) [place] [address] POCT-GLUCOSE [id number] 16:11:00 Test Item Value Reference Range Comments POC-GLUCOSE METER (BEAKER) 141 mg/dL 70-110 TESTED AT [address] (test zkuq=2931) [place] [address] POCT-GLUCOSE [id number] 14:10:00 Test Item Value Reference Range Comments POC-GLUCOSE METER (BEAKER) 118 mg/dL 70-110 TESTED AT [address] (test wzjp=1590) [place] [address] HEMOGLOBIN AND [id number] 13:16:00 Test Item Value Reference Range Comments HEMOGLOBIN (BEAKER) (test ghzp=999) 8.9 GM/DL 11.2-15.7 HEMATOCRIT (BEAKER) (test zljr=725) 28.4 % 34.1-44.9 POCT-GLUCOSE [id number] 13:04:00 Test Item Value Reference Range Comments POC-GLUCOSE METER (BEAKER) 139 mg/dL 70-110 TESTED AT [address] (test pdpp=3287) [place] [address] SPUTUM CULTURE + GRAM [id number] 12:21:00 Test Item Value Reference Range Comments CULTURE (BEAKER) (test 3+ Normal respiratory ambreen yzyk=4852) present GRAM STAIN RESULT (BEAKER) 1+ WBCs (test cppx=4192) GRAM STAIN RESULT (BEAKER) 0-5 epithelial cells (test bltm=31427) GRAM STAIN RESULT (BEAKER) <1+ gram positive rods (test hptc=98491) GRAM STAIN RESULT (BEAKER) <1+ gram positive cocci in pairs (test dhpn=403757) POCT-GLUCOSE [id number] 12:05:00 Test Item Value Reference Range Comments POC-GLUCOSE METER (BEAKER) 98 mg/dL 70-110 TESTED AT [address] (test aihk=2896) [place] [address] POCT-GLUCOSE [id number] 10:14:00 Test Item Value Reference Range Comments POC-GLUCOSE METER (BEAKER) 108 mg/dL 70-110 TESTED AT [address] (test zfud=1718) [place] [address] POCT-GLUCOSE [id number] 08:06:00 Test Item Value Reference Range Comments POC-GLUCOSE METER (BEAKER) 115 mg/dL 70-110 TESTED AT [address] (test ircc=5103) [place] [address] RAD, CHEST, 1 VIEW, NON [id number] 07:45:00Reason for exam:->s/p TEVAR with linesShould this [...] MDReport Verified Date/Time: 07/14/2017 07:45:16 Reading Location: [facility] [id number] Ortho Consult Reading Room POCT- GLUCOSE [id number] 06:00:00 Test Item Value Reference Range Comments POC-GLUCOSE METER (BEAKER) 132 mg/dL 70-110 TESTED AT [facility] [address] [facility] (test viic=0842) [facility] [address] CBC (HEMOGRAM ONLY)2017-07-14 05:27:00 Test Item Value Reference Range Comments WHITE BLOOD CELL COUNT (BEAKER) (test zsjo=396) 11.5 K/ L 3.5-10.5 RED BLOOD CELL COUNT (BEAKER) (test hndo=126) 2.92 M/ L 3.93-5.22 HEMOGLOBIN (BEAKER) (test txzy=136) 8.6 GM/DL 11.2-15.7 HEMATOCRIT (BEAKER) (test ddkw=993) 27.0 % 34.1-44.9 MEAN CORPUSCULAR VOLUME (BEAKER) (test ffrh=237) 92.5 fL 79.4-94.8 MEAN CORPUSCULAR HEMOGLOBIN (BEAKER) (test 29.5 pg 25.6-32.2 lere=142) MEAN CORPUSCULAR HEMOGLOBIN CONC (BEAKER) (test 31.9 GM/DL 32.2-35.5 zova=932) RED CELL DISTRIBUTION WIDTH (BEAKER) (test 15.9 % 11.7-14.4 uoum=691) PLATELET COUNT (BEAKER) (test iyad=059) 177 K/CU MM 150-450 MEAN PLATELET VOLUME (BEAKER) (test pyge=303) 11.3 fL 9.4-12.3 NUCLEATED RED BLOOD CELLS (BEAKER) (test 0 /100 WBC 0-0 tnfh=451) BASIC METABOLIC [id number] 04:59:00 Test Item Value Reference Range Comments SODIUM (BEAKER) (test 147 meq/L 136-145 duyg=661) POTASSIUM (BEAKER) (test 4.6 meq/L 3.5-5.1 gdhw=503) CHLORIDE (BEAKER) (test 116 meq/L 98-107 phex=876) CO2 (BEAKER) (test 25 meq/L 22-29 yhns=021) BLOOD UREA NITROGEN 36 mg/dL 7-21 (BEAKER) (test ivln=470) CREATININE (BEAKER) (test 2.11 mg/dL 0.57-1.25 zxib=598) GLUCOSE RANDOM (BEAKER) 121 mg/dL 70-105 (test abqa=491) CALCIUM (BEAKER) (test 8.5 mg/dL 8.4-10.2 kwkr=426) EGFR (BEAKER) (test 24 mL/min/1.73 sq m ESTIMATED GFR IS NOT tvcb=3645) ACCURATE CREATININE CLEARANCE IN PREDICTING GLOMERULAR FILTRATION RATE. ESTIMATED GFR IS NOT APPLICABLE FOR DIALYSIS PATIENTS. BLOOD GAS, [id number] 04:43:00 Test Item Value Reference Range Comments PH ARTERIAL (BEAKER) (test bqdy=367) 7.25 7.35-7.45 PCO2 ARTERIAL (BEAKER) (test qayj=901) 57 mmHg 35-45 PO2 ARTERIAL (BEAKER) (test ecox=404) 63 mmHg 80-90 O2 SATURATION ARTERIAL (BEAKER) (test cbmc=595) 86.8 % 96.0-97.0 HCO3 ARTERIAL (BEAKER) (test ccup=362) 24 mmol/L 21-29 BASE EXCESS ARTERIAL (BEAKER) (test xpeh=092) -3.4 mmol/L -2.0-3.0 PATIENT TEMPERATURE (BEAKER) (test rtvu=0299) 37.6 C FIO2 (BEAKER) (test ocqn=1565) 100.0 % Daily ABG with morning labs while patient is intubated.[id number] 04:38:00 Test Item Value Reference Range Comments PARTIAL THROMBOPLASTIN TIME (BEAKER) (test 28.6 seconds 22.5-36.0 hsdl=272) PROTHROMBIN [id number] 04:37:00 Test Item Value Reference Range Comments PROTIME (BEAKER) (test mdyt=086) 15.3 seconds 11.7-14.7 INR (BEAKER) (test lfdn=222) 1.2 <=5.9 RECOMMENDED COUMADIN/WARFARIN INR THERAPY RANGESSTANDARD DOSE: 2.0 - 3.0 Includes: PROPHYLAXIS forvenous thrombosis, systemic embolization; TREATMENT for venous thrombosis and/or pulmonary embolus.HIGH RISK: Target INR is 2.5-3.5 for patients with mechanical heart valves.[id number] 04:36:00 Test Item Value Reference Range Comments PHOSPHORUS (BEAKER) (test ednx=258) 3.5 mg/dL 2.3-4.7 [id number] 04:36:00 Test Item Value Reference Range Comments MAGNESIUM (BEAKER) (test ovso=210) 1.7 mg/dL 1.6-2.6 POCT-GLUCOSE [id number] 04:11:00 Test Item Value Reference Range Comments POC-GLUCOSE METER (BEAKER) 136 mg/dL 70-110 TESTED AT [address] (test xmhj=9438) [facility] [address] POCT-GLUCOSE [id number] 04:10:00 Test Item Value Reference Range Comments POC-GLUCOSE METER (BEAKER) 132 mg/dL 70-110 TESTED AT [address] (test rxwq=4020) [facility] [address] POCT-GLUCOSE [id number] 23:58:00 Test Item Value Reference Range Comments POC-GLUCOSE METER (BEAKER) 143 mg/dL 70-110 TESTED AT [address] (test ekqe=2964) [facility] [address] POCT-GLUCOSE [id number] 23:29:00 Test Item Value Reference Range Comments POC-GLUCOSE METER (BEAKER) 137 mg/dL 70-110 TESTED AT [address] (test uhez=3612) [facility] [address] POCT-GLUCOSE [id number] 22:04:00 Test Item Value Reference Range Comments POC-GLUCOSE METER (BEAKER) 144 mg/dL 70-110 TESTED AT [address] (test ccrk=8738) [facility] [address] POCT-GLUCOSE [id number] 22:04:00 Test Item Value Reference Range Comments POC-GLUCOSE METER (BEAKER) 135 mg/dL 70-110 TESTED AT [address] (test emep=7196) [facility] [address] POCT-GLUCOSE [id number] 20:31:00 Test Item Value Reference Range Comments POC-GLUCOSE METER (BEAKER) 151 mg/dL 70-110 TESTED AT [address] (test gzlw=5662) [facility] [address] POCT-GLUCOSE [id number] 19:10:00 Test Item Value Reference Range Comments POC-GLUCOSE METER (BEAKER) 128 mg/dL 70-110 TESTED AT [address] (test okxv=2476) [place] [address] [id number] 18:46:00 Test Item Value Reference Range Comments POTASSIUM (BEAKER) (test olea=564) 4.8 meq/L 3.5-5.1 HEMOGLOBIN AND [id number] 18:19:00 Test Item Value Reference Range Comments HEMOGLOBIN (BEAKER) (test imjs=840) 9.8 GM/DL 11.2-15.7 HEMATOCRIT (BEAKER) (test pkmw=459) 30.1 % 34.1-44.9 POCT-GLUCOSE [id number] 18:14:00 Test Item Value Reference Range Comments POC-GLUCOSE METER (BEAKER) 139 mg/dL 70-110 TESTED AT [address] (test gbyy=2890) [place] [address] POCT-GLUCOSE [id number] 18:14:00 Test Item Value Reference Range Comments POC-GLUCOSE METER (BEAKER) 127 mg/dL 70-110 TESTED AT [address] (test vocd=3696) [place] [address] POCT-GLUCOSE [id number] 16:14:00 Test Item Value Reference Range Comments POC-GLUCOSE METER (BEAKER) 82 mg/dL 70-110 TESTED AT [address] (test teji=3703) [place] [address] BLOOD GAS, [id number] 14:20:00 Test Item Value Reference Range Comments PH ARTERIAL (BEAKER) (test pxyz=702) 7.24 7.35-7.45 PCO2 ARTERIAL (BEAKER) (test blto=389) 57 mmHg 35-45 PO2 ARTERIAL (BEAKER) (test zrvk=476) 58 mmHg 80-90 O2 SATURATION ARTERIAL (BEAKER) (test mivx=299) 86.6 % 96.0-97.0 HCO3 ARTERIAL (BEAKER) (test yetl=871) 24 mmol/L 21-29 BASE EXCESS ARTERIAL (BEAKER) (test nuqg=146) -4.1 mmol/L -2.0-3.0 PATIENT TEMPERATURE (BEAKER) (test nwdf=6723) 36.1 C FIO2 (BEAKER) (test essx=7270) 100.0 % POCT-GLUCOSE [id number] 14:18:00 Test Item Value Reference Range Comments POC-GLUCOSE METER (BEAKER) 107 mg/dL 70-110 TESTED AT [address] (test xpxj=2932) [place] [address] POCT-GLUCOSE [id number] 13:22:00 Test Item Value Reference Range Comments POC-GLUCOSE METER (BEAKER) 110 mg/dL 70-110 TESTED AT [address] (test dewm=3653) [place] [address] BLOOD GAS, [id number] 12:11:00 Test Item Value Reference Range Comments PH ARTERIAL (BEAKER) (test wzin=031) 7.23 7.35-7.45 PCO2 ARTERIAL (BEAKER) (test gdlg=165) 57 mmHg 35-45 PO2 ARTERIAL (BEAKER) (test ldae=295) 57 mmHg 80-90 O2 SATURATION ARTERIAL (BEAKER) (test oijr=042) 84.5 % 96.0-97.0 HCO3 ARTERIAL (BEAKER) (test dwci=892) 24 mmol/L 21-29 BASE EXCESS ARTERIAL (BEAKER) (test euoa=215) -4.4 mmol/L -2.0-3.0 PATIENT TEMPERATURE (BEAKER) (test unjk=8363) 36.7 C FIO2 (BEAKER) (test zuub=4951) 90.0 % HEMOGLOBIN AND [id number] 12:07:00 Test Item Value Reference Range Comments HEMOGLOBIN (BEAKER) (test sdfc=841) 9.1 GM/DL 11.2-15.7 HEMATOCRIT (BEAKER) (test kuwx=281) 28.9 % 34.1-44.9 POCT-GLUCOSE [id number] 12:05:00 Test Item Value Reference Range Comments POC-GLUCOSE METER (BEAKER) 144 mg/dL 70-110 TESTED AT [address] (test qbmr=8997) [place] [address] POCT-GLUCOSE [id number] 11:41:00 Test Item Value Reference Range Comments POC-GLUCOSE METER (BEAKER) 134 mg/dL 70-110 TESTED AT [address] (test jfnz=0992) [place] [address] POCT-GLUCOSE [id number] 10:36:00 Test Item Value Reference Range Comments POC-GLUCOSE METER (BEAKER) 179 mg/dL 70-110 TESTED AT [address] (test ietx=9176) [facility] [address] [id number] 10:25:00 Test Item Value Reference Range Comments MAGNESIUM (BEAKER) (test 1.8 mg/dL 1.6-2.6 Specimen slightly hemolyzed alri=011) [id number] 10:25:00 Test Item Value Reference Range Comments PHOSPHORUS (BEAKER) (test 3.6 mg/dL 2.3-4.7 Specimen slightly hemolyzed nlmc=133) BASIC METABOLIC [id number] 10:25:00 Test Item Value Reference Range Comments SODIUM (BEAKER) (test 140 meq/L 136-145 vacb=282) POTASSIUM (BEAKER) (test 5.4 meq/L 3.5-5.1 Specimen slightly zgey=016) hemolyzed CHLORIDE (BEAKER) (test 113 meq/L 98-107 mkmw=466) CO2 (BEAKER) (test 16 meq/L 22-29 ibyg=780) BLOOD UREA NITROGEN 31 mg/dL 7-21 (BEAKER) (test ajmv=663) CREATININE (BEAKER) (test 1.73 mg/dL 0.57-1.25 Specimen slightly lnhl=900) hemolyzed GLUCOSE RANDOM (BEAKER) 97 mg/dL 70-105 (test fouu=516) CALCIUM (BEAKER) (test 8.8 mg/dL 8.4-10.2 snkj=305) EGFR (BEAKER) (test 30 mL/min/1.73 sq m ESTIMATED GFR IS NOT olfj=2087) ACCURATE CREATININE CLEARANCE IN PREDICTING GLOMERULAR FILTRATION RATE. ESTIMATED GFR IS NOT APPLICABLE FOR DIALYSIS PATIENTS. POCT-GLUCOSE [id number] 10:01:00 Test Item Value Reference Range Comments POC-GLUCOSE METER (BEAKER) 177 mg/dL 70-110 TESTED AT [place] [id number] [facility] (test fczx=8341) [facility] [address] PROTHROMBIN [id number] 09:48:00 Test Item Value Reference Range Comments PROTIME (BEAKER) (test duul=104) 14.0 seconds 11.7-14.7 INR (BEAKER) (test ygqf=241) 1.1 <=5.9 RECOMMENDED COUMADIN/WARFARIN INR THERAPY RANGESSTANDARD DOSE: 2.0 - 3.0 Includes: PROPHYLAXIS forvenous thrombosis, systemic embolization; TREATMENT for venous thrombosis and/or pulmonary embolus.HIGH RISK: Target INR is 2.5-3.5 for patients with mechanical heart valves.[id number] 09:48:00 Test Item Value Reference Range Comments PARTIAL THROMBOPLASTIN TIME (BEAKER) (test 26.0 seconds 22.5-36.0 hhma=127) CBC (HEMOGRAM ONLY)2017-07-13 09:42:00 Test Item Value Reference Range Comments WHITE BLOOD CELL COUNT (BEAKER) (test yseq=172) 18.5 K/ L 3.5-10.5 RED BLOOD CELL COUNT (BEAKER) (test rrdp=055) 3.15 M/ L 3.93-5.22 HEMOGLOBIN (BEAKER) (test qzvs=563) 9.2 GM/DL 11.2-15.7 HEMATOCRIT (BEAKER) (test ttmo=058) 30.9 % 34.1-44.9 MEAN CORPUSCULAR VOLUME (BEAKER) (test dydo=230) 98.1 fL 79.4-94.8 MEAN CORPUSCULAR HEMOGLOBIN (BEAKER) (test 29.2 pg 25.6-32.2 enkm=275) MEAN CORPUSCULAR HEMOGLOBIN CONC (BEAKER) (test 29.8 GM/DL 32.2-35.5 emxw=837) RED CELL DISTRIBUTION WIDTH (BEAKER) (test 15.2 % 11.7-14.4 ltro=065) PLATELET COUNT (BEAKER) (test ezoz=107) 297 K/CU MM 150-450 MEAN PLATELET VOLUME (BEAKER) (test dyqv=711) 12.0 fL 9.4-12.3 NUCLEATED RED BLOOD CELLS (BEAKER) (test 0 /100 WBC 0-0 zhzj=165) TSH/FREE T4 IF [id number] 09:16:00 Test Item Value Reference Range Comments THYROID STIMULATING HORMONE (BEAKER) (test 2.18 uIU/mL 0.35-4.94 kkcx=872) POCT-GLUCOSE [id number] 09:16:00 Test Item Value Reference Range Comments POC-GLUCOSE METER (BEAKER) 168 mg/dL 70-110 TESTED AT [facility] [address] [facility] (test ferr=7619) [facility] [address] POCT-GLUCOSE [id number] 09:16:00 Test Item Value Reference Range Comments POC-GLUCOSE METER (BEAKER) 159 mg/dL 70-110 TESTED AT [facility] [address] [facility] (test iqkf=6521) [facility] [address] CBC W/PLT COUNT & AUTO [id number] 09:03:00 Test Item Value Reference Range Comments WHITE BLOOD CELL COUNT (BEAKER) (test kgqp=136) 17.3 K/ L 3.5-10.5 RED BLOOD CELL COUNT (BEAKER) (test osqf=019) 2.91 M/ L 3.93-5.22 HEMOGLOBIN (BEAKER) (test bhsv=267) 8.6 GM/DL 11.2-15.7 HEMATOCRIT (BEAKER) (test kewq=600) 28.2 % 34.1-44.9 MEAN CORPUSCULAR VOLUME (BEAKER) (test jpde=823) 96.9 fL 79.4-94.8 MEAN CORPUSCULAR HEMOGLOBIN (BEAKER) (test 29.6 pg 25.6-32.2 ysmo=978) MEAN CORPUSCULAR HEMOGLOBIN CONC (BEAKER) (test 30.5 GM/DL 32.2-35.5 xckn=603) RED CELL DISTRIBUTION WIDTH (BEAKER) (test 15.3 % 11.7-14.4 radt=470) PLATELET COUNT (BEAKER) (test jxfl=155) 253 K/CU MM 150-450 MEAN PLATELET VOLUME (BEAKER) (test nfqn=380) 11.5 fL 9.4-12.3 NUCLEATED RED BLOOD CELLS (BEAKER) (test 0 /100 WBC 0-0 zpgb=813) NEUTROPHILS RELATIVE PERCENT (BEAKER) (test 80 % hmok=457) LYMPHOCYTES RELATIVE PERCENT (BEAKER) (test 8 % hebc=942) MONOCYTES RELATIVE PERCENT (BEAKER) (test 10 % xidu=730) EOSINOPHILS RELATIVE PERCENT (BEAKER) (test 0 % kxhl=310) BASOPHILS RELATIVE PERCENT (BEAKER) (test 0 % hjop=775) NEUTROPHILS ABSOLUTE COUNT (BEAKER) (test 13.90 K/ L 1.56-6.13 rfrd=324) LYMPHOCYTES ABSOLUTE COUNT (BEAKER) (test 1.38 K/ L 1.18-3.74 npjl=735) MONOCYTES ABSOLUTE COUNT (BEAKER) (test 1.69 K/ L 0.24-0.36 icuo=585) EOSINOPHILS ABSOLUTE COUNT (BEAKER) (test 0.00 K/ L 0.04-0.36 lzci=443) BASOPHILS ABSOLUTE COUNT (BEAKER) (test 0.02 K/ L 0.01-0.08 cbvr=715) IMMATURE GRANULOCYTES-RELATIVE PERCENT (BEAKER) 2 % 0-1 (test hupi=6937) BASIC METABOLIC [id number] 09:02:00 Test Item Value Reference Range Comments SODIUM (BEAKER) (test 139 meq/L 136-145 jlcj=684) POTASSIUM (BEAKER) (test 5.4 meq/L 3.5-5.1 eaxa=301) CHLORIDE (BEAKER) (test 114 meq/L 98-107 qgiv=062) CO2 (BEAKER) (test 16 meq/L 22-29 jnqh=759) BLOOD UREA NITROGEN 33 mg/dL 7-21 (BEAKER) (test rysv=895) CREATININE (BEAKER) (test 1.91 mg/dL 0.57-1.25 jvus=991) GLUCOSE RANDOM (BEAKER) 177 mg/dL 70-105 (test xggo=969) CALCIUM (BEAKER) (test 8.5 mg/dL 8.4-10.2 euhr=901) EGFR (BEAKER) (test 27 mL/min/1.73 sq m ESTIMATED GFR IS NOT ewhi=1467) ACCURATE CREATININE CLEARANCE IN PREDICTING GLOMERULAR FILTRATION RATE. ESTIMATED GFR IS NOT APPLICABLE FOR DIALYSIS PATIENTS. [id number] 08:32:00 Test Item Value Reference Range Comments PARTIAL THROMBOPLASTIN TIME (BEAKER) (test 27.6 seconds 22.5-36.0 ntap=053) [id number] 08:32:00 Test Item Value Reference Range Comments FIBRINOGEN LEVEL (BEAKER) (test jcef=746) 282 mg/dl 225-434 PROTHROMBIN [id number] 08:31:00 Test Item Value Reference Range Comments PROTIME (BEAKER) (test grib=930) 14.7 seconds 11.7-14.7 INR (BEAKER) (test vups=733) 1.2 <=5.9 RECOMMENDED COUMADIN/WARFARIN INR THERAPY RANGESSTANDARD DOSE: 2.0 - 3.0 Includes: PROPHYLAXIS forvenous thrombosis, systemic embolization; TREATMENT for venous thrombosis and/or pulmonary embolus.HIGH RISK: Target INR is 2.5-3.5 for patients with mechanical heart valves.[id number] 08:30:00 Test Item Value Reference Range Comments PHOSPHORUS (BEAKER) (test impy=701) 4.6 mg/dL 2.3-4.7 [id number] 08:30:00 Test Item Value Reference Range Comments MAGNESIUM (BEAKER) (test habz=353) 1.7 mg/dL 1.6-2.6 BLOOD GAS, [id number] 08:25:00 Test Item Value Reference Range Comments PH ARTERIAL (BEAKER) (test wlge=562) 7.19 7.35-7.45 PCO2 ARTERIAL (BEAKER) (test yhag=329) 56 mmHg 35-45 PO2 ARTERIAL (BEAKER) (test qdfo=494) 63 mmHg 80-90 O2 SATURATION ARTERIAL (BEAKER) (test kphg=981) 85.9 % 96.0-97.0 HCO3 ARTERIAL (BEAKER) (test hyag=635) 21 mmol/L 21-29 BASE EXCESS ARTERIAL (BEAKER) (test jqfw=692) -7.2 mmol/L -2.0-3.0 PATIENT TEMPERATURE (BEAKER) (test gyjd=0412) 37.2 C FIO2 (BEAKER) (test dvxs=3521) 70.0 % GLUCOSE-STAT [id number] 08:22:00 Test Item Value Reference Range Comments GLUCOSE RANDOM (BEAKER) (test sdbg=414) 176 mg/dL 70-110 HGB/HCT (H&H) - STAT [id number] 08:22:00 Test Item Value Reference Range Comments HEMOGLOBIN (BEAKER) (test ysgg=478) 9.7 g/dL 12.0-15.0 HEMATOCRIT (BEAKER) (test xscw=397) 29.0 % 36.0-45.0 CALCIUM, [id number] 08:22:00 Test Item Value Reference Range Comments CALCIUM IONIZED (BEAKER) (test hphs=189) 1.24 mmol/L 1.12-1.27 PH, BLOOD (BEAKER) (test bxcu=8624) 7.19 POTASSIUM-STAT [id number] 08:21:00 Test Item Value Reference Range Comments POTASSIUM (BEAKER) (test phmm=880) 5.2 meq/L 3.6-5.5 RAD, CHEST, 1 VIEW, NON [id number] 07:28:00Reason for exam:->s/p TEVAR with linesShould this [...] [place] Verified Date/Time: 07/13/2017 07:28:03 Reading Location: [address] Transitional Reading Room POCT- GLUCOSE [id number] 06:19:00 Test Item Value Reference Range Comments POC-GLUCOSE METER (BEAKER) 111 mg/dL 70-110 TESTED AT [address] (test itjd=4393) [facility] [address] BLOOD GAS, [id number] 04:09:00 Test Item Value Reference Range Comments PH ARTERIAL (BEAKER) (test reql=964) 7.20 7.35-7.45 PCO2 ARTERIAL (BEAKER) (test fsor=302) 54 mmHg 35-45 PO2 ARTERIAL (BEAKER) (test nehj=026) 76 mmHg 80-90 O2 SATURATION ARTERIAL (BEAKER) (test hodr=985) 92.2 % 96.0-97.0 HCO3 ARTERIAL (BEAKER) (test hwaf=921) 21 mmol/L 21-29 BASE EXCESS ARTERIAL (BEAKER) (test wgxn=858) -7.3 mmol/L -2.0-3.0 PATIENT TEMPERATURE (BEAKER) (test zpfb=0811) 36.8 C FIO2 (BEAKER) (test mvxx=3343) 60.0 % Daily ABG with morning labs while patient is intubated.POCT-GLUCOSE [id number] 04:03:00 Test Item Value Reference Range Comments POC-GLUCOSE METER (BEAKER) 133 mg/dL 70-110 TESTED AT [address] (test ngjj=1681) [facility] [address] POCT-GLUCOSE [id number] 04:03:00 Test Item Value Reference Range Comments POC-GLUCOSE METER (BEAKER) 160 mg/dL 70-110 TESTED AT [address] (test xogk=7269) [facility] [address] POCT-GLUCOSE [id number] 21:12:00 Test Item Value Reference Range Comments POC-GLUCOSE METER (BEAKER) 211 mg/dL 70-110 TESTED AT [address] (test scay=8301) [facility] [address] POCT-GLUCOSE [id number] 21:12:00 Test Item Value Reference Range Comments POC-GLUCOSE METER (BEAKER) 247 mg/dL 70-110 TESTED AT [address] (test zwns=6186) [facility] [address] GLUCOSE-STAT [id number] 18:39:00 Test Item Value Reference Range Comments GLUCOSE RANDOM (BEAKER) (test hwcv=063) 194 mg/dL 70-110 HGB/HCT (H&H) - STAT [id number] 18:39:00 Test Item Value Reference Range Comments HEMOGLOBIN (BEAKER) (test luio=122) 10.0 g/dL 12.0-15.0 HEMATOCRIT (BEAKER) (test aglr=164) 29.0 % 36.0-45.0 PLATELET AGGREGATION: FUNCTION [id number] 17:10:00 Test Item Value Reference Range Comments WEAK ADP RESULT(BEAKER) (test 70 % 60-91 bfdz=6593) PLATELET FUNCTION SCREEN 60-100% indicates normal INTERP (BEAKER) (test platelet function voqf=2229) [id number] (BEAKER) Romel Hamilton MD (electronic (test idrc=9110) signature) PLATELET COUNT AGG (BEAKER) 231 K/CU MM 150-450 (test ylmm=8160) BLOOD GAS, [id number] 14:20:00 Test Item Value Reference Range Comments PH ARTERIAL (BEAKER) (test qarq=276) 7.25 7.35-7.45 PCO2 ARTERIAL (BEAKER) (test cgpp=964) 55 mmHg 35-45 PO2 ARTERIAL (BEAKER) (test tuhz=139) 108 mmHg 80-90 O2 SATURATION ARTERIAL (BEAKER) (test ntqv=137) 97.2 % 96.0-97.0 HCO3 ARTERIAL (BEAKER) (test ttas=468) 24 mmol/L 21-29 BASE EXCESS ARTERIAL (BEAKER) (test lqok=810) -4.1 mmol/L -2.0-3.0 PATIENT TEMPERATURE (BEAKER) (test ggov=4762) 36.3 C FIO2 (BEAKER) (test azma=2035) 60.0 % GLUCOSE-STAT [id number] 14:20:00 Test Item Value Reference Range Comments GLUCOSE RANDOM (BEAKER) (test wajb=794) 257 mg/dL 70-110 HGB/HCT (H&H) - STAT [id number] 14:20:00 Test Item Value Reference Range Comments HEMOGLOBIN (BEAKER) (test lyfo=975) 9.5 g/dL 12.0-15.0 HEMATOCRIT (BEAKER) (test ixzw=120) 28.0 % 36.0-45.0 SODIUM NA-STAT [id number] 14:19:00 Test Item Value Reference Range Comments SODIUM (BEAKER) (test idal=751) 135 meq/L 135-148 POTASSIUM-STAT [id number] 14:19:00 Test Item Value Reference Range Comments POTASSIUM (BEAKER) (test fgrj=329) 4.7 meq/L 3.6-5.5 [id number] 12:29:00 Test Item Value Reference Range Comments PHOSPHORUS (BEAKER) (test zmib=876) 2.5 mg/dL 2.3-4.7 [id number] 12:29:00 Test Item Value Reference Range Comments MAGNESIUM (BEAKER) (test eiio=359) 1.9 mg/dL 1.6-2.6 BASIC METABOLIC [id number] 12:29:00 Test Item Value Reference Range Comments SODIUM (BEAKER) (test 140 meq/L 136-145 jskq=073) POTASSIUM (BEAKER) (test 4.6 meq/L 3.5-5.1 lkub=513) CHLORIDE (BEAKER) (test 110 meq/L 98-107 bdrw=921) CO2 (BEAKER) (test 22 meq/L 22-29 hwfu=085) BLOOD UREA NITROGEN 26 mg/dL 7-21 (BEAKER) (test hecd=408) CREATININE (BEAKER) (test 1.22 mg/dL 0.57-1.25 pmvz=122) GLUCOSE RANDOM (BEAKER) 207 mg/dL 70-105 (test laib=745) CALCIUM (BEAKER) (test 9.1 mg/dL 8.4-10.2 chxn=647) EGFR (BEAKER) (test 45 mL/min/1.73 sq m ESTIMATED GFR IS NOT lkrc=1384) ACCURATE CREATININE CLEARANCE IN PREDICTING GLOMERULAR FILTRATION RATE. ESTIMATED GFR IS NOT APPLICABLE FOR DIALYSIS PATIENTS. [id number] 11:59:00 Test Item Value Reference Range Comments PARTIAL THROMBOPLASTIN TIME (BEAKER) (test 28.0 seconds 22.5-36.0 xqdi=640) PROTHROMBIN TIME/[id number] 11:58:00 Test Item Value Reference Range Comments PROTIME (BEAKER) (test beci=903) 14.9 seconds 11.7-14.7 INR (BEAKER) (test pxqv=429) 1.2 <=5.9 RECOMMENDED COUMADIN/WARFARIN INR THERAPY RANGESSTANDARD DOSE: 2.0 - 3.0 Includes: PROPHYLAXIS forvenous thrombosis, systemic embolization; TREATMENT for venous thrombosis and/or pulmonary embolus.HIGH RISK: Target INR is 2.5-3.5 for patients with mechanical heart valves.CBC W/PLT COUNT & AUTO [id number] 11:42:00 Test Item Value Reference Range Comments WHITE BLOOD CELL COUNT (BEAKER) (test mgfs=929) 8.3 K/ L 3.5-10.5 RED BLOOD CELL COUNT (BEAKER) (test hjtu=835) 3.51 M/ L 3.93-5.22 HEMOGLOBIN (BEAKER) (test meuk=495) 10.4 GM/DL 11.2-15.7 HEMATOCRIT (BEAKER) (test ijaz=896) 34.1 % 34.1-44.9 MEAN CORPUSCULAR VOLUME (BEAKER) (test cqiv=760) 97.2 fL 79.4-94.8 MEAN CORPUSCULAR HEMOGLOBIN (BEAKER) (test 29.6 pg 25.6-32.2 vlwx=008) MEAN CORPUSCULAR HEMOGLOBIN CONC (BEAKER) (test 30.5 GM/DL 32.2-35.5 qdsu=095) RED CELL DISTRIBUTION WIDTH (BEAKER) (test 14.8 % 11.7-14.4 sxgq=133) PLATELET COUNT (BEAKER) (test vkcm=610) 232 K/CU MM 150-450 MEAN PLATELET VOLUME (BEAKER) (test rxux=805) 11.4 fL 9.4-12.3 NUCLEATED RED BLOOD CELLS (BEAKER) (test 0 /100 WBC 0-0 xcai=088) NEUTROPHILS RELATIVE PERCENT (BEAKER) (test 75 % tnhp=918) LYMPHOCYTES RELATIVE PERCENT (BEAKER) (test 16 % bbrs=459) MONOCYTES RELATIVE PERCENT (BEAKER) (test 6 % aspd=625) EOSINOPHILS RELATIVE PERCENT (BEAKER) (test 1 % esdp=941) BASOPHILS RELATIVE PERCENT (BEAKER) (test 0 % jpuk=232) NEUTROPHILS ABSOLUTE COUNT (BEAKER) (test 6.26 K/ L 1.56-6.13 xopv=221) LYMPHOCYTES ABSOLUTE COUNT (BEAKER) (test 1.37 K/ L 1.18-3.74 zsxa=201) MONOCYTES ABSOLUTE COUNT (BEAKER) (test 0.47 K/ L 0.24-0.36 eykf=664) EOSINOPHILS ABSOLUTE COUNT (BEAKER) (test 0.09 K/ L 0.04-0.36 gypr=594) BASOPHILS ABSOLUTE COUNT (BEAKER) (test 0.02 K/ L 0.01-0.08 fvkb=965) IMMATURE GRANULOCYTES-RELATIVE PERCENT (BEAKER) 1 % 0-1 (test tlnf=4633) RAD, CHEST, 1 VIEW, NON [id number] 11:40:00Reason for exam:->Post- opShould this be performed [...] [place] Verified Date/Time: 07/12/2017 11:40:25 Reading Location: [facility] Radiology Reading Room CALCIUM, [id number] 11:35:00 Test Item Value Reference Range Comments CALCIUM IONIZED (BEAKER) (test uizo=178) 1.28 mmol/L 1.12-1.27 PH, BLOOD (BEAKER) (test qcrx=3158) 7.30 BLOOD GAS, [id number] 11:34:00 Test Item Value Reference Range Comments PH ARTERIAL (BEAKER) (test ejvn=857) 7.35 7.35-7.45 PCO2 ARTERIAL (BEAKER) (test xjwb=569) 48 mmHg 35-45 PO2 ARTERIAL (BEAKER) (test vadm=155) 54 mmHg 80-90 O2 SATURATION ARTERIAL (BEAKER) (test vked=933) 91.1 % 96.0-97.0 HCO3 ARTERIAL (BEAKER) (test gwvt=434) 27 mmol/L 21-29 BASE EXCESS ARTERIAL (BEAKER) (test jqtl=795) -0.5 mmol/L -2.0-3.0 PATIENT TEMPERATURE (BEAKER) (test ciqu=0968) 33.9 C FIO2 (BEAKER) (test xarx=8941) 60.0 % GLUCOSE-STAT [id number] 11:34:00 Test Item Value Reference Range Comments GLUCOSE RANDOM (BEAKER) (test heqs=847) 203 mg/dL 70-110 HGB/HCT (H&H) - STAT [id number] 11:34:00 Test Item Value Reference Range Comments HEMOGLOBIN (BEAKER) (test vetm=041) 11.1 g/dL 12.0-15.0 HEMATOCRIT (BEAKER) (test khnu=940) 33.0 % 36.0-45.0 SODIUM NA-STAT [id number] 11:33:00 Test Item Value Reference Range Comments SODIUM (BEAKER) (test fpen=096) 137 meq/L 135-148 POTASSIUM-STAT [id number] 11:33:00 Test Item Value Reference Range Comments POTASSIUM (BEAKER) (test nypk=038) 4.4 meq/L 3.6-5.5 [id number] 10:07:00 Test Item Value Reference Range Comments ACTIVATED CLOTTING TIME 164 sec TESTED AT [facility] [address] (BEAKER) (test jmal=993) [place] [address] [id number] 10:07:00 Test Item Value Reference Range Comments ACTIVATED CLOTTING TIME 345 sec TESTED AT [place] [address] [address] (BEAKER) (test xtrg=608) [place] [address] [id number] 10:06:00 Test Item Value Reference Range Comments ACTIVATED CLOTTING TIME 230 sec TESTED AT [place] [address] [address] (BEAKER) (test txdl=811) [place] [address] GLUCOSE-STAT [id number] 08:53:00 Test Item Value Reference Range Comments GLUCOSE RANDOM (BEAKER) (test wojq=284) 99 mg/dL 70-110 SODIUM NA-STAT [id number] 08:53:00 Test Item Value Reference Range Comments SODIUM (BEAKER) (test kcbt=135) 140 meq/L 135-148 POTASSIUM-STAT [id number] 08:53:00 Test Item Value Reference Range Comments POTASSIUM (BEAKER) (test amzq=599) 4.7 meq/L 3.6-5.5 HGB/HCT (H&H) - STAT [id number] 08:53:00 Test Item Value Reference Range Comments HEMOGLOBIN (BEAKER) (test fsma=640) 12.1 g/dL 12.0-15.0 HEMATOCRIT (BEAKER) (test mins=549) 36.0 % 36.0-45.0 BLOOD GAS, [id number] 08:53:00 Test Item Value Reference Range Comments PH ARTERIAL (BEAKER) (test cclp=847) 7.36 7.35-7.45 PCO2 ARTERIAL (BEAKER) (test nxhb=530) 51 mmHg 35-45 PO2 ARTERIAL (BEAKER) (test hwck=144) 110 mmHg 80-90 O2 SATURATION ARTERIAL (BEAKER) (test aflj=205) 98.0 % 96.0-97.0 HCO3 ARTERIAL (BEAKER) (test kgch=839) 29 mmol/L 21-29 BASE EXCESS ARTERIAL (BEAKER) (test lsfj=601) 1.9 mmol/L -2.0-3.0 PATIENT TEMPERATURE (BEAKER) (test pmlw=9569) 35.5 C FIO2 (BEAKER) (test xqrm=2366) 70.0 % CALCIUM, [id number] 08:53:00 Test Item Value Reference Range Comments CALCIUM IONIZED (BEAKER) (test zljd=227) 1.20 mmol/L 1.12-1.27 PH, BLOOD (BEAKER) (test rdqf=8082) 7.34 [id number] 05:20:00 Test Item Value Reference Range Comments PHOSPHORUS (BEAKER) (test irpu=746) 2.7 mg/dL 2.3-4.7 [id number] 05:20:00 Test Item Value Reference Range Comments MAGNESIUM (BEAKER) (test hvvl=910) 2.2 mg/dL 1.6-2.6 BASIC METABOLIC [id number] 05:20:00 Test Item Value Reference Range Comments SODIUM (BEAKER) (test 140 meq/L 136-145 tntc=896) POTASSIUM (BEAKER) (test 4.9 meq/L 3.5-5.1 rotq=150) CHLORIDE (BEAKER) (test 103 meq/L 98-107 jpdb=419) CO2 (BEAKER) (test 29 meq/L 22-29 twfl=552) BLOOD UREA NITROGEN 25 mg/dL 7-21 (BEAKER) (test ttef=014) CREATININE (BEAKER) (test 1.32 mg/dL 0.57-1.25 whuk=363) GLUCOSE RANDOM (BEAKER) 155 mg/dL 70-105 (test hkre=043) CALCIUM (BEAKER) (test 9.7 mg/dL 8.4-10.2 rsld=091) EGFR (BEAKER) (test 41 mL/min/1.73 sq m ESTIMATED GFR IS NOT qkra=3987) ACCURATE CREATININE CLEARANCE IN PREDICTING GLOMERULAR FILTRATION RATE. ESTIMATED GFR IS NOT APPLICABLE FOR DIALYSIS PATIENTS. CALCIUM, [id number] 04:45:00 Test Item Value Reference Range Comments CALCIUM IONIZED (BEAKER) (test zncy=713) 1.24 mmol/L 1.12-1.27 PH, BLOOD (BEAKER) (test asix=0593) 7.27 [id number] 04:42:00 Test Item Value Reference Range Comments PROTIME (BEAKER) (test llcx=762) 13.0 seconds 11.7-14.7 INR (BEAKER) (test pmdz=422) 1.0 <=5.9 PARTIAL THROMBOPLASTIN TIME (BEAKER) (test 29.2 seconds 22.5-36.0 obne=155) RECOMMENDED COUMADIN/WARFARIN INR THERAPY RANGESSTANDARD DOSE: 2.0 - 3.0 Includes: PROPHYLAXIS forvenous thrombosis, systemic embolization; TREATMENT for venous thrombosis and/or pulmonary embolus.HIGH RISK: Target INR is 2.5-3.5 for patients with mechanical heart valves.PROTHROMBIN [id number] 04:41: 00 Test Item Value Reference Range Comments PROTIME (BEAKER) (test yjpu=438) 13.0 seconds 11.7-14.7 INR (BEAKER) (test gxkl=052) 1.0 <=5.9 RECOMMENDED COUMADIN/WARFARIN INR THERAPY RANGESSTANDARD DOSE: 2.0 - 3.0 Includes: PROPHYLAXIS forvenous thrombosis, systemic embolization; TREATMENT for venous thrombosis and/or pulmonary embolus.HIGH RISK: Target INR is 2.5-3.5 for patients with mechanical heart valves.RAD, CHEST, 1 VIEW, NON [id number] 04:20:00Reason for exam:->pneumonia, copdShould this be performed at the bedside?->YesFINAL REPORT RAD, CHEST, 1 VIEW, NON DEPT INDICATION: pneumonia, copd COMPARISON: Prior day's exam FINDINGS: Portable frontal view of the chest. IMPRESSION: Support Lines: None. Lungs and pleura: No focal airspace disease, effusion or pneumothorax.Heart and mediastinum: Stable contours.Additional findings: None. Signed: JR Guzman Robert [place] Verified Date/Time: 07/12/2017 04:20:18 Reading Location: [address] Reading Room T [facility] (HEMOGRAM ONLY)2017-07-12 04:14:00 Test Item Value Reference Range Comments WHITE BLOOD CELL COUNT (BEAKER) (test goko=362) 5.5 K/ L 3.5-10.5 RED BLOOD CELL COUNT (BEAKER) (test pcvn=157) 4.28 M/ L 3.93-5.22 HEMOGLOBIN (BEAKER) (test wucg=039) 12.6 GM/DL 11.2-15.7 HEMATOCRIT (BEAKER) (test ytfo=846) 41.2 % 34.1-44.9 MEAN CORPUSCULAR VOLUME (BEAKER) (test zpue=176) 96.3 fL 79.4-94.8 MEAN CORPUSCULAR HEMOGLOBIN (BEAKER) (test 29.4 pg 25.6-32.2 zegk=944) MEAN CORPUSCULAR HEMOGLOBIN CONC (BEAKER) (test 30.6 GM/DL 32.2-35.5 chyv=168) RED CELL DISTRIBUTION WIDTH (BEAKER) (test 14.6 % 11.7-14.4 mkkl=637) PLATELET COUNT (BEAKER) (test lubn=583) 210 K/CU MM 150-450 MEAN PLATELET VOLUME (BEAKER) (test yawq=680) 11.2 fL 9.4-12.3 NUCLEATED RED BLOOD CELLS (BEAKER) (test 0 /100 WBC 0-0 hayx=707) POCT-GLUCOSE [id number] 22:43:00 Test Item Value Reference Range Comments POC-GLUCOSE METER (BEAKER) 125 mg/dL 70-110 TESTED AT [address] (test zlux=9634) [place] [id number] POCT-GLUCOSE [id number] 18:20:00 Test Item Value Reference Range Comments POC-GLUCOSE METER (BEAKER) 118 mg/dL 70-110 TESTED AT [address] (test qugo=6574) [place] [id number] POCT-GLUCOSE [id number] 13:23:00 Test Item Value Reference Range Comments POC-GLUCOSE METER (BEAKER) 143 mg/dL 70-110 TESTED AT [address] (test rzdw=2880) [place] [id number] PLATELET AGGREGATION: FUNCTION [id number] 09:18:00 Test Item Value Reference Range Comments WEAK ADP RESULT(BEAKER) (test 52 % 60-91 byjq=0916) PLATELET FUNCTION SCREEN 50-59% indicates mild platelet INTERP (BEAKER) (test dysfunction ytge=5078) [id number] Romel Hamilton MD (electronic (BEAKER) (test ylzd=4783) signature) PLATELET COUNT AGG (BEAKER) 197 K/CU MM 150-450 (test nifp=8302) RAD, CHEST, 1 VIEW, NON [id number] 07:41:00Reason for exam:->pneumonia, copdShould this be performed at the bedside?->YesFINAL REPORT CLINICAL HISTORY: pneumonia, copd TECHNIQUE: 1 view of the chest. COMPARISON: 07/10/2017 IMPRESSION: Prominent bilateral interstitial lung opacities are unchanged. There is no increasing pleural fluid. The cardiomediastinal silhouette is magnified by technique. Signed: Trell Guillen Verified Date/Time: 07/11/2017 07:41:01 Reading Location: [facility] Radiology Reading Room [id number] 05:55:00 Test Item Value Reference Range Comments PHOSPHORUS (BEAKER) (test iikq=426) 2.8 mg/dL 2.3-4.7 [id number] 05:55:00 Test Item Value Reference Range Comments MAGNESIUM (BEAKER) (test lupi=896) 2.1 mg/dL 1.6-2.6 BASIC METABOLIC [id number] 05:55:00 Test Item Value Reference Range Comments SODIUM (BEAKER) (test 141 meq/L 136-145 dpfy=199) POTASSIUM (BEAKER) (test 4.3 meq/L 3.5-5.1 znjb=625) CHLORIDE (BEAKER) (test 105 meq/L 98-107 gfou=731) CO2 (BEAKER) (test 28 meq/L 22-29 xqzh=252) BLOOD UREA NITROGEN 27 mg/dL 7-21 (BEAKER) (test qmfu=113) CREATININE (BEAKER) (test 1.37 mg/dL 0.57-1.25 mzvm=386) GLUCOSE RANDOM (BEAKER) 150 mg/dL 70-105 (test pqsi=957) CALCIUM (BEAKER) (test 9.4 mg/dL 8.4-10.2 kfvc=102) EGFR (BEAKER) (test 39 mL/min/1.73 sq m ESTIMATED GFR IS NOT jvni=2098) ACCURATE CREATININE CLEARANCE IN PREDICTING GLOMERULAR FILTRATION RATE. ESTIMATED GFR IS NOT APPLICABLE FOR DIALYSIS PATIENTS. PT/[id number] 05:37:00 Test Item Value Reference Range Comments PROTIME (BEAKER) (test wazh=294) 15.1 seconds 11.7-14.7 INR (BEAKER) (test bzld=449) 1.2 <=5.9 PARTIAL THROMBOPLASTIN TIME (BEAKER) (test 31.2 seconds 22.5-36.0 qrgq=739) RECOMMENDED COUMADIN/WARFARIN INR THERAPY RANGESSTANDARD DOSE: 2.0 - 3.0 Includes: PROPHYLAXIS forvenous thrombosis, systemic embolization; TREATMENT for venous thrombosis and/or pulmonary embolus.HIGH RISK: Target INR is 2.5-3.5 for patients with mechanical heart valves.PROTHROMBIN TIME/[id number] 05:36: 00 Test Item Value Reference Range Comments PROTIME (BEAKER) (test rcto=134) 15.1 seconds 11.7-14.7 INR (BEAKER) (test ndyv=871) 1.2 <=5.9 RECOMMENDED COUMADIN/WARFARIN INR THERAPY RANGESSTANDARD DOSE: 2.0 - 3.0 Includes: PROPHYLAXIS forvenous thrombosis, systemic embolization; TREATMENT for venous thrombosis and/or pulmonary embolus.HIGH RISK: Target INR is 2.5-3.5 for patients with mechanical heart valves.CBC (HEMOGRAM ONLY)2017-07-11 05:35:00 Test Item Value Reference Range Comments WHITE BLOOD CELL COUNT (BEAKER) (test nlkg=277) 5.1 K/ L 3.5-10.5 RED BLOOD CELL COUNT (BEAKER) (test knvu=741) 4.17 M/ L 3.93-5.22 HEMOGLOBIN (BEAKER) (test kahz=022) 12.2 GM/DL 11.2-15.7 HEMATOCRIT (BEAKER) (test kebv=207) 40.5 % 34.1-44.9 MEAN CORPUSCULAR VOLUME (BEAKER) (test srfn=560) 97.1 fL 79.4-94.8 MEAN CORPUSCULAR HEMOGLOBIN (BEAKER) (test 29.3 pg 25.6-32.2 dtbx=997) MEAN CORPUSCULAR HEMOGLOBIN CONC (BEAKER) (test 30.1 GM/DL 32.2-35.5 bfsl=947) RED CELL DISTRIBUTION WIDTH (BEAKER) (test 14.7 % 11.7-14.4 nohf=957) PLATELET COUNT (BEAKER) (test iuvo=525) 185 K/CU MM 150-450 MEAN PLATELET VOLUME (BEAKER) (test hppn=078) 11.4 fL 9.4-12.3 NUCLEATED RED BLOOD CELLS (BEAKER) (test 0 /100 WBC 0-0 qcea=764) CALCIUM, [id number] 05:35:00 Test Item Value Reference Range Comments CALCIUM IONIZED (BEAKER) (test hdee=142) 1.29 mmol/L 1.12-1.27 PH, BLOOD (BEAKER) (test ddtj=5567) 7.29 POCT-GLUCOSE [id number] 01:32:00 Test Item Value Reference Range Comments POC-GLUCOSE METER (BEAKER) 166 mg/dL 70-110 TESTED AT [address] (test btdz=7817) [place] [address] POCT-GLUCOSE [id number] 22:19:00 Test Item Value Reference Range Comments POC-GLUCOSE METER (BEAKER) 138 mg/dL 70-110 TESTED AT [address] (test nmxp=4210) [place] [address] POCT-GLUCOSE [id number] 18:47:00 Test Item Value Reference Range Comments POC-GLUCOSE METER (BEAKER) 93 mg/dL 70-110 TESTED AT [address] (test sezw=2094) [place] [address] POCT-GLUCOSE [id number] 18:39:00 Test Item Value Reference Range Comments POC-GLUCOSE METER (BEAKER) 95 mg/dL 70-110 TESTED AT [address] (test rcyx=4095) [place] [id number] CTA, CHEST, ABDOMEN - PELVIS, FOR [id number] 17:03:00Reason for exam:- >aortic ulcersAddendum BeginsREPORT STATUS:A Addendum : I agree with the previously described non vascular findings. Signed: García Hawkins MDReport Verified Date/Time: 07/10/2017 17:03:39 Reading Location: [place] [id number] Angio Body Reading RoomAddendum EndsFINAL REPORT CT [...] that is widely patent and the inner cwyw-wg-uvaw diameteris at least 7 to 8 mm. [...] An addendum will be dictated by the Road [employer] Truck Driver Radiologist regarding the nonvascular findings. Signed: Willis [place] Verified Date/Time: 07/10/2017 11:12:02 Reading Location: [place] [id number] MRI URINALYSIS W/ REFLEX URINE [id number] 16:27:00 Test Item Value Reference Range Comments COLOR (BEAKER) (test fmra=419) Yellow CLARITY (BEAKER) (test yluw=339) Clear SPECIFIC GRAVITY UA (BEAKER) (test wfmk=802) 1.049 1.001-1.035 PH UA (BEAKER) (test trtp=446) 5.5 5.0-8.0 PROTEIN UA (BEAKER) (test ikxt=983) 10 mg/dL Negative GLUCOSE UA (BEAKER) (test fjxt=531) Negative Negative KETONES UA (BEAKER) (test xmgk=948) Negative Negative BILIRUBIN UA (BEAKER) (test ixjn=292) Negative Negative BLOOD UA (BEAKER) (test xbgc=654) Negative Negative NITRITE UA (BEAKER) (test cyjo=151) Negative Negative LEUKOCYTE ESTERASE UA (BEAKER) (test dghy=114) Negative Negative UROBILINOGEN UA (BEAKER) (test tmjn=313) 2.0 mg/dL 0.2-1.0 RBC UA (BEAKER) (test deku=497) < /HPF WBC UA (BEAKER) (test vvml=015) < /HPF SQUAMOUS EPITHELIAL (BEAKER) (test qkrl=980) 1 /HPF SOURCE(BEAKER) (test huus=7104) [id number] 13:13:00 Test Item Value Reference Range Comments COL/EPI CLOSURE TIME (BEAKER) (test glad=7624) > Seconds 78-191 COL/ADP CLOSURE TIME (BEAKER) (test dmci=9778) 76 Seconds 43-122 PLATELET COUNT AGG (BEAKER) (test gqip=8389) 188 K/CU MM 150-450 POCT-GLUCOSE [id number] 12:41:00 Test Item Value Reference Range Comments POC-GLUCOSE METER (BEAKER) 70 mg/dL 70-110 TESTED AT [address] (test zfrb=6296) [place] [address] POCT-GLUCOSE [id number] 10:45:00 Test Item Value Reference Range Comments POC-GLUCOSE METER (BEAKER) 87 mg/dL 70-110 TESTED AT [address] (test yqlr=5328) [place] [address] TSH/FREE T4 IF [id number] 09:07:00 Test Item Value Reference Range Comments THYROID STIMULATING HORMONE (BEAKER) (test 1.07 uIU/mL 0.35-4.94 mebh=418) B-TYPE NATRIURETIC FACTOR (BNP)2017-07-10 09:03:00 Test Item Value Reference Range Comments B-TYPE NATRIURETIC PEPTIDE (BEAKER) (test qzad=917) 86 pg/mL 0-100 B-TYPE NATRIURETIC FACTOR (BNP)2017-07-10 05:25:00 Test Item Value Reference Range Comments B-TYPE NATRIURETIC PEPTIDE (BEAKER) (test unfe=500) 76 pg/mL 0-100 [id number] 02:31:00 Test Item Value Reference Range Comments PARTIAL THROMBOPLASTIN TIME (BEAKER) (test 33.4 seconds 22.5-36.0 hgna=868) [id number] 02:31:00 Test Item Value Reference Range Comments PHOSPHORUS (BEAKER) (test dsms=691) 4.2 mg/dL 2.3-4.7 [id number] 02:31:00 Test Item Value Reference Range Comments MAGNESIUM (BEAKER) (test ijkn=612) 1.9 mg/dL 1.6-2.6 BASIC METABOLIC [id number] 02:31:00 Test Item Value Reference Range Comments SODIUM (BEAKER) (test 143 meq/L 136-145 sxvf=187) POTASSIUM (BEAKER) (test 4.2 meq/L 3.5-5.1 aknu=675) CHLORIDE (BEAKER) (test 105 meq/L 98-107 gtqq=644) CO2 (BEAKER) (test 29 meq/L 22-29 qnql=314) BLOOD UREA NITROGEN 23 mg/dL 7-21 (BEAKER) (test obia=442) CREATININE (BEAKER) (test 1.47 mg/dL 0.57-1.25 ojab=043) GLUCOSE RANDOM (BEAKER) 89 mg/dL 70-105 (test nowq=482) CALCIUM (BEAKER) (test 9.0 mg/dL 8.4-10.2 xbxb=032) EGFR (BEAKER) (test 36 mL/min/1.73 sq m ESTIMATED GFR IS NOT zgcf=9005) ACCURATE CREATININE CLEARANCE IN PREDICTING GLOMERULAR FILTRATION RATE. ESTIMATED GFR IS NOT APPLICABLE FOR DIALYSIS PATIENTS. PROTHROMBIN TIME/[id number] 02:30:00 Test Item Value Reference Range Comments PROTIME (BEAKER) (test hlwl=918) 13.7 seconds 11.7-14.7 INR (BEAKER) (test htzn=227) 1.1 <=5.9 RECOMMENDED COUMADIN/WARFARIN INR THERAPY RANGESSTANDARD DOSE: 2.0 - 3.0 Includes: PROPHYLAXIS forvenous thrombosis, systemic embolization; TREATMENT for venous thrombosis and/or pulmonary embolus.HIGH RISK: Target INR is 2.5-3.5 for patients with mechanical heart valves.CBC W/PLT COUNT & AUTO [id number] 02:17:00 Test Item Value Reference Range Comments WHITE BLOOD CELL COUNT (BEAKER) (test jife=451) 6.5 K/ L 3.5-10.5 RED BLOOD CELL COUNT (BEAKER) (test panw=128) 4.31 M/ L 3.93-5.22 HEMOGLOBIN (BEAKER) (test hvnf=752) 12.7 GM/DL 11.2-15.7 HEMATOCRIT (BEAKER) (test ggfq=160) 41.7 % 34.1-44.9 MEAN CORPUSCULAR VOLUME (BEAKER) (test bczi=132) 96.8 fL 79.4-94.8 MEAN CORPUSCULAR HEMOGLOBIN (BEAKER) (test 29.5 pg 25.6-32.2 amxw=448) MEAN CORPUSCULAR HEMOGLOBIN CONC (BEAKER) (test 30.5 GM/DL 32.2-35.5 kaln=040) RED CELL DISTRIBUTION WIDTH (BEAKER) (test 14.6 % 11.7-14.4 dsvy=453) PLATELET COUNT (BEAKER) (test xfys=818) 182 K/CU MM 150-450 MEAN PLATELET VOLUME (BEAKER) (test hlqx=934) 11.0 fL 9.4-12.3 NUCLEATED RED BLOOD CELLS (BEAKER) (test 0 /100 WBC 0-0 pohh=927) NEUTROPHILS RELATIVE PERCENT (BEAKER) (test 73 % xyly=923) LYMPHOCYTES RELATIVE PERCENT (BEAKER) (test 16 % ikni=957) MONOCYTES RELATIVE PERCENT (BEAKER) (test 10 % mkvf=661) EOSINOPHILS RELATIVE PERCENT (BEAKER) (test 1 % nqft=583) BASOPHILS RELATIVE PERCENT (BEAKER) (test 0 % suxe=401) NEUTROPHILS ABSOLUTE COUNT (BEAKER) (test 4.78 K/ L 1.56-6.13 bxia=813) LYMPHOCYTES ABSOLUTE COUNT (BEAKER) (test 1.02 K/ L 1.18-3.74 anzr=123) MONOCYTES ABSOLUTE COUNT (BEAKER) (test 0.64 K/ L 0.24-0.36 qxtu=223) EOSINOPHILS ABSOLUTE COUNT (BEAKER) (test 0.05 K/ L 0.04-0.36 dviz=542) BASOPHILS ABSOLUTE COUNT (BEAKER) (test 0.02 K/ L 0.01-0.08 vfqc=703) IMMATURE GRANULOCYTES-RELATIVE PERCENT (BEAKER) 0 % 0-1 (test ywgz=2206) RAD, CHEST, 1 VIEW, NON [id number] 01:59:00Reason for exam:->acute O2 desat, ?COPD, ?pneumoniaShould [...] MDReport Verified Date/Time: 07/10/2017 01:59:30 Reading [address]
[2018-04-04] MEDS ORDERED: DEXAMETHASONE 10 MG/ML VIAL ONE (13:58)
[2018-04-04] MEDS ORDERED: LIDOCAINE VISCOUS 2% SOLN 15 ML UDC ONE (13:58)
[2018-04-04 14:22] LABS: Absolute Lymphocytes (CBC) 0.2 K/uL (0.7-4.9); Absolute Monocytes 0.4 K/uL (0.1-1.3); Absolute Neutrophil 3.2 K/uL (1.8-8.0); Basophils % 0.7 % (0-1.3); Eosinophils % 1.5 % (0-4.4); Hematocrit 35.1 % (36.0-45.0); Lymphocytes % 6.3 % (15.3-44.8); MCH 31.5 pg (27.0-35.0); MCV 95.6 fL (80-100); MPV 9.4 fL (7.6-11.3); Monocytes % 9.9 % (3.3-12.3); RBC Red Blood Cell Count 3.67 M/uL (3.86-4.86)
[2018-04-04 14:30] LABS: Albumin 2.7 g/dL (3.4-5.0); Bilirubin Total 0.5 mg/dL (0.2-1.0); Potassium 4.4 mmol/L (3.5-5.1); Protein, Total 6.5 g/dL (6.4-8.2)
--- NOTE | 2018-04-04 15:34 | RAD REPORT ---
EXAM DESCRIPTION: CT - Soft Tissue Neck W/Contr - 04/04/2018 3:14 pm CLINICAL HISTORY: Dysphagia, odynophagia, history of head and neck cancer with radiation therapy TECHNIQUE: During dynamic enhancement using 50 milliliters nonionic IV contrast, axial 5 millimeter thick images of the neck were obtained. All CT scans are performed using dose optimization technique as appropriate and may include automated exposure control or mA/KV adjustment according to patient size. FINDINGS: IV access was limited. Iodinated contrast is difficult to visualize within the vasculature . No globe or orbital content abnormality. Intracranial portion is grossly unremarkable for an acute process. Mastoid air cells are clear. Visualized paranasal sinuses are clear. Enlarged sella turcica present not fully assessed on this study. No nasopharyngeal mass. There is significant spray artifact from dental work along the tonsillar pill ars. Right-side tonsillar enlargement is present but not clearly different from prior imaging. No abn ormal soft palate enlargement. Circumferential supraglottic soft tissue thickening is present. This i nvolves the epiglottis. Patient has a large centimeter malignant mass at the right base of the neck. The amount of airway compromise from the supraglottic mass and right neck base mass effect has not ac utely changed. No subglottic airway compromise. No new or enlarging neck mass. IMPRESSION: Circumferential supraglottic soft tissue thickening and mass effect. The resulting narro wing of the airway is not acutely different from the March [address] study. Overall volume of supraglottic circumferential mass and right tonsillar enlargement not clearly diffe rent from March 20 comparison. Right neck base mass at 6 cm is not substantially different.
[2018-04-04] MEDS ORDERED: SODIUM CHLORIDE 0.9% 10ML INJ IV PRN (16:23)
[2018-04-04] MEDS ORDERED: ACETAMINOPHEN 650MG/RECT SUPP PR PRN (16:23)
[2018-04-04] MEDS ORDERED: ACETAMINOPHEN 500 MG TAB PO PRN (16:23)
[2018-04-04] MEDS ORDERED: ONDANSETRON 4 MG/2 ML VIAL IV PRN (16:23)
[2018-04-04] MEDS ORDERED: IPRATROPIUM BROM 0.5MG/2.5ML NEB PRN (16:23)
--- NOTE | 2018-04-04 16:23 | P.HP ---
Certification for Inpatient Patient admitted to: Inpatient With expected LOS: >2 Midnights Patient will require the following post-hospital care: None Practitioner: I am a practitioner with admitting privileges, knowledge of patient current condition, hospital course, and medical plan of care. Services: Services provided to patient in accordance with Admission requirements found in Title 42 Section 412.3 of the Code of Federal Regulations Patient History Date of Service: 04/04/18 Primary Care Provider: Dr. Bacon; Onc.-Dr. Mchugh; GI-Dr. Caro; Rad-Dr. Pineda;Card-Dr. Pak Reason for admission: Dyspnea, dysphagia History of Present Illness: 62-year-old female presented emergency room with dyspnea and dysphagia. 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 Over the past several days she has been having increasing shortness of breath and dysphagia. Patient has been getting radiation as an outpatient. Patient is currently in the process of trying to obtain a feeding tube. Patient has had poor oral intake. She has had weight loss. She reports some problems with swallowing. She was recently evaluated by GI. GI recommended cardiology and pulmonology clearance before PEG tube is placed. Her symptoms of dysphagia and dyspnea got worse today. She came to the ER for further evaluation. Patient with multiple medical problems including diabetes, hypertension, hyperlipidemia, CAD, peripheral vascular disease, hypothyroidism, though PD, tobacco abuse, and severe sleep apnea. In the ER she was evaluated. White count 3.9, hemoglobin 11.6. Sodium 141, potassium 4.4, BUN of 46, creatinine 2.2 with a GFR 23. Glucose 69. CT scan shows circumferential supraglottic tissue thickening with mass affect. Resulting in narrow airway. Patient with severe sleep apnea. Patient with increased fatigue. Due to the nature of her problems the patient was admitted for further evaluation. When I saw the patient ER, she appeared comfortable. Sister at bedside. Patient desires PEG tube. Advanced directives address in detail. Patient is DNR. Allergies morphine Allergy (Mild, Verified 02/05/18 09:36) Nausea/Vomiting ANTIHISTAMINES Allergy (Mild, Uncoded 02/05/18 09:36) Itching Home medications list reviewed: Yes Home Medications: Amlodipine [Norvasc*] 5 mg PO DAILY 08/11/17 Aspirin [Aspir-Low] 81 mg PO DAILY 08/11/17 Citalopram [Celexa*] 40 mg PO DAILY 08/11/17 Clopidogrel Bisulfate [Plavix] 75 mg PO DAILY 08/11/17 Fenofibrate 160 mg PO DAILY 08/11/17 Levothyroxine Sodium 112 mcg PO DAILY 08/11/17 Modafinil [Provigil] 200 mg PO DAILY 08/11/17 Topiramate 100 mg PO BID 08/11/17 Gabapentin 600 mg PO BID 02/05/18 Insulin NPH Human Isophane [Humulin N] 10 unit SQ BID 02/05/18 Pantoprazole [Protonix Tab] 40 mg PO DAILY 02/05/18 Pravastatin Sodium 40 mg PO DAILY 02/05/18 - Past Medical/Surgical History Diabetic: No -: Obesity -: Severe obstructive sleep apnea -: Diabetes mellitus type 2 -: Hypertension -: Hyperlipidemia -: CAD -: 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 She lives with her sister. She has 1 child. - Family History Family History: Reviewed- Non-Contributory - Social History Smoking Status: Heavy Tobacco smoker (>10 cigarettes/day) Counseled patient to stop smoking for: less than 10 minutes Smoking therapy provided: Yes Patient receptive to therapy: Yes Alcohol use: No CD- Drugs: No Caffeine use: Yes Place of Residence: Home Review of Systems General: Weakness, Malaise Eyes: Unremarkable ENT: Throat Pain, As per HPI Respiratory: Cough, Shortness of Breath, As per HPI Cardiovascular: Unremarkable Gastrointestinal: Nausea, As per HPI Genitourinary: Unremarkable Musculoskeletal: Unremarkable Integumentary: Unremarkable Neurological: Weakness, As per HPI Lymphatics: Unremarkable Physical Examination - Physical Exam General: Alert, In no apparent distress, Cooperative HEENT: Atraumatic, Normocephalic, Other (Dry mucous membranes. patient has a large mass to the right cervical lymph node region.) Neck: Supple, Other (Large cervical lymph node on the right side) Respiratory: Expiratory wheezes (Mild wheezing bilateral) Cardiovascular: Normal pulses, Regular rate/rhythm Gastrointestinal: Normal bowel sounds, Soft and benign, Non-distended, No tenderness, No masses, No rebound, No guarding Musculoskeletal: No erythema, No tenderness, No warmth Integumentary: No tenderness/swelling, No erythema, No warmth, No cyanosis Neurological: Normal speech, Normal strength at 5/5 x4 extr, Normal tone, Normal affect Other Physical/Emotional Findings: Patient dozing off due to severe sleep apnea - Studies Laboratory Data (last 24 hrs) 04/04/18 14:06: Sodium 141, Potassium 4.4, BUN 46 H, Creatinine 2.20 H, Glucose 69 L, Total Bilirubin 0.5, AST 42 H, ALT 32, Alkaline Phosphatase 43 L 04/04/18 14:06: WBC 3.9 L, Hgb 11.6 L, Hct 35.1 L, Plt Count 201 Assessment and Plan - Problems (Diagnosis) (1) Dyspnea Current Visit: Yes Status: Acute Plan: Patient with dyspnea likely from COPD and sleep apnea. Will maintain sats above 90%. Will continue with COPD medication. Will provide BiPAP as needed. Pulmonology consulted for clearance for PEG tube placement. Qualifiers: Dyspnea type: shortness of breath Qualified Code(s): R06.02 - Shortness of breath; R06.00 - Dyspnea, unspecified; R06.01 - Orthopnea (2) Dysphagia Current Visit: Yes Status: Acute Plan: Patient with dysphagia and poor intake. Patient also with pain and difficulty swallowing. Patient seen by GI as an outpatient. Will plan for PEG tube. Patient requires pulmonology and cardiology clearance. Will monitor dietary intake. Will measure dietary intake. Will try to obtain information from her development director in [place]. Order echocardiogram. (3) COPD (chronic obstructive pulmonary disease) Current Visit: Yes Status: Acute Plan: Patient with COPD. Will continue with her medication. Qualifiers: COPD type: chronic bronchitis Chronic bronchitis type: unspecified Qualified Code(s): J42 - Unspecified chronic bronchitis (4) Problems with swallowing Current Visit: Yes Status: Acute Plan: Continue as above. GI consulted. Case discussed with GI. Patient will need PEG tube. GI requests pulmonology and cardiology clearance. Will try to to obtain records from her development director up in [place]. Will order echocardiogram. (5) Malnutrition Current Visit: Yes Status: Acute Plan: Will monitor oral intake. Qualifiers: Malnutrition type: protein-calorie malnutrition Protein-calorie malnutrition severity: moderate Qualified Code(s): E44.0 - Moderate protein- calorie malnutrition (6) Chronic renal failure Current Visit: Yes Status: Acute Plan: Will consult Nephrology to further assess. Will provide IV fluids. 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 Patient seen by oncology and radiation oncology. Continue as above. (8) Metastatic disease Current Visit: Yes Status: Acute Plan: Patient with metastatic disease to the cervical lymph node. (9) Hypertension Current Visit: Yes Status: Chronic Plan: Will need to verify and restart home medication. Qualifiers: Hypertension type: essential hypertension Qualified Code(s): I10 - Essential (primary) hypertension (10) CAD (coronary artery disease) Current Visit: Yes Status: Chronic Plan: Cardiology consulted for cardiac clearance for PEG tube. Will order echocardiogram. Will hold Plavix in preparation for PEG tube. (11) PVD (peripheral vascular disease) Current Visit: Yes Status: Chronic Plan: Patient with history of stent. Will hold Plavix in preparation for PEG tube. (12) Hyperlipidemia Current Visit: Yes Status: Chronic Plan: Verify and restart home medication. (13) Hypothyroidism Current Visit: Yes Status: Chronic Plan: Verify and restart home medication Qualifiers: Hypothyroidism type: unspecified Qualified Code(s): E03.9 - Hypothyroidism , unspecified (14) Seizure disorder Current Visit: Yes Status: Chronic Plan: Verify and restart home medication (15) Diabetes mellitus Onset Date: 08/12/17 Current Visit: No Status: Chronic Plan: Continue sliding scale. Patient may require D5 normal saline if with hypoglycemia with difficulty swallowing and poor intake. Qualifiers: Diabetes mellitus type: type 2 Diabetes mellitus senior care insulin use: with senior care use Diabetes mellitus complication status: with unspecified complications Qualified Code(s): E11.8 - Type 2 diabetes mellitus with unspecified complications; Z79.4 - watermelon harvesting supervisor (current) use of insulin; Z79.4 - watermelon harvesting supervisor (current) use of insulin; Z79.4 - detention (current) use of insulin; Z79.4 - detention (current) use of insulin (16) CORIE (obstructive sleep apnea) Onset Date: 08/12/17 Current Visit: No Status: Chronic Plan: Patient was severe sleep apnea. Pulmonology consulted. Patient may require BiPAP at night. Discharge Plan: Home Plan to discharge in: Greater than 2 days - Advance Directives Does patient have a Living Will: No Does patient have a Durable POA for Healthcare: No - Code Status/Comfort Care Code Status Assessed: Yes (Patient is DNR.) Time Spent Managing Pts Care (In Minutes): 55
--- NOTE | 2018-04-04 16:23 | EDPHYS ---
Physician Documentation [facility] Name: Kerry Castaneda Age: 62 yrs Sex: Female : 1955 Arrival Date: 04/04/2018 Time: 13:08 Bed 7 Private MD: Luis Eduardo Kendall R ED Physician Porfirio Lopez HPI: 04/04 14:09 This 62 yrs old Female presents to ER via Wheelchair with complaints of ps1 Throat CA, unable to eat/drink. 14:09 hx of throat CA has received radiation therapy. Pt of pant and draksharam. Patient was ps1 supposed to get a PEG tube placed and possible trach but did not have clearance. Pain is currently controlled in the ED, and patient has a fentanyl patch on. Recently finished a medrol dosepack. . Historical: - Allergies: 13:16 ANTIHISTAMINES; ss 13:16 Morphine; ss - PMHx: 13:16 Diabetes - IDDM; High Cholesterol; Hypertension; Seizures; narcolepsy; throat CA; ss - PSHx: 13:16 Stent on aorta; Stent in leg; Hysterectomy; Bladder suspension; Cholecystectomy; Heart ss stents; - Immunization history:: Adult Immunizations unknown. - Social history:: Smoking status: Patient uses tobacco products, unknown amount trying to quit. - Ebola Screening: : Patient denies exposure to infectious person Patient denies travel to an Ebola-affected area in the 21 days before illness onset. ROS: 14:09 Constitutional: Negative for fever, chills, and weight loss, Eyes: Negative for injury, ps1 pain, redness, and discharge, Cardiovascular: Negative for chest pain, palpitations, and edema, Respiratory: Negative for shortness of breath, cough, wheezing, and pleuritic chest pain, Abdomen/GI: Negative for abdominal pain, nausea, vomiting, diarrhea, and constipation, MS/Extremity: Negative for injury and deformity, Skin: Negative for injury, rash, and discoloration, Neuro: Negative for headache, weakness, numbness, tingling, and seizure. 14:09 ENT: Positive for sore throat, dysphagia and odynophagia. Exam: 14:09 Constitutional: This is a well developed, well nourished patient who is awake, alert, ps1 and in no acute distress. Head/Face: Normocephalic, atraumatic. Chest/axilla: Normal chest wall appearance and motion. Nontender with no deformity. No lesions are appreciated. Cardiovascular: Regular rate and rhythm. No gallops, murmurs, or rubs. Normal PMI, no JVD. No pulse deficits. Respiratory: Lungs have equal breath sounds bilaterally, clear to auscultation and percussion. No rales, rhonchi or wheezes noted. No increased work of breathing, no retractions or nasal flaring. Abdomen/GI: Soft, non-tender, with normal bowel sounds. No distension or tympany. No guarding or rebound. No evidence of tenderness throughout. Skin: Warm, dry with normal turgor. Normal color with no rashes, no lesions, and no evidence of cellulitis. MS/ Extremity: Pulses equal, no cyanosis. Neurovascular intact. Full, normal range of motion. Neuro: Awake and alert, GCS 15, oriented to person, place, time, and situation. Cranial nerves II-XII grossly intact. Sensory grossly intact. 14:09 ENT: large mass on the right neck appox 12cm. erythematous. Oropharynx is erythematous with white patches. . Vital Signs: 13:16 BP 106 / 58; Pulse 72; Resp 15; Temp 98.8(O); Pulse Ox 98% on R/A; Weight 76.2 kg; ss Height 5 ft. 2 in. (157.48 cm); Pain 06/04; 15:29 BP 108 / 65; Pulse 69; Resp 19; Pulse Ox 100% on 2 lpm NC; aj 16:18 BP 105 / 58; Pulse 69; Resp 17; Pulse Ox 98% on 2 lpm NC; aj 17:46 BP 116 / 53; Pulse 67; Resp 19; Pulse Ox 100% on R/A; la1 13:16 Body Mass Index 30.73 (76.20 kg, 157.48 cm) ss MDM: 13:59 Patient medically screened. ps1 04/04 13:40 Order name: CBC with Diff; Complete Time: 14:39 ps1 04/04 13:40 Order name: CMP; Complete Time: 14:39 ps1 04/04 13:40 Order name: CT Soft Tissue Neck W/contr; Complete Time: 15:35 ps1 04/04 16:37 Order name: Echo with Doppler EDMS 04/04 13:40 Order name: EKG - Nurse/Tech; Complete Time: 14:09 ps1 04/04 15:32 Order name: EKG Electrocardiogram EDNE 04/04 16:37 Order name: CONS Physician Consult EDNE 04/04 16:37 Order name: CONS Physician Consult EDNE 04/04 16:37 Order name: Clear Liquid EDMS Administered Medications: 14:08 Drug: Lidocaine Gel 2 % 1 ea Volume: 15 ml; Route: Mucous Membrane; aj 14:09 Drug: Decadron - Dexamethasone 10 mg Route: IVP; Site: right antecubital; aj 14:36 Follow up: Response: No adverse reaction sv Point of Care Testing: Blood Glucose: 17:58 Blood Glucose: 81 mg/dL; Ranges: Critical Glucose Levels:Adult <50 mg/dl or >400 mg/dl <40 mg/dl or >180 mg/dl Disposition: 04/04/18 16:22 Hospitalization ordered by Hari Oconnor for Inpatient Admission. Preliminary diagnosis are Throat CA, Airway obstruction, Dyspnea, Odynophagia, Radiation induced esophagitis. - Bed requested for Telemetry/MedSurg (Inpatient). - Status is Inpatient Admission. - Condition is Serious. - Problem is an acute exacerbation. - Symptoms have worsened. UTI on Admission? No Signatures: Dispatcher [employer] Cheryl Dumont RN RN aj Smirch, Shelby, RN RN ss Gallardo, Ana ag Singer, Phillip, MD MD ps1 Verde, Stephanie RN sv Corrections: (The following items were deleted from the chart) 17:17 16:22 Hospitalization Ordered by Hari Oconnor DO for Inpatient Admission. Preliminary ag diagnosis is Throat CA; Airway obstruction; Dyspnea; Odynophagia; Radiation induced esophagitis. Bed requested for Telemetry/MedSurg (Inpatient). Status is Inpatient Admission. Condition is Serious. Problem is an acute exacerbation. Symptoms have worsened. UTI on Admission? No. ps1 18:03 17:17 04/04/2018 16:22 Hospitalization Ordered by Hari Oconnor DO for Inpatient aj Admission. Preliminary diagnosis is Throat CA; Airway obstruction; Dyspnea; Odynophagia; Radiation induced esophagitis. Bed requested for Telemetry/MedSurg (Inpatient). Status is Inpatient Admission. Condition is Serious. Problem is an acute exacerbation. Symptoms have worsened. UTI on Admission? No. ag
--- NOTE | 2018-04-04 16:23 | ER ---
Nurse's Notes [facility] Name: Kerry Castaneda Age: 62 yrs Sex: Female : 1955 Arrival Date: 04/04/2018 Time: 13:08 Bed 7 Private MD: Luis Eduardo Kendall R Diagnosis: Throat CA;Airway obstruction;Dyspnea;Odynophagia;Radiation induced esophagitis Presentation: 04/04 13:13 Presenting complaint: sister reports that patient was supposed to have G tube placed at Dr. Caro'boni and was about to go in for procedure, when they decided suddenly that patient needed cardiac and pulmonary clearance prior to procedure. Pt has a history of throat CA and has been unable to eat or drink recently. Transition of care: patient was not received from another setting of care. Onset of symptoms is unknown. Risk Assessment: Do you want to hurt yourself or someone else? Patient reports no desire to harm self or others. Initial Sepsis Screen: Does the patient meet any 2 criteria? No. Patient's initial sepsis screen is negative. Does the patient have a suspected source of infection? No. Patient's initial sepsis screen is negative. Care prior to arrival: None. 13:13 Method Of Arrival: Wheelchair 13:13 Acuity: MOIRA 3 Historical: - Allergies: 13:16 ANTIHISTAMINES; ss 13:16 Morphine; ss - PMHx: 13:16 Diabetes - IDDM; High Cholesterol; Hypertension; Seizures; narcolepsy; throat CA; ss - PSHx: 13:16 Stent on aorta; Stent in leg; Hysterectomy; Bladder suspension; Cholecystectomy; Heart ss stents; - Immunization history:: Adult Immunizations unknown. - Social history:: Smoking status: Patient uses tobacco products, unknown amount trying to quit. - Ebola Screening: : Patient denies exposure to infectious person Patient denies travel to an Ebola-affected area in the 21 days before illness onset. Screenin:11 Abuse screen: Denies threats or abuse. Denies injuries from another. Nutritional aj screening: No deficits noted. Tuberculosis screening: No symptoms or risk factors identified. Fall Risk None identified. Assessment: 14:09 General: Appears in no apparent distress. comfortable, Behavior is calm, cooperative, aj appropriate for age. Pain: Unable to use pain scale. FLACC scale score is 0 out of 10. Respiratory: Airway is patent Respiratory effort is even, unlabored, Respiratory pattern is regular, symmetrical. GI: Abdomen is obese. EENT: Parent/caregiver reports the patient having pain when swallowing. Derm: Skin is intact, is healthy with good turgor, Skin is pink, warm \T\ dry. normal. 14:11 Reassessment: Patient is sleeping comfortably in bed in NAD. aj 17:59 Reassessment: Patient appears in no apparent distress at this time. No changes from aj previously documented assessment. Patient and/or family updated on plan of care and expected duration. Pain level reassessed. Patient is alert, oriented x 3, equal unlabored respirations, skin warm/dry/pink. Patient denies pain at this time. Vital Signs: 13:16 BP 106 / 58; Pulse 72; Resp 15; Temp 98.8(O); Pulse Ox 98% on R/A; Weight 76.2 kg; ss Height 5 ft. 2 in. (157.48 cm); Pain 10/10; 15:29 BP 108 / 65; Pulse 69; Resp 19; Pulse Ox 100% on 2 lpm NC; aj 16:18 BP 105 / 58; Pulse 69; Resp 17; Pulse Ox 98% on 2 lpm NC; aj 17:46 BP 116 / 53; Pulse 67; Resp 19; Pulse Ox 100% on R/A; la1 13:16 Body Mass Index 30.73 (76.20 kg, 157.48 cm) ED Course: 13:08 Patient arrived in ED. sb2 13:08 Luis Eduardo Kendall MD is Private Physician. sb2 13:15 Triage completed. ss 13:16 Arm band placed on left wrist. ss 13:22 Porfirio Lopez MD is Attending Physician. ps1 13:43 Radiology exam delayed due to lab results not completed at this time. (BUN/Creatinine). kw1 14:08 Cheryl Tay, KIMBERLY is Primary Nurse. aj 14:10 Inserted saline lock: 22 gauge in right antecubital area, using aseptic technique. ss Blood collected. 14:11 Patient has correct armband on for positive identification. Placed in gown. Bed in low aj position. Side rails up X2. Adult w/ patient. 14:16 EKG done, by chief technician. reviewed by Porfirio Lopez MD. 3 14:50 Missed attempt(s): 20 gauge in left antecubital area. Bleeding controlled, band aid dh3 applied, catheter tip intact. 14:55 Inserted saline lock: 18 gauge in left antecubital area, using aseptic technique. dh3 15:[address] via stretcher. 15:14 CT Soft Tissue Neck W/contr In Process Unspecified. EDMS 16:19 Hari Oconnor DO is Hospitalizing Provider. ps1 17:59 No provider procedures requiring assistance completed. Patient admitted, IV remains in aj place. intact. Administered Medications: 14:08 Drug: Lidocaine Gel 2 % 1 ea Volume: 15 ml; Route: Mucous Membrane; aj 14:09 Drug: Decadron - Dexamethasone 10 mg Route: IVP; Site: right antecubital; aj 14:36 Follow up: Response: No adverse reaction sv Point of Care Testing: Blood Glucose: 17:58 Blood Glucose: 81 mg/dL; Ranges: Outcome: 16:22 Decision to Hospitalize by Provider. ps1 18:01 Admitted to Med/surg accompanied by tech, via wheelchair, room 430. aj 18:01 Condition: good 18:01 Instructed on the need for admit. 18:03 Patient left the ED. Signatures: Dispatcher [employer] EDMA Izzy Napoles RN RN sv Myers, Amanda, RN RN aj Smirch, Shelby, Enzo Ybarra RN, RN RN laChantelle Bradshaw Deanna 3 Porfirio Lopez MD MD ps1 Merlene Welch1 Greer Barron2 Jodee Garcia 3 Corrections: (The following items were deleted from the chart) 15:40 13:13 Presenting complaint: sister reports that patient was supposed to have G tube ss placed at Dr. Marsh and was about to go in for procedure, when they decided suddenly that patient needed cardiac and pulmonary clearance prior to arrival. Pt has a history of throat CA and has been unable to eat or drink recently ss
[2018-04-04] MEDS: INSULIN -REGULAR HUMAN 50 UNIT/0.5 ML ML SQ SCH ×2 (16:30→21:00)
[2018-04-04] MEDS: NA CHLORIDE 0.9% 1,000 ML IV SCH (18:35)
[2018-04-04] MEDS: ENOXAPARIN 30 MG/0.3 ML SQ SCH (18:35)
[2018-04-04] MEDS: ARFORMOTEROL TARTRATE 15 MCG/2 ML VIAL.NEB NEB SCH (20:54)
[2018-04-04 23:36] VITALS: BMI 30.7
[2018-04-05 06:16] LABS: Magnesium 2.7 mg/dL (1.8-2.4); Potassium 4.9 mmol/L (3.5-5.1); Thyroid Stimulating Hormone 0.5 uIU/mL (0.36-3.74)
[2018-04-05] MEDS: INSULIN -REGULAR HUMAN 50 UNIT/0.5 ML ML SQ SCH ×4 (07:30→21:00)
--- NOTE | 2018-04-05 07:33 | P.PN ---
Subjective Date of Service: 04/05/18 Primary Care Provider: Dr. Bacon; Onc.-Dr. Mchugh; GI-Dr. Caro; Rad-Dr. Pineda;Card-Dr. Pak Chief Complaint: Dyspnea, dysphagia Subjective: Other (Patient doing well this time. Patient stable. Patient on nasal cannula.) Physical Examination - Vital Signs Temperature: 97.5 F Blood Pressure: 107/55 Pulse: 68 Respirations: 18 Pulse Ox (%): 98 - Physical Exam General: Alert, In no apparent distress, Oriented x3, Cooperative, Other ( Patient with severe sleep apnea) HEENT: Atraumatic Neck: Supple, Other (Larger mass noted to the right cervical region.) Respiratory: Expiratory wheezes (Bilateral) Cardiovascular: Normal pulses, Regular rate/rhythm Gastrointestinal: Normal bowel sounds, Soft and benign, Non-distended, No tenderness, No masses, No rebound, No guarding Musculoskeletal: No erythema, No tenderness, No warmth Integumentary: No tenderness/swelling, No erythema, No warmth, No cyanosis Neurological: Normal speech, Normal strength at 5/5 x4 extr, Normal tone, Normal affect Other Physical/Emotional Findings: Patient dozing off due to severe sleep apnea - Studies Laboratory Data (last 24 hrs) 04/04/18 14:06: Sodium 141, Potassium 4.4, BUN 46 H, Creatinine 2.20 H, Glucose 69 L, Total Bilirubin 0.5, AST 42 H, ALT 32, Alkaline Phosphatase 43 L 04/04/18 14:06: WBC 3.9 L, Hgb 11.6 L, Hct 35.1 L, Plt Count 201 Medications List Reviewed: Yes Assessment & Plan - Problems (Diagnosis) (1) Dyspnea Current Visit: Yes Status: Acute Plan: Patient with dyspnea likely from COPD and sleep apnea. Will maintain sats above 90%. Will continue with COPD medication. Will provide BiPAP as needed. Pulmonology consulted for clearance for PEG tube placement. Qualifiers: Dyspnea type: shortness of breath Qualified Code(s): R06.02 - Shortness of breath; R06.00 - Dyspnea, unspecified; R06.01 - Orthopnea (2) Dysphagia Current Visit: Yes Status: Acute Plan: Patient with dysphagia and poor intake. Patient also with pain and difficulty swallowing. Patient seen by GI as an outpatient. Will monitor dietary intake. Patient desires PEG tube. 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 GI recommends pulmonary and cardiac clearance. Pulmonology and Cardiology consulted. Echocardiogram pending. Will try to obtain information from her mass spectroscopist-Dr. Pak in [place]. (3) COPD (chronic obstructive pulmonary disease) Current Visit: Yes Status: Acute Plan: Patient with COPD. Will continue with her medication. Maintain sats above 90% Qualifiers: COPD type: chronic bronchitis Chronic bronchitis type: unspecified Qualified Code(s): J42 - Unspecified chronic bronchitis (4) Problems with swallowing Current Visit: Yes Status: Acute Plan: Continue as above. GI consulted. Case discussed with GI. Patient will need PEG tube. GI requests pulmonology and cardiology clearance. Will try to to obtain records from her mass spectroscopist up in [place]. Will order echocardiogram. (5) Malnutrition Current Visit: Yes Status: Acute Plan: Will monitor oral intake. Qualifiers: Malnutrition type: protein-calorie malnutrition Protein-calorie malnutrition severity: moderate Qualified Code(s): E44.0 - Moderate protein- calorie malnutrition (6) Chronic renal failure Current Visit: Yes Status: Acute Plan: Will consult Nephrology to further assess. Will provide IV fluids. 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 Patient seen by oncology and radiation oncology. Continue fentanyl patch. May need to hold if with increase sedation. Continue as above. (8) Metastatic disease Current Visit: Yes Status: Acute Plan: Patient with metastatic disease to the cervical lymph node. (9) Hypertension Current Visit: Yes Status: Chronic Plan: Restart home medication. Hold if blood pressure systolic less than 120 Qualifiers: Hypertension type: essential hypertension Qualified Code(s): I10 - Essential (primary) hypertension (10) CAD (coronary artery disease) Current Visit: Yes Status: Chronic Plan: Cardiology consulted for cardiac clearance for PEG tube. Will order echocardiogram. Will hold Plavix in preparation for PEG tube. (11) PVD (peripheral vascular disease) Current Visit: Yes Status: Chronic Plan: Patient with history of stent. Will hold Plavix in preparation for PEG tube. (12) Hyperlipidemia Current Visit: Yes Status: Chronic Plan: Will verify home medication (13) Hypothyroidism Current Visit: Yes Status: Chronic Plan: Continue with home medication Qualifiers: Hypothyroidism type: unspecified Qualified Code(s): E03.9 - Hypothyroidism , unspecified (14) Seizure disorder Current Visit: Yes Status: Chronic Plan: Patient with history of seizure disorder but not taking any medication. Sister reports that she has not had a seizure in a long time. Will verify home medication (15) Diabetes mellitus Onset Date: 08/12/17 Current Visit: No Status: Chronic Plan: Continue sliding scale. Patient may require D5 normal saline if with hypoglycemia with difficulty swallowing and poor intake. Qualifiers: Diabetes mellitus type: type 2 Diabetes mellitus truck terminal manager insulin use: with halfway use Diabetes mellitus complication status: with unspecified complications Qualified Code(s): E11.8 - Type 2 diabetes mellitus with unspecified complications; Z79.4 - detention (current) use of insulin; Z79.4 - detention (current) use of insulin; Z79.4 - terminal worker (current) use of insulin; Z79.4 - detention (current) use of insulin (16) CORIE (obstructive sleep apnea) Onset Date: 08/12/17 Current Visit: No Status: Chronic Plan: Patient was severe sleep apnea. Pulmonology consulted. Patient may require BiPAP at night. Discharge Plan: Home Plan to discharge in: Greater than 2 days Time Spent Managing Pts Care (In Minutes): 55
[2018-04-05 07:51] LABS: Absolute Lymphocytes (CBC) 0.2 K/uL (0.7-4.9); Absolute Monocytes 0.1 K/uL (0.1-1.3); Basophils % 0.1 % (0-1.3); Eosinophils % 0.1 % (0-4.4); Lymphocytes % 5.5 % (15.3-44.8); MCH 31.2 pg (27.0-35.0); MCV 96.2 fL (80-100); MPV 9.6 fL (7.6-11.3); Monocytes % 3.7 % (3.3-12.3); RBC Red Blood Cell Count 4.06 M/uL (3.86-4.86)
--- NOTE | 2018-04-05 07:51 | EKG ---
Test Date: 2018-04-04 Test Time: 14:10:39 Inspector Plumbing: SAVNANA MEASUREMENT RESULTS: Intervals: Rate: 70 SC: 176 QRSD: 98 QT: 452 QTc: 488 Andrews: P: 65 SC: 176 QRS: -14 T: 38 INTERPRETIVE STATEMENTS: Sinus rhythm with premature atrial complexes Otherwise normal ECG Compared to ECG 02/05/2018 09:30:21 Atrial premature complex(es) now present Sinus arrhythmia no longer present Electronically Signed On 04-05-18 07:50:35 CDT by Rudy Helms
[2018-04-05] MEDS: CITALOPRAM 10 MG TABLET PO SCH (08:11)
[2018-04-05] MEDS: PANTOPRAZOLE 40 MG INJ IVP SCH (08:11)
[2018-04-05] MEDS: ASPIRIN EC 81 MG TAB PO SCH (08:11)
[2018-04-05] MEDS: GABAPENTIN 300 MG CAP PO SCH (08:12)
[2018-04-05] MEDS: ENOXAPARIN 30 MG/0.3 ML SQ SCH (08:18)
[2018-04-05] MEDS: ARFORMOTEROL TARTRATE 15 MCG/2 ML VIAL.NEB NEB SCH ×2 (08:37→19:46)
[2018-04-05] MEDS: ALBUTEROL 2.5 MG/3 ML NEB SOL NEB PRN ×2 (08:37→19:46)
[2018-04-05] MEDS ORDERED: HOME MED 1 EA UNK (Citalopram Hydrobromide [Celexa] 40 MG) PO SCH (09:00)
[2018-04-05] MEDS ORDERED: [UNRECOGNIZED DRUG - OTHER] PO SCH (09:00)
[2018-04-05] MEDS ORDERED: FUROSEMIDE 20 MG TABLET PO SCH (09:00)
[2018-04-05] MEDS ORDERED: GLY PO SCH (09:00)
[2018-04-05] MEDS ORDERED: LEVOTHYROXINE SOD 0.112 MG TAB PO SCH (09:00)
[2018-04-05] MEDS ORDERED: AMLODIPINE 5 MG TAB PO SCH ×2 (09:00)
[2018-04-05 09:06] LABS: Blood Morphology Comment NOT SEEN (NOT SEEN); Platelet Estimate ADEQ; Urine White Blood Cell Casts OK
[2018-04-05] MEDS: TOPIRAMATE 100 MG TAB PO SCH ×2 (10:02→21:28)
--- NOTE | 2018-04-05 11:16 | CON ---
Identification: A 62-year-old woman. Reason For Consult: Preop evaluation before she gets a PEG tube placement. History Of Present Illness: Ms. Castaneda is wanting to get a PEG tube placement. She saw Dr. Caro, it was scheduled to be done in his office and she appeared to be getting worse, more swollen in the fac e, not eating at all. The surgery was canceled. The patient reports having had stents 2 years ago. It was done at [facility]. She does not recall the physician that did it or any of the usual details we had apparently. She was not having angina then and does not see the doctor who did that any long er. 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 She is barely able to speak . She has been made do not resuscitate. I am not sure she is under hospice care, but she wants to b e able to get some nutrition. She denies having chest pain. Physical Examination: General: She is alert and oriented. Lungs: Her lungs are clear. There is a small amount of stridor. It does not appear to come from th e vocal cords, but probably from the supraglottal region. No wheezing. Heart Exam: Reveals a regular rate and rhythm. There is no murmur, rub, or gallop. Diagnostic Data: An EKG shows all normal findings except for a premature atrial complex. Impression And Plan: The patient is a very acceptable candidate for having MAC and an endoscopic pro cedure to place a PEG tube. She does not need any further cardiac workup than what she has already h ad. Thank you very much for your kind referral of Ms. Castaneda. I will follow her with you. MIRACLE Voice ID: [id number] Report ID: [id number]
--- NOTE | 2018-04-05 11:33 | RAD REPORT ---
EXAM DESCRIPTION: RAD - Chest Single View - 04/05/2018 6:04 am CLINICAL HISTORY: follow up SOB Chest pain. COMPARISON: Chest Single View dated 08/10/2017; Chest Single View dated 08/07/2017; Chest Single Vie w dated 07/09/2017 FINDINGS: Portable technique limits examination quality. The lungs are grossly clear. The patient's chin obscures portion of both lung apices. The heart is up per limit normal in size. Stent is present in the descending thoracic aorta. No displaced fractures.D egenerative changes are present both shoulders. IMPRESSION: No acute intrathoracic process suspected.
--- NOTE | 2018-04-05 12:35 | P.CNS ---
Date of Consult: 04/05/18 Reason for Consult: MARY/ CKD Requesting Physician: Hari Oconnor Primary Care Provider: Dr. Bacon; Onc.-Dr. Mchugh; GI-Dr. Caro; Rad-Dr. Pineda;Card-Dr. Pak Chief Complaint: Dyspnea, dysphagia History of Present Illness: 62 yo WF CKD, HTN presents to the ER with several days of moderate, persistent dyspnea and dysphagia in the setting of throat cancer. Reports poor intake with dark urine output. Reports taking regular doses of BC powder. No NSAIDs. No difficulty with urination. 62-year-old female presented emergency room with dyspnea and dysphagia. 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 Over the past several days she has been having increasing shortness of breath and dysphagia. Patient has been getting radiation as an outpatient. Patient is currently in the process of trying to obtain a feeding tube. Patient has had poor oral intake. She has had weight loss. She reports some problems with swallowing. She was recently evaluated by GI. GI recommended cardiology and pulmonology clearance before PEG tube is placed. Her symptoms of dysphagia and dyspnea got worse today. She came to the ER for further evaluation. Patient with multiple medical problems including diabetes, hypertension, hyperlipidemia, CAD, peripheral vascular disease, hypothyroidism, though PD, tobacco abuse, and severe sleep apnea. 14:09 This 62 yrs old Female presents to ER via Wheelchair with complaints of ps1 Throat CA, unable to eat/drink. 14:09 hx of throat CA has received radiation therapy. Pt of [facility]. Patient was ps1 supposed to get a PEG tube placed and possible trach but did not have clearance. Pain is currently controlled in the ED, and patient has a fentanyl patch on. Recently finished a medrol dosepack. Allergies morphine Allergy (Mild, Verified 02/05/18 09:36) Nausea/Vomiting ANTIHISTAMINES Allergy (Mild, Uncoded 02/05/18 09:36) Itching Home medications list reviewed: Yes Home Medications: Amlodipine Besylate [Norvasc] 5 mg PO DAILY 04/04/18 Aspirin [Aspirin EC 81 MG] 81 mg PO DAILY 04/04/18 Citalopram Hydrobromide [Celexa] 40 mg PO DAILY 04/04/18 Fentanyl Patch [Duragesic Patch*] 25 mcg TOP EVERY 3RD DAY 04/04/18 Gabapentin [Neurontin*] 1,200 mg PO BEDTIME 04/04/18 Gabapentin [Neurontin*] 600 mg PO DAILY 04/04/18 Gly/Carb Homopoly A/Pot Hydrox [Mugard Oral Wound Rinse] 10 ml PO QID 04/04/18 Hydrocodone/APAP Soln [Lortab Solution] 7.5 ml PO QIDP PRN 04/04/18 Insulin -Regular Human [Novolin -R*] 10 units SQ BID 04/04/18 Levothyroxine [Synthroid*] 0.112 mcg PO DAILY 04/04/18 Magic Mouthwash [Magic Mouthwash*] 5 ml PO QID 04/04/18 Minocycline HCl [Minocin] 100 mg PO BID 04/04/18 Ondansetron [Ondansetron Odt] 4 mg PO TIDP PRN 04/04/18 Pantoprazole Sodium [Protonix] 40 mg PO DAILY 04/04/18 Potassium Chloride [K-Tab ER] 20 meq PO SEECOM 04/04/18 Quetiapine Fumarate [Seroquel] 25 mg PO BEDTIME 04/04/18 Topiramate [Topamax*] 100 mg PO BID 04/04/18 Torsemide [Demadex*] 40 mg PO DAILY 04/04/18 - Past Medical/Surgical History Diabetic: Yes -: Obesity -: Severe obstructive sleep apnea -: Diabetes mellitus type 2 -: Hypertension -: Hyperlipidemia -: CAD -: 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 She lives with her sister. She has 1 child. - Social History Smoking Status: Current every day smoker Alcohol use: No CD- Drugs: No Caffeine use: Yes Place of Residence: Home Review of Systems 10-point ROS is otherwise unremarkable General: Weakness, Malaise Musculoskeletal: Neck Pain Physical Examination Temp Pulse Resp BP Pulse Ox 97.1 F 71 20 121/58 L 100 04/05/18 08:00 04/05/18 08:12 04/05/18 08:00 04/05/18 08:12 04/05/18 08:00 General: Alert, In no apparent distress, Cooperative, Confused HEENT: Atraumatic Neck: Other (Right mass) Respiratory: Clear to auscultation bilaterally Cardiovascular: No edema, Regular rate/rhythm, No rubs Gastrointestinal: Soft and benign, Non-distended, No guarding Musculoskeletal: No clubbing, No contractures Integumentary: No rashes, No cyanosis Neurological: Normal speech Laboratory Data (last 24 hrs) 04/04/18 14:06: Sodium 141, Potassium 4.4, BUN 46 H, Creatinine 2.20 H, Glucose 69 L, Total Bilirubin 0.5, AST 42 H, ALT 32, Alkaline Phosphatase 43 L 04/04/18 14:06: WBC 3.9 L, Hgb 11.6 L, Hct 35.1 L, Plt Count 201 Imagings Data: EXAM DESCRIPTION: RAD - Chest Single View - 04/05/2018 6:04 am CLINICAL HISTORY: follow up SOB Chest pain. COMPARISON: Chest Single View dated 08/10/2017; Chest Single View dated 2016; Chest Single View dated 07/09/2017 FINDINGS: Portable technique limits examination quality. The lungs are grossly clear. The patient's chin obscures portion of both lung apices. The heart is upper limit normal in size. Stent is present in the descending thoracic aorta. No displaced fractures.Degenerative changes are present both shoulders. IMPRESSION: No acute intrathoracic process suspected. Conclusions/Impression: A/ MARY in the setting of hypovolemia. CKD III. HTN with CKD. CORIE. DM II with CKD. Anemia in chronic illness. Leukocytopenia. Moderate malnutrition. Hypermagnesemia. Chronic pain. No NSAIDs. P/ Continue current POC and Medications. Start IVF X1 liter; monitor volume status and weight closely. CPAP as needed. No NSAIDs. Follow up urine studies. AM labs. Daily weight. Thank you kindly for the consultation.
[2018-04-05] MEDS: NA CHLORIDE 0.9% 1,000 ML IV SCH (13:00)
[2018-04-05] MEDS: [UNRECOGNIZED DRUG - SUPPLY] PO SCH ×3 (13:14→21:27)
[2018-04-05] MEDS: MAGIC MOUTHWASH 180 ML BTL PO SCH ×3 (13:14→21:00)
[2018-04-05] MEDS ORDERED: NA CHLORIDE 0.9% 1,000 ML IV SCH (14:00)
[2018-04-05] MEDS: GLUCERNA 1.5 CAL 1,000 ML BOT FT SCH ×2 (16:58→21:00)
[2018-04-05] MEDS ORDERED: NACHLORIDE 0.45% 1,000 ML IV SCH (21:00)
[2018-04-05] MEDS: GABAPENTIN 400 MG CAP PO SCH (21:28)
--- NOTE | 2018-04-05 21:59 | RAD REPORT ---
EXAM DESCRIPTION: US - Renal Ultrasound-Complete - 04/05/2018 9:45 pm CLINICAL HISTORY: MARY/ CKD III. COMPARISON: <Comparisons> FINDINGS: Both kidneys are normal in size, shape and echotexture. The right kidney measures 10.8 x 5.2 x 4.5 cm. No hydronephrosis, focal mass or perinephric fluid. The left kidney measures 10.5 x 5.1 x 4.9 cm. No hydronephrosis, focal mass or perinephric fluid. The urinary bladder is incompletely distended without gross abnormality seen. IMPRESSION: Unremarkable renal sonogram.
[2018-04-06 04:47] LABS: Absolute Lymphocytes (CBC) 0.3 K/uL (0.7-4.9); Absolute Monocytes 0.3 K/uL (0.1-1.3); Basophils % 0.4 % (0-1.3); Eosinophils % 1.7 % (0-4.4); Lymphocytes % 7.2 % (15.3-44.8); MCH 31.9 pg (27.0-35.0); MCV 96.2 fL (80-100); Monocytes % 8.8 % (3.3-12.3); RBC Red Blood Cell Count 3.53 M/uL (3.86-4.86)
[2018-04-06 05:23] LABS: Magnesium 2.4 mg/dL (1.8-2.4); Potassium 4.7 mmol/L (3.5-5.1); Uric Acid 8.4 mg/dL (2.6-6.0)
[2018-04-06] MEDS: LEVOTHYROXINE SOD 0.112 MG TAB PO SCH (06:05)
[2018-04-06] MEDS: INSULIN -REGULAR HUMAN 50 UNIT/0.5 ML ML SQ SCH ×4 (07:30→21:00)
[2018-04-06] MEDS ORDERED: POTASS/SODIUM PHOSPHATE 1 PKT POWD.PACK PO ONE (07:30)
[2018-04-06] MEDS: ARFORMOTEROL TARTRATE 15 MCG/2 ML VIAL.NEB NEB SCH (07:51)
--- NOTE | 2018-04-06 08:13 | P.PN ---
Subjective Date of Service: 04/06/18 Primary Care Provider: Dr. Bacon; Onc.-Dr. Mchugh; GI-Dr. Caro; Rad-Dr. Pineda;Card-Dr. Pak Chief Complaint: Dyspnea, dysphagia Subjective: Doing well (Still with difficulty swallowing) Physical Examination - Vital Signs Temperature: 97 F Blood Pressure: 119/55 Pulse: 66 Respirations: 20 Pulse Ox (%): 93 - Physical Exam General: Alert, In no apparent distress, Oriented x3, Cooperative HEENT: Atraumatic Neck: Supple, Other (Large mass to the right cervical region) Respiratory: Clear to auscultation bilaterally, Normal air movement Cardiovascular: Normal pulses, Regular rate/rhythm Gastrointestinal: Normal bowel sounds, Soft and benign, Non-distended, No tenderness, No masses, No rebound, No guarding Musculoskeletal: No erythema, No tenderness, No warmth Integumentary: No erythema, No warmth, No cyanosis Neurological: Normal speech, Normal strength at 5/5 x4 extr, Normal tone, Normal affect Other Physical/Emotional Findings: Patient dozing off due to severe sleep apnea - Studies Medications List Reviewed: Yes Assessment & Plan - Problems (Diagnosis) (1) Dyspnea Current Visit: Yes Status: Acute Plan: Patient with dyspnea likely from COPD and sleep apnea. Will maintain sats above 90%. Will continue with COPD medication. Will provide BiPAP as needed. Cardiology has cleared patient for PEG tube. Will order speech evaluation and swallow test tomorrow to confirm. Case discussed with GI. GI plans for PEG tube tomorrow. Qualifiers: Dyspnea type: shortness of breath Qualified Code(s): R06.02 - Shortness of breath; R06.00 - Dyspnea, unspecified; R06.01 - Orthopnea (2) Dysphagia Current Visit: Yes Status: Acute Plan: Patient with dysphagia and poor intake due to supraglottic carcinoma with mets to the right cervical region. Will order swallow evaluation with speech to confirm problems with swallowing. Case discussed with GI. GI plans for PEG tube tomorrow. Patient cleared by cardiology. (3) COPD (chronic obstructive pulmonary disease) Current Visit: Yes Status: Acute Plan: Patient with COPD. Will continue with her medication. Maintain sats above 90% Qualifiers: COPD type: chronic bronchitis Chronic bronchitis type: unspecified Qualified Code(s): J42 - Unspecified chronic bronchitis (4) Problems with swallowing Current Visit: Yes Status: Acute Plan: Continue as above. Speech evaluation and barium swallow to be done tomorrow. GI plans for PEG tube tomorrow. Patient cleared by Cardiology to proceed. (5) Malnutrition Current Visit: Yes Status: Acute Plan: Will monitor oral intake. Qualifiers: Malnutrition type: protein-calorie malnutrition Protein-calorie malnutrition severity: moderate Qualified Code(s): E44.0 - Moderate protein- calorie malnutrition (6) Chronic renal failure Current Visit: Yes Status: Acute Plan: Continue with IV fluids. Nephrology consulted. 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 Patient seen by oncology and radiation oncology. Continue fentanyl patch. May need to hold if with increase sedation. Continue as above. (8) Metastatic disease Current Visit: Yes Status: Acute Plan: Patient with metastatic disease to the cervical lymph node. (9) Hypertension Current Visit: Yes Status: Chronic Plan: Continue with medication. Hold if blood pressure systolic less than 120 Qualifiers: Hypertension type: essential hypertension Qualified Code(s): I10 - Essential (primary) hypertension (10) CAD (coronary artery disease) Current Visit: Yes Status: Chronic Plan: Cardiology has cleared the patient for PEG tube. Will continue to hold Plavix in preparation for PEG tube tomorrow. (11) PVD (peripheral vascular disease) Current Visit: Yes Status: Chronic Plan: Patient with history of stent. Will hold Plavix in preparation for PEG tube. (12) Hyperlipidemia Current Visit: Yes Status: Chronic Plan: Will continue with medication (13) Hypothyroidism Current Visit: Yes Status: Chronic Plan: Continue with home medication Qualifiers: Hypothyroidism type: unspecified Qualified Code(s): E03.9 - Hypothyroidism , unspecified (14) Seizure disorder Current Visit: Yes Status: Chronic Plan: Patient with history of seizure disorder but not taking any medication. Sister reports that she has not had a seizure in a long time. Will verify home medication (15) Diabetes mellitus Onset Date: 08/12/17 Current Visit: No Status: Chronic Plan: Continue sliding scale. Patient may require D5 normal saline if with hypoglycemia with difficulty swallowing and poor intake. Qualifiers: Diabetes mellitus type: type 2 Diabetes mellitus warehouse operations associate insulin use: with half-way use Diabetes mellitus complication status: with unspecified complications Qualified Code(s): E11.8 - Type 2 diabetes mellitus with unspecified complications; Z79.4 - wreath maker (current) use of insulin; Z79.4 - alf (current) use of insulin; Z79.4 - wreath maker (current) use of insulin; Z79.4 - alf (current) use of insulin (16) CORIE (obstructive sleep apnea) Onset Date: 08/12/17 Current Visit: No Status: Chronic Plan: Patient was severe sleep apnea. Pulmonology consulted. Patient may require BiPAP at night. Discharge Plan: Home Plan to discharge in: 24 Hours (to 48 hours) Time Spent Managing Pts Care (In Minutes): 55
[2018-04-06] MEDS: [UNRECOGNIZED DRUG - SUPPLY] PO SCH ×4 (08:52→21:58)
[2018-04-06] MEDS: FENTANYL 25 MCG/PATCH TD SCH (08:55)
[2018-04-06] MEDS: TOPIRAMATE 100 MG TAB PO SCH ×2 (08:56→21:43)
[2018-04-06] MEDS: PANTOPRAZOLE 40 MG INJ IVP SCH (08:56)
[2018-04-06] MEDS: ASPIRIN EC 81 MG TAB PO SCH (08:56)
[2018-04-06] MEDS: CITALOPRAM 10 MG TABLET PO SCH (08:56)
[2018-04-06] MEDS: ENOXAPARIN 30 MG/0.3 ML SQ SCH (08:57)
[2018-04-06] MEDS: GABAPENTIN 300 MG CAP PO SCH (08:57)
[2018-04-06] MEDS: GLUCERNA 1.5 CAL 1,000 ML BOT FT SCH ×4 (08:58→21:59)
[2018-04-06] MEDS: MAGIC MOUTHWASH 180 ML BTL PO SCH ×4 (08:59→21:57)
--- NOTE | 2018-04-06 09:26 | P.CNS ---
Date of Consult: 04/06/18 Primary Care Provider: Dr. Bacon; Onc.-Dr. Mchugh; GI-Dr. Caro; Rad-Dr. Pineda;Card-Dr. Pak Chief Complaint: Dyspnea, dysphagia History of Present Illness: Patient is 62 years of age history of throat cancer status post radiation admitted with a sore tongue unable to swallow Kegel for a PEG tube heavy smoker quit recently no prior history of COPD patient denies any shortness of breath or cough does not take any bronchodilators at home no prior history of any cardio problem Allergies morphine Allergy (Mild, Verified 02/05/18 09:36) Nausea/Vomiting ANTIHISTAMINES Allergy (Mild, Uncoded 02/05/18 09:36) Itching Home Medications: Amlodipine Besylate [Norvasc] 5 mg PO DAILY 04/04/18 Aspirin [Aspirin EC 81 MG] 81 mg PO DAILY 04/04/18 Citalopram Hydrobromide [Celexa] 40 mg PO DAILY 04/04/18 Fentanyl Patch [Duragesic Patch*] 25 mcg TOP EVERY 3RD DAY 04/04/18 Gabapentin [Neurontin*] 1,200 mg PO BEDTIME 04/04/18 Gabapentin [Neurontin*] 600 mg PO DAILY 04/04/18 Gly/Carb Homopoly A/Pot Hydrox [Mugard Oral Wound Rinse] 10 ml PO QID 04/04/18 Hydrocodone/APAP Soln [Lortab Solution] 7.5 ml PO QIDP PRN 04/04/18 Insulin -Regular Human [Novolin -R*] 10 units SQ BID 04/04/18 Levothyroxine [Synthroid*] 0.112 mcg PO DAILY 04/04/18 Magic Mouthwash [Magic Mouthwash*] 5 ml PO QID 04/04/18 Minocycline HCl [Minocin] 100 mg PO BID 04/04/18 Ondansetron [Ondansetron Odt] 4 mg PO TIDP PRN 04/04/18 Pantoprazole Sodium [Protonix] 40 mg PO DAILY 04/04/18 Potassium Chloride [K-Tab ER] 20 meq PO SEECOM 04/04/18 Quetiapine Fumarate [Seroquel] 25 mg PO BEDTIME 04/04/18 Topiramate [Topamax*] 100 mg PO BID 04/04/18 Torsemide [Demadex*] 40 mg PO DAILY 04/04/18 - Past Medical/Surgical History Diabetic: Yes -: Obesity -: Severe obstructive sleep apnea -: Diabetes mellitus type 2 -: Hypertension -: Hyperlipidemia -: CAD -: 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 She lives with her sister. She has 1 child. - Social History Smoking Status: Current every day smoker Alcohol use: No CD- Drugs: No Caffeine use: Yes Place of Residence: Home Review of Systems 10-point ROS is otherwise unremarkable General: Weakness Physical Examination Temp Pulse Resp BP Pulse Ox 97 F 66 20 119/55 L 93 04/06/18 08:13 04/06/18 08:13 04/06/18 08:13 04/06/18 08:13 04/06/18 08:13 General: Alert, Oriented x3 HEENT: Other (Patient has a large neck mass) Respiratory: Clear to auscultation bilaterally Cardiovascular: No edema, Regular rate/rhythm Gastrointestinal: Normal bowel sounds, Soft and benign Musculoskeletal: No clubbing, No swelling - Problems (1) COPD (chronic obstructive pulmonary disease) Current Visit: Yes Status: Acute Plan: Patient is 62 years of age with possible underlying COPD patient's chest x-rays clear room-air sats a satisfactory patient is a heavy smoker patient has renal insufficiency white count is low patient has a history of obstructive sleep apnea and does have a BiPAP at home Jose Guadalupe Stephens change to Jaskaran Qualifiers: COPD type: chronic bronchitis Chronic bronchitis type: unspecified Qualified Code(s): J42 - Unspecified chronic bronchitis (2) Cancer of supraglottis Current Visit: Yes Status: Acute Plan: Patient has cancer of the supraglottis scheduled for a PEG tube status post radiation
[2018-04-06] MEDS: DULERA 200/5 (MOMETASONE/FORMOTEROL) INHALER IH SCH ×2 (09:42→21:59)
--- NOTE | 2018-04-06 11:17 | PN ---
Mrs. Castaneda remains stable from the cardiovascular viewpoint. Renal function is improved. Since todd ng here, getting some IV hydration. I think she is an acceptable candidate to do an endoscopic PEG t ube placement. I think that is planned for tomorrow. LATISHA/LIBERTAD Voice ID: [id number] Report ID: [id number]
--- NOTE | 2018-04-06 12:42 | P.PN ---
Date of Service: 04/06/18 Vital Signs Temp Pulse Resp BP Pulse Ox 97.3 F 69 18 118/55 L 93 04/06/18 12:00 04/06/18 12:00 04/06/18 12:00 04/06/18 12:00 04/06/18 12:00 Medications Acetaminophen (Tylenol -Extra Strength) 500 mg PO Q4HP PRN PRN Reason: [id number] Stop: 05/04/18 16:24 Acetaminophen (Tylenol Suppository) [address] Q6HP PRN PRN Reason: [id number] Stop: 05/04/18 16:24 Albuterol Sulfate (Proventil 0.083% Neb Soln) 2.5 mg NEB [id number] PRN PRN Reason: SHORTNESS OF BREATH Stop: 05/04/18 20:01 Last Admin: 04/05/18 19:46 Dose: 2.5 mg Aspirin (Aspirin Ec) 81 mg PO DAILY [facility] Stop: 05/05/18 09:01 Last Admin: 04/06/18 08:56 Dose: 81 mg Citalopram Hydrobromide (Celexa) 40 mg PO DAILY [facility] Stop: 05/05/18 09:01 Last Admin: 04/06/18 08:56 Dose: 40 mg Diphenhydr/Magaldrate/Simeth/Lidoca (Magic Mouthwash) 5 ml PO QID [facility] Stop: 05/05/18 13:01 Last Admin: 04/06/18 12:15 Dose: 5 ml Enoxaparin Sodium (Lovenox 30 Mg Inj) 30 mg SQ DAILY [facility] Stop: 05/04/18 18:01 Last Admin: 04/06/18 08:57 Dose: 30 mg Enteral Nutritional Formula (Glucerna 1.5 Emmanuel) 237 ml FT QID [facility] Stop: 05/05/18 17:01 Last Admin: 04/06/18 12:15 Dose: 237 ml Fentanyl (Duragesic Patch) 25 mcg TD EVERY 3RD DAY [facility] Stop: 05/06/18 09:01 Last Admin: 04/06/18 08:55 Dose: 25 mcg Gabapentin (Neurontin) 1,200 mg PO BEDTIME [facility] Stop: 05/05/18 21:01 Last Admin: 04/05/18 21:28 Dose: 1,200 mg Gabapentin (Neurontin) 600 mg PO DAILY [facility] Stop: 05/05/18 09:01 Last Admin: 04/06/18 08:57 Dose: 600 mg Home Med (Gly/Carb Homopoly A/Pot Hydrox [Mugard Oral Wound Rinse]) 0 ml PO QID [facility] Stop: 05/05/18 13:01 Last Admin: 04/06/18 12:15 Dose: 10 ml Sodium Chloride (Sodium Chloride 0.45%) 1,000 mls @ 75 mls/hr IV .[id number] [facility] Stop: 04/07/18 08:49 Insulin Human Regular (Novolin -R) 0 unit SQ ACHS [facility]; Protocol Stop: 05/04/18 16:31 Last Admin: 04/06/18 11:21 Dose: Not Given Ipratropium [place] (Atrovent Neb) 0.5 mg NEB [id number] PRN PRN Reason: SHORTNESS OF BREATH Stop: 05/04/18 20:01 Last Admin: 04/05/18 19:46 Dose: 0.5 mg Levothyroxine Sodium (Synthroid) 0.112 mg PO [id number] [facility] Stop: 05/06/18 06:01 Last Admin: 04/06/18 06:05 Dose: 0.112 mg Ondansetron HCl (Zofran) 4 mg IV Q6HP PRN PRN Reason: NAUSEA / VOMITING Stop: 05/04/18 16:24 Pantoprazole Sodium (Protonix Inj) 40 mg IVP DAILY [facility] Stop: 05/05/18 09:01 Last Admin: 04/06/18 08:56 Dose: 40 mg Quetiapine Fumarate (Seroquel) 25 mg PO BEDTIME PRN PRN Reason: INSOMNIA Stop: 05/05/18 07:24 Sodium Chloride (Normal Saline Flush) 10 ml IV BID [facility] Stop: 05/04/18 21:01 Last Admin: 04/06/18 08:59 Dose: Not Given Sodium Chloride (Sodium Chloride 10 Ml Inj) 10 ml IV UD PRN PRN Reason: Diluant Stop: 05/04/18 16:24 Topiramate (Topamax) 100 mg PO BID [facility] Stop: 05/05/18 09:01 Last Admin: 04/06/18 08:56 Dose: 100 mg Assessment/ Plan: Nephrology. Reports difficulty and pain with swallowing. CPS stable without CP or SOB. No acute events overnight. Vitals, medications, blood work and imaging reviewed in the chart. General: Alert, In no apparent distress, Cooperative, Confused HEENT: Atraumatic Neck: Other (Right mass) Respiratory: Clear to auscultation bilaterally Cardiovascular: Trace edema, Regular rate/rhythm, No rubs Gastrointestinal: Soft and benign, Non-distended, No guarding Musculoskeletal: No clubbing, No contractures Integumentary: No rashes, No cyanosis Neurological: Normal speech Laboratory Data (last 24 hrs) 04/04/18 14:06: Sodium 141, Potassium 4.4, BUN 46 H, Creatinine 2.20 H, Glucose 69 L, Total Bilirubin 0.5, AST 42 H, ALT 32, Alkaline Phosphatase 43 L 04/04/18 14:06: WBC 3.9 L, Hgb 11.6 L, Hct 35.1 L, Plt Count 201 Imagings Data: EXAM DESCRIPTION: RAD - Chest Single View - 04/05/2018 6:04 am CLINICAL HISTORY: follow up SOB Chest pain. COMPARISON: Chest Single View dated 08/10/2017; Chest Single View dated 2016; Chest Single View dated 07/09/2017 FINDINGS: Portable technique limits examination quality. The lungs are grossly clear. The patient's chin obscures portion of both lung apices. The heart is upper limit normal in size. Stent is present in the descending thoracic aorta. No displaced fractures.Degenerative changes are present both shoulders. IMPRESSION: No acute intrathoracic process suspected. Conclusions/Impression: A/ MARY in the setting of hypovolemia. CKD III. HTN with CKD. CORIE. DM II with CKD. Anemia in chronic illness. Leukocytopenia. Moderate malnutrition. HypoPO4. Hypermagnesemia. Chronic pain. No NSAIDs. P/ Continue current POC and Medications. Will give one more liter of gentle IVF overnight prior to the PEG placement. Neutraphos given. CPAP as needed. No NSAIDs. AM labs. Daily weight.
[2018-04-06] MEDS ORDERED: NACHLORIDE 0.45% 1,000 ML IV SCH (19:30)
[2018-04-06] MEDS: QUETIAPINE 25 MG TAB PO PRN (21:43)
[2018-04-06] MEDS: GABAPENTIN 400 MG CAP PO SCH (21:45)
[2018-04-07 04:07] LABS: Absolute Lymphocytes (CBC) 0.2 K/uL (0.7-4.9); Absolute Monocytes 0.4 K/uL (0.1-1.3); Absolute Neutrophil 2.6 K/uL (1.8-8.0); Basophils % 0.9 % (0-1.3); Eosinophils % 2.6 % (0-4.4); Hematocrit 32.3 % (36.0-45.0); Lymphocytes % 6.4 % (15.3-44.8); MCH 31.7 pg (27.0-35.0); MCV 96.5 fL (80-100); RBC Red Blood Cell Count 3.35 M/uL (3.86-4.86)
[2018-04-07 04:19] LABS: Magnesium 2.1 mg/dL (1.8-2.4); Phosphorus 2.2 mg/dL (2.5-4.9); Potassium 4.4 mmol/L (3.5-5.1); Uric Acid 7.4 mg/dL (2.6-6.0)
[2018-04-07] MEDS: LEVOTHYROXINE SOD 0.112 MG TAB PO SCH (06:00)
[2018-04-07] MEDS: INSULIN -REGULAR HUMAN 50 UNIT/0.5 ML ML SQ SCH ×4 (07:30→21:00)
[2018-04-07] MEDS: MAGIC MOUTHWASH 180 ML BTL PO SCH ×5 (09:00→21:52)
[2018-04-07] MEDS: TOPIRAMATE 100 MG TAB PO SCH ×2 (09:00→21:00)
[2018-04-07] MEDS: ASPIRIN EC 81 MG TAB PO SCH (09:00)
[2018-04-07] MEDS: GABAPENTIN 300 MG CAP PO SCH (09:00)
[2018-04-07] MEDS: CITALOPRAM 10 MG TABLET PO SCH (09:00)
[2018-04-07] MEDS: [UNRECOGNIZED DRUG - SUPPLY] PO SCH ×4 (09:00→21:00)
[2018-04-07] MEDS: GLUCERNA 1.5 CAL 1,000 ML BOT FT SCH ×4 (09:00→21:00)
[2018-04-07] MEDS: DULERA 200/5 (MOMETASONE/FORMOTEROL) INHALER IH SCH ×2 (10:22→21:51)
[2018-04-07] MEDS: ENOXAPARIN 30 MG/0.3 ML SQ SCH (10:33)
[2018-04-07] MEDS: PANTOPRAZOLE 40 MG INJ IVP SCH (10:33)
--- NOTE | 2018-04-07 11:15 | P.PN ---
Subjective Date of Service: 04/07/18 Primary Care Provider: Dr. Bacon; Onc.-Dr. Mchugh; GI-Dr. Caro; Rad-Dr. Pineda;Card-Dr. Pak Chief Complaint: Dyspnea, dysphagia Subjective: Doing well Physical Examination - Vital Signs Temperature: 96.8 F Blood Pressure: 131/63 Pulse: 74 Respirations: 18 Pulse Ox (%): 94 - Physical Exam General: Alert, In no apparent distress, Cooperative HEENT: Atraumatic Neck: Supple Respiratory: Clear to auscultation bilaterally, Normal air movement Cardiovascular: Normal pulses, Regular rate/rhythm Gastrointestinal: Normal bowel sounds, Soft and benign, Non-distended, No tenderness, No masses, No rebound, No guarding Musculoskeletal: No erythema, No tenderness, No warmth Integumentary: No erythema, No warmth, No cyanosis Neurological: Normal speech, Normal strength at 5/5 x4 extr, Normal tone, Normal affect Other Physical/Emotional Findings: Patient dozing off due to severe sleep apnea - Studies Medications List Reviewed: Yes Assessment & Plan - Problems (Diagnosis) (1) Dyspnea Onset Date: 04/07/18 Current Visit: Yes Status: Acute Plan: Patient with dyspnea likely from COPD and sleep apnea. Will maintain sats above 90%. Will continue with COPD medication. Will provide BiPAP as needed. Cardiology has cleared patient for PEG tube. Speech evaluation to recur today. Likely abnormal. If abnormal patient will have PEG tube placed tomorrow. Will discuss with patient. Anticipate discharge in the next 2-3 days. I will turn the service over to Dr. Prince tomorrow. I will go over the plan of care with her. Qualifiers: Dyspnea type: shortness of breath Qualified Code(s): R06.02 - Shortness of breath; R06.00 - Dyspnea, unspecified; R06.01 - Orthopnea (2) Dysphagia Onset Date: 04/07/18 Current Visit: Yes Status: Acute Plan: Patient with dysphagia and poor intake due to supraglottic carcinoma with mets to the right cervical region. Will order swallow evaluation with speech to confirm problems with swallowing. Case discussed with GI. If abnormal GI plans for PEG tomorrow. Patient cleared by cardiology. (3) COPD (chronic obstructive pulmonary disease) Onset Date: 04/07/18 Current Visit: Yes Status: Acute Plan: Patient with COPD. Will continue with her medication. Maintain sats above 90% Qualifiers: COPD type: chronic bronchitis Chronic bronchitis type: unspecified Qualified Code(s): J42 - Unspecified chronic bronchitis (4) Problems with swallowing Onset Date: 04/07/18 Current Visit: Yes Status: Acute Plan: Continue as above. Speech evaluation and barium swallow to be done today. GI plans for PEG tube tomorrow. Patient cleared by Cardiology to proceed. (5) Malnutrition Onset Date: 04/07/18 Current Visit: Yes Status: Acute Plan: Patient will get PEG tube tomorrow. Qualifiers: Malnutrition type: protein-calorie malnutrition Protein-calorie malnutrition severity: moderate Qualified Code(s): E44.0 - Moderate protein- calorie malnutrition (6) Chronic renal failure Onset Date: 04/07/18 Current Visit: Yes Status: Acute Plan: Continue with IV fluids. Nephrology consulted. Qualifiers: Chronic kidney disease stage: stage 3 (moderate) Qualified Code(s): N18.3 - Chronic kidney disease, stage 3 (moderate) (7) Cancer of supraglottis Onset Date: 04/07/18 Current Visit: Yes Status: Acute Plan: Patient has stage IV B supraglottic carcinoma with metastasis to the cervical lymph node. Patient seen by oncology and radiation oncology. Continue fentanyl patch. May need to hold if with increase sedation. Continue as above. (8) Metastatic disease Onset Date: 04/07/18 Current Visit: Yes Status: Acute Plan: Patient with metastatic disease to the cervical lymph node. (9) Hypertension Onset Date: 04/07/18 Current Visit: Yes Status: Chronic Plan: Continue with medication. Hold if blood pressure systolic less than 120 Qualifiers: Hypertension type: essential hypertension Qualified Code(s): I10 - Essential (primary) hypertension (10) CAD (coronary artery disease) Onset Date: 04/07/18 Current Visit: Yes Status: Chronic Plan: Cardiology has cleared the patient for PEG tube. Will continue to hold Plavix in preparation for PEG tube tomorrow. (11) PVD (peripheral vascular disease) Onset Date: 04/07/18 Current Visit: Yes Status: Chronic Plan: Patient with history of stent. Will hold Plavix in preparation for PEG tube. (12) Hyperlipidemia Onset Date: 04/07/18 Current Visit: Yes Status: Chronic Plan: Will continue with medication (13) Hypothyroidism Onset Date: 04/07/18 Current Visit: Yes Status: Chronic Plan: Continue with home medication Qualifiers: Hypothyroidism type: unspecified Qualified Code(s): E03.9 - Hypothyroidism , unspecified (14) Seizure disorder Onset Date: 04/07/18 Current Visit: Yes Status: Chronic Plan: Patient with history of seizure disorder but not taking any medication. Sister reports that she has not had a seizure in a long time. Will verify home medication (15) Diabetes mellitus Onset Date: 04/07/18 Current Visit: Yes Status: Chronic Plan: Continue sliding scale. Patient may require D5 normal saline if with hypoglycemia with difficulty swallowing and poor intake. Qualifiers: Diabetes mellitus type: type 2 Diabetes mellitus tester armature or fields insulin use: with halfway use Diabetes mellitus complication status: with unspecified complications Qualified Code(s): E11.8 - Type 2 diabetes mellitus with unspecified complications; Z79.4 - newborn hearing screener (current) use of insulin; Z79.4 - senior living (current) use of insulin; Z79.4 - newborn hearing screener (current) use of insulin; Z79.4 - newborn hearing screener (current) use of insulin (16) CORIE (obstructive sleep apnea) Onset Date: 04/07/18 Current Visit: Yes Status: Chronic Plan: Patient was severe sleep apnea. Pulmonology consulted. Patient may require BiPAP at night. Discharge Plan: Home Plan to discharge in: 48 Hours Time Spent Managing Pts Care (In Minutes): 55
--- NOTE | 2018-04-07 12:33 | ECHO ---
HEIGHT: 5 ft 2 in WEIGHT: 203 lb 4.8 oz DATE OF STUDY: 04/07/[address]: Hari Oconnor DO 2-DIMENSIONAL: YES M.MODE: YES DOPPLER: YES COLOR FLOW: YES TDS: NO PORTABLE: NO DEFINITY: NO BUBBLE STUDY: NO DIAGNOSIS: CHEST PAIN CARDIAC HISTORY: CATHERIZATION: NO SURGERY: NO PROSTHETIC VALVE: NO PACEMAKER: NO MEASUREMENTS (cm) DIASTOLIC (NORMALS) SYSTOLIC (NORMALS) IVSd 1.2 (0.6-1.2) LA Diam 4.2 (1.9-4.0) LVEF 55% LVIDd 4.0 (3.5-5.7) LVIDs 2.9 (2.0-3.5) %FS 28% LVPWd 1.3 (0.6-1.2) Ao Diam 2.6 (2.0-3.7) 2 DIMENSIONAL ASSESSMENT: RIGHT ATRIUM: NORMAL LEFT ATRIUM: DILATED RIGHT VENTRICLE: NORMAL LEFT VENTRICLE: LEFT VENTRICULAR HYPERTROPHY TRICUSPID VALVE: NORMAL MITRAL VALVE: NORMAL PULMONIC VALVE: NORMAL AORTIC VALVE: SCLEROSIS PERICARDIAL EFFUSION: NONE AORTIC ROOT: NORMAL LEFT VENTRICULAR WALL MOTION: NORMAL. DOPPLER/COLOR FLOW: MILD MITRAL AND TRICUSPID REGURGITATION. NORMAL RIGHT VENTRICULAR SYSTOLIC PRESSURE. NO SIGNIFICANT AORTIC STENOSIS OR AORTIC REGURGITATION. COMMENTS: NORMAL LEFT VENTRICULAR EJECTION FRACTION. DILATED LEFT ATRIUM. LEFT VENTRICULAR HYPERTROPHY. AORTIC SCLEROSIS WITH NO AORTIC STENOSIS/ AORTIC REGURGITATION. MILD MITRAL AND TRICUSPID REGURGITATION. TECHNOLOGIST: BETTY HIGHTOWER
--- NOTE | 2018-04-07 12:35 | RAD REPORT ---
EXAM DESCRIPTION: RAD - Barium Swallow Modified - 04/07/2018 10:05 am CLINICAL HISTORY: Dysphagia, coughing and choking, head and neck cancer. COMPARISON: None. TECHNIQUE: The patient was given liquid, semi-solid and solid forms of barium. Lateral view fluorosc opic imaging was performed in conjunction with speech pathology service. FINDINGS: Aspiration was observed with the thin and nectar forms of barium. Cough reflex was trigger ed. There was residual contrast in the valleculae and piriform sinuses. A total of 22 cine loop acquisitions were obtained. Cumulative dose was 21.96 mGy. Fluoro time was 3 minutes 15 seconds IMPRESSION: Modified barium swallow as detailed above and on speech pathology report.
[2018-04-07] MEDS: D5 0.45 NS 1,000 ML IV SCH (14:13)
[2018-04-07] MEDS ORDERED: CEFAZOLIN/SWI 1gm 1 GM/10 ML SYR IV SCH (14:45)
--- NOTE | 2018-04-07 20:11 | P.PN ---
Date of Service: 04/07/18 Vital Signs Temp Pulse Resp BP Pulse Ox 97.5 F 74 18 114/56 L 97 04/07/18 16:00 04/07/18 16:00 04/07/18 16:00 04/07/18 16:00 04/07/18 16:00 Medications Acetaminophen (Tylenol -Extra Strength) 500 mg PO Q4HP PRN PRN Reason: [id number] Stop: 05/04/18 16:24 Acetaminophen (Tylenol Suppository) 650 mg [place] Q6HP PRN PRN Reason: [id number] Stop: 05/04/18 16:24 Albuterol Sulfate (Proventil 0.083% Neb Soln) 2.5 mg NEB [id number] PRN PRN Reason: SHORTNESS OF BREATH Stop: 05/04/18 20:01 Last Admin: 04/05/18 19:46 Dose: 2.5 mg Aspirin (Aspirin Ec) 81 mg PO DAILY [facility] Stop: 05/05/18 09:01 Last Admin: 04/07/18 09:00 Dose: Not Given Citalopram Hydrobromide (Celexa) 40 mg PO DAILY [facility] Stop: 05/05/18 09:01 Last Admin: 04/07/18 09:00 Dose: Not Given Diphenhydr/Magaldrate/Simeth/Lidoca (Magic Mouthwash) 5 ml PO QID [facility] Stop: 05/05/18 13:01 Last Admin: 04/07/18 17:00 Dose: Not Given Enoxaparin Sodium (Lovenox 30 Mg Inj) 30 mg SQ DAILY [facility] Stop: 05/04/18 18:01 Last Admin: 04/07/18 10:33 Dose: 30 mg Enteral Nutritional Formula (Glucerna 1.5 Emmanuel) 237 ml FT QID [facility] Stop: 05/05/18 17:01 Last Admin: 04/07/18 17:00 Dose: Not Given Fentanyl (Duragesic Patch) 25 mcg TD EVERY 3RD DAY [facility] Stop: 05/06/18 09:01 Last Admin: 04/06/18 08:55 Dose: 25 mcg Gabapentin (Neurontin) 1,200 mg PO BEDTIME [facility] Stop: 05/05/18 21:01 Last Admin: 04/06/18 21:45 Dose: 1,200 mg Gabapentin (Neurontin) 600 mg PO DAILY [facility] Stop: 05/05/18 09:01 Last Admin: 04/07/18 09:00 Dose: Not Given Home Med (Gly/Carb Homopoly A/Pot Hydrox [Mugard Oral Wound Rinse]) 0 ml PO QID [facility] Stop: 05/05/18 13:01 Last Admin: 04/07/18 17:00 Dose: Not Given Dextrose/Sodium Chloride (Dextrose 5% O.45% Saline) 1,000 mls @ 50 mls/hr IV .Q20H [facility] Stop: 05/07/18 14:01 Last Admin: 04/07/18 14:13 Dose: 1,000 mls Cefazolin Sodium (Ancef 1 Gm/10 Ml Swi Ivp) 1 gm in 10 mls @ 600 mls/hr IV OC [facility] Stop: 05/07/18 14:46 Sodium Phosphate 20 mm/ Sodium (Chloride) 250 mls @ 83.333 mls/hr IV ONCE ONE Stop: 04/07/18 23:14 Insulin Human Regular (Novolin -R) 0 unit SQ ACHS [facility]; Protocol Stop: 05/04/18 16:31 Last Admin: 04/07/18 16:30 Dose: Not Given Ipratropium [place] (Atrovent Neb) 0.5 mg NEB [id number] PRN PRN Reason: SHORTNESS OF BREATH Stop: 05/04/18 20:01 Last Admin: 04/05/18 19:46 Dose: 0.5 mg Levothyroxine Sodium (Synthroid) 0.112 mg PO [id number] [facility] Stop: 05/06/18 06:01 Last Admin: 04/07/18 06:00 Dose: Not Given Ondansetron HCl (Zofran) 4 mg IV Q6HP PRN PRN Reason: NAUSEA / VOMITING Stop: 05/04/18 16:24 Pantoprazole Sodium (Protonix Inj) 40 mg IVP DAILY [facility] Stop: 05/05/18 09:01 Last Admin: 04/07/18 10:33 Dose: 40 mg Quetiapine Fumarate (Seroquel) 25 mg PO BEDTIME PRN PRN Reason: INSOMNIA Stop: 05/05/18 07:24 Last Admin: 04/06/18 21:43 Dose: 25 mg Sodium Chloride (Normal Saline Flush) 10 ml IV BID [facility] Stop: 05/04/18 21:01 Last Admin: 04/07/18 09:00 Dose: Not Given Sodium Chloride (Sodium Chloride 10 Ml Inj) 10 ml IV UD PRN PRN Reason: Diluant Stop: 05/04/18 16:24 Topiramate (Topamax) 100 mg PO BID [facility] Stop: 05/05/18 09:01 Last Admin: 04/07/18 09:00 Dose: Not Given Assessment/ Plan: Nephrology. Reports difficulty and pain with swallowing. CPS stable without CP or SOB. No acute events overnight. Vitals, medications, blood work and imaging reviewed in the chart. General: Alert, In no apparent distress, Cooperative, Confused HEENT: Atraumatic Neck: Other (Right mass) Respiratory: Clear to auscultation bilaterally Cardiovascular: Trace edema, Regular rate/rhythm, No rubs Gastrointestinal: Soft and benign, Non-distended, No guarding Musculoskeletal: No clubbing, No contractures Integumentary: No rashes, No cyanosis Neurological: Normal speech Laboratory Data (last 24 hrs) 04/04/18 14:06: Sodium 141, Potassium 4.4, BUN 46 H, Creatinine 2.20 H, Glucose 69 L, Total Bilirubin 0.5, AST 42 H, ALT 32, Alkaline Phosphatase 43 L 04/04/18 14:06: WBC 3.9 L, Hgb 11.6 L, Hct 35.1 L, Plt Count 201 Imagings Data: EXAM DESCRIPTION: RAD - Chest Single View - 04/05/2018 6:04 am CLINICAL HISTORY: follow up SOB Chest pain. COMPARISON: Chest Single View dated 08/10/2017; Chest Single View dated 2016; Chest Single View dated 07/09/2017 FINDINGS: Portable technique limits examination quality. The lungs are grossly clear. The patient's chin obscures portion of both lung apices. The heart is upper limit normal in size. Stent is present in the descending thoracic aorta. No displaced fractures.Degenerative changes are present both shoulders. IMPRESSION: No acute intrathoracic process suspected. Conclusions/Impression: A/ MARY in the setting of hypovolemia. CKD III. HTN with CKD. CORIE. DM II with CKD. Anemia in chronic illness. Leukocytopenia. Moderate malnutrition. HypoPO4. Hypermagnesemia. Chronic pain. No NSAIDs. P/ Continue current POC and Medications. Agree with gentle IVF. Give IV sodium phosp. Plan for PEG in AM. CPAP as needed. No NSAIDs. AM labs. Daily weight.
[2018-04-07] MEDS ORDERED: SODIUM PHOSPHATE 20 MM in NA CHLORIDE 0.9% 250 ML IV ONE (20:15)
[2018-04-07] MEDS: GABAPENTIN 400 MG CAP PO SCH (21:00)
[2018-04-08] MEDS: LEVOTHYROXINE SOD 0.112 MG TAB PO SCH (05:01)
[2018-04-08 05:32] LABS: Urine Appearance CLEAR; Urine Bilirubin NEGATIVE (NEG); Urine Blood NEGATIVE (NEG); Urine Color YELLOW; Urine Glucose NEGATIVE (NEG); Urine Protein NEGATIVE (NEG); Urine Specific Gravity 1.015 (1.005-1.030)
[2018-04-08 05:52] LABS: Urine Bacteria <20 /HPF (<20); Urine Culture Reflex Order NOT NEEDED; Urine RBC NONE SEEN /HPF (NONE SEEN)
[2018-04-08 06:01] LABS: Phosphorus 2.2 mg/dL (2.5-4.9); Potassium 4.6 mmol/L (3.5-5.1)
[2018-04-08 06:02] LABS: Absolute Lymphocytes (CBC) 0.2 K/uL (0.7-4.9); Absolute Monocytes 0.4 K/uL (0.1-1.3); Absolute Neutrophil 2.6 K/uL (1.8-8.0); Eosinophils % 2.4 % (0-4.4); Hematocrit 34.5 % (36.0-45.0); Lymphocytes % 5.8 % (15.3-44.8); MCH 31.9 pg (27.0-35.0); MCV 97.1 fL (80-100); MPV 9.6 fL (7.6-11.3); Monocytes % 12.3 % (3.3-12.3); RBC Red Blood Cell Count 3.56 M/uL (3.86-4.86)
[2018-04-08] MEDS: INSULIN -REGULAR HUMAN 50 UNIT/0.5 ML ML SQ SCH ×4 (07:30→21:00)
[2018-04-08] MEDS: PANTOPRAZOLE 40 MG INJ IVP SCH (08:02)
[2018-04-08] MEDS: GLUCERNA 1.5 CAL 1,000 ML BOT FT SCH ×4 (09:00→21:00)
[2018-04-08] MEDS: CITALOPRAM 10 MG TABLET PO SCH (09:00)
[2018-04-08] MEDS: ASPIRIN EC 81 MG TAB PO SCH (09:00)
[2018-04-08] MEDS: TOPIRAMATE 100 MG TAB PO SCH ×2 (09:00→21:00)
[2018-04-08] MEDS: MAGIC MOUTHWASH 180 ML BTL PO SCH ×5 (09:00→21:00)
[2018-04-08] MEDS: GABAPENTIN 300 MG CAP PO SCH (09:00)
[2018-04-08] MEDS: DULERA 200/5 (MOMETASONE/FORMOTEROL) INHALER IH SCH ×2 (10:07→22:08)
[2018-04-08] MEDS: D5 0.45 NS 1,000 ML IV SCH (10:07)
[2018-04-08] MEDS: [UNRECOGNIZED DRUG - SUPPLY] PO SCH ×4 (10:08→22:07)
[2018-04-08] MEDS ORDERED: CEFAZOLIN/NS 1gm 1 GM/50 ML BAG IVPB SCH (10:30)
[2018-04-08] MEDS ORDERED: PROPOFOL 200 MG/20 ML VIAL IV ONE (14:00)
[2018-04-08] MEDS ORDERED: LIDOCAINE 1% MPF 2 ML AMPULE ONE (14:01)
--- NOTE | 2018-04-08 17:12 | P.PN ---
Subjective Date of Service: 04/08/18 Primary Care Provider: Dr. Bacon; Onc.-Dr. Mchugh; GI-Dr. Caro; Rad-Dr. Pineda;Card-Dr. Pak Chief Complaint: Dyspnea, dysphagia Patient seen and examined at bedside with RN. Chart reviewed. Case discussed with GI. Currently patient is awaiting PEG tube placement today. No complaints to offer overnight. Denies having any nausea vomiting shortness of breath or any other complaints at this time. Review of Systems General: As per HPI Physical Examination - Vital Signs Temperature: 97.0 F Blood Pressure: 124/55 Pulse: 92 Respirations: 18 Pulse Ox (%): 92 - Physical Exam General: Alert, Oriented x3 HEENT: Atraumatic, Other (Neck Swelling on the right side.), EOMI Neck: Other (Swelling noted on the right side. 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 -Speech Evaluation done -Abnormal MBS -Pt scheduled for PEG tube today -Will F.u post procedure Qualifiers: Dysphagia type: unspecified Qualified Code(s): R13.10 - Dysphagia, unspecified (2) Dyspnea Onset Date: 04/07/18 Current Visit: Yes Status: Acute Plan: Most Likely 2.2 to COPD vs CORIE -Duonebs, Steroids and oxygen -BIPAP at night for CORIE Qualifiers: Dyspnea type: shortness of breath Qualified Code(s): R06.02 - Shortness of breath; R06.00 - Dyspnea, unspecified; R06.01 - Orthopnea (3) COPD (chronic obstructive pulmonary disease) Onset Date: 04/07/18 Current Visit: Yes Status: Acute Qualifiers: COPD type: chronic bronchitis Chronic bronchitis type: unspecified Qualified Code(s): J42 - Unspecified chronic bronchitis (4) Cancer of supraglottis Onset Date: 04/07/18 Current Visit: Yes Status: Acute (5) Chronic renal failure Onset Date: 04/07/18 Current Visit: Yes Status: Acute Qualifiers: Chronic kidney disease stage: stage 3 (moderate) Qualified Code(s): N18.3 - Chronic kidney disease, stage 3 (moderate) (6) Metastatic disease Onset Date: 04/07/18 Current Visit: Yes Status: Acute (7) CAD (coronary artery disease) Onset Date: 04/07/18 Current Visit: Yes Status: Chronic (8) Diabetes mellitus Onset Date: 04/07/18 Current Visit: Yes Status: Chronic Qualifiers: Diabetes mellitus type: type 2 Diabetes mellitus terminal carman insulin use: with terminal carman use Diabetes mellitus complication status: with unspecified complications Qualified Code(s): E11.8 - Type 2 diabetes mellitus with unspecified complications; Z79.4 - jail (current) use of insulin; Z79.4 - jail (current) use of insulin; Z79.4 - intermediate frame tender (current) use of insulin; Z79.4 - jail (current) use of insulin (9) Hyperlipidemia Onset Date: 04/07/18 Current Visit: Yes Status: Chronic (10) Hypertension Onset Date: 04/07/18 Current Visit: Yes Status: Chronic Qualifiers: Hypertension type: essential hypertension Qualified Code(s): I10 - Essential (primary) hypertension (11) Hypothyroidism Onset Date: 04/07/18 Current Visit: Yes Status: Chronic Qualifiers: Hypothyroidism type: unspecified Qualified Code(s): E03.9 - Hypothyroidism , unspecified (12) CORIE (obstructive sleep apnea) Onset Date: 04/07/18 Current Visit: Yes Status: Chronic (13) PVD (peripheral vascular disease) Onset Date: 04/07/18 Current Visit: Yes Status: Chronic (14) Seizure disorder Onset Date: 04/07/18 Current Visit: Yes Status: Chronic (15) Obesity Onset Date: 08/12/17 Current Visit: No Status: Acute Qualifiers: Obesity type: due to excess calories Obesity classification: unspecified obesity classification Serious obesity comorbidity presence: unspecified whether serious comorbidity present Qualified Code(s): E66.09 - Other obesity due to excess calories Discharge Plan: Other Plan to discharge in: 48 Hours - Code Status/Comfort Care Code Status Assessed: Yes Critical Care: No
[2018-04-08] MEDS: ENOXAPARIN 30 MG/0.3 ML SQ SCH (17:57)
[2018-04-08] MEDS: GABAPENTIN 400 MG CAP PO SCH (21:00)
--- NOTE | 2018-04-08 21:02 | P.PN ---
Date of Service: 04/08/18 Vital Signs Temp Pulse Resp BP Pulse Ox 97.9 F 96 H 16 115/60 97 04/08/18 20:00 04/08/18 20:00 04/08/18 20:00 04/08/18 20:00 04/08/18 20:00 Medications Acetaminophen (Tylenol -Extra Strength) 500 mg PO Q4HP PRN PRN Reason: [id number] Stop: 05/04/18 16:24 Acetaminophen (Tylenol Suppository) 650 mg AL Q6HP PRN PRN Reason: [id number] Stop: 05/04/18 16:24 Albuterol Sulfate (Proventil 0.083% Neb Soln) 2.5 mg NEB [id number] PRN PRN Reason: SHORTNESS OF BREATH Stop: 05/04/18 20:01 Last Admin: 04/05/18 19:46 Dose: 2.5 mg Aspirin (Aspirin Ec) 81 mg PO DAILY [facility] Stop: 05/05/18 09:01 Last Admin: 04/08/18 09:00 Dose: Not Given Citalopram Hydrobromide (Celexa) 40 mg PO DAILY [facility] Stop: 05/05/18 09:01 Last Admin: 04/08/18 09:00 Dose: Not Given Diphenhydr/Magaldrate/Simeth/Lidoca (Magic Mouthwash) 5 ml PO QID [facility] Stop: 05/05/18 13:01 Last Admin: 04/08/18 20:01 Dose: 5 ml Enoxaparin Sodium (Lovenox 30 Mg Inj) 30 mg SQ DAILY [facility] Stop: 05/04/18 18:01 Last Admin: 04/08/18 17:57 Dose: 30 mg Enteral Nutritional Formula (Glucerna 1.5 Emmanuel) 237 ml FT QID [facility] Stop: 05/05/18 17:01 Last Admin: 04/08/18 17:00 Dose: Not Given Fentanyl (Duragesic Patch) 25 mcg TD EVERY 3RD DAY [facility] Stop: 05/06/18 09:01 Last Admin: 04/06/18 08:55 Dose: 25 mcg Gabapentin (Neurontin) 1,200 mg PO BEDTIME [facility] Stop: 05/05/18 21:01 Last Admin: 04/07/18 21:00 Dose: Not Given Gabapentin (Neurontin) 600 mg PO DAILY [facility] Stop: 05/05/18 09:01 Last Admin: 04/08/18 09:00 Dose: Not Given Home Med (Gly/Carb Homopoly A/Pot Hydrox [Mugard Oral Wound Rinse]) 0 ml PO QID [facility] Stop: 05/05/18 13:01 Last Admin: 04/08/18 17:57 Dose: 10 ml Dextrose/Sodium Chloride (Dextrose 5% O.45% Saline) 1,000 mls @ 50 mls/hr IV .Q20H [facility] Stop: 05/07/18 14:01 Last Admin: 04/08/18 10:07 Dose: 1,000 mls Cefazolin Sodium (Ancef 1 Gm/10 Ml Swi Ivp) 1 gm in 10 mls @ 600 mls/hr IV OC [facility] Stop: 05/07/18 14:46 Last Admin: 04/08/18 14:08 Dose: 10 mls Insulin Human Regular (Novolin -R) 0 unit SQ ACHS [facility]; Protocol Stop: 05/04/18 16:31 Last Admin: 04/08/18 16:30 Dose: Not Given Ipratropium [place] (Atrovent Neb) 0.5 mg NEB [id number] PRN PRN Reason: SHORTNESS OF BREATH Stop: 05/04/18 20:01 Last Admin: 04/05/18 19:46 Dose: 0.5 mg Levothyroxine Sodium (Synthroid) 0.112 mg PO [id number] [facility] Stop: 05/06/18 06:01 Last Admin: 04/08/18 05:01 Dose: Not Given Ondansetron HCl (Zofran) 4 mg IV Q6HP PRN PRN Reason: NAUSEA / VOMITING Stop: 05/04/18 16:24 Last Admin: 04/08/18 16:11 Dose: 4 mg Pantoprazole Sodium (Protonix Inj) 40 mg IVP DAILY [facility] Stop: 05/05/18 09:01 Last Admin: 04/08/18 08:02 Dose: 40 mg Quetiapine Fumarate (Seroquel) 25 mg PO BEDTIME PRN PRN Reason: INSOMNIA Stop: 05/05/18 07:24 Last Admin: 04/06/18 21:43 Dose: 25 mg Sodium Chloride (Normal Saline Flush) 10 ml IV BID [facility] Stop: 05/04/18 21:01 Last Admin: 04/08/18 08:02 Dose: 10 ml Sodium Chloride (Sodium Chloride 10 Ml Inj) 10 ml IV UD PRN PRN Reason: Diluant Stop: 05/04/18 16:24 Topiramate (Topamax) 100 mg PO BID [facility] Stop: 05/05/18 09:01 Last Admin: 04/08/18 09:00 Dose: Not Given Assessment/ Plan: Nephrology. Reports difficulty and pain with swallowing. CPS stable without CP or SOB. No acute events overnight. Vitals, medications, blood work and imaging reviewed in the chart. General: Alert, In no apparent distress, Cooperative HEENT: Atraumatic Neck: Other (Right mass) Respiratory: Clear to auscultation bilaterally Cardiovascular: Trace edema, Regular rate/rhythm, No rubs Gastrointestinal: Soft and benign, Non-distended, No guarding Musculoskeletal: No clubbing, No contractures Integumentary: No rashes, No cyanosis Neurological: Normal speech Laboratory Data (last 24 hrs) 04/04/18 14:06: Sodium 141, Potassium 4.4, BUN 46 H, Creatinine 2.20 H, Glucose 69 L, Total Bilirubin 0.5, AST 42 H, ALT 32, Alkaline Phosphatase 43 L 04/04/18 14:06: WBC 3.9 L, Hgb 11.6 L, Hct 35.1 L, Plt Count 201 Imagings Data: EXAM DESCRIPTION: RAD - Chest Single View - 04/05/2018 6:04 am CLINICAL HISTORY: follow up SOB Chest pain. COMPARISON: Chest Single View dated 08/10/2017; Chest Single View dated 2016; Chest Single View dated 07/09/2017 FINDINGS: Portable technique limits examination quality. The lungs are grossly clear. The patient's chin obscures portion of both lung apices. The heart is upper limit normal in size. Stent is present in the descending thoracic aorta. No displaced fractures.Degenerative changes are present both shoulders. IMPRESSION: No acute intrathoracic process suspected. Conclusions/Impression: A/ MARY in the setting of hypovolemia. CKD III. HTN with CKD. CORIE. DM II with CKD. Anemia in chronic illness. Leukocytopenia. Moderate malnutrition. HypoPO4. Hypermagnesemia. Chronic pain. No NSAIDs. P/ Continue current POC and Medications. Continue gentle IVF but discontinue once TF started. Replete phosphorus. Plan for PEG today. CPAP as needed. No NSAIDs. AM labs. Daily weight.
--- NOTE | 2018-04-09 01:59 | OP ---
Surgeon: Lorenzo Barrios MD Procedure Performed: Esophagogastroduodenoscopy with PEG placement. Indication For Procedure: Failure to thrive, odynophagia, dysphagia. Plan For Anesthesia: Monitored anesthesia care. Complexity: High due to it being invasive procedure and the patient's comorbid conditions. Technique: After obtaining informed consent from the patient and explaining risks and complications, which include, but are not limited to bleeding, infection, perforation, and anesthesia complication, the patient was placed in a supine position and sedation was given. From then on, the scope was adv anced to the mouth and carefully guided up to the second portion of the duodenum. After the completi on of the examination, PEG tube was placed, and the procedure terminated in a safe manner. Findings: Oropharynx: Multiple ulcers seen in the oropharyngeal area above the esophagus, probably a consequence of radiation. The esophagus itself appeared normal without any ulcers, any evidence of Magda or esophagitis. Stomach: Very mild patchy erythema seen in the antrum. Duodenum: The bulb and second portion appeared normal. Subsequently in the body of the stomach, a g ood area was found to place a PEG tube. This was confirmed with both transillumination and one-to-on e pressure. Then, under aseptic precautions, a 20-[employer] PEG tube was placed after locally anesthetizing the area. This was done with a pull guidewire technique. External bumper was at 4.5 cm which seems to be appropriate given her abdominal wall fat. Placement of the tube was con firmed with repeat endoscopy. Complications: None. Tolerance To Anesthesia: Excellent. Postoperative Diagnoses: Oral ulcers, mild gastritis, status post PEG placement. Plan: Continue current management. ENT evaluation for the ulcers in the mouth if needed. N.p.o. un til tomorrow. Then, after consultation with nutrition, start feeding at 20 cc/hour and advance as to lerated. Keep head of bed elevated to 45 degrees. Keep abdominal binder in place. Recall GI if nee ded. US/MODL Voice ID: [id number] Report ID: [id number]
[2018-04-09 04:11] LABS: Absolute Lymphocytes (CBC) 0.2 K/uL (0.7-4.9); Absolute Monocytes 0.4 K/uL (0.1-1.3); Eosinophils % 3.1 % (0-4.4); Hematocrit 33.7 % (36.0-45.0); Lymphocytes % 8.3 % (15.3-44.8); MCH 31.3 pg (27.0-35.0); MCV 95.8 fL (80-100); MPV 9.3 fL (7.6-11.3); Monocytes % 14.9 % (3.3-12.3); RBC Red Blood Cell Count 3.52 M/uL (3.86-4.86)
[2018-04-09 04:27] LABS: Magnesium 1.8 mg/dL (1.8-2.4); Phosphorus 2.4 mg/dL (2.5-4.9); Potassium 4.5 mmol/L (3.5-5.1); Uric Acid 7.1 mg/dL (2.6-6.0)
[2018-04-09] MEDS ORDERED: MAGNESIUM SULFATE 1 gm IVPB 1 GM/100 ML BAG IV ONE (04:30)
[2018-04-09 04:41] LABS: Anisocytosis 1+; Blood Morphology Comment NOTED (NOT SEEN); Platelet Estimate ADEQ; Urine White Blood Cell Casts OK
[2018-04-09] MEDS: LEVOTHYROXINE SOD 0.112 MG TAB PO SCH (06:00)
[2018-04-09] MEDS: D5 0.45 NS 1,000 ML IV SCH (06:19)
[2018-04-09] MEDS: INSULIN -REGULAR HUMAN 50 UNIT/0.5 ML ML SQ SCH ×4 (07:30→18:00)
[2018-04-09] MEDS: ASPIRIN EC 81 MG TAB PO SCH (09:00)
[2018-04-09] MEDS: MAGIC MOUTHWASH 180 ML BTL PO SCH ×4 (09:00→21:35)
[2018-04-09] MEDS: DULERA 200/5 (MOMETASONE/FORMOTEROL) INHALER IH SCH ×2 (10:12→21:36)
[2018-04-09] MEDS: [UNRECOGNIZED DRUG - SUPPLY] PO SCH ×4 (10:13→21:35)
[2018-04-09] MEDS: TOPIRAMATE 100 MG TAB PO SCH ×2 (10:14→21:45)
[2018-04-09] MEDS: ENOXAPARIN 30 MG/0.3 ML SQ SCH (10:14)
[2018-04-09] MEDS: FENTANYL 25 MCG/PATCH TD SCH (10:14)
[2018-04-09] MEDS: PANTOPRAZOLE 40 MG INJ IVP SCH (10:14)
[2018-04-09] MEDS: CITALOPRAM 10 MG TABLET PO SCH (10:15)
[2018-04-09] MEDS: GABAPENTIN 300 MG CAP PO SCH (10:15)
[2018-04-09] MEDS: ASPIRIN 81 MG CHEWABLE TABLET PO SCH (11:19)
[2018-04-09] MEDS: GLUCERNA 1.5 CAL 1,000 ML BOT FT SCH ×4 (11:19→21:45)
[2018-04-09 11:49] LABS: Immunoglobulin A 79 mg/dL (81-463); Immunoglobulin G 760 mg/dL (694-1618); Immunoglobulin M 68 mg/dL (48-271)
--- NOTE | 2018-04-09 13:42 | P.PN ---
Subjective Date of Service: 04/09/18 Primary Care Provider: Dr. Bacon; Onc.-Dr. Mchugh; GI-Dr. Caro; Rad-Dr. Pineda;Card-Dr. Pak Chief Complaint: Dyspnea, dysphagia Patient seen and examined at bedside with RN. Chart reviewed. Case discussed with GI. S.P PEG tube placement POD#1 No complaints to offer overnight. Denies having any nausea vomiting shortness of breath or any other complaints at this time. Review of Systems General: As per HPI Physical Examination - Vital Signs Temperature: 97.5 F Blood Pressure: 125/58 Pulse: 76 Respirations: 16 Pulse Ox (%): 95 - Physical Exam General: Alert, In no apparent distress HEENT: Atraumatic Neck: Supple, Other (Neck Mass and oral Ulcers noted on the right side. ) Respiratory: Clear to auscultation bilaterally, Normal air movement Cardiovascular: Regular rate/rhythm, Normal S1 S2 Gastrointestinal: Normal bowel sounds, No tenderness Musculoskeletal: No tenderness Integumentary: No rashes Neurological: Normal speech, Normal tone, Normal affect Lymphatics: No axilla or inguinal lymphadenopathy Other Physical/Emotional Findings: Patient dozing off due to severe sleep apnea - Studies Medications List Reviewed: Yes Assessment & Plan - Problems (Diagnosis) (1) Dysphagia Onset Date: 04/07/18 Current Visit: Yes Status: Acute Plan: Dysphagia most likely 2.2 to Supraglotic carcinoma -S/P PEG tube placement POD# 1 -Awaiting Dietary reccs for further Nutritional Support -OP ENT consult for Oral Ulcers Qualifiers: Dysphagia type: unspecified Qualified Code(s): R13.10 - Dysphagia, unspecified (2) Dyspnea Onset Date: 04/07/18 Current Visit: Yes Status: Acute Plan: Most Likely 2.2 to COPD vs CORIE -Duonebs, Steroids and oxygen -BIPAP at night for CORIE -Improved now Qualifiers: Dyspnea type: shortness of breath Qualified Code(s): R06.02 - Shortness of breath; R06.00 - Dyspnea, unspecified; R06.01 - Orthopnea (3) Chronic renal failure Onset Date: 04/07/18 Current Visit: Yes Status: Chronic Plan: Most Likely 2.2 to dehydration due to Poor PO intake -IV fluids and improving today Qualifiers: Chronic kidney disease stage: stage 3 (moderate) Qualified Code(s): N18.3 - Chronic kidney disease, stage 3 (moderate) (4) COPD (chronic obstructive pulmonary disease) Onset Date: 04/07/18 Current Visit: Yes Status: Chronic Qualifiers: COPD type: chronic bronchitis Chronic bronchitis type: unspecified Qualified Code(s): J42 - Unspecified chronic bronchitis (5) Cancer of supraglottis Onset Date: 04/07/18 Current Visit: Yes Status: Chronic (6) Metastatic disease Onset Date: 04/07/18 Current Visit: Yes Status: Chronic (7) CAD (coronary artery disease) Onset Date: 04/07/18 Current Visit: Yes Status: Chronic Qualifiers: Coronary Disease-Associated Artery/Lesion type: [place] artery [place] vs. transplanted heart: [place] heart Associated angina: without angina Qualified Code(s): I25.10 - Atherosclerotic heart disease of [place] coronary artery without angina pectoris (8) Diabetes mellitus Onset Date: 04/07/18 Current Visit: Yes Status: Chronic Qualifiers: Diabetes mellitus type: type 2 Diabetes mellitus nursing home insulin use: with nursing home use Diabetes mellitus complication status: with unspecified complications Qualified Code(s): E11.8 - Type 2 diabetes mellitus with unspecified complications; Z79.4 - group home (current) use of insulin; Z79.4 - group home (current) use of insulin; Z79.4 - group home (current) use of insulin; Z79.4 - group home (current) use of insulin (9) Hyperlipidemia Onset Date: 04/07/18 Current Visit: Yes Status: Chronic Qualifiers: Hyperlipidemia type: mixed hyperlipidemia Qualified Code(s): E78.2 - Mixed hyperlipidemia (10) Hypertension Onset Date: 04/07/18 Current Visit: Yes Status: Chronic Qualifiers: Hypertension type: essential hypertension Qualified Code(s): I10 - Essential (primary) hypertension (11) Hypothyroidism Onset Date: 04/07/18 Current Visit: Yes Status: Chronic Qualifiers: Hypothyroidism type: acquired Qualified Code(s): E03.9 - Hypothyroidism, unspecified (12) CORIE (obstructive sleep apnea) Onset Date: 04/07/18 Current Visit: Yes Status: Chronic (13) PVD (peripheral vascular disease) Onset Date: 04/07/18 Current Visit: Yes Status: Chronic (14) Seizure disorder Onset Date: 04/07/18 Current Visit: Yes Status: Chronic (15) Obesity Onset Date: 08/12/17 Current Visit: No Status: Acute Qualifiers: Obesity type: due to excess calories Obesity classification: unspecified obesity classification Serious obesity comorbidity presence: unspecified whether serious comorbidity present Qualified Code(s): E66.09 - Other obesity due to excess calories Discharge Plan: Home Plan to discharge in: 48 Hours - Code Status/Comfort Care Code Status Assessed: Yes Critical Care: No
[2018-04-09] MEDS ORDERED: D50W 25 GM/50 ML SYRINGE IV PRN (17:06)
[2018-04-09] MEDS ORDERED: GLUCAGON 1 MG/VIAL IM PRN (17:06)
--- NOTE | 2018-04-09 18:58 | P.PN ---
Date of Service: 04/09/18 Vital Signs Temp Pulse Resp BP Pulse Ox 97.7 F 76 16 126/57 L 96 04/09/18 16:00 04/09/18 16:00 04/09/18 16:00 04/09/18 16:00 04/09/18 16:00 Medications Acetaminophen (Tylenol -Extra Strength) 500 mg PO Q4HP PRN PRN Reason: [id number] Stop: 05/04/18 16:24 Albuterol Sulfate (Proventil 0.083% Neb Soln) 2.5 mg NEB [id number] PRN PRN Reason: SHORTNESS OF BREATH Stop: 05/04/18 20:01 Last Admin: 04/05/18 19:46 Dose: 2.5 mg Aspirin (Aspirin Chewable) 81 mg PO DAILY [facility] Stop: 05/10/18 09:01 Last Admin: 04/09/18 11:19 Dose: 81 mg Citalopram Hydrobromide (Celexa) 40 mg PO DAILY [facility] Stop: 05/05/18 09:01 Last Admin: 04/09/18 10:15 Dose: 40 mg Dextrose (Dextrose 50% Syringe) 12.5 gm IV PRN PRN; Protocol PRN Reason: HYPOGLYCEMIA Stop: 05/09/18 17:07 Diphenhydr/Magaldrate/Simeth/Lidoca (Magic Mouthwash) 5 ml PO QID [facility] Stop: 05/05/18 13:01 Last Admin: 04/09/18 09:00 Dose: 5 ml Enoxaparin Sodium (Lovenox 30 Mg Inj) 30 mg SQ DAILY [facility] Stop: 05/04/18 18:01 Last Admin: 04/09/18 10:14 Dose: 30 mg Enteral Nutritional Formula (Glucerna 1.5 Emmanuel) 237 ml FT QID [facility] Stop: 05/05/18 17:01 Last Admin: 04/09/18 13:00 Dose: Not Given Fentanyl (Duragesic Patch) 25 mcg TD EVERY 3RD DAY [facility] Stop: 05/06/18 09:01 Last Admin: 04/09/18 10:14 Dose: 25 mcg Gabapentin (Neurontin) 1,200 mg PO BEDTIME [facility] Stop: 05/05/18 21:01 Last Admin: 04/08/18 21:00 Dose: Not Given Gabapentin (Neurontin) 600 mg PO DAILY [facility] Stop: 05/05/18 09:01 Last Admin: 04/09/18 10:15 Dose: 600 mg Glucagon (Glucagen) 1 mg IM 1X PRN; Protocol PRN Reason: HYPOGLYCEMIA Stop: 05/09/18 17:07 Home Med (Gly/Carb Homopoly A/Pot Hydrox [Mugard Oral Wound Rinse]) 0 ml PO QID [facility] Stop: 05/05/18 13:01 Last Admin: 04/09/18 10:13 Dose: 10 ml Dextrose/Sodium Chloride (Dextrose 5% O.45% Saline) 1,000 mls @ 50 mls/hr IV .Q20H [facility] Stop: 05/07/18 14:01 Last Admin: 04/09/18 06:19 Dose: 1,000 mls Cefazolin Sodium (Ancef 1 Gm/10 Ml Swi Ivp) 1 gm in 10 mls @ 600 mls/hr IV OC [facility] Stop: 05/07/18 14:46 Last Admin: 04/08/18 14:08 Dose: 10 mls Insulin Human Regular (Novolin -R) 0 unit SQ Q6HR [facility]; Protocol Stop: 05/09/18 18:01 Ipratropium [place] (Atrovent Neb) 0.5 mg NEB [id number] PRN PRN Reason: SHORTNESS OF BREATH Stop: 05/04/18 20:01 Last Admin: 04/05/18 19:46 Dose: 0.5 mg Levothyroxine Sodium (Synthroid) 0.112 mg PO [id number] [facility] Stop: 05/06/18 06:01 Last Admin: 04/09/18 06:00 Dose: Not Given Ondansetron HCl (Zofran) 4 mg IV Q6HP PRN PRN Reason: NAUSEA / VOMITING Stop: 05/04/18 16:24 Last Admin: 04/08/18 16:11 Dose: 4 mg Pantoprazole Sodium (Protonix Inj) 40 mg IVP DAILY [facility] Stop: 05/05/18 09:01 Last Admin: 04/09/18 10:14 Dose: 40 mg Quetiapine Fumarate (Seroquel) 25 mg PO BEDTIME PRN PRN Reason: INSOMNIA Stop: 05/05/18 07:24 Last Admin: 04/06/18 21:43 Dose: 25 mg Sodium Chloride (Normal Saline Flush) 10 ml IV BID [facility] Stop: 05/04/18 21:01 Last Admin: 04/09/18 10:16 Dose: 10 ml Sodium Chloride (Sodium Chloride 10 Ml Inj) 10 ml IV UD PRN PRN Reason: Diluant Stop: 05/04/18 16:24 Topiramate (Topamax) 100 mg PO BID [facility] Stop: 05/05/18 09:01 Last Admin: 04/09/18 10:14 Dose: 100 mg Assessment/ Plan: Nephrology. Reports difficulty and pain with swallowing. CPS stable without CP or SOB. No acute events overnight. Vitals, medications, blood work and imaging reviewed in the chart. General: Alert, In no apparent distress, Cooperative HEENT: Atraumatic Neck: Other (Right mass) Respiratory: Clear to auscultation bilaterally Cardiovascular: Trace edema, Regular rate/rhythm, No rubs Gastrointestinal: Soft and benign, Non-distended, No guarding Musculoskeletal: No clubbing, No contractures Integumentary: No rashes, No cyanosis Neurological: Normal speech Laboratory Data (last 24 hrs) 04/04/18 14:06: Sodium 141, Potassium 4.4, BUN 46 H, Creatinine 2.20 H, Glucose 69 L, Total Bilirubin 0.5, AST 42 H, ALT 32, Alkaline Phosphatase 43 L 04/04/18 14:06: WBC 3.9 L, Hgb 11.6 L, Hct 35.1 L, Plt Count 201 Imagings Data: EXAM DESCRIPTION: RAD - Chest Single View - 04/05/2018 6:04 am CLINICAL HISTORY: follow up SOB Chest pain. COMPARISON: Chest Single View dated 08/10/2017; Chest Single View dated 2016; Chest Single View dated 07/09/2017 FINDINGS: Portable technique limits examination quality. The lungs are grossly clear. The patient's chin obscures portion of both lung apices. The heart is upper limit normal in size. Stent is present in the descending thoracic aorta. No displaced fractures.Degenerative changes are present both shoulders. IMPRESSION: No acute intrathoracic process suspected. Conclusions/Impression: A/ MARY in the setting of hypovolemia. CKD III. HTN with CKD. CORIE. DM II with CKD. Anemia in chronic illness. Leukocytopenia. Moderate malnutrition. HypoPO4. Hypermagnesemia. Chronic pain. No NSAIDs. P/ Continue current POC and Medications. Continue gentle IVF but discontinue once TF started. Start TF GIUSEPPE. Replete phosphorus. CPAP as needed. No NSAIDs. AM labs. Daily weight.
[2018-04-09] MEDS: GABAPENTIN 400 MG CAP PO SCH (21:36)
[2018-04-09] MEDS: QUETIAPINE 25 MG TAB PO PRN (21:36)
[2018-04-09 22:17] LABS: Alpha-1-Globulins 0.5 g/dL (0.2-0.3); Alpha-2-Globulins 0.8 g/dL (0.5-0.9); Gamma Globulins 0.6 g/dL (0.8-1.7); INTERPRETATION Consistent with
[2018-04-10] MEDS: D5 0.45 NS 1,000 ML IV SCH ×3 (02:00→21:20)
[2018-04-10] MEDS: LEVOTHYROXINE SOD 0.112 MG TAB PO SCH (05:28)
[2018-04-10] MEDS: INSULIN -REGULAR HUMAN 50 UNIT/0.5 ML ML SQ SCH ×4 (06:00→18:00)
[2018-04-10 06:14] LABS: Magnesium 2.1 mg/dL (1.8-2.4); Phosphorus 2.3 mg/dL (2.5-4.9); Potassium 4.6 mmol/L (3.5-5.1)
[2018-04-10] MEDS: TOPIRAMATE 100 MG TAB PO SCH ×2 (09:43→21:17)
[2018-04-10] MEDS: CITALOPRAM 10 MG TABLET PO SCH (09:43)
[2018-04-10] MEDS: GABAPENTIN 300 MG CAP PO SCH (09:43)
[2018-04-10] MEDS: ASPIRIN 81 MG CHEWABLE TABLET PO SCH (09:43)
[2018-04-10] MEDS: PANTOPRAZOLE 40 MG INJ IVP SCH (09:44)
[2018-04-10] MEDS: [UNRECOGNIZED DRUG - SUPPLY] PO SCH ×4 (09:44→21:00)
[2018-04-10] MEDS: DULERA 200/5 (MOMETASONE/FORMOTEROL) INHALER IH SCH ×2 (09:44→21:15)
[2018-04-10] MEDS: ENOXAPARIN 30 MG/0.3 ML SQ SCH (09:44)
[2018-04-10] MEDS: GLUCERNA 1.5 CAL 1,000 ML BOT FT SCH ×4 (10:23→21:21)
[2018-04-10] MEDS: MAGIC MOUTHWASH 180 ML BTL PO SCH ×4 (10:26→21:17)
--- NOTE | 2018-04-10 11:51 | P.PN ---
Subjective Date of Service: 04/10/18 Primary Care Provider: Dr. Bacon; Onc.-Dr. Mchugh; GI-Dr. Caro; Rad-Dr. Pineda;Card-Dr. Pak Chief Complaint: Dyspnea, dysphagia Patient seen and examined at bedside with RN. Chart reviewed. Case discussed with GI. S.P PEG tube placement POD#2 No complaints to offer overnight. This AM however appears sleepy and lethargic. Has not been compliant with her CPAP at night. ABG ordered Review of Systems General: As per HPI Physical Examination - Vital Signs Temperature: 97.2 F Blood Pressure: 126/59 Pulse: 75 Respirations: 12 Pulse Ox (%): 91 - Physical Exam General: Alert, Oriented x2, Other (Lethargic ) HEENT: Atraumatic Neck: Supple, Other (Neck Mass on the right noted again ) Respiratory: Normal air movement, Expiratory wheezes, Inspiratory wheezes Cardiovascular: Regular rate/rhythm, Normal S1 S2 Gastrointestinal: Normal bowel sounds, Soft and benign, Non-distended, No tenderness, Other (PEG tube in place ) Musculoskeletal: No tenderness Integumentary: No rashes Neurological: Normal speech, Normal tone, Normal affect Lymphatics: No axilla or inguinal lymphadenopathy Other Physical/Emotional Findings: Patient dozing off due to severe sleep apnea - Studies Medications List Reviewed: Yes Assessment & Plan - Problems (Diagnosis) (1) Dysphagia Onset Date: 04/07/18 Current Visit: Yes Status: Acute Plan: Dysphagia 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 -Consult placed for HH for FT -OP ENT consult for Oral Ulcers Qualifiers: Dysphagia type: unspecified Qualified Code(s): R13.10 - Dysphagia, unspecified (2) Dyspnea Onset Date: 04/07/18 Current Visit: Yes Status: Acute Plan: Most Likely 2.2 to COPD vs CORIE. Currently with Acute hypercapnic Respiratory Distress -Duonebs, Steroids and oxygen -BIPAP for now Qualifiers: Dyspnea type: shortness of breath Qualified Code(s): R06.02 - Shortness of breath; R06.00 - Dyspnea, unspecified; R06.01 - Orthopnea (3) Chronic renal failure Onset Date: 04/07/18 Current Visit: Yes Status: Chronic Plan: Most Likely 2.2 to dehydration due to Poor PO intake -IV fluids and improving today Qualifiers: Chronic kidney disease stage: stage 3 (moderate) Qualified Code(s): N18.3 - Chronic kidney disease, stage 3 (moderate) (4) COPD (chronic obstructive pulmonary disease) Onset Date: 04/07/18 Current Visit: Yes Status: Chronic Qualifiers: COPD type: chronic bronchitis Chronic bronchitis type: unspecified Qualified Code(s): J42 - Unspecified chronic bronchitis (5) Cancer of supraglottis Onset Date: 04/07/18 Current Visit: Yes Status: Chronic (6) Metastatic disease Onset Date: 04/07/18 Current Visit: Yes Status: Chronic (7) CAD (coronary artery disease) Onset Date: 04/07/18 Current Visit: Yes Status: Chronic Qualifiers: Coronary Disease-Associated Artery/Lesion type: [place] artery [place] vs. transplanted heart: [place] heart Associated angina: without angina Qualified Code(s): I25.10 - Atherosclerotic heart disease of [place] coronary artery without angina pectoris (8) Diabetes mellitus Onset Date: 04/07/18 Current Visit: Yes Status: Chronic Qualifiers: Diabetes mellitus type: type 2 Diabetes mellitus care home insulin use: with care home use Diabetes mellitus complication status: with unspecified complications Qualified Code(s): E11.8 - Type 2 diabetes mellitus with unspecified complications; Z79.4 - USP (current) use of insulin; Z79.4 - USP (current) use of insulin; Z79.4 - superintendent [employer] (current) use of insulin; Z79.4 - USP (current) use of insulin (9) Hyperlipidemia Onset Date: 04/07/18 Current Visit: Yes Status: Chronic Qualifiers: Hyperlipidemia type: mixed hyperlipidemia Qualified Code(s): E78.2 - Mixed hyperlipidemia (10) Hypertension Onset Date: 04/07/18 Current Visit: Yes Status: Chronic Qualifiers: Hypertension type: essential hypertension Qualified Code(s): I10 - Essential (primary) hypertension (11) Hypothyroidism Onset Date: 04/07/18 Current Visit: Yes Status: Chronic Qualifiers: Hypothyroidism type: acquired Qualified Code(s): E03.9 - Hypothyroidism, unspecified (12) CORIE (obstructive sleep apnea) Onset Date: 04/07/18 Current Visit: Yes Status: Chronic (13) PVD (peripheral vascular disease) Onset Date: 04/07/18 Current Visit: Yes Status: Chronic (14) Seizure disorder Onset Date: 04/07/18 Current Visit: Yes Status: Chronic (15) Obesity Onset Date: 08/12/17 Current Visit: No Status: Acute Qualifiers: Obesity type: due to excess calories Obesity classification: unspecified obesity classification Serious obesity comorbidity presence: unspecified whether serious comorbidity present Qualified Code(s): E66.09 - Other obesity due to excess calories Discharge Plan: Home Plan to discharge in: 24 Hours - Code Status/Comfort Care Code Status Assessed: Yes Critical Care: No
[2018-04-10 12:25] LABS: Arterial Blood Carboxyhemoglob 1.9 % (0-1.5); Blood Gas Oxyhemoglobin 81.9 % (94-97); Blood O2 Saturation 84.1 % (92-98.5)
--- NOTE | 2018-04-10 14:07 | RAD REPORT ---
EXAM DESCRIPTION: RAD - Chest Single View - 04/10/2018 2:00 pm CLINICAL HISTORY: SOB Chest pain. COMPARISON: Chest Single View dated 04/05/2018; Chest Single View dated 08/10/2017; Chest Single View dated 08/07/2017; Chest Single View dated 07/09/2017 FINDINGS: Portable technique limits examination quality. Ill-defined right basilar lung opacity is noted which may represent atelectasis, aspiration or develo ping pneumonia. The heart is mildly prominent size within aortic stent seen. No displaced fractures. IMPRESSION: Mild ill-defined right basilar lung opacity may represent atelectasis, aspiration or dev eloping pneumonia.
[2018-04-10] MEDS ORDERED: POTASS/SODIUM PHOSPHATE 1 PKT POWD.PACK FT ONE (20:15)
--- NOTE | 2018-04-10 20:16 | P.PN ---
Date of Service: 04/10/18 Vital Signs Temp Pulse Resp BP Pulse Ox 97.9 F 79 12 111/55 L 95 04/10/18 16:00 04/10/18 16:00 04/10/18 16:00 04/10/18 16:00 04/10/18 16:00 Medications Acetaminophen (Tylenol -Extra Strength) 500 mg PO Q4HP PRN PRN Reason: [id number] Stop: 05/04/18 16:24 Last Admin: 04/10/18 10:13 Dose: 500 mg Albuterol Sulfate (Proventil 0.083% Neb Soln) 2.5 mg NEB [id number] PRN PRN Reason: SHORTNESS OF BREATH Stop: 05/04/18 20:01 Last Admin: 04/05/18 19:46 Dose: 2.5 mg Aspirin (Aspirin Chewable) 81 mg PO DAILY [facility] Stop: 05/10/18 09:01 Last Admin: 04/10/18 09:43 Dose: 81 mg Citalopram Hydrobromide (Celexa) 40 mg PO DAILY [facility] Stop: 05/05/18 09:01 Last Admin: 04/10/18 09:43 Dose: 40 mg Dextrose (Dextrose 50% Syringe) 12.5 gm IV PRN PRN; Protocol PRN Reason: HYPOGLYCEMIA Stop: 05/09/18 17:07 Diphenhydr/Magaldrate/Simeth/Lidoca (Magic Mouthwash) 5 ml PO QID [facility] Stop: 05/05/18 13:01 Last Admin: 04/10/18 17:00 Dose: Not Given Enoxaparin Sodium (Lovenox 30 Mg Inj) 30 mg SQ DAILY [facility] Stop: 05/04/18 18:01 Last Admin: 04/10/18 09:44 Dose: 30 mg Enteral Nutritional Formula (Glucerna 1.5 Emmanuel) 237 ml FT QID [facility] Stop: 05/05/18 17:01 Last Admin: 04/10/18 17:40 Dose: 237 ml Fentanyl (Duragesic Patch) 25 mcg TD EVERY 3RD DAY [facility] Stop: 05/06/18 09:01 Last Admin: 04/09/18 10:14 Dose: 25 mcg Gabapentin (Neurontin) 1,200 mg PO BEDTIME [facility] Stop: 05/05/18 21:01 Last Admin: 04/09/18 21:36 Dose: 1,200 mg Gabapentin (Neurontin) 600 mg PO DAILY [facility] Stop: 05/05/18 09:01 Last Admin: 04/10/18 09:43 Dose: 600 mg Glucagon (Glucagen) 1 mg IM 1X PRN; Protocol PRN Reason: HYPOGLYCEMIA Stop: 05/09/18 17:07 Home Med (Gly/Carb Homopoly A/Pot Hydrox [Mugard Oral Wound Rinse]) 0 ml PO QID [facility] Stop: 05/05/18 13:01 Last Admin: 04/10/18 17:00 Dose: Not Given Dextrose/Sodium Chloride (Dextrose 5% O.45% Saline) 1,000 mls @ 50 mls/hr IV .Q20H [facility] Stop: 05/07/18 14:01 Last Admin: 04/10/18 05:28 Dose: 1,000 mls Cefazolin Sodium (Ancef 1 Gm/10 Ml Swi Ivp) 1 gm in 10 mls @ 600 mls/hr IV OC [facility] Stop: 05/07/18 14:46 Last Admin: 04/08/18 14:08 Dose: 10 mls Insulin Human Regular (Novolin -R) 0 unit SQ Q6HR [facility]; Protocol Stop: 05/09/18 18:01 Last Admin: 04/10/18 18:00 Dose: Not Given Ipratropium [place] (Atrovent Neb) 0.5 mg NEB [id number] PRN PRN Reason: SHORTNESS OF BREATH Stop: 05/04/18 20:01 Last Admin: 04/05/18 19:46 Dose: 0.5 mg Levothyroxine Sodium (Synthroid) 0.112 mg PO [id number] [facility] Stop: 05/06/18 06:01 Last Admin: 04/10/18 05:28 Dose: 0.112 mg Ondansetron HCl (Zofran) 4 mg IV Q6HP PRN PRN Reason: NAUSEA / VOMITING Stop: 05/04/18 16:24 Last Admin: 04/08/18 16:11 Dose: 4 mg Pantoprazole Sodium (Protonix Inj) 40 mg IVP DAILY [facility] Stop: 05/05/18 09:01 Last Admin: 04/10/18 09:44 Dose: 40 mg Potassium Phos/Sodium Phos (Neutra-Phos Pwd) 2 pkt FT 1X ONE Stop: 04/10/18 20:16 Quetiapine Fumarate (Seroquel) 25 mg PO BEDTIME PRN PRN Reason: INSOMNIA Stop: 05/05/18 07:24 Last Admin: 04/09/18 21:36 Dose: 25 mg Sodium Chloride (Normal Saline Flush) 10 ml IV BID [facility] Stop: 05/04/18 21:01 Last Admin: 04/10/18 09:44 Dose: 10 ml Sodium Chloride (Sodium Chloride 10 Ml Inj) 10 ml IV UD PRN PRN Reason: Diluant Stop: 05/04/18 16:24 Topiramate (Topamax) 100 mg PO BID [facility] Stop: 05/05/18 09:01 Last Admin: 04/10/18 09:43 Dose: 100 mg Assessment/ Plan: Nephrology. Persistent difficulty and pain with swallowing. CPS worse with SOB and hypoxia requiring bipap therapy. No acute events overnight. Vitals, medications, blood work and imaging reviewed in the chart. General: Alert, In no apparent distress, Cooperative HEENT: Atraumatic Neck: Other (Right mass) Respiratory: Clear to auscultation bilaterally Cardiovascular: Trace edema, Regular rate/rhythm, No rubs Gastrointestinal: Soft and benign, Non-distended, No guarding Musculoskeletal: No clubbing, No contractures Integumentary: No rashes, No cyanosis Neurological: Normal speech Laboratory Data (last 24 hrs) 04/04/18 14:06: Sodium 141, Potassium 4.4, BUN 46 H, Creatinine 2.20 H, Glucose 69 L, Total Bilirubin 0.5, AST 42 H, ALT 32, Alkaline Phosphatase 43 L 04/04/18 14:06: WBC 3.9 L, Hgb 11.6 L, Hct 35.1 L, Plt Count 201 Imagings Data: EXAM DESCRIPTION: RAD - Chest Single View - 04/05/2018 6:04 am CLINICAL HISTORY: follow up SOB Chest pain. COMPARISON: Chest Single View dated 08/10/2017; Chest Single View dated 2016; Chest Single View dated 07/09/2017 FINDINGS: Portable technique limits examination quality. The lungs are grossly clear. The patient's chin obscures portion of both lung apices. The heart is upper limit normal in size. Stent is present in the descending thoracic aorta. No displaced fractures.Degenerative changes are present both shoulders. IMPRESSION: No acute intrathoracic process suspected. Conclusions/Impression: A/ MARY in the setting of hypovolemia. CKD III. HTN with CKD. CORIE. DM II with CKD. Anemia in chronic illness. Leukocytopenia. Moderate malnutrition. HypoPO4. Hypermagnesemia. Chronic pain. No NSAIDs. P/ Continue current POC and Medications. Continue TF. Replete phosphorus. Agree with Bipap and Oxygen. No NSAIDs. AM labs. Daily weight.
[2018-04-10] MEDS: GABAPENTIN 400 MG CAP PO SCH (21:17)
[2018-04-11 05:07] LABS: RBC Red Blood Cell Count 3.24 M/uL (3.86-4.86)
[2018-04-11 05:08] LABS: Absolute Lymphocytes (CBC) 0.3 K/uL (0.7-4.9); Absolute Monocytes 0.4 K/uL (0.1-1.3); Absolute Neutrophil 2.4 K/uL (1.8-8.0); Basophils % 1.1 % (0-1.3); Eosinophils % 3.7 % (0-4.4); Hematocrit 31.1 % (36.0-45.0); Lymphocytes % 8.8 % (15.3-44.8); MCH 31.9 pg (27.0-35.0); MCV 96.1 fL (80-100); MPV 9.3 fL (7.6-11.3); Monocytes % 12.4 % (3.3-12.3)
[2018-04-11] MEDS: LEVOTHYROXINE SOD 0.112 MG TAB PO SCH (05:09)
[2018-04-11] MEDS: INSULIN -REGULAR HUMAN 50 UNIT/0.5 ML ML SQ SCH ×4 (06:00→18:00)
[2018-04-11 06:33] LABS: Phosphorus 2.2 mg/dL (2.5-4.9); Potassium 5.4 mmol/L (3.5-5.1); Uric Acid 6.9 mg/dL (2.6-6.0)
[2018-04-11] MEDS: GLUCERNA 1.5 CAL 1,000 ML BOT FT SCH ×4 (09:00→20:19)
[2018-04-11] MEDS: [UNRECOGNIZED DRUG - SUPPLY] PO SCH ×4 (09:00→20:18)
[2018-04-11] MEDS: MAGIC MOUTHWASH 180 ML BTL PO SCH ×4 (09:00→20:19)
[2018-04-11] MEDS: DULERA 200/5 (MOMETASONE/FORMOTEROL) INHALER IH SCH ×2 (09:00→20:19)
[2018-04-11] MEDS: ENOXAPARIN 30 MG/0.3 ML SQ SCH (10:16)
[2018-04-11] MEDS: PANTOPRAZOLE 40 MG INJ IVP SCH (10:17)
[2018-04-11] MEDS: TOPIRAMATE 100 MG TAB PO SCH ×2 (10:17→20:25)
[2018-04-11] MEDS: ASPIRIN 81 MG CHEWABLE TABLET PO SCH (10:17)
[2018-04-11] MEDS: CITALOPRAM 10 MG TABLET PO SCH (10:17)
[2018-04-11] MEDS: GABAPENTIN 300 MG CAP PO SCH (10:17)
[2018-04-11 15:02] LABS: Arterial Blood Carboxyhemoglob 1.3 % (0-1.5); Blood Gas Oxyhemoglobin 88.3 % (94-97); Blood O2 Saturation 90.4 % (92-98.5)
--- NOTE | 2018-04-11 15:03 | P.PN ---
Subjective Date of Service: 04/11/18 Primary Care Provider: Dr. Bacon; Onc.-Dr. Mchugh; GI-Dr. Caro; Rad-Dr. Pineda;Card-Dr. Pak Chief Complaint: Dyspnea, dysphagia Patient seen and examined at bedside with RN. Chart reviewed. Case discussed with GI. S.P PEG tube placement POD#3 No complaints to offer overnight. Still on BIPAP Review of Systems 10-point ROS is otherwise unremarkable General: As per HPI Physical Examination - Vital Signs Temperature: 97.5 F Blood Pressure: 96/51 Pulse: 74 Respirations: 18 Pulse Ox (%): 96 - Physical Exam General: Alert, Oriented x3, Mild distress HEENT: Atraumatic, PERRLA, EOMI Neck: Supple, Other (Neck Mass on the Right with Horse Voice) Respiratory: Clear to auscultation bilaterally, Normal air movement, Expiratory wheezes, Inspiratory wheezes Cardiovascular: Regular rate/rhythm, Normal S1 S2 Gastrointestinal: Normal bowel sounds, No tenderness Musculoskeletal: No tenderness Integumentary: No rashes Neurological: Normal speech, Normal tone, Normal affect Lymphatics: No axilla or inguinal lymphadenopathy Other Physical/Emotional Findings: Patient dozing off due to severe sleep apnea - Studies Medications List Reviewed: Yes Assessment & Plan - Problems (Diagnosis) (1) Dysphagia Onset Date: 04/07/18 Current Visit: Yes Status: Acute Plan: Dysphagia 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 -Consult placed for HH for FT -OP ENT consult for Oral Ulcers Qualifiers: Dysphagia type: unspecified Qualified Code(s): R13.10 - Dysphagia, unspecified (2) Dyspnea Onset Date: 04/07/18 Current Visit: Yes Status: Acute Plan: Most Likely 2.2 to COPD vs CORIE. Currently with Acute hypercapnic Respiratory Distress -Duonebs, Steroids and oxygen -BIPAP for now. Wean As tolerated -DC with Oxygen - consulted for home O2 Qualifiers: Dyspnea type: shortness of breath Qualified Code(s): R06.02 - Shortness of breath; R06.00 - Dyspnea, unspecified; R06.01 - Orthopnea (3) Chronic renal failure Onset Date: 04/07/18 Current Visit: Yes Status: Chronic Plan: Most Likely 2.2 to dehydration due to Poor PO intake -IV fluids and improving today Qualifiers: Chronic kidney disease stage: stage 3 (moderate) Qualified Code(s): N18.3 - Chronic kidney disease, stage 3 (moderate) (4) COPD (chronic obstructive pulmonary disease) Onset Date: 04/07/18 Current Visit: Yes Status: Chronic Qualifiers: COPD type: chronic bronchitis Chronic bronchitis type: unspecified Qualified Code(s): J42 - Unspecified chronic bronchitis (5) Cancer of supraglottis Onset Date: 04/07/18 Current Visit: Yes Status: Chronic (6) Metastatic disease Onset Date: 04/07/18 Current Visit: Yes Status: Chronic (7) CAD (coronary artery disease) Onset Date: 04/07/18 Current Visit: Yes Status: Chronic Qualifiers: Coronary Disease-Associated Artery/Lesion type: [place] artery [place] vs. 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 Diabetes mellitus complication status: with unspecified complications Qualified Code(s): E11.8 - Type 2 diabetes mellitus with unspecified complications; Z79.4 - penitentiary (current) use of insulin; Z79.4 - manager long term care (current) use of insulin; Z79.4 - manager long term care (current) use of insulin; Z79.4 - manager long term care (current) use of insulin (9) Hyperlipidemia Onset Date: 04/07/18 Current Visit: Yes Status: Chronic Qualifiers: Hyperlipidemia type: mixed hyperlipidemia Qualified Code(s): E78.2 - Mixed hyperlipidemia (10) Hypertension Onset Date: 04/07/18 Current Visit: Yes Status: Chronic Qualifiers: Hypertension type: essential hypertension Qualified Code(s): I10 - Essential (primary) hypertension (11) Hypothyroidism Onset Date: 04/07/18 Current Visit: Yes Status: Chronic Qualifiers: Hypothyroidism type: acquired Qualified Code(s): E03.9 - Hypothyroidism, unspecified (12) CORIE (obstructive sleep apnea) Onset Date: 04/07/18 Current Visit: Yes Status: Chronic (13) PVD (peripheral vascular disease) Onset Date: 04/07/18 Current Visit: Yes Status: Chronic (14) Seizure disorder Onset Date: 04/07/18 Current Visit: Yes Status: Chronic (15) Obesity Onset Date: 08/12/17 Current Visit: No Status: Acute Qualifiers: Obesity type: due to excess calories Obesity classification: unspecified obesity classification Serious obesity comorbidity presence: unspecified whether serious comorbidity present Qualified Code(s): E66.09 - Other obesity due to excess calories Discharge Plan: Home Plan to discharge in: 48 Hours - Code Status/Comfort Care Code Status Assessed: Yes Critical Care: No
[2018-04-11] MEDS: D5 0.45 NS 1,000 ML IV SCH ×2 (18:00→21:17)
[2018-04-11] MEDS: GABAPENTIN 400 MG CAP PO SCH (20:18)
--- NOTE | 2018-04-11 22:41 | P.PN ---
Date of Service: 04/11/18 Vital Signs Temp Pulse Resp BP Pulse Ox 97.5 F 75 18 108/57 L 100 04/11/18 20:00 04/11/18 20:00 04/11/18 20:00 04/11/18 20:00 04/11/18 20:00 Medications Acetaminophen (Tylenol -Extra Strength) 500 mg PO Q4HP PRN PRN Reason: [id number] Stop: 05/04/18 16:24 Last Admin: 04/10/18 10:13 Dose: 500 mg Albuterol Sulfate (Proventil 0.083% Neb Soln) 2.5 mg NEB [id number] PRN PRN Reason: SHORTNESS OF BREATH Stop: 05/04/18 20:01 Last Admin: 04/05/18 19:46 Dose: 2.5 mg Aspirin (Aspirin Chewable) 81 mg PO DAILY [facility] Stop: 05/10/18 09:01 Last Admin: 04/11/18 10:17 Dose: 81 mg Citalopram Hydrobromide (Celexa) 40 mg PO DAILY [facility] Stop: 05/05/18 09:01 Last Admin: 04/11/18 10:17 Dose: 40 mg Dextrose (Dextrose 50% Syringe) 12.5 gm IV PRN PRN; Protocol PRN Reason: HYPOGLYCEMIA Stop: 05/09/18 17:07 Diphenhydr/Magaldrate/Simeth/Lidoca (Magic Mouthwash) 5 ml PO QID [facility] Stop: 05/05/18 13:01 Last Admin: 04/11/18 20:19 Dose: 5 ml Enoxaparin Sodium (Lovenox 30 Mg Inj) 30 mg SQ DAILY [facility] Stop: 05/04/18 18:01 Last Admin: 04/11/18 10:16 Dose: 30 mg Enteral Nutritional Formula (Glucerna 1.5 Emmanuel) 237 ml FT QID [facility] Stop: 05/05/18 17:01 Last Admin: 04/11/18 20:19 Dose: 237 ml Fentanyl (Duragesic Patch) 25 mcg TD EVERY 3RD DAY [facility] Stop: 05/06/18 09:01 Last Admin: 04/09/18 10:14 Dose: 25 mcg Gabapentin (Neurontin) 1,200 mg PO BEDTIME [facility] Stop: 05/05/18 21:01 Last Admin: 04/11/18 20:18 Dose: 1,200 mg Gabapentin (Neurontin) 600 mg PO DAILY [facility] Stop: 05/05/18 09:01 Last Admin: 04/11/18 10:17 Dose: 600 mg Glucagon (Glucagen) 1 mg IM 1X PRN; Protocol PRN Reason: HYPOGLYCEMIA Stop: 05/09/18 17:07 Home Med (Gly/Carb Homopoly A/Pot Hydrox [Mugard Oral Wound Rinse]) 0 ml PO QID [facility] Stop: 05/05/18 13:01 Last Admin: 04/11/18 20:18 Dose: 10 ml Cefazolin Sodium (Ancef 1 Gm/10 Ml Swi Ivp) 1 gm in 10 mls @ 600 mls/hr IV OC [facility] Stop: 05/07/18 14:46 Last Admin: 04/08/18 14:08 Dose: 10 mls Sodium Chloride (Ns 1000 Ml Ivbag) 1,000 mls @ 125 mls/hr IV .Q8H [facility] Stop: 04/12/18 06:59 Insulin Human Regular (Novolin -R) 0 unit SQ Q6HR [facility]; Protocol Stop: 05/09/18 18:01 Last Admin: 04/11/18 18:00 Dose: Not Given Ipratropium [place] (Atrovent Neb) 0.5 mg NEB [id number] PRN PRN Reason: SHORTNESS OF BREATH Stop: 05/04/18 20:01 Last Admin: 04/05/18 19:46 Dose: 0.5 mg Levothyroxine Sodium (Synthroid) 0.112 mg PO [id number] [facility] Stop: 05/06/18 06:01 Last Admin: 04/11/18 05:09 Dose: 0.112 mg Ondansetron HCl (Zofran) 4 mg IV Q6HP PRN PRN Reason: NAUSEA / VOMITING Stop: 05/04/18 16:24 Last Admin: 04/08/18 16:11 Dose: 4 mg Pantoprazole Sodium (Protonix Inj) 40 mg IVP DAILY [facility] Stop: 05/05/18 09:01 Last Admin: 04/11/18 10:17 Dose: 40 mg Quetiapine Fumarate (Seroquel) 25 mg PO BEDTIME PRN PRN Reason: INSOMNIA Stop: 05/05/18 07:24 Last Admin: 04/09/18 21:36 Dose: 25 mg Sodium Chloride (Normal Saline Flush) 10 ml IV BID [facility] Stop: 05/04/18 21:01 Last Admin: 04/11/18 20:19 Dose: 10 ml Sodium Chloride (Sodium Chloride 10 Ml Inj) 10 ml IV UD PRN PRN Reason: Diluant Stop: 05/04/18 16:24 Topiramate (Topamax) 100 mg PO BID [facility] Stop: 05/05/18 09:01 Last Admin: 04/11/18 20:25 Dose: 100 mg Assessment/ Plan: Nephrology. Persistent difficulty and pain with swallowing. CPS worse with SOB and hypoxia requiring bipap therapy. No acute events overnight. Vitals, medications, blood work and imaging reviewed in the chart. General: Alert, In no apparent distress, Cooperative HEENT: Atraumatic Neck: Other (Right mass) Respiratory: Clear to auscultation bilaterally Cardiovascular: Trace edema, Regular rate/rhythm, No rubs Gastrointestinal: Soft and benign, Non-distended, No guarding Musculoskeletal: No clubbing, No contractures Integumentary: No rashes, No cyanosis Neurological: Normal speech Laboratory Data (last 24 hrs) 04/04/18 14:06: Sodium 141, Potassium 4.4, BUN 46 H, Creatinine 2.20 H, Glucose 69 L, Total Bilirubin 0.5, AST 42 H, ALT 32, Alkaline Phosphatase 43 L 04/04/18 14:06: WBC 3.9 L, Hgb 11.6 L, Hct 35.1 L, Plt Count 201 Imagings Data: EXAM DESCRIPTION: RAD - Chest Single View - 04/05/2018 6:04 am CLINICAL HISTORY: follow up SOB Chest pain. COMPARISON: Chest Single View dated 08/10/2017; Chest Single View dated 2016; Chest Single View dated 07/09/2017 FINDINGS: Portable technique limits examination quality. The lungs are grossly clear. The patient's chin obscures portion of both lung apices. The heart is upper limit normal in size. Stent is present in the descending thoracic aorta. No displaced fractures.Degenerative changes are present both shoulders. IMPRESSION: No acute intrathoracic process suspected. Conclusions/Impression: A/ MARY in the setting of hypovolemia. CKD III. Hyperkalemia. HTN with CKD. CORIE. DM II with CKD. Anemia in chronic illness. Leukocytopenia. Moderate malnutrition. HypoPO4. Hypermagnesemia. Chronic pain. No NSAIDs. P/ Continue current POC and Medications. Continue TF. Lower potassium in TF. Kayexalate as needed. Give a liter of NS. Replete phosphorus. Agree with Bipap and Oxygen. No NSAIDs. AM labs. Daily weight.
[2018-04-11] MEDS ORDERED: NA CHLORIDE 0.9% 1,000 ML IV SCH (23:00)
[2018-04-12] MEDS: INSULIN -REGULAR HUMAN 50 UNIT/0.5 ML ML SQ SCH ×3 (05:32→12:00)
[2018-04-12] MEDS: LEVOTHYROXINE SOD 0.112 MG TAB PO SCH (05:35)
[2018-04-12 06:00] LABS: Phosphorus 2.2 mg/dL (2.5-4.9); Potassium 4.8 mmol/L (3.5-5.1)
[2018-04-12] MEDS: DULERA 200/5 (MOMETASONE/FORMOTEROL) INHALER IH SCH (09:00)
[2018-04-12] MEDS: GABAPENTIN 300 MG CAP PO SCH (09:43)
[2018-04-12] MEDS: ENOXAPARIN 30 MG/0.3 ML SQ SCH (09:43)
[2018-04-12] MEDS: FENTANYL 25 MCG/PATCH TD SCH ×2 (09:44→10:00)
[2018-04-12] MEDS: ASPIRIN 81 MG CHEWABLE TABLET PO SCH (09:45)
[2018-04-12] MEDS: TOPIRAMATE 100 MG TAB PO SCH (09:45)
[2018-04-12] MEDS: PANTOPRAZOLE 40 MG INJ IVP SCH (09:45)
[2018-04-12] MEDS: CITALOPRAM 10 MG TABLET PO SCH (09:45)
[2018-04-12] MEDS: [UNRECOGNIZED DRUG - SUPPLY] PO SCH (10:06)
[2018-04-12] MEDS: MAGIC MOUTHWASH 180 ML BTL PO SCH (10:06)
[2018-04-12] MEDS: GLUCERNA 1.5 CAL 1,000 ML BOT FT SCH (10:08)
[2018-04-12 11:02] VITALS: O2SAT 96
[2018-04-12 12:28] VITALS: BP 122/57; TEMP 96.8
--- NOTE | 2018-04-12 15:50 | P.DS ---
Admission Date: 04/04/18 Discharge Date: 04/12/18 Primary Care Provider: Dr. Bacon; Onc.-Dr. Mchugh; GI-Dr. Caro; Rad-Dr. Pineda;Card-Dr. Pak Disposition: ROUTINE DISCHARGE Discharge Condition: GOOD Reason for Admission: Dyspnea, dysphagia Consultations: GI Nephrology Pulmonology - Problems (1) Dysphagia Onset Date: 04/07/18 Status: Acute Qualifiers: Dysphagia type: unspecified Qualified Code(s): R13.10 - Dysphagia, unspecified (2) Dyspnea Onset Date: 04/07/18 Status: Acute Qualifiers: Dyspnea type: shortness of breath Qualified Code(s): R06.02 - Shortness of breath; R06.00 - Dyspnea, unspecified; R06.01 - Orthopnea (3) Chronic renal failure Onset Date: 04/07/18 Status: Chronic Qualifiers: Chronic kidney disease stage: stage 3 (moderate) Qualified Code(s): N18.3 - Chronic kidney disease, stage 3 (moderate) (4) COPD (chronic obstructive pulmonary disease) Onset Date: 04/07/18 Status: Chronic Qualifiers: COPD type: chronic bronchitis Chronic bronchitis type: unspecified Qualified Code(s): J42 - Unspecified chronic bronchitis (5) Cancer of supraglottis Onset Date: 04/07/18 Status: Chronic (6) Metastatic disease Onset Date: 04/07/18 Status: Chronic (7) CAD (coronary artery disease) Onset Date: 04/07/18 Status: Chronic Qualifiers: Coronary Disease-Associated Artery/Lesion type: [place] artery [place] vs. transplanted heart: [place] heart Associated angina: without angina Qualified Code(s): I25.10 - Atherosclerotic heart disease of [place] coronary artery without angina pectoris (8) Diabetes mellitus Onset Date: 04/07/18 Status: Chronic Qualifiers: Diabetes mellitus type: type 2 Diabetes mellitus senior care insulin use: with senior care use Diabetes mellitus complication status: with unspecified complications Qualified Code(s): E11.8 - Type 2 diabetes mellitus with unspecified complications; Z79.4 - alf (current) use of insulin; Z79.4 - moth exterminator (current) use of insulin; Z79.4 - moth exterminator (current) use of insulin; Z79.4 - moth exterminator (current) use of insulin (9) Hyperlipidemia Onset Date: 04/07/18 Status: Chronic Qualifiers: Hyperlipidemia type: mixed hyperlipidemia Qualified Code(s): E78.2 - Mixed hyperlipidemia (10) Hypertension Onset Date: 04/07/18 Status: Chronic Qualifiers: Hypertension type: essential hypertension Qualified Code(s): I10 - Essential (primary) hypertension (11) Hypothyroidism Onset Date: 04/07/18 Status: Chronic Qualifiers: Hypothyroidism type: acquired Qualified Code(s): E03.9 - Hypothyroidism, unspecified (12) CORIE (obstructive sleep apnea) Onset Date: 04/07/18 Status: Chronic (13) PVD (peripheral vascular disease) Onset Date: 04/07/18 Status: Chronic (14) Seizure disorder Onset Date: 04/07/18 Status: Chronic (15) Obesity Onset Date: 08/12/17 Status: Acute Qualifiers: Obesity type: due to excess calories Obesity classification: unspecified obesity classification Serious obesity comorbidity presence: unspecified whether serious comorbidity present Qualified Code(s): E66.09 - Other obesity due to excess calories Brief History of Present Illness: 62-year-old female presented emergency room with dyspnea and dysphagia. 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 Over the past several days she has been having increasing shortness of breath and dysphagia. Patient has been getting radiation as an outpatient. Patient is currently in the process of trying to obtain a feeding tube. Patient has had poor oral intake. She has had weight loss. She reports some problems with swallowing. She was recently evaluated by GI. GI recommended cardiology and pulmonology clearance before PEG tube is placed. Her symptoms of dysphagia and dyspnea got worse today. She came to the ER for further evaluation. Patient with multiple medical problems including diabetes, hypertension, hyperlipidemia, CAD, peripheral vascular disease, hypothyroidism, though PD, tobacco abuse, and severe sleep apnea. In the ER she was evaluated. White count 3.9, hemoglobin 11.6. Sodium 141, potassium 4.4, BUN of 46, creatinine 2.2 with a GFR 23. Glucose 69. CT scan shows circumferential supraglottic tissue thickening with mass affect. Resulting in narrow airway. Patient with severe sleep apnea. Patient with increased fatigue. Due to the nature of her problems the patient was admitted for further evaluation. When I saw the patient ER, she appeared comfortable. Sister at bedside. Patient desires PEG tube. Advanced directives address in detail. Patient is DNR. Hospital Course: Overall during the hospital stay patient remained stable patient was initially admitted to the hospital for shortness of breath and dysphagia. Patient was found to have dyspnea most likely secondary to acute hypercapnic respiratory failure secondary to COPD exacerbation. Patient initially was placed on BiPAP and was successfully weaned off to nasal cannula. Pulmonology was consulted who agreed with duo nebs, steroids, oxygen here in the hospital and CPAP at night and BiPAP p.r.n. at night as well. Patient had marked improvement in her symptoms and thus was weaned successfully to nasal cannula and home oxygenation was arranged for the patient to take home. Patient 's shortness of breath was most likely secondary to multifactorial reasons from her epiglottic cancer as well. Patient was asked to follow up with pulmonology on outpatient basis once she gets discharged from the hospital. Patient agreed with the plan. While here in the hospital patient also was complaining of dysphagia most likely secondary to progressively worsening of her epiglottic cancer. GI was consulted who recommended the patient have a PEG tube placement for nutritional needs. Patient had a PEG tube placement here in the hospital without any complication. home health was arranged for PEG tube feedings. Dietary was consulted who recommended the patient have Glucerna 1.5 t.i.d. for tube feedings. Home health was arranged and patient was discharged home under stable condition with this issue to be delivered at her house on the day of discharge. Patient was also asked to follow up with her primary care provider along with the ENT specialist for her metastatic disease. Patient demonstrated understanding and stated that she will be following up with her oncologist her primary care doctor ENT doctor pulmonology in GI 1 she is discharged from hospital in 1-2 weeks. Vital Signs/Physical Exam: Temp Pulse Resp BP Pulse Ox 96.8 F 71 12 122/57 L 97 04/12/18 12:00 04/12/18 12:00 04/12/18 12:00 04/12/18 12:04/12/18 12:00 General: Alert, In no apparent distress HEENT: Atraumatic, PERRLA, EOMI Neck: Supple, Other (Right sided Neck mAss) Respiratory: Normal air movement, Expiratory wheezes, Inspiratory wheezes Cardiovascular: Regular rate/rhythm, Normal S1 S2 Gastrointestinal: Normal bowel sounds, No tenderness Musculoskeletal: No tenderness Integumentary: No rashes Neurological: Normal speech, Normal tone, Normal affect Lymphatics: No axilla or inguinal lymphadenopathy Other Physical/Emotional Findings: Patient dozing off due to severe sleep apnea Laboratory Data at Discharge: WBC 3.3 K/uL (4.3-10.9) L D 04/11/18 04:43 Hgb 10.3 g/dL (12.0-15.0) L 04/11/18 04:43 Hct 31.1 % (36.0-45.0) L 04/11/18 04:43 Plt Count 203 K/uL (152-406) 04/11/18 04:43 Sodium 138 mmol/L (136-145) 04/12/18 05:05 Potassium 4.8 mmol/L (3.5-5.1) 04/12/18 05:05 BUN 26 mg/dL (7-18) H 04/12/18 05:05 Creatinine 1.50 mg/dL (0.55-1.3) H 04/12/18 05:05 Glucose 91 mg/dL (74-106) 04/12/18 05:05 Uric Acid 6.9 mg/dL (2.6-6.0) H 04/11/18 06:11 Phosphorus 2.2 mg/dL (2.5-4.9) L 04/12/18 05:05 Magnesium 2.1 mg/dL (1.8-2.4) 04/10/18 05:04 Total Bilirubin 0.5 mg/dL (0.2-1.0) 04/04/18 14:06 AST 42 U/L (15-37) H 04/04/18 14:06 ALT 32 U/L (12-78) 04/04/18 14:06 Alkaline Phosphatase 43 U/L (45-117) L 04/04/18 14:06 Triglycerides 306 mg/dL (<150) H 04/05/18 05:25 Cholesterol 219 mg/dL (<200) H 04/05/18 05:25 HDL Cholesterol 48 mg/dL (40-60) 04/05/18 05:25 Cholesterol/HDL Ratio 4.56 04/05/18 05:25 Home Medications: Amlodipine Besylate [Norvasc] 5 mg PO DAILY 04/04/18 Aspirin [Aspirin EC 81 MG] 81 mg PO DAILY 04/04/18 Citalopram Hydrobromide [Celexa] 40 mg PO DAILY 04/04/18 Fentanyl Patch [Duragesic Patch*] 25 mcg TOP EVERY 3RD DAY 04/04/18 Gabapentin [Neurontin*] 1,200 mg PO BEDTIME 04/04/18 Gabapentin [Neurontin*] 600 mg PO DAILY 04/04/18 Gly/Carb Homopoly A/Pot Hydrox [Mugard Oral Wound Rinse] 10 ml PO QID 04/04/18 Hydrocodone/APAP Soln [Lortab Solution *] 7.5 ml PO QIDP PRN 04/04/18 Insulin -Regular Human [Novolin -R*] 10 units SQ BID 04/04/18 Levothyroxine [Synthroid*] 0.112 mcg PO DAILY 04/04/18 Magic Mouthwash [Magic Mouthwash*] 5 ml PO QID 04/04/18 Minocycline HCl [Minocin] 100 mg PO BID 04/04/18 Ondansetron [Ondansetron Odt] 4 mg PO TIDP PRN 04/04/18 Pantoprazole Sodium [Protonix] 40 mg PO DAILY 04/04/18 Potassium Chloride [K-Tab ER] 20 meq PO SEECOM 04/04/18 Quetiapine Fumarate [Seroquel] 25 mg PO BEDTIME 04/04/18 Topiramate [Topamax*] 100 mg PO BID 04/04/18 Torsemide [Demadex*] 40 mg PO DAILY 04/04/18 Diet: Regular Activity: Ad jan Followup: Galo Sanz MD [ACTIVE - CAN ADMIT] - 1-2 Weeks (Call to schedule an appointment) Izzy Squires MD [ACTIVE - CAN ADMIT] - 1-2 Weeks (Call to schedule an appointment) Lorenzo Barrios MD [ACTIVE - CAN ADMIT] - 1-2 Weeks (Call to schedule an appointment)
--- NOTE | 2018-04-12 20:50 | PN ---
Date of Progress Note: 04/12/2018 Subjective: Patient is seen and examined at bedside, doing much better. Denies any complaints. The PEG tube is working okay. Denies any shortness of breath. Objective: Vital signs: Have been reviewed and are stable, on nasal cannula oxygen. General: She appears in no acute distress. Obese female. HEENT: Atraumatic head. Lungs: Auscultation of lungs is clear. Abdomen: Soft. Extremities: With trace amount of edema was noted. Laboratory Data: Showing creatinine improving to 1.5. Sodium of 138, potassium of 4.8, bicarb of 29 . BMP results are showing WBC count of 3.3, hemoglobin of 10.3, hematocrit 31.1, and platelet count of 203. Current Medications: Include albuterol nebulizer treatments, aspirin, Celexa, Lovenox for DVT prophy laxis, gabapentin 600 mg a day and 1200 mg at bedtime, Glucerna through the feeding tube. Levothyrox ine inhalers, pantoprazole, Seroquel, and Topamax. Impression: 1.Acute renal insufficiency secondary to acute tubular necrosis. Currently with improving renal fun ction. 2.Dysphagia status post PEG tube placement. The patient is able to tolerate tube feeds pretty well. 3.Leukopenia secondary to underlying cancer, currently stable. 4.Dyspnea secondary to chronic obstructive pulmonary disease. The patient has been on DuoNeb, stero ids and oxygen, which is stable and she is being discharged on home oxygen. 5.Cancer of the supraglottis. 6.Coronary artery disease, stable. Plan: The patient's renal function is overall improving at this time secondary to the volume depleti on. The patient has a PEG tube placed and she will be getting tube feeds. Hopefully, we will preven t further episodes of dehydration. Leukopenia is chronic and can be monitored. Continue DuoNeb and antibiotics per primary team and the patient is okay to be discharged from Nephrology standpoint. VV/MODL Voice ID: [id number] Report ID: [id number]
== END 2018-04-12 15:30 | disposition home health service (06) | DRG 391 ==
LOC: ER 13:06 → ERHOLD 16:32 → 4TH 18:00
PROVIDERS: ADMIT Family Medicine; ATTEND Family Medicine
PROC: 0DH63UZ Insertion of Feeding Device into Stomach, Percutaneous Approach (ICD-10-PCS; principal; 2018-04-08 12:00)
PROC: 5A09457 Assistance with Respiratory Ventilation, 24-96 Consecutive Hours, Continuous Positive Airway Pressure (ICD-10-PCS; 2018-04-10)
DX: R13.10 Dysphagia, unspecified (principal); J96.02 Acute respiratory failure with hypercapnia; J44.1 Chronic obstructive pulmonary disease with (acute) exacerbation; C77.0 Secondary and unspecified malignant neoplasm of lymph nodes of head, face and neck; E44.0 Moderate protein-calorie malnutrition; N17.9 Acute kidney failure, unspecified; N18.3 Chronic kidney disease, stage 3 (moderate); C32.1 Malignant neoplasm of supraglottis; I25.10 Atherosclerotic heart disease of native coronary artery without angina pectoris; E11.22 Type 2 diabetes mellitus with diabetic chronic kidney disease; I12.9 Hypertensive chronic kidney disease with stage 1 through stage 4 chronic kidney disease, or unspecified chronic kidney disease; E78.2 Mixed hyperlipidemia; E03.9 Hypothyroidism, unspecified; G47.33 Obstructive sleep apnea (adult) (pediatric); E11.51 Type 2 diabetes mellitus with diabetic peripheral angiopathy without gangrene; G40.909 Epilepsy, unspecified, not intractable, without status epilepticus; E66.09 Other obesity due to excess calories; R62.7 Adult failure to thrive; D72.819 Decreased white blood cell count, unspecified; Z66 Do not resuscitate; E87.5 Hyperkalemia; D63.8 Anemia in other chronic diseases classified elsewhere; E83.39 Other disorders of phosphorus metabolism; E83.41 Hypermagnesemia; F17.210 Nicotine dependence, cigarettes, uncomplicated; G89.29 Other chronic pain; E86.0 Dehydration; K20.8 Other esophagitis; W88.1XXA Exposure to radioactive isotopes, initial encounter; Z88.5 Allergy status to narcotic agent; Z79.82 Long term (current) use of aspirin; Z79.4 Long term (current) use of insulin; Z99.81 Dependence on supplemental oxygen; Z88.8 Allergy status to other drugs, medicaments and biological substances; Z68.35 Body mass index [BMI] 35.0-35.9, adult; Z95.5 Presence of coronary angioplasty implant and graft; Z95.820 Peripheral vascular angioplasty status with implants and grafts
CPT/HCPCS: 36415; 70491; 71045; 74230; 76770; 77386; 80048; 80053; 80061; 81001; 82784; 82805; 82962; 83735; 84100; 84165; 84439; 84443; 84550; 85025; 93005; 93306; 94640; 94660; 94760; 96374; 99285; C9113; J1100; J1650; J2001; J2405; J3475; J7030; J7605; J7606; Q9967

== ENCOUNTER 2018-06-10 18:03 | Emergency (ER) | payer OTHER ==
--- OUTSIDE RECORDS SUMMARY | 2018-06-10 18:05 | XMS REPORT | Clinical Summary ---
:1955 Author Organization [facility] Address [address] [place] [address] Phone Care Team Providers Name Role Phone [...] 07/15/2017 Acute pulmonary edema ([facility]) 07/15/2017 Acute respiratory distress syndrome (ARDS) ([facility]) 07/14/2017 Hypovolemic shock ([facility]) not a complication of surgery 07/13/2017 Postoperative anemia due to acute blood loss 07/13/2017 Respiratory acidosis 07/13/2017 S/P endovascular stent graft for thoracic aortic aneurysm 07/12/2017 Penetrating atherosclerotic ulcer of aorta ([facility]) 07/10/2017 Acute pulmonary insufficiency following nonthoracic surgery ([facility]) 07/10/2017 Acute kidney injury superimposed on chronic kidney disease ([facility]) 07/10/2017 Narcolepsy 07/10/2017 Essential hypertension 07/10/2017 Diabetes ([facility]) 07/10/2017 Atherosclerosis of coronary artery without [...] BMI of 40.0-44.9, adult ([facility]) 07/10/2017 Hypothyroid 07/10/2017 Sleep apnea 07/10/2017 [...] 07/10/2017 Orders Only General Internal Medicine after 06/09/2017 Immunizations Name Dates Previously Given Next Due [...] Taken Blood Pressure 146/71 08/05/2017 8:13 AM BIOMEDICAL SPECIALIST Pulse 95 08/05/2017 7:45 PM BIOMEDICAL SPECIALIST Temperature 35.9 C (96.6 F) 08/05/2017 8:13 AM BIOMEDICAL SPECIALIST Respiratory Rate 20 08/05/2017 7:45 PM BIOMEDICAL SPECIALIST Oxygen Saturation 96% 08/05/2017 7:45 PM BIOMEDICAL SPECIALIST Inhaled Oxygen Concentration - - Weight 103.9 kg (229 lb 0.9 oz) 08/05/2017 8:13 AM BIOMEDICAL SPECIALIST Height 157.5 cm (5' 2") 07/10/2017 1:00 AM BIOMEDICAL SPECIALIST Body Mass Index 41.9 08/05/2017 8:13 AM BIOMEDICAL SPECIALIST Plan of Treatment Not on file Implants Implanted Type Area Exhaust Emissions Automotive Technician Device Expiration Model / Identifier Date Serial / Lot Closure Sys Perclose Progl 6fr [id number] - [id number] Cardiovascular N/A: CAMACHO 04/25/2019 [id number] / Implanted: Qty: 2 on 07/12/2017 by Valdo Cochran MD Groin LAB: [facility] DEV / [id number] Zenith Alpha Thoracicendovascular Graft Other N/A: [employer] 2019 [id number] / Implanted: Qty: 1 on 07/12/2017 by Valdo Cochran MD Aorta / [id number] Procedures Procedure Name Priority Date/Time Associated Diagnosis Comments REPAIR,TEVAR-THORACIC 07/12/2017 7:30 AM ANEURYSM ENDOVASCULAR ANEURYSM BIOMEDICAL SPECIALIST after 06/09/2017 Results RHYTHM STRIP - SCAN (08/16/2017 12:50 PM)Only the most recent of2 resultswithin the time period is included.VASCULAR DIAGRAM -SCAN (08/07/2017 10:00 AM)EKG- SCANNED (08/07/2017 10:00 AM)CTA chest, abdomen & pelvis - for dissection ( 08/05/2017 6:19 PM)Only the most recent of2 resultswithin the time period is included. Specimen Performing Laboratory [employer] Narrative Addendum Begins REPORT STATUS:A Addendum: I agree with the previously described non vascular findings. Signed: Rachna Watson MD Report Verified Date/Time:08/06/2017 10:39:07 Reading Location: [place] [address] Angio Body Reading Room Addendum Ends FINAL [...] of the progression/resolution of the haematoma. Surgical in house cra was paged to inform this finding at the time of dictation. Dr. Dyer was contacted to discuss this finding. 5.An addendum will be dictated by the Social Work Therapist Radiologist regarding the nonvascular findings. Signed: Willis Washington MD Report Verified Date/Time:08/05/2017 19:03:58 Reading Location: [facility] P047 Cardiology MRI Procedure Note Interface, External Ris In - 08/06/2017 10:41 AM BIOMEDICAL SPECIALIST Addendum Begins REPORT STATUS:A Addendum: I agree with the previously described non vascular findings. Signed: Rachna Watson MD Report Verified Date/Time: 08/06/2017 10:39:07 Reading Location: [place] [id number] Angio Body Reading Room Addendum Ends FINAL [...] of the progression/resolution of the haematoma. Surgical in house cra was paged to inform this finding at the time of dictation. Dr. Dyer was contacted to discuss this finding. 5. An addendum will be dictated by the Social Work Therapist Radiologist regarding the nonvascular findings. Signed: Willis Washington MD Report Verified Date/Time: 08/05/2017 19:03:58 Reading Location: [place] [address] Cardiology MRI -Glucose meter (08/05/2017 1:01 PM)Only the most recent of115 resultswithin the time period is included. Component Value Ref Range POC-Glucose Meter 100Comment: TESTED AT [address] 70 - 110 mg/dL [id number] Specimen Performing Laboratory Blood [facility] [address] [address] XR chest 1 view portable / bedside [...] MD Report Verified Date/Time:08/05/2017 08:46:21 Reading Location: [facility] Radiology Reading Room Procedure Note Interface, External Ris In - 08/05/2017 9:02 AM BIOMEDICAL SPECIALIST FINAL REPORT Portable chest 08/05/2017 COMPARISON: 08/04/2017 [...] Report Verified Date/Time: 08/05/2017 08:46:21 Reading Location: [facility] Radiology Reading Room aPTT (08/05/2017 5:40 AM)Only the most recent of27 resultswithin the time period is included. Component Value Ref Range PTT 30.7 22.5 - 36.0 seconds Specimen Performing Laboratory Blood [address] [address] Prothrombin time/INR (08/05/2017 5:40 AM)Only the most recent of30 resultswithin the time period is included. Component Value Ref Range Protime 13.2 11.7 - 14.7 seconds INR 1.0 <=5.9 Specimen Performing Laboratory Blood [address] [address] Narrative RECOMMENDED COUMADIN/WARFARIN INR THERAPY RANGES STANDARD [...] 0 /100 WBC Specimen Performing Laboratory Blood [address] [address] Phosphorus (08/05/2017 5:40 AM)Only the most recent of30 resultswithin the time period is included. Component Value Ref Range Phosphorus 4.1 2.3 - 4.7 mg/dL Specimen Performing Laboratory Blood [address] [address] Magnesium (08/05/2017 5:40 AM)Only the most recent of32 resultswithin the time period is included. Component Value Ref Range Magnesium 1.6 1.6 - 2.6 mg/dL Specimen Performing Laboratory Blood [address] [address] Basic Metabolic Panel (08/05/2017 5:40 AM)Only the [...] FOR DIALYSIS PATIENTS. Specimen Performing Laboratory Blood [address] [address] Vancomycin level, trough (08/01/2017 7:58 PM)Only the most recent of3 resultswithin the time period is included. Component Value Ref Range Vancomycin Tr 12.2 10.0 - 20.0 ug/mL Specimen Performing Laboratory Blood [address] [address] [place] esoph swallow funct with cine video [...] MD Report Verified Date/Time:07/30/2017 14:35:49 Reading Location: [address] Ortho Consult Reading Room Procedure Note Interface, External Ris In - 09/11/2017 1:33 PM BIOMEDICAL SPECIALIST FINAL REPORT Modified barium swallow with speech [...] Report Verified Date/Time: 07/30/2017 14:35:49 Reading Location: [address] Ortho Consult Reading Room Blood culture (07/29/2017 6:17 PM)Only the most recent of9 resultswithin the time period is included. Component Value Ref Range Result No growth in 5 days Specimen Performing Laboratory Blood - Central Venous Line [address] [address] XR abdomen / KUB 1 view (07/29/2017 [...] MD Report Verified Date/Time:07/29/2017 09:40:24 Reading Location: [facility] Radiology Reading Room Procedure Note Interface, External Ris In - 07/29/2017 9:42 AM BIOMEDICAL SPECIALIST FINAL REPORT Abdomen one view Comparison: July 22, 2017 Reason for exam: reposition of NGT Findings: Feeding tube projects over the expected location of distal gastric body. Gas pattern appears nonspecific. Signed: Eleazar Shepard MD Report Verified Date/Time: 07/29/2017 09:40:24 Reading Location: [facility] Radiology Reading Room Potassium (07/28/2017 4:11 PM)Only the most recent of5 resultswithin the time period is included. Component Value Ref Range Potassium 4.1 3.5 - 5.1 meq/L Specimen Performing Laboratory Blood [place] [address] Narrative PRN - repeat potassium levels every 1 hour until glucose level is less than 450 mg/dL Vancomycin level, random (07/28/2017 4:10 AM)Only the most recent of2 resultswithin the time period is included. Component Value Ref Range Vancomycin Rm 25.6 ug/mL Specimen Performing Laboratory Blood - Line, Arterial [address] [address] Narrative Reference Range: No Normals Blood gas, [...] 40.0 % Specimen Performing Laboratory Blood, Arterial [address] [address] Narrative Daily ABG with morning labs while patient is intubated. Glucose-STAT (07/26/2017 12:29 AM) Component Value Ref Range Glucose 336 (H) 70 - 105 mg/dL Specimen Performing Laboratory Blood - Line, Arterial [address] [address] Bronchial culture + gram stain (07/24/2017 12:40 PM) Component Value Ref Range Result 1+ Normal respiratory ambreen present Gram Stain Result 1+ WBCs Gram Stain Result No organisms seen Specimen Performing Laboratory BAL - Bronchial Wash [address] [address] Urine culture (07/24/2017 11:37 AM) Component Value Ref Range Result No growth Specimen Performing Laboratory Urine - Urine, Vora [address] [address] BCID (07/24/2017 11:31 AM) Component Value Ref Range Scan Result Specimen Performing Laboratory Blood [address] [address] Narrative Result comments: Coagulase Negative Staphylococcus Species [...] required. This sample was tested at the [facility] Clinical Microbiology Laboratory using the [employer] Blood Culture ID Panel. This test is FDA cleared for in vitro diagnostic use and has been verified and approved by the [facility] Clinical Microbiologylaboratory for clinical use. Reference Range: Not Detected Sputum Culture + Gram Stain (07/24/2017 11:20 AM)Only the most recent of2 resultswithin the time period is included. Component Value Ref Range Result 1+ Normal respiratory ambreen present Gram Stain Result 1+ WBCs Gram Stain Result 0-5 epithelial cells Gram Stain Result No organisms seen Specimen Performing Laboratory Sputum - Suctioned [facility] [address] TSH/Free T4 If Indicated (07/20/2017 3:46 AM)Only the most recent of3 resultswithin the time period is included. Component Value Ref Range TSH 1.13 0.35 - 4.94 uIU/mL Specimen Performing Laboratory Blood - Line, Arterial [address] [address] TRANSFUSION SERVICE REPORT - SCAN (07/17/2017 5:41 [...] FOR DIALYSIS PATIENTS. Specimen Performing Laboratory Blood [address] [address] Hepatic function panel (07/17/2017 12:10 AM) Component [...] U/L Specimen Performing Laboratory [facility] [address] [address] CBC with platelet count + automated diff [...] 1 % Specimen Performing Laboratory Blood [facility] [address] [address] CBC with platelet count + automated diff (07/17/2017 12:03 AM)Only the most recent of4 resultswithin the time period is included. Specimen Performing Laboratory Blood Narrative The following orders were created for panel order CBC with platelet count + automated diff. Procedure Abnormality Status --------- ------ CBC with platelet count ...[[id number]]AbnormalFinal result Manual Differential[[id number]] Please view results for these tests on the individual orders. Prepare Leuko-Red RBC (07/16/2017 11:54 PM)Only the most recent of6 resultswithin the time period is included. Component Value Ref Range CROSSMATCH COMPATIBLE Unit ABO A Pos UNIT NUMBER [id number] Status TRANSFUSED Blood Bank Product RED BLOOD CELLS PRODUCT CODE G1713T03 CROSSMATCH COMPATIBLE Unit ABO A Pos UNIT NUMBER [id number] Status TRANSFUSED Blood Bank Product RED BLOOD CELLS PRODUCT CODE [id number] Specimen Performing Laboratory Other [employer] [place] Hemoglobin and hematocrit (07/16/2017 2:18 PM)Only the most recent of5 resultswithin the time period is included. Component Value Ref Range Hemoglobin 9.3 (L) 11.2 - 15.7 GM/DL Hematocrit 28.7 (L) 34.1 - 44.9 % Specimen Performing Laboratory Blood [address] [address] Glucose-Stat Lab (07/15/2017 12:25 PM)Only the most recent of6 resultswithin the time period is included. Component Value Ref Range Glucose 90 70 - 110 mg/dL Specimen Performing Laboratory Blood, Arterial - Line, Arterial [address] [address] HGB/HCT (H&H)-Stat Lab (07/15/2017 12:25 PM)Only the most recent of6 resultswithin the time period is included. Component Value Ref Range Hemoglobin 10.2 (L) 12.0 - 15.0 g/dL Hematocrit 30.0 (L) 36.0 - 45.0 % Specimen Performing Laboratory Blood, Arterial - Line, Arterial [address] [address] Transfuse Leuko-Red RBC (07/15/2017 11:31 AM)Only the most recent of11 resultswithin the time period is included.Type and screen, automated (2016 8:42 AM)Only the most recent of2 resultswithin the time period is included. Component Value Ref Range ABO/RH AUTOMATED (BEAKER) A POSITIVE Ab Scrn NEGATIVE Specimen Performing Laboratory Blood [address] [address] ECG 12 lead (07/13/2017 8:53 AM)Only the most recent of2 resultswithin the time period is included. Specimen Performing Laboratory GE MUSE Narrative Ventricular Rate 99 BPM Atrial Rate 99 BPM P-R Interval 138 ms QRS Duration 86 ms Q-T Interval 356 ms QTC Calculation(Bazett) 456 ms P [place] 58 degrees R [place] 13 degrees T [place] 77 degrees Poor data quality, interpretation may [...] External Ris In - 07/15/2017 8:25 AM BIOMEDICAL SPECIALIST Ventricular Rate 99 BPM Atrial Rate 99 BPM P-R Interval 138 ms QRS Duration 86 ms Q-T Interval 356 ms QTC Calculation(Bazett) 456 ms P [place] 58 degrees R [place] 13 degrees T [place] 77 degrees Poor data quality, interpretation may [...] shortened Confirmed by MD DEVINE JOSEPH P ([id number]) on 07/15/2017 8:25:38 AM Potassium-Stat Lab (07/13/2017 7:59 AM)Only the most recent of4 resultswithin the time period is included. Component Value Ref Range Potassium 5.2 3.6 - 5.5 meq/L Specimen Performing Laboratory Blood, Arterial - Line, Arterial [address] [address] Calcium, Ionized (07/13/2017 7:59 AM)Only the most recent of5 resultswithin the time period is included. Component Value Ref Range Calcium, Ion 1.24 1.12 - 1.27 mmol/L pH, Blood 7.19 Specimen Performing Laboratory Blood - Line, [address] [address] Fibrinogen (07/13/2017 7:59 AM) Component Value Ref Range Fibrinogen 282 225 - 434 mg/dl Specimen Performing Laboratory Blood - Line, Arterial [address] [address] [facility] CRITICAL LABS (ABG,NA,K,H&H,GLUCOSE) (07/12/2017 2:08 PM)Only the most recent of3 resultswithin the time period is included. Specimen Performing Laboratory Blood, Arterial Narrative The following orders were created for panel order [facility] CRITICAL LABS (ABG,NA,K,H&H,GLUCOSE). Procedure Abnormality Status --------- ------ Blood gas, arterial[[id number]]AbnormalFinal result Sodium Na-Stat Lab[[id number]] NormalFinal result Potassium-Stat Lab[[id number]] NormalFinal result Glucose-Stat Lab[[id number]] AbnormalFinal result HGB/HCT (H&H)-Stat Lab[[id number]] Abnormal Final result Please view results for these tests on the individual orders. Sodium Na-Stat Lab (07/12/2017 2:08 PM)Only the most recent of3 resultswithin the time period is included. Component Value Ref Range Sodium 135 135 - 148 meq/L Specimen Performing Laboratory Blood, Arterial [address] [address] Platelet Aggregation: Function Screen (07/12/2017 11:25 AM)Only the most recent of2 resultswithin the time period is included. Component Value Ref Range Weak ADP 70 60 - 91 % Plt. Function Screen Interpretation 60-100% indicates normal platelet function Pathologist: Romel Hamilton MD (electronic signature) Platelets 231 150 - 450 K/CU MM Specimen Performing Laboratory Blood [address] [address] Prepare RBC (07/12/2017 11:06 AM) Component Value Ref Range CROSSMATCH COMPATIBLE Unit ABO A Pos UNIT NUMBER [id number] Status RETURNED FROM ISSUE Blood Bank Product RED BLOOD CELLS PRODUCT CODE [id number] CROSSMATCH COMPATIBLE Unit ABO A Pos UNIT NUMBER [id number] Status RETURNED FROM ISSUE Blood Bank Product RED BLOOD CELLS PRODUCT CODE [id number] Specimen Performing Laboratory [employer] [place] POC ACTIVATED CLOTTING TIME (07/12/2017 9:55 AM)Only the most recent of3 resultswithin the time period is included. Component Value Ref Range Activated Clotting Time 164Comment: TESTED AT [address] sec [id number] Specimen Performing Laboratory Blood [address] [address] PT/aPTT (07/12/2017 4:01 AM)Only the most recent of2 resultswithin the time period is included. Component Value Ref Range Protime 13.0 11.7 - 14.7 seconds INR 1.0 <=5.9 PTT 29.2 22.5 - 36.0 seconds Specimen Performing Laboratory Blood - Arm, Right [address] [address] Narrative RECOMMENDED COUMADIN/WARFARIN INR THERAPY RANGES STANDARD DOSE: 2.0 - 3.0 Includes: PROPHYLAXIS for venous thrombosis, systemic embolization; TREATMENT for venous thrombosis and/or pulmonary embolus. HIGH RISK: Target INR is 2.5-3.5 for patients with mechanical heart valves. Urinalysis w/Microscopic + Reflex to Culture (07/10/2017 2:34 PM) Component Value Ref Range Color, UA Yellow Clarity, UA Clear Specific [place], UA 1.049 (H) 1.001 - 1.035 pH, [...] Specimen Performing Laboratory Urine - Urine, Voided [address] [address] PFA-100 (07/10/2017 11:32 AM) Component Value Ref Range COL/EPI Closure Time >300 (H) 78 - 191 Seconds COL/ADP Closure Time 76 43 - 122 Seconds Platelets 188 150 - 450 K/CU MM Specimen Performing Laboratory Blood [address] [address] ECHOCARDIOGRAM REPORT - SCAN (07/10/2017 9:23 AM)B-type Natriuretic Factor (BNP ) (07/10/2017 8:10 AM)Only the most recent of2 resultswithin the time period is included. Component Value Ref Range BNP 86 0 - 100 pg/mL Specimen Performing Laboratory Blood [facility] [address] [address] 2D Echo W/Doppler(CW/PW/Color) (07/10/2017 3:24 AM) Component Value Ref Range Ejection Fraction Specimen Performing Laboratory SLE ECHO HEARTLAB MKCKESSON CPACS Narrative Transthoracic Echocardiography Report (TTE) Demographics Patient Name APARNA MOTA Date of Study 07/10/2017 LESVIA [id number] Female Visit Number [id number] Room Number 7A07 Number Date of Birth1955Referring Physician Sammie Lyle Age61 year(s)Damper Worker Ángel Barker, [facility] AnalystAlex Jennifer InterpretingPhysician EMELI Garner Procedure Type [...] normal (55-60%) . Left AtriumLA size is fmng-[id number]-awlfmndgsc enlarged . Right VentricleNormal right ventricle structure [...] External Ris In - 07/10/2017 9:00 AM BIOMEDICAL SPECIALIST Transthoracic Echocardiography Report (TTE) Demographics Patient Name APARNA MOTA Date of Study 07/10/2017 LESVIA Gender Female Visit Number [id number] Race Unknown Room Number 7A07 Number Date of 1955 Referring Physician Sammie Lyle Age 61 year(s) Damper Worker Ángel Barker, [facility] Supervisor [employer] Niraj Rodriguez Interpreting Physician EMELI Garner Procedure [...] (55-60%) . Left Atrium LA size is pvss-jn-twruywnjbk enlarged . Right Ventricle Normal right ventricle [...] 6.47 l/min LVOT CI: 3.2 l/min/m^2 after 06/09/2017
--- OUTSIDE RECORDS SUMMARY | 2018-06-10 18:09 | XMS REPORT ---
:1955 [facility] Address [address] [place] [address] [address] Care Team Providers Name Role Phone TYSON [...] PATIENT ID: FOR DISSECTION , r/o Endoleak [id number] Addendum: I agree with the previously described non vascular findings. Signed: Rachna Watson MDReport Verified Date/Time: 08/06/2017 10:39:07 Reading Location: [place] [address] Angio Body Reading RoomAddendum EndsFINAL REPORT CT [...] of the progression/resolution of the haematoma. Surgical casting house worker was paged to inform this finding at the time of dictation. Dr. Dyer was contacted to discuss this finding. 5. An addendum will be dictated by the Taker Down Radiologist regarding the nonvascular findings. Signed: Willis Washington Verified Date/Time: 08/05/2017 19:03:58 Reading Location: [place] [address] Cardiology MRI -GLUCOSE METER 2017-08-05 13:04:00 Test Item Value Reference Range Comments POC-GLUCOSE METER (BEAKER) (test 100 mg/dL 70-[address] [facility] [address] [facility] ojxr=3658) [facility] [address] RAD, CHEST, 1 VIEW, NON [id number] 08:46:00Reason for exam:->s/p TEVAR with linesShould this [...] Trimble Verified Date/Time: 08/05/2017 08:46:21 Reading Location: [facility] Radiology Reading Room Electronically signed by: GONZALEZ TRIMBLE M.D. on 08:46 AMPOCT-GLUCOSE [id number] 08:11:00 Test Item Value Reference Range Comments POC-GLUCOSE METER (BEAKER) 111 mg/dL 70-[address] [facility] [address] (test qlca=1158) [facility] [address] [id number] 07:30:00 Test Item Value Reference Range Comments PHOSPHORUS (BEAKER) (test ycky=148) 4.1 mg/dL 2.3-4.7 [id number] 07:30:00 Test Item Value Reference Range Comments MAGNESIUM (BEAKER) (test ekcs=019) 1.6 mg/dL 1.6-2.6 BASIC METABOLIC [id number] 07:30:00 Test Item Value Reference Range Comments SODIUM (BEAKER) (test 138 meq/L 136-145 bvtk=217) POTASSIUM (BEAKER) (test 4.5 meq/L 3.5-5.1 jxga=631) CHLORIDE (BEAKER) (test 106 meq/L 98-107 knxa=982) CO2 (BEAKER) (test 23 meq/L 22-29 yhmu=778) BLOOD UREA NITROGEN 12 mg/dL 7-21 (BEAKER) (test kndz=582) CREATININE (BEAKER) (test 1.05 mg/dL 0.57-1.25 ehno=005) GLUCOSE RANDOM (BEAKER) 105 mg/dL 70-105 (test uqsy=613) CALCIUM (BEAKER) (test 9.3 mg/dL 8.4-10.2 sega=819) EGFR (BEAKER) (test 53 mL/min/1.73 sq m ESTIMATED GFR IS NOT ineb=1692) ACCURATE CREATININE CLEARANCE IN PREDICTING GLOMERULAR FILTRATION RATE. ESTIMATED GFR IS NOT APPLICABLE FOR DIALYSIS PATIENTS. [id number] 06:50:00 Test Item Value Reference Range Comments PARTIAL THROMBOPLASTIN TIME (BEAKER) (test 30.7 seconds 22.5-36.0 zaup=875) PROTHROMBIN [id number] 06:49:00 Test Item Value Reference Range Comments PROTIME (BEAKER) (test fuog=855) 13.2 seconds 11.7-14.7 INR (BEAKER) (test wtmy=048) 1.0 <=5.9 RECOMMENDED COUMADIN/WARFARIN INR THERAPY RANGESSTANDARD DOSE: 2.0 - 3.0 Includes: PROPHYLAXIS forvenous thrombosis, systemic embolization; TREATMENT for venous thrombosis and/or pulmonary embolus.HIGH RISK: Target INR is 2.5-3.5 for patients with mechanical heart valves.CBC (HEMOGRAM ONLY)2017-08-05 06:36:00 Test Item Value Reference Range Comments WHITE BLOOD CELL COUNT (BEAKER) (test httf=948) 5.5 K/ L 3.5-10.5 RED BLOOD CELL COUNT (BEAKER) (test isok=875) 3.13 M/ L 3.93-5.22 HEMOGLOBIN (BEAKER) (test oifa=621) 9.1 GM/DL 11.2-15.7 HEMATOCRIT (BEAKER) (test kffw=258) 30.2 % 34.1-44.9 MEAN CORPUSCULAR VOLUME (BEAKER) (test vksd=940) 96.5 fL 79.4-94.8 MEAN CORPUSCULAR HEMOGLOBIN (BEAKER) (test 29.1 pg 25.6-32.2 ubwr=729) MEAN CORPUSCULAR HEMOGLOBIN CONC (BEAKER) (test 30.1 GM/DL 32.2-35.5 lggc=188) RED CELL DISTRIBUTION WIDTH (BEAKER) (test 17.2 % 11.7-14.4 ksja=563) PLATELET COUNT (BEAKER) (test reni=428) 186 K/CU MM 150-450 MEAN PLATELET VOLUME (BEAKER) (test kxli=175) 12.0 fL 9.4-12.3 NUCLEATED RED BLOOD CELLS (BEAKER) (test 0 /100 WBC 0-0 srll=816) POCT-GLUCOSE [id number] 18:25:00 Test Item Value Reference Range Comments POC-GLUCOSE METER (BEAKER) 123 mg/dL 70-[address] [facility] [address] [facility] (test wysa=1584) [facility] [address] POCT-GLUCOSE [id number] 13:07:00 Test Item Value Reference Range Comments POC-GLUCOSE METER (BEAKER) 154 mg/dL 70-110 TESTED AT [place] [id number] [facility] (test qkxm=5470) [facility] [address] RAD, CHEST, 1 VIEW, NON [id number] 08:22:00Reason for exam:->s/p TEVAR with linesShould this be performed at the bedside?->YesFINAL REPORT Chest one view compared to August 03 Discussion: Right PICC line and descending thoracic aorta after noted. Lungs clear. Heart size normal. No effusion or pneumothorax. Signed: Tad Frosteport Verified Date/Time: 08/04/2017 08:22:31 Reading Location: [address] Neuro Reading Room POCT- GLUCOSE [id number] 07:54:00 Test Item Value Reference Range Comments POC-GLUCOSE METER (BEAKER) 113 mg/dL 70-[address] [facility] [address] [facility] (test kpox=9616) [facility] [address] [id number] 06:16:00 Test Item Value Reference Range Comments PHOSPHORUS (BEAKER) (test yfat=468) 3.8 mg/dL 2.3-4.7 [id number] 06:16:00 Test Item Value Reference Range Comments MAGNESIUM (BEAKER) (test hxvz=493) 1.7 mg/dL 1.6-2.6 BASIC METABOLIC [id number] 06:16:00 Test Item Value Reference Range Comments SODIUM (BEAKER) (test 137 meq/L 136-145 sybo=928) POTASSIUM (BEAKER) (test 4.4 meq/L 3.5-5.1 vrav=771) CHLORIDE (BEAKER) (test 106 meq/L 98-107 wcgr=079) CO2 (BEAKER) (test 23 meq/L 22-29 ogez=208) BLOOD UREA NITROGEN 12 mg/dL 7-21 (BEAKER) (test kspt=712) CREATININE (BEAKER) (test 0.90 mg/dL 0.57-1.25 mahs=547) GLUCOSE RANDOM (BEAKER) 99 mg/dL 70-105 (test nozz=783) CALCIUM (BEAKER) (test 9.3 mg/dL 8.4-10.2 yypa=970) EGFR (BEAKER) (test 63 mL/min/1.73 sq m ESTIMATED GFR IS NOT cvnd=9358) ACCURATE CREATININE CLEARANCE IN PREDICTING GLOMERULAR FILTRATION RATE. ESTIMATED GFR IS NOT APPLICABLE FOR DIALYSIS PATIENTS. [id number] 05:49:00 Test Item Value Reference Range Comments PARTIAL THROMBOPLASTIN TIME (BEAKER) (test 31.2 seconds 22.5-36.0 umck=543) PROTHROMBIN [id number] 05:48:00 Test Item Value Reference Range Comments PROTIME (BEAKER) (test wojk=927) 13.8 seconds 11.7-14.7 INR (BEAKER) (test ymyc=261) 1.1 <=5.9 RECOMMENDED COUMADIN/WARFARIN INR THERAPY RANGESSTANDARD DOSE: 2.0 - 3.0 Includes: PROPHYLAXIS forvenous thrombosis, systemic embolization; TREATMENT for venous thrombosis and/or pulmonary embolus.HIGH RISK: Target INR is 2.5-3.5 for patients with mechanical heart valves.CBC (HEMOGRAM ONLY)2017-08-04 05:23:00 Test Item Value Reference Range Comments WHITE BLOOD CELL COUNT (BEAKER) (test kmzc=230) 4.7 K/ L 3.5-10.5 RED BLOOD CELL COUNT (BEAKER) (test cirb=359) 3.05 M/ L 3.93-5.22 HEMOGLOBIN (BEAKER) (test xhfs=868) 9.0 GM/DL 11.2-15.7 HEMATOCRIT (BEAKER) (test rcjq=041) 29.2 % 34.1-44.9 MEAN CORPUSCULAR VOLUME (BEAKER) (test lueq=563) 95.7 fL 79.4-94.8 MEAN CORPUSCULAR HEMOGLOBIN (BEAKER) (test 29.5 pg 25.6-32.2 ostn=582) MEAN CORPUSCULAR HEMOGLOBIN CONC (BEAKER) (test 30.8 GM/DL 32.2-35.5 jwbz=123) RED CELL DISTRIBUTION WIDTH (BEAKER) (test 16.9 % 11.7-14.4 gfsy=357) PLATELET COUNT (BEAKER) (test qnkg=056) 182 K/CU MM 150-450 MEAN PLATELET VOLUME (BEAKER) (test wwei=582) 11.9 fL 9.4-12.3 NUCLEATED RED BLOOD CELLS (BEAKER) (test 0 /100 WBC 0-0 nuoz=664) BLOOD [id number] 23:00:00 Test Item Value Reference Range Comments CULTURE (BEAKER) (test rwon=3937) No growth in 5 days BLOOD [id number] 23:00:00 Test Item Value Reference Range Comments CULTURE (BEAKER) (test ubda=9836) No growth in 5 days POCT-GLUCOSE [id number] 21:48:00 Test Item Value Reference Range Comments POC-GLUCOSE METER (BEAKER) 131 mg/dL 70-110 TESTED AT [address] (test enfj=2853) [facility] [address] POCT-GLUCOSE [id number] 18:12:00 Test Item Value Reference Range Comments POC-GLUCOSE METER (BEAKER) 106 mg/dL 70-110 TESTED AT [address] (test nxna=0973) [facility] [address] BLOOD [id number] 10:00:00 Test Item Value Reference Range Comments CULTURE (BEAKER) (test cfhl=6977) No growth in 5 days RAD, CHEST, 1 VIEW, NON [id number] 08:58:00Reason for exam:->s/p TEVAR with linesShould this be performed at the bedside?->YesFINAL REPORT Chest one view compared to August 02 Discussion: Descending aortic grafts and right-sided PICC line are again noted. Lungs clear. No effusion or pneumothorax. Signed: Tad Frost Verified Date/Time: 04/2017 08:58:38 Reading Location: [address] Reading Room POCT- GLUCOSE [id number] 08:18:00 Test Item Value Reference Range Comments POC-GLUCOSE METER (BEAKER) 144 mg/dL 70-110 TESTED AT [address] (test vjay=4251) [facility] [address] [id number] 05:30:00 Test Item Value Reference Range Comments PHOSPHORUS (BEAKER) (test kzer=720) 4.0 mg/dL 2.3-4.7 [id number] 05:30:00 Test Item Value Reference Range Comments MAGNESIUM (BEAKER) (test tfqg=919) 1.9 mg/dL 1.6-2.6 BASIC METABOLIC [id number] 05:30:00 Test Item Value Reference Range Comments SODIUM (BEAKER) (test 140 meq/L 136-145 vwzb=406) POTASSIUM (BEAKER) (test 4.3 meq/L 3.5-5.1 njtu=396) CHLORIDE (BEAKER) (test 108 meq/L 98-107 qbdx=259) CO2 (BEAKER) (test 23 meq/L 22-29 gwcv=486) BLOOD UREA NITROGEN 13 mg/dL 7-21 (BEAKER) (test ezxz=978) CREATININE (BEAKER) (test 0.91 mg/dL 0.57-1.25 fdug=204) GLUCOSE RANDOM (BEAKER) 117 mg/dL 70-105 (test kkeg=676) CALCIUM (BEAKER) (test 9.4 mg/dL 8.4-10.2 skig=371) EGFR (BEAKER) (test 63 mL/min/1.73 sq m ESTIMATED GFR IS NOT rzdc=7642) ACCURATE CREATININE CLEARANCE IN PREDICTING GLOMERULAR FILTRATION RATE. ESTIMATED GFR IS NOT APPLICABLE FOR DIALYSIS PATIENTS. [id number] 05:02:00 Test Item Value Reference Range Comments PARTIAL THROMBOPLASTIN TIME (BEAKER) (test 32.3 seconds 22.5-36.0 bbbg=783) CBC (HEMOGRAM ONLY)2017-08-03 05:01:00 Test Item Value Reference Range Comments WHITE BLOOD CELL COUNT (BEAKER) (test wicz=959) 5.0 K/ L 3.5-10.5 RED BLOOD CELL COUNT (BEAKER) (test rxjh=129) 3.13 M/ L 3.93-5.22 HEMOGLOBIN (BEAKER) (test kkaz=247) 9.3 GM/DL 11.2-15.7 HEMATOCRIT (BEAKER) (test fshn=550) 29.9 % 34.1-44.9 MEAN CORPUSCULAR VOLUME (BEAKER) (test mrwf=864) 95.5 fL 79.4-94.8 MEAN CORPUSCULAR HEMOGLOBIN (BEAKER) (test 29.7 pg 25.6-32.2 nuza=676) MEAN CORPUSCULAR HEMOGLOBIN CONC (BEAKER) (test 31.1 GM/DL 32.2-35.5 vkkh=542) RED CELL DISTRIBUTION WIDTH (BEAKER) (test 16.8 % 11.7-14.4 ghhj=827) PLATELET COUNT (BEAKER) (test ugxm=843) 195 K/CU MM 150-450 MEAN PLATELET VOLUME (BEAKER) (test pdgk=100) 12.1 fL 9.4-12.3 NUCLEATED RED BLOOD CELLS (BEAKER) (test 0 /100 WBC 0-0 zzcu=291) PROTHROMBIN [id number] 05:01:00 Test Item Value Reference Range Comments PROTIME (BEAKER) (test xlvq=913) 13.8 seconds 11.7-14.7 INR (BEAKER) (test buaq=344) 1.1 <=5.9 RECOMMENDED COUMADIN/WARFARIN INR THERAPY RANGESSTANDARD DOSE: 2.0 - 3.0 Includes: PROPHYLAXIS forvenous thrombosis, systemic embolization; TREATMENT for venous thrombosis and/or pulmonary embolus.HIGH RISK: Target INR is 2.5-3.5 for patients with mechanical heart valves.POCT-GLUCOSE [id number] 21:22:00 Test Item Value Reference Range Comments POC-GLUCOSE METER (BEAKER) 138 mg/dL 70-110 TESTED AT [address] (test ihpl=0277) [place] [address] POCT-GLUCOSE [id number] 18:28:00 Test Item Value Reference Range Comments POC-GLUCOSE METER (BEAKER) 160 mg/dL 70-110 TESTED AT [address] (test cbzb=4618) [place] [id number] POCT-GLUCOSE [id number] 12:23:00 Test Item Value Reference Range Comments POC-GLUCOSE METER (BEAKER) 141 mg/dL 70-110 TESTED AT [address] (test ruyv=3271) [place] [address] RAD, CHEST, 1 VIEW, NON [id number] 11:08:00Reason for exam:->post picc line insertionShould this [...] MDReport Verified Date/Time: 08/02/2017 11:08:46 Reading Location: [facility] Radiology Reading Room BLOOD [id number] 11:00:00 Test Item Value Reference Range Comments CULTURE (BEAKER) From Anaerobic Bottle Only (test husr=9490) Same organism has been isolated from cultures(s) of the same body site within 3 days. Repeat identification and susceptibility testing performed only after consultation with the clinical microbiology laboratory.Refer to previous culture ofCoagulase negative Staphylococcus GRAM STAIN RESULT From anaerobic bottle (BEAKER) (test only: gram positive njoy=2781) cocci in clusters BLOOD [id number] 10:00:00 Test Item Value Reference Range Comments CULTURE (BEAKER) (test ycmy=0055) No growth in 5 days RAD, CHEST, 1 VIEW, NON [id number] 09:02:00Reason for exam:->s/p TEVAR with linesShould this [...] [facility] Radiology Reading Room POCT- GLUCOSE [id number] 08:54:00 Test Item Value Reference Range Comments POC-GLUCOSE METER (BEAKER) 129 mg/dL 70-[address] [facility] [address] [place] [address] (test rclu=2376) [facility] [address] [id number] 06:06:00 Test Item Value Reference Range Comments PHOSPHORUS (BEAKER) (test dugp=039) 3.4 mg/dL 2.3-4.7 [id number] 06:06:00 Test Item Value Reference Range Comments MAGNESIUM (BEAKER) (test gjba=748) 1.4 mg/dL 1.6-2.6 BASIC METABOLIC [id number] 06:06:00 Test Item Value Reference Range Comments SODIUM (BEAKER) (test 137 meq/L 136-145 qfrh=345) POTASSIUM (BEAKER) (test 4.2 meq/L 3.5-5.1 ixyj=146) CHLORIDE (BEAKER) (test 106 meq/L 98-107 yjrv=568) CO2 (BEAKER) (test 24 meq/L 22-29 tynr=239) BLOOD UREA NITROGEN 17 mg/dL 7-21 (BEAKER) (test xjvv=362) CREATININE (BEAKER) (test 0.91 mg/dL 0.57-1.25 ljfd=954) GLUCOSE RANDOM (BEAKER) 123 mg/dL 70-105 (test zetc=118) CALCIUM (BEAKER) (test 9.2 mg/dL 8.4-10.2 ruwl=456) EGFR (BEAKER) (test 63 mL/min/1.73 sq m ESTIMATED GFR IS NOT rbmx=5032) ACCURATE CREATININE CLEARANCE IN PREDICTING GLOMERULAR FILTRATION RATE. ESTIMATED GFR IS NOT APPLICABLE FOR DIALYSIS PATIENTS. PROTHROMBIN [id number] 05:23:00 Test Item Value Reference Range Comments PROTIME (BEAKER) (test nrfq=045) 13.2 seconds 11.7-14.7 INR (BEAKER) (test tdff=042) 1.0 <=5.9 RECOMMENDED COUMADIN/WARFARIN INR THERAPY RANGESSTANDARD DOSE: 2.0 - 3.0 Includes: PROPHYLAXIS forvenous thrombosis, systemic embolization; TREATMENT for venous thrombosis and/or pulmonary embolus.HIGH RISK: Target INR is 2.5-3.5 for patients with mechanical heart valves.[id number] 05:23:00 Test Item Value Reference Range Comments PARTIAL THROMBOPLASTIN TIME (BEAKER) (test 29.1 seconds 22.5-36.0 adle=591) CBC (HEMOGRAM ONLY)2017-08-02 05:16:00 Test Item Value Reference Range Comments WHITE BLOOD CELL COUNT (BEAKER) (test ycdm=241) 4.8 K/ L 3.5-10.5 RED BLOOD CELL COUNT (BEAKER) (test khzp=581) 3.22 M/ L 3.93-5.22 HEMOGLOBIN (BEAKER) (test gtow=624) 9.4 GM/DL 11.2-15.7 HEMATOCRIT (BEAKER) (test oyii=651) 30.6 % 34.1-44.9 MEAN CORPUSCULAR VOLUME (BEAKER) (test iqiy=976) 95.0 fL 79.4-94.8 MEAN CORPUSCULAR HEMOGLOBIN (BEAKER) (test 29.2 pg 25.6-32.2 baoh=318) MEAN CORPUSCULAR HEMOGLOBIN CONC (BEAKER) (test 30.7 GM/DL 32.2-35.5 zlsi=731) RED CELL DISTRIBUTION WIDTH (BEAKER) (test 16.6 % 11.7-14.4 anns=099) PLATELET COUNT (BEAKER) (test epwf=444) 197 K/CU MM 150-450 MEAN PLATELET VOLUME (BEAKER) (test todu=857) 12.1 fL 9.4-12.3 NUCLEATED RED BLOOD CELLS (BEAKER) (test 0 /100 WBC 0-0 gkcs=620) POCT-GLUCOSE [id number] 21:07:00 Test Item Value Reference Range Comments POC-GLUCOSE METER (BEAKER) 165 mg/dL 70-110 TESTED AT [address] (test xrbi=7184) [facility] [address] VANCOMYCIN LEVEL, [id number] 20:31:00 Test Item Value Reference Range Comments VANCOMYCIN TROUGH (BEAKER) (test jvor=423) 12.2 ug/mL 10.0-20.0 POCT-GLUCOSE [id number] 17:41:00 Test Item Value Reference Range Comments POC-GLUCOSE METER (BEAKER) 141 mg/dL 70-110 TESTED AT [address] (test claj=4193) [facility] [address] POCT-GLUCOSE [id number] 12:07:00 Test Item Value Reference Range Comments POC-GLUCOSE METER (BEAKER) 217 mg/dL 70-110 TESTED AT [address] (test thyz=1613) [facility] [address] RAD, CHEST, 1 VIEW, NON [id number] 09:13:00Reason for exam:->s/p TEVAR with linesShould this [...] Avalos Verified Date/Time: 08/01/2017 09:13:59 Reading Location: [facility] Radiology Reading Room POCT- GLUCOSE [id number] 08:36:00 Test Item Value Reference Range Comments POC-GLUCOSE METER (BEAKER) 158 mg/dL 70-[address] [facility] [address] (test qldz=3435) [facility] [address] PROTHROMBIN [id number] 07:04:00 Test Item Value Reference Range Comments PROTIME (BEAKER) (test lmgw=874) 13.5 seconds 11.7-14.7 INR (BEAKER) (test vfit=050) 1.0 <=5.9 RECOMMENDED COUMADIN/WARFARIN INR THERAPY RANGESSTANDARD DOSE: 2.0 - 3.0 Includes: PROPHYLAXIS forvenous thrombosis, systemic embolization; TREATMENT for venous thrombosis and/or pulmonary embolus.HIGH RISK: Target INR is 2.5-3.5 for patients with mechanical heart valves.[id number] 07:04:00 Test Item Value Reference Range Comments PARTIAL THROMBOPLASTIN TIME (BEAKER) (test 31.3 seconds 22.5-36.0 phgd=630) [id number] 05:38:00 Test Item Value Reference Range Comments PHOSPHORUS (BEAKER) (test qhhf=987) 3.2 mg/dL 2.3-4.7 [id number] 05:38:00 Test Item Value Reference Range Comments MAGNESIUM (BEAKER) (test dyss=699) 1.8 mg/dL 1.6-2.6 BASIC METABOLIC [id number] 05:38:00 Test Item Value Reference Range Comments SODIUM (BEAKER) (test 140 meq/L 136-145 eism=076) POTASSIUM (BEAKER) (test 4.0 meq/L 3.5-5.1 gcfv=583) CHLORIDE (BEAKER) (test 106 meq/L 98-107 ipmj=086) CO2 (BEAKER) (test 24 meq/L 22-29 vuar=483) BLOOD UREA NITROGEN 21 mg/dL 7-21 (BEAKER) (test fwca=132) CREATININE (BEAKER) (test 0.95 mg/dL 0.57-1.25 mrgs=398) GLUCOSE RANDOM (BEAKER) 127 mg/dL 70-105 (test vrhs=868) CALCIUM (BEAKER) (test 9.2 mg/dL 8.4-10.2 rwrw=090) EGFR (BEAKER) (test 60 mL/min/1.73 sq m ESTIMATED GFR IS NOT kror=7835) ACCURATE CREATININE CLEARANCE IN PREDICTING GLOMERULAR FILTRATION RATE. ESTIMATED GFR IS NOT APPLICABLE FOR DIALYSIS PATIENTS. CBC (HEMOGRAM ONLY)2017-08-01 05:02:00 Test Item Value Reference Range Comments WHITE BLOOD CELL COUNT (BEAKER) (test geib=662) 5.5 K/ L 3.5-10.5 RED BLOOD CELL COUNT (BEAKER) (test snul=354) 3.37 M/ L 3.93-5.22 HEMOGLOBIN (BEAKER) (test wawh=896) 9.9 GM/DL 11.2-15.7 HEMATOCRIT (BEAKER) (test rimv=420) 31.9 % 34.1-44.9 MEAN CORPUSCULAR VOLUME (BEAKER) (test vepv=390) 94.7 fL 79.4-94.8 MEAN CORPUSCULAR HEMOGLOBIN (BEAKER) (test 29.4 pg 25.6-32.2 jjgd=065) MEAN CORPUSCULAR HEMOGLOBIN CONC (BEAKER) (test 31.0 GM/DL 32.2-35.5 psgt=856) RED CELL DISTRIBUTION WIDTH (BEAKER) (test 16.3 % 11.7-14.4 sfvg=740) PLATELET COUNT (BEAKER) (test xgrd=239) 199 K/CU MM 150-450 MEAN PLATELET VOLUME (BEAKER) (test tobv=854) 12.5 fL 9.4-12.3 NUCLEATED RED BLOOD CELLS (BEAKER) (test 0 /100 WBC 0-0 rfxy=752) BLOOD [id number] 23:00:00 Test Item Value Reference Range Comments CULTURE (BEAKER) (test fhkq=4248) No growth in 5 days POCT-GLUCOSE [id number] 20:45:00 Test Item Value Reference Range Comments POC-GLUCOSE METER (BEAKER) 160 mg/dL 70-110 TESTED AT [address] (test zuag=2568) [facility] [address] POCT-GLUCOSE [id number] 17:17:00 Test Item Value Reference Range Comments POC-GLUCOSE METER (BEAKER) 165 mg/dL 70-110 TESTED AT [address] (test kaiz=2967) [place] [address] RAD, CHEST, 1 VIEW, NON [id number] 13:48:00Reason for exam:->s/p TEVAR with linesShould this [...] Shepard Verified Date/Time: 2016 13:48:33 Reading Location: [facility] C0W Consult Reading Room POCT-GLUCOSE [id number] 11:51:00 Test Item Value Reference Range Comments POC-GLUCOSE METER (BEAKER) 139 mg/dL 70-110 TESTED AT [place] [id number] [facility] (test ahao=7331) [facility] [address] POCT-GLUCOSE [id number] 09:01:00 Test Item Value Reference Range Comments POC-GLUCOSE METER (BEAKER) 152 mg/dL 70-[address] [facility] [address] (test foit=4560) [facility] [address] [id number] 05:29:00 Test Item Value Reference Range Comments PHOSPHORUS (BEAKER) (test lsdx=255) 3.8 mg/dL 2.3-4.7 [id number] 05:29:00 Test Item Value Reference Range Comments MAGNESIUM (BEAKER) (test qmsz=904) 1.9 mg/dL 1.6-2.6 BASIC METABOLIC [id number] 05:29:00 Test Item Value Reference Range Comments SODIUM (BEAKER) (test 139 meq/L 136-145 yaby=168) POTASSIUM (BEAKER) (test 3.8 meq/L 3.5-5.1 mdwp=330) CHLORIDE (BEAKER) (test 107 meq/L 98-107 cjze=704) CO2 (BEAKER) (test 25 meq/L 22-29 bjsz=268) BLOOD UREA NITROGEN 22 mg/dL 7-21 (BEAKER) (test gads=619) CREATININE (BEAKER) (test 0.86 mg/dL 0.57-1.25 ysgw=396) GLUCOSE RANDOM (BEAKER) 117 mg/dL 70-105 (test wynd=769) CALCIUM (BEAKER) (test 9.2 mg/dL 8.4-10.2 gvdx=753) EGFR (BEAKER) (test 67 mL/min/1.73 sq m ESTIMATED GFR IS NOT heva=4611) ACCURATE CREATININE CLEARANCE IN PREDICTING GLOMERULAR FILTRATION RATE. ESTIMATED GFR IS NOT APPLICABLE FOR DIALYSIS PATIENTS. [id number] 05:18:00 Test Item Value Reference Range Comments PARTIAL THROMBOPLASTIN TIME (BEAKER) (test 29.9 seconds 22.5-36.0 vmts=803) PROTHROMBIN TIME/[id number] 05:17:00 Test Item Value Reference Range Comments PROTIME (BEAKER) (test eigy=041) 13.4 seconds 11.7-14.7 INR (BEAKER) (test pljk=113) 1.0 <=5.9 RECOMMENDED COUMADIN/WARFARIN INR THERAPY RANGESSTANDARD DOSE: 2.0 - 3.0 Includes: PROPHYLAXIS forvenous thrombosis, systemic embolization; TREATMENT for venous thrombosis and/or pulmonary embolus.HIGH RISK: Target INR is 2.5-3.5 for patients with mechanical heart valves.CBC (HEMOGRAM ONLY)2017-07-31 05:02:00 Test Item Value Reference Range Comments WHITE BLOOD CELL COUNT (BEAKER) (test ujdt=297) 5.5 K/ L 3.5-10.5 RED BLOOD CELL COUNT (BEAKER) (test lkfi=883) 3.35 M/ L 3.93-5.22 HEMOGLOBIN (BEAKER) (test cmam=619) 9.8 GM/DL 11.2-15.7 HEMATOCRIT (BEAKER) (test pvyj=279) 31.7 % 34.1-44.9 MEAN CORPUSCULAR VOLUME (BEAKER) (test fpgi=049) 94.6 fL 79.4-94.8 MEAN CORPUSCULAR HEMOGLOBIN (BEAKER) (test 29.3 pg 25.6-32.2 ncow=220) MEAN CORPUSCULAR HEMOGLOBIN CONC (BEAKER) (test 30.9 GM/DL 32.2-35.5 lxil=812) RED CELL DISTRIBUTION WIDTH (BEAKER) (test 16.3 % 11.7-14.4 dkjx=676) PLATELET COUNT (BEAKER) (test fwqv=113) 206 K/CU MM 150-450 MEAN PLATELET VOLUME (BEAKER) (test saqs=990) 12.3 fL 9.4-12.3 NUCLEATED RED BLOOD CELLS (BEAKER) (test 0 /100 WBC 0-0 wefn=092) POCT-GLUCOSE [id number] 20:45:00 Test Item Value Reference Range Comments POC-GLUCOSE METER (BEAKER) 110 mg/dL 70-[address] [facility] [address] [facility] (test unjs=1622) [facility] [address] POCT-GLUCOSE [id number] 18:38:00 Test Item Value Reference Range Comments POC-GLUCOSE METER (BEAKER) 126 mg/dL 70-[address] [facility] [address] [place] [address] (test pvpx=0109) [facility] [address] FL, ESOPH, SWALLOW FUNCTION, WITH CINE OR [id number] 14:35:00Reason for exam:->AspirationFINAL REPORT Modified barium swallow [...] Verified Date/ Time: 07/30/2017 14:35:49 Reading Location: [address] Ortho Consult Reading Room POCT -GLUCOSE [id number] 12:14:00 Test Item Value Reference Range Comments POC-GLUCOSE METER (BEAKER) 172 mg/dL 70-110 TESTED AT [address] (test nywa=7704) [facility] [address] MISCELLANEOUS LAB [id number] 11:23:00 Test Item Value Reference Range Comments SCAN RESULT (test ckoo=[id number]) Result comments: Coagulase Negative Staphylococcus Species (CoNS) [...] required. This sample was tested at the [facility] using the [employer] Blood Culture ID Panel. This test is FDA cleared for in vitro diagnostic use and has been verified and approved by the [facility] for clinical use. Reference Range: Not DetectedRAD, CHEST, 1 VIEW, NON [id number] 05:19:00Reason for exam:->s/p TEVAR with linesShould this be performed at the bedside?->YesFINAL REPORT Comparison exam: 2016 Mild right basilar atelectasis unchanged. No pneumothorax. Normal cardiomediastinal contours. Right IJ line terminates in the right atrium. NG tube extends into the abdomen. Signed: Elliot Beyeport Verified Date /Time: 07/30/2017 05:19:21 Reading Location: [address] Ortho Consult Reading Room 05 :19 [id number] 04:50:00 Test Item Value Reference Range Comments PHOSPHORUS (BEAKER) (test sglb=937) 3.3 mg/dL 2.3-4.7 [id number] 04:50:00 Test Item Value Reference Range Comments MAGNESIUM (BEAKER) (test glol=366) 1.9 mg/dL 1.6-2.6 BASIC METABOLIC [id number] 04:50:00 Test Item Value Reference Range Comments SODIUM (BEAKER) (test 140 meq/L 136-145 ixwx=449) POTASSIUM (BEAKER) (test 3.9 meq/L 3.5-5.1 htqb=755) CHLORIDE (BEAKER) (test 106 meq/L 98-107 xpiz=556) CO2 (BEAKER) (test 26 meq/L 22-29 tldu=908) BLOOD UREA NITROGEN 30 mg/dL 7-21 (BEAKER) (test vidh=021) CREATININE (BEAKER) (test 0.91 mg/dL 0.57-1.25 nqxn=987) GLUCOSE RANDOM (BEAKER) 150 mg/dL 70-105 (test ssmv=167) CALCIUM (BEAKER) (test 9.0 mg/dL 8.4-10.2 gras=739) EGFR (BEAKER) (test 63 mL/min/1.73 sq m ESTIMATED GFR IS NOT xfdz=1926) ACCURATE CREATININE CLEARANCE IN PREDICTING GLOMERULAR FILTRATION RATE. ESTIMATED GFR IS NOT APPLICABLE FOR DIALYSIS PATIENTS. [id number] 04:37:00 Test Item Value Reference Range Comments PARTIAL THROMBOPLASTIN TIME (BEAKER) (test 28.1 seconds 22.5-36.0 cfkj=251) PROTHROMBIN TIME/[id number] 04:36:00 Test Item Value Reference Range Comments PROTIME (BEAKER) (test kukn=077) 13.1 seconds 11.7-14.7 INR (BEAKER) (test ccdy=651) 1.0 <=5.9 RECOMMENDED COUMADIN/WARFARIN INR THERAPY RANGESSTANDARD DOSE: 2.0 - 3.0 Includes: PROPHYLAXIS forvenous thrombosis, systemic embolization; TREATMENT for venous thrombosis and/or pulmonary embolus.HIGH RISK: Target INR is 2.5-3.5 for patients with mechanical heart valves.CBC (HEMOGRAM ONLY)2017-07-30 04:29:00 Test Item Value Reference Range Comments WHITE BLOOD CELL COUNT (BEAKER) (test xvdw=105) 5.9 K/ L 3.5-10.5 RED BLOOD CELL COUNT (BEAKER) (test wdtz=450) 3.26 M/ L 3.93-5.22 HEMOGLOBIN (BEAKER) (test arnw=710) 9.5 GM/DL 11.2-15.7 HEMATOCRIT (BEAKER) (test bbgn=823) 30.6 % 34.1-44.9 MEAN CORPUSCULAR VOLUME (BEAKER) (test qmpa=492) 93.9 fL 79.4-94.8 MEAN CORPUSCULAR HEMOGLOBIN (BEAKER) (test 29.1 pg 25.6-32.2 lsjr=666) MEAN CORPUSCULAR HEMOGLOBIN CONC (BEAKER) (test 31.0 GM/DL 32.2-35.5 isul=962) RED CELL DISTRIBUTION WIDTH (BEAKER) (test 15.9 % 11.7-14.4 rjhp=307) PLATELET COUNT (BEAKER) (test vjte=083) 202 K/CU MM 150-450 MEAN PLATELET VOLUME (BEAKER) (test fsge=609) 11.8 fL 9.4-12.3 NUCLEATED RED BLOOD CELLS (BEAKER) (test 0 /100 WBC 0-0 npjt=156) POCT-GLUCOSE [id number] 00:24:00 Test Item Value Reference Range Comments POC-GLUCOSE METER (BEAKER) 151 mg/dL 70-110 TESTED AT [address] (test udws=7264) [place] [address] VANCOMYCIN LEVEL, [id number] 21:58:00 Test Item Value Reference Range Comments VANCOMYCIN TROUGH (BEAKER) (test gtzv=946) 19.2 ug/mL 10.0-20.0 Please draw before administering night time vancomycin dosePOCT-GLUCOSE [id number] 18:28:00 Test Item Value Reference Range Comments POC-GLUCOSE METER (BEAKER) 170 mg/dL 70-110 TESTED AT [address] (test rjlt=4248) [place] [address] BLOOD [id number] 16:18:00 Test Item Value Reference Range Comments CULTURE (BEAKER) (test pirl=2707) Clindamycin (test code=10) Erythromycin (test code=4) Levofloxacin (test code=22) Linezolid (test code=40) Oxacillin (test code=14) Rifampin (test code=43) Tetracycline (test code=2) Trimethoprim + Sulfamethoxazole (test code=47) Vancomycin (test code=13) CULTURE (BEAKER) (test From Aerobic And tqny=4005) Anaerobic Bottles Coagulase negative Staphylococcus GRAM STAIN RESULT (BEAKER) From aerobic and (test tztt=4466) anaerobic bottles: gram positive cocci in clusters [...] required. This sample was tested at the [facility] using the DotGT Blood Culture ID Panel.This test is FDA cleared for in vitro diagnostic use and has been verified and approved by the [facility]. Reference Range: Not DetectedPOCT-GLUCOSE [id number] 13:00:00 Test Item Value Reference Range Comments POC-GLUCOSE METER (BEAKER) 153 mg/dL 70-[address] [facility] [address] [facility] (test spce=8061) [facility] [address] RAD, ABDOMEN/KUB, 1 VIEW [id number] 09:40:00Reason for exam:->reposition of NGTShould this be performed at the bedside?->YesFINAL REPORT Abdomen one view Comparison: July 22, 2017 Reason for exam: reposition of NGT Findings: Feeding tube projects over the expected location of distal gastric body.Gas pattern appears nonspecific. Signed: Eleazar Shepard Verified Date/Time: 07/29/2017 09:40:24 Reading Location: [facility] Radiology Reading Room Electronically signed by: ELEAZAR SHEPARD M.D. on 07/29 09:40 [id number] 05:06:00 Test Item Value Reference Range Comments PHOSPHORUS (BEAKER) (test zawb=665) 3.4 mg/dL 2.3-4.7 [id number] 05:06:00 Test Item Value Reference Range Comments MAGNESIUM (BEAKER) (test cfug=746) 2.1 mg/dL 1.6-2.6 BASIC METABOLIC [id number] 05:06:00 Test Item Value Reference Range Comments SODIUM (BEAKER) (test 143 meq/L 136-145 nhvt=843) POTASSIUM (BEAKER) (test 4.0 meq/L 3.5-5.1 frpr=368) CHLORIDE (BEAKER) (test 109 meq/L 98-107 mvax=404) CO2 (BEAKER) (test 27 meq/L 22-29 sthr=246) BLOOD UREA NITROGEN 40 mg/dL 7-21 (BEAKER) (test livw=709) CREATININE (BEAKER) (test 1.10 mg/dL 0.57-1.25 lxnn=593) GLUCOSE RANDOM (BEAKER) 164 mg/dL 70-105 (test ntep=072) CALCIUM (BEAKER) (test 9.2 mg/dL 8.4-10.2 kxhk=442) EGFR (BEAKER) (test 50 mL/min/1.73 sq m ESTIMATED GFR IS NOT wtal=8797) ACCURATE CREATININE CLEARANCE IN PREDICTING GLOMERULAR FILTRATION RATE. ESTIMATED GFR IS NOT APPLICABLE FOR DIALYSIS PATIENTS. PROTHROMBIN TIME/[id number] 04:55:00 Test Item Value Reference Range Comments PROTIME (BEAKER) (test iqbz=591) 13.5 seconds 11.7-14.7 INR (BEAKER) (test rcwh=314) 1.0 <=5.9 RECOMMENDED COUMADIN/WARFARIN INR THERAPY RANGESSTANDARD DOSE: 2.0 - 3.0 Includes: PROPHYLAXIS forvenous thrombosis, systemic embolization; TREATMENT for venous thrombosis and/or pulmonary embolus.HIGH RISK: Target INR is 2.5-3.5 for patients with mechanical heart valves.[id number] 04:55:00 Test Item Value Reference Range Comments PARTIAL THROMBOPLASTIN TIME (BEAKER) (test 27.1 seconds 22.5-36.0 qout=668) RAD, CHEST, 1 VIEW, NON [id number] 04:52:00Reason for exam:->s/p TEVAR with linesShould this [...] MDReport Verified Date/Time: 07/29/2017 04:52:56 Reading Location: [place] [address]Y CT Body Reading Room CBC (HEMOGRAM ONLY)2017-07-29 04:30:00 Test Item Value Reference Range Comments WHITE BLOOD CELL COUNT (BEAKER) (test vkhg=701) 5.3 K/ L 3.5-10.5 RED BLOOD CELL COUNT (BEAKER) (test soyp=294) 3.49 M/ L 3.93-5.22 HEMOGLOBIN (BEAKER) (test belo=002) 10.1 GM/DL 11.2-15.7 HEMATOCRIT (BEAKER) (test cgbd=510) 34.1 % 34.1-44.9 MEAN CORPUSCULAR VOLUME (BEAKER) (test wklv=398) 97.7 fL 79.4-94.8 MEAN CORPUSCULAR HEMOGLOBIN (BEAKER) (test 28.9 pg 25.6-32.2 wezm=315) MEAN CORPUSCULAR HEMOGLOBIN CONC (BEAKER) (test 29.6 GM/DL 32.2-35.5 cwjm=661) RED CELL DISTRIBUTION WIDTH (BEAKER) (test 15.9 % 11.7-14.4 efah=095) PLATELET COUNT (BEAKER) (test zbmp=033) 219 K/CU MM 150-450 MEAN PLATELET VOLUME (BEAKER) (test msdc=623) 12.2 fL 9.4-12.3 NUCLEATED RED BLOOD CELLS (BEAKER) (test 0 /100 WBC 0-0 ugli=775) POCT-GLUCOSE [id number] 00:10:00 Test Item Value Reference Range Comments POC-GLUCOSE METER (BEAKER) 170 mg/dL 70-110 TESTED AT [address] (test sdol=4515) [place] [address] POCT-GLUCOSE [id number] 18:09:00 Test Item Value Reference Range Comments POC-GLUCOSE METER (BEAKER) 205 mg/dL 70-110 TESTED AT [address] (test dycc=1883) [place] [address] [id number] 16:53:00 Test Item Value Reference Range Comments POTASSIUM (BEAKER) (test uqxh=486) 4.1 meq/L 3.5-5.1 PRN - repeat potassium levels every 1 hour until glucose level is less than 450 mg/[id number] 16:53:00 Test Item Value Reference Range Comments MAGNESIUM (BEAKER) (test bbno=681) 2.2 mg/dL 1.6-2.6 PRN - repeat potassium levels every 1 hour until glucose level is less than 450 mg/dLPOCT-GLUCOSE [id number] 15:17:00 Test Item Value Reference Range Comments POC-GLUCOSE METER (BEAKER) 186 mg/dL 70-110 TESTED AT [address] (test dmxf=6909) [place] [address] RAD, CHEST, 1 VIEW, NON [id number] 11:09:00Reason for exam:->s/p central line placementShould this [...] Verified Date/ Time: 07/28/2017 11:09:19 Reading Location: [facility] B1 C013X Ortho Consult Reading Room BLOOD [id number] 09:48:00 Test Item Value Reference Range Comments CULTURE (BEAKER) From Aerobic And Anaerobic (test efrw=6296) Bottles Same organism has been isolated from cultures(s) of the same body site and collection date. Repeat identification and susceptibility testing performed only after consultation with the clinical microbiology laboratory.Refer to previous culture ofCoagulase negative Staphylococcus GRAM STAIN RESULT From aerobic and (BEAKER) (test anaerobic bottles: mvcp=8992) gram positive cocci in clusters POCT-GLUCOSE [id number] 06:26:00 Test Item Value Reference Range Comments POC-GLUCOSE METER (BEAKER) 188 mg/dL 70-110 TESTED AT [address] (test ceky=7510) [facility] [address] RAD, CHEST, 1 VIEW, NON [id number] 06:02:00Reason for exam:->s/p TEVAR with linesShould this [...] MDReport Verified Date/Time: 07/28/2017 06:02:43 Reading Location: [facility] B1 C013Y CT Body Reading Room BLOOD GAS, [id number] 05: 33:00 Test Item Value Reference Range Comments PH ARTERIAL (BEAKER) (test sjen=381) 7.37 7.35-7.45 PCO2 ARTERIAL (BEAKER) (test obky=122) 51 mmHg 35-45 PO2 ARTERIAL (BEAKER) (test zkyw=129) 76 mmHg 80-90 O2 SATURATION ARTERIAL (BEAKER) (test zhjj=529) 95.0 % 96.0-97.0 HCO3 ARTERIAL (BEAKER) (test ebgh=282) 29 mmol/L 21-29 BASE EXCESS ARTERIAL (BEAKER) (test jvhq=333) 3.0 mmol/L -2.0-3.0 PATIENT TEMPERATURE (BEAKER) (test itge=1527) 36.5 C FIO2 (BEAKER) (test odkr=5848) 40.0 % Daily ABG with morning labs while patient is intubated.[id number] 05: 15:00 Test Item Value Reference Range Comments PHOSPHORUS (BEAKER) (test tlbq=884) 4.1 mg/dL 2.3-4.7 [id number] 05:15:00 Test Item Value Reference Range Comments MAGNESIUM (BEAKER) (test iiog=810) 2.2 mg/dL 1.6-2.6 BASIC METABOLIC [id number] 05:15:00 Test Item Value Reference Range Comments SODIUM (BEAKER) (test 148 meq/L 136-145 ttlj=722) POTASSIUM (BEAKER) (test 3.7 meq/L 3.5-5.1 ghux=665) CHLORIDE (BEAKER) (test 112 meq/L 98-107 adss=176) CO2 (BEAKER) (test 27 meq/L 22-29 qwqz=793) BLOOD UREA NITROGEN 49 mg/dL 7-21 (BEAKER) (test ajqn=786) CREATININE (BEAKER) (test 1.18 mg/dL 0.57-1.25 gdpa=424) GLUCOSE RANDOM (BEAKER) 154 mg/dL 70-105 (test twog=522) CALCIUM (BEAKER) (test 9.5 mg/dL 8.4-10.2 rccf=930) EGFR (BEAKER) (test 46 mL/min/1.73 sq m ESTIMATED GFR IS NOT pfog=7319) ACCURATE CREATININE CLEARANCE IN PREDICTING GLOMERULAR FILTRATION RATE. ESTIMATED GFR IS NOT APPLICABLE FOR DIALYSIS PATIENTS. VANCOMYCIN LEVEL, [id number] 05:14:00 Test Item Value Reference Range Comments VANCOMYCIN RANDOM (BEAKER) (test rkwq=820) 25.6 ug/mL Reference Range: No NormalsPROTHROMBIN [id number] 05:05:00 Test Item Value Reference Range Comments PROTIME (BEAKER) (test ygsk=174) 14.1 seconds 11.7-14.7 INR (BEAKER) (test agra=019) 1.1 <=5.9 RECOMMENDED COUMADIN/WARFARIN INR THERAPY RANGESSTANDARD DOSE: 2.0 - 3.0 Includes: PROPHYLAXIS forvenous thrombosis, systemic embolization; TREATMENT for venous thrombosis and/or pulmonary embolus.HIGH RISK: Target INR is 2.5-3.5 for patients with mechanical heart valves.[id number] 05:05:00 Test Item Value Reference Range Comments PARTIAL THROMBOPLASTIN TIME (BEAKER) (test 25.8 seconds 22.5-36.0 qyor=263) CBC (HEMOGRAM ONLY)2017-07-28 05:00:00 Test Item Value Reference Range Comments WHITE BLOOD CELL COUNT (BEAKER) (test zyur=450) 5.1 K/ L 3.5-10.5 RED BLOOD CELL COUNT (BEAKER) (test rjrd=234) 3.43 M/ L 3.93-5.22 HEMOGLOBIN (BEAKER) (test gvof=215) 10.0 GM/DL 11.2-15.7 HEMATOCRIT (BEAKER) (test rcxx=929) 33.5 % 34.1-44.9 MEAN CORPUSCULAR VOLUME (BEAKER) (test wzas=666) 97.7 fL 79.4-94.8 MEAN CORPUSCULAR HEMOGLOBIN (BEAKER) (test 29.2 pg 25.6-32.2 wodc=340) MEAN CORPUSCULAR HEMOGLOBIN CONC (BEAKER) (test 29.9 GM/DL 32.2-35.5 fpff=061) RED CELL DISTRIBUTION WIDTH (BEAKER) (test 15.9 % 11.7-14.4 btzy=728) PLATELET COUNT (BEAKER) (test sskx=444) 227 K/CU MM 150-450 MEAN PLATELET VOLUME (BEAKER) (test gpog=060) 12.6 fL 9.4-12.3 NUCLEATED RED BLOOD CELLS (BEAKER) (test 0 /100 WBC 0-0 uwfd=595) POCT-GLUCOSE [id number] 00:29:00 Test Item Value Reference Range Comments POC-GLUCOSE METER (BEAKER) 206 mg/dL 70-110 TESTED AT [address] (test alba=6035) [place] [id number] BLOOD GAS, [id number] 19:45:00 Test Item Value Reference Range Comments PH ARTERIAL (BEAKER) (test fdgk=534) 7.41 7.35-7.45 PCO2 ARTERIAL (BEAKER) (test malw=313) 44 mmHg 35-45 PO2 ARTERIAL (BEAKER) (test tgqm=608) 81 mmHg 80-90 O2 SATURATION ARTERIAL (BEAKER) (test ciwk=052) 96.0 % 96.0-97.0 HCO3 ARTERIAL (BEAKER) (test ejzd=941) 27 mmol/L 21-29 BASE EXCESS ARTERIAL (BEAKER) (test sqhk=535) 2.0 mmol/L -2.0-3.0 PATIENT TEMPERATURE (BEAKER) (test kfhl=6095) 37.0 C FIO2 (BEAKER) (test eczh=4671) 100.0 % POCT-GLUCOSE [id number] 17:59:00 Test Item Value Reference Range Comments POC-GLUCOSE METER (BEAKER) 198 mg/dL 70-110 TESTED AT [address] (test wzoi=9373) [place] [address] POCT-GLUCOSE [id number] 12:02:00 Test Item Value Reference Range Comments POC-GLUCOSE METER (BEAKER) 239 mg/dL 70-110 TESTED AT [address] (test xwll=3866) [place] [id number] BLOOD GAS, [id number] 11:08:00 Test Item Value Reference Range Comments PH ARTERIAL (BEAKER) (test amio=967) 7.44 7.35-7.45 PCO2 ARTERIAL (BEAKER) (test hzbw=663) 42 mmHg 35-45 PO2 ARTERIAL (BEAKER) (test egmm=769) 111 mmHg 80-90 O2 SATURATION ARTERIAL (BEAKER) (test nvgy=293) 98.3 % 96.0-97.0 HCO3 ARTERIAL (BEAKER) (test epea=271) 28 mmol/L 21-29 BASE EXCESS ARTERIAL (BEAKER) (test otvm=377) 3.6 mmol/L -2.0-3.0 PATIENT TEMPERATURE (BEAKER) (test jtzl=4610) 36.5 C FIO2 (BEAKER) (test qofm=7130) 40.0 % RAD, CHEST, 1 VIEW, NON [id number] 06:50:00Reason for exam:->s/p TEVAR with linesShould this [...] MDReport Verified Date/Time: 07/27/2017 06:50:41 Reading Location: [facility] C013Y CT Body Reading Room POCT-GLUCOSE [id number] 06:24:00 Test Item Value Reference Range Comments POC-GLUCOSE METER (BEAKER) 335 mg/dL 70-[address] [facility] [address] [facility] (test tzxt=2126) [facility] [address] [id number] 06:13:00 Test Item Value Reference Range Comments PHOSPHORUS (BEAKER) (test gexj=129) 4.7 mg/dL 2.3-4.7 [id number] 06:13:00 Test Item Value Reference Range Comments MAGNESIUM (BEAKER) (test ynjp=570) 2.1 mg/dL 1.6-2.6 BASIC METABOLIC [id number] 06:13:00 Test Item Value Reference Range Comments SODIUM (BEAKER) (test 146 meq/L 136-145 xltz=969) POTASSIUM (BEAKER) (test 4.2 meq/L 3.5-5.1 bszs=905) CHLORIDE (BEAKER) (test 109 meq/L 98-107 wkut=827) CO2 (BEAKER) (test 26 meq/L 22-29 qkdt=635) BLOOD UREA NITROGEN 47 mg/dL 7-21 (BEAKER) (test pyfv=344) CREATININE (BEAKER) (test 1.39 mg/dL 0.57-1.25 poef=040) GLUCOSE RANDOM (BEAKER) 340 mg/dL 70-105 (test ylyn=423) CALCIUM (BEAKER) (test 9.6 mg/dL 8.4-10.2 btdq=910) EGFR (BEAKER) (test 38 mL/min/1.73 sq m ESTIMATED GFR IS NOT jpfw=9165) ACCURATE CREATININE CLEARANCE IN PREDICTING GLOMERULAR FILTRATION RATE. ESTIMATED GFR IS NOT APPLICABLE FOR DIALYSIS PATIENTS. VANCOMYCIN LEVEL, [id number] 05:52:00 Test Item Value Reference Range Comments VANCOMYCIN RANDOM (BEAKER) (test muee=945) 22.2 ug/mL Reference Range: No [id number] 05:39:00 Test Item Value Reference Range Comments PARTIAL THROMBOPLASTIN TIME (BEAKER) (test < seconds 22.5-36.0 dbvt=790) PROTHROMBIN TIME/[id number] 05:36:00 Test Item Value Reference Range Comments PROTIME (BEAKER) (test flbs=915) 13.5 seconds 11.7-14.7 INR (BEAKER) (test kann=604) 1.0 <=5.9 RECOMMENDED COUMADIN/WARFARIN INR THERAPY RANGESSTANDARD DOSE: 2.0 - 3.0 Includes: PROPHYLAXIS forvenous thrombosis, systemic embolization; TREATMENT for venous thrombosis and/or pulmonary embolus.HIGH RISK: Target INR is 2.5-3.5 for patients with mechanical heart valves.CBC (HEMOGRAM ONLY)2017-07-27 05:35:00 Test Item Value Reference Range Comments WHITE BLOOD CELL COUNT (BEAKER) (test olcz=244) 5.6 K/ L 3.5-10.5 RED BLOOD CELL COUNT (BEAKER) (test thuk=360) 3.28 M/ L 3.93-5.22 HEMOGLOBIN (BEAKER) (test mvbu=009) 9.5 GM/DL 11.2-15.7 HEMATOCRIT (BEAKER) (test wadj=970) 31.8 % 34.1-44.9 MEAN CORPUSCULAR VOLUME (BEAKER) (test pvxf=256) 97.0 fL 79.4-94.8 MEAN CORPUSCULAR HEMOGLOBIN (BEAKER) (test 29.0 pg 25.6-32.2 jmuy=128) MEAN CORPUSCULAR HEMOGLOBIN CONC (BEAKER) (test 29.9 GM/DL 32.2-35.5 ciqb=868) RED CELL DISTRIBUTION WIDTH (BEAKER) (test 15.8 % 11.7-14.4 xzed=423) PLATELET COUNT (BEAKER) (test hoxa=622) 236 K/CU MM 150-450 MEAN PLATELET VOLUME (BEAKER) (test jwrt=768) 12.7 fL 9.4-12.3 NUCLEATED RED BLOOD CELLS (BEAKER) (test 0 /100 WBC 0-0 euab=690) BLOOD GAS, [id number] 05:28:00 Test Item Value Reference Range Comments PH ARTERIAL (BEAKER) (test fgpe=580) 7.33 7.35-7.45 PCO2 ARTERIAL (BEAKER) (test whrj=558) 56 mmHg 35-45 PO2 ARTERIAL (BEAKER) (test msmw=466) 70 mmHg 80-90 O2 SATURATION ARTERIAL (BEAKER) (test emhl=987) 92.5 % 96.0-97.0 HCO3 ARTERIAL (BEAKER) (test mwwd=407) 29 mmol/L 21-29 BASE EXCESS ARTERIAL (BEAKER) (test yckp=662) 1.8 mmol/L -2.0-3.0 PATIENT TEMPERATURE (BEAKER) (test ggup=8456) 37.0 C FIO2 (BEAKER) (test okfs=2435) 40.0 % Daily ABG with morning labs while patient is intubated.POCT-GLUCOSE [id number] 00:40:00 Test Item Value Reference Range Comments POC-GLUCOSE METER (BEAKER) 388 mg/dL 70-110 TESTED AT [address] (test lvme=5217) [place] [id number] VANCOMYCIN LEVEL, [id number] 18:23:00 Test Item Value Reference Range Comments VANCOMYCIN TROUGH (BEAKER) (test ozap=772) 32.4 ug/mL 10.0-20.0 30 minutes prior to 4th dose.POCT-GLUCOSE [id number] 18:11:00 Test Item Value Reference Range Comments POC-GLUCOSE METER (BEAKER) 340 mg/dL 70-110 Verify with Lab draw/TESTED AT (test hvsg=4995) [facility] [address] [facility] [address] URINE [id number] 12:22:00 Test Item Value Reference Range Comments CULTURE (BEAKER) (test uaoy=8776) No growth POCT-GLUCOSE [id number] 12:00:00 Test Item Value Reference Range Comments POC-GLUCOSE METER (BEAKER) 299 mg/dL 70-110 TESTED AT [address] (test sdtp=0886) [facility] [address] BRONCHIAL CULTURE + GRAM [id number] 10:03:00 Test Item Value Reference Range Comments CULTURE (BEAKER) (test 1+ Normal respiratory ambreen ippk=7015) present GRAM STAIN RESULT (BEAKER) 1+ WBCs (test cxyo=2264) GRAM STAIN RESULT (BEAKER) No organisms seen (test qyqn=04085) SPUTUM CULTURE + GRAM [id number] 10:02:00 Test Item Value Reference Range Comments CULTURE (BEAKER) (test 1+ Normal respiratory ambreen afsr=4614) present GRAM STAIN RESULT (BEAKER) 1+ WBCs (test oezu=1866) GRAM STAIN RESULT (BEAKER) 0-5 epithelial cells (test osbr=25575) GRAM STAIN RESULT (BEAKER) No organisms seen (test zqyh=79270) POCT-GLUCOSE [id number] 06:12:00 Test Item Value Reference Range Comments POC-GLUCOSE METER (BEAKER) 279 mg/dL 70-110 TESTED AT [address] (test hngu=1834) [place] [id number] BLOOD GAS, [id number] 05:47:00 Test Item Value Reference Range Comments PH ARTERIAL (BEAKER) (test glev=399) 7.45 7.35-7.45 PCO2 ARTERIAL (BEAKER) (test tspc=328) 42 mmHg 35-45 PO2 ARTERIAL (BEAKER) (test qacn=722) 75 mmHg 80-90 O2 SATURATION ARTERIAL (BEAKER) (test pkyq=693) 95.7 % 96.0-97.0 HCO3 ARTERIAL (BEAKER) (test bgyc=875) 29 mmol/L 21-29 BASE EXCESS ARTERIAL (BEAKER) (test cequ=146) 4.3 mmol/L -2.0-3.0 PATIENT TEMPERATURE (BEAKER) (test riva=8497) 37.0 C FIO2 (BEAKER) (test zddf=1399) 100.0 % Daily ABG with morning labs while patient is intubated.[id number] 05: 38:00 Test Item Value Reference Range Comments PHOSPHORUS (BEAKER) (test ksmn=790) 3.1 mg/dL 2.3-4.7 [id number] 05:38:00 Test Item Value Reference Range Comments MAGNESIUM (BEAKER) (test gwrw=238) 2.0 mg/dL 1.6-2.6 BASIC METABOLIC [id number] 05:38:00 Test Item Value Reference Range Comments SODIUM (BEAKER) (test 144 meq/L 136-145 ujhy=871) POTASSIUM (BEAKER) (test 3.9 meq/L 3.5-5.1 uyfg=176) CHLORIDE (BEAKER) (test 109 meq/L 98-107 rbmd=389) CO2 (BEAKER) (test 25 meq/L 22-29 tsiz=932) BLOOD UREA NITROGEN 47 mg/dL 7-21 (BEAKER) (test tpmi=459) CREATININE (BEAKER) (test 1.46 mg/dL 0.57-1.25 hmpg=420) GLUCOSE RANDOM (BEAKER) 332 mg/dL 70-105 (test sjva=409) CALCIUM (BEAKER) (test 8.9 mg/dL 8.4-10.2 ttrk=253) EGFR (BEAKER) (test 36 mL/min/1.73 sq m ESTIMATED GFR IS NOT ezba=1206) ACCURATE CREATININE CLEARANCE IN PREDICTING GLOMERULAR FILTRATION RATE. ESTIMATED GFR IS NOT APPLICABLE FOR DIALYSIS PATIENTS. POCT-GLUCOSE [id number] 05:24:00 Test Item Value Reference Range Comments POC-GLUCOSE METER (BEAKER) 283 mg/dL 70-[address] [facility] [address] [facility] (test chjt=8764) [facility] [address] PROTHROMBIN TIME/[id number] 05:05:00 Test Item Value Reference Range Comments PROTIME (BEAKER) (test wpfj=685) 15.2 seconds 11.7-14.7 INR (BEAKER) (test lrpa=501) 1.2 <=5.9 RECOMMENDED COUMADIN/WARFARIN INR THERAPY RANGESSTANDARD DOSE: 2.0 - 3.0 Includes: PROPHYLAXIS forvenous thrombosis, systemic embolization; TREATMENT for venous thrombosis and/or pulmonary embolus.HIGH RISK: Target INR is 2.5-3.5 for patients with mechanical heart valves.[id number] 05:05:00 Test Item Value Reference Range Comments PARTIAL THROMBOPLASTIN TIME (BEAKER) (test 28.2 seconds 22.5-36.0 vlxj=291) CBC (HEMOGRAM ONLY)2017-07-26 04:53:00 Test Item Value Reference Range Comments WHITE BLOOD CELL COUNT (BEAKER) (test wnxr=055) 5.0 K/ L 3.5-10.5 RED BLOOD CELL COUNT (BEAKER) (test qgpz=005) 3.10 M/ L 3.93-5.22 HEMOGLOBIN (BEAKER) (test bgas=636) 8.9 GM/DL 11.2-15.7 HEMATOCRIT (BEAKER) (test wrfu=991) 29.9 % 34.1-44.9 MEAN CORPUSCULAR VOLUME (BEAKER) (test pwev=303) 96.5 fL 79.4-94.8 MEAN CORPUSCULAR HEMOGLOBIN (BEAKER) (test 28.7 pg 25.6-32.2 bolm=505) MEAN CORPUSCULAR HEMOGLOBIN CONC (BEAKER) (test 29.8 GM/DL 32.2-35.5 rlci=013) RED CELL DISTRIBUTION WIDTH (BEAKER) (test 16.2 % 11.7-14.4 zbuq=697) PLATELET COUNT (BEAKER) (test mgue=112) 216 K/CU MM 150-450 MEAN PLATELET VOLUME (BEAKER) (test ucns=401) 12.6 fL 9.4-12.3 NUCLEATED RED BLOOD CELLS (BEAKER) (test 0 /100 WBC 0-0 lnty=064) RAD, CHEST, 1 VIEW, NON [id number] 04:44:00Reason for exam:->s/p TEVAR with linesShould this [...] MDReport Verified Date/Time: 07/26/2017 04:44:03 Reading Location: [facility] B1 C013Y CT Body Reading Room POCT-GLUCOSE [id number] 04:06:00 Test Item Value Reference Range Comments POC-GLUCOSE METER (BEAKER) 328 mg/dL 70-110 Notified KIMBERLY SAINZ/TESTED AT [facility] (test zrgl=9401) [address] [place] [id number] POCT-GLUCOSE [id number] 03:21:00 Test Item Value Reference Range Comments POC-GLUCOSE METER (BEAKER) 298 mg/dL 70-110 TESTED AT [address] (test bebw=4255) [facility] [address] POCT-GLUCOSE [id number] 03:12:00 Test Item Value Reference Range Comments POC-GLUCOSE METER (BEAKER) 311 mg/dL 70-110 TESTED AT [address] (test hjpx=6411) [facility] [address] [id number] 00:53:00 Test Item Value Reference Range Comments POTASSIUM (BEAKER) (test whgy=225) 3.7 meq/L 3.5-5.1 [id number] 00:53:00 Test Item Value Reference Range Comments GLUCOSE RANDOM (BEAKER) (test uxae=553) 336 mg/dL 70-105 POCT-GLUCOSE [id number] 00:06:00 Test Item Value Reference Range Comments POC-GLUCOSE METER (BEAKER) 348 mg/dL 70-110 Notified KIMBERLY SAINZ/TESTED AT [facility] (test bxkg=5220) [address] [place] [address] POCT-GLUCOSE [id number] 18:51:00 Test Item Value Reference Range Comments POC-GLUCOSE METER (BEAKER) 313 mg/dL 70-110 Notified KIMBERLY SAINZ/TESTED AT [facility] (test hfkx=0471) [address] [place] [address] [id number] 16:55:00 Test Item Value Reference Range Comments MAGNESIUM (BEAKER) (test vthk=134) 2.2 mg/dL 1.6-2.6 BASIC METABOLIC [id number] 16:55:00 Test Item Value Reference Range Comments SODIUM (BEAKER) (test 145 meq/L 136-145 frze=180) POTASSIUM (BEAKER) (test 3.8 meq/L 3.5-5.1 mfkc=962) CHLORIDE (BEAKER) (test 110 meq/L 98-107 irlf=954) CO2 (BEAKER) (test 27 meq/L 22-29 xrsd=810) BLOOD UREA NITROGEN 42 mg/dL 7-21 (BEAKER) (test yjkn=815) CREATININE (BEAKER) (test 1.38 mg/dL 0.57-1.25 kwbx=570) GLUCOSE RANDOM (BEAKER) 270 mg/dL 70-105 (test tlse=370) CALCIUM (BEAKER) (test 8.7 mg/dL 8.4-10.2 zxrt=145) EGFR (BEAKER) (test 39 mL/min/1.73 sq m ESTIMATED GFR IS NOT jbmm=5676) ACCURATE CREATININE CLEARANCE IN PREDICTING GLOMERULAR FILTRATION RATE. ESTIMATED GFR IS NOT APPLICABLE FOR DIALYSIS PATIENTS. POCT-GLUCOSE [id number] 13:11:00 Test Item Value Reference Range Comments POC-GLUCOSE METER (BEAKER) 284 mg/dL 70-110 TESTED AT [address] (test gbfc=3655) [place] [address] POCT-GLUCOSE [id number] 06:54:00 Test Item Value Reference Range Comments POC-GLUCOSE METER (BEAKER) 275 mg/dL 70-110 TESTED AT [address] (test myxg=7995) [place] [id number] BLOOD GAS, [id number] 05:07:00 Test Item Value Reference Range Comments PH ARTERIAL (BEAKER) (test ynjj=398) 7.47 7.35-7.45 PCO2 ARTERIAL (BEAKER) (test kmaf=855) 42 mmHg 35-45 PO2 ARTERIAL (BEAKER) (test algh=090) 87 mmHg 80-90 O2 SATURATION ARTERIAL (BEAKER) (test qdgh=853) 97.1 % 96.0-97.0 HCO3 ARTERIAL (BEAKER) (test xgvz=360) 29 mmol/L 21-29 BASE EXCESS ARTERIAL (BEAKER) (test phbp=364) 5.2 mmol/L -2.0-3.0 PATIENT TEMPERATURE (BEAKER) (test imyo=7701) 37.0 C FIO2 (BEAKER) (test gfvl=5636) 40.0 % Daily ABG with morning labs while patient is intubated.RAD, CHEST, 1 VIEW, NON [id number] 04:36:00Reason for exam:->s/p TEVAR with linesShould this [...] MDReport Verified Date/Time: 07/25/2017 04:36:28 Reading Location: [place] [id number] Body Reading Room [id number] 04:09:00 Test Item Value Reference Range Comments PHOSPHORUS (BEAKER) (test uycw=963) 2.8 mg/dL 2.3-4.7 [id number] 04:09:00 Test Item Value Reference Range Comments MAGNESIUM (BEAKER) (test aeqk=551) 2.1 mg/dL 1.6-2.6 BASIC METABOLIC [id number] 04:09:00 Test Item Value Reference Range Comments SODIUM (BEAKER) (test 148 meq/L 136-145 qnow=233) POTASSIUM (BEAKER) (test 3.7 meq/L 3.5-5.1 mzyv=022) CHLORIDE (BEAKER) (test 110 meq/L 98-107 ilbb=706) CO2 (BEAKER) (test 30 meq/L 22-29 ykho=467) BLOOD UREA NITROGEN 44 mg/dL 7-21 (BEAKER) (test plet=173) CREATININE (BEAKER) (test 1.56 mg/dL 0.57-1.25 ypjg=015) GLUCOSE RANDOM (BEAKER) 223 mg/dL 70-105 (test rgyo=215) CALCIUM (BEAKER) (test 8.6 mg/dL 8.4-10.2 llpx=601) EGFR (BEAKER) (test 34 mL/min/1.73 sq m ESTIMATED GFR IS NOT spjt=9067) ACCURATE CREATININE CLEARANCE IN PREDICTING GLOMERULAR FILTRATION RATE. ESTIMATED GFR IS NOT APPLICABLE FOR DIALYSIS PATIENTS. [id number] 03:52:00 Test Item Value Reference Range Comments PARTIAL THROMBOPLASTIN TIME (BEAKER) (test 30.5 seconds 22.5-36.0 xefe=776) PROTHROMBIN [id number] 03:51:00 Test Item Value Reference Range Comments PROTIME (BEAKER) (test uaev=765) 14.8 seconds 11.7-14.7 INR (BEAKER) (test tsno=019) 1.2 <=5.9 RECOMMENDED COUMADIN/WARFARIN INR THERAPY RANGESSTANDARD DOSE: 2.0 - 3.0 Includes: PROPHYLAXIS forvenous thrombosis, systemic embolization; TREATMENT for venous thrombosis and/or pulmonary embolus.HIGH RISK: Target INR is 2.5-3.5 for patients with mechanical heart valves.CBC (HEMOGRAM ONLY)2017-07-25 03:34:00 Test Item Value Reference Range Comments WHITE BLOOD CELL COUNT (BEAKER) (test zcej=324) 6.9 K/ L 3.5-10.5 RED BLOOD CELL COUNT (BEAKER) (test pdkk=250) 2.96 M/ L 3.93-5.22 HEMOGLOBIN (BEAKER) (test mzog=405) 8.7 GM/DL 11.2-15.7 HEMATOCRIT (BEAKER) (test ygry=407) 28.5 % 34.1-44.9 MEAN CORPUSCULAR VOLUME (BEAKER) (test plua=113) 96.3 fL 79.4-94.8 MEAN CORPUSCULAR HEMOGLOBIN (BEAKER) (test 29.4 pg 25.6-32.2 ortj=361) MEAN CORPUSCULAR HEMOGLOBIN CONC (BEAKER) (test 30.5 GM/DL 32.2-35.5 mtjr=808) RED CELL DISTRIBUTION WIDTH (BEAKER) (test 16.2 % 11.7-14.4 jihf=167) PLATELET COUNT (BEAKER) (test obct=851) 214 K/CU MM 150-450 MEAN PLATELET VOLUME (BEAKER) (test lrkv=881) 12.5 fL 9.4-12.3 NUCLEATED RED BLOOD CELLS (BEAKER) (test 0 /100 WBC 0-0 snuh=772) POCT-GLUCOSE [id number] 00:12:00 Test Item Value Reference Range Comments POC-GLUCOSE METER (BEAKER) 214 mg/dL 70-110 TESTED AT [address] (test auij=0447) [facility] [address] POCT-GLUCOSE [id number] 23:28:00 Test Item Value Reference Range Comments POC-GLUCOSE METER (BEAKER) 192 mg/dL 70-110 TESTED AT [address] (test dreg=2047) [facility] [address] POCT-GLUCOSE [id number] 14:19:00 Test Item Value Reference Range Comments POC-GLUCOSE METER (BEAKER) 236 mg/dL 70-110 TESTED AT [address] (test ggrh=6964) [facility] [address] POCT-GLUCOSE [id number] 11:17:00 Test Item Value Reference Range Comments POC-GLUCOSE METER (BEAKER) 110 mg/dL 70-110 TESTED AT [address] (test hzen=0336) [facility] [address] POCT-GLUCOSE [id number] 05:42:00 Test Item Value Reference Range Comments POC-GLUCOSE METER (BEAKER) 183 mg/dL 70-110 TESTED AT [address] (test kwje=4387) [facility] [address] RAD, CHEST, 1 VIEW, NON [id number] 05:09:00Reason for exam:->s/p TEVAR with linesShould this [...] MDReport Verified Date/Time: 07/24/2017 05:09:03 Reading Location: [address] Body Reading Room [id number] 03:52:00 Test Item Value Reference Range Comments PARTIAL THROMBOPLASTIN TIME (BEAKER) (test 25.8 seconds 22.5-36.0 mnfu=156) PROTHROMBIN [id number] 03:51:00 Test Item Value Reference Range Comments PROTIME (BEAKER) (test ppoo=687) 13.6 seconds 11.7-14.7 INR (BEAKER) (test dqkj=721) 1.1 <=5.9 RECOMMENDED COUMADIN/WARFARIN INR THERAPY RANGESSTANDARD DOSE: 2.0 - 3.0 Includes: PROPHYLAXIS forvenous thrombosis, systemic embolization; TREATMENT for venous thrombosis and/or pulmonary embolus.HIGH RISK: Target INR is 2.5-3.5 for patients with mechanical heart valves.[id number] 03:42:00 Test Item Value Reference Range Comments PHOSPHORUS (BEAKER) (test ljca=173) 3.1 mg/dL 2.3-4.7 [id number] 03:42:00 Test Item Value Reference Range Comments MAGNESIUM (BEAKER) (test himh=743) 1.8 mg/dL 1.6-2.6 BASIC METABOLIC [id number] 03:42:00 Test Item Value Reference Range Comments SODIUM (BEAKER) (test 150 meq/L 136-145 vhxi=942) POTASSIUM (BEAKER) (test 3.4 meq/L 3.5-5.1 xvkc=598) CHLORIDE (BEAKER) (test 112 meq/L 98-107 nleu=175) CO2 (BEAKER) (test 30 meq/L 22-29 jigr=224) BLOOD UREA NITROGEN 41 mg/dL 7-21 (BEAKER) (test nwto=374) CREATININE (BEAKER) (test 1.42 mg/dL 0.57-1.25 yokr=352) GLUCOSE RANDOM (BEAKER) 222 mg/dL 70-105 (test zxrj=539) CALCIUM (BEAKER) (test 8.7 mg/dL 8.4-10.2 extl=598) EGFR (BEAKER) (test 37 mL/min/1.73 sq m ESTIMATED GFR IS NOT mxbh=0403) ACCURATE CREATININE CLEARANCE IN PREDICTING GLOMERULAR FILTRATION RATE. ESTIMATED GFR IS NOT APPLICABLE FOR DIALYSIS PATIENTS. CBC (HEMOGRAM ONLY)2017-07-24 03:24:00 Test Item Value Reference Range Comments WHITE BLOOD CELL COUNT (BEAKER) (test jgqu=999) 7.8 K/ L 3.5-10.5 RED BLOOD CELL COUNT (BEAKER) (test mgdi=153) 3.09 M/ L 3.93-5.22 HEMOGLOBIN (BEAKER) (test yrob=352) 9.0 GM/DL 11.2-15.7 HEMATOCRIT (BEAKER) (test jydm=183) 29.9 % 34.1-44.9 MEAN CORPUSCULAR VOLUME (BEAKER) (test qefc=370) 96.8 fL 79.4-94.8 MEAN CORPUSCULAR HEMOGLOBIN (BEAKER) (test 29.1 pg 25.6-32.2 lxao=324) MEAN CORPUSCULAR HEMOGLOBIN CONC (BEAKER) (test 30.1 GM/DL 32.2-35.5 sifd=232) RED CELL DISTRIBUTION WIDTH (BEAKER) (test 16.0 % 11.7-14.4 pfqh=168) PLATELET COUNT (BEAKER) (test kvfw=248) 230 K/CU MM 150-450 MEAN PLATELET VOLUME (BEAKER) (test etkp=572) 12.6 fL 9.4-12.3 NUCLEATED RED BLOOD CELLS (BEAKER) (test 0 /100 WBC 0-0 vfcv=988) BLOOD GAS, [id number] 03:22:00 Test Item Value Reference Range Comments PH ARTERIAL (BEAKER) (test plzw=299) 7.48 7.35-7.45 PCO2 ARTERIAL (BEAKER) (test hzqx=322) 45 mmHg 35-45 PO2 ARTERIAL (BEAKER) (test zpyr=569) 74 mmHg 80-90 O2 SATURATION ARTERIAL (BEAKER) (test veng=749) 95.7 % 96.0-97.0 HCO3 ARTERIAL (BEAKER) (test xoen=791) 33 mmol/L 21-29 BASE EXCESS ARTERIAL (BEAKER) (test eybb=914) 8.3 mmol/L -2.0-3.0 PATIENT TEMPERATURE (BEAKER) (test cnyj=8787) 37.0 C FIO2 (BEAKER) (test yaku=3979) 50.0 % Daily ABG with morning labs while patient is intubated.POCT-GLUCOSE [id number] 00:24:00 Test Item Value Reference Range Comments POC-GLUCOSE METER (BEAKER) 155 mg/dL 70-[address] [facility] [address] [facility] (test cutn=2455) [facility] [address] POCT-GLUCOSE [id number] 19:04:00 Test Item Value Reference Range Comments POC-GLUCOSE METER (BEAKER) 202 mg/dL 70-[address] [facility] [address] [facility] (test egvl=3604) [facility] [address] RAD, CHEST, 1 VIEW, NON [id number] 17:40:00Reason for exam:->check picc placement Should this [...] Simpson Verified Date/Time: 07/23/2017 17:40:46 [facility] [id number] 14:48:00 Test Item Value Reference Range Comments POTASSIUM (BEAKER) (test 3.9 meq/L 3.5-5.1 Specimen slightly hemolyzed pppb=701) PRN - repeat potassium levels every 1 hour until glucose level is less than 450 mg/dLRAD, CHEST, 1 VIEW, NON [id number] 05:17:00Reason for exam:->s/p TEVAR with linesShould this [...] Scruggs Verified Date/Time: 07/23/2017 05:17:05 Reading Location: [address] Transitional Reading Room BLOOD GAS, [id number] 03:59:00 Test Item Value Reference Range Comments PH ARTERIAL (BEAKER) (test zyxy=737) 7.40 7.35-7.45 PCO2 ARTERIAL (BEAKER) (test luvr=636) 46 mmHg 35-45 PO2 ARTERIAL (BEAKER) (test swcg=194) 83 mmHg 80-90 O2 SATURATION ARTERIAL (BEAKER) (test tzws=190) 96.0 % 96.0-97.0 HCO3 ARTERIAL (BEAKER) (test ciuz=655) 28 mmol/L 21-29 BASE EXCESS ARTERIAL (BEAKER) (test sobi=988) 2.5 mmol/L -2.0-3.0 PATIENT TEMPERATURE (BEAKER) (test nrdl=2795) 37.0 C FIO2 (BEAKER) (test ttpo=2966) 100.0 % Daily ABG with morning labs while patient is intubated.[id number] 03: 54:00 Test Item Value Reference Range Comments PHOSPHORUS (BEAKER) (test smmh=189) 3.9 mg/dL 2.3-4.7 [id number] 03:54:00 Test Item Value Reference Range Comments MAGNESIUM (BEAKER) (test orcf=042) 2.3 mg/dL 1.6-2.6 BASIC METABOLIC [id number] 03:54:00 Test Item Value Reference Range Comments SODIUM (BEAKER) (test 152 meq/L 136-145 wcee=015) POTASSIUM (BEAKER) (test 3.9 meq/L 3.5-5.1 ifwj=150) CHLORIDE (BEAKER) (test 114 meq/L 98-107 prlb=828) CO2 (BEAKER) (test 26 meq/L 22-29 myna=714) BLOOD UREA NITROGEN 42 mg/dL 7-21 (BEAKER) (test uhtm=437) CREATININE (BEAKER) (test 1.47 mg/dL 0.57-1.25 rnph=882) GLUCOSE RANDOM (BEAKER) 182 mg/dL 70-105 (test tknk=764) CALCIUM (BEAKER) (test 8.9 mg/dL 8.4-10.2 crgq=049) EGFR (BEAKER) (test 36 mL/min/1.73 sq m ESTIMATED GFR IS NOT mrux=8920) ACCURATE CREATININE CLEARANCE IN PREDICTING GLOMERULAR FILTRATION RATE. ESTIMATED GFR IS NOT APPLICABLE FOR DIALYSIS PATIENTS. PROTHROMBIN TIME/[id number] 03:45:00 Test Item Value Reference Range Comments PROTIME (BEAKER) (test utvl=487) 14.4 seconds 11.7-14.7 INR (BEAKER) (test opra=236) 1.1 <=5.9 RECOMMENDED COUMADIN/WARFARIN INR THERAPY RANGESSTANDARD DOSE: 2.0 - 3.0 Includes: PROPHYLAXIS forvenous thrombosis, systemic embolization; TREATMENT for venous thrombosis and/or pulmonary embolus.HIGH RISK: Target INR is 2.5-3.5 for patients with mechanical heart valves.[id number] 03:45:00 Test Item Value Reference Range Comments PARTIAL THROMBOPLASTIN TIME (BEAKER) (test 25.3 seconds 22.5-36.0 hdna=877) CBC (HEMOGRAM ONLY)2017-07-23 03:38:00 Test Item Value Reference Range Comments WHITE BLOOD CELL COUNT (BEAKER) (test cydi=097) 8.2 K/ L 3.5-10.5 RED BLOOD CELL COUNT (BEAKER) (test ygor=062) 3.13 M/ L 3.93-5.22 HEMOGLOBIN (BEAKER) (test dbav=955) 9.1 GM/DL 11.2-15.7 HEMATOCRIT (BEAKER) (test jonf=754) 30.8 % 34.1-44.9 MEAN CORPUSCULAR VOLUME (BEAKER) (test qzeo=329) 98.4 fL 79.4-94.8 MEAN CORPUSCULAR HEMOGLOBIN (BEAKER) (test 29.1 pg 25.6-32.2 qxfo=015) MEAN CORPUSCULAR HEMOGLOBIN CONC (BEAKER) (test 29.5 GM/DL 32.2-35.5 oirj=095) RED CELL DISTRIBUTION WIDTH (BEAKER) (test 16.2 % 11.7-14.4 pbfk=187) PLATELET COUNT (BEAKER) (test dfxh=238) 222 K/CU MM 150-450 MEAN PLATELET VOLUME (BEAKER) (test uaaa=971) 12.8 fL 9.4-12.3 NUCLEATED RED BLOOD CELLS (BEAKER) (test 0 /100 WBC 0-0 kjew=561) RAD, ABDOMEN/KUB, 1 VIEW [id number] 22:33:00Reason for exam:->New NG tube Should this [...] MDReport Verified Date/Time: 07/22/2017 22:33:01 Reading Location: [address] Transitional Reading Room POCT-GLUCOSE [id number] 12:25:00 Test Item Value Reference Range Comments POC-GLUCOSE METER (BEAKER) 155 mg/dL 70-110 TESTED AT [address] (test yzox=0611) [facility] [address] [id number] 06:41:00 Test Item Value Reference Range Comments PHOSPHORUS (BEAKER) (test tdze=827) 3.8 mg/dL 2.3-4.7 [id number] 06:41:00 Test Item Value Reference Range Comments MAGNESIUM (BEAKER) (test bwua=084) 2.2 mg/dL 1.6-2.6 BASIC METABOLIC [id number] 06:41:00 Test Item Value Reference Range Comments SODIUM (BEAKER) (test 154 meq/L 136-145 uzme=335) POTASSIUM (BEAKER) (test 3.6 meq/L 3.5-5.1 wdyv=658) CHLORIDE (BEAKER) (test 115 meq/L 98-107 oeoo=855) CO2 (BEAKER) (test 28 meq/L 22-29 nuas=760) BLOOD UREA NITROGEN 41 mg/dL 7-21 (BEAKER) (test karf=234) CREATININE (BEAKER) (test 1.41 mg/dL 0.57-1.25 rdkv=068) GLUCOSE RANDOM (BEAKER) 146 mg/dL 70-105 (test edsc=512) CALCIUM (BEAKER) (test 8.8 mg/dL 8.4-10.2 jejd=361) EGFR (BEAKER) (test 38 mL/min/1.73 sq m ESTIMATED GFR IS NOT ntlt=6640) ACCURATE CREATININE CLEARANCE IN PREDICTING GLOMERULAR FILTRATION RATE. ESTIMATED GFR IS NOT APPLICABLE FOR DIALYSIS PATIENTS. [id number] 06:32:00 Test Item Value Reference Range Comments PARTIAL THROMBOPLASTIN TIME (BEAKER) (test 28.1 seconds 22.5-36.0 jfbm=068) PROTHROMBIN TIME/[id number] 06:29:00 Test Item Value Reference Range Comments PROTIME (BEAKER) (test klob=847) 13.8 seconds 11.7-14.7 INR (BEAKER) (test fwyo=948) 1.1 <=5.9 RECOMMENDED COUMADIN/WARFARIN INR THERAPY RANGESSTANDARD DOSE: 2.0 - 3.0 Includes: PROPHYLAXIS forvenous thrombosis, systemic embolization; TREATMENT for venous thrombosis and/or pulmonary embolus.HIGH RISK: Target INR is 2.5-3.5 for patients with mechanical heart valves.CBC (HEMOGRAM ONLY)2017-07-22 06:09:00 Test Item Value Reference Range Comments WHITE BLOOD CELL COUNT (BEAKER) (test qhpk=148) 7.9 K/ L 3.5-10.5 RED BLOOD CELL COUNT (BEAKER) (test ymnn=209) 3.18 M/ L 3.93-5.22 HEMOGLOBIN (BEAKER) (test vbre=026) 9.2 GM/DL 11.2-15.7 HEMATOCRIT (BEAKER) (test payn=035) 31.2 % 34.1-44.9 MEAN CORPUSCULAR VOLUME (BEAKER) (test pbgo=912) 98.1 fL 79.4-94.8 MEAN CORPUSCULAR HEMOGLOBIN (BEAKER) (test 28.9 pg 25.6-32.2 oxnw=449) MEAN CORPUSCULAR HEMOGLOBIN CONC (BEAKER) (test 29.5 GM/DL 32.2-35.5 ejbd=903) RED CELL DISTRIBUTION WIDTH (BEAKER) (test 16.2 % 11.7-14.4 wgjh=786) PLATELET COUNT (BEAKER) (test dbpy=809) 212 K/CU MM 150-450 MEAN PLATELET VOLUME (BEAKER) (test fzyt=309) 12.7 fL 9.4-12.3 NUCLEATED RED BLOOD CELLS (BEAKER) (test 0 /100 WBC 0-0 yhjk=359) BLOOD GAS, [id number] 06:08:00 Test Item Value Reference Range Comments PH ARTERIAL (BEAKER) (test bibu=847) 7.42 7.35-7.45 PCO2 ARTERIAL (BEAKER) (test bnhc=406) 47 mmHg 35-45 PO2 ARTERIAL (BEAKER) (test idxn=269) 138 mmHg 80-90 O2 SATURATION ARTERIAL (BEAKER) (test cswi=848) 98.8 % 96.0-97.0 HCO3 ARTERIAL (BEAKER) (test xnsd=960) 30 mmol/L 21-29 BASE EXCESS ARTERIAL (BEAKER) (test cpgb=613) 4.6 mmol/L -2.0-3.0 PATIENT TEMPERATURE (BEAKER) (test wxkb=1877) 36.8 C FIO2 (BEAKER) (test jmbt=7748) 100.0 % Daily ABG with morning labs while patient is intubated.RAD, ABDOMEN/KUB, 1 VIEW [id number] 04:48:00Reason for exam:->NG tube placment Should this [...] Royal Verified Date/Time: 07/22/2017 04:48:05 Reading Location: [facility] [id number] Ortho Consult Reading Room RAD, CHEST, 1 VIEW, NON [id number] 04:47: 00Reason for exam:->s/p TEVAR with linesShould this be performed at the bedside?->YesFINAL REPORT CLINICAL INDICATION: Postop Comparison: 07/21/2017 The cardiomediastinal contours are stable. Central pulmonary vascular congestion and bilateral parenchymal opacities are unchanged. There is no pneumothorax. Support lines are stable. Signed: Sarmad StevensonVerified Date/Time: 07/22/2017 04:47:13 Reading Location: [address] Reading Room POCT-GLUCOSE [id number] 01:30:00 Test Item Value Reference Range Comments POC-GLUCOSE METER (BEAKER) 203 mg/dL 70-110 TESTED AT [address] (test iqdd=0515) [facility] [address] RAD, CHEST, 1 VIEW, NON [id number] 21:13:00Reason for exam:-> intubationShould this be performed [...] Sarmad Stevenson VerifiedDate/Time: 07/21/2017 21:13:02 Reading Location: [address] Reading Room RAD, CHEST, 1 VIEW, NON [id number] 20:08:00Reason for exam:->endotracheal tube malpositionShould this be [...] MDReport Verified Date/Time: 07/21/2017 20:08:49 Reading Location: [address] Reading Room [id number] 05:34:00 Test Item Value Reference Range Comments PHOSPHORUS (BEAKER) (test gygz=072) 3.3 mg/dL 2.3-4.7 [id number] 05:34:00 Test Item Value Reference Range Comments MAGNESIUM (BEAKER) (test taaq=226) 2.4 mg/dL 1.6-2.6 BASIC METABOLIC [id number] 05:34:00 Test Item Value Reference Range Comments SODIUM (BEAKER) (test 150 meq/L 136-145 kslm=964) POTASSIUM (BEAKER) (test 3.6 meq/L 3.5-5.1 qwmn=517) CHLORIDE (BEAKER) (test 113 meq/L 98-107 vdpt=776) CO2 (BEAKER) (test 28 meq/L 22-29 yhag=795) BLOOD UREA NITROGEN 37 mg/dL 7-21 (BEAKER) (test dris=034) CREATININE (BEAKER) (test 1.42 mg/dL 0.57-1.25 jbqa=846) GLUCOSE RANDOM (BEAKER) 204 mg/dL 70-105 (test lnyy=072) CALCIUM (BEAKER) (test 8.9 mg/dL 8.4-10.2 lmbv=775) EGFR (BEAKER) (test 37 mL/min/1.73 sq m ESTIMATED GFR IS NOT cibk=1046) ACCURATE CREATININE CLEARANCE IN PREDICTING GLOMERULAR FILTRATION RATE. ESTIMATED GFR IS NOT APPLICABLE FOR DIALYSIS PATIENTS. [id number] 05:08:00 Test Item Value Reference Range Comments PARTIAL THROMBOPLASTIN TIME (BEAKER) (test 25.0 seconds 22.5-36.0 wyui=555) PROTHROMBIN TIME/[id number] 05:07:00 Test Item Value Reference Range Comments PROTIME (BEAKER) (test xljv=534) 14.3 seconds 11.7-14.7 INR (BEAKER) (test zfqb=156) 1.1 <=5.9 RECOMMENDED COUMADIN/WARFARIN INR THERAPY RANGESSTANDARD DOSE: 2.0 - 3.0 Includes: PROPHYLAXIS forvenous thrombosis, systemic embolization; TREATMENT for venous thrombosis and/or pulmonary embolus.HIGH RISK: Target INR is 2.5-3.5 for patients with mechanical heart valves.BLOOD GAS, [id number] 05:06:00 Test Item Value Reference Range Comments PH ARTERIAL (BEAKER) (test tblc=737) 7.46 7.35-7.45 PCO2 ARTERIAL (BEAKER) (test ayrv=208) 45 mmHg 35-45 PO2 ARTERIAL (BEAKER) (test lxks=574) 67 mmHg 80-90 O2 SATURATION ARTERIAL (BEAKER) (test ikbh=074) 93.7 % 96.0-97.0 HCO3 ARTERIAL (BEAKER) (test zqcu=366) 31 mmol/L 21-29 BASE EXCESS ARTERIAL (BEAKER) (test dfbt=674) 6.5 mmol/L -2.0-3.0 PATIENT TEMPERATURE (BEAKER) (test opsr=0196) 37.3 C FIO2 (BEAKER) (test zvhs=4123) 50.0 % Daily ABG with morning labs while patient is intubated.CBC (HEMOGRAM ONLY)07-21 04:49:00 Test Item Value Reference Range Comments WHITE BLOOD CELL COUNT (BEAKER) (test papg=844) 8.0 K/ L 3.5-10.5 RED BLOOD CELL COUNT (BEAKER) (test scer=466) 3.38 M/ L 3.93-5.22 HEMOGLOBIN (BEAKER) (test nwdq=187) 9.8 GM/DL 11.2-15.7 HEMATOCRIT (BEAKER) (test uxiz=388) 32.8 % 34.1-44.9 MEAN CORPUSCULAR VOLUME (BEAKER) (test xlpc=848) 97.0 fL 79.4-94.8 MEAN CORPUSCULAR HEMOGLOBIN (BEAKER) (test 29.0 pg 25.6-32.2 lqax=766) MEAN CORPUSCULAR HEMOGLOBIN CONC (BEAKER) (test 29.9 GM/DL 32.2-35.5 lrga=609) RED CELL DISTRIBUTION WIDTH (BEAKER) (test 16.0 % 11.7-14.4 zgmq=746) PLATELET COUNT (BEAKER) (test btxe=269) 185 K/CU MM 150-450 MEAN PLATELET VOLUME (BEAKER) (test flih=884) 13.0 fL 9.4-12.3 NUCLEATED RED BLOOD CELLS (BEAKER) (test 0 /100 WBC 0-0 lrvk=174) RAD, CHEST, 1 VIEW, NON [id number] 04:30:00Reason for exam:->s/p TEVAR with linesShould this be performed at the bedside?->YesFINAL REPORT CLINICAL INDICATION: Postop Comparison: 07/20/2017 The cardiomediastinal contours are stable. Bilateral parenchymal opacities are similar within variation of acquisition technique. There is no pneumothorax. Support lines are stable. Signed: Sarmad Stevenson Verified Date/Time: 07/21/2017 04:30:10 Reading Location: [address] Reading Room POCT- GLUCOSE [id number] 18:53:00 Test Item Value Reference Range Comments POC-GLUCOSE METER (BEAKER) 159 mg/dL 70-110 TESTED AT [address] (test mqpk=0081) [facility] [address] POCT-GLUCOSE [id number] 14:00:00 Test Item Value Reference Range Comments POC-GLUCOSE METER (BEAKER) 165 mg/dL 70-[address] [facility] [address] [facility] (test jzbi=1753) [facility] [address] TSH/FREE T4 IF [id number] 06:13:00 Test Item Value Reference Range Comments THYROID STIMULATING HORMONE (BEAKER) (test 1.13 uIU/mL 0.35-4.94 zjsk=311) BLOOD GAS, [id number] 05:09:00 Test Item Value Reference Range Comments PH ARTERIAL (BEAKER) (test whou=684) 7.48 7.35-7.45 PCO2 ARTERIAL (BEAKER) (test mxoq=262) 44 mmHg 35-45 PO2 ARTERIAL (BEAKER) (test mrhd=968) 72 mmHg 80-90 O2 SATURATION ARTERIAL (BEAKER) (test fbfx=569) 95.1 % 96.0-97.0 HCO3 ARTERIAL (BEAKER) (test pzrn=130) 32 mmol/L 21-29 BASE EXCESS ARTERIAL (BEAKER) (test kiyk=036) 7.7 mmol/L -2.0-3.0 PATIENT TEMPERATURE (BEAKER) (test yoqa=6343) 37.5 C FIO2 (BEAKER) (test vser=3301) 50.0 % Daily ABG with morning labs while patient is intubated.RAD, CHEST, 1 VIEW, NON [id number] 04:59:00Reason for exam:->s/p TEVAR with linesShould this [...] MDReport Verified Date/Time: 07/20/2017 04:59:27 Reading Location: [address] Reading Room [id number] 04:41 :00 Test Item Value Reference Range Comments PHOSPHORUS (BEAKER) (test fmqc=482) 2.8 mg/dL 2.3-4.7 [id number] 04:41:00 Test Item Value Reference Range Comments MAGNESIUM (BEAKER) (test ifxw=215) 2.3 mg/dL 1.6-2.6 BASIC METABOLIC [id number] 04:41:00 Test Item Value Reference Range Comments SODIUM (BEAKER) (test 152 meq/L 136-145 oapc=284) POTASSIUM (BEAKER) (test 3.3 meq/L 3.5-5.1 clec=871) CHLORIDE (BEAKER) (test 113 meq/L 98-107 dvds=215) CO2 (BEAKER) (test 30 meq/L 22-29 kkdi=333) BLOOD UREA NITROGEN 35 mg/dL 7-21 (BEAKER) (test proy=651) CREATININE (BEAKER) (test 1.37 mg/dL 0.57-1.25 gyom=297) GLUCOSE RANDOM (BEAKER) 154 mg/dL 70-105 (test diqt=480) CALCIUM (BEAKER) (test 9.1 mg/dL 8.4-10.2 zwza=916) EGFR (BEAKER) (test 39 mL/min/1.73 sq m ESTIMATED GFR IS NOT rsbx=9500) ACCURATE CREATININE CLEARANCE IN PREDICTING GLOMERULAR FILTRATION RATE. ESTIMATED GFR IS NOT APPLICABLE FOR DIALYSIS PATIENTS. [id number] 04:21:00 Test Item Value Reference Range Comments PARTIAL THROMBOPLASTIN TIME (BEAKER) (test 25.5 seconds 22.5-36.0 dpaf=562) PROTHROMBIN TIME/[id number] 04:20:00 Test Item Value Reference Range Comments PROTIME (BEAKER) (test rzyk=167) 14.5 seconds 11.7-14.7 INR (BEAKER) (test txln=134) 1.1 <=5.9 RECOMMENDED COUMADIN/WARFARIN INR THERAPY RANGESSTANDARD DOSE: 2.0 - 3.0 Includes: PROPHYLAXIS forvenous thrombosis, systemic embolization; TREATMENT for venous thrombosis and/or pulmonary embolus.HIGH RISK: Target INR is 2.5-3.5 for patients with mechanical heart valves.CBC (HEMOGRAM ONLY)2017-07-20 04:13:00 Test Item Value Reference Range Comments WHITE BLOOD CELL COUNT (BEAKER) (test pofy=178) 9.4 K/ L 3.5-10.5 RED BLOOD CELL COUNT (BEAKER) (test dfgs=286) 3.56 M/ L 3.93-5.22 HEMOGLOBIN (BEAKER) (test pxgw=650) 10.1 GM/DL 11.2-15.7 HEMATOCRIT (BEAKER) (test nvon=378) 34.2 % 34.1-44.9 MEAN CORPUSCULAR VOLUME (BEAKER) (test phkk=227) 96.1 fL 79.4-94.8 MEAN CORPUSCULAR HEMOGLOBIN (BEAKER) (test 28.4 pg 25.6-32.2 yupv=156) MEAN CORPUSCULAR HEMOGLOBIN CONC (BEAKER) (test 29.5 GM/DL 32.2-35.5 kasv=798) RED CELL DISTRIBUTION WIDTH (BEAKER) (test 16.0 % 11.7-14.4 jqqh=857) PLATELET COUNT (BEAKER) (test rtuv=530) 180 K/CU MM 150-450 MEAN PLATELET VOLUME (BEAKER) (test brmv=518) 12.0 fL 9.4-12.3 NUCLEATED RED BLOOD CELLS (BEAKER) (test 0 /100 WBC 0-0 eazp=668) POCT-GLUCOSE [id number] 17:18:00 Test Item Value Reference Range Comments POC-GLUCOSE METER (BEAKER) 171 mg/dL 70-110 TESTED AT [address] (test vhau=4230) [facility] [address] BLOOD GAS, [id number] 12:49:00 Test Item Value Reference Range Comments PH ARTERIAL (BEAKER) (test qmht=702) 7.47 7.35-7.45 PCO2 ARTERIAL (BEAKER) (test wlct=379) 45 mmHg 35-45 PO2 ARTERIAL (BEAKER) (test munn=580) 75 mmHg 80-90 O2 SATURATION ARTERIAL (BEAKER) (test bkon=718) 95.8 % 96.0-97.0 HCO3 ARTERIAL (BEAKER) (test wdww=358) 32 mmol/L 21-29 BASE EXCESS ARTERIAL (BEAKER) (test zddc=575) 7.9 mmol/L -2.0-3.0 PATIENT TEMPERATURE (BEAKER) (test tycl=7052) 37.1 C FIO2 (BEAKER) (test ctkn=5775) 50.0 % RAD, ABDOMEN/KUB, 1 VIEW [id number] 09:23:00Reason for exam:->NG tubeFINAL REPORT Abdomen four [...] Verified Date/Time: 07/19/2017 09: 23:13 Reading Location: [address] Consult Reading Room RAD, CHEST, 1 VIEW, NON [id number] 09:13:00Reason for exam:->s/p intubationFINAL REPORT Chest one view AP 07/19/2017 9:13 AM CLINICAL INDICATION: s/p intubation COMPARISON: 07/19/2017 at 0402 IMPRESSION: Support hardware is in satisfactory radiographic position. Cardiomediastinal contours are stable. There is mild pulmonary edema. Opacity in the right lower lobe is concerning for pneumonia. There is bibasilar atelectasis. Signed: Quinn Wiley Verified Date/Time: 07/19/2017 09:13:36 Reading Location: [facility] C0[facility] Consult Reading Room [id number] 04:27:00 Test Item Value Reference Range Comments PHOSPHORUS (BEAKER) (test eqwc=536) 2.3 mg/dL 2.3-4.7 [id number] 04:27:00 Test Item Value Reference Range Comments MAGNESIUM (BEAKER) (test ulcj=605) 2.1 mg/dL 1.6-2.6 BASIC METABOLIC [id number] 04:27:00 Test Item Value Reference Range Comments SODIUM (BEAKER) (test 151 meq/L 136-145 cmha=472) POTASSIUM (BEAKER) (test 3.7 meq/L 3.5-5.1 ytts=655) CHLORIDE (BEAKER) (test 112 meq/L 98-107 lafi=697) CO2 (BEAKER) (test 29 meq/L 22-29 eyni=920) BLOOD UREA NITROGEN 30 mg/dL 7-21 (BEAKER) (test ychf=073) CREATININE (BEAKER) (test 1.28 mg/dL 0.57-1.25 csxs=460) GLUCOSE RANDOM (BEAKER) 170 mg/dL 70-105 (test wuqa=606) CALCIUM (BEAKER) (test 9.2 mg/dL 8.4-10.2 soeq=990) EGFR (BEAKER) (test 42 mL/min/1.73 sq m ESTIMATED GFR IS NOT aqke=3180) ACCURATE CREATININE CLEARANCE IN PREDICTING GLOMERULAR FILTRATION RATE. ESTIMATED GFR IS NOT APPLICABLE FOR DIALYSIS PATIENTS. [id number] 04:25:00 Test Item Value Reference Range Comments PARTIAL THROMBOPLASTIN TIME (BEAKER) (test 25.2 seconds 22.5-36.0 sloc=602) PROTHROMBIN [id number] 04:24:00 Test Item Value Reference Range Comments PROTIME (BEAKER) (test dure=431) 14.7 seconds 11.7-14.7 INR (BEAKER) (test xxkh=750) 1.2 <=5.9 RECOMMENDED COUMADIN/WARFARIN INR THERAPY RANGESSTANDARD DOSE: 2.0 - 3.0 Includes: PROPHYLAXIS forvenous thrombosis, systemic embolization; TREATMENT for venous thrombosis and/or pulmonary embolus.HIGH RISK: Target INR is 2.5-3.5 for patients with mechanical heart valves.RAD, CHEST, 1 VIEW, NON [id number] 04:20:00Reason for exam:->s/p TEVAR with linesShould this be performed at the bedside?->YesFINAL REPORT CLINICAL INDICATION: Postop Comparison: 07/18/2017 The cardiomediastinal contours are stable. Central pulmonary vascular congestion and bilateral parenchymal opacities are similar within variation of acquisition technique. There is no pneumothorax. Support lines are stable. Signed: Sarmad Stevensonepjasbir Verified Date/Time: 04:20:17 Reading Location: [address] Reading Room 04:20 AMBLOOD GAS, [id number] 04:07:00 Test Item Value Reference Range Comments PH ARTERIAL (BEAKER) (test wmwi=377) 7.52 7.35-7.45 PCO2 ARTERIAL (BEAKER) (test wrng=424) 40 mmHg 35-45 PO2 ARTERIAL (BEAKER) (test cqcx=339) 79 mmHg 80-90 O2 SATURATION ARTERIAL (BEAKER) (test czoa=546) 96.6 % 96.0-97.0 HCO3 ARTERIAL (BEAKER) (test ixcg=604) 32 mmol/L 21-29 BASE EXCESS ARTERIAL (BEAKER) (test popi=333) 8.6 mmol/L -2.0-3.0 PATIENT TEMPERATURE (BEAKER) (test jeqi=6458) 37.2 C FIO2 (BEAKER) (test evmu=6565) 40.0 % Daily ABG with morning labs while patient is intubated.CBC (HEMOGRAM ONLY)07-19 04:02:00 Test Item Value Reference Range Comments WHITE BLOOD CELL COUNT (BEAKER) (test pkyd=178) 10.1 K/ L 3.5-10.5 RED BLOOD CELL COUNT (BEAKER) (test cxbb=993) 3.60 M/ L 3.93-5.22 HEMOGLOBIN (BEAKER) (test mkji=008) 10.4 GM/DL 11.2-15.7 HEMATOCRIT (BEAKER) (test ksqa=349) 34.2 % 34.1-44.9 MEAN CORPUSCULAR VOLUME (BEAKER) (test htdv=086) 95.0 fL 79.4-94.8 MEAN CORPUSCULAR HEMOGLOBIN (BEAKER) (test 28.9 pg 25.6-32.2 rodj=624) MEAN CORPUSCULAR HEMOGLOBIN CONC (BEAKER) (test 30.4 GM/DL 32.2-35.5 ampp=023) RED CELL DISTRIBUTION WIDTH (BEAKER) (test 16.1 % 11.7-14.4 lpkn=448) PLATELET COUNT (BEAKER) (test dkcq=026) 182 K/CU MM 150-450 MEAN PLATELET VOLUME (BEAKER) (test sjra=571) 12.0 fL 9.4-12.3 NUCLEATED RED BLOOD CELLS (BEAKER) (test 0 /100 WBC 0-0 ilqq=153) RAD, CHEST, 1 VIEW, NON [id number] 07:36:00Reason for exam:->s/p TEVAR with linesShould this [...] MDReport Verified Date/Time: 07/18/2017 07:36:42 Reading Location: [facility] C013Y CT Body Reading Room 07: 36 AMBLOOD GAS, [id number] 04:19:00 Test Item Value Reference Range Comments PH ARTERIAL (BEAKER) (test ewul=218) 7.47 7.35-7.45 PCO2 ARTERIAL (BEAKER) (test hiyp=432) 49 mmHg 35-45 PO2 ARTERIAL (BEAKER) (test yxvi=076) 60 mmHg 80-90 O2 SATURATION ARTERIAL (BEAKER) (test afud=127) 91.5 % 96.0-97.0 HCO3 ARTERIAL (BEAKER) (test kmcm=648) 35 mmol/L 21-29 BASE EXCESS ARTERIAL (BEAKER) (test bsox=384) 9.7 mmol/L -2.0-3.0 PATIENT TEMPERATURE (BEAKER) (test wcea=2088) 37.5 C FIO2 (BEAKER) (test whbj=0327) 40.0 % Daily ABG with morning labs while patient is intubated.[id number] 04: 13:00 Test Item Value Reference Range Comments PHOSPHORUS (BEAKER) (test kvbv=550) 2.2 mg/dL 2.3-4.7 [id number] 04:13:00 Test Item Value Reference Range Comments MAGNESIUM (BEAKER) (test kogd=313) 2.4 mg/dL 1.6-2.6 BASIC METABOLIC [id number] 04:13:00 Test Item Value Reference Range Comments SODIUM (BEAKER) (test 157 meq/L 136-145 oaqs=541) POTASSIUM (BEAKER) (test 3.6 meq/L 3.5-5.1 yspc=177) CHLORIDE (BEAKER) (test 116 meq/L 98-107 ynhk=743) CO2 (BEAKER) (test 31 meq/L 22-29 adia=853) BLOOD UREA NITROGEN 32 mg/dL 7-21 (BEAKER) (test vklv=253) CREATININE (BEAKER) (test 1.30 mg/dL 0.57-1.25 pztn=932) GLUCOSE RANDOM (BEAKER) 142 mg/dL 70-105 (test uyja=491) CALCIUM (BEAKER) (test 9.3 mg/dL 8.4-10.2 yjwy=573) EGFR (BEAKER) (test 42 mL/min/1.73 sq m ESTIMATED GFR IS NOT bxww=3323) ACCURATE CREATININE CLEARANCE IN PREDICTING GLOMERULAR FILTRATION RATE. ESTIMATED GFR IS NOT APPLICABLE FOR DIALYSIS PATIENTS. [id number] 04:11:00 Test Item Value Reference Range Comments PARTIAL THROMBOPLASTIN TIME (BEAKER) (test 25.6 seconds 22.5-36.0 kixf=668) PROTHROMBIN [id number] 04:10:00 Test Item Value Reference Range Comments PROTIME (BEAKER) (test rfmf=371) 16.2 seconds 11.7-14.7 INR (BEAKER) (test tsri=874) 1.3 <=5.9 RECOMMENDED COUMADIN/WARFARIN INR THERAPY RANGESSTANDARD DOSE: 2.0 - 3.0 Includes: PROPHYLAXIS forvenous thrombosis, systemic embolization; TREATMENT for venous thrombosis and/or pulmonary embolus.HIGH RISK: Target INR is 2.5-3.5 for patients with mechanical heart valves.CBC (HEMOGRAM ONLY)2017-07-18 03:59:00 Test Item Value Reference Range Comments WHITE BLOOD CELL COUNT (BEAKER) (test mxfo=085) 7.7 K/ L 3.5-10.5 RED BLOOD CELL COUNT (BEAKER) (test ghvu=829) 3.38 M/ L 3.93-5.22 HEMOGLOBIN (BEAKER) (test poin=926) 9.9 GM/DL 11.2-15.7 HEMATOCRIT (BEAKER) (test heef=871) 32.2 % 34.1-44.9 MEAN CORPUSCULAR VOLUME (BEAKER) (test mckf=127) 95.3 fL 79.4-94.8 MEAN CORPUSCULAR HEMOGLOBIN (BEAKER) (test 29.3 pg 25.6-32.2 jmya=481) MEAN CORPUSCULAR HEMOGLOBIN CONC (BEAKER) (test 30.7 GM/DL 32.2-35.5 smgi=504) RED CELL DISTRIBUTION WIDTH (BEAKER) (test 16.5 % 11.7-14.4 byor=166) PLATELET COUNT (BEAKER) (test jdyf=424) 154 K/CU MM 150-450 MEAN PLATELET VOLUME (BEAKER) (test ytnw=462) 11.6 fL 9.4-12.3 NUCLEATED RED BLOOD CELLS (BEAKER) (test 0 /100 WBC 0-0 kjsq=653) [id number] 19:40:00 Test Item Value Reference Range Comments POTASSIUM (BEAKER) (test eskl=529) 3.5 meq/L 3.5-5.1 POCT-GLUCOSE [id number] 18:35:00 Test Item Value Reference Range Comments POC-GLUCOSE METER (BEAKER) 95 mg/dL 70-[address] [facility] [address] [facility] (test axnb=4814) [facility] [address] [id number] 13:27:00 Test Item Value Reference Range Comments PHOSPHORUS (BEAKER) (test utjd=169) 2.8 mg/dL 2.3-4.7 [id number] 13:27:00 Test Item Value Reference Range Comments MAGNESIUM (BEAKER) (test etgq=151) 2.5 mg/dL 1.6-2.6 COMPREHENSIVE METABOLIC [id number] 13:27:00 Test Item Value Reference Range Comments TOTAL PROTEIN (BEAKER) 6.9 gm/dL 6.0-8.3 (test uedt=318) ALBUMIN (BEAKER) (test 3.2 g/dL 3.5-5.0 lifc=3601) ALKALINE PHOSPHATASE 47 U/L 40-150 (BEAKER) (test xcks=848) BILIRUBIN TOTAL (BEAKER) 1.1 mg/dL 0.2-1.2 (test fwvy=493) SODIUM (BEAKER) (test 157 meq/L 136-145 attr=200) POTASSIUM (BEAKER) (test 3.3 meq/L 3.5-5.1 fyuy=054) CHLORIDE (BEAKER) (test 114 meq/L 98-107 vkbi=905) CO2 (BEAKER) (test 31 meq/L 22-29 rhkt=608) BLOOD UREA NITROGEN 32 mg/dL 7-21 (BEAKER) (test qqhw=548) CREATININE (BEAKER) (test 1.37 mg/dL 0.57-1.25 loys=890) GLUCOSE RANDOM (BEAKER) 107 mg/dL 70-105 (test qvyq=529) CALCIUM (BEAKER) (test 9.7 mg/dL 8.4-10.2 xqps=601) AST (SGOT) (BEAKER) (test 34 U/L 5-34 muwr=781) ALT (SGPT) (BEAKER) (test 26 U/L 6-55 dqvt=161) EGFR (BEAKER) (test 39 mL/min/1.73 sq m ESTIMATED GFR IS NOT xnjq=3403) ACCURATE CREATININE CLEARANCE IN PREDICTING GLOMERULAR FILTRATION RATE. ESTIMATED GFR IS NOT APPLICABLE FOR DIALYSIS PATIENTS. RAD, CHEST, 1 VIEW, NON [id number] 07:13:00Reason for exam:->s/p TEVAR with linesShould this be performed at the bedside?->YesFINAL REPORT Chest one view AP 07/17/2017 7:13 AM CLINICAL INDICATION: s/p TEVAR with lines COMPARISON: 07/16/2017 IMPRESSION: Support hardware is unchanged in position. Cardiomediastinal contours are stable. There is mild pulmonary edema. Bibasilar opacities suggest atelectasis. Pneumonia should be excluded clinically. Signed: Quinn Wiley Verified Date/Time: 07/17 07:13:59 Reading Location: [facility] Radiology Reading Room [id number] 03:55:00 Test Item Value Reference Range Comments PHOSPHORUS (BEAKER) (test uokm=164) 2.5 mg/dL 2.3-4.7 [id number] 03:55:00 Test Item Value Reference Range Comments MAGNESIUM (BEAKER) (test qvqo=169) 2.2 mg/dL 1.6-2.6 BASIC METABOLIC [id number] 03:55:00 Test Item Value Reference Range Comments SODIUM (BEAKER) (test 155 meq/L 136-145 iffv=499) POTASSIUM (BEAKER) (test 3.0 meq/L 3.5-5.1 pshb=136) CHLORIDE (BEAKER) (test 113 meq/L 98-107 kabb=096) CO2 (BEAKER) (test 30 meq/L 22-29 xtbe=202) BLOOD UREA NITROGEN 32 mg/dL 7-21 (BEAKER) (test cnix=484) CREATININE (BEAKER) (test 1.38 mg/dL 0.57-1.25 dgvy=788) GLUCOSE RANDOM (BEAKER) 105 mg/dL 70-105 (test fplt=759) CALCIUM (BEAKER) (test 9.6 mg/dL 8.4-10.2 dyrz=575) EGFR (BEAKER) (test 39 mL/min/1.73 sq m ESTIMATED GFR IS NOT uoka=4897) ACCURATE CREATININE CLEARANCE IN PREDICTING GLOMERULAR FILTRATION RATE. ESTIMATED GFR IS NOT APPLICABLE FOR DIALYSIS PATIENTS. CBC (HEMOGRAM ONLY)2017-07-17 03:51:00 Test Item Value Reference Range Comments WHITE BLOOD CELL COUNT (BEAKER) (test wirg=296) 5.5 K/ L 3.5-10.5 RED BLOOD CELL COUNT (BEAKER) (test wbka=003) 3.21 M/ L 3.93-5.22 HEMOGLOBIN (BEAKER) (test uspa=401) 9.3 GM/DL 11.2-15.7 HEMATOCRIT (BEAKER) (test ekow=959) 29.4 % 34.1-44.9 MEAN CORPUSCULAR VOLUME (BEAKER) (test mfnb=905) 91.6 fL 79.4-94.8 MEAN CORPUSCULAR HEMOGLOBIN (BEAKER) (test 29.0 pg 25.6-32.2 inad=312) MEAN CORPUSCULAR HEMOGLOBIN CONC (BEAKER) (test 31.6 GM/DL 32.2-35.5 ogkp=561) RED CELL DISTRIBUTION WIDTH (BEAKER) (test 16.6 % 11.7-14.4 odkb=851) PLATELET COUNT (BEAKER) (test yvct=325) 142 K/CU MM 150-450 MEAN PLATELET VOLUME (BEAKER) (test ipmc=587) 11.5 fL 9.4-12.3 NUCLEATED RED BLOOD CELLS (BEAKER) (test 1 /100 WBC 0-0 phgh=094) [id number] 03:49:00 Test Item Value Reference Range Comments PARTIAL THROMBOPLASTIN TIME (BEAKER) (test 28.5 seconds 22.5-36.0 uwaz=873) PROTHROMBIN [id number] 03:48:00 Test Item Value Reference Range Comments PROTIME (BEAKER) (test njfg=460) 14.7 seconds 11.7-14.7 INR (BEAKER) (test shkw=853) 1.2 <=5.9 RECOMMENDED COUMADIN/WARFARIN INR THERAPY RANGESSTANDARD DOSE: 2.0 - 3.0 Includes: PROPHYLAXIS forvenous thrombosis, systemic embolization; TREATMENT for venous thrombosis and/or pulmonary embolus.HIGH RISK: Target INR is 2.5-3.5 for patients with mechanical heart valves.BLOOD GAS, [id number] 03:28:00 Test Item Value Reference Range Comments PH ARTERIAL (BEAKER) (test qdjf=492) 7.49 7.35-7.45 PCO2 ARTERIAL (BEAKER) (test ifsi=974) 43 mmHg 35-45 PO2 ARTERIAL (BEAKER) (test hkem=062) 62 mmHg 80-90 O2 SATURATION ARTERIAL (BEAKER) (test lwbm=637) 92.7 % 96.0-97.0 HCO3 ARTERIAL (BEAKER) (test esac=998) 32 mmol/L 21-29 BASE EXCESS ARTERIAL (BEAKER) (test xjla=730) 8.2 mmol/L -2.0-3.0 PATIENT TEMPERATURE (BEAKER) (test broj=7002) 37.7 C FIO2 (BEAKER) (test gwld=3690) 40.0 % Daily ABG with morning labs while patient is intubated.HEPATIC FUNCTION [id number] 00:47:00 Test Item Value Reference Range Comments TOTAL PROTEIN (BEAKER) (test eoeu=789) 6.6 gm/dL 6.0-8.3 ALBUMIN (BEAKER) (test mckw=5876) 3.1 g/dL 3.5-5.0 BILIRUBIN TOTAL (BEAKER) (test tmvt=572) 1.0 mg/dL 0.2-1.2 BILIRUBIN DIRECT (BEAKER) (test aeii=556) 0.7 mg/dL 0.1-0.5 ALKALINE PHOSPHATASE (BEAKER) (test ctpc=894) 40 U/L 40-150 AST (SGOT) (BEAKER) (test hdiq=196) 22 U/L 5-34 ALT (SGPT) (BEAKER) (test zkbm=051) 22 U/L 6-55 PROTHROMBIN TIME/[id number] 00:35:00 Test Item Value Reference Range Comments PROTIME (BEAKER) (test odeb=687) 14.5 seconds 11.7-14.7 INR (BEAKER) (test ejsa=912) 1.1 <=5.9 RECOMMENDED COUMADIN/WARFARIN INR THERAPY RANGESSTANDARD DOSE: 2.0 - 3.0 Includes: PROPHYLAXIS forvenous thrombosis, systemic embolization; TREATMENT for venous thrombosis and/or pulmonary embolus.HIGH RISK: Target INR is 2.5-3.5 for patients with mechanical heart valves.CBC W/PLT COUNT & AUTO [id number] 00:33:00 Test Item Value Reference Range Comments WHITE BLOOD CELL COUNT (BEAKER) (test oybw=810) 5.9 K/ L 3.5-10.5 RED BLOOD CELL COUNT (BEAKER) (test nawe=199) 3.20 M/ L 3.93-5.22 HEMOGLOBIN (BEAKER) (test kmwo=135) 9.4 GM/DL 11.2-15.7 HEMATOCRIT (BEAKER) (test hzpq=084) 29.4 % 34.1-44.9 MEAN CORPUSCULAR VOLUME (BEAKER) (test pjdy=871) 91.9 fL 79.4-94.8 MEAN CORPUSCULAR HEMOGLOBIN (BEAKER) (test 29.4 pg 25.6-32.2 bxcd=162) MEAN CORPUSCULAR HEMOGLOBIN CONC (BEAKER) (test 32.0 GM/DL 32.2-35.5 ydjm=262) RED CELL DISTRIBUTION WIDTH (BEAKER) (test 16.4 % 11.7-14.4 dkfp=329) PLATELET COUNT (BEAKER) (test copp=536) 136 K/CU MM 150-450 MEAN PLATELET VOLUME (BEAKER) (test kfib=244) 11.9 fL 9.4-12.3 NUCLEATED RED BLOOD CELLS (BEAKER) (test 1 /100 WBC 0-0 putj=957) NEUTROPHILS RELATIVE PERCENT (BEAKER) (test 77 % masd=346) LYMPHOCYTES RELATIVE PERCENT (BEAKER) (test 9 % sgjh=731) MONOCYTES RELATIVE PERCENT (BEAKER) (test 8 % jzpn=429) EOSINOPHILS RELATIVE PERCENT (BEAKER) (test 0 % ndxn=013) BASOPHILS RELATIVE PERCENT (BEAKER) (test 0 % vaub=657) NEUTROPHILS ABSOLUTE COUNT (BEAKER) (test 4.52 K/ L 1.56-6.13 qtfd=483) LYMPHOCYTES ABSOLUTE COUNT (BEAKER) (test 0.53 K/ L 1.18-3.74 isna=380) MONOCYTES ABSOLUTE COUNT (BEAKER) (test 0.44 K/ L 0.24-0.36 hsih=972) EOSINOPHILS ABSOLUTE COUNT (BEAKER) (test 0.01 K/ L 0.04-0.36 iswa=392) BASOPHILS ABSOLUTE COUNT (BEAKER) (test 0.00 K/ L 0.01-0.08 kptu=713) IMMATURE GRANULOCYTES-RELATIVE PERCENT (BEAKER) 6 % 0-1 (test ccte=9708) POCT-GLUCOSE [id number] 16:59:00 Test Item Value Reference Range Comments POC-GLUCOSE METER (BEAKER) 103 mg/dL 70-110 TESTED AT [address] (test qrju=9694) [facility] [address] HEMOGLOBIN AND [id number] 14:35:00 Test Item Value Reference Range Comments HEMOGLOBIN (BEAKER) (test tebi=421) 9.3 GM/DL 11.2-15.7 HEMATOCRIT (BEAKER) (test eptp=007) 28.7 % 34.1-44.9 RAD, CHEST, 1 VIEW, NON [id number] 05:46:00Reason for exam:->s/p TEVAR with linesShould this [...] MDReport Verified Date/Time: 07/16/2017 05:46:18 Reading Location: [address] Reading Room 05 :46 [id number] 04:34:00 Test Item Value Reference Range Comments PHOSPHORUS (BEAKER) (test bmpk=992) 2.0 mg/dL 2.3-4.7 [id number] 04:34:00 Test Item Value Reference Range Comments MAGNESIUM (BEAKER) (test trjl=637) 2.2 mg/dL 1.6-2.6 BASIC METABOLIC [id number] 04:34:00 Test Item Value Reference Range Comments SODIUM (BEAKER) (test 150 meq/L 136-145 hqju=092) POTASSIUM (BEAKER) (test 3.5 meq/L 3.5-5.1 ofhq=855) CHLORIDE (BEAKER) (test 113 meq/L 98-107 yvys=868) CO2 (BEAKER) (test 29 meq/L 22-29 bpjm=982) BLOOD UREA NITROGEN 31 mg/dL 7-21 (BEAKER) (test flpq=979) CREATININE (BEAKER) (test 1.53 mg/dL 0.57-1.25 gbsx=250) GLUCOSE RANDOM (BEAKER) 100 mg/dL 70-105 (test fjph=440) CALCIUM (BEAKER) (test 9.3 mg/dL 8.4-10.2 grkn=213) EGFR (BEAKER) (test 34 mL/min/1.73 sq m ESTIMATED GFR IS NOT gxkw=6452) ACCURATE CREATININE CLEARANCE IN PREDICTING GLOMERULAR FILTRATION RATE. ESTIMATED GFR IS NOT APPLICABLE FOR DIALYSIS PATIENTS. PROTHROMBIN [id number] 04:21:00 Test Item Value Reference Range Comments PROTIME (BEAKER) (test efht=696) 15.4 seconds 11.7-14.7 INR (BEAKER) (test zrrx=086) 1.2 <=5.9 RECOMMENDED COUMADIN/WARFARIN INR THERAPY RANGESSTANDARD DOSE: 2.0 - 3.0 Includes: PROPHYLAXIS forvenous thrombosis, systemic embolization; TREATMENT for venous thrombosis and/or pulmonary embolus.HIGH RISK: Target INR is 2.5-3.5 for patients with mechanical heart valves.[id number] 04:21:00 Test Item Value Reference Range Comments PARTIAL THROMBOPLASTIN TIME (BEAKER) (test 30.1 seconds 22.5-36.0 havp=405) CBC (HEMOGRAM ONLY)2017-07-16 04:19:00 Test Item Value Reference Range Comments WHITE BLOOD CELL COUNT (BEAKER) (test wezz=708) 5.3 K/ L 3.5-10.5 RED BLOOD CELL COUNT (BEAKER) (test iclo=765) 2.98 M/ L 3.93-5.22 HEMOGLOBIN (BEAKER) (test lnkq=905) 8.8 GM/DL 11.2-15.7 HEMATOCRIT (BEAKER) (test kfhz=876) 27.0 % 34.1-44.9 MEAN CORPUSCULAR VOLUME (BEAKER) (test xklp=157) 90.6 fL 79.4-94.8 MEAN CORPUSCULAR HEMOGLOBIN (BEAKER) (test 29.5 pg 25.6-32.2 ygzg=621) MEAN CORPUSCULAR HEMOGLOBIN CONC (BEAKER) (test 32.6 GM/DL 32.2-35.5 iufv=499) RED CELL DISTRIBUTION WIDTH (BEAKER) (test 16.4 % 11.7-14.4 zprs=998) PLATELET COUNT (BEAKER) (test tlsl=058) 125 K/CU MM 150-450 MEAN PLATELET VOLUME (BEAKER) (test hnyd=277) 11.5 fL 9.4-12.3 NUCLEATED RED BLOOD CELLS (BEAKER) (test 1 /100 WBC 0-0 xqul=375) BLOOD GAS, [id number] 04:10:00 Test Item Value Reference Range Comments PH ARTERIAL (BEAKER) (test qikr=409) 7.44 7.35-7.45 PCO2 ARTERIAL (BEAKER) (test fnjy=003) 45 mmHg 35-45 PO2 ARTERIAL (BEAKER) (test swla=812) 67 mmHg 80-90 O2 SATURATION ARTERIAL (BEAKER) (test zfna=476) 93.2 % 96.0-97.0 HCO3 ARTERIAL (BEAKER) (test evqo=592) 30 mmol/L 21-29 BASE EXCESS ARTERIAL (BEAKER) (test ghvn=602) 5.0 mmol/L -2.0-3.0 PATIENT TEMPERATURE (BEAKER) (test jeps=1999) 37.7 C FIO2 (BEAKER) (test rizi=7499) 55.0 % Daily ABG with morning labs while patient is intubated.POCT-GLUCOSE [id number] 04:09:00 Test Item Value Reference Range Comments POC-GLUCOSE METER (BEAKER) 105 mg/dL 70-110 TESTED AT [address] (test onva=0230) [facility] [address] POCT-GLUCOSE [id number] 04:09:00 Test Item Value Reference Range Comments POC-GLUCOSE METER (BEAKER) 98 mg/dL 70-110 TESTED AT [address] (test kuyg=4587) [facility] [address] POCT-GLUCOSE [id number] 00:21:00 Test Item Value Reference Range Comments POC-GLUCOSE METER (BEAKER) 111 mg/dL 70-110 TESTED AT [address] (test fphl=3514) [facility] [address] POCT-GLUCOSE [id number] 20:18:00 Test Item Value Reference Range Comments POC-GLUCOSE METER (BEAKER) 84 mg/dL 70-110 TESTED AT [address] (test lkli=1655) [facility] [address] POCT-GLUCOSE [id number] 18:31:00 Test Item Value Reference Range Comments POC-GLUCOSE METER (BEAKER) 83 mg/dL 70-110 TESTED AT [address] (test ysco=9128) [facility] [address] POCT-GLUCOSE [id number] 15:52:00 Test Item Value Reference Range Comments POC-GLUCOSE METER (BEAKER) 97 mg/dL 70-110 TESTED AT [address] (test rulr=5598) [facility] [address] POCT-GLUCOSE [id number] 15:52:00 Test Item Value Reference Range Comments POC-GLUCOSE METER (BEAKER) 108 mg/dL 70-110 TESTED AT [address] (test fasq=9694) [facility] [address] GLUCOSE-STAT [id number] 12:32:00 Test Item Value Reference Range Comments GLUCOSE RANDOM (BEAKER) (test maed=832) 90 mg/dL 70-110 HGB/HCT (H&H) - STAT [id number] 12:32:00 Test Item Value Reference Range Comments HEMOGLOBIN (BEAKER) (test rxdu=281) 10.2 g/dL 12.0-15.0 HEMATOCRIT (BEAKER) (test pbhe=958) 30.0 % 36.0-45.0 POCT-GLUCOSE [id number] 11:08:00 Test Item Value Reference Range Comments POC-GLUCOSE METER (BEAKER) 109 mg/dL 70-110 TESTED AT [address] (test cjqe=2816) [place] [address] POCT-GLUCOSE [id number] 06:02:00 Test Item Value Reference Range Comments POC-GLUCOSE METER (BEAKER) 122 mg/dL 70-110 TESTED AT [address] (test eduy=4269) [place] [id number] BLOOD [id number] 05:01:00 Test Item Value Reference Range Comments CULTURE (BEAKER) (test aoap=3940) No growth in 5 days BASIC METABOLIC [id number] 04:44:00 Test Item Value Reference Range Comments SODIUM (BEAKER) (test 145 meq/L 136-145 cpkw=483) POTASSIUM (BEAKER) (test 3.9 meq/L 3.5-5.1 ynch=839) CHLORIDE (BEAKER) (test 113 meq/L 98-107 pgkp=376) CO2 (BEAKER) (test 25 meq/L 22-29 tswz=354) BLOOD UREA NITROGEN 34 mg/dL 7-21 (BEAKER) (test tuzd=926) CREATININE (BEAKER) (test 1.82 mg/dL 0.57-1.25 ogqa=055) GLUCOSE RANDOM (BEAKER) 113 mg/dL 70-105 (test wmgt=337) CALCIUM (BEAKER) (test 8.9 mg/dL 8.4-10.2 zjml=325) EGFR (BEAKER) (test 28 mL/min/1.73 sq m ESTIMATED GFR IS NOT gsoo=2408) ACCURATE CREATININE CLEARANCE IN PREDICTING GLOMERULAR FILTRATION RATE. ESTIMATED GFR IS NOT APPLICABLE FOR DIALYSIS PATIENTS. POCT-GLUCOSE [id number] 04:44:00 Test Item Value Reference Range Comments POC-GLUCOSE METER (BEAKER) 123 mg/dL 70-[address] [facility] [address] (test wazz=3660) [place] [address] [id number] 04:43:00 Test Item Value Reference Range Comments PHOSPHORUS (BEAKER) (test ibal=653) 2.8 mg/dL 2.3-4.7 [id number] 04:43:00 Test Item Value Reference Range Comments MAGNESIUM (BEAKER) (test nwlj=693) 2.0 mg/dL 1.6-2.6 [id number] 04:27:00 Test Item Value Reference Range Comments PARTIAL THROMBOPLASTIN TIME (BEAKER) (test 28.6 seconds 22.5-36.0 numb=837) PROTHROMBIN [id number] 04:26:00 Test Item Value Reference Range Comments PROTIME (BEAKER) (test zxmr=533) 15.8 seconds 11.7-14.7 INR (BEAKER) (test ddjg=368) 1.3 <=5.9 RECOMMENDED COUMADIN/WARFARIN INR THERAPY RANGESSTANDARD DOSE: 2.0 - 3.0 Includes: PROPHYLAXIS forvenous thrombosis, systemic embolization; TREATMENT for venous thrombosis and/or pulmonary embolus.HIGH RISK: Target INR is 2.5-3.5 for patients with mechanical heart valves.BLOOD GAS, [id number] 04:12:00 Test Item Value Reference Range Comments PH ARTERIAL (BEAKER) (test pspc=719) 7.34 7.35-7.45 PCO2 ARTERIAL (BEAKER) (test hpzc=760) 52 mmHg 35-45 PO2 ARTERIAL (BEAKER) (test zbqy=149) 79 mmHg 80-90 O2 SATURATION ARTERIAL (BEAKER) (test uhlj=739) 94.3 % 96.0-97.0 HCO3 ARTERIAL (BEAKER) (test nrgq=866) 27 mmol/L 21-29 BASE EXCESS ARTERIAL (BEAKER) (test qseu=159) 1.2 mmol/L -2.0-3.0 PATIENT TEMPERATURE (BEAKER) (test acrw=5471) 37.6 C FIO2 (BEAKER) (test nfat=6455) 90.0 % Daily ABG with morning labs while patient is intubated.CBC (HEMOGRAM ONLY)07-15 04:12:00 Test Item Value Reference Range Comments WHITE BLOOD CELL COUNT (BEAKER) (test biba=545) 7.7 K/ L 3.5-10.5 RED BLOOD CELL COUNT (BEAKER) (test rygm=570) 2.70 M/ L 3.93-5.22 HEMOGLOBIN (BEAKER) (test pcem=686) 8.0 GM/DL 11.2-15.7 HEMATOCRIT (BEAKER) (test vwss=299) 25.0 % 34.1-44.9 MEAN CORPUSCULAR VOLUME (BEAKER) (test nvek=208) 92.6 fL 79.4-94.8 MEAN CORPUSCULAR HEMOGLOBIN (BEAKER) (test 29.6 pg 25.6-32.2 bwkh=849) MEAN CORPUSCULAR HEMOGLOBIN CONC (BEAKER) (test 32.0 GM/DL 32.2-35.5 woxe=993) RED CELL DISTRIBUTION WIDTH (BEAKER) (test 15.9 % 11.7-14.4 gfun=497) PLATELET COUNT (BEAKER) (test jnjo=413) 132 K/CU MM 150-450 MEAN PLATELET VOLUME (BEAKER) (test mdav=307) 11.1 fL 9.4-12.3 NUCLEATED RED BLOOD CELLS (BEAKER) (test 1 /100 WBC 0-0 ndws=198) RAD, CHEST, 1 VIEW, NON [id number] 03:29:00Reason for exam:->s/p TEVAR with linesShould this [...] MDReport Verified Date/Time: 07/15/2017 03:29:41 Reading Location: [address] Reading Room POCT- GLUCOSE [id number] 02:23:00 Test Item Value Reference Range Comments POC-GLUCOSE METER (BEAKER) 142 mg/dL 70-110 TESTED AT [address] (test mhru=9678) [place] [id number] POCT-GLUCOSE [id number] 23:51:00 Test Item Value Reference Range Comments POC-GLUCOSE METER (BEAKER) 141 mg/dL 70-110 TESTED AT [address] (test vzgn=6867) [place] [id number] POCT-GLUCOSE [id number] 21:59:00 Test Item Value Reference Range Comments POC-GLUCOSE METER (BEAKER) 133 mg/dL 70-110 TESTED AT [address] (test ncig=5385) [place] [address] POCT-GLUCOSE [id number] 19:55:00 Test Item Value Reference Range Comments POC-GLUCOSE METER (BEAKER) 138 mg/dL 70-110 TESTED AT [address] (test phnn=2261) [place] [address] HEMOGLOBIN AND [id number] 18:42:00 Test Item Value Reference Range Comments HEMOGLOBIN (BEAKER) (test zgce=245) 8.3 GM/DL 11.2-15.7 HEMATOCRIT (BEAKER) (test wpfb=903) 25.8 % 34.1-44.9 POCT-GLUCOSE [id number] 18:23:00 Test Item Value Reference Range Comments POC-GLUCOSE METER (BEAKER) 143 mg/dL 70-110 TESTED AT [address] (test cvvg=4731) [place] [id number] POCT-GLUCOSE [id number] 16:11:00 Test Item Value Reference Range Comments POC-GLUCOSE METER (BEAKER) 141 mg/dL 70-110 TESTED AT [address] (test fhzg=7623) [place] [address] POCT-GLUCOSE [id number] 14:10:00 Test Item Value Reference Range Comments POC-GLUCOSE METER (BEAKER) 118 mg/dL 70-110 TESTED AT [address] (test jphc=6956) [place] [address] HEMOGLOBIN AND [id number] 13:16:00 Test Item Value Reference Range Comments HEMOGLOBIN (BEAKER) (test ynex=321) 8.9 GM/DL 11.2-15.7 HEMATOCRIT (BEAKER) (test urbf=612) 28.4 % 34.1-44.9 POCT-GLUCOSE [id number] 13:04:00 Test Item Value Reference Range Comments POC-GLUCOSE METER (BEAKER) 139 mg/dL 70-110 TESTED AT [address] (test zddx=4093) [place] [address] SPUTUM CULTURE + GRAM [id number] 12:21:00 Test Item Value Reference Range Comments CULTURE (BEAKER) (test 3+ Normal respiratory ambreen irrh=8579) present GRAM STAIN RESULT (BEAKER) 1+ WBCs (test pmhv=6578) GRAM STAIN RESULT (BEAKER) 0-5 epithelial cells (test zzpc=72960) GRAM STAIN RESULT (BEAKER) <1+ gram positive rods (test qnze=98921) GRAM STAIN RESULT (BEAKER) <1+ gram positive cocci in pairs (test czci=368922) POCT-GLUCOSE [id number] 12:05:00 Test Item Value Reference Range Comments POC-GLUCOSE METER (BEAKER) 98 mg/dL 70-110 TESTED AT [address] (test pvnh=5844) [place] [address] POCT-GLUCOSE [id number] 10:14:00 Test Item Value Reference Range Comments POC-GLUCOSE METER (BEAKER) 108 mg/dL 70-110 TESTED AT [address] (test xrct=5226) [place] [address] POCT-GLUCOSE [id number] 08:06:00 Test Item Value Reference Range Comments POC-GLUCOSE METER (BEAKER) 115 mg/dL 70-110 TESTED AT [address] (test uqom=7550) [place] [address] RAD, CHEST, 1 VIEW, NON [id number] 07:45:00Reason for exam:->s/p TEVAR with linesShould this [...] MDReport Verified Date/Time: 07/14/2017 07:45:16 Reading Location: [facility] [id number] Ortho Consult Reading Room POCT- GLUCOSE [id number] 06:00:00 Test Item Value Reference Range Comments POC-GLUCOSE METER (BEAKER) 132 mg/dL 70-[address] [facility] [address] [facility] (test vslz=7058) [facility] [address] CBC (HEMOGRAM ONLY)2017-07-14 05:27:00 Test Item Value Reference Range Comments WHITE BLOOD CELL COUNT (BEAKER) (test dqsg=950) 11.5 K/ L 3.5-10.5 RED BLOOD CELL COUNT (BEAKER) (test inkq=060) 2.92 M/ L 3.93-5.22 HEMOGLOBIN (BEAKER) (test adwn=036) 8.6 GM/DL 11.2-15.7 HEMATOCRIT (BEAKER) (test mwgd=830) 27.0 % 34.1-44.9 MEAN CORPUSCULAR VOLUME (BEAKER) (test ogdb=485) 92.5 fL 79.4-94.8 MEAN CORPUSCULAR HEMOGLOBIN (BEAKER) (test 29.5 pg 25.6-32.2 fpwc=695) MEAN CORPUSCULAR HEMOGLOBIN CONC (BEAKER) (test 31.9 GM/DL 32.2-35.5 eoqh=125) RED CELL DISTRIBUTION WIDTH (BEAKER) (test 15.9 % 11.7-14.4 zwqq=097) PLATELET COUNT (BEAKER) (test ybip=723) 177 K/CU MM 150-450 MEAN PLATELET VOLUME (BEAKER) (test riym=395) 11.3 fL 9.4-12.3 NUCLEATED RED BLOOD CELLS (BEAKER) (test 0 /100 WBC 0-0 tkkt=113) BASIC METABOLIC [id number] 04:59:00 Test Item Value Reference Range Comments SODIUM (BEAKER) (test 147 meq/L 136-145 mcwc=806) POTASSIUM (BEAKER) (test 4.6 meq/L 3.5-5.1 lujh=902) CHLORIDE (BEAKER) (test 116 meq/L 98-107 vcds=452) CO2 (BEAKER) (test 25 meq/L 22-29 noip=358) BLOOD UREA NITROGEN 36 mg/dL 7-21 (BEAKER) (test tzlv=420) CREATININE (BEAKER) (test 2.11 mg/dL 0.57-1.25 ftlk=053) GLUCOSE RANDOM (BEAKER) 121 mg/dL 70-105 (test qcin=916) CALCIUM (BEAKER) (test 8.5 mg/dL 8.4-10.2 pioz=562) EGFR (BEAKER) (test 24 mL/min/1.73 sq m ESTIMATED GFR IS NOT iaev=6514) ACCURATE CREATININE CLEARANCE IN PREDICTING GLOMERULAR FILTRATION RATE. ESTIMATED GFR IS NOT APPLICABLE FOR DIALYSIS PATIENTS. BLOOD GAS, [id number] 04:43:00 Test Item Value Reference Range Comments PH ARTERIAL (BEAKER) (test icsa=618) 7.25 7.35-7.45 PCO2 ARTERIAL (BEAKER) (test nabr=184) 57 mmHg 35-45 PO2 ARTERIAL (BEAKER) (test tmkf=217) 63 mmHg 80-90 O2 SATURATION ARTERIAL (BEAKER) (test hlbe=188) 86.8 % 96.0-97.0 HCO3 ARTERIAL (BEAKER) (test gjgf=524) 24 mmol/L 21-29 BASE EXCESS ARTERIAL (BEAKER) (test oose=491) -3.4 mmol/L -2.0-3.0 PATIENT TEMPERATURE (BEAKER) (test bvia=4297) 37.6 C FIO2 (BEAKER) (test xwpp=8237) 100.0 % Daily ABG with morning labs while patient is intubated.[id number] 04:38:00 Test Item Value Reference Range Comments PARTIAL THROMBOPLASTIN TIME (BEAKER) (test 28.6 seconds 22.5-36.0 hzjc=371) PROTHROMBIN [id number] 04:37:00 Test Item Value Reference Range Comments PROTIME (BEAKER) (test knvf=790) 15.3 seconds 11.7-14.7 INR (BEAKER) (test jlrj=556) 1.2 <=5.9 RECOMMENDED COUMADIN/WARFARIN INR THERAPY RANGESSTANDARD DOSE: 2.0 - 3.0 Includes: PROPHYLAXIS forvenous thrombosis, systemic embolization; TREATMENT for venous thrombosis and/or pulmonary embolus.HIGH RISK: Target INR is 2.5-3.5 for patients with mechanical heart valves.[id number] 04:36:00 Test Item Value Reference Range Comments PHOSPHORUS (BEAKER) (test ujco=296) 3.5 mg/dL 2.3-4.7 [id number] 04:36:00 Test Item Value Reference Range Comments MAGNESIUM (BEAKER) (test pwfw=323) 1.7 mg/dL 1.6-2.6 POCT-GLUCOSE [id number] 04:11:00 Test Item Value Reference Range Comments POC-GLUCOSE METER (BEAKER) 136 mg/dL 70-110 TESTED AT [address] (test tlhn=1594) [facility] [address] POCT-GLUCOSE [id number] 04:10:00 Test Item Value Reference Range Comments POC-GLUCOSE METER (BEAKER) 132 mg/dL 70-110 TESTED AT [address] (test xcpe=6586) [facility] [address] POCT-GLUCOSE [id number] 23:58:00 Test Item Value Reference Range Comments POC-GLUCOSE METER (BEAKER) 143 mg/dL 70-110 TESTED AT [address] (test jcyh=1069) [facility] [address] POCT-GLUCOSE [id number] 23:29:00 Test Item Value Reference Range Comments POC-GLUCOSE METER (BEAKER) 137 mg/dL 70-110 TESTED AT [address] (test wrft=8810) [facility] [address] POCT-GLUCOSE [id number] 22:04:00 Test Item Value Reference Range Comments POC-GLUCOSE METER (BEAKER) 144 mg/dL 70-110 TESTED AT [address] (test avgo=3342) [facility] [address] POCT-GLUCOSE [id number] 22:04:00 Test Item Value Reference Range Comments POC-GLUCOSE METER (BEAKER) 135 mg/dL 70-110 TESTED AT [address] (test bxxt=7639) [facility] [address] POCT-GLUCOSE [id number] 20:31:00 Test Item Value Reference Range Comments POC-GLUCOSE METER (BEAKER) 151 mg/dL 70-110 TESTED AT [address] (test zluz=0974) [facility] [address] POCT-GLUCOSE [id number] 19:10:00 Test Item Value Reference Range Comments POC-GLUCOSE METER (BEAKER) 128 mg/dL 70-110 TESTED AT [address] (test fbjp=4003) [place] [address] [id number] 18:46:00 Test Item Value Reference Range Comments POTASSIUM (BEAKER) (test kfhw=564) 4.8 meq/L 3.5-5.1 HEMOGLOBIN AND [id number] 18:19:00 Test Item Value Reference Range Comments HEMOGLOBIN (BEAKER) (test npiz=399) 9.8 GM/DL 11.2-15.7 HEMATOCRIT (BEAKER) (test dasx=502) 30.1 % 34.1-44.9 POCT-GLUCOSE [id number] 18:14:00 Test Item Value Reference Range Comments POC-GLUCOSE METER (BEAKER) 139 mg/dL 70-110 TESTED AT [address] (test bjvk=4017) [place] [address] POCT-GLUCOSE [id number] 18:14:00 Test Item Value Reference Range Comments POC-GLUCOSE METER (BEAKER) 127 mg/dL 70-110 TESTED AT [address] (test shdx=5873) [place] [address] POCT-GLUCOSE [id number] 16:14:00 Test Item Value Reference Range Comments POC-GLUCOSE METER (BEAKER) 82 mg/dL 70-110 TESTED AT [address] (test pxil=7077) [place] [address] BLOOD GAS, [id number] 14:20:00 Test Item Value Reference Range Comments PH ARTERIAL (BEAKER) (test oegw=150) 7.24 7.35-7.45 PCO2 ARTERIAL (BEAKER) (test gjap=534) 57 mmHg 35-45 PO2 ARTERIAL (BEAKER) (test zyzf=078) 58 mmHg 80-90 O2 SATURATION ARTERIAL (BEAKER) (test mctu=000) 86.6 % 96.0-97.0 HCO3 ARTERIAL (BEAKER) (test pmpj=890) 24 mmol/L 21-29 BASE EXCESS ARTERIAL (BEAKER) (test colo=714) -4.1 mmol/L -2.0-3.0 PATIENT TEMPERATURE (BEAKER) (test niwy=9213) 36.1 C FIO2 (BEAKER) (test czge=0100) 100.0 % POCT-GLUCOSE [id number] 14:18:00 Test Item Value Reference Range Comments POC-GLUCOSE METER (BEAKER) 107 mg/dL 70-110 TESTED AT [address] (test nakn=6639) [place] [address] POCT-GLUCOSE [id number] 13:22:00 Test Item Value Reference Range Comments POC-GLUCOSE METER (BEAKER) 110 mg/dL 70-110 TESTED AT [address] (test rzea=6412) [place] [address] BLOOD GAS, [id number] 12:11:00 Test Item Value Reference Range Comments PH ARTERIAL (BEAKER) (test wsdh=509) 7.23 7.35-7.45 PCO2 ARTERIAL (BEAKER) (test uoht=691) 57 mmHg 35-45 PO2 ARTERIAL (BEAKER) (test tkev=453) 57 mmHg 80-90 O2 SATURATION ARTERIAL (BEAKER) (test zaco=982) 84.5 % 96.0-97.0 HCO3 ARTERIAL (BEAKER) (test khql=860) 24 mmol/L 21-29 BASE EXCESS ARTERIAL (BEAKER) (test xgav=676) -4.4 mmol/L -2.0-3.0 PATIENT TEMPERATURE (BEAKER) (test yudk=4185) 36.7 C FIO2 (BEAKER) (test aizd=2433) 90.0 % HEMOGLOBIN AND [id number] 12:07:00 Test Item Value Reference Range Comments HEMOGLOBIN (BEAKER) (test jyiy=006) 9.1 GM/DL 11.2-15.7 HEMATOCRIT (BEAKER) (test iaev=433) 28.9 % 34.1-44.9 POCT-GLUCOSE [id number] 12:05:00 Test Item Value Reference Range Comments POC-GLUCOSE METER (BEAKER) 144 mg/dL 70-110 TESTED AT [address] (test hwmg=0225) [place] [address] POCT-GLUCOSE [id number] 11:41:00 Test Item Value Reference Range Comments POC-GLUCOSE METER (BEAKER) 134 mg/dL 70-110 TESTED AT [address] (test gdka=0417) [place] [address] POCT-GLUCOSE [id number] 10:36:00 Test Item Value Reference Range Comments POC-GLUCOSE METER (BEAKER) 179 mg/dL 70-110 TESTED AT [address] (test tvdr=5172) [facility] [address] [id number] 10:25:00 Test Item Value Reference Range Comments MAGNESIUM (BEAKER) (test 1.8 mg/dL 1.6-2.6 Specimen slightly hemolyzed pjjd=257) [id number] 10:25:00 Test Item Value Reference Range Comments PHOSPHORUS (BEAKER) (test 3.6 mg/dL 2.3-4.7 Specimen slightly hemolyzed qona=583) BASIC METABOLIC [id number] 10:25:00 Test Item Value Reference Range Comments SODIUM (BEAKER) (test 140 meq/L 136-145 ntcq=857) POTASSIUM (BEAKER) (test 5.4 meq/L 3.5-5.1 Specimen slightly vajj=560) hemolyzed CHLORIDE (BEAKER) (test 113 meq/L 98-107 obio=649) CO2 (BEAKER) (test 16 meq/L 22-29 tgbr=694) BLOOD UREA NITROGEN 31 mg/dL 7-21 (BEAKER) (test czze=140) CREATININE (BEAKER) (test 1.73 mg/dL 0.57-1.25 Specimen slightly pyof=162) hemolyzed GLUCOSE RANDOM (BEAKER) 97 mg/dL 70-105 (test ofta=610) CALCIUM (BEAKER) (test 8.8 mg/dL 8.4-10.2 ptmm=915) EGFR (BEAKER) (test 30 mL/min/1.73 sq m ESTIMATED GFR IS NOT zppi=4186) ACCURATE CREATININE CLEARANCE IN PREDICTING GLOMERULAR FILTRATION RATE. ESTIMATED GFR IS NOT APPLICABLE FOR DIALYSIS PATIENTS. POCT-GLUCOSE [id number] 10:01:00 Test Item Value Reference Range Comments POC-GLUCOSE METER (BEAKER) 177 mg/dL 70-110 TESTED AT [place] [id number] [facility] (test ujrp=8409) [facility] [address] PROTHROMBIN [id number] 09:48:00 Test Item Value Reference Range Comments PROTIME (BEAKER) (test qmgq=320) 14.0 seconds 11.7-14.7 INR (BEAKER) (test izgx=796) 1.1 <=5.9 RECOMMENDED COUMADIN/WARFARIN INR THERAPY RANGESSTANDARD DOSE: 2.0 - 3.0 Includes: PROPHYLAXIS forvenous thrombosis, systemic embolization; TREATMENT for venous thrombosis and/or pulmonary embolus.HIGH RISK: Target INR is 2.5-3.5 for patients with mechanical heart valves.[id number] 09:48:00 Test Item Value Reference Range Comments PARTIAL THROMBOPLASTIN TIME (BEAKER) (test 26.0 seconds 22.5-36.0 jsgj=220) CBC (HEMOGRAM ONLY)2017-07-13 09:42:00 Test Item Value Reference Range Comments WHITE BLOOD CELL COUNT (BEAKER) (test ufax=308) 18.5 K/ L 3.5-10.5 RED BLOOD CELL COUNT (BEAKER) (test nlmt=331) 3.15 M/ L 3.93-5.22 HEMOGLOBIN (BEAKER) (test bzaz=163) 9.2 GM/DL 11.2-15.7 HEMATOCRIT (BEAKER) (test agua=639) 30.9 % 34.1-44.9 MEAN CORPUSCULAR VOLUME (BEAKER) (test tyfn=210) 98.1 fL 79.4-94.8 MEAN CORPUSCULAR HEMOGLOBIN (BEAKER) (test 29.2 pg 25.6-32.2 exgb=654) MEAN CORPUSCULAR HEMOGLOBIN CONC (BEAKER) (test 29.8 GM/DL 32.2-35.5 bzyn=477) RED CELL DISTRIBUTION WIDTH (BEAKER) (test 15.2 % 11.7-14.4 qubk=387) PLATELET COUNT (BEAKER) (test eqex=753) 297 K/CU MM 150-450 MEAN PLATELET VOLUME (BEAKER) (test zwjc=193) 12.0 fL 9.4-12.3 NUCLEATED RED BLOOD CELLS (BEAKER) (test 0 /100 WBC 0-0 zjkn=255) TSH/FREE T4 IF [id number] 09:16:00 Test Item Value Reference Range Comments THYROID STIMULATING HORMONE (BEAKER) (test 2.18 uIU/mL 0.35-4.94 bfdd=684) POCT-GLUCOSE [id number] 09:16:00 Test Item Value Reference Range Comments POC-GLUCOSE METER (BEAKER) 168 mg/dL 70-[address] [facility] [address] [facility] (test fpva=0837) [facility] [address] POCT-GLUCOSE [id number] 09:16:00 Test Item Value Reference Range Comments POC-GLUCOSE METER (BEAKER) 159 mg/dL 70-[address] [facility] [address] [facility] (test rnjk=5895) [facility] [address] CBC W/PLT COUNT & AUTO [id number] 09:03:00 Test Item Value Reference Range Comments WHITE BLOOD CELL COUNT (BEAKER) (test dewz=620) 17.3 K/ L 3.5-10.5 RED BLOOD CELL COUNT (BEAKER) (test vrhc=645) 2.91 M/ L 3.93-5.22 HEMOGLOBIN (BEAKER) (test kbhf=185) 8.6 GM/DL 11.2-15.7 HEMATOCRIT (BEAKER) (test nlzh=118) 28.2 % 34.1-44.9 MEAN CORPUSCULAR VOLUME (BEAKER) (test jxej=573) 96.9 fL 79.4-94.8 MEAN CORPUSCULAR HEMOGLOBIN (BEAKER) (test 29.6 pg 25.6-32.2 bovq=295) MEAN CORPUSCULAR HEMOGLOBIN CONC (BEAKER) (test 30.5 GM/DL 32.2-35.5 jcuz=690) RED CELL DISTRIBUTION WIDTH (BEAKER) (test 15.3 % 11.7-14.4 wiez=206) PLATELET COUNT (BEAKER) (test hjbq=825) 253 K/CU MM 150-450 MEAN PLATELET VOLUME (BEAKER) (test uxis=963) 11.5 fL 9.4-12.3 NUCLEATED RED BLOOD CELLS (BEAKER) (test 0 /100 WBC 0-0 fqsv=773) NEUTROPHILS RELATIVE PERCENT (BEAKER) (test 80 % jylg=218) LYMPHOCYTES RELATIVE PERCENT (BEAKER) (test 8 % cyub=718) MONOCYTES RELATIVE PERCENT (BEAKER) (test 10 % zqua=817) EOSINOPHILS RELATIVE PERCENT (BEAKER) (test 0 % xznu=934) BASOPHILS RELATIVE PERCENT (BEAKER) (test 0 % rqhg=925) NEUTROPHILS ABSOLUTE COUNT (BEAKER) (test 13.90 K/ L 1.56-6.13 zunj=211) LYMPHOCYTES ABSOLUTE COUNT (BEAKER) (test 1.38 K/ L 1.18-3.74 dgrq=549) MONOCYTES ABSOLUTE COUNT (BEAKER) (test 1.69 K/ L 0.24-0.36 urlp=279) EOSINOPHILS ABSOLUTE COUNT (BEAKER) (test 0.00 K/ L 0.04-0.36 mstt=225) BASOPHILS ABSOLUTE COUNT (BEAKER) (test 0.02 K/ L 0.01-0.08 jtkt=513) IMMATURE GRANULOCYTES-RELATIVE PERCENT (BEAKER) 2 % 0-1 (test wadt=3536) BASIC METABOLIC [id number] 09:02:00 Test Item Value Reference Range Comments SODIUM (BEAKER) (test 139 meq/L 136-145 fhpc=578) POTASSIUM (BEAKER) (test 5.4 meq/L 3.5-5.1 rnjm=332) CHLORIDE (BEAKER) (test 114 meq/L 98-107 zwgn=677) CO2 (BEAKER) (test 16 meq/L 22-29 ahyp=632) BLOOD UREA NITROGEN 33 mg/dL 7-21 (BEAKER) (test dupp=070) CREATININE (BEAKER) (test 1.91 mg/dL 0.57-1.25 gaws=033) GLUCOSE RANDOM (BEAKER) 177 mg/dL 70-105 (test drwt=112) CALCIUM (BEAKER) (test 8.5 mg/dL 8.4-10.2 wtwv=424) EGFR (BEAKER) (test 27 mL/min/1.73 sq m ESTIMATED GFR IS NOT xdew=7150) ACCURATE CREATININE CLEARANCE IN PREDICTING GLOMERULAR FILTRATION RATE. ESTIMATED GFR IS NOT APPLICABLE FOR DIALYSIS PATIENTS. [id number] 08:32:00 Test Item Value Reference Range Comments PARTIAL THROMBOPLASTIN TIME (BEAKER) (test 27.6 seconds 22.5-36.0 uphv=924) [id number] 08:32:00 Test Item Value Reference Range Comments FIBRINOGEN LEVEL (BEAKER) (test udgq=312) 282 mg/dl 225-434 PROTHROMBIN [id number] 08:31:00 Test Item Value Reference Range Comments PROTIME (BEAKER) (test xxgq=941) 14.7 seconds 11.7-14.7 INR (BEAKER) (test fsth=976) 1.2 <=5.9 RECOMMENDED COUMADIN/WARFARIN INR THERAPY RANGESSTANDARD DOSE: 2.0 - 3.0 Includes: PROPHYLAXIS forvenous thrombosis, systemic embolization; TREATMENT for venous thrombosis and/or pulmonary embolus.HIGH RISK: Target INR is 2.5-3.5 for patients with mechanical heart valves.[id number] 08:30:00 Test Item Value Reference Range Comments PHOSPHORUS (BEAKER) (test ndie=786) 4.6 mg/dL 2.3-4.7 [id number] 08:30:00 Test Item Value Reference Range Comments MAGNESIUM (BEAKER) (test icae=100) 1.7 mg/dL 1.6-2.6 BLOOD GAS, [id number] 08:25:00 Test Item Value Reference Range Comments PH ARTERIAL (BEAKER) (test fcnc=406) 7.19 7.35-7.45 PCO2 ARTERIAL (BEAKER) (test zaym=473) 56 mmHg 35-45 PO2 ARTERIAL (BEAKER) (test bmrw=556) 63 mmHg 80-90 O2 SATURATION ARTERIAL (BEAKER) (test bngu=999) 85.9 % 96.0-97.0 HCO3 ARTERIAL (BEAKER) (test sttu=661) 21 mmol/L 21-29 BASE EXCESS ARTERIAL (BEAKER) (test rxed=222) -7.2 mmol/L -2.0-3.0 PATIENT TEMPERATURE (BEAKER) (test tycx=1194) 37.2 C FIO2 (BEAKER) (test yvmw=0784) 70.0 % GLUCOSE-STAT [id number] 08:22:00 Test Item Value Reference Range Comments GLUCOSE RANDOM (BEAKER) (test zyjj=675) 176 mg/dL 70-110 HGB/HCT (H&H) - STAT [id number] 08:22:00 Test Item Value Reference Range Comments HEMOGLOBIN (BEAKER) (test ader=064) 9.7 g/dL 12.0-15.0 HEMATOCRIT (BEAKER) (test glxb=318) 29.0 % 36.0-45.0 CALCIUM, [id number] 08:22:00 Test Item Value Reference Range Comments CALCIUM IONIZED (BEAKER) (test rqba=695) 1.24 mmol/L 1.12-1.27 PH, BLOOD (BEAKER) (test llnd=6859) 7.19 POTASSIUM-STAT [id number] 08:21:00 Test Item Value Reference Range Comments POTASSIUM (BEAKER) (test ofmt=578) 5.2 meq/L 3.6-5.5 RAD, CHEST, 1 VIEW, NON [id number] 07:28:00Reason for exam:->s/p TEVAR with linesShould this [...] [place] Verified Date/Time: 07/13/2017 07:28:03 Reading Location: [address] Transitional Reading Room POCT- GLUCOSE [id number] 06:19:00 Test Item Value Reference Range Comments POC-GLUCOSE METER (BEAKER) 111 mg/dL 70-110 TESTED AT [address] (test mdtv=3796) [facility] [address] BLOOD GAS, [id number] 04:09:00 Test Item Value Reference Range Comments PH ARTERIAL (BEAKER) (test vshz=806) 7.20 7.35-7.45 PCO2 ARTERIAL (BEAKER) (test zpif=679) 54 mmHg 35-45 PO2 ARTERIAL (BEAKER) (test wxms=872) 76 mmHg 80-90 O2 SATURATION ARTERIAL (BEAKER) (test rlvh=223) 92.2 % 96.0-97.0 HCO3 ARTERIAL (BEAKER) (test vpah=225) 21 mmol/L 21-29 BASE EXCESS ARTERIAL (BEAKER) (test yyhk=500) -7.3 mmol/L -2.0-3.0 PATIENT TEMPERATURE (BEAKER) (test ihkt=3935) 36.8 C FIO2 (BEAKER) (test ueyj=5224) 60.0 % Daily ABG with morning labs while patient is intubated.POCT-GLUCOSE [id number] 04:03:00 Test Item Value Reference Range Comments POC-GLUCOSE METER (BEAKER) 133 mg/dL 70-110 TESTED AT [address] (test vuef=2657) [facility] [address] POCT-GLUCOSE [id number] 04:03:00 Test Item Value Reference Range Comments POC-GLUCOSE METER (BEAKER) 160 mg/dL 70-110 TESTED AT [address] (test vlyt=9160) [facility] [address] POCT-GLUCOSE [id number] 21:12:00 Test Item Value Reference Range Comments POC-GLUCOSE METER (BEAKER) 211 mg/dL 70-110 TESTED AT [address] (test vyqy=6885) [facility] [address] POCT-GLUCOSE [id number] 21:12:00 Test Item Value Reference Range Comments POC-GLUCOSE METER (BEAKER) 247 mg/dL 70-110 TESTED AT [address] (test equx=9417) [facility] [address] GLUCOSE-STAT [id number] 18:39:00 Test Item Value Reference Range Comments GLUCOSE RANDOM (BEAKER) (test wwxa=063) 194 mg/dL 70-110 HGB/HCT (H&H) - STAT [id number] 18:39:00 Test Item Value Reference Range Comments HEMOGLOBIN (BEAKER) (test oulu=753) 10.0 g/dL 12.0-15.0 HEMATOCRIT (BEAKER) (test ceot=325) 29.0 % 36.0-45.0 PLATELET AGGREGATION: FUNCTION [id number] 17:10:00 Test Item Value Reference Range Comments WEAK ADP RESULT(BEAKER) (test 70 % 60-91 brfs=2823) PLATELET FUNCTION SCREEN 60-100% indicates normal INTERP (BEAKER) (test platelet function lgdd=2676) [id number] (BEAKER) Romel Hamilton MD (electronic (test njip=7411) signature) PLATELET COUNT AGG (BEAKER) 231 K/CU MM 150-450 (test kdjr=2479) BLOOD GAS, [id number] 14:20:00 Test Item Value Reference Range Comments PH ARTERIAL (BEAKER) (test odab=612) 7.25 7.35-7.45 PCO2 ARTERIAL (BEAKER) (test tylh=554) 55 mmHg 35-45 PO2 ARTERIAL (BEAKER) (test yupk=557) 108 mmHg 80-90 O2 SATURATION ARTERIAL (BEAKER) (test rrfa=209) 97.2 % 96.0-97.0 HCO3 ARTERIAL (BEAKER) (test wiyl=173) 24 mmol/L 21-29 BASE EXCESS ARTERIAL (BEAKER) (test udgy=146) -4.1 mmol/L -2.0-3.0 PATIENT TEMPERATURE (BEAKER) (test frxr=8517) 36.3 C FIO2 (BEAKER) (test mcmx=4194) 60.0 % GLUCOSE-STAT [id number] 14:20:00 Test Item Value Reference Range Comments GLUCOSE RANDOM (BEAKER) (test dyoe=525) 257 mg/dL 70-110 HGB/HCT (H&H) - STAT [id number] 14:20:00 Test Item Value Reference Range Comments HEMOGLOBIN (BEAKER) (test vitn=395) 9.5 g/dL 12.0-15.0 HEMATOCRIT (BEAKER) (test dulb=824) 28.0 % 36.0-45.0 SODIUM NA-STAT [id number] 14:19:00 Test Item Value Reference Range Comments SODIUM (BEAKER) (test ecrz=302) 135 meq/L 135-148 POTASSIUM-STAT [id number] 14:19:00 Test Item Value Reference Range Comments POTASSIUM (BEAKER) (test xfav=727) 4.7 meq/L 3.6-5.5 [id number] 12:29:00 Test Item Value Reference Range Comments PHOSPHORUS (BEAKER) (test pguz=829) 2.5 mg/dL 2.3-4.7 [id number] 12:29:00 Test Item Value Reference Range Comments MAGNESIUM (BEAKER) (test rzwr=987) 1.9 mg/dL 1.6-2.6 BASIC METABOLIC [id number] 12:29:00 Test Item Value Reference Range Comments SODIUM (BEAKER) (test 140 meq/L 136-145 xvvj=691) POTASSIUM (BEAKER) (test 4.6 meq/L 3.5-5.1 chun=639) CHLORIDE (BEAKER) (test 110 meq/L 98-107 fskz=131) CO2 (BEAKER) (test 22 meq/L 22-29 kudp=219) BLOOD UREA NITROGEN 26 mg/dL 7-21 (BEAKER) (test wybc=497) CREATININE (BEAKER) (test 1.22 mg/dL 0.57-1.25 czjo=446) GLUCOSE RANDOM (BEAKER) 207 mg/dL 70-105 (test mbsb=051) CALCIUM (BEAKER) (test 9.1 mg/dL 8.4-10.2 osan=794) EGFR (BEAKER) (test 45 mL/min/1.73 sq m ESTIMATED GFR IS NOT asaw=7794) ACCURATE CREATININE CLEARANCE IN PREDICTING GLOMERULAR FILTRATION RATE. ESTIMATED GFR IS NOT APPLICABLE FOR DIALYSIS PATIENTS. [id number] 11:59:00 Test Item Value Reference Range Comments PARTIAL THROMBOPLASTIN TIME (BEAKER) (test 28.0 seconds 22.5-36.0 acdc=181) PROTHROMBIN [id number] 11:58:00 Test Item Value Reference Range Comments PROTIME (BEAKER) (test uceb=000) 14.9 seconds 11.7-14.7 INR (BEAKER) (test ewdg=447) 1.2 <=5.9 RECOMMENDED COUMADIN/WARFARIN INR THERAPY RANGESSTANDARD DOSE: 2.0 - 3.0 Includes: PROPHYLAXIS forvenous thrombosis, systemic embolization; TREATMENT for venous thrombosis and/or pulmonary embolus.HIGH RISK: Target INR is 2.5-3.5 for patients with mechanical heart valves.CBC W/PLT COUNT & AUTO [id number] 11:42:00 Test Item Value Reference Range Comments WHITE BLOOD CELL COUNT (BEAKER) (test giww=887) 8.3 K/ L 3.5-10.5 RED BLOOD CELL COUNT (BEAKER) (test udyj=467) 3.51 M/ L 3.93-5.22 HEMOGLOBIN (BEAKER) (test vrpz=715) 10.4 GM/DL 11.2-15.7 HEMATOCRIT (BEAKER) (test dycg=317) 34.1 % 34.1-44.9 MEAN CORPUSCULAR VOLUME (BEAKER) (test vaim=827) 97.2 fL 79.4-94.8 MEAN CORPUSCULAR HEMOGLOBIN (BEAKER) (test 29.6 pg 25.6-32.2 izzo=355) MEAN CORPUSCULAR HEMOGLOBIN CONC (BEAKER) (test 30.5 GM/DL 32.2-35.5 kedg=715) RED CELL DISTRIBUTION WIDTH (BEAKER) (test 14.8 % 11.7-14.4 cmyh=707) PLATELET COUNT (BEAKER) (test alok=948) 232 K/CU MM 150-450 MEAN PLATELET VOLUME (BEAKER) (test lsns=762) 11.4 fL 9.4-12.3 NUCLEATED RED BLOOD CELLS (BEAKER) (test 0 /100 WBC 0-0 jdqn=318) NEUTROPHILS RELATIVE PERCENT (BEAKER) (test 75 % ihzx=265) LYMPHOCYTES RELATIVE PERCENT (BEAKER) (test 16 % pupw=537) MONOCYTES RELATIVE PERCENT (BEAKER) (test 6 % tuwk=788) EOSINOPHILS RELATIVE PERCENT (BEAKER) (test 1 % stmt=618) BASOPHILS RELATIVE PERCENT (BEAKER) (test 0 % iuci=535) NEUTROPHILS ABSOLUTE COUNT (BEAKER) (test 6.26 K/ L 1.56-6.13 usny=479) LYMPHOCYTES ABSOLUTE COUNT (BEAKER) (test 1.37 K/ L 1.18-3.74 julu=215) MONOCYTES ABSOLUTE COUNT (BEAKER) (test 0.47 K/ L 0.24-0.36 tidr=001) EOSINOPHILS ABSOLUTE COUNT (BEAKER) (test 0.09 K/ L 0.04-0.36 kzwz=432) BASOPHILS ABSOLUTE COUNT (BEAKER) (test 0.02 K/ L 0.01-0.08 apvk=153) IMMATURE GRANULOCYTES-RELATIVE PERCENT (BEAKER) 1 % 0-1 (test jtgd=7053) RAD, CHEST, 1 VIEW, NON [id number] 11:40:00Reason for exam:->Post- opShould this be performed [...] [place] Verified Date/Time: 07/12/2017 11:40:25 Reading Location: [facility] Radiology Reading Room CALCIUM, [id number] 11:35:00 Test Item Value Reference Range Comments CALCIUM IONIZED (BEAKER) (test gdcd=339) 1.28 mmol/L 1.12-1.27 PH, BLOOD (BEAKER) (test awoj=7216) 7.30 BLOOD GAS, [id number] 11:34:00 Test Item Value Reference Range Comments PH ARTERIAL (BEAKER) (test kfkg=424) 7.35 7.35-7.45 PCO2 ARTERIAL (BEAKER) (test bxzg=768) 48 mmHg 35-45 PO2 ARTERIAL (BEAKER) (test mbqa=419) 54 mmHg 80-90 O2 SATURATION ARTERIAL (BEAKER) (test oelw=762) 91.1 % 96.0-97.0 HCO3 ARTERIAL (BEAKER) (test xfuq=657) 27 mmol/L 21-29 BASE EXCESS ARTERIAL (BEAKER) (test qqbt=626) -0.5 mmol/L -2.0-3.0 PATIENT TEMPERATURE (BEAKER) (test hppp=4701) 33.9 C FIO2 (BEAKER) (test zawh=1136) 60.0 % GLUCOSE-STAT [id number] 11:34:00 Test Item Value Reference Range Comments GLUCOSE RANDOM (BEAKER) (test fhcb=839) 203 mg/dL 70-110 HGB/HCT (H&H) - STAT [id number] 11:34:00 Test Item Value Reference Range Comments HEMOGLOBIN (BEAKER) (test cttd=874) 11.1 g/dL 12.0-15.0 HEMATOCRIT (BEAKER) (test lbwd=056) 33.0 % 36.0-45.0 SODIUM NA-STAT [id number] 11:33:00 Test Item Value Reference Range Comments SODIUM (BEAKER) (test ztqm=113) 137 meq/L 135-148 POTASSIUM-STAT [id number] 11:33:00 Test Item Value Reference Range Comments POTASSIUM (BEAKER) (test akeh=036) 4.4 meq/L 3.6-5.5 [id number] 10:07:00 Test Item Value Reference Range Comments ACTIVATED CLOTTING TIME [address] [facility] [address] (BEAKER) (test qwax=963) [place] [address] [id number] 10:07:00 Test Item Value Reference Range Comments ACTIVATED CLOTTING TIME 345 sec TESTED AT [place] [address] [address] (BEAKER) (test qpzq=877) [place] [address] [id number] 10:06:00 Test Item Value Reference Range Comments ACTIVATED CLOTTING TIME 230 sec TESTED AT [place] [address] [address] (BEAKER) (test tccc=540) [place] [address] GLUCOSE-STAT [id number] 08:53:00 Test Item Value Reference Range Comments GLUCOSE RANDOM (BEAKER) (test tpho=787) 99 mg/dL 70-110 SODIUM NA-STAT [id number] 08:53:00 Test Item Value Reference Range Comments SODIUM (BEAKER) (test jnim=884) 140 meq/L 135-148 POTASSIUM-STAT [id number] 08:53:00 Test Item Value Reference Range Comments POTASSIUM (BEAKER) (test bkws=224) 4.7 meq/L 3.6-5.5 HGB/HCT (H&H) - STAT [id number] 08:53:00 Test Item Value Reference Range Comments HEMOGLOBIN (BEAKER) (test eqen=812) 12.1 g/dL 12.0-15.0 HEMATOCRIT (BEAKER) (test vlda=314) 36.0 % 36.0-45.0 BLOOD GAS, [id number] 08:53:00 Test Item Value Reference Range Comments PH ARTERIAL (BEAKER) (test xbxn=789) 7.36 7.35-7.45 PCO2 ARTERIAL (BEAKER) (test zlsg=137) 51 mmHg 35-45 PO2 ARTERIAL (BEAKER) (test ekit=113) 110 mmHg 80-90 O2 SATURATION ARTERIAL (BEAKER) (test bsqk=076) 98.0 % 96.0-97.0 HCO3 ARTERIAL (BEAKER) (test grfa=672) 29 mmol/L 21-29 BASE EXCESS ARTERIAL (BEAKER) (test czqr=493) 1.9 mmol/L -2.0-3.0 PATIENT TEMPERATURE (BEAKER) (test kowz=9155) 35.5 C FIO2 (BEAKER) (test ihgu=6630) 70.0 % CALCIUM, [id number] 08:53:00 Test Item Value Reference Range Comments CALCIUM IONIZED (BEAKER) (test zjzo=341) 1.20 mmol/L 1.12-1.27 PH, BLOOD (BEAKER) (test ryhq=7054) 7.34 [id number] 05:20:00 Test Item Value Reference Range Comments PHOSPHORUS (BEAKER) (test kkkr=967) 2.7 mg/dL 2.3-4.7 [id number] 05:20:00 Test Item Value Reference Range Comments MAGNESIUM (BEAKER) (test gnzc=654) 2.2 mg/dL 1.6-2.6 BASIC METABOLIC [id number] 05:20:00 Test Item Value Reference Range Comments SODIUM (BEAKER) (test 140 meq/L 136-145 xraa=474) POTASSIUM (BEAKER) (test 4.9 meq/L 3.5-5.1 zcgy=540) CHLORIDE (BEAKER) (test 103 meq/L 98-107 qgax=264) CO2 (BEAKER) (test 29 meq/L 22-29 bmfr=516) BLOOD UREA NITROGEN 25 mg/dL 7-21 (BEAKER) (test lplt=999) CREATININE (BEAKER) (test 1.32 mg/dL 0.57-1.25 jmpn=504) GLUCOSE RANDOM (BEAKER) 155 mg/dL 70-105 (test ycnc=469) CALCIUM (BEAKER) (test 9.7 mg/dL 8.4-10.2 tzmw=612) EGFR (BEAKER) (test 41 mL/min/1.73 sq m ESTIMATED GFR IS NOT qylt=9570) ACCURATE CREATININE CLEARANCE IN PREDICTING GLOMERULAR FILTRATION RATE. ESTIMATED GFR IS NOT APPLICABLE FOR DIALYSIS PATIENTS. CALCIUM, [id number] 04:45:00 Test Item Value Reference Range Comments CALCIUM IONIZED (BEAKER) (test ecwf=091) 1.24 mmol/L 1.12-1.27 PH, BLOOD (BEAKER) (test zknj=2890) 7.27 PT/[id number] 04:42:00 Test Item Value Reference Range Comments PROTIME (BEAKER) (test dqix=091) 13.0 seconds 11.7-14.7 INR (BEAKER) (test dabu=802) 1.0 <=5.9 PARTIAL THROMBOPLASTIN TIME (BEAKER) (test 29.2 seconds 22.5-36.0 jbjg=086) RECOMMENDED COUMADIN/WARFARIN INR THERAPY RANGESSTANDARD DOSE: 2.0 - 3.0 Includes: PROPHYLAXIS forvenous thrombosis, systemic embolization; TREATMENT for venous thrombosis and/or pulmonary embolus.HIGH RISK: Target INR is 2.5-3.5 for patients with mechanical heart valves.PROTHROMBIN TIME/[id number] 04:41: 00 Test Item Value Reference Range Comments PROTIME (BEAKER) (test pnjc=063) 13.0 seconds 11.7-14.7 INR (BEAKER) (test aezu=916) 1.0 <=5.9 RECOMMENDED COUMADIN/WARFARIN INR THERAPY RANGESSTANDARD DOSE: 2.0 - 3.0 Includes: PROPHYLAXIS forvenous thrombosis, systemic embolization; TREATMENT for venous thrombosis and/or pulmonary embolus.HIGH RISK: Target INR is 2.5-3.5 for patients with mechanical heart valves.RAD, CHEST, 1 VIEW, NON [id number] 04:20:00Reason for exam:->pneumonia, copdShould this be performed at the bedside?->YesFINAL REPORT RAD, CHEST, 1 VIEW, NON DEPT INDICATION: pneumonia, copd COMPARISON: Prior day's exam FINDINGS: Portable frontal view of the chest. IMPRESSION: Support Lines: None. Lungs and pleura: No focal airspace disease, effusion or pneumothorax.Heart and mediastinum: Stable contours.Additional findings: None. Signed: JR Guzman Robert MDReport Verified Date/Time: 07/12/2017 04:20:18 Reading Location: [address] Reading Room [facility] (HEMOGRAM ONLY)2017-07-12 04:14:00 Test Item Value Reference Range Comments WHITE BLOOD CELL COUNT (BEAKER) (test isdd=447) 5.5 K/ L 3.5-10.5 RED BLOOD CELL COUNT (BEAKER) (test oqqk=478) 4.28 M/ L 3.93-5.22 HEMOGLOBIN (BEAKER) (test nxgg=688) 12.6 GM/DL 11.2-15.7 HEMATOCRIT (BEAKER) (test rsgg=699) 41.2 % 34.1-44.9 MEAN CORPUSCULAR VOLUME (BEAKER) (test zsyv=774) 96.3 fL 79.4-94.8 MEAN CORPUSCULAR HEMOGLOBIN (BEAKER) (test 29.4 pg 25.6-32.2 nvli=862) MEAN CORPUSCULAR HEMOGLOBIN CONC (BEAKER) (test 30.6 GM/DL 32.2-35.5 jrcx=426) RED CELL DISTRIBUTION WIDTH (BEAKER) (test 14.6 % 11.7-14.4 inbq=698) PLATELET COUNT (BEAKER) (test nayk=540) 210 K/CU MM 150-450 MEAN PLATELET VOLUME (BEAKER) (test ernk=323) 11.2 fL 9.4-12.3 NUCLEATED RED BLOOD CELLS (BEAKER) (test 0 /100 WBC 0-0 pwrt=711) POCT-GLUCOSE [id number] 22:43:00 Test Item Value Reference Range Comments POC-GLUCOSE METER (BEAKER) 125 mg/dL 70-110 TESTED AT [address] (test hyxe=7765) [place] [id number] POCT-GLUCOSE [id number] 18:20:00 Test Item Value Reference Range Comments POC-GLUCOSE METER (BEAKER) 118 mg/dL 70-110 TESTED AT [address] (test fywl=0091) [place] [id number] POCT-GLUCOSE [id number] 13:23:00 Test Item Value Reference Range Comments POC-GLUCOSE METER (BEAKER) 143 mg/dL 70-110 TESTED AT [address] (test airs=2301) [place] [id number] PLATELET AGGREGATION: FUNCTION [id number] 09:18:00 Test Item Value Reference Range Comments WEAK ADP RESULT(BEAKER) (test 52 % 60-91 deix=8653) PLATELET FUNCTION SCREEN 50-59% indicates mild platelet INTERP (BEAKER) (test dysfunction ihuz=4336) [id number] Romel Hamilton MD (electronic (BEAKER) (test xmxu=6902) signature) PLATELET COUNT AGG (BEAKER) 197 K/CU MM 150-450 (test fznf=8124) RAD, CHEST, 1 VIEW, NON [id number] 07:41:00Reason for exam:->pneumonia, copdShould this be performed at the bedside?->YesFINAL REPORT CLINICAL HISTORY: pneumonia, copd TECHNIQUE: 1 view of the chest. COMPARISON: 07/10/2017 IMPRESSION: Prominent bilateral interstitial lung opacities are unchanged. There is no increasing pleural fluid. The cardiomediastinal silhouette is magnified by technique. Signed: Trell Guillen Verified Date/Time: 07/11/2017 07:41:01 Reading Location: [facility] Radiology Reading Room [id number] 05:55:00 Test Item Value Reference Range Comments PHOSPHORUS (BEAKER) (test xtie=924) 2.8 mg/dL 2.3-4.7 [id number] 05:55:00 Test Item Value Reference Range Comments MAGNESIUM (BEAKER) (test sqvz=531) 2.1 mg/dL 1.6-2.6 BASIC METABOLIC [id number] 05:55:00 Test Item Value Reference Range Comments SODIUM (BEAKER) (test 141 meq/L 136-145 ztwe=798) POTASSIUM (BEAKER) (test 4.3 meq/L 3.5-5.1 jjcm=905) CHLORIDE (BEAKER) (test 105 meq/L 98-107 nkth=807) CO2 (BEAKER) (test 28 meq/L 22-29 igrc=933) BLOOD UREA NITROGEN 27 mg/dL 7-21 (BEAKER) (test dwjd=525) CREATININE (BEAKER) (test 1.37 mg/dL 0.57-1.25 dzlj=018) GLUCOSE RANDOM (BEAKER) 150 mg/dL 70-105 (test nuyb=120) CALCIUM (BEAKER) (test 9.4 mg/dL 8.4-10.2 ubuj=828) EGFR (BEAKER) (test 39 mL/min/1.73 sq m ESTIMATED GFR IS NOT mfxf=6989) ACCURATE CREATININE CLEARANCE IN PREDICTING GLOMERULAR FILTRATION RATE. ESTIMATED GFR IS NOT APPLICABLE FOR DIALYSIS PATIENTS. PT/[id number] 05:37:00 Test Item Value Reference Range Comments PROTIME (BEAKER) (test ebkt=259) 15.1 seconds 11.7-14.7 INR (BEAKER) (test utgj=953) 1.2 <=5.9 PARTIAL THROMBOPLASTIN TIME (BEAKER) (test 31.2 seconds 22.5-36.0 xvhy=957) RECOMMENDED COUMADIN/WARFARIN INR THERAPY RANGESSTANDARD DOSE: 2.0 - 3.0 Includes: PROPHYLAXIS forvenous thrombosis, systemic embolization; TREATMENT for venous thrombosis and/or pulmonary embolus.HIGH RISK: Target INR is 2.5-3.5 for patients with mechanical heart valves.PROTHROMBIN TIME/[id number] 05:36: 00 Test Item Value Reference Range Comments PROTIME (BEAKER) (test gnga=915) 15.1 seconds 11.7-14.7 INR (BEAKER) (test obcs=757) 1.2 <=5.9 RECOMMENDED COUMADIN/WARFARIN INR THERAPY RANGESSTANDARD DOSE: 2.0 - 3.0 Includes: PROPHYLAXIS forvenous thrombosis, systemic embolization; TREATMENT for venous thrombosis and/or pulmonary embolus.HIGH RISK: Target INR is 2.5-3.5 for patients with mechanical heart valves.CBC (HEMOGRAM ONLY)2017-07-11 05:35:00 Test Item Value Reference Range Comments WHITE BLOOD CELL COUNT (BEAKER) (test bddg=813) 5.1 K/ L 3.5-10.5 RED BLOOD CELL COUNT (BEAKER) (test pwzf=666) 4.17 M/ L 3.93-5.22 HEMOGLOBIN (BEAKER) (test oqeq=624) 12.2 GM/DL 11.2-15.7 HEMATOCRIT (BEAKER) (test mkns=322) 40.5 % 34.1-44.9 MEAN CORPUSCULAR VOLUME (BEAKER) (test tveo=629) 97.1 fL 79.4-94.8 MEAN CORPUSCULAR HEMOGLOBIN (BEAKER) (test 29.3 pg 25.6-32.2 czgo=550) MEAN CORPUSCULAR HEMOGLOBIN CONC (BEAKER) (test 30.1 GM/DL 32.2-35.5 ziky=289) RED CELL DISTRIBUTION WIDTH (BEAKER) (test 14.7 % 11.7-14.4 dune=166) PLATELET COUNT (BEAKER) (test gzzj=629) 185 K/CU MM 150-450 MEAN PLATELET VOLUME (BEAKER) (test segw=740) 11.4 fL 9.4-12.3 NUCLEATED RED BLOOD CELLS (BEAKER) (test 0 /100 WBC 0-0 taqz=754) CALCIUM, [id number] 05:35:00 Test Item Value Reference Range Comments CALCIUM IONIZED (BEAKER) (test mavp=258) 1.29 mmol/L 1.12-1.27 PH, BLOOD (BEAKER) (test ugpx=5201) 7.29 POCT-GLUCOSE [id number] 01:32:00 Test Item Value Reference Range Comments POC-GLUCOSE METER (BEAKER) 166 mg/dL 70-110 TESTED AT [address] (test jdcl=5002) [place] [address] POCT-GLUCOSE [id number] 22:19:00 Test Item Value Reference Range Comments POC-GLUCOSE METER (BEAKER) 138 mg/dL 70-110 TESTED AT [address] (test wmup=6953) [place] [address] POCT-GLUCOSE [id number] 18:47:00 Test Item Value Reference Range Comments POC-GLUCOSE METER (BEAKER) 93 mg/dL 70-110 TESTED AT [address] (test lllo=3079) [place] [address] POCT-GLUCOSE [id number] 18:39:00 Test Item Value Reference Range Comments POC-GLUCOSE METER (BEAKER) 95 mg/dL 70-110 TESTED AT [address] (test behg=1369) [place] [id number] CTA, CHEST, ABDOMEN - PELVIS, FOR [id number] 17:03:00Reason for exam:- >aortic ulcersAddendum BeginsREPORT STATUS:A Addendum : I agree with the previously described non vascular findings. Signed: García [place] MDReport Verified Date/Time: 07/10/2017 17:03:39 Reading Location: [place] [id number] Angio Body Reading RoomAddendum EndsFINAL REPORT CT [...] example at the distal descending thoracic aorta opzuh991, the thickness of the atheroma is approximately [...] that is widely patent and the inner wgiv-ae-oqnr diameteris at least 7 to 8 mm. [...] An addendum will be dictated by the Taker Down Radiologist regarding the nonvascular findings. Signed: Willis [place] Verified Date/Time: 07/10/2017 11:12:02 Reading Location: [place] [id number] MRI URINALYSIS W/ REFLEX URINE [id number] 16:27:00 Test Item Value Reference Range Comments COLOR (BEAKER) (test ylpg=720) Yellow CLARITY (BEAKER) (test sowx=461) Clear SPECIFIC GRAVITY UA (BEAKER) (test waca=147) 1.049 1.001-1.035 PH UA (BEAKER) (test mbnq=110) 5.5 5.0-8.0 PROTEIN UA (BEAKER) (test ercs=182) 10 mg/dL Negative GLUCOSE UA (BEAKER) (test dpna=773) Negative Negative KETONES UA (BEAKER) (test uule=864) Negative Negative BILIRUBIN UA (BEAKER) (test vkur=990) Negative Negative BLOOD UA (BEAKER) (test rcqc=840) Negative Negative NITRITE UA (BEAKER) (test ifnv=010) Negative Negative LEUKOCYTE ESTERASE UA (BEAKER) (test gkvy=141) Negative Negative UROBILINOGEN UA (BEAKER) (test pdaa=177) 2.0 mg/dL 0.2-1.0 RBC UA (BEAKER) (test dhbv=836) < /HPF WBC UA (BEAKER) (test pwrx=135) < /HPF SQUAMOUS EPITHELIAL (BEAKER) (test fcuy=457) 1 /HPF SOURCE(BEAKER) (test gpce=1700) [id number] 13:13:00 Test Item Value Reference Range Comments COL/EPI CLOSURE TIME (BEAKER) (test wxvf=5328) > Seconds 78-191 COL/ADP CLOSURE TIME (BEAKER) (test fdgx=5623) 76 Seconds 43-122 PLATELET COUNT AGG (BEAKER) (test rwdj=8089) 188 K/CU MM 150-450 POCT-GLUCOSE [id number] 12:41:00 Test Item Value Reference Range Comments POC-GLUCOSE METER (BEAKER) 70 mg/dL 70-110 TESTED AT [address] (test kwdw=8542) [place] [id number] POCT-GLUCOSE [id number] 10:45:00 Test Item Value Reference Range Comments POC-GLUCOSE METER (BEAKER) 87 mg/dL 70-110 TESTED AT [address] (test wimk=6789) [place] [id number] TSH/FREE T4 IF [id number] 09:07:00 Test Item Value Reference Range Comments THYROID STIMULATING HORMONE (BEAKER) (test 1.07 uIU/mL 0.35-4.94 ekge=115) B-TYPE NATRIURETIC FACTOR (BNP)2017-07-10 09:03:00 Test Item Value Reference Range Comments B-TYPE NATRIURETIC PEPTIDE (BEAKER) (test mqdz=769) 86 pg/mL 0-100 B-TYPE NATRIURETIC FACTOR (BNP)2017-07-10 05:25:00 Test Item Value Reference Range Comments B-TYPE NATRIURETIC PEPTIDE (BEAKER) (test yprl=709) 76 pg/mL 0-100 [id number] 02:31:00 Test Item Value Reference Range Comments PARTIAL THROMBOPLASTIN TIME (BEAKER) (test 33.4 seconds 22.5-36.0 hmbp=321) [id number] 02:31:00 Test Item Value Reference Range Comments PHOSPHORUS (BEAKER) (test pzsu=364) 4.2 mg/dL 2.3-4.7 [id number] 02:31:00 Test Item Value Reference Range Comments MAGNESIUM (BEAKER) (test uyac=286) 1.9 mg/dL 1.6-2.6 BASIC METABOLIC [id number] 02:31:00 Test Item Value Reference Range Comments SODIUM (BEAKER) (test 143 meq/L 136-145 lspb=772) POTASSIUM (BEAKER) (test 4.2 meq/L 3.5-5.1 jvau=039) CHLORIDE (BEAKER) (test 105 meq/L 98-107 ncrh=213) CO2 (BEAKER) (test 29 meq/L 22-29 pnyb=127) BLOOD UREA NITROGEN 23 mg/dL 7-21 (BEAKER) (test myvz=975) CREATININE (BEAKER) (test 1.47 mg/dL 0.57-1.25 fbtc=572) GLUCOSE RANDOM (BEAKER) 89 mg/dL 70-105 (test qqyr=660) CALCIUM (BEAKER) (test 9.0 mg/dL 8.4-10.2 qemp=047) EGFR (BEAKER) (test 36 mL/min/1.73 sq m ESTIMATED GFR IS NOT qdah=0291) ACCURATE CREATININE CLEARANCE IN PREDICTING GLOMERULAR FILTRATION RATE. ESTIMATED GFR IS NOT APPLICABLE FOR DIALYSIS PATIENTS. PROTHROMBIN TIME/[id number] 02:30:00 Test Item Value Reference Range Comments PROTIME (BEAKER) (test ikjg=164) 13.7 seconds 11.7-14.7 INR (BEAKER) (test gftx=961) 1.1 <=5.9 RECOMMENDED COUMADIN/WARFARIN INR THERAPY RANGESSTANDARD DOSE: 2.0 - 3.0 Includes: PROPHYLAXIS forvenous thrombosis, systemic embolization; TREATMENT for venous thrombosis and/or pulmonary embolus.HIGH RISK: Target INR is 2.5-3.5 for patients with mechanical heart valves.CBC W/PLT COUNT & AUTO [id number] 02:17:00 Test Item Value Reference Range Comments WHITE BLOOD CELL COUNT (BEAKER) (test ndof=408) 6.5 K/ L 3.5-10.5 RED BLOOD CELL COUNT (BEAKER) (test xwwa=778) 4.31 M/ L 3.93-5.22 HEMOGLOBIN (BEAKER) (test czon=408) 12.7 GM/DL 11.2-15.7 HEMATOCRIT (BEAKER) (test lupm=659) 41.7 % 34.1-44.9 MEAN CORPUSCULAR VOLUME (BEAKER) (test davc=955) 96.8 fL 79.4-94.8 MEAN CORPUSCULAR HEMOGLOBIN (BEAKER) (test 29.5 pg 25.6-32.2 znjr=850) MEAN CORPUSCULAR HEMOGLOBIN CONC (BEAKER) (test 30.5 GM/DL 32.2-35.5 iqbt=384) RED CELL DISTRIBUTION WIDTH (BEAKER) (test 14.6 % 11.7-14.4 eemq=571) PLATELET COUNT (BEAKER) (test ufte=834) 182 K/CU MM 150-450 MEAN PLATELET VOLUME (BEAKER) (test bpmk=626) 11.0 fL 9.4-12.3 NUCLEATED RED BLOOD CELLS (BEAKER) (test 0 /100 WBC 0-0 skui=942) NEUTROPHILS RELATIVE PERCENT (BEAKER) (test 73 % fmke=225) LYMPHOCYTES RELATIVE PERCENT (BEAKER) (test 16 % wclj=400) MONOCYTES RELATIVE PERCENT (BEAKER) (test 10 % xsej=939) EOSINOPHILS RELATIVE PERCENT (BEAKER) (test 1 % hapj=998) BASOPHILS RELATIVE PERCENT (BEAKER) (test 0 % lsse=643) NEUTROPHILS ABSOLUTE COUNT (BEAKER) (test 4.78 K/ L 1.56-6.13 ufno=237) LYMPHOCYTES ABSOLUTE COUNT (BEAKER) (test 1.02 K/ L 1.18-3.74 pyhh=204) MONOCYTES ABSOLUTE COUNT (BEAKER) (test 0.64 K/ L 0.24-0.36 ckhp=354) EOSINOPHILS ABSOLUTE COUNT (BEAKER) (test 0.05 K/ L 0.04-0.36 iyvm=470) BASOPHILS ABSOLUTE COUNT (BEAKER) (test 0.02 K/ L 0.01-0.08 fnro=439) IMMATURE GRANULOCYTES-RELATIVE PERCENT (BEAKER) 0 % 0-1 (test fnli=8731) RAD, CHEST, 1 VIEW, NON [id number] 01:59:00Reason for exam:->acute O2 desat, ?COPD, ?pneumoniaShould [...] MDReport Verified Date/Time: 07/10/2017 01:59:30 Reading Location[address]
--- NOTE | 2018-06-10 19:10 | EDPHYS ---
Physician Documentation [facility] Name: Kerry Castaneda Age: 62 yrs Sex: Female : 1955 Arrival Date: 06/10/2018 Time: 18:06 Bed 30 Private MD: Luis Eduardo Kendall R ED Physician Calos Pena HPI: 06/10 19:00 This 62 yrs old Female presents to ER via Ambulatory with complaints of jr8 Finger Injury. 19:00 Onset: The symptoms/episode began/occurred acutely, today. The patient has not jr8 experienced similar symptoms in the past. The patient has not recently seen a physician. Patient fell landing on right hand. Pain and deformity to 4th digit post fall . Historical: - Allergies: 18:18 ANTIHISTAMINES; la1 18:18 Morphine; la1 - PMHx: 18:18 Blood Stream Infection; Diabetes - IDDM; High Cholesterol; Hypertension; narcolepsy; la1 Seizures; THROAT CA; - Immunization history:: Adult Immunizations up to date. - Social history:: Smoking status: Patient/guardian denies using tobacco. - Ebola Screening: : No symptoms or risks identified at this time. ROS: 19:00 Eyes: Negative for injury, pain, redness, and discharge, ENT: Negative for injury, jr8 pain, and discharge, Neck: Negative for injury, pain, and swelling, Cardiovascular: Negative for chest pain, palpitations, and edema, Respiratory: Negative for shortness of breath, cough, wheezing, and pleuritic chest pain, Abdomen/GI: Negative for abdominal pain, nausea, vomiting, diarrhea, and constipation, Back: Negative for injury and pain, Skin: Negative for injury, rash, and discoloration, Neuro: Negative for headache, weakness, numbness, tingling, and seizure. 19:00 MS/extremity: Positive for decreased range of motion, deformity, pain, tenderness, of the 4th digit right hand. Exam: 19:00 Head/Face: Normocephalic, atraumatic. Eyes: Pupils equal round and reactive to light, jr8 extra-ocular motions intact. Lids and lashes normal. Conjunctiva and sclera are non-icteric and not injected. Cornea within normal limits. Periorbital areas with no swelling, redness, or edema. ENT: Nares patent. No nasal discharge, no septal abnormalities noted. Tympanic membranes are normal and external auditory canals are clear. Oropharynx with no redness, swelling, or masses, exudates, or evidence of obstruction, uvula midline. Mucous membranes moist. Neck: Trachea midline, no thyromegaly or masses palpated, and no cervical lymphadenopathy. Supple, full range of motion without nuchal rigidity, or vertebral point tenderness. No Meningismus. Chest/axilla: Normal chest wall appearance and motion. Nontender with no deformity. No lesions are appreciated. Cardiovascular: Regular rate and rhythm with a normal S1 and S2. No gallops, murmurs, or rubs. Normal PMI, no JVD. No pulse deficits. Respiratory: Lungs have equal breath sounds bilaterally, clear to auscultation and percussion. No rales, rhonchi or wheezes noted. No increased work of breathing, no retractions or nasal flaring. Abdomen/GI: Soft, non-tender, with normal bowel sounds. No distension or tympany. No guarding or rebound. No evidence of tenderness throughout. Back: No spinal tenderness. No costovertebral tenderness. Full range of motion. Skin: Warm, dry with normal turgor. Normal color with no rashes, no lesions, and no evidence of cellulitis. Neuro: Awake and alert, GCS 15, oriented to person, place, time, and situation. Cranial nerves II-XII grossly intact. Motor strength 5/5 in all extremities. Sensory grossly intact. Cerebellar exam normal. Normal gait. 19:00 Musculoskeletal/extremity: Extremities: grossly normal except: noted in the 4th digit right hand: decreased ROM, deformity, pain, ROM: limited active range of motion, limited passive range of motion, limited active range of motion due to pain, limited passive range of motion due to pain, Circulation is intact in all extremities. Sensation intact. Vital Signs: 18:18 BP 112 / 76; Pulse 77; Resp 16; Temp 97.8; Pulse Ox 98% on R/A; Weight 90.26 kg; Height la1 5 ft. 2 in. (157.48 cm); 18:18 Body Mass Index 36.40 (90.26 kg, 157.48 cm) la1 MDM: 18:[address] [facility] 19:08 Data reviewed: vital signs, nurses notes, radiologic studies, plain films, and as a jr8 result, I will discharge patient. Data interpreted: Pulse oximetry: on room air is 98 %. Interpretation: normal. Counseling: I had a detailed discussion with the patient and/or guardian regarding: the historical points, exam findings, and any diagnostic results supporting the discharge/admit diagnosis, radiology results, the need for outpatient follow up, a hand specialist, to return to the emergency department if symptoms worsen or persist or if there are any questions or concerns that arise at home. ED course: While being imaged finger spontaneously reduced itself. Imaging post reduction does not reveal fracture. Normal alignment now . 06/10 18:14 Order name: XRAY Hand RIGHT 3 View jr8 Administered Medications: No medications were administered Disposition: 06/11 09:28 Co-signature as Attending Physician, Calos Pena MD I agree with the assessment and rhona plan of care. Disposition: 06/10/18 19:10 Discharged to Home. Impression: Dislocation of proximal interphalangeal joint of right ring finger. - Condition is Stable. - Discharge Instructions: Finger or Thumb Dislocation. - Medication Reconciliation Form, Thank You Letter, Antibiotic Education, Prescription Opioid Use form. - Follow up: Yves Bingham MD; When: As needed; Reason: If symptoms return, Recheck today's complaints, Continuance of care, Re-evaluation by your physician. - Problem is new. - Symptoms have improved. Signatures: Dispatcher [employer] Calos Fisher MD MD cha Roszak, Josh, PA PA jr8 Enzo Bolaños RN RN la1 Corrections: (The following items were deleted from the chart) 06/10 19:24 19:10 06/10/2018 19:10 Discharged to Home. Impression: Dislocation of proximal la1 interphalangeal joint of right ring finger. Condition is Stable. Forms are Medication Reconciliation Form, Thank You Letter, Antibiotic Education, Prescription Opioid Use. Follow up: Yves Bingham; When: As needed; Reason: If symptoms return, Recheck today's complaints, Continuance of care, Re-evaluation by your physician. Problem is new. Symptoms have improved. jr8
--- NOTE | 2018-06-10 19:10 | ER ---
Nurse's Notes [facility] Name: Kerry Castaneda Age: 62 yrs Sex: Female : 1955 Arrival Date: 06/10/2018 Time: 18:06 Bed 30 Private MD: Luis Eduardo Kendall R Diagnosis: Dislocation of proximal interphalangeal joint of right ring finger Presentation: 06/10 18:15 Presenting complaint: Patient states: Pt had mechanical fall from cough and right la1 fourth finger appears dislocated. Transition of care: patient was not received from another setting of care. Onset of symptoms was June 10, 2018. Risk Assessment: Do you want to hurt yourself or someone else? Patient reports no desire to harm self or others. Initial Sepsis Screen: Does the patient meet any 2 criteria? No. Patient's initial sepsis screen is negative. Does the patient have a suspected source of infection? No. Patient's initial sepsis screen is negative. Care prior to arrival: None. 18:15 Method Of Arrival: Ambulatory la1 18:15 Acuity: MOIRA 4 la1 Historical: - Allergies: 18:18 ANTIHISTAMINES; la1 18:18 Morphine; la1 - PMHx: 18:18 Blood Stream Infection; Diabetes - IDDM; High Cholesterol; Hypertension; narcolepsy; la1 Seizures; THROAT CA; - Immunization history:: Adult Immunizations up to date. - Social history:: Smoking status: Patient/guardian denies using tobacco. - Ebola Screening: : No symptoms or risks identified at this time. Screenin:19 Abuse screen: Denies threats or abuse. Nutritional screening: No deficits noted. la1 Tuberculosis screening: No symptoms or risk factors identified. Fall Risk None identified. Assessment: 18:18 General: Appears in no apparent distress. Behavior is calm, cooperative. Pain: Denies la1 pain. Neuro: Level of Consciousness is awake, alert, obeys commands, Oriented to person, place, time, situation. Cardiovascular: Capillary refill. Respiratory: Airway is patent Respiratory effort is even, unlabored, Respiratory pattern is regular, symmetrical, Breath sounds are clear bilaterally. GI: No signs and/or symptoms were reported involving the gastrointestinal system. : No signs and/or symptoms were reported regarding the genitourinary system. Musculoskeletal: Circulation, motion, and sensation intact. Capillary refill < 3 seconds, Range of motion: intact in all extremities, Bony deformity noted of dorsal aspect of middle phalanx of right ring finger. Vital Signs: 18:18 BP 112 / 76; Pulse 77; Resp 16; Temp 97.8; Pulse Ox 98% on R/A; Weight 90.26 kg; Height la1 5 ft. 2 in. (157.48 cm); 18:18 Body Mass Index 36.40 (90.26 kg, 157.48 cm) la1 ED Course: 18:06 Patient arrived in ED. rg4 18:06 Luis Eduardo Kendall MD is Private Physician. rg4 18:10 [facility]. jr8 18:10 Calos Pena MD is Attending Physician. jr8 18:15 Enzo Bolaños, KIMBERLY is Primary Nurse. la1 18:16 Triage completed. la1 18:18 Arm band placed on left wrist. la1 18:19 Bed in low position. Call light in reach. Side rails up X 1. Pulse ox on. NIBP on. la1 19:05 XRAY Hand RIGHT 3 View In Process Unspecified. EDMS 19:09 Yves Bingham MD is Referral Physician. jr8 19:24 No provider procedures requiring assistance completed. Patient did not have IV access la1 during this emergency room visit. Administered Medications: No medications were administered Outcome: 19:10 Discharge ordered by . jr8 19:24 Discharged to home ambulatory. la1 19:24 Condition: stable 19:24 Discharge instructions given to patient, family, Instructed on discharge instructions, follow up and referral plans. Demonstrated understanding of instructions, follow-up care. 19:24 Patient left the ED. la1 Signatures: Dispatcher [employer] EDMS Curtis Patrick PA PA jrEnzo Tomas, RN RN la1 Fatimah Dukes rg4
--- NOTE | 2018-06-10 19:34 | RAD REPORT ---
EXAM DESCRIPTION: RAD - Hand Right 3 View - 06/10/2018 7:05 pm CLINICAL HISTORY: Right hand pain status post injury FINDINGS: No fracture or dislocation is seen. The bones are osteoporotic
[2018-06-10 19:44] VITALS: BP 112/76; TEMP 97.8; O2SAT 98
== END 2018-06-10 19:24 | disposition home or self-care (01) ==
LOC: ER 18:03
DX: S63.284A Dislocation of proximal interphalangeal joint of right ring finger, initial encounter (principal); W04.XXXA Fall while being carried or supported by other persons, initial encounter; Y93.9 Activity, unspecified; Y92.9 Unspecified place or not applicable; Z85.12 Personal history of malignant neoplasm of trachea; Z88.5 Allergy status to narcotic agent; Z88.8 Allergy status to other drugs, medicaments and biological substances; I10 Essential (primary) hypertension
CPT/HCPCS: 99283